=== PATIENT | female | born 1950 | race American Indian/Alaskan Native ===

== ENCOUNTER 2016-08-11 15:04 | Inpatient (IN) | payer MEDICARE ==
[2016-08-11 15:45] LABS: Urine Drugs of Abuse Note Disclamer
[2016-08-11 15:58] LABS: Hematocrit 21.3 % (30.3-42.9); Hemoglobin 6.8 gm/dl (10.1-14.3); Mean Corpuscular HGB Conc 32 % (30-34); Mean Corpuscular Hemoglobin 29 pg (28-32); Mean Corpuscular Volume 91 fl (79-97); Platelet Count 315 K/mm3 (140-440); Red Blood Count 2.33 M/mm3 (3.65-5.03); Red Cell Distribution Width 18.6 % (13.2-15.2)
[2016-08-11 16:05] LABS: White Blood Count 51.4 K/mm3 (4.5-11.0)
[2016-08-11 16:10] LABS: Bacteria,Urine 4+ /HPF (Negative); Bilirubin,Urine NEG (Negative); Blood,Urine SM (Negative); Ketones,Urine TR mg/dL (Negative); Leukocyte Esterase,Urine MOD (Negative); Nitrite,Urine NEG (Negative); Urobilinogen,Urine < 2.0 mg/dL (<2.0)
[2016-08-11 16:22] LABS: Albumin 2.3 g/dL (3.9-5); Albumin/Globulin Ratio 0.5 %; BUN/Creatinine Ratio 16.31; Calcium 8.2 mg/dL (8.4-10.2); Chloride 91.1 mmol/L (98-107); Magnesium 2.2 mg/dL (1.7-2.3); Potassium 3.2 mmol/L (3.6-5.0); Total Protein 7.1 g/dL (6.3-8.2)
[2016-08-11 16:28] LABS: Protein,Urine >500 mg/dL (Negative); WBC,Urine > 182.0 /HPF (0.0-6.0)
--- NOTE | 2016-08-11 16:34 | Emergency Department Report ---
HPI - General Chief Complaint: Altered Mental Status Time Seen by Provider: 08/11/16 16:12 - HPI HPI: Room 26 The patient is a 65-year-old female sent from the sn[facility] with a chief complaint of altered mental status. Family states the patient came back from dialysis today at approximately noon and was reported to have been in normal state of health. At 14:00 the patient was found unresponsive in the snf. Although a CODE BLUE was called CPR was performed. Family states by the time EMS arrived the patient began speaking again. Family reports the patient has had episodes of nausea and vomiting for the past 2 days. Today the patient only complained of pain in her legs and back as she normally does for her decubitus ulcers. 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 Anemia - Surgical History Additional Surgical History: toe surgery, PEG tube - Family History Family history: no significant - Social History Smoking Status: Unknown if ever smoked Substance Use Type: None - Medications Home Medications: Home Medications Medication Instructions Recorded Confirmed Last Taken Type Bisacodyl [Dulcolax suppos] 10 mg CO QDAY PRN #30 supp.rect 12/14/15 08/11/16 Unknown Rx levETIRAcetam [Keppra TAB] 500 mg PO Q12H tablet 12/14/15 08/11/16 Unknown Rx Acetaminophen [Acetaminophen TAB] 650 mg FEEDTUBE Q6HR PRN 03/10/16 08/11/16 Unknown History Ascorbic Acid [Vitamin C] 500 mg FEEDTUBE BID 03/10/16 08/11/16 Unknown History Diphenhydramine HCl [Benadryl 25 mg FEEDTUBE Q6H PRN 03/10/16 08/11/16 Unknown History Allergy TAB] Duloxetine HCl [Cymbalta] 60 mg FEEDTUBE QDAY 03/10/16 08/11/16 Unknown History Hyoscyamine Sulfate [Hyoscyamine 0.125 mg PO Q4H PRN 03/10/16 08/11/16 Unknown History Rapdis 0.125 mg] Insulin Regular, Human [HumuLIN R] 100 units SQ ACHS 03/10/16 08/11/16 Unknown History LORazepam [Ativan] 1 mg PO TID PRN 03/10/16 08/11/16 Unknown History Metoprolol Tartrate 100 mg PO BID 03/10/16 08/11/16 Unknown History amLODIPine [Norvasc] 10 mg FEEDTUBE QDAY 03/10/16 08/11/16 Unknown History hydrALAZINE [Apresoline TAB] 100 mg FEEDTUBE TID 03/10/16 08/11/16 Unknown History Insulin Aspart Prot/Aspart See Protocol SUB-Q ACHS 05/27/16 08/11/16 Unknown History [NovoLOG Mix 70/30 VIAL] Insulin Glargine [Lantus VIAL] 10 unit SUB-Q QHS 05/27/16 08/11/16 Unknown History Multivitamins Liq [Multiple 15 ml FEEDTUBE QDAY 05/27/16 08/11/16 Unknown History Vitamin Liq (Theragran)] Nut.tx.gluc.intoler,Lac-Fr,Soy 50 ml FEEDTUBE CONT 05/27/16 08/11/16 Unknown History [Glucerna 1.5 [place]] oxyCODONE /ACETAMINOPHEN [Percocet 1 tab FEEDTUBE Q6H PRN 05/27/16 08/11/16 Unknown History 5/325 mg] HYDROcodone/APAP 5-325 [[place] 1 each FEEDTUBE Q12HR #10 05/31/16 08/11/16 Unknown Rx 5-325 mg TAB] Lipase/Protease/Amylase [Pancreaze 1 each FEEDTUBE PRN PRN #1 capsule 05/31/16 08/11/[address] 10,500 Unit] Sennosides Tab [Senokot] 8.6 mg FEEDTUBE QDAY tablet 05/31/16 08/11/16 Unknown Rx Simple Syrup 15 ml FEEDTUBE PRN PRN #1 oral.liqd 05/31/16 08/11/16 Unknown Rx Simple Syrup 30 ml FEEDTUBE PRN PRN #1 oral.liqd 05/31/16 08/11/16 Unknown Rx Sodium Bicarbonate 325 mg FEEDTUBE PRN PRN #1 tablet 05/31/16 08/11/16 Unknown Rx Aspirin EC [Aspirin Enteric Coated 325 mg FEEDTUBE QDAY 08/11/16 08/11/16 Unknown History TAB] ED Review of Systems ROS: Stated complaint: AMS Other details as noted in HPI Comment: Unobtainable due to pts medical conditions Gastrointestinal: nausea, vomiting Physical Exam - Physical Exam Vital Signs: Vital Signs 08/11/16 15:39 Pulse Rate 114 H Respiratory 28 H Rate Blood Pressure 174/116 [Right] O2 Sat by Pulse 96 Oximetry Physical Exam: GENERAL: The patient is well-developed well-nourished elderly female lying on stretcher appearing altered mumbling unintelligible speech at times. [] HEENT: Normocephalic. Atraumatic. Extraocular motions are intact. NECK: Supple. Trachea midline CHEST/LUNGS: Clear to auscultation. There is slight tachypnea HEART/CARDIOVASCULAR: Regular. There is tachycardia. There is no gallop rub or murmur. ABDOMEN: Abdomen is soft, nontender. Patient has normal bowel sounds. There is no abdominal distention. SKIN: There is no rash. There is no edema. There is no diaphoresis. NEURO: The patient is awake but appears lethargic. The patient has mumbling speech. Patient is not cooperative with interview MUSCULOSKELETAL: There is no evidence of acute injury. ED Course Vital Signs 08/11/16 15:39 Pulse Rate 114 H Respiratory 28 H Rate Blood Pressure 174/116 [Right] O2 Sat by Pulse 96 Oximetry ED Medical Decision Making - Lab Data Result diagrams: 08/11/16 15:28 08/11/16 15:28 Laboratory Tests 08/11/16 08/11/16 08/11/16 15:17 15:17 15:28 WBC 51.4 H* RBC 2.33 L Hgb 6.8 L Hct 21.3 L MCV 91 MCH 29 MCHC 32 RDW 18.6 H Plt Count 315 Add Manual Diff Complete Total Counted 200 Seg Neuts % (Manual) 89.5 H Band Neutrophils % 0 Lymphocytes % (Manual) 5.5 L Reactive Lymphs % (Man) 0 Monocytes % (Manual) 4.0 Eosinophils % (Manual) 0 Basophils % (Manual) 0 Metamyelocytes % 0 Myelocytes % 0 Promyelocytes % 0 Blast Cells % 1.0 Nucleated RBC % Not Reportable Seg Neutrophils # Man 46.0 H Band Neutrophils # 0.0 Lymphocytes # (Manual) 2.8 Abs React Lymphs (Man) 0.0 Monocytes # (Manual) 2.1 H Eosinophils # (Manual) 0.0 Basophils # (Manual) 0.0 Metamyelocytes # 0.0 Myelocytes # 0.0 Promyelocytes # 0.0 Blast Cells # 0.4 WBC Morphology Not Reportable Hypersegmented Neuts Not Reportable Hyposegmented Neuts Not Reportable Hypogranular Neuts Not Reportable Smudge Cells Not Reportable Toxic Granulation Not Reportable Toxic Vacuolation Not Reportable Dohle Bodies Not Reportable Pelger-Huet Anomaly Not Reportable Quynh Rods Not Reportable Platelet Estimate Appears normal Clumped Platelets Not Reportable Plt Clumps, EDTA Not Reportable Large Platelets Not Reportable Giant Platelets Not Reportable Platelet Satelliting Not Reportable Plt Morphology Comment Not Reportable RBC Morphology Not Reportable Dimorphic RBCs Not Reportable Polychromasia Not Reportable Hypochromasia Not Reportable Poikilocytosis Not Reportable Anisocytosis Not Reportable Microcytosis 1+ Macrocytosis Not Reportable Spherocytes Not Reportable Pappenheimer Bodies Not Reportable Sickle Cells Not Reportable Target Cells Not Reportable Tear Drop Cells Not Reportable Ovalocytes Not Reportable Helmet Cells Not Reportable [place] Bodies Not Reportable [place] Rings Not Reportable David Cells Not Reportable Bite Cells Not Reportable Crenated Cell Not Reportable Elliptocytes Not Reportable Acanthocytes (Spur) Not Reportable Rouleaux Not Reportable Hemoglobin C Crystals Not Reportable Schistocytes Not Reportable Malaria parasites Not Reportable Vinny Bodies Not Reportable Hem Pathologist Commnt Sent to pathology Sodium Potassium Chloride Carbon Dioxide Anion Gap BUN Creatinine Estimated GFR BUN/Creatinine Ratio Glucose Lactic Acid Calcium Magnesium Total Bilirubin AST ALT Alkaline Phosphatase Total Protein Albumin Albumin/Globulin Ratio Urine Color [place] Urine Turbidity Turbid Urine pH 5.0 Ur Specific [place] 1.022 Urine Protein >500 Urine Glucose (UA) Neg Urine Ketones Tr Urine Blood Sm Urine Nitrite Neg Ur Reducing Substances Not Reportable Urine Bilirubin Neg Urine Ictotest Not Reportable Urine Urobilinogen < 2.0 Ur Leukocyte Esterase Mod Urine WBC (Auto) > 182.0 H Urine RBC (Auto) 48.0 U Epithel Cells (Auto) 4.0 Urine Bacteria (Auto) 4+ Urine HCG, Qual Negative Salicylates Urine Opiates Screen Presumptive negative Urine Methadone Screen Presumptive negative Acetaminophen Ur Barbiturates Screen Presumptive negative Ur Phencyclidine Scrn Presumptive negative Ur Amphetamines Screen Presumptive negative U Benzodiazepines Scrn Presumptive negative Urine Cocaine Screen Presumptive negative U Marijuana (THC) Screen Presumptive negative Drugs of Abuse Note Disclamer Plasma/Serum Alcohol 08/11/16 08/11/16 08/11/16 15:28 15:28 15:28 WBC RBC Hgb Hct MCV MCH MCHC RDW Plt Count Add Manual Diff Total Counted Seg Neuts % (Manual) Band Neutrophils % Lymphocytes % (Manual) Reactive Lymphs % (Man) Monocytes % (Manual) Eosinophils % (Manual) Basophils % (Manual) Metamyelocytes % Myelocytes % Promyelocytes % Blast Cells % Nucleated RBC % Seg Neutrophils # Man Band Neutrophils # Lymphocytes # (Manual) Abs React Lymphs (Man) Monocytes # (Manual) Eosinophils # (Manual) Basophils # (Manual) Metamyelocytes # Myelocytes # Promyelocytes # Blast Cells # WBC Morphology Hypersegmented Neuts Hyposegmented Neuts Hypogranular Neuts Smudge Cells Toxic Granulation Toxic Vacuolation Dohle Bodies Pelger-Huet Anomaly Quynh Rods Platelet Estimate Clumped Platelets Plt Clumps, EDTA Large Platelets Giant Platelets Platelet Satelliting Plt Morphology Comment RBC Morphology Dimorphic RBCs Polychromasia Hypochromasia Poikilocytosis Anisocytosis Microcytosis Macrocytosis Spherocytes Pappenheimer Bodies Sickle Cells Target Cells Tear Drop Cells Ovalocytes Helmet Cells [place] Bodies [place] Rings David Cells Bite Cells Crenated Cell Elliptocytes Acanthocytes (Spur) Rouleaux Hemoglobin C Crystals Schistocytes Malaria parasites Vinny Bodies Hem Pathologist Commnt Sodium 133 L Potassium 3.2 L Chloride 91.1 L Carbon Dioxide 19 L Anion Gap 26 BUN 31 H Creatinine 1.9 H Estimated GFR 32 BUN/Creatinine Ratio 16.31 Glucose 180 H Lactic Acid 5.4 H* Calcium 8.2 L Magnesium 2.2 Total Bilirubin 1.0 AST 258 H ALT 201 H Alkaline Phosphatase 458 H Total Protein 7.1 Albumin 2.3 L Albumin/Globulin Ratio 0.5 Urine Color Urine Turbidity Urine pH Ur Specific [place] Urine Protein Urine Glucose (UA) Urine Ketones Urine Blood Urine Nitrite Ur Reducing Substances Urine Bilirubin Urine Ictotest Urine Urobilinogen Ur Leukocyte Esterase Urine WBC (Auto) Urine RBC (Auto) U Epithel Cells (Auto) Urine Bacteria (Auto) Urine HCG, Qual Salicylates < 0.3 L Urine Opiates Screen Urine Methadone Screen Acetaminophen Ur Barbiturates Screen Ur Phencyclidine Scrn Ur Amphetamines Screen U Benzodiazepines Scrn Urine Cocaine Screen U Marijuana (THC) Screen Drugs of Abuse Note Plasma/Serum Alcohol 08/11/16 08/11/16 15:28 15:28 WBC RBC Hgb Hct MCV MCH MCHC RDW Plt Count Add Manual Diff Total Counted Seg Neuts % (Manual) Band Neutrophils % Lymphocytes % (Manual) Reactive Lymphs % (Man) Monocytes % (Manual) Eosinophils % (Manual) Basophils % (Manual) Metamyelocytes % Myelocytes % Promyelocytes % Blast Cells % Nucleated RBC % Seg Neutrophils # Man Band Neutrophils # Lymphocytes # (Manual) Abs React Lymphs (Man) Monocytes # (Manual) Eosinophils # (Manual) Basophils # (Manual) Metamyelocytes # Myelocytes # Promyelocytes # Blast Cells # WBC Morphology Hypersegmented Neuts Hyposegmented Neuts Hypogranular Neuts Smudge Cells Toxic Granulation Toxic Vacuolation Dohle Bodies Pelger-Huet Anomaly Quynh Rods Platelet Estimate Clumped Platelets Plt Clumps, EDTA Large Platelets Giant Platelets Platelet Satelliting Plt Morphology Comment RBC Morphology Dimorphic RBCs Polychromasia Hypochromasia Poikilocytosis Anisocytosis Microcytosis Macrocytosis Spherocytes Pappenheimer Bodies Sickle Cells Target Cells Tear Drop Cells Ovalocytes Helmet Cells [place] Bodies [place] Rings David Cells Bite Cells Crenated Cell Elliptocytes Acanthocytes (Spur) Rouleaux Hemoglobin C Crystals Schistocytes Malaria parasites Vinny Bodies Hem Pathologist Commnt Sodium Potassium Chloride Carbon Dioxide Anion Gap BUN Creatinine Estimated GFR BUN/Creatinine Ratio Glucose Lactic Acid Calcium Magnesium Total Bilirubin AST ALT Alkaline Phosphatase Total Protein Albumin Albumin/Globulin Ratio Urine Color Urine Turbidity Urine pH Ur Specific [place] Urine Protein Urine Glucose (UA) Urine Ketones Urine Blood Urine Nitrite Ur Reducing Substances Urine Bilirubin Urine Ictotest Urine Urobilinogen Ur Leukocyte Esterase Urine WBC (Auto) Urine RBC (Auto) U Epithel Cells (Auto) Urine Bacteria (Auto) Urine HCG, Qual Salicylates Urine Opiates Screen Urine Methadone Screen Acetaminophen < 15.0 Ur Barbiturates Screen Ur Phencyclidine Scrn Ur Amphetamines Screen U Benzodiazepines Scrn Urine Cocaine Screen U Marijuana (THC) Screen Drugs of Abuse Note Plasma/Serum Alcohol < 0.01 - EKG Data -: EKG Interpreted by Me EKG shows normal: sinus rhythm Rate: tachycardia (112 bpm) - EKG Data When compared to previous EKG there are: previous EKG unavailable - Radiology Data Radiology results: image reviewed (chest x-ray) interpreted by me: Chest [id number]. Slightly obscured left costophrenic angle - Differential Diagnosis sepsis, leukemia, UTI Critical care attestation.: If time is entered above; I have spent that time in minutes in the direct care of this critically ill patient, excluding procedure time. ED Disposition Clinical Impression: UTI (urinary tract infection), Lactic acidosis, Altered mental status, Leukocytosis Disposition: OP ADMITTED IP TO THIS HOSP Is pt being admited?: Yes Does the pt Need Aspirin: Yes Condition: Serious Time of Disposition: 17:10 (hospitalist paged)
[2016-08-11 16:41] LABS: Basophils % (Manual) 0 % (0.0-1.8); Eosinophils % (Manual) 0 % (0.0-4.3)
[2016-08-11 16:46] LABS: Diff Status Complete; Microcytosis 1+
[2016-08-11] MEDS: TYLENOL FEEDTUBE PRN (16:56)
[2016-08-11] MEDS ORDERED: ZOSYN/NS 2.25 GM/50ML 50 ML IV ONE (17:30)
[2016-08-11] MEDS ORDERED: MORPHINE ONE (18:14)
[2016-08-11] MEDS ORDERED: DULCOLAX PR PRN (18:53)
[2016-08-11] MEDS ORDERED: TYLENOL PO PRN (18:53)
[2016-08-11] MEDS ORDERED: ZOFRAN IV PRN (18:53)
[2016-08-11] MEDS ORDERED: MILK OF MAGNESIA PO PRN (18:53)
[2016-08-11] MEDS ORDERED: NACL 0.45% 1000 ML 1,000 ML IV SCH (19:00)
[2016-08-11] MEDS ORDERED: VANCOMYCIN/NS 1 GM/250 ML 250 ML IV ONE (19:01)
[2016-08-11] MEDS ORDERED: NACL 0.9% 500 ML 500 ML IV NR (19:11)
[2016-08-11] MEDS ORDERED: APRESOLINE FEEDTUBE SCH (20:00)
--- NOTE | 2016-08-11 20:34 | History and Physical Report ---
History of Present Illness Date of examination: 08/11/16 Chief complaint: Altered mental status History of present illness: 65-year-old AA female sent from the [facility] with a chief complaint of altered mental status. Family states the patient came back from dialysis today at approximately noon and was reported to have been in normal state of health. At 14:00 the patient was found unresponsive in the snf. Family states by the time EMS arrived the patient began speaking again. Family reports the patient has had episodes of nausea and vomiting for the past 2 days. Today the patient only complained of pain in her legs and back as she normally does for her decubitus ulcers. Patient appears confused and does not answer questions. Family at bed side. Unable to obtain any history whatsoever from the patient. Her initial blood pressure was 170/116. At this time her blood pressure dropped to 92 systolic. She is tachycardiac, marked leukocytosis left shift and elevated lactate levels. She has UTI and multiple decubitus ulcers.She Will be admitted to intensive care unit with the presumptive diagnosis of septic shock. Past History Past Medical History: anemia, COPD, diabetes, ESRD, heart failure, hypertension , seizures, other (dementia, chronic pain, mood disorder) Past Surgical History: Other (permacath in the left chest, toe surgery) Social history: no significant social history Family history: no significant family history Medications and Allergies Allergies Allergy/AdvReac Type Severity Reaction Status Date / Time Iodine and Iodide Containing Allergy Nausea Verified 05/29/15 12:33 Produc Home Medications Medication Instructions Recorded Confirmed Last Taken Type Bisacodyl [Dulcolax suppos] 10 mg NC QDAY PRN #30 supp.rect 12/14/15 08/11/16 Unknown Rx levETIRAcetam [Keppra TAB] 500 mg PO Q12H tablet 12/14/15 08/11/16 Unknown Rx Acetaminophen [Acetaminophen TAB] 650 mg FEEDTUBE Q6HR PRN 03/10/16 08/11/16 Unknown History Ascorbic Acid [Vitamin C] 500 mg FEEDTUBE BID 03/10/16 08/11/16 Unknown History Diphenhydramine HCl [Benadryl 25 mg FEEDTUBE Q6H PRN 03/10/16 08/11/16 Unknown History Allergy TAB] Duloxetine HCl [Cymbalta] 60 mg FEEDTUBE QDAY 03/10/16 08/11/16 Unknown History Hyoscyamine Sulfate [Hyoscyamine 0.125 mg PO Q4H PRN 03/10/16 08/11/16 Unknown History Rapdis 0.125 mg] Insulin Regular, Human [HumuLIN R] 100 units SQ ACHS 03/10/16 08/11/16 Unknown History LORazepam [Ativan] 1 mg PO TID PRN 03/10/16 08/11/16 Unknown History Metoprolol Tartrate 100 mg PO BID 03/10/16 08/11/16 Unknown History amLODIPine [Norvasc] 10 mg FEEDTUBE QDAY 03/10/16 08/11/16 Unknown History hydrALAZINE [Apresoline TAB] 100 mg FEEDTUBE TID 03/10/16 08/11/16 Unknown History Insulin Aspart Prot/Aspart See Protocol SUB-Q ACHS 05/27/16 08/11/16 Unknown History [NovoLOG Mix 70/30 VIAL] Insulin Glargine [Lantus VIAL] 10 unit SUB-Q QHS 05/27/16 08/11/16 Unknown History Multivitamins Liq [Multiple 15 ml FEEDTUBE QDAY 05/27/16 08/11/16 Unknown History Vitamin Liq (Theragran)] Nut.tx.gluc.intoler,Lac-Fr,Soy 50 ml FEEDTUBE CONT 05/27/16 08/11/16 Unknown History [Glucerna 1.5 [place]] oxyCODONE /ACETAMINOPHEN [Percocet 1 tab FEEDTUBE Q6H PRN 05/27/16 08/11/16 Unknown History 5/325 mg] HYDROcodone/APAP 5-325 [[place] 1 each FEEDTUBE Q12HR #10 05/31/16 08/11/16 Unknown Rx 5-325 mg TAB] Lipase/Protease/Amylase [Pancreaze 1 each FEEDTUBE PRN PRN #1 capsule 05/31/16 08/11/[address] 10,500 Unit] Sennosides Tab [Senokot] 8.6 mg FEEDTUBE QDAY tablet 05/31/16 08/11/16 Unknown Rx Simple Syrup 15 ml FEEDTUBE PRN PRN #1 oral.liqd 05/31/16 08/11/16 Unknown Rx Simple Syrup 30 ml FEEDTUBE PRN PRN #1 oral.liqd 10/06/16 12/17/16 Unknown Rx Sodium Bicarbonate 325 mg FEEDTUBE PRN PRN #1 tablet 05/31/16 08/11/16 Unknown Rx Aspirin EC [Aspirin Enteric Coated 325 mg FEEDTUBE QDAY 08/11/16 08/11/16 Unknown History TAB] Active Meds: Active Medications Acetaminophen (Tylenol) 1,000 mg FEEDTUBE Q6H PRN PRN Reason: Pain, Mild (1-3) Last Admin: 08/11/16 16:56 Dose: 1,000 mg Albuterol/Ipratropium (Duoneb 0.5 Mg-3 Mg/3 Ml Soln) 1 ampul IH Q8HRT LUCITA Bisacodyl (Dulcolax) 10 mg NC QDAY PRN PRN Reason: Constipation unrelieved by MOM Heparin Sodium (Porcine) (Heparin) 5,000 unit SUB-Q Q12HR LUCITA Vancomycin HCl (Vancomycin/Ns 1 Gm/250 Ml) 250 mls @ 167 mls/hr IV ONCE.ED ONE PRN Reason: Protocol Stop: 08/11/16 20:30 Last Admin: 08/11/16 20:18 Dose: 167 mls/hr Piperacillin Sod/Tazobactam Sod (Zosyn/Ns 2.25 Gm/50ml) 50 mls @ 50 mls/30 min IV Q8H [place] Sodium Chloride (Nacl 0.9% 500 Ml) 500 mls @ 0 mls/hr IV ONCE.ED NR PRN Reason: As Directed Stop: 08/12/16 19:10 Insulin Aspart (Novolog) 0 units SUB-Q ACHS LUCITA PRN Reason: Protocol Levetiracetam (Keppra) 500 mg PO BID LUCITA Magnesium Hydroxide (Milk Of Magnesia) 30 ml PO Q4H PRN PRN Reason: Constipation Morphine Sulfate (Morphine) 2 mg IV Q4H PRN PRN Reason: Pain, Moderate (4-6) Ondansetron HCl (Zofran) 4 mg IV Q8H PRN PRN Reason: N/V unrelieved by Reglan Potassium Chloride (Potassium Chloride) 20 meq FEEDTUBE QDAY LUCITA Review of Systems All systems: negative (as stated above in the history of present illness otherwise unobtainable) Exam - Physical Exam Narrative exam: Well-developed well-nourished female who is confused and mumbling "pain"not in any acute respiratory distress - Constitutional Vitals: Temp Pulse Resp BP Pulse Ox 98.8 F 91 H 26 H 92/47 96 08/11/16 20:13 08/11/16 20:13 08/11/16 20:13 08/11/16 20:13 08/11/16 20:13 General appearance: Present: no acute distress - EENT Eyes: Present: PERRL, EOM intact ENT: hearing intact, clear oral mucosa - Neck Neck: Present: supple, normal ROM. Absent: masses or JVD - Respiratory Respiratory effort: normal Respiratory: bilateral: CTA, diminished - Cardiovascular Rhythm: other (tachycardiac) Heart Sounds: Present: S1 & S2 - Extremities Extremities: No edema Extremity abnormal: pulses diminished, other (has bilateral ankle decubiti) - Abdominal General gastrointestinal: Present: soft, non-tender, other (has a PEG tube, has a sacral decubitus). Absent: hepatomegaly, splenomegaly - Integumentary Integumentary: Present: clear, warm - Neurologic Neurologic: focal deficits, moves all extremities Results - Labs CBC & Chem 7: 08/11/16 15:28 08/11/16 15:28 Labs: Abnormal lab results 08/11/16 08/11/16 08/11/16 Range/Units 15:17 15:28 15:28 WBC 51.4 H* (4.5-11.0) K/mm3 RBC 2.33 L (3.65-5.03) M/mm3 Hgb 6.8 L (10.1-14.3) gm/dl Hct 21.3 L (30.3-42.9) % RDW 18.6 H (13.2-15.2) % Seg Neuts % (Manual) 89.5 H (40.0-70.0) % Lymphocytes % (Manual) 5.5 L (13.4-35.0) % Seg Neutrophils # Man 46.0 H (1.8-7.7) K/mm3 Monocytes # (Manual) 2.1 H (0.0-0.8) K/mm3 Sodium 133 L (137-145) mmol/L Potassium 3.2 L (3.6-5.0) mmol/L Chloride 91.1 L (98-107) mmol/L Carbon Dioxide 19 L (22-30) mmol/L BUN 31 H (7-17) mg/dL Creatinine 1.9 H (0.7-1.2) mg/dL Glucose 180 H (65-100) mg/dL Lactic Acid (0.7-2.0) mmol/L Calcium 8.2 L (8.4-10.2) mg/dL AST 258 H (5-40) units/L ALT 201 H (7-56) units/L Alkaline Phosphatase 458 H (35-129) units/L Ammonia (25-60) umol/L Albumin 2.3 L (3.9-5) g/dL Urine WBC (Auto) > 182.0 H (0.0-6.0) /HPF Salicylates (2.8-20.0) mg/dL 08/11/16 08/11/16 08/11/16 Range/Units 15:28 15:28 15:54 WBC (4.5-11.0) K/mm3 RBC (3.65-5.03) M/mm3 Hgb (10.1-14.3) gm/dl Hct (30.3-42.9) % RDW (13.2-15.2) % Seg Neuts % (Manual) (40.0-70.0) % Lymphocytes % (Manual) (13.4-35.0) % Seg Neutrophils # Man (1.8-7.7) K/mm3 Monocytes # (Manual) (0.0-0.8) K/mm3 Sodium (137-145) mmol/L Potassium (3.6-5.0) mmol/L Chloride (98-107) mmol/L Carbon Dioxide (22-30) mmol/L BUN (7-17) mg/dL Creatinine (0.7-1.2) mg/dL Glucose (65-100) mg/dL Lactic Acid 5.4 H* (0.7-2.0) mmol/L Calcium (8.4-10.2) mg/dL AST (5-40) units/L ALT (7-56) units/L Alkaline Phosphatase (35-129) units/L Ammonia 135.0 H (25-60) umol/L Albumin (3.9-5) g/dL Urine WBC (Auto) (0.0-6.0) /HPF Salicylates < 0.3 L (2.8-20.0) mg/dL //16 Range/Units 18:31 WBC (4.5-11.0) K/mm3 RBC (3.65-5.03) M/mm3 Hgb (10.1-14.3) gm/dl Hct (30.3-42.9) % RDW (13.2-15.2) % Seg Neuts % (Manual) (40.0-70.0) % Lymphocytes % (Manual) (13.4-35.0) % Seg Neutrophils # Man (1.8-7.7) K/mm3 Monocytes # (Manual) (0.0-0.8) K/mm3 Sodium (137-145) mmol/L Potassium (3.6-5.0) mmol/L Chloride (98-107) mmol/L Carbon Dioxide (22-30) mmol/L BUN (7-17) mg/dL Creatinine (0.7-1.2) mg/dL Glucose (65-100) mg/dL Lactic Acid 6.7 H* (0.7-2.0) mmol/L Calcium (8.4-10.2) mg/dL AST (5-40) units/L ALT (7-56) units/L Alkaline Phosphatase (35-129) units/L Ammonia (25-60) umol/L Albumin (3.9-5) g/dL Urine WBC (Auto) (0.0-6.0) /HPF Salicylates (2.8-20.0) mg/dL Assessment and Plan - Patient Problems (1) Septic shock Current Visit: Yes Status: Acute Plan to address problem: sepsis protocol initiated BC X 2 Serial serum lactate levels IV antibiotics with Zosyn and Vancomycin IV fluids(with caution as patient has ESRD) ID consult Discussed the patients condition and the prognosis with the family. Discussed about the code status They want everything done Prognosis is guarded (2) Altered mental status Current Visit: Yes Status: Acute Plan to address problem: Slightly toxic encephalopathy secondary to sepsis (3) Leukocytosis Current Visit: Yes Status: Acute Plan to address problem: Secondary to sepsis (4) UTI (urinary tract infection) Current Visit: Yes Status: Acute Plan to address problem: UA results reviewed Antibiotics initiated (5) Diabetes mellitus, type 2 Current Visit: No Status: Chronic Plan to address problem: Vital blood sugars with sliding scale coverage (6) HTN (hypertension) Current Visit: No Status: Chronic Qualifiers: Hypertension type: essential hypertension Qualified Code(s): I10 - Essential (primary) hypertension Plan to address problem: Initially upon arrival her blood pressure was 167/116 over since then it dropped to 92 systolic We will hold all her home antihypertensive medications (7) End stage renal disease Current Visit: Yes Status: Chronic Plan to address problem: Nephrology consult was requested (8) Severe anemia Current Visit: Yes Status: Acute Plan to address problem: Will type and cross match and transfuse 2 units of PRBC as she is symptomatic with tachycardia although tachycardia is possibly from septic shock (9) Seizure disorder Current Visit: Yes Status: Chronic Plan to address problem: We will continue antiseizure home medication via PEG tube Core Measure Documentation - Palliative Care Palliative Care/ Comfort Measures: Not Applicable - Core Measures Any of the following diagnoses?: none Critical care attestation.: If time is entered above; I have spent that time in minutes in the direct care of this critically ill patient, excluding procedure time. Critical Care Time: total time spent with the patient including examination, discussing the patient' s condition with the family and reviewing lab results was 45 min. She is a full code
[2016-08-11] MEDS ORDERED: NACL 0.9% 250ML 250 ML ONE (21:45)
[2016-08-11] MEDS ORDERED: NACL 0.9% 250ML 250 ML IV ONE (21:53)
[2016-08-11] MEDS ORDERED: LOPRESSOR PO SCH (22:00)
[2016-08-11] MEDS ORDERED: LEVOPHED DRIP 4 MG/NS 250 ML 250 ML IV ONE (22:02)
[2016-08-11] MEDS: LEVOPHED DRIP 4 MG/NS 250 ML 250 ML IV SCH (22:42)
[2016-08-11] MEDS: DUONEB 0.5 MG-3 MG/3 ML SOLN IH SCH (23:40)
[2016-08-12] MEDS: KEPPRA PO SCH ×3 (02:30→22:31)
[2016-08-12] MEDS: HEPARIN SUB-Q SCH ×3 (02:30→22:26)
[2016-08-12] MEDS: NOVOLOG SUB-Q SCH ×5 (02:38→22:50)
[2016-08-12] MEDS: MORPHINE IV PRN ×2 (02:39→20:28)
[2016-08-12] MEDS: ZOSYN/NS 2.25 GM/50ML 50 ML IV SCH ×3 (03:00→17:06)
[2016-08-12 06:12] LABS: Hematocrit 28.1 % (30.3-42.9); Hemoglobin 8.7 gm/dl (10.1-14.3); Mean Corpuscular HGB Conc 31 % (30-34); Mean Corpuscular Hemoglobin 28 pg (28-32); Mean Corpuscular Volume 90 fl (79-97); Platelet Count 292 K/mm3 (140-440); Red Blood Count 3.14 M/mm3 (3.65-5.03); Red Cell Distribution Width 18.3 % (13.2-15.2)
[2016-08-12 06:30] LABS: BUN/Creatinine Ratio 19.13; Calcium 8.2 mg/dL (8.4-10.2); Chloride 92.4 mmol/L (98-107)
[2016-08-12 06:31] LABS: White Blood Count 38.6 K/mm3 (4.5-11.0)
[2016-08-12 07:33] LABS: Basophils % (Manual) 0 % (0.0-1.8); Blastocytes % (Manual) 0 %
[2016-08-12 07:34] LABS: Anisocytosis 1+; Hypochromasia Few; Microcytosis 1+; Toxic Granulation Few
[2016-08-12 07:35] LABS: Diff Status Complete; Large Platelets Rare
[2016-08-12] MEDS: POTASSIUM CHLORIDE FEEDTUBE SCH (09:41)
[2016-08-12] MEDS: DUONEB 0.5 MG-3 MG/3 ML SOLN IH SCH ×3 (09:43→23:42)
--- NOTE | 2016-08-12 09:50 | Progress Note ---
Assessment and Plan Assessment and plan: 1. Septic shock. Patient with a significant leukocytosis but improved. Patient currently on Levophed. Wean pressors to maintain MAP greater than 65. Continue IV antibiotics and follow-up blood cultures. I did consultation pending. Trend lactate levels. 2. Toxic metabolic encephalopathy. Continue treating underlying causes. 3. UTI. Follow-up urine culture and continue antibiotics. 4. Diabetes mellitus, type II. Continue Accu-Cheks and sliding scale regular insulin. 5. ESRD. Nephrology consultation pending. Continue hemodialysis per nephrology. 6. Seizure disorder. Continue her antiepileptic home drug regimen via PEG tube. No new activity. Seizure precautions. 7. Acute on chronic anemia of chronic disease. Etiology is unknown. Check Hemoccult of stools, iron studies, B12, folate, reticulocyte count and LDH. Patient to receive 2 units PRBCs. Follow-up H&H. The high probability of a clinically significant, sudden or life threatening deterioration of the [hemodynamic] system(s) required my full and direct attention, intervention and personal management. The aggregate critical care time was [31] minutes. This time is in addition to time spent performing reported procedures but includes the following: [x] Data Review and interpretation [x] Patient assessment and monitoring of vital signs [x] Documentation [x] Medication orders and management History Interval history: 65-year-old female who presented from group home with complaints of altered mentation. Patient was admitted with diagnosis of septic shock secondary to UTI and decubitus ulcers. Patient is somnolent, somewhat confused and currently remains on Levophed. Hospitalist Physical - Constitutional Vitals: Temp Pulse Resp BP Pulse Ox 97.3 F L 90 17 115/46 99 08/12/16 07:09 08/12/16 09:15 08/12/16 09:15 08/12/16 09:15 08/12/16 09:15 General appearance: Present: no acute distress - EENT Eyes: Present: PERRL, EOM intact ENT: hearing intact, clear oral mucosa, dentition normal - Neck Neck: Present: supple, normal ROM - Respiratory Respiratory effort: normal Respiratory: bilateral: CTA - Cardiovascular Rhythm: regular Heart Sounds: Present: S1 & S2. Absent: gallop, rub - Extremities Extremities: no ischemia, No edema, Full ROM - Abdominal General gastrointestinal: soft, non-tender, non-distended, normal bowel sounds - Integumentary Integumentary: Present: clear, warm, dry - Neurologic Neurologic: CNII-XII intact, moves all extremities, other (confused) Results - Labs CBC & Chem 7: 08/12/16 05:30 08/12/16 05:30 Labs: Laboratory Last Values WBC 38.6 K/mm3 (4.5-11.0) H 08/12/16 05:30 RBC 3.14 M/mm3 (3.65-5.03) L 08/12/16 05:30 Hgb 8.7 gm/dl (10.1-14.3) L 08/12/16 05:30 Hct 28.1 % (30.3-42.9) L D 08/12/16 05:30 MCV 90 fl (79-97) 08/12/16 05:30 MCH 28 pg (28-32) 08/12/16 05:30 MCHC 31 % (30-34) 08/12/16 05:30 RDW 18.3 % (13.2-15.2) H 08/12/16 05:30 Plt Count 292 K/mm3 (140-440) 08/12/16 05:30 Add Manual Diff Complete 08/12/16 05:30 Total Counted 100 08/12/16 05:30 Seg Neuts % (Manual) 43.0 % (40.0-70.0) 08/12/16 05:30 Band Neutrophils % 37.0 % 08/12/16 05:30 Lymphocytes % (Manual) 9.0 % (13.4-35.0) L 08/12/16 05:30 Reactive Lymphs % (Man) 0 % 08/12/16 05:30 Monocytes % (Manual) 8.0 % (0.0-7.3) H 08/12/16 05:30 Eosinophils % (Manual) 3.0 % (0.0-4.3) 08/12/16 05:30 Basophils % (Manual) 0 % (0.0-1.8) 08/12/16 05:30 Metamyelocytes % 0 % 08/12/16 05:30 Myelocytes % 0 % 08/12/16 05:30 Promyelocytes % 0 % 08/12/16 05:30 Blast Cells % 0 % 08/12/16 05:30 Nucleated RBC % Not Reportable 08/12/16 05:30 Seg Neutrophils # Man 16.6 K/mm3 (1.8-7.7) H 08/12/16 05:30 Band Neutrophils # 14.3 K/mm3 08/12/16 05:30 Lymphocytes # (Manual) 3.5 K/mm3 (1.2-5.4) 08/12/16 05:30 Abs React Lymphs (Man) 0.0 K/mm3 08/12/16 05:30 Monocytes # (Manual) 3.1 K/mm3 (0.0-0.8) H 08/12/16 05:30 Eosinophils # (Manual) 1.2 K/mm3 (0.0-0.4) H 08/12/16 05:30 Basophils # (Manual) 0.0 K/mm3 (0.0-0.1) 08/12/16 05:30 Metamyelocytes # 0.0 K/mm3 08/12/16 05:30 Myelocytes # 0.0 K/mm3 08/12/16 05:30 Promyelocytes # 0.0 K/mm3 08/12/16 05:30 Blast Cells # 0.0 K/mm3 08/12/16 05:30 WBC Morphology Not Reportable 08/12/16 05:30 Hypersegmented Neuts Not Reportable 08/12/16 05:30 Hyposegmented Neuts Not Reportable 08/12/16 05:30 Hypogranular Neuts Not Reportable 08/12/16 05:30 Smudge Cells Not Reportable 08/12/16 05:30 Toxic Granulation Few 08/12/16 05:30 Toxic Vacuolation Not Reportable 08/12/16 05:30 Dohle Bodies Not Reportable 08/12/16 05:30 Pelger-Huet Anomaly Not Reportable 08/12/16 05:30 Quynh Rods Not Reportable 08/12/16 05:30 Platelet Estimate Appears normal 08/12/16 05:30 Clumped Platelets Not Reportable 08/12/16 05:30 Plt Clumps, EDTA Not Reportable 08/12/16 05:30 Large Platelets Rare 08/12/16 05:30 Giant Platelets Not Reportable 08/12/16 05:30 Platelet Satelliting Not Reportable 08/12/16 05:30 Plt Morphology Comment Not Reportable 08/12/16 05:30 RBC Morphology Not Reportable 08/12/16 05:30 Dimorphic RBCs Not Reportable 08/12/16 05:30 Polychromasia Not Reportable 08/12/16 05:30 Hypochromasia Few 08/12/16 05:30 Poikilocytosis Not Reportable 08/12/16 05:30 Anisocytosis 1+ 08/12/16 05:30 Microcytosis 1+ 08/12/16 05:30 Macrocytosis Not Reportable 08/12/16 05:30 Spherocytes Not Reportable 08/12/16 05:30 Pappenheimer Bodies Not Reportable 08/12/16 05:30 Sickle Cells Not Reportable 08/12/16 05:30 Target Cells Not Reportable 08/12/16 05:30 Tear Drop Cells Not Reportable 08/12/16 05:30 Ovalocytes Not Reportable 08/12/16 05:30 Helmet Cells Not Reportable 08/12/16 05:30 [place] Bodies Not Reportable 08/12/16 05:30 [place] Rings Not Reportable 08/12/16 05:30 [place] Cells Not Reportable 08/12/16 05:30 Bite Cells Not Reportable 08/12/16 05:30 Crenated Cell Not Reportable 08/12/16 05:30 Elliptocytes Not Reportable 08/12/16 05:30 Acanthocytes (Spur) Not Reportable 08/12/16 05:30 Rouleaux Not Reportable 08/12/16 05:30 Hemoglobin C Crystals Not Reportable 08/12/16 05:30 Schistocytes Not Reportable 08/12/16 05:30 Malaria parasites Not Reportable 08/12/16 05:30 [place] Bodies Not Reportable 08/12/16 05:30 Hem Pathologist Commnt No 08/12/16 05:30 Sodium 133 mmol/L (137-145) L 08/12/16 05:30 Potassium 3.0 mmol/L (3.6-5.0) L 08/12/16 05:30 Chloride 92.4 mmol/L (98-107) L 08/12/16 05:30 Carbon Dioxide 21 mmol/L (22-30) L 08/12/16 05:30 Anion Gap 23 mmol/L 08/12/16 05:30 BUN 44 mg/dL (7-17) H 08/12/16 05:30 Creatinine 2.3 mg/dL (0.7-1.2) H 08/12/16 05:30 Estimated GFR 26 ml/min 08/12/16 05:30 BUN/Creatinine Ratio 19.13 % 08/12/16 05:30 Glucose 270 mg/dL (65-100) H 08/12/16 05:30 POC Glucose 307 (70-105) H 08/12/16 02:35 Lactic Acid 2.0 mmol/L (0.7-2.0) 08/12/16 05:30 Calcium 8.2 mg/dL (8.4-10.2) L 08/12/16 05:30 Magnesium 2.2 mg/dL (1.7-2.3) 08/11/16 15:28 Total Bilirubin 1.0 mg/dL (0.1-1.2) 08/11/16 15:28 AST 258 units/L (5-40) H 08/11/16 15:28 ALT 201 units/L (7-56) H 08/11/16 15:28 Alkaline Phosphatase 458 units/L (35-129) H 08/11/16 15:28 Ammonia 135.0 umol/L (25-60) H 08/11/16 15:54 C-Reactive Protein 37.70 mg/dL (0.00-1.30) H 08/11/16 15:28 Total Protein 7.1 g/dL (6.3-8.2) 08/11/16 15:28 Albumin 2.3 g/dL (3.9-5) L 08/11/16 15:28 Albumin/Globulin Ratio 0.5 % 08/11/16 15:28 TSH 1.360 mlU/mL (0.270-4.200) 08/11/16 15:28 Urine Color [place] (Yellow) 08/11/16 15:17 Urine Turbidity Turbid (Clear) 08/11/16 15:17 Urine pH 5.0 (5.0-7.0) 08/11/16 15:17 Ur Specific [place] 1.022 (1.003-1.030) 08/11/16 15:17 Urine Protein >500 mg/dL (Negative) 08/11/16 15:17 Urine Glucose (UA) Neg mg/dL (Negative) 08/11/16 15:17 Urine Ketones Tr mg/dL (Negative) 08/11/16 15:17 Urine Blood Sm (Negative) 08/11/16 15:17 Urine Nitrite Neg (Negative) 08/11/16 15:17 Ur Reducing Substances Not Reportable 08/11/16 15:17 Urine Bilirubin Neg (Negative) 08/11/16 15:17 Urine Ictotest Not Reportable 08/11/16 15:17 Urine Urobilinogen < 2.0 mg/dL (<2.0) 08/11/16 15:17 Ur Leukocyte Esterase Mod (Negative) 08/11/16 15:17 Urine WBC (Auto) > 182.0 /HPF (0.0-6.0) H 08/11/16 15:17 Urine RBC (Auto) 48.0 /HPF (0.0-6.0) 08/11/16 15:17 U Epithel Cells (Auto) 4.0 /HPF (0-13.0) 08/11/16 15:17 Urine Bacteria (Auto) 4+ /HPF (Negative) 08/11/16 15:17 Urine HCG, Qual Negative (Negative) 08/11/16 15:17 Salicylates < 0.3 mg/dL (2.8-20.0) L 08/11/16 15:28 Urine Opiates Screen Presumptive negative 08/11/16 15:17 Urine Methadone Screen Presumptive negative 08/11/16 15:17 Acetaminophen < 15.0 ug/mL (10.0-30.0) 08/11/16 15:28 Ur Barbiturates Screen Presumptive negative 08/11/16 15:17 Ur Phencyclidine Scrn Presumptive negative 08/11/16 15:17 Ur Amphetamines Screen Presumptive negative 08/11/16 15:17 U Benzodiazepines Scrn Presumptive negative 08/11/16 15:17 Urine Cocaine Screen Presumptive negative 08/11/16 15:17 U Marijuana (THC) Screen Presumptive negative 08/11/16 15:17 Drugs of Abuse Note Disclamer 08/11/16 15:17 Plasma/Serum Alcohol < 0.01 gm% (0-0.07) 08/11/16 15:28 Blood Type B POSITIVE 08/11/16 19:45 Antibody Screen Negative 08/11/16 19:45 Crossmatch See Detail 08/11/16 19:45
[2016-08-12] MEDS ORDERED: NORVASC FEEDTUBE SCH (10:00)
--- NOTE | 2016-08-12 10:00 | XRay Report ---
AP CHEST: HISTORY: Altered mental status, leukocytosis Poor inspiration. A left IJ venous catheter terminates at the cavoatrial junction. AP view of the chest demonstrates a normal mediastinal and cardiac contour with clear lungs and normal bony and soft tissue structures. IMPRESSION: Negative expiratory chest x-ray.
--- NOTE | 2016-08-12 10:58 | Consultation ---
History of Present Illness - History of Present Illness Thank you for the consultation history of present illness patient is 62-year-old female who has been admitted here Currently she is dialysis dependent and yesterday after dialysis patient developed altered mental status also has intermittent history of nausea and vomiting for the last 2 days Chart was reviewed from this admission,Patient during this admission has also been noted to be hypertensive and also has elevated lactic acid level for which currently workup is under progress. Currently there is no acute emergent indication for renal replacement therapy, patient is currently dialyzed with permacath and need to rule out any possibility of bacteremia is there. She has many comorbiditiesat this time Patient was evaluated today Assessment and plan End-stage renal disease currently no acute emergent indication for renal replacement therapy in her case Patient was dialyzed yesterday and developed altered mental status subsequently Also has history of nausea and vomiting for last 2 days Hypokalemia needs replacement to keep her potassium around 4 can be given 20-40 mEq of potassium today Admitted with accelerated hypertension initial blood pressure was 170/116 and subsequently dropped profoundly to 92 systolic Encephalopathy altered mental status multifactorial at this time High suspicion for sepsis check cultures from the permacath to make sure she does not have bacteremia from the permacath infection currently in the left upper chest Patient also has other sources of infection including decubitus ulcer White cell count 51.4 thousand upon admission currently dropped down to 38.6 Anemia in end-stage renal disease post transfusion 8.7 now Lactic acid 5.4 upon admission peaked at 6.7 currently 2.0 Hyponatremia multifactorial to follow currently stable chronic Blood sugar uncontrolled 307 needs follow-up Patient currently does have an indwelling Rico catheter that needs to be changed discussed with nurse to change the Rico catheter History of multiple other comorbidities including anemia, COPD, diabetes, heart failure, hypertension, seizure, dementia Overall prognosis guarded to poor due to multiple comorbidities Supportive care for now We'll continue to follow and make recommendation from renal standpoint Past History Past Medical History: anemia, COPD, diabetes, ESRD, heart failure, hypertension , seizures, other (dementia, chronic pain, mood disorder) Past Surgical History: Other (permacath in the left chest, toe surgery) Social history: no significant social history Family history: no significant family history Medications and Allergies Allergies Allergy/AdvReac Type Severity Reaction Status Date / Time Iodine and Iodide Containing Allergy Nausea Verified 05/29/15 12:33 Produc Home Medications Medication Instructions Recorded Confirmed Last Taken Type Bisacodyl [Dulcolax suppos] 10 mg [place] QDAY PRN #30 supp.rect 12/14/15 08/11/16 Unknown Rx levETIRAcetam [Keppra TAB] 500 mg PO Q12H tablet 12/14/15 08/11/16 Unknown Rx Acetaminophen [Acetaminophen TAB] 650 mg FEEDTUBE Q6HR PRN 03/10/16 08/11/16 Unknown History Ascorbic Acid [Vitamin C] 500 mg FEEDTUBE BID 03/10/16 08/11/16 Unknown History Diphenhydramine HCl [Benadryl 25 mg FEEDTUBE Q6H PRN 03/10/16 08/11/16 Unknown History Allergy TAB] Duloxetine HCl [Cymbalta] 60 mg FEEDTUBE QDAY 03/10/16 08/11/16 Unknown History Insulin Regular, Human [HumuLIN R] 100 units SQ ACHS 03/10/16 08/11/16 Unknown History LORazepam [Ativan] 1 mg PO TID PRN 03/10/16 08/11/16 Unknown History Metoprolol Tartrate 100 mg PO BID 03/10/16 08/11/16 Unknown History amLODIPine [Norvasc] 10 mg FEEDTUBE QDAY 03/10/16 08/11/16 Unknown History hydrALAZINE [Apresoline TAB] 100 mg FEEDTUBE TID 03/10/16 08/11/16 Unknown History Insulin Aspart Prot/Aspart See Protocol SUB-Q ACHS 05/27/16 08/11/16 Unknown History [NovoLOG Mix 70/30 VIAL] Insulin Glargine [Lantus VIAL] 10 unit SUB-Q QHS 05/27/16 08/11/16 Unknown History Multivitamins Liq [Multiple 15 ml FEEDTUBE QDAY 05/27/16 08/11/16 Unknown History Vitamin Liq (Theragran)] Nut.tx.gluc.intoler,Lac-Fr,Soy 50 ml FEEDTUBE CONT 05/27/16 08/11/16 Unknown History [Glucerna 1.5 [place]] Lipase/Protease/Amylase [Pancreaze 1 each FEEDTUBE PRN PRN #1 capsule 05/31/16 08/11/[address] 10,500 Unit] Sennosides Tab [Senokot] 8.6 mg FEEDTUBE QDAY tablet 05/31/16 08/11/16 Unknown Rx Simple Syrup 15 ml FEEDTUBE PRN PRN #1 oral.liqd 05/31/16 08/11/16 Unknown Rx Simple Syrup 30 ml FEEDTUBE PRN PRN #1 oral.liqd 05/31/16 08/11/16 Unknown Rx Sodium Bicarbonate 325 mg FEEDTUBE PRN PRN #1 tablet 05/31/16 08/11/16 Unknown Rx Aspirin EC [Aspirin Enteric Coated 325 mg FEEDTUBE QDAY 08/11/16 08/11/16 Unknown History TAB] DAPTOmycin [Cubicin] 582.6 mg IV Q48H #3 vial 08/28/16 Unknown Rx Famotidine [Pepcid] 20 mg PO DAILY tablet 08/28/16 Unknown Rx Insulin Detemir [Levemir] 30 units SUB-Q QDDIAB units 08/28/16 Unknown Rx Ipratropium/Albuterol Sulfate 1 ampul IH TIDRT ampul.neb 08/28/16 Unknown Rx [Duoneb 0.5 mg-3 mg/3 ml Soln] Meropenem [Merrem] 1,000 mg IV Q24HR #5 vial 08/28/16 Unknown Rx Vancomycin 250 mg PO Q6HR 14 Days 08/28/16 Unknown Rx Active Meds: Active Medications Acetaminophen (Tylenol) 1,000 mg FEEDTUBE Q6H PRN PRN Reason: Pain, Mild (1-3) Last Admin: 08/11/16 16:56 Dose: 1,000 mg Albuterol/Ipratropium (Duoneb 0.5 Mg-3 Mg/3 Ml Soln) 1 ampul IH Q8HRT [facility] Last Admin: 08/12/16 09:43 Dose: 1 ampul Bisacodyl (Dulcolax) 10 mg MI QDAY PRN PRN Reason: Constipation unrelieved by MOM Heparin Sodium (Porcine) (Heparin) 5,000 unit SUB-Q Q12HR [facility] Last Admin: 08/12/16 09:41 Dose: 5,000 unit Piperacillin Sod/Tazobactam Sod (Zosyn/Ns 2.25 Gm/50ml) 50 mls @ 50 mls/30 min IV Q8H [facility] Last Admin: 08/12/16 06:30 Dose: 50 mls/30 min Sodium Chloride (Nacl 0.9% 500 Ml) 500 mls @ 0 mls/hr IV ONCE.ED NR PRN Reason: As Directed Stop: 08/12/16 19:10 Last Admin: 08/11/16 21:30 Dose: 1 mls/hr Norepinephrine (Levophed Drip 4 Mg/Ns 250 Ml) 250 mls @ 7.5 mls/hr IV TITR [facility] ; 2 MCG/MIN PRN Reason: Protocol Last Titration: 08/12/16 09:42 Dose: 2 mcg/min Insulin Aspart (Novolog) 0 units SUB-Q ACHS [facility] PRN Reason: Protocol Last Admin: 08/12/16 08:27 Dose: 4 units Levetiracetam (Keppra) 500 mg PO BID [facility] Last Admin: 08/12/16 09:41 Dose: 500 mg Magnesium Hydroxide (Milk Of Magnesia) 30 ml PO Q4H PRN PRN Reason: Constipation Morphine Sulfate (Morphine) 2 mg IV Q4H PRN PRN Reason: Pain, Moderate (4-6) Last Admin: 08/12/16 02:39 Dose: 2 mg Ondansetron HCl (Zofran) 4 mg IV Q8H PRN PRN Reason: N/V unrelieved by Regdiane Potassium Chloride (Potassium Chloride) 20 meq FEEDTUBE QDAY [facility] Last Admin: 08/12/16 09:41 Dose: 20 meq Exam - Vital Signs Vital signs: Vital Signs Pulse Resp BP Pulse Ox 114 H 28 H 174/116 96 08/11/16 15:39 08/11/16 15:39 08/11/16 15:39 08/11/16 15:39 - General Appearance General appearance: well-developed (appears to be stated age) EENT: mucous membranes moist Neck: Present: neck supple (no thyromegaly or nodule or mass) Respiratory: Clear to Ascultation (anteriorly a few faint crackles posteriorly) Heart: regular (S1-S2 normal) Gastrointestinal: Present: other (soft nontender abdomen) Integumentary: other (edema less than 1+) Neurologic: other (alert awake follows commands) Musculoskeletal: Present: other (no joint effusion noted) Results - Lab Results 08/27/16 06:09 08/27/16 06:09 Most recent lab results Calcium 8.2 mg/dL (8.4-10.2) L 08/12/16 05:30 Magnesium 2.2 mg/dL (1.7-2.3) 08/11/16 15:28
[2016-08-12] MEDS ORDERED: SIMPLE SYRUP FEEDTUBE PRN (11:16)
[2016-08-12] MEDS ORDERED: PANCREAZE DR 10,500 UNIT FEEDTUBE PRN (11:16)
[2016-08-12] MEDS ORDERED: HEPARIN 10,000 UNITS/10 ML IV ONE (12:09)
[2016-08-12 12:21] LABS: Reticulocyte % 2.01 % (0.78-2.58)
[2016-08-12 12:51] LABS: Iron 62 ug/dL (37-170); Total Iron Binding Capacity 101 mcg/dL (250-450)
--- NOTE | 2016-08-12 12:59 | Consultation ---
History of Present Illness Consult date: 08/12/16 Requesting physician: JANN APARICIO Reason for consult: other (Severe Sepsis) History of present illness: PULMONARY/CCM CONSULT NOTE (Full note dictated # [id number]) Please see dictated notes for full details Past History Past Medical History: anemia, COPD, diabetes, ESRD, heart failure, hypertension , seizures, other (dementia, chronic pain, mood disorder) Past Surgical History: Other (permacath in the left chest, toe surgery) Social history: no significant social history Family history: no significant family history Medications and Allergies Allergies Allergy/AdvReac Type Severity Reaction Status Date / Time Iodine and Iodide Containing Allergy Nausea Verified 05/29/15 12:33 Produc Home Medications Medication Instructions Recorded Confirmed Last Taken Type Bisacodyl [Dulcolax suppos] 10 mg SD QDAY PRN #30 supp.rect 12/14/15 08/11/16 Unknown Rx levETIRAcetam [Keppra TAB] 500 mg PO Q12H tablet 12/14/15 08/11/16 Unknown Rx Acetaminophen [Acetaminophen TAB] 650 mg FEEDTUBE Q6HR PRN 03/10/16 08/11/16 Unknown History Ascorbic Acid [Vitamin C] 500 mg FEEDTUBE BID 03/10/16 08/11/16 Unknown History Diphenhydramine HCl [Benadryl 25 mg FEEDTUBE Q6H PRN 03/10/16 08/11/16 Unknown History Allergy TAB] Duloxetine HCl [Cymbalta] 60 mg FEEDTUBE QDAY 03/10/16 08/11/16 Unknown History Hyoscyamine Sulfate [Hyoscyamine 0.125 mg PO Q4H PRN 03/10/16 08/11/16 Unknown History Rapdis 0.125 mg] Insulin Regular, Human [HumuLIN R] 100 units SQ ACHS 03/10/16 08/11/16 Unknown History LORazepam [Ativan] 1 mg PO TID PRN 03/10/16 08/11/16 Unknown History Metoprolol Tartrate 100 mg PO BID 03/10/16 08/11/16 Unknown History amLODIPine [Norvasc] 10 mg FEEDTUBE QDAY 03/10/16 08/11/16 Unknown History hydrALAZINE [Apresoline TAB] 100 mg FEEDTUBE TID 03/10/16 08/11/16 Unknown History Insulin Aspart Prot/Aspart See Protocol SUB-Q ACHS 05/27/16 08/11/16 Unknown History [NovoLOG Mix 70/30 VIAL] Insulin Glargine [Lantus VIAL] 10 unit SUB-Q QHS 05/27/16 08/11/16 Unknown History Multivitamins Liq [Multiple 15 ml FEEDTUBE QDAY 05/27/16 08/11/16 Unknown History Vitamin Liq (Theragran)] Nut.tx.gluc.intoler,Lac-Fr,Soy 50 ml FEEDTUBE CONT 05/27/16 08/11/16 Unknown History [Glucerna 1.5 [place]] oxyCODONE /ACETAMINOPHEN [Percocet 1 tab FEEDTUBE Q6H PRN 05/27/16 08/11/16 Unknown History 5/325 mg] HYDROcodone/APAP 5-325 [[place] 1 each FEEDTUBE Q12HR #10 05/31/16 08/11/16 Unknown Rx 5-325 mg TAB] Lipase/Protease/Amylase [Pancreaze 1 each FEEDTUBE PRN PRN #1 capsule 05/31/16 08/11/16 Unknown Rx 10,500 Unit] Sennosides Tab [Senokot] 8.6 mg FEEDTUBE QDAY tablet 05/31/16 08/11/16 Unknown Rx Simple Syrup 15 ml FEEDTUBE PRN PRN #1 oral.liqd 05/31/16 08/11/16 Unknown Rx Simple Syrup 30 ml FEEDTUBE PRN PRN #1 oral.liqd 05/31/16 08/11/16 Unknown Rx Sodium Bicarbonate 325 mg FEEDTUBE PRN PRN #1 tablet 05/31/16 08/11/16 Unknown Rx Aspirin EC [Aspirin Enteric Coated 325 mg FEEDTUBE QDAY 08/11/16 08/11/16 Unknown History TAB] Active Meds: Active Medications Acetaminophen (Tylenol) 1,000 mg FEEDTUBE Q6H PRN PRN Reason: Pain, Mild (1-3) Last Admin: 08/11/16 16:56 Dose: 1,000 mg Albuterol/Ipratropium (Duoneb 0.5 Mg-3 Mg/3 Ml Soln) 1 ampul IH Q8HRT [facility] Last Admin: 08/12/16 09:43 Dose: 1 ampul Lipase/Protease/Amylase (Pancreaze Dr 10,500 Unit) 1 each FEEDTUBE PRN PRN PRN Reason: For Clogged Feeding Tube Bisacodyl (Dulcolax) 10 mg SD QDAY PRN PRN Reason: Constipation unrelieved by MOM Heparin Sodium (Porcine) (Heparin) 5,000 unit SUB-Q Q12HR [facility] Last Admin: 08/12/16 09:41 Dose: 5,000 unit Piperacillin Sod/Tazobactam Sod (Zosyn/Ns 2.25 Gm/50ml) 50 mls @ 50 mls/30 min IV Q8H [facility] Last Admin: 08/12/16 06:30 Dose: 50 mls/30 min Sodium Chloride (Nacl 0.9% 500 Ml) 500 mls @ 0 mls/hr IV ONCE.ED NR PRN Reason: As Directed Stop: 08/12/16 19:10 Last Admin: 08/11/16 21:30 Dose: 1 mls/hr Norepinephrine (Levophed Drip 4 Mg/Ns 250 Ml) 250 mls @ 7.5 mls/hr IV TITR [facility] ; 2 MCG/MIN PRN Reason: Protocol Last Titration: 08/12/16 12:56 Dose: 4 mcg/min Insulin Aspart (Novolog) 0 units SUB-Q ACHS [facility] PRN Reason: Protocol Last Admin: 08/12/16 12:56 Dose: Not Given Levetiracetam (Keppra) 500 mg PO BID [facility] Last Admin: 08/12/16 09:41 Dose: 500 mg Magnesium Hydroxide (Milk Of Magnesia) 30 ml PO Q4H PRN PRN Reason: Constipation Morphine Sulfate (Morphine) 2 mg IV Q4H PRN PRN Reason: Pain, Moderate (4-6) Last Admin: 08/12/16 02:39 Dose: 2 mg Ondansetron HCl (Zofran) 4 mg IV Q8H PRN PRN Reason: N/V unrelieved by Reglan Potassium Chloride (Potassium Chloride) 20 meq FEEDTUBE QDAY [facility] Last Admin: 08/12/16 09:41 Dose: 20 meq Simple Syrup (Simple Syrup) 15 ml FEEDTUBE PRN PRN PRN Reason: Hypoglycemia Simple Syrup (Simple Syrup) 30 ml FEEDTUBE PRN PRN PRN Reason: Hypoglycemia Sodium Bicarbonate (Sodium Bicarbonate) 325 mg FEEDTUBE PRN PRN PRN Reason: For Clogged Feeding Tube Physical Examination Vital signs: Vital Signs Pulse Resp BP Pulse Ox 114 H 28 H 174/116 96 08/11/16 15:39 08/11/16 15:39 08/11/16 15:39 08/11/16 15:39 Results - Laboratory Findings CBC and BMP: 08/12/16 05:30 08/12/16 05:30 Abnormal lab findings: Abnormal Labs 08/11/16 08/11/16 08/12/16 19:45 23:01 02:35 WBC RBC Hgb Hct RDW Lymphocytes % (Manual) Monocytes % (Manual) Seg Neutrophils # Man Monocytes # (Manual) Eosinophils # (Manual) Sodium Potassium Chloride Carbon Dioxide BUN Creatinine Glucose POC Glucose 307 H Lactic Acid 3.5 H* Calcium TIBC Crossmatch See Detail 08/12/16 08/12/16 08/12/16 05:30 05:30 11:09 WBC 38.6 H RBC 3.14 L Hgb 8.7 L Hct 28.1 L D RDW 18.3 H Lymphocytes % (Manual) 9.0 L Monocytes % (Manual) 8.0 H Seg Neutrophils # Man 16.6 H Monocytes # (Manual) 3.1 H Eosinophils # (Manual) 1.2 H Sodium 133 L Potassium 3.0 L Chloride 92.4 L Carbon Dioxide 21 L BUN 44 H Creatinine 2.3 H Glucose 270 H POC Glucose 247 H Lactic Acid Calcium 8.2 L TIBC Crossmatch 08/12/16 12:16 WBC RBC Hgb Hct RDW Lymphocytes % (Manual) Monocytes % (Manual) Seg Neutrophils # Man Monocytes # (Manual) Eosinophils # (Manual) Sodium Potassium Chloride Carbon Dioxide BUN Creatinine Glucose POC Glucose Lactic Acid Calcium TIBC 101 L Crossmatch
[2016-08-12] MEDS ORDERED: HEPARIN ONE (13:01)
[2016-08-12] MEDS ORDERED: CEPHULAC PO PRN (14:52)
[2016-08-12] MEDS: HEPARIN IV PRN (14:56)
[2016-08-12] MEDS ORDERED: FLAGYL 500 MG/100 ML 100 ML IV SCH (15:00)
[2016-08-12 16:17] LABS: ISTAT Base Excess -4; ISTAT HCO3 20.2; ISTAT PCO2 29.4 (35-45); ISTAT PH 7.444 (7.35-7.45); ISTAT PO2 51 (80-105); ISTAT SO2 88; ISTAT TCO2 21
[2016-08-12] MEDS: PEPCID IV SCH (17:03)
--- NOTE | 2016-08-12 18:00 | Consultation ---
History of Present Illness - Reason for Consult Consult date: 08/12/16 sepsis Requesting physician: KEZIA LINCOLN - History of Present Illness This is a 65-year old woman with diabetes mellitus, ESRD on HD via a left chest wall tunnelled catheter, dementia and COPD. All information was obtained from the electronic medical records. Patient is demented and unable to provide information. [facility] after being found unresponsive. Patient apparently went to dialysis earlier in the day and seem to be in her usual state of health. However when she returned to the [facility] she was found unresponsive but did awake and was speaking when the EMS arrived. On arrival to the hospital her condition worsened with hypotension, tachycardia and minimal response. Patient was started on levophed for blood pressure support. She was found to have leukocytosis to 51.4, creatinine of 1.9 , and lactic acid of 6.7. Chest xray without infiltrates. She is not intubated but has a venti-mask in place. Blood cultures revealed gram positive cocci in pairs and gram negative rods. She received a dose of vancomycin and was started on zosyn. Past History Past Medical History: anemia, COPD, diabetes, ESRD, heart failure, hypertension , seizures, other (dementia, chronic pain, mood disorder) Past Surgical History: Other (permacath in the left chest, toe surgery) Social history: no significant social history Family history: no significant family history Medications and Allergies Allergies Allergy/AdvReac Type Severity Reaction Status Date / Time Iodine and Iodide Containing Allergy Nausea Verified 05/29/15 12:33 Produc Home Medications Medication Instructions Recorded Confirmed Last Taken Type Bisacodyl [Dulcolax suppos] 10 mg AL QDAY PRN #30 supp.rect 12/14/15 08/11/16 Unknown Rx levETIRAcetam [Keppra TAB] 500 mg PO Q12H tablet 12/14/15 08/11/16 Unknown Rx Acetaminophen [Acetaminophen TAB] 650 mg FEEDTUBE Q6HR PRN 03/10/16 08/11/16 Unknown History Ascorbic Acid [Vitamin C] 500 mg FEEDTUBE BID 03/10/16 08/11/16 Unknown History Diphenhydramine HCl [Benadryl 25 mg FEEDTUBE Q6H PRN 03/10/16 08/11/16 Unknown History Allergy TAB] Duloxetine HCl [Cymbalta] 60 mg FEEDTUBE QDAY 03/10/16 08/11/16 Unknown History Hyoscyamine Sulfate [Hyoscyamine 0.125 mg PO Q4H PRN 03/10/16 08/11/16 Unknown History Rapdis 0.125 mg] Insulin Regular, Human [HumuLIN R] 100 units SQ ACHS 03/10/16 08/11/16 Unknown History LORazepam [Ativan] 1 mg PO TID PRN 03/10/16 08/11/16 Unknown History Metoprolol Tartrate 100 mg PO BID 03/10/16 08/11/16 Unknown History amLODIPine [Norvasc] 10 mg FEEDTUBE QDAY 03/10/16 08/11/16 Unknown History hydrALAZINE [Apresoline TAB] 100 mg FEEDTUBE TID 03/10/16 08/11/16 Unknown History Insulin Aspart Prot/Aspart See Protocol SUB-Q ACHS 05/27/16 08/11/16 Unknown History [NovoLOG Mix 70/30 VIAL] Insulin Glargine [Lantus VIAL] 10 unit SUB-Q QHS 05/27/16 08/11/16 Unknown History Multivitamins Liq [Multiple 15 ml FEEDTUBE QDAY 05/27/16 08/11/16 Unknown History Vitamin Liq (Theragran)] Nut.tx.gluc.intoler,Lac-Fr,Soy 50 ml FEEDTUBE CONT 05/27/16 08/11/16 Unknown History [Glucerna 1.5 Eugene] oxyCODONE /ACETAMINOPHEN [Percocet 1 tab FEEDTUBE Q6H PRN 05/27/16 08/11/16 Unknown History 5/325 mg] HYDROcodone/APAP 5-325 [Henderson 1 each FEEDTUBE Q12HR #10 05/31/16 08/11/16 Unknown Rx 5-325 mg TAB] Lipase/Protease/Amylase [Pancreaze 1 each FEEDTUBE PRN PRN #1 capsule 05/31/16 08/11/[address] 10,500 Unit] Sennosides Tab [Senokot] 8.6 mg FEEDTUBE QDAY tablet 05/31/16 08/11/16 Unknown Rx Simple Syrup 15 ml FEEDTUBE PRN PRN #1 oral.liqd 05/31/16 08/11/16 Unknown Rx Simple Syrup 30 ml FEEDTUBE PRN PRN #1 oral.liqd 05/31/16 08/11/16 Unknown Rx Sodium Bicarbonate 325 mg FEEDTUBE PRN PRN #1 tablet 05/31/16 08/11/16 Unknown Rx Aspirin EC [Aspirin Enteric Coated 325 mg FEEDTUBE QDAY 08/11/16 08/11/16 Unknown History TAB] Active Meds: Active Medications Acetaminophen (Tylenol) 1,000 mg FEEDTUBE Q6H PRN PRN Reason: Pain, Mild (1-3) Last Admin: 08/11/16 16:56 Dose: 1,000 mg Albuterol/Ipratropium (Duoneb 0.5 Mg-3 Mg/3 Ml Soln) 1 ampul IH Q8HRT [facility] Last Admin: 08/12/16 09:43 Dose: 1 ampul Lipase/Protease/Amylase (Pancreaze Dr 10,500 Unit) 1 each FEEDTUBE PRN PRN PRN Reason: For Clogged Feeding Tube Bisacodyl (Dulcolax) 10 mg AL QDAY PRN PRN Reason: Constipation unrelieved by MOM Famotidine (Pepcid) 20 mg IV QDAY [facility] Last Admin: 08/12/16 17:03 Dose: 20 mg Heparin Sodium (Porcine) (Heparin) 5,000 unit SUB-Q Q12HR [facility] Last Admin: 08/12/16 09:41 Dose: 5,000 unit Heparin Sodium (Porcine) (Heparin) 5,000 unit IV BRIANNE PRN PRN Reason: perma cath flush Last Admin: 08/12/16 14:56 Dose: 5,000 unit Heparin Sodium (Porcine) (Heparin) 5,000 unit IV BRIANNE PRN PRN Reason: perma cath flush Piperacillin Sod/Tazobactam Sod (Zosyn/Ns 2.25 Gm/50ml) 50 mls @ 50 mls/30 min IV Q8H [facility] Last Admin: 08/12/16 17:06 Dose: 50 mls/30 min Sodium Chloride (Nacl 0.9% 500 Ml) 500 mls @ 0 mls/hr IV ONCE.ED NR PRN Reason: As Directed Stop: 08/12/16 19:10 Last Admin: 08/11/16 21:30 Dose: 1 mls/hr Norepinephrine (Levophed Drip 4 Mg/Ns 250 Ml) 250 mls @ 7.5 mls/hr IV TITR LUCITA ; 2 MCG/MIN PRN Reason: Protocol Last Titration: 08/12/16 16:31 Dose: 6 mcg/min Metronidazole (Flagyl 500 Mg/100 Ml) 100 mls @ 100 mls/hr IV Q8HR [facility] Last Admin: 08/12/16 17:03 Dose: 100 mls/hr Insulin Aspart (Novolog) 0 units SUB-Q ACHS LUCITA PRN Reason: Protocol Last Admin: 08/12/16 12:56 Dose: Not Given Lactulose (Cephulac) 20 gm PO Q6H PRN PRN Reason: Constipation Stop: 08/14/16 14:51 Levetiracetam (Keppra) 500 mg PO BID [facility] Last Admin: 08/12/16 09:41 Dose: 500 mg Magnesium Hydroxide (Milk Of Magnesia) 30 ml PO Q4H PRN PRN Reason: Constipation Morphine Sulfate (Morphine) 2 mg IV Q4H PRN PRN Reason: Pain, Moderate (4-6) Last Admin: 08/12/16 02:39 Dose: 2 mg Ondansetron HCl (Zofran) 4 mg IV Q8H PRN PRN Reason: N/V unrelieved by Regdiane Potassium Chloride (Potassium Chloride) 20 meq FEEDTUBE QDAY [facility] Last Admin: 08/12/16 09:41 Dose: 20 meq Simple Syrup (Simple Syrup) 15 ml FEEDTUBE PRN PRN PRN Reason: Hypoglycemia Simple Syrup (Simple Syrup) 30 ml FEEDTUBE PRN PRN PRN Reason: Hypoglycemia Sodium Bicarbonate (Sodium Bicarbonate) 325 mg FEEDTUBE PRN PRN PRN Reason: For Clogged Feeding Tube Review of Systems ROS unobtainable: due to mental status Physical Examination - Constitutional Vitals: Selected Entries 05/30/16 05/30/16 08/11/16 04:25 08:30 16:36 Temperature 98.2 F 100.0 F H Pulse Rate Pulse Rate [ 93 H Left] Pulse Rate [ 95 H Right Radial] Respiratory 20 Rate O2 Sat by Pulse 99 Oximetry Blood Pressure Blood Pressure 128/60 [Left Arm] Blood Pressure 142/65 [Right Arm] Blood Pressure Mean Blood Pressure 82 Mean [Left Arm] Blood Pressure 90 Mean [Right Arm ] 08/12/16 08/12/16 16:00 17:15 Temperature 97.8 F Pulse Rate 92 H Pulse Rate [ Left] Pulse Rate [ Right Radial] Respiratory 22 Rate O2 Sat by Pulse 99 Oximetry Blood Pressure 96/43 Blood Pressure [Left Arm] Blood Pressure [Right Arm] Blood Pressure 60 Mean Blood Pressure Mean [Left Arm] Blood Pressure Mean [Right Arm ] General appearance: Present: no acute distress, well-nourished - EENT Eyes: Present: EOM intact, miosis. Absent: scleral icterus, conjunctival injection, discharge ENT: hearing intact, edentulous - Neck Neck: Absent: enlarged thyroid, masses or JVD - Respiratory Respiratory effort: normal Respiratory: bilateral: CTA - Cardiovascular Rhythm: regular Heart Sounds: Present: S1 & S2 - Extremities Extremities: abnormal Extremity abnormal: edema, other (bilateral heel dark changes) - Abdominal General gastrointestinal: Present: soft, non-tender, normal bowel sounds, other (PEG in place) Female genitourinary: Present: deferred - Rectal Rectal Exam: other (rectal tube in place) - Integumentary Integumentary: Present: clear, warm, dry. Absent: jaundice, rash - Musculoskeletal Musculoskeletal: left sided weakness - Psychiatric Psychiatric: agitated - Additional findings Additional findings: sacrum wound stage2-3 mild erythema, bleeding Results - Labs CBC & Chem 7: 08/12/16 05:30 08/12/16 05:30 Labs: Microbiology 08/11/16 18:31 Peripheral/Venous Blood Culture - Preliminary 08/11/16 18:31 Peripheral/Venous Blood Culture - Preliminary Laboratory Tests 08/11/16 08/11/16 08/11/16 15:17 15:28 15:54 WBC 51.4 H* Plt Count D-Dimer Potassium Creatinine Lactic Acid Ferritin Ammonia 135.0 H Lactate Dehydrogenase Vitamin B12 Urine Ictotest Not Reportable Urine Urobilinogen < 2.0 Ur Leukocyte Esterase Mod Urine WBC (Auto) > 182.0 H 08/11/16 08/11/16 08/12/16 18:31 23:01 05:30 WBC 38.6 H Plt Count 292 D-Dimer Potassium Creatinine Lactic Acid 6.7 H* 3.5 H* Ferritin Ammonia Lactate Dehydrogenase Vitamin B12 Urine Ictotest Urine Urobilinogen Ur Leukocyte Esterase Urine WBC (Auto) 12/18/16 12/18/16 12/18/16 05:30 05:30 12:16 WBC Plt Count D-Dimer Potassium 3.0 L Creatinine 2.3 H Lactic Acid 2.0 Ferritin Ammonia Lactate Dehydrogenase 276 H Vitamin B12 Urine Ictotest Urine Urobilinogen Ur Leukocyte Esterase Urine WBC (Auto) 08/12/16 08/12/16 08/12/16 12:16 12:16 16:18 WBC Plt Count D-Dimer 5042.20 H Potassium Creatinine Lactic Acid Ferritin 2000.0 H Ammonia Lactate Dehydrogenase Vitamin B12 1117 H Urine Ictotest Urine Urobilinogen Ur Leukocyte Esterase Urine WBC (Auto) Assessment and Plan Antibiotics: 1)Vancomycin 1gm x1 (08/11 2) Zosyn 2.25gm iv Q8H (08/11 This is a 65 year old woman with diabetes mellitus, end stage renal disease, dementia, 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 She presented on 08/11/16 with acute mental status change after hemodialysis and found to have sepsis syndrome with marked leukocytosis to 51, lactic acidosis(6.7), and transaminitis. Patient is currently on blood pressure support. blood cultures with gram positive cocci in pairs and gram negative rods. 1) polymicrobial sepsis, gram negative and gram positive in blood. I am suspect that the left chest wall permacath is infected. The sacral wound is possible but it is not significantly deep. 2) leukocytosis, marked elevation in wbc to 51, sepsis can do this however Cdiff should be ruled out since she is from a [facility]dc and has watery diarrhea. 3) sacral wound, the wound is without purulent drainage, this could be the source but I do not see marked inflammation 4) Diarrhea in a patient from a fdc. Rule out cdiff 5) Permacath associate bloodstream infection, this catheter will need to be removed. 6) lactic acidosis, improving on current treatment Plan: 1) vancomycin 1gm given might not need to be redosed in view of blood culture gram stain 2) continue zosyn adjusted for renal failure 3) change metronidazole to per PEG until stool for cdiff is back, if stool cdiff negative can discontinue 4) repeat blood culture tomorrow 5) follow up blood culture 6) obtain wound care consult 7) follow up stool cdiff 8) follow up wound culture.
[2016-08-12] MEDS: LEVOPHED DRIP 4 MG/NS 250 ML 250 ML IV SCH ×2 (18:12→18:54)
[2016-08-12] MEDS: TYLENOL FEEDTUBE PRN (20:33)
[2016-08-12] MEDS: FLAGYL PO SCH (21:57)
[2016-08-13] MEDS: ZOSYN/NS 2.25 GM/50ML 50 ML IV SCH ×4 (00:34→23:19)
[2016-08-13] MEDS: LEVOPHED DRIP 4 MG/NS 250 ML 250 ML IV SCH ×5 (00:36→21:06)
--- NOTE | 2016-08-13 02:57 | Consultation ---
CONSULTING PHYSICIAN: Dr. Bass. REASON FOR CONSULTATION: Severe sepsis, septic shock. CHIEF COMPLAINT AND HISTORY OF PRESENT ILLNESS: The patient is a 65-year-old -[place] female, prison resident, with past medical history significant amongst other things for a cerebrovascular accident with left-sided deficits and altered mental status. Reportedly, she came back from the dialysis appointment on the day of presentation yesterday at about noon. She was in a normal state of health. A couple of hours later, she was found unresponsive in the prison. A code blue was called. Cardiopulmonary resuscitation was started. By the time, the EMS arrived in the Emergency Room, the patient was talking again. She reportedly had had a couple of episodes of nausea and vomiting in the preceding few days earlier and she complained only of pain in her legs and back. In the ER, she was mostly mumbling and nonresponsive. She was found to be hypotensive. She had a marked leukocytosis 56,000 on the white cell count and elevated lactic acid levels. She was started on vasopressors and admitted to the Intensive Care Unit. When I stopped by to see her in the Intensive Care Unit, she was on, I think, about 7 liters nasal cannula, O2 sats were about 93%. She was still lethargic. She remained on vasopressors. The patient is not a current tobacco abuser, remote history is unknown, and this is really as much of the history of presentation as I have. PAST MEDICAL HISTORY: Anemia, chronic obstructive lung disease, end-stage renal disease, on dialysis, history of congestive heart failure, history of seizures disorder, hypertension. She is obese. History of seizures. PAST SURGICAL HISTORY: She has a Perm-A-Cath on the left chest and she has had toe surgery done in the past. MEDICATIONS: She was on at the time I stopped by to see her, according to the medication administration record included the following: Tylenol 1 gram via feeding tube q. 6 hours p.r.n. mild pain, DuoNeb treatments nebulized q. 8 hours, Dulcolax p.r.n., heparin 5000 units subcutaneous q. 12, insulin via sliding scale, Keppra 500 mg p.o. b.i.d. Other medications include morphine 2 mg IV q. 4 hours p.r.n. She was on a Levophed drip at 4 mcg per minute, Zofran 4 mg IV q. 8 hours p.r.n., Zosyn 2.25 gram IV q. 8 hours, potassium chloride 20 mEq via feeding tube daily, sodium bicarbonate p.r.n. ALLERGIES: Iodine, nature of this allergy is unknown. DIET: Obese lady, acute weight loss or gain history is unknown. FAMILY AND SOCIAL HISTORY: Lives in the prison. No current alcohol, tobacco, or illicit drug use or abuse. Remote history is unknown. REVIEW OF SYSTEMS: Unobtainable secondary to the patient's medical and mental condition. Since she has been here, no gross hematochezia or melena. No hematemesis, no hemoptysis, no seizure activity. PHYSICAL EXAMINATION: VITAL SIGNS: At presentation, she was febrile, temperature 100.0 Fahrenheit with a pulse of 114, respiratory rate of 28, and blood pressure 174/116. Oxygen sats were 96%, inspired oxygen concentration was not recorded. HEENT: Pupils are equal, round, about 2-3 mm, reactive to light. Extraocular muscle movements could not be assessed. Grossly, no palpable lymph nodes in the supraclavicular or submandibular lymph node chains, appear to have some sore submandibular tenderness. LUNGS: Auscultation of both lung mcbride, bilateral rales, diminished bilateral air movement, no wheezing. HEART: Heart sounds 1 and 2 are heard, at the time of my evaluation, regular rate and rhythm. ABDOMEN: Soft, full, bowel sounds are positive, did not appear tender. EXTREMITIES: Without overt digital clubbing or cyanosis. She had dressings to what appeared to be bedsores on the heels of her midfoot and down the cox on the left. NEUROLOGIC: She was mostly lethargic. She had spontaneous movement to all extremities, but was just generally weak, hard to really find a focal deficit. LABORATORY DATA: From my review are as follows: White cell count 51,400, hemoglobin 6.8, hematocrit 21.3, platelets are 315. Serum sodium was 133, potassium 3.2, chloride 91, bicarbonate 19, BUN 31, creatinine 1.9, glucose was 180. Lactic acid level was 5.4, peaked at 6.7, down to 3.5, and actually now within normal limits, as of today. AST up at 258, ALT 201. Ammonia 135. CRP 37.7. TSH within normal limits. Urinalysis, moderate leukocyte esterase, greater than 182 white cells per high power field. Urine drug screen negative. Tylenol, aspirin, and alcohol level within normal limits. Radiographic studies have been reviewed. I have also reviewed the radiologist's interpretation. He describes a negative chest x-ray. I think there is evidence of hypoventilation, mild interstitial edema. There is a left subclavian, it looks like a vascath in place or Perm-A-Cath. Cardiovascular silhouette is borderline, perhaps a small left pleural effusion, no gross pneumothorax. I cannot rule out an occult pneumonia. ASSESSMENT AND PLAN: We have an elderly lady in with severe sepsis. I suspect an element of an aspiration pneumonia. We will need especially if there is diarrhea to rule out the Clostridium difficile. From a respiratory standpoint, we will go ahead and get a stat ABG. I think she will benefit from bilevel positive airway pressure ventilation therapy that will be scheduled at bedtime p.r.n. during the day. Aspiration precautions will be maintained. Bronchodilators will be continued. I will make q. 6h. order on the bronchodilators and aspiration precautions will be maintained. Depending on the arterial blood gas, further interventions might be necessary including systemic steroids. I am bothered about venous thromboembolic phenomenon as the cause of this decompensation. I will get a stat PT/INR and also get bilateral lower extremity Dopplers on her to rule out venous thromboembolic phenomenon, which is not currently being treated. She did come in anemic. She has received, I believe some blood, but we will see if she can tolerate anticoagulation if that is necessary. From a cardiovascular standpoint, we will wean off vasopressors to keep mean arterial blood pressures greater than or equal to about 60-65 mmHg. The lactic acid levels suggest adequate volume resuscitation. BUN and creatinine is really equivocal considering that she is on dialysis. We will follow her clinically. From an infectious disease standpoint, she is on Zosyn monotherapy, I am considering the addition of Flagyl empirically for C. diff, plus or minus a second gram-negative coverage agent, but I do note that Infectious Disease has been consulted, I will defer to them in terms of anti-infective choice. Anti-infectives will ultimately be deescalated based on results of clinical and microbiologic data. From a GI and nutritional standpoint, enteral nutrition will probably be the feeding modality of choice. It is unclear that she is safe to swallow at this point. She will be placed on GI prophylaxis, stool will be sent for C. diff assays. I should mention she may need a GI workup for the anemia that was noticed, and she may need a feeding tube for enteral nutrition. Aspiration precautions will be maintained. From a [employer] standpoint, no gross neuro focal deficits. She will continue on her Keppra. She will be followed clinically. No acute indication for neuro imaging. I feel that the sepsis explains her mental status at this point. From a renal standpoint, hemodialysis decisions will be per the school cafeteria cook and we will defer to them. Electrolytes will be followed and corrected as necessary. Inputs and outputs will be monitored, and she will be on treatment for the UTI for now. From a general and hospital healthcare maintenance standpoint, I should mention that she is going to be put on GI prophylaxis. DVT prophylaxis is mechanical at this point. Flu and pneumonia vaccination will be per protocol. Finally, I note the elevated ammonia levels and I will put her on scheduled lactulose in the short-term period and watch her mental status. Thank you very much for the consult Dr. Bass. We will follow along and make further recommendations as picture progresses/becomes clearer. At this point, I have spent about 35-40 minutes of critical care time without overlap and excluding any procedural time that may be necessary. She is critically ill, on life-sustaining interventions including vasopressor support, at higher risk for further deterioration including . JOB# [id number] MANISH/DENZEL
[2016-08-13] MEDS: FLAGYL PO SCH ×3 (06:05→21:05)
[2016-08-13 07:27] LABS: Hemoglobin 7.8 gm/dl (10.1-14.3); Mean Corpuscular HGB Conc 33 % (30-34); Mean Corpuscular Hemoglobin 29 pg (28-32); Mean Corpuscular Volume 87 fl (79-97); Platelet Count 292 K/mm3 (140-440); Red Blood Count 2.75 M/mm3 (3.65-5.03); Red Cell Distribution Width 18.4 % (13.2-15.2)
[2016-08-13 07:57] LABS: Calcium 8.2 mg/dL (8.4-10.2); Chloride 95.2 mmol/L (98-107); Potassium 3.4 mmol/L (3.6-5.0)
--- NOTE | 2016-08-13 08:08 | Vascular Lab Report ---
LOWER EXTREMITY VENOUS DUPLEX: REASON FOR EXAM: Swelling and hypoxemia. COMMENTS ON THE RIGHT: All veins visualized are freely compressible without evidence of internal echogenicity. Flow is spontaneous and phasic throughout. COMMENTS ON THE LEFT: All veins visualized are freely compressible without evidence of internal echogenicity. Flow is spontaneous and phasic throughout. IMPRESSION: No evidence of acute or chronic deep venous thrombosis in either lower extremity.
[2016-08-13] MEDS: NOVOLOG SUB-Q SCH ×4 (08:09→21:17)
[2016-08-13] MEDS: DUONEB 0.5 MG-3 MG/3 ML SOLN IH SCH ×2 (08:23→15:18)
[2016-08-13 08:38] LABS: Basophils % (Manual) 0 % (0.0-1.8); Blastocytes % (Manual) 0 %; Eosinophils % (Manual) 0 % (0.0-4.3)
[2016-08-13 08:39] LABS: Anisocytosis 1+; Hypochromasia Few
[2016-08-13 08:40] LABS: Diff Status Complete
[2016-08-13] MEDS: POTASSIUM CHLORIDE FEEDTUBE SCH (09:14)
[2016-08-13] MEDS: KEPPRA PO SCH ×2 (09:14→21:05)
[2016-08-13] MEDS: HEPARIN SUB-Q SCH ×2 (09:14→21:06)
[2016-08-13] MEDS: PEPCID IV SCH (09:14)
[2016-08-13] MEDS ORDERED: VASELINE LIP THERAPY TP PRN (09:25)
--- NOTE | 2016-08-13 09:47 | Progress Note ---
Assessment and Plan Impression: * ESRD * Sepsis * Gram neg Bacteremia * Sacral decubiti * DM type 2 * HTN * Anemia in ESRD Plan: * abx per ID * strict i/os * avoid nephrotoxins * with gram negative bactermia, will need new tunelled dialysis catheter * daily lytes * dailysis in am Subjective Date of service: 08/13/16 Principal diagnosis: esrd Interval history: resting well in bed today Objective - Exam Narrative Exam: General appearance: Present: no acute distress - EENT Eyes: Present: PERRL, EOM intact ENT: hearing intact, clear oral mucosa, dentition normal - Neck Neck: Present: supple, normal ROM - Respiratory Respiratory effort: normal Respiratory: bilateral: CTA - Cardiovascular Rhythm: regular Heart Sounds: Present: S1 & S2. Absent: gallop, rub - Extremities Extremities: no ischemia, No edema, Full ROM - Abdominal General gastrointestinal: soft, non-tender, non-distended, normal bowel sounds - Integumentary Integumentary: Present: clear, warm, dry - Neurologic Neurologic: CNII-XII intact, moves all extremities, other (confused) - Vital Signs Vital signs: Vital Signs - 12hr 08/12/16 08/12/16 08/12/16 22:00 22:15 22:30 Temperature Pulse Rate 89 85 84 Pulse Rate [ Anterior Bilateral Throughout] Respiratory 25 H 23 23 Rate Respiratory Rate [Anterior Bilateral Throughout] Respiratory Rate [sacrum] Blood Pressure 117/47 117/47 117/47 O2 Sat by Pulse 97 100 100 Oximetry 08/12/16 08/12/16 08/12/16 23:00 23:30 23:42 Temperature Pulse Rate 85 88 Pulse Rate [ 88 Anterior Bilateral Throughout] Respiratory 24 26 H Rate Respiratory 24 Rate [Anterior Bilateral Throughout] Respiratory Rate [sacrum] Blood Pressure 93/34 94/39 O2 Sat by Pulse 100 100 Oximetry 08/12/16 08/13/16 08/13/16 23:57 00:00 00:30 Temperature 99.5 F Pulse Rate 86 86 Pulse Rate [ 90 Anterior Bilateral Throughout] Respiratory 26 H 24 Rate Respiratory 24 Rate [Anterior Bilateral Throughout] Respiratory Rate [sacrum] Blood Pressure 94/39 96/36 O2 Sat by Pulse 100 100 Oximetry 08/13/16 08/13/16 08/13/16 01:00 01:30 02:00 Temperature Pulse Rate 83 86 89 Pulse Rate [ Anterior Bilateral Throughout] Respiratory 22 17 10 L Rate Respiratory Rate [Anterior Bilateral Throughout] Respiratory Rate [sacrum] Blood Pressure 109/47 92/38 87/40 O2 Sat by Pulse 100 100 100 Oximetry 08/13/16 08/13/16 08/13/16 02:18 02:30 03:00 Temperature Pulse Rate 83 82 84 Pulse Rate [ Anterior Bilateral Throughout] Respiratory 25 H 23 22 Rate Respiratory Rate [Anterior Bilateral Throughout] Respiratory Rate [sacrum] Blood Pressure 87/40 87/40 86/42 O2 Sat by Pulse 100 100 100 Oximetry 08/13/16 08/13/16 08/13/16 03:30 04:00 04:03 Temperature 0 F L Pulse Rate 85 80 89 Pulse Rate [ Anterior Bilateral Throughout] Respiratory 18 21 10 L Rate Respiratory Rate [Anterior Bilateral Throughout] Respiratory 20 Rate [sacrum] Blood Pressure 80/41 99/45 99/45 O2 Sat by Pulse 100 100 100 Oximetry 08/13/16 08/13/16 08/13/16 04:30 05:00 05:16 Temperature Pulse Rate 84 81 84 Pulse Rate [ Anterior Bilateral Throughout] Respiratory 19 17 22 Rate Respiratory Rate [Anterior Bilateral Throughout] Respiratory Rate [sacrum] Blood Pressure 104/45 104/45 90/35 O2 Sat by Pulse 100 100 100 Oximetry 08/13/16 08/13/16 08/13/16 05:30 06:00 06:30 Temperature Pulse Rate 81 84 83 Pulse Rate [ Anterior Bilateral Throughout] Respiratory 21 18 18 Rate Respiratory Rate [Anterior Bilateral Throughout] Respiratory Rate [sacrum] Blood Pressure 115/49 112/52 87/35 O2 Sat by Pulse 100 100 100 Oximetry 08/13/16 08/13/16 08/13/16 07:00 07:30 07:50 Temperature Pulse Rate 89 84 84 Pulse Rate [ Anterior Bilateral Throughout] Respiratory 18 21 19 Rate Respiratory Rate [Anterior Bilateral Throughout] Respiratory Rate [sacrum] Blood Pressure 108/49 108/49 103/44 O2 Sat by Pulse 100 100 100 Oximetry 08/13/16 08/13/16 08/13/16 07:54 08:21 08:23 Temperature 99.4 F Pulse Rate Pulse Rate [ 87 Anterior Bilateral Throughout] Respiratory Rate Respiratory 18 Rate [Anterior Bilateral Throughout] Respiratory Rate [sacrum] Blood Pressure O2 Sat by Pulse 100 100 Oximetry 08/13/16 08:33 Temperature Pulse Rate Pulse Rate [ 91 H Anterior Bilateral Throughout] Respiratory Rate Respiratory 16 Rate [Anterior Bilateral Throughout] Respiratory Rate [sacrum] Blood Pressure O2 Sat by Pulse Oximetry - Lab 08/13/16 Unknown 08/13/16 Unknown Most recent lab results Calcium 8.2 mg/dL (8.4-10.2) L 08/13/16 Unknown Magnesium 2.2 mg/dL (1.7-2.3) 08/11/16 15:28
--- NOTE | 2016-08-13 10:31 | Progress Note ---
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 Patient is currently on blood pressure support. Admitting blood cultures are growing blood cultures Gram positive cocci in pairs and Gram negative rods. Problem list: 1. Polymicrobial bacteremia and sepsis -08/11 blood cultures with 4/4 bottles with Gram negative rods and Gram positive cooci in pairs -Suspect that the left chest wall permacath is infected. 2. C. diff. infection -Toxin assay positive 08/13 3. Leukocytosis -Marked elevation to 51,000 -Multifactorial with bacteremia & C diff infection -Slightly improved today. 4. Presacral rash or sore -On infected at present 5. End-stage renal failure -Left chest PermCath 6. Status post right hemispheral stroke -Left hemiplegia 7. Lactic acidosis -Secondary to #1 -Improving on current treatment 8. Type 2 DM PLAN: 1. Will continue Zosyn and vancomycin pending further micro data. 2. Continue enteral Flagyl vs C diff 3. Local care 4. Glycemic control as per the primary team 5. Recommend removal of PermCath and culture of tip when feasible 6. C. difficile isolation precautions Arash Bennett MD [facility] Office: [phone] Subjective Date of service: 08/13/16 Principal diagnosis: Polymicrobial bacteremia and sepsis; C. difficile infection Interval history: Alert but confused. Complains of pain but not specifying where Objective - Exam Narrative Exam: GENERAL: Well-developed, chronically ill-appearing female who is alert and in no acute distress. HEENT: Pupils are equal reactive to light and accommodation. Conjunctiva clear. Bilateral arcus senilis. Oropharynx is normal with no evidence of oral candidiasis or pharyngitis. Patient is edentulous. NECK: Supple. No enlargement of the thyroid gland. No significant cervical lymphadenopathy. No jugular venous distention at 30. LUNGS: Clear with no adventitious sounds. CHEST: Left vas cath with no signs of infection. Not tender to palpation and no drainage visible. HEART: Regular rate. S1 and S2 are normal. There are no gallops, clicks or rubs heard. II/ JOSEPHINE heard best over the LUSB. No diastolic murmur. ABDOMEN: Soft and nontender. Liver and spleen are not palpably enlarged or tender. No palpable masses. Bowel sounds are normoactive. PEG site is clean with no signs of infection. : Normal external female. No Rico catheter. EXTREMITIES: No rash, peripheral lymphadenopathy, clubbing or edema. SKIN: Bilateral ill pressure sores R > L without signs of secondary infection. Stage II sacral pressure sore with no signs of infection but contaminated with liquid stool. NEUROLOGIC: Left hemiplegia. Alert. Oriented to person only. - Constitutional Vitals: Vital Signs Temp Pulse Resp BP Pulse Ox 99.4 F 95 H 12 103/60 87 08/13/16 07:54 08/13/16 10:00 08/13/16 10:00 08/13/16 10:00 08/13/16 10:00 Temperature -Last 24 Hours Temperature 99.4 F Temperature 0 F Temperature 99.5 F Temperature 100.3 F Temperature 97.8 F Temperature 97.8 F Temperature 98.9 F - Labs CBC & Chem 7: 08/13/16 Unknown 08/13/16 Unknown Labs: Abnormal lab results Microbiology 08/12/16 11:41 Peripheral/Venous Blood Culture - GPC in pairs 1/2 bottles 08/12/16 11:41 Vascular Cath Blood Culture - GPC in pairs 1/2 bottles 08/11/16 18:31 Peripheral/Venous Blood Culture - Gram Negative Chris & GPC in pairs 2/2 bottles 08/11/16 18:31 Peripheral/Venous Blood Culture - Preliminary Gram Negative Chris & GPC in pairs 2/2 bottles 08/12/16 16:55 Stool C. difficile DNA Amplification - Positive
--- NOTE | 2016-08-13 10:42 | Progress Note ---
Assessment and Plan Assessment and plan: 1. Septic shock. Polymicrobial sepsis, gram negative and gram positive in blood. Patient with a significant leukocytosis but improved. Patient currently on Levophed. Wean pressors to maintain MAP greater than 65. Continue IV antibiotics and follow-up blood cultures. ID following. Trend lactate levels. C. diff +. 2. Toxic metabolic encephalopathy. Continue treating underlying causes. 3. UTI. Follow-up urine culture and continue antibiotics. 4. Diabetes mellitus, type II. Continue Accu-Cheks and sliding scale regular insulin. 5. ESRD. Nephrology consultation pending. Continue hemodialysis per nephrology. 6. Seizure disorder. Continue Keppra IV. No new activity. Seizure precautions. 7. Acute on chronic anemia of chronic disease. Etiology is unknown. Check Hemoccult of stools, iron studies, B12, folate, reticulocyte count and LDH. Patient to receive 2 units PRBCs. Follow-up H&H. 8. C. difficile colitis. Continue Flagyl. The high probability of a clinically significant, sudden or life threatening deterioration of the [hemodynamic] system(s) required my full and direct attention, intervention and personal management. The aggregate critical care time was [31] minutes. This time is in addition to time spent performing reported procedures but includes the following: [x] Data Review and interpretation [x] Patient assessment and monitoring of vital signs [x] Documentation [x] Medication orders and management History Interval history: 65-year-old female who presented from residential with complaints of altered mentation. Patient was admitted with diagnosis of septic shock secondary to UTI and decubitus ulcers. Patient is somnolent, confused and currently remains on Levophed. Hospitalist Physical - Constitutional Vitals: Temp Pulse Resp BP Pulse Ox 99.4 F 95 H 12 103/60 87 08/13/16 07:54 08/13/16 10:00 08/13/16 10:00 08/13/16 10:00 08/13/16 10:00 General appearance: Present: no acute distress, well-nourished - EENT Eyes: Present: PERRL, EOM intact ENT: hearing intact, clear oral mucosa, dentition normal - Neck Neck: Present: supple, normal ROM - Respiratory Respiratory effort: normal Respiratory: bilateral: diminished - Cardiovascular Rhythm: regular Heart Sounds: Present: S1 & S2. Absent: gallop, rub - Extremities Extremities: no ischemia, No edema, Full ROM - Abdominal General gastrointestinal: soft, non-tender, non-distended, normal bowel sounds - Integumentary Integumentary: Present: clear, warm, dry - Neurologic Neurologic: CNII-XII intact, moves all extremities, other (confused) Results - Labs CBC & Chem 7: 08/13/16 Unknown 08/13/16 Unknown Labs: Laboratory Last Values WBC 30.0 K/mm3 (4.5-11.0) H 08/13/16 Unknown RBC 2.75 M/mm3 (3.65-5.03) L 08/13/16 Unknown Hgb 7.8 gm/dl (10.1-14.3) L 08/13/16 Unknown Hct 24.0 % (30.3-42.9) L 08/13/16 Unknown MCV 87 fl (79-97) D 08/13/16 Unknown MCH 29 pg (28-32) 08/13/16 Unknown MCHC 33 % (30-34) 08/13/16 Unknown RDW 18.4 % (13.2-15.2) H 08/13/16 Unknown Plt Count 292 K/mm3 (140-440) 08/13/16 Unknown Add Manual Diff Complete 08/13/16 Unknown Total Counted 100 08/13/16 Unknown Seg Neuts % (Manual) 75.0 % (40.0-70.0) H 08/13/16 Unknown Band Neutrophils % 16.0 % 08/13/16 Unknown Lymphocytes % (Manual) 7.0 % (13.4-35.0) L 08/13/16 Unknown Reactive Lymphs % (Man) 0 % 08/13/16 Unknown Monocytes % (Manual) 2.0 % (0.0-7.3) 08/13/16 Unknown Eosinophils % (Manual) 0 % (0.0-4.3) 08/13/16 Unknown Basophils % (Manual) 0 % (0.0-1.8) 08/13/16 Unknown Metamyelocytes % 0 % 08/13/16 Unknown Myelocytes % 0 % 08/13/16 Unknown Promyelocytes % 0 % 08/13/16 Unknown Blast Cells % 0 % 08/13/16 Unknown Nucleated RBC % Not Reportable 08/13/16 Unknown Seg Neutrophils # Man 22.5 K/mm3 (1.8-7.7) H 08/13/16 Unknown Band Neutrophils # 4.8 K/mm3 08/13/16 Unknown Lymphocytes # (Manual) 2.1 K/mm3 (1.2-5.4) 08/13/16 Unknown Abs React Lymphs (Man) 0.0 K/mm3 08/13/16 Unknown Monocytes # (Manual) 0.6 K/mm3 (0.0-0.8) 08/13/16 Unknown Eosinophils # (Manual) 0.0 K/mm3 (0.0-0.4) 08/13/16 Unknown Basophils # (Manual) 0.0 K/mm3 (0.0-0.1) 08/13/16 Unknown Metamyelocytes # 0.0 K/mm3 08/13/16 Unknown Myelocytes # 0.0 K/mm3 08/13/16 Unknown Promyelocytes # 0.0 K/mm3 08/13/16 Unknown Blast Cells # 0.0 K/mm3 08/13/16 Unknown WBC Morphology Not Reportable 08/13/16 Unknown Hypersegmented Neuts Not Reportable 08/13/16 Unknown Hyposegmented Neuts Not Reportable 08/13/16 Unknown Hypogranular Neuts Not Reportable 08/13/16 Unknown Smudge Cells Not Reportable 08/13/16 Unknown Toxic Granulation Not Reportable 08/13/16 Unknown Toxic Vacuolation Not Reportable 08/13/16 Unknown Dohle Bodies Not Reportable 08/13/16 Unknown Pelger-Huet Anomaly Not Reportable 08/13/16 Unknown Quynh Rods Not Reportable 08/13/16 Unknown Platelet Estimate Not Reportable 08/13/16 Unknown Clumped Platelets Not Reportable 08/13/16 Unknown Plt Clumps, EDTA Not Reportable 08/13/16 Unknown Large Platelets Not Reportable 08/13/16 Unknown Giant Platelets Not Reportable 08/13/16 Unknown Platelet Satelliting Not Reportable 08/13/16 Unknown Plt Morphology Comment Not Reportable 08/13/16 Unknown RBC Morphology Not Reportable 08/13/16 Unknown Dimorphic RBCs Not Reportable 08/13/16 Unknown Polychromasia Not Reportable 08/13/16 Unknown Hypochromasia Few 08/13/16 Unknown Poikilocytosis Not Reportable 08/13/16 Unknown Anisocytosis 1+ 08/13/16 Unknown Microcytosis Not Reportable 08/13/16 Unknown Macrocytosis Not Reportable 08/13/16 Unknown Spherocytes Not Reportable 08/13/16 Unknown Pappenheimer Bodies Not Reportable 08/13/16 Unknown Sickle Cells Not Reportable 08/13/16 Unknown Target Cells Not Reportable 08/13/16 Unknown Tear Drop Cells Not Reportable 08/13/16 Unknown Ovalocytes Not Reportable 08/13/16 Unknown Helmet Cells Not Reportable 08/13/16 Unknown [place] Bodies Not Reportable 08/13/16 Unknown Tyndall Rings Not Reportable 08/13/16 Unknown David Cells Not Reportable 08/13/16 Unknown Bite Cells Not Reportable 08/13/16 Unknown Crenated Cell Not Reportable 08/13/16 Unknown Elliptocytes Not Reportable 08/13/16 Unknown Acanthocytes (Spur) Not Reportable 08/13/16 Unknown Rouleaux Not Reportable 08/13/16 Unknown Hemoglobin C Crystals Not Reportable 08/13/16 Unknown Schistocytes Not Reportable 08/13/16 Unknown Malaria parasites Not Reportable 08/13/16 Unknown Percent Retic 2.01 % (0.78-2.58) 08/12/16 12:16 Vinny Bodies Not Reportable 08/13/16 Unknown Hem Pathologist Commnt No 08/13/16 Unknown D-Dimer 5042.20 ng/mlDDU (0-234) H 08/12/16 16:18 POC ABG pH 7.444 (7.35-7.45) 08/12/16 15:23 POC ABG pCO2 29.4 (35-45) L 08/12/16 15:23 POC ABG pO2 51 (80-105) L 08/12/16 15:23 POC ABG HCO3 20.2 08/12/16 15:23 POC ABG Total CO2 21 08/12/16 15:23 POC ABG O2 Sat 88 08/12/16 15:23 POC ABG Base Excess -4 08/12/16 15:23 FiO2 2 % 08/12/16 15:23 Sodium 133 mmol/L (137-145) L 08/13/16 Unknown Potassium 3.4 mmol/L (3.6-5.0) L 08/13/16 Unknown Chloride 95.2 mmol/L (98-107) L 08/13/16 Unknown Carbon Dioxide 18 mmol/L (22-30) L 08/13/16 Unknown Anion Gap 23 mmol/L 08/13/16 Unknown BUN 58 mg/dL (7-17) H 08/13/16 Unknown Creatinine 2.9 mg/dL (0.7-1.2) H 08/13/16 Unknown Estimated GFR 20 ml/min 08/13/16 Unknown BUN/Creatinine Ratio 20.00 % 08/13/16 Unknown Glucose 201 mg/dL (65-100) H 08/13/16 Unknown POC Glucose 199 (70-105) H 08/13/16 06:58 Lactic Acid 2.0 mmol/L (0.7-2.0) 08/12/16 05:30 Calcium 8.2 mg/dL (8.4-10.2) L 08/13/16 Unknown Magnesium 2.2 mg/dL (1.7-2.3) 08/11/16 15:28 Iron 62 ug/dL (37-170) 08/12/16 12:16 TIBC 101 mcg/dL (250-450) L 08/12/16 12:16 Ferritin 2000.0 ng/mL (13.0-400.0) H 08/12/16 12:16 Total Bilirubin 1.0 mg/dL (0.1-1.2) 08/11/16 15:28 AST 258 units/L (5-40) H 08/11/16 15:28 ALT 201 units/L (7-56) H 08/11/16 15:28 Alkaline Phosphatase 458 units/L (35-129) H 08/11/16 15:28 Ammonia 135.0 umol/L (25-60) H 08/11/16 15:54 Lactate Dehydrogenase 276 units/L (91-180) H 08/12/16 12:16 C-Reactive Protein 37.70 mg/dL (0.00-1.30) H 08/11/16 15:28 Total Protein 7.1 g/dL (6.3-8.2) 08/11/16 15:28 Albumin 2.3 g/dL (3.9-5) L 08/11/16 15:28 Albumin/Globulin Ratio 0.5 % 08/11/16 15:28 Vitamin B12 1117 pg/mL (211-911) H 08/12/16 12:16 Folate 18.10 ng/mL (7.3-26.0) 08/12/16 12:16 TSH 1.360 mlU/mL (0.270-4.200) 08/11/16 15:28 Urine Color [place]ort[place] (Yellow) 08/11/16 15:17 Urine Turbidity Turbid (Clear) 08/11/16 15:17 Urine pH 5.0 (5.0-7.0) 08/11/16 15:17 Ur Specific [place] 1.022 (1.003-1.030) 08/11/16 15:17 Urine Protein >500 mg/dL (Negative) 08/11/16 15:17 Urine Glucose (UA) Neg mg/dL (Negative) 08/11/16 15:17 Urine Ketones Tr mg/dL (Negative) 08/11/16 15:17 Urine Blood Sm (Negative) 08/11/16 15:17 Urine Nitrite Neg (Negative) 08/11/16 15:17 Ur Reducing Substances Not Reportable 08/11/16 15:17 Urine Bilirubin Neg (Negative) 08/11/16 15:17 Urine Ictotest Not Reportable 08/11/16 15:17 Urine Urobilinogen < 2.0 mg/dL (<2.0) 08/11/16 15:17 Ur Leukocyte Esterase Mod (Negative) 08/11/16 15:17 Urine WBC (Auto) > 182.0 /HPF (0.0-6.0) H 08/11/16 15:17 Urine RBC (Auto) 48.0 /HPF (0.0-6.0) 08/11/16 15:17 U Epithel Cells (Auto) 4.0 /HPF (0-13.0) 08/11/16 15:17 Urine Bacteria (Auto) 4+ /HPF (Negative) 08/11/16 15:17 Urine HCG, Qual Negative (Negative) 08/11/16 15:17 Random Vancomycin 10.4 ug/mL (0-40.0) 08/12/16 16:18 Salicylates < 0.3 mg/dL (2.8-20.0) L 08/11/16 15:28 Urine Opiates Screen Presumptive negative 08/11/16 15:17 Urine Methadone Screen Presumptive negative 08/11/16 15:17 Acetaminophen < 15.0 ug/mL (10.0-30.0) 08/11/16 15:28 Ur Barbiturates Screen Presumptive negative 08/11/16 15:17 Ur Phencyclidine Scrn Presumptive negative 08/11/16 15:17 Ur Amphetamines Screen Presumptive negative 08/11/16 15:17 U Benzodiazepines Scrn Presumptive negative 08/11/16 15:17 Urine Cocaine Screen Presumptive negative 08/11/16 15:17 U Marijuana (THC) Screen Presumptive negative 08/11/16 15:17 Drugs of Abuse Note Disclamer 08/11/16 15:17 Plasma/Serum Alcohol < 0.01 gm% (0-0.07) 08/11/16 15:28 Blood Type B POSITIVE 08/11/16 19:45 Antibody Screen Negative 08/11/16 19:45 Crossmatch See Detail 08/11/16 19:45
[2016-08-13] MEDS: TYLENOL FEEDTUBE PRN ×2 (11:26→23:28)
[2016-08-13] MEDS ORDERED: VANCOMYCIN PHARMACY TO DOSE IV SCH (12:00)
[2016-08-13] MEDS ORDERED: POTASSIUM CHLORIDE FEEDTUBE ONE (13:00)
[2016-08-13] MEDS ORDERED: VANCOMYCIN/NS 1 GM/250 ML 250 ML IV ONE (13:00)
--- NOTE | 2016-08-13 14:10 | Progress Note ---
Assessment and Plan Assessment and plan: 1. Septic shock. Poly microbial sepsis, gram negative and gram positive in blood. Patient with a significant leukocytosis but improved. Patient currently on Levophed. Wean vasopressor support to maintain MAP greater than 65. Continue IV antibiotics and follow-up blood cultures. ID following. Trend lactate levels. C. diff +. Place a tunnelled PICC line and discontinue the femoral CVC. If she continues to need vasopressor support, we may have to treat her with stress dose steroids for sepsis induced adrenal insufficiency. DVT prophylaxis Wound care to treat sacral decubitus ulcer, off loading and skin managemnt program to prevent further skin breakdown. 2. Toxic metabolic encephalopathy. Continue treating underlying causes. 3. UTI. Follow-up urine culture and continue antibiotics. 4. Diabetes mellitus, type II. Continue Accu-Cheks and sliding scale regular insulin. 5. ESRD. Nephrology consultation pending. Continue hemodialysis per nephrology. 6. Seizure disorder. Continue Keppra IV. No new activity. Seizure precautions. 7. Acute on chronic anemia of chronic disease. Etiology is unknown. Check Hemoccult of stools, iron studies, B12, folate, reticulocyte count and LDH. Patient to receive 2 units PRBCs. Follow-up H&H. 8. C. difficile colitis. Continue Flagyl. 9. Oropharyngeal dysphagia s/p PEG- Enteric feeding, glycemic control. Aspiration precautions. The high probability of a clinically significant, sudden or life threatening deterioration of the hemodynamic status required my full and direct attention, intervention and personal management. The aggregate critical care time was [32] minutes. This time is in addition to time spent performing reported procedures but includes the following: [x] Data Review and interpretation [x] Patient assessment and monitoring of vital signs [x] Documentation [x] Medication orders and management Subjective Date of service: 08/13/16 Principal diagnosis: Polymicrobial bacteremia and sepsis; C. difficile infection Interval history: Continues to require vasopressor support. Has a right femoral CVC. Moans and groans intermittently. No new overnight events reported or documented. patient was seen and examined. Vitals, labs, medications, chart were reviewed. patient was discussed during interdisciplinary rounds. Objective - Exam Narrative Exam: GENERAL: Well-developed, chronically ill-appearing female in no acute distress. HEENT: Pupils are equal reactive to light and accommodation. Conjunctiva clear. Bilateral arcus senilis. Oropharynx is normal with no evidence of oral candidiasis or pharyngitis. Patient is edentulous. NECK: Supple. No enlargement of the thyroid gland. No significant cervical lymphadenopathy. No jugular venous distention at 30. LUNGS: Clear with no adventitious sounds. CHEST: Left permacath with no signs of infection. Not tender to palpation and no drainage visible. HEART: Regular rate. S1 and S2 are normal. There are no gallops, clicks or rubs heard. II/ JOSEPHINE heard best over the LUSB. No diastolic murmur. ABDOMEN: Obese, Soft and nontender. Liver and spleen are not palpably enlarged or tender. No palpable masses. Bowel sounds are normoactive. PEG site is draining purullent material with a soaked dressing : Normal external female. No Rico catheter. EXTREMITIES: No rash, peripheral lymphadenopathy, clubbing or edema. Right groin CVC SKIN: Bilateral ill pressure sores R > L without signs of secondary infection. Stage II sacral pressure sore with no signs of infection but contaminated with liquid stool. NEUROLOGIC: Opens eyes on verbal stimuli but not obeying commands Vital Signs - 12hr 08/13/16 08/13/16 08/13/16 02:18 02:30 03:00 Temperature Pulse Rate 83 82 84 Pulse Rate [ Anterior Bilateral Throughout] Respiratory 25 H 23 22 Rate Respiratory Rate [Anterior Bilateral Throughout] Respiratory Rate [sacrum] Blood Pressure 87/40 87/40 86/42 O2 Sat by Pulse 100 100 100 Oximetry 08/13/16 08/13/16 08/13/16 03:30 04:00 04:03 Temperature 0 F L Pulse Rate 85 80 89 Pulse Rate [ Anterior Bilateral Throughout] Respiratory 18 21 10 L Rate Respiratory Rate [Anterior Bilateral Throughout] Respiratory 20 Rate [sacrum] Blood Pressure 80/41 99/45 99/45 O2 Sat by Pulse 100 100 100 Oximetry 08/13/16 08/13/16 08/13/16 04:30 05:00 05:16 Temperature Pulse Rate 84 81 84 Pulse Rate [ Anterior Bilateral Throughout] Respiratory 19 17 22 Rate Respiratory Rate [Anterior Bilateral Throughout] Respiratory Rate [sacrum] Blood Pressure 104/45 104/45 90/35 O2 Sat by Pulse 100 100 100 Oximetry 08/13/16 08/13/16 08/13/16 05:30 06:00 06:30 Temperature Pulse Rate 81 84 83 Pulse Rate [ Anterior Bilateral Throughout] Respiratory 21 18 18 Rate Respiratory Rate [Anterior Bilateral Throughout] Respiratory Rate [sacrum] Blood Pressure 115/49 112/52 87/35 O2 Sat by Pulse 100 100 100 Oximetry 08/13/16 08/13/16 08/13/16 07:00 07:30 07:50 Temperature Pulse Rate 89 84 84 Pulse Rate [ Anterior Bilateral Throughout] Respiratory 18 21 19 Rate Respiratory Rate [Anterior Bilateral Throughout] Respiratory Rate [sacrum] Blood Pressure 108/49 108/49 103/44 O2 Sat by Pulse 100 100 100 Oximetry 08/13/16 08/13/16 08/13/16 07:52 07:54 08:00 Temperature 99.4 F Pulse Rate 83 84 Pulse Rate [ Anterior Bilateral Throughout] Respiratory 18 18 Rate Respiratory Rate [Anterior Bilateral Throughout] Respiratory Rate [sacrum] Blood Pressure 103/44 96/39 O2 Sat by Pulse 100 100 98 Oximetry 08/13/16 08/13/16 08/13/16 08:21 08:23 08:30 Temperature Pulse Rate 90 Pulse Rate [ 87 Anterior Bilateral Throughout] Respiratory 17 Rate Respiratory 18 Rate [Anterior Bilateral Throughout] Respiratory Rate [sacrum] Blood Pressure 100/41 O2 Sat by Pulse 100 98 Oximetry 08/13/16 08/13/16 08/13/16 08:33 09:00 09:30 Temperature Pulse Rate 88 90 Pulse Rate [ 91 H Anterior Bilateral Throughout] Respiratory 19 21 Rate Respiratory 16 Rate [Anterior Bilateral Throughout] Respiratory Rate [sacrum] Blood Pressure 88/43 113/34 O2 Sat by Pulse 100 100 Oximetry 08/13/16 08/13/16 08/13/16 09:56 09:58 10:00 Temperature Pulse Rate 96 H 95 H 95 H Pulse Rate [ Anterior Bilateral Throughout] Respiratory 19 16 12 Rate Respiratory Rate [Anterior Bilateral Throughout] Respiratory Rate [sacrum] Blood Pressure 113/34 113/34 103/60 O2 Sat by Pulse 98 98 87 Oximetry 08/13/16 08/13/16 08/13/16 10:02 10:30 11:00 Temperature Pulse Rate 94 H 89 96 H Pulse Rate [ Anterior Bilateral Throughout] Respiratory 13 19 24 Rate Respiratory Rate [Anterior Bilateral Throughout] Respiratory Rate [sacrum] Blood Pressure 103/60 99/66 99/66 O2 Sat by Pulse 99 98 99 Oximetry 08/13/16 08/13/16 08/13/16 11:12 11:30 12:00 Temperature 97.7 F Pulse Rate 95 H 92 H 93 H Pulse Rate [ Anterior Bilateral Throughout] Respiratory 19 23 26 H Rate Respiratory Rate [Anterior Bilateral Throughout] Respiratory Rate [sacrum] Blood Pressure 111/40 114/50 113/45 O2 Sat by Pulse 98 97 96 Oximetry 08/13/16 12:30 Temperature Pulse Rate 88 Pulse Rate [ Anterior Bilateral Throughout] Respiratory 19 Rate Respiratory Rate [Anterior Bilateral Throughout] Respiratory Rate [sacrum] Blood Pressure 109/40 O2 Sat by Pulse 97 Oximetry CBC and BMP: 08/13/16 Unknown 08/13/16 Unknown ABG, PT/INR, D-dimer: ABG POC ABG pH 7.444 (7.35-7.45) 08/12/16 15:23 POC ABG pCO2 29.4 (35-45) L 08/12/16 15:23 POC ABG pO2 51 (80-105) L 08/12/16 15:23 POC ABG HCO3 20.2 08/12/16 15:23 POC ABG Total CO2 21 08/12/16 15:23 POC ABG O2 Sat 88 08/12/16 15:23 PT/INR, D-dimer D-Dimer 5042.20 ng/mlDDU (0-234) H 08/12/16 16:18 Abnormal lab findings: Abnormal Labs 08/11/16 08/11/16 08/12/16 19:45 23:01 02:35 WBC RBC Hgb Hct RDW Seg Neuts % (Manual) Lymphocytes % (Manual) Monocytes % (Manual) Seg Neutrophils # Man Monocytes # (Manual) Eosinophils # (Manual) D-Dimer POC ABG pCO2 POC ABG pO2 Sodium Potassium Chloride Carbon Dioxide BUN Creatinine Glucose POC Glucose 307 H Lactic Acid 3.5 H* Calcium TIBC Ferritin Lactate Dehydrogenase Vitamin B12 Crossmatch See Detail 08/12/16 08/12/16 08/12/16 05:30 05:30 11:09 WBC 38.6 H RBC 3.14 L Hgb 8.7 L Hct 28.1 L D RDW 18.3 H Seg Neuts % (Manual) Lymphocytes % (Manual) 9.0 L Monocytes % (Manual) 8.0 H Seg Neutrophils # Man 16.6 H Monocytes # (Manual) 3.1 H Eosinophils # (Manual) 1.2 H D-Dimer POC ABG pCO2 POC ABG pO2 Sodium 133 L Potassium 3.0 L Chloride 92.4 L Carbon Dioxide 21 L BUN 44 H Creatinine 2.3 H Glucose 270 H POC Glucose 247 H Lactic Acid Calcium 8.2 L TIBC Ferritin Lactate Dehydrogenase Vitamin B12 Crossmatch 08/12/16 08/12/16 08/12/16 12:16 12:16 12:16 WBC RBC Hgb Hct RDW Seg Neuts % (Manual) Lymphocytes % (Manual) Monocytes % (Manual) Seg Neutrophils # Man Monocytes # (Manual) Eosinophils # (Manual) D-Dimer POC ABG pCO2 POC ABG pO2 Sodium Potassium Chloride Carbon Dioxide BUN Creatinine Glucose POC Glucose Lactic Acid Calcium TIBC Ferritin 2000.0 H Lactate Dehydrogenase 276 H Vitamin B12 1117 H Crossmatch 08/12/16 08/12/16 08/12/16 12:16 15:23 16:18 WBC RBC Hgb Hct RDW Seg Neuts % (Manual) Lymphocytes % (Manual) Monocytes % (Manual) Seg Neutrophils # Man Monocytes # (Manual) Eosinophils # (Manual) D-Dimer 5042.20 H POC ABG pCO2 29.4 L POC ABG pO2 51 L Sodium Potassium Chloride Carbon Dioxide BUN Creatinine Glucose POC Glucose Lactic Acid Calcium TIBC 101 L Ferritin Lactate Dehydrogenase Vitamin B12 Crossmatch 08/12/16 08/12/16 08/13/16 17:45 23:36 06:58 WBC RBC Hgb Hct RDW Seg Neuts % (Manual) Lymphocytes % (Manual) Monocytes % (Manual) Seg Neutrophils # Man Monocytes # (Manual) Eosinophils # (Manual) D-Dimer POC ABG pCO2 POC ABG pO2 Sodium Potassium Chloride Carbon Dioxide BUN Creatinine Glucose POC Glucose 196 H 170 H 199 H Lactic Acid Calcium TIBC Ferritin Lactate Dehydrogenase Vitamin B12 Crossmatch 08/13/16 08/13/16 08/13/16 11:25 Unknown Unknown WBC 30.0 H RBC 2.75 L Hgb 7.8 L Hct 24.0 L RDW 18.4 H Seg Neuts % (Manual) 75.0 H Lymphocytes % (Manual) 7.0 L Monocytes % (Manual) Seg Neutrophils # Man 22.5 H Monocytes # (Manual) Eosinophils # (Manual) D-Dimer POC ABG pCO2 POC ABG pO2 Sodium 133 L Potassium 3.4 L Chloride 95.2 L Carbon Dioxide 18 L BUN 58 H Creatinine 2.9 H Glucose 201 H POC Glucose 267 H Lactic Acid Calcium 8.2 L TIBC Ferritin Lactate Dehydrogenase Vitamin B12 Crossmatch Allied health notes reviewed: nursing
[2016-08-13] MEDS: DILAUDID IV PRN ×2 (17:41→23:20)
[2016-08-14] MEDS: DUONEB 0.5 MG-3 MG/3 ML SOLN IH SCH ×4 (00:07→16:25)
[2016-08-14] MEDS: MORPHINE IV PRN (01:13)
[2016-08-14] MEDS: LEVOPHED DRIP 4 MG/NS 250 ML 250 ML IV SCH ×4 (02:02→21:00)
[2016-08-14] MEDS: ZOSYN/NS 2.25 GM/50ML 50 ML IV SCH (07:40)
[2016-08-14] MEDS: NOVOLOG SUB-Q SCH ×3 (07:44→17:12)
--- NOTE | 2016-08-14 08:27 | Progress Note ---
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 Patient is currently on blood pressure support. Admitting blood cultures are growing blood cultures Gram positive cocci in pairs and Gram negative rods. Problem list: 1. Polymicrobial bacteremia and sepsis -08/11 blood cultures with 4/4 bottles with Gram negative rods and Gram positive cooci in pairs -Suspect that the left chest wall permacath is infected, this will need to be removed for source control -- blood cultures with Enterococcus species and an ESBL Klebsiella --in view of the ESBL Klebsiella will switch to meropenem. Will continue the vancomycin until the Enterococcus sensitivity is back 2. C. diff. infection -Toxin assay positive 08/13 --on metronidazole via PEG, if wbc is not improving will consider changing to po vancomycin for possible epidemic strain 3. Leukocytosis -Marked elevation to 51,000 -Multifactorial with bacteremia & C diff infection -Slightly improved today. 4. Presacral rash or sore -no sign of active infection 5. End-stage renal failure -Left chest PermCath 6. Status post right hemispheral stroke -Left hemiplegia 7. Lactic acidosis -Secondary to #1 -Improving on current treatment PLAN: 1. discontinue Zosyn 2. start meropenem, to be doses by pharmacy, continue vancomycin pulse dosing for now until Enterococcus sensitivities are back 3. Continue enteral Flagyl for cdiff, if no improvement will reevaluate the need for vancomycin per PEG 4. Please removed left chest wall permacath, this is believed to be the source 5. continue contact isolation for ESBL Klebsiella and Cdiff Subjective Date of service: 08/14/16 Principal diagnosis: Polymicrobial bacteremia and sepsis; C. difficile infection Interval history: Patient remains on BIPAP and on one blood pressure support Objective - Constitutional Vitals: Selected Entries 08/13/16 08/14/16 08/14/16 23:47 04:00 07:00 Temperature 101.7 F H 97.2 F L Respiratory Rate [Anterior Bilateral Throughout] Blood Pressure 128/53 Blood Pressure 78 Mean 08/14/16 08:10 Temperature Respiratory 20 Rate [Anterior Bilateral Throughout] Blood Pressure Blood Pressure Mean General appearance: Present: no acute distress, well-nourished - EENT Eyes: EOM intact, no scleral icterus, no conjunctival injection ENT: hearing intact, other (BIPAP in place) Ears: bilateral: normal - Neck Neck: no enlarged thyroid, no masses or JVD - Respiratory Respiratory effort: other (BIPAP in place) - Breasts Breasts: deferred - Cardiovascular Rhythm: regular Heart Sounds: Present: S1 & S2 Extremities: abnormal Extremity abnormal: edema - Gastrointestinal General gastrointestinal: Present: soft, normal bowel sounds - Genitourinary Female genitourinary: deferred - Integumentary Integumentary: clear, warm, no jaundice, no rash - Neurologic Neurologic: moves all extremities - Psychiatric Psychiatric: agitated - Additional findings Additional findings: right groin central line, left chest wall permacath - Labs CBC & Chem 7: 08/13/16 Unknown 08/13/16 Unknown Labs: Microbiology 08/12/16 16:55 Stool C. difficile DNA Amplification - Final 08/11/16 18:31 Peripheral/Venous Blood Culture - Preliminary Klebsiella Pneumoniae Enterococcus Species 08/11/16 18:31 Peripheral/Venous Blood Culture - Preliminary Klebsiella Pneumoniae Enterococcus Species Laboratory Tests 08/11/16 08/13/16 08/13/16 15:17 Unknown Unknown WBC 30.0 H Plt Count 292 Creatinine 2.9 H Urine WBC (Auto) > 182.0 H
[2016-08-14 08:52] LABS: Hematocrit 25.9 % (30.3-42.9); Hemoglobin 8.2 gm/dl (10.1-14.3); Mean Corpuscular HGB Conc 32 % (30-34); Mean Corpuscular Hemoglobin 28 pg (28-32); Mean Corpuscular Volume 89 fl (79-97); Platelet Count 285 K/mm3 (140-440); Red Blood Count 2.92 M/mm3 (3.65-5.03); Red Cell Distribution Width 18.8 % (13.2-15.2)
[2016-08-14 08:57] LABS: White Blood Count 28.9 K/mm3 (4.5-11.0)
[2016-08-14 09:06] LABS: Calcium 8.3 mg/dL (8.4-10.2); Chloride 99.7 mmol/L (98-107); Potassium 3.9 mmol/L (3.6-5.0)
--- NOTE | 2016-08-14 09:48 | Progress Note ---
Assessment and Plan - Patient Problems (1) Altered mental status Current Visit: Yes Status: Acute (2) Septic shock Current Visit: Yes Status: Acute Subjective Date of service: 08/14/16 Principal diagnosis: Polymicrobial bacteremia and sepsis; C. difficile infection Objective - Constitutional Vitals: Vital Signs - 12hr 08/13/16 08/13/16 08/13/16 22:00 22:30 23:00 Temperature Pulse Rate 87 85 88 Pulse Rate [ Anterior Bilateral Throughout] Pulse Rate [ From Monitor] Pulse Rate [ Left Dorsalis Pedis] Pulse Rate [ Left Radial] Pulse Rate [ Right Dorsalis Pedis] Pulse Rate [ Right Radial] Respiratory 16 15 15 Rate Respiratory Rate [Anterior Bilateral Throughout] Blood Pressure 125/50 125/50 119/47 O2 Sat by Pulse 99 100 99 Oximetry 08/13/16 08/13/16 08/13/16 23:30 23:46 23:47 Temperature 101.7 F H Pulse Rate 88 86 Pulse Rate [ Anterior Bilateral Throughout] Pulse Rate [ From Monitor] Pulse Rate [ Left Dorsalis Pedis] Pulse Rate [ Left Radial] Pulse Rate [ Right Dorsalis Pedis] Pulse Rate [ Right Radial] Respiratory 13 14 Rate Respiratory Rate [Anterior Bilateral Throughout] Blood Pressure 119/47 95/33 O2 Sat by Pulse 100 100 Oximetry 08/13/16 08/13/16 08/14/16 23:56 23:58 00:00 Temperature Pulse Rate 87 87 87 Pulse Rate [ Anterior Bilateral Throughout] Pulse Rate [ From Monitor] Pulse Rate [ Left Dorsalis Pedis] Pulse Rate [ Left Radial] Pulse Rate [ Right Dorsalis Pedis] Pulse Rate [ Right Radial] Respiratory 16 17 17 Rate Respiratory Rate [Anterior Bilateral Throughout] Blood Pressure 115/29 115/29 115/46 O2 Sat by Pulse 100 100 99 Oximetry 08/14/16 08/14/16 08/14/16 00:05 00:12 00:17 Temperature Pulse Rate 88 Pulse Rate [ 88 88 Anterior Bilateral Throughout] Pulse Rate [ From Monitor] Pulse Rate [ Left Dorsalis Pedis] Pulse Rate [ Left Radial] Pulse Rate [ Right Dorsalis Pedis] Pulse Rate [ Right Radial] Respiratory 18 Rate Respiratory 15 17 Rate [Anterior Bilateral Throughout] Blood Pressure 115/46 O2 Sat by Pulse 100 Oximetry 08/14/16 08/14/16 08/14/16 00:20 00:30 01:00 Temperature Pulse Rate 88 88 88 Pulse Rate [ Anterior Bilateral Throughout] Pulse Rate [ From Monitor] Pulse Rate [ Left Dorsalis Pedis] Pulse Rate [ Left Radial] Pulse Rate [ Right Dorsalis Pedis] Pulse Rate [ Right Radial] Respiratory 16 19 19 Rate Respiratory Rate [Anterior Bilateral Throughout] Blood Pressure 115/46 115/29 113/41 O2 Sat by Pulse 100 100 100 Oximetry 08/14/16 08/14/16 08/14/16 01:13 01:30 02:00 Temperature Pulse Rate 81 82 Pulse Rate [ Anterior Bilateral Throughout] Pulse Rate [ From Monitor] Pulse Rate [ Left Dorsalis Pedis] Pulse Rate [ Left Radial] Pulse Rate [ Right Dorsalis Pedis] Pulse Rate [ Right Radial] Respiratory 22 17 18 Rate Respiratory Rate [Anterior Bilateral Throughout] Blood Pressure 118/34 111/44 O2 Sat by Pulse 100 100 Oximetry 08/14/16 08/14/16 08/14/16 02:30 03:00 03:30 Temperature Pulse Rate 80 80 79 Pulse Rate [ Anterior Bilateral Throughout] Pulse Rate [ From Monitor] Pulse Rate [ Left Dorsalis Pedis] Pulse Rate [ Left Radial] Pulse Rate [ Right Dorsalis Pedis] Pulse Rate [ Right Radial] Respiratory 16 15 14 Rate Respiratory Rate [Anterior Bilateral Throughout] Blood Pressure 104/44 113/55 122/48 O2 Sat by Pulse 100 100 100 Oximetry 08/14/16 08/14/16 08/14/16 03:55 04:00 04:03 Temperature 97.2 F L Pulse Rate 83 80 84 Pulse Rate [ Anterior Bilateral Throughout] Pulse Rate [ 61 From Monitor] Pulse Rate [ 61 Left Dorsalis Pedis] Pulse Rate [ 61 Left Radial] Pulse Rate [ 61 Right Dorsalis Pedis] Pulse Rate [ 61 Right Radial] Respiratory 15 16 16 Rate Respiratory Rate [Anterior Bilateral Throughout] Blood Pressure 122/48 122/48 120/45 O2 Sat by Pulse 100 100 100 Oximetry 08/14/16 08/14/16 08/14/16 04:30 05:00 05:30 Temperature Pulse Rate 80 82 81 Pulse Rate [ Anterior Bilateral Throughout] Pulse Rate [ From Monitor] Pulse Rate [ Left Dorsalis Pedis] Pulse Rate [ Left Radial] Pulse Rate [ Right Dorsalis Pedis] Pulse Rate [ Right Radial] Respiratory 18 17 18 Rate Respiratory Rate [Anterior Bilateral Throughout] Blood Pressure 126/54 126/54 116/47 O2 Sat by Pulse 99 100 100 Oximetry 08/14/16 08/14/16 08/14/16 06:00 06:30 07:00 Temperature Pulse Rate 81 83 88 Pulse Rate [ Anterior Bilateral Throughout] Pulse Rate [ From Monitor] Pulse Rate [ Left Dorsalis Pedis] Pulse Rate [ Left Radial] Pulse Rate [ Right Dorsalis Pedis] Pulse Rate [ Right Radial] Respiratory 17 15 25 H Rate Respiratory Rate [Anterior Bilateral Throughout] Blood Pressure 126/50 128/53 128/53 O2 Sat by Pulse 99 99 100 Oximetry 08/14/16 08/14/16 08/14/16 07:21 08:00 08:10 Temperature 98.2 F Pulse Rate Pulse Rate [ 83 Anterior Bilateral Throughout] Pulse Rate [ From Monitor] Pulse Rate [ Left Dorsalis Pedis] Pulse Rate [ Left Radial] Pulse Rate [ Right Dorsalis Pedis] Pulse Rate [ Right Radial] Respiratory Rate Respiratory 20 Rate [Anterior Bilateral Throughout] Blood Pressure O2 Sat by Pulse 100 Oximetry 08/14/16 08/14/16 08:23 08:44 Temperature Pulse Rate Pulse Rate [ 83 Anterior Bilateral Throughout] Pulse Rate [ From Monitor] Pulse Rate [ Left Dorsalis Pedis] Pulse Rate [ Left Radial] Pulse Rate [ Right Dorsalis Pedis] Pulse Rate [ Right Radial] Respiratory Rate Respiratory 20 Rate [Anterior Bilateral Throughout] Blood Pressure O2 Sat by Pulse 97 Oximetry General appearance: Present: no acute distress, well-nourished - EENT Eyes: PERRL, EOM intact ENT: hearing intact, clear oral mucosa Ears: bilateral: normal - Neck Neck: supple, normal ROM - Respiratory Respiratory effort: normal Respiratory: bilateral: CTA - Breasts Breasts: normal - Cardiovascular Rhythm: regular Heart Sounds: Present: S1 & S2. Absent: gallop, rub Extremities: pulses intact, No edema, normal color, Full ROM - Gastrointestinal General gastrointestinal: Present: soft, non-tender, non-distended, normal bowel sounds - Genitourinary Female genitourinary: normal - Integumentary Integumentary: clear, warm, dry - Musculoskeletal Musculoskeletal: 1, strength equal bilaterally - Neurologic Neurologic: moves all extremities - Psychiatric Psychiatric: memory intact, appropriate mood/affect, intact judgment & insight - Labs CBC & Chem 7: 08/14/16 08:26 08/14/16 08:26 Labs: Abnormal lab results 08/13/16 08/13/1608/13/16 Range/Units 11:25 16:29 21:10 WBC (4.5-11.0) K/mm3 RBC (3.65-5.03) M/mm3 Hgb (10.1-14.3) gm/dl Hct (30.3-42.9) % RDW (13.2-15.2) % Carbon Dioxide (22-30) mmol/L BUN (7-17) mg/dL Creatinine (0.7-1.2) mg/dL Glucose (65-100) mg/dL POC Glucose 267 H 277 H 203 H (70-105) Calcium (8.4-10.2) mg/dL 08/14/16 08/14/16 Range/Units 08:26 08:26 WBC 28.9 H (4.5-11.0) K/mm3 RBC 2.92 L (3.65-5.03) M/mm3 Hgb 8.2 L (10.1-14.3) gm/dl Hct 25.9 L (30.3-42.9) % RDW 18.8 H (13.2-15.2) % Carbon Dioxide 15 L (22-30) mmol/L BUN 77 H (7-17) mg/dL Creatinine 3.5 H (0.7-1.2) mg/dL Glucose 289 H (65-100) mg/dL POC Glucose (70-105) Calcium 8.3 L (8.4-10.2) mg/dL
[2016-08-14] MEDS: POTASSIUM CHLORIDE FEEDTUBE SCH (09:50)
[2016-08-14] MEDS: HEPARIN SUB-Q SCH (09:51)
[2016-08-14] MEDS: DILAUDID IV PRN ×2 (09:51→15:35)
[2016-08-14] MEDS: KEPPRA PO SCH (09:51)
[2016-08-14] MEDS: PEPCID PO SCH (09:52)
[2016-08-14] MEDS ORDERED: MERREM 1,000 MG in NACL 0.9% 100 ML IV SCH (10:00)
[2016-08-14 10:06] LABS: Basophils % (Manual) 0 % (0.0-1.8); Blastocytes % (Manual) 0 %; Eosinophils % (Manual) 0.5 % (0.0-4.3)
[2016-08-14 10:07] LABS: Anisocytosis 1+; Diff Status Complete; Hypochromasia Few; Large Platelets Few
[2016-08-14] MEDS ORDERED: NACL 0.9% 1000 ML 100 ML IV PRN (10:13)
--- NOTE | 2016-08-14 10:15 | Progress Note ---
Assessment and Plan Impression: * ESRD * Sepsis * Gram neg Bacteremia * Sacral decubiti * DM type 2 * HTN * Anemia in ESRD Plan: * abx per ID * strict i/os * avoid nephrotoxins * with gram negative bactermia, will need new tunelled dialysis catheter * daily lytes * dailysis TTHSAT Subjective Date of service: 08/14/16 Principal diagnosis: Polymicrobial bacteremia and sepsis; C. difficile infection Interval history: resting well in bed today Objective - Exam Narrative Exam: General appearance: Present: no acute distress - EENT Eyes: Present: PERRL, EOM intact ENT: hearing intact, clear oral mucosa, dentition normal - Neck Neck: Present: supple, normal ROM - Respiratory Respiratory effort: normal Respiratory: bilateral: CTA - Cardiovascular Rhythm: regular Heart Sounds: Present: S1 & S2. Absent: gallop, rub - Extremities Extremities: no ischemia, No edema, Full ROM - Abdominal General gastrointestinal: soft, non-tender, non-distended, normal bowel sounds - Integumentary Integumentary: Present: clear, warm, dry - Neurologic Neurologic: CNII-XII intact, moves all extremities, other (confused) - Vital Signs Vital signs: Vital Signs - 12hr 08/13/16 08/13/16 08/13/16 22:30 23:00 23:30 Temperature Pulse Rate 85 88 88 Pulse Rate [ Anterior Bilateral Throughout] Pulse Rate [ From Monitor] Pulse Rate [ Left Dorsalis Pedis] Pulse Rate [ Left Radial] Pulse Rate [ Right Dorsalis Pedis] Pulse Rate [ Right Radial] Respiratory 15 15 13 Rate Respiratory Rate [Anterior Bilateral Throughout] Blood Pressure 125/50 119/47 119/47 O2 Sat by Pulse 100 99 100 Oximetry 08/13/16 08/13/16 08/13/16 23:46 23:47 23:56 Temperature 101.7 F H Pulse Rate 86 87 Pulse Rate [ Anterior Bilateral Throughout] Pulse Rate [ From Monitor] Pulse Rate [ Left Dorsalis Pedis] Pulse Rate [ Left Radial] Pulse Rate [ Right Dorsalis Pedis] Pulse Rate [ Right Radial] Respiratory 14 16 Rate Respiratory Rate [Anterior Bilateral Throughout] Blood Pressure 95/33 115/29 O2 Sat by Pulse 100 100 Oximetry 08/13/16 08/14/16 08/14/16 23:58 00:00 00:05 Temperature Pulse Rate 87 87 Pulse Rate [ 88 Anterior Bilateral Throughout] Pulse Rate [ From Monitor] Pulse Rate [ Left Dorsalis Pedis] Pulse Rate [ Left Radial] Pulse Rate [ Right Dorsalis Pedis] Pulse Rate [ Right Radial] Respiratory 17 17 Rate Respiratory 15 Rate [Anterior Bilateral Throughout] Blood Pressure 115/29 115/46 O2 Sat by Pulse 100 99 Oximetry 08/14/16 08/14/16 08/14/16 00:12 00:17 00:20 Temperature Pulse Rate 88 88 Pulse Rate [ 88 Anterior Bilateral Throughout] Pulse Rate [ From Monitor] Pulse Rate [ Left Dorsalis Pedis] Pulse Rate [ Left Radial] Pulse Rate [ Right Dorsalis Pedis] Pulse Rate [ Right Radial] Respiratory 18 16 Rate Respiratory 17 Rate [Anterior Bilateral Throughout] Blood Pressure 115/46 115/46 O2 Sat by Pulse 100 100 Oximetry 08/14/16 08/14/16 08/14/16 00:30 01:00 01:13 Temperature Pulse Rate 88 88 Pulse Rate [ Anterior Bilateral Throughout] Pulse Rate [ From Monitor] Pulse Rate [ Left Dorsalis Pedis] Pulse Rate [ Left Radial] Pulse Rate [ Right Dorsalis Pedis] Pulse Rate [ Right Radial] Respiratory 19 19 22 Rate Respiratory Rate [Anterior Bilateral Throughout] Blood Pressure 115/29 113/41 O2 Sat by Pulse 100 100 Oximetry 08/14/16 08/14/16 08/14/16 01:30 02:00 02:30 Temperature Pulse Rate 81 82 80 Pulse Rate [ Anterior Bilateral Throughout] Pulse Rate [ From Monitor] Pulse Rate [ Left Dorsalis Pedis] Pulse Rate [ Left Radial] Pulse Rate [ Right Dorsalis Pedis] Pulse Rate [ Right Radial] Respiratory 17 18 16 Rate Respiratory Rate [Anterior Bilateral Throughout] Blood Pressure 118/34 111/44 104/44 O2 Sat by Pulse 100 100 100 Oximetry 08/14/16 08/14/16 08/14/16 03:00 03:30 03:55 Temperature Pulse Rate 80 79 83 Pulse Rate [ Anterior Bilateral Throughout] Pulse Rate [ From Monitor] Pulse Rate [ Left Dorsalis Pedis] Pulse Rate [ Left Radial] Pulse Rate [ Right Dorsalis Pedis] Pulse Rate [ Right Radial] Respiratory 15 14 15 Rate Respiratory Rate [Anterior Bilateral Throughout] Blood Pressure 113/55 122/48 122/48 O2 Sat by Pulse 100 100 100 Oximetry 08/14/16 08/14/16 08/14/16 04:00 04:03 04:30 Temperature 97.2 F L Pulse Rate 80 84 80 Pulse Rate [ Anterior Bilateral Throughout] Pulse Rate [ 61 From Monitor] Pulse Rate [ 61 Left Dorsalis Pedis] Pulse Rate [ 61 Left Radial] Pulse Rate [ 61 Right Dorsalis Pedis] Pulse Rate [ 61 Right Radial] Respiratory 16 16 18 Rate Respiratory Rate [Anterior Bilateral Throughout] Blood Pressure 122/48 120/45 126/54 O2 Sat by Pulse 100 100 99 Oximetry 08/14/16 08/14/16 08/14/16 05:00 05:30 06:00 Temperature Pulse Rate 82 81 81 Pulse Rate [ Anterior Bilateral Throughout] Pulse Rate [ From Monitor] Pulse Rate [ Left Dorsalis Pedis] Pulse Rate [ Left Radial] Pulse Rate [ Right Dorsalis Pedis] Pulse Rate [ Right Radial] Respiratory 17 18 17 Rate Respiratory Rate [Anterior Bilateral Throughout] Blood Pressure 126/54 116/47 126/50 O2 Sat by Pulse 100 100 99 Oximetry 08/14/16 08/14/16 08/14/16 06:30 07:00 07:18 Temperature Pulse Rate 83 88 82 Pulse Rate [ Anterior Bilateral Throughout] Pulse Rate [ From Monitor] Pulse Rate [ Left Dorsalis Pedis] Pulse Rate [ Left Radial] Pulse Rate [ Right Dorsalis Pedis] Pulse Rate [ Right Radial] Respiratory 15 25 H 18 Rate Respiratory Rate [Anterior Bilateral Throughout] Blood Pressure 128/53 128/53 135/57 O2 Sat by Pulse 99 100 100 Oximetry 08/14/16 08/14/16 08/14/16 07:21 07:30 08:00 Temperature 98.2 F Pulse Rate 84 82 Pulse Rate [ Anterior Bilateral Throughout] Pulse Rate [ From Monitor] Pulse Rate [ Left Dorsalis Pedis] Pulse Rate [ Left Radial] Pulse Rate [ Right Dorsalis Pedis] Pulse Rate [ Right Radial] Respiratory 17 19 Rate Respiratory Rate [Anterior Bilateral Throughout] Blood Pressure 140/59 140/59 O2 Sat by Pulse 100 100 100 Oximetry 08/14/16 08/14/16 08/14/16 08:10 08:23 08:30 Temperature Pulse Rate 83 Pulse Rate [ 83 83 Anterior Bilateral Throughout] Pulse Rate [ From Monitor] Pulse Rate [ Left Dorsalis Pedis] Pulse Rate [ Left Radial] Pulse Rate [ Right Dorsalis Pedis] Pulse Rate [ Right Radial] Respiratory 19 Rate Respiratory 20 20 Rate [Anterior Bilateral Throughout] Blood Pressure 111/49 O2 Sat by Pulse 100 Oximetry 08/14/16 08/14/16 08/14/16 08:44 09:00 09:30 Temperature Pulse Rate 83 88 Pulse Rate [ Anterior Bilateral Throughout] Pulse Rate [ From Monitor] Pulse Rate [ Left Dorsalis Pedis] Pulse Rate [ Left Radial] Pulse Rate [ Right Dorsalis Pedis] Pulse Rate [ Right Radial] Respiratory 19 20 Rate Respiratory Rate [Anterior Bilateral Throughout] Blood Pressure 122/44 108/48 O2 Sat by Pulse 97 100 98 Oximetry 08/14/16 08/14/16 09:58 10:00 Temperature Pulse Rate 84 85 Pulse Rate [ Anterior Bilateral Throughout] Pulse Rate [ From Monitor] Pulse Rate [ Left Dorsalis Pedis] Pulse Rate [ Left Radial] Pulse Rate [ Right Dorsalis Pedis] Pulse Rate [ Right Radial] Respiratory 16 14 Rate Respiratory Rate [Anterior Bilateral Throughout] Blood Pressure 109/46 109/46 O2 Sat by Pulse 97 98 Oximetry - Lab 08/14/16 08:26 08/14/16 08:26 Most recent lab results Calcium 8.3 mg/dL (8.4-10.2) L 08/14/16 08:26 Magnesium 2.2 mg/dL (1.7-2.3) 08/11/16 15:28
--- NOTE | 2016-08-14 11:00 | Admit Criteria Form ---
Admission Criteria Documentation: SEVERE SEPSIS Clinical Indications for Admission to Inpatient Care (Place 'X' for any and all applicable criteria): Hospital admission is needed for appropriate care of the patient because of ANY ONE of the following: [X]I. Hemodynamic instability indicated by ANY ONE of the following(1)(2)(3)( 4)(5): []a. Vital sign abnormality not readily corrected by appropriate treatment within 12 to 24 hours indicated by ANY ONE of the following: []i) Tachycardia that persists despite appropriate treatment []ii) Hypotension that persists despite appropriate treatment []iii) Orthostatic vital sign changes that persist despite appropriate treatment [X]b. Vital sign abnormality that is severe indicated by ANY ONE of the following: [X]i. Inadequate perfusion indicated by ANY ONE of the following: [X]1) Lactic acidosis (greater than 2 mmol/L) []2) New abnormal capillary refill (greater than 3 seconds) []3) Reduced urine output [X]4) New altered mental status []5) Myocardial Ischemia []ii. Mean arterial pressure [A] less than 60 mm Hg []iii. Mean arterial pressure[A] less than 70 mm Hg after 30 minutes of appropriate treatment (eg, fluid resuscitation) []iv. Sustained heart rate greater than 120 beats per minute in adult []v. IV inotropic or vasopressor medication required to maintain adequate blood pressure or perfusion [X]II. Systemic or infectious condition causing severe symptoms or findings not responsive to emergency or observation care treatment (as appropriate) indicated by ANY ONE of the following: []a. Cardiac arrhythmias of immediate concern(1)(2)(3) []b. Severe endocrine disorder (eg, thyrotoxicosis, adrenal insufficiency)(4)(5) []c. Seizures (eg, new or recurrent)(6) [X]d. New-onset end organ failure or dysfunction as indicated by ANY ONE of the following: [X]i. Acute unexplained hypoxemia (eg, not from lung infection or chronic disease)(7)(8)(9) []ii. Acute renal failure as indicated by new onset of ANY ONE of the following(10)(11)(12)(13)(14): []1) 3-fold rise in serum creatinine from baseline []2) Serum creatinine greater than 4 mg/dL (354 micromoles/L) with acute rise greater than 0.5 mg/dL (44.2 micromoles/L) []3) Reduction of more than 75% in estimated glomerular filtration rate from baseline. []4) Estimated glomerular filtration rate less than 35 mL/min/1.73m2 ( 0.59 mL/sec/1.73m2) in child younger than 18 years. []5) Cessation of urine output indicated by ALL of the following: []A. Adequate volume status []B. Inadequate urine output as indicated by ANY ONE of the following: []a. Urine output less than 0.3 mL/kg/hr for 24 hours []b. Anuria (urine output less than 0.1 mL/kg/hr) for 12 hours [X]iii. Acute mental status changes(15) []iv. Acute hepatic failure (eg, plasma bilirubin greater than 4 mg/ dL (68 micromoles/L), new INR greater than 2.0)(16)(17) []e. Unmanageable nausea and vomiting(18) []f. New-onset or uncontrolled central diabetes insipidus(19)(20) []g. Clinically significant dehydration(18)(21) []h. Hypoglycemia(22) []i. Acidosis (pH less than 7.35) or alkalosis (pH greater than 7.45)( 22)(23) []j. Toxic drug level that indicates need for specific monitoring or treatment(24)(25) [X]k. Severe electrolyte abnormalities indicated by ALL of the following (1)(2)(3): [X]i. Electrolytes and associated findings are not as expected for patient baseline or acceptable treatment effects. [X]ii. Severe abnormalities indicated by ANY ONE of the following: []1) Sodium less than 130 mEq/L (mmol/L) (new) [X]2) Sodium less than 135 mEq/L (mmol/L) with ANY ONE of the following : []A. Uncorrectable (to near normal or chronic baseline) after trial of outpatient and emergency treatment [X]B. Altered mental status []C. Seizures []D. Severe medical etiology requiring inpatient management (eg , heart failure, hypovolemia) []3) Sodium greater than 155 mEq/L (mmol/L) []4) Sodium greater than 150 mEq/L (mmol/L) with ANY ONE of the following: []A. Uncorrectable (to near normal or chronic baseline) with outpatient and emergency treatment []B. Altered mental status []C. Seizures []D. Severe medical etiology (eg, hypovolemia, diabetes insipidus) []5) Potassium less than 2.5 mEq/L (mmol/L) despite outpatient and emergency treatment []6) Potassium less than 3 mEq/L (mmol/L) with ANY ONE of the following : []A. Weakness []B. Cardiac abnormality (eg, arrhythmia, conduction disturbance ) []C. Cardiac ischemia []D. Ileus []E. Ongoing medical cause requiring inpatient management (eg, acute renal wasting or SIADH) []F. Other severe symptoms []7) Potassium greater than 6.5 mEq/L (mmol/L) []8) Potassium greater than 5 mEq/L (mmol/L) with ANY ONE of the following: []A. Uncorrectable (to near normal or chronic baseline) with outpatient and emergency treatment []B. Severe ECG findings[A] []C. Acute worsening of renal failure (creatinine greater than 2.5 mg/dL (221 micromoles/L) or significant elevation for age and size) []D. Severe weakness []E. Severe medical etiology (eg, hemolysis, infection, drug overdose) []9) Calcium less than 7 mg/dL (1.75 mmol/L) despite outpatient and emergency treatment(5) []10) Calcium less than 8 mg/dL (2 mmol/L) with significant symptoms or findings (eg, altered mental status, muscle spasms, seizures, breathing difficulty, cardiac abnormality (eg, arrhythmia or conduction disturbance))(5) []11) Calcium greater than 14 mg/dL (3.5 mmol/L)(5) []12) Calcium greater than 12 mg/dL (3 mmol/L) with ANY ONE of the following(5): []A. Uncorrectable (to near normal or chronic baseline) with outpatient and emergency treatment []B. Significant dehydration or hypovolemia as indicated by ALL of the following(3)(6)(7): []a. Not resolved with initial treatments []b. Clinically significant dehydration as indicated by ANY ONE of the following: [](1) Vomiting refractory to outpatient treatment (ie, precluding oral rehydration) [](2) Inability to drink [](3) Hypernatremia or other electrolyte abnormality unable to be corrected with outpatient and emergency treatment [](4) Failure to remain hydrated with outpatient therapy [](5) Reduced urine output [](6) Hypotension [](7) Serious cause for dehydration requiring acute hospitalization ( eg, bowel obstruction, increased intracranial pressure, infectious cause) [](8) Child with ANY ONE of the following(8): [](i) Severe abdominal tenderness [](ii) Adequate care not available at home [](iii) Severe dehydration (greater than 9% loss of body weight) []C. Significant symptoms or findings (eg, altered mental status , cardiac abnormality (eg, arrhythmia, conduction disturbance), malignant etiology requiring inpatient treatment) []13) Phosphorus less than 1 mg/dL (0.32 mmol/L) []14) Phosphorus less than 1.5 mg/dL (0.48 mmol/L) with ANY ONE of the following: []A. Patient unresponsive to outpatient and emergency treatment []B. Significant symptoms or findings (eg, weakness, altered mental status, breathing difficulty, seizures, rhabdomyolysis) []15) Phosphorus greater than 10 mg/dL (3.2 mmol/L) []16) Phosphorus greater than 4.5 mg/dL (1.45 mmol/L) (new) with ANY ONE of the following: []A. Severe medical etiology (eg, crush injury, acute renal failure) []B. Associated hypocalcemia with significant findings (eg, neurologic symptoms, altered mental status, muscle spasms, seizures, breathing difficulty, cardiac abnormality (eg, arrhythmia, conduction disturbance)) []16) Magnesium less than 1 mg/dL (0.41 mmol/L) []17) Magnesium less than 1.5 mg/dL (0.62 mmol/L) with ANY ONE of the following: []A. Patient unresponsive to outpatient and emergency treatment []B. Associated hypocalcemia with significant findings (eg, altered mental status, muscle spasms, seizures, breathing difficulty, cardiac abnormality (eg, arrhythmia, conduction disturbance)) []C. Associated hypokalemia (potassium less than 3 mEq/L (mmol/L )) with risk of arrhythmia []18) Magnesium greater than 4 mEq/L (2 mmol/L) []19) Magnesium greater than 2.5 mEq/L (1.25 mmol/L) with significant symptoms or findings (eg, weakness, altered mental status, cardiac abnormality (eg, arrhythmia, conduction disturbance), breathing difficulty, severe medical etiology (eg, renal failure, hypovolemia)) []20) Uric acid greater than 20 mg/dL (1190 micromoles/L)(9) []21) Uric acid greater than 8 mg/dL (476 micromoles/L) with significant symptoms or findings of tumor lysis syndrome (eg, creatinine greater than 1.5 times upper limit of normal, cardiac abnormality (eg , arrhythmia, conduction disturbance), seizure)(9) [X]III. High fever or other high-risk infection situation as indicated by ANY ONE of the following(26)(27)(28): [X]a. Outpatient and observation care antimicrobial treatment unavailable, not effective, or not appropriate [X]b. Documented bacteremia []c. Temperature greater than 104.9 degrees F (40.5 degrees C) (oral) []d. Temperature greater than 103.1 degrees F (39.5 degrees C) (oral) or less than 96.8 degrees F (36 degrees C) (rectal) that does not respond to emergency treatment and observation care []IV. High-risk febrile neutropenia[A] as indicated by ANY ONE of the following(29)(30)(31)(32): []a. Profound neutropenia[B] anticipated to extend for more than 7 days []b. Hemodynamic instability []c. Hypoxemia []d. Tachypnea []e. Altered mental status []f. New-onset abdominal pain []g. New-onset vomiting or diarrhea []h. Oral or gastrointestinal mucositis that interferes with swallowing or causes severe diarrhea []i. Focal infection (eg, cellulitis, pneumonia, central line or catheter infection, perirectal abscess) []j. Renal insufficiency (eg, GFR of less than 30 mL/min/1.73m2 (0.5 mL/sec /1.73m2)). []k. Severe liver dysfunction (transaminase levels greater than 5 times normal) []l. Platelet count less than 50,000/mm3 (50 x109/L)(33) []m. Leukemia or lymphoma induction therapy []n. Leukemia not in complete remission or with evidence of disease progression []o. Bone marrow transplant patient []p. Alemtuzumab being used for therapy []q. [employer] Supportive Care in Cancer (MASCC) Risk Index score of less than 21[C](33)(35). []V. Isolation required (eg, tuberculosis that requires isolation, Ebola infection)[D](36)(37)(38)(39)(40) []. Gangrene that requires treatment beyond emergency or observation level care(41)(42) []VII. Antitoxin administration and ongoing observation required (eg, tetanus, botulism)(43)(44) []. Suspected infection with rapid progression or severe symptoms as indicated by ANY ONE of the following(45): []a. Streptococcal or staphylococcal toxic shock(46) []b. Diphtheria(47) []c. Hantavirus(48) []d. Severe acute respiratory syndrome(8)(49) []e. Anthrax(50) []f. Ebola[D](36)(37)(38) []g. Necrotizing soft tissue infection(41)(42) []h. Plague(50) []i. Other suspected infection that requires care beyond emergency or observation level care []VII. Severe adverse drug or systemic toxin reaction as indicated by ANY ONE of the following(24): []a. Serotonin syndrome(51)(52) []b. Neuroleptic malignant syndrome(51)(52) []c. Cholinergic syndrome with severe symptoms (eg, bronchorrhea, weakness , mental status changes, seizures)(53) []d. Anticholinergic syndrome []e. Sympathetic syndrome with severe symptoms (eg, seizures, mental status changes, cardiac dysrhythmias) []f. Other severe adverse drug or systemic toxin reaction that remains after emergency or observation level care (as appropriate) []VIII. Allergic reaction with severe symptoms (not responsive to emergency or observation care treatment as appropriate), including ANY ONE of the following(54): []a. Airway edema (pharyngeal, epiglottic, or laryngeal edema) []b. Stridor []c. Respiratory failure []d. Bronchospasm []e. Hypotension []IX. Environmental emergency (not responsive to emergency or observation care treatment as appropriate) as indicated by ANY ONE of the following(55)(56): []a. Hyperthermia []b. Heat stroke []c. Heat exhaustion []d. Hypothermia (temperature less than 95 degrees F (35 degrees C) rectal) (57) []e. Electrocution(58) []X. Complications of transplanted organ (ie, not covered elsewhere)[E] indicated by ANY ONE of the following(59): []a. Acute graft rejection (or graft vs. host disease)[F] requiring inpatient management (eg, intravenous immunosuppression)(60)(61)(62)( 63) []b. Acute failure of transplanted organ necessitating inpatient care (eg, cannot be managed in other setting) []c. Infection requiring inpatient management (eg, Hemodynamic instability, need for intravenous antimicrobial treatment)(64)(65) []d. Other complication of transplanted organ requiring inpatient management []XI. Systemic or Infectious Condition condition, symptom, or finding for which emergency and observation care have failed or are not considered appropriate. See General Criteria: Observation Care, General Admission Criteria or Pediatric General Admission Criteria guideline as appropriate. (Contents from SEVERE SEPSIS and SYSTEMIC OR INFECTIOUS CONDITION clinical indications for admission to inpatient care have been integrated in this form) The original [facility] has been revised. The portions of the content which have been revised are identified through the use of italic text or in bold and [facility] has neither reviewed nor approved the modified material. All other unmodified content is copyright [facility]. Please see references footnoted in the original [facility] edition 2016 Admission Criteria Met: Yes
--- NOTE | 2016-08-14 11:08 | Progress Note ---
Assessment and Plan 1. Septic shock. - Wean vasopressor support to maintain MAP greater than 65. - Continue IV antibiotics ID following. - Trend lactate levels. - Will likely need change of the Permacath, follow up blood cultures to document clearance and replacement of HD catheter. - consider stress steroids - wound care per WCT 2. Toxic metabolic encephalopathy. - Continue treating underlying causes. 3. UTI. - Follow-up urine culture and continue antibiotics. 4. Diabetes mellitus, type II. - Continue Accu-Cheks and sliding scale regular insulin. 5. ESRD. Nephrology consultation pending. - Continue hemodialysis per nephrology. 6. Seizure disorder. - Continue Keppra IV. No new activity. - Seizure precautions. 9. Oropharyngeal dysphagia - s/p PEG- Enteric feeding, glycemic control. Aspiration precautions. Subjective Date of service: 08/14/16 Principal diagnosis: Polymicrobial bacteremia and sepsis; C. difficile infection Interval history: Seen and examined at bedside; 24 hour events reviewed; nursing and respiratory care staff consulted; no adverse overnight events reported to me; remains on vasopressors; tiolerating BIPAP as needed; no emesis or overt aspiration Objective Vital Signs - 12hr 08/13/16 08/13/16 08/13/16 23:30 23:46 23:47 Temperature 101.7 F H Pulse Rate 88 86 Pulse Rate [ Anterior Bilateral Throughout] Pulse Rate [ From Monitor] Pulse Rate [ Left Dorsalis Pedis] Pulse Rate [ Left Radial] Pulse Rate [ Right Dorsalis Pedis] Pulse Rate [ Right Radial] Respiratory 13 14 Rate Respiratory Rate [Anterior Bilateral Throughout] Blood Pressure 119/47 95/33 O2 Sat by Pulse 100 100 Oximetry 08/13/16 08/13/16 08/14/16 23:56 23:58 00:00 Temperature Pulse Rate 87 87 87 Pulse Rate [ Anterior Bilateral Throughout] Pulse Rate [ From Monitor] Pulse Rate [ Left Dorsalis Pedis] Pulse Rate [ Left Radial] Pulse Rate [ Right Dorsalis Pedis] Pulse Rate [ Right Radial] Respiratory 16 17 17 Rate Respiratory Rate [Anterior Bilateral Throughout] Blood Pressure 115/29 115/29 115/46 O2 Sat by Pulse 100 100 99 Oximetry 08/14/16 08/14/16 08/14/16 00:05 00:12 00:17 Temperature Pulse Rate 88 Pulse Rate [ 88 88 Anterior Bilateral Throughout] Pulse Rate [ From Monitor] Pulse Rate [ Left Dorsalis Pedis] Pulse Rate [ Left Radial] Pulse Rate [ Right Dorsalis Pedis] Pulse Rate [ Right Radial] Respiratory 18 Rate Respiratory 15 17 Rate [Anterior Bilateral Throughout] Blood Pressure 115/46 O2 Sat by Pulse 100 Oximetry 08/14/16 08/14/16 08/14/16 00:20 00:30 01:00 Temperature Pulse Rate 88 88 88 Pulse Rate [ Anterior Bilateral Throughout] Pulse Rate [ From Monitor] Pulse Rate [ Left Dorsalis Pedis] Pulse Rate [ Left Radial] Pulse Rate [ Right Dorsalis Pedis] Pulse Rate [ Right Radial] Respiratory 16 19 19 Rate Respiratory Rate [Anterior Bilateral Throughout] Blood Pressure 115/46 115/29 113/41 O2 Sat by Pulse 100 100 100 Oximetry 08/14/16 08/14/16 08/14/16 01:13 01:30 02:00 Temperature Pulse Rate 81 82 Pulse Rate [ Anterior Bilateral Throughout] Pulse Rate [ From Monitor] Pulse Rate [ Left Dorsalis Pedis] Pulse Rate [ Left Radial] Pulse Rate [ Right Dorsalis Pedis] Pulse Rate [ Right Radial] Respiratory 22 17 18 Rate Respiratory Rate [Anterior Bilateral Throughout] Blood Pressure 118/34 111/44 O2 Sat by Pulse 100 100 Oximetry 08/14/16 08/14/16 08/14/16 02:30 03:00 03:30 Temperature Pulse Rate 80 80 79 Pulse Rate [ Anterior Bilateral Throughout] Pulse Rate [ From Monitor] Pulse Rate [ Left Dorsalis Pedis] Pulse Rate [ Left Radial] Pulse Rate [ Right Dorsalis Pedis] Pulse Rate [ Right Radial] Respiratory 16 15 14 Rate Respiratory Rate [Anterior Bilateral Throughout] Blood Pressure 104/44 113/55 122/48 O2 Sat by Pulse 100 100 100 Oximetry 08/14/16 08/14/16 08/14/16 03:55 04:00 04:03 Temperature 97.2 F L Pulse Rate 83 80 84 Pulse Rate [ Anterior Bilateral Throughout] Pulse Rate [ 61 From Monitor] Pulse Rate [ 61 Left Dorsalis Pedis] Pulse Rate [ 61 Left Radial] Pulse Rate [ 61 Right Dorsalis Pedis] Pulse Rate [ 61 Right Radial] Respiratory 15 16 16 Rate Respiratory Rate [Anterior Bilateral Throughout] Blood Pressure 122/48 122/48 120/45 O2 Sat by Pulse 100 100 100 Oximetry 08/14/16 08/14/16 08/14/16 04:30 05:00 05:30 Temperature Pulse Rate 80 82 81 Pulse Rate [ Anterior Bilateral Throughout] Pulse Rate [ From Monitor] Pulse Rate [ Left Dorsalis Pedis] Pulse Rate [ Left Radial] Pulse Rate [ Right Dorsalis Pedis] Pulse Rate [ Right Radial] Respiratory 18 17 18 Rate Respiratory Rate [Anterior Bilateral Throughout] Blood Pressure 126/54 126/54 116/47 O2 Sat by Pulse 99 100 100 Oximetry 08/14/16 08/14/16 08/14/16 06:00 06:30 07:00 Temperature Pulse Rate 81 83 88 Pulse Rate [ Anterior Bilateral Throughout] Pulse Rate [ From Monitor] Pulse Rate [ Left Dorsalis Pedis] Pulse Rate [ Left Radial] Pulse Rate [ Right Dorsalis Pedis] Pulse Rate [ Right Radial] Respiratory 17 15 25 H Rate Respiratory Rate [Anterior Bilateral Throughout] Blood Pressure 126/50 128/53 128/53 O2 Sat by Pulse 99 99 100 Oximetry 08/14/16 08/14/16 08/14/16 07:18 07:21 07:30 Temperature Pulse Rate 82 84 Pulse Rate [ Anterior Bilateral Throughout] Pulse Rate [ From Monitor] Pulse Rate [ Left Dorsalis Pedis] Pulse Rate [ Left Radial] Pulse Rate [ Right Dorsalis Pedis] Pulse Rate [ Right Radial] Respiratory 18 17 Rate Respiratory Rate [Anterior Bilateral Throughout] Blood Pressure 135/57 140/59 O2 Sat by Pulse 100 100 100 Oximetry 08/14/16 08/14/16 08/14/16 08:00 08:10 08:23 Temperature 98.2 F Pulse Rate 82 Pulse Rate [ 83 83 Anterior Bilateral Throughout] Pulse Rate [ From Monitor] Pulse Rate [ Left Dorsalis Pedis] Pulse Rate [ Left Radial] Pulse Rate [ Right Dorsalis Pedis] Pulse Rate [ Right Radial] Respiratory 19 Rate Respiratory 20 20 Rate [Anterior Bilateral Throughout] Blood Pressure 140/59 O2 Sat by Pulse 100 Oximetry 08/14/16 08/14/16 08/14/16 08:30 08:44 09:00 Temperature Pulse Rate 83 83 Pulse Rate [ Anterior Bilateral Throughout] Pulse Rate [ From Monitor] Pulse Rate [ Left Dorsalis Pedis] Pulse Rate [ Left Radial] Pulse Rate [ Right Dorsalis Pedis] Pulse Rate [ Right Radial] Respiratory 19 19 Rate Respiratory Rate [Anterior Bilateral Throughout] Blood Pressure 111/49 122/44 O2 Sat by Pulse 100 97 100 Oximetry 08/14/16 08/14/16 08/14/16 09:30 09:58 10:00 Temperature Pulse Rate 88 84 85 Pulse Rate [ Anterior Bilateral Throughout] Pulse Rate [ From Monitor] Pulse Rate [ Left Dorsalis Pedis] Pulse Rate [ Left Radial] Pulse Rate [ Right Dorsalis Pedis] Pulse Rate [ Right Radial] Respiratory 20 16 14 Rate Respiratory Rate [Anterior Bilateral Throughout] Blood Pressure 108/48 109/46 109/46 O2 Sat by Pulse 98 97 98 Oximetry Constitutional: no acute distress, lethargic Eyes: non-icteric ENT: oropharynx moist Neck: supple Effort: mildly labored Ascultation: Bilateral: diminished breath sounds, rhonchi Cardiovascular: regular rate and rhythm Gastrointestinal: normoactive bowel sounds, soft, non-tender, non-distended Integumentary: normal Extremities: no cyanosis, no ischemia or petechiae, other (dressings to feet) Neurologic: non-focal exam (grossly), pupils equal and round Psychiatric: other (unable to assess) CBC and BMP: 08/21/16 Unknown 08/21/16 04:00 ABG, PT/INR, D-dimer: ABG POC ABG pH 7.444 (7.35-7.45) 08/12/16 15:23 POC ABG pCO2 29.4 (35-45) L 08/12/16 15:23 POC ABG pO2 51 (80-105) L 08/12/16 15:23 POC ABG HCO3 20.2 08/12/16 15:23 POC ABG Total CO2 21 08/12/16 15:23 POC ABG O2 Sat 88 08/12/16 15:23 PT/INR, D-dimer D-Dimer 5042.20 ng/mlDDU (0-234) H 08/12/16 16:18 Abnormal lab findings: Abnormal Labs 08/11/16 08/11/16 08/12/16 19:45 23:01 02:35 WBC RBC Hgb Hct RDW Seg Neuts % (Manual) Lymphocytes % (Manual) Monocytes % (Manual) Seg Neutrophils # Man Monocytes # (Manual) Eosinophils # (Manual) D-Dimer POC ABG pCO2 POC ABG pO2 Sodium Potassium Chloride Carbon Dioxide BUN Creatinine Glucose POC Glucose 307 H Lactic Acid 3.5 H* Calcium TIBC Ferritin Lactate Dehydrogenase Vitamin B12 Crossmatch See Detail 08/12/16 08/12/16 08/12/16 05:30 05:30 11:09 WBC 38.6 H RBC 3.14 L Hgb 8.7 L Hct 28.1 L D RDW 18.3 H Seg Neuts % (Manual) Lymphocytes % (Manual) 9.0 L Monocytes % (Manual) 8.0 H Seg Neutrophils # Man 16.6 H Monocytes # (Manual) 3.1 H Eosinophils # (Manual) 1.2 H D-Dimer POC ABG pCO2 POC ABG pO2 Sodium 133 L Potassium 3.0 L Chloride 92.4 L Carbon Dioxide 21 L BUN 44 H Creatinine 2.3 H Glucose 270 H POC Glucose 247 H Lactic Acid Calcium 8.2 L TIBC Ferritin Lactate Dehydrogenase Vitamin B12 Crossmatch 08/12/16 08/12/16 08/12/16 12:16 12:16 12:16 WBC RBC Hgb Hct RDW Seg Neuts % (Manual) Lymphocytes % (Manual) Monocytes % (Manual) Seg Neutrophils # Man Monocytes # (Manual) Eosinophils # (Manual) D-Dimer POC ABG pCO2 POC ABG pO2 Sodium Potassium Chloride Carbon Dioxide BUN Creatinine Glucose POC Glucose Lactic Acid Calcium TIBC Ferritin 2000.0 H Lactate Dehydrogenase 276 H Vitamin B12 1117 H Crossmatch 08/12/16 08/12/16 08/12/16 12:16 15:23 16:18 WBC RBC Hgb Hct RDW Seg Neuts % (Manual) Lymphocytes % (Manual) Monocytes % (Manual) Seg Neutrophils # Man Monocytes # (Manual) Eosinophils # (Manual) D-Dimer 5042.20 H POC ABG pCO2 29.4 L POC ABG pO2 51 L Sodium Potassium Chloride Carbon Dioxide BUN Creatinine Glucose POC Glucose Lactic Acid Calcium TIBC 101 L Ferritin Lactate Dehydrogenase Vitamin B12 Crossmatch 08/12/16 08/12/16 08/13/16 17:45 23:36 06:58 WBC RBC Hgb Hct RDW Seg Neuts % (Manual) Lymphocytes % (Manual) Monocytes % (Manual) Seg Neutrophils # Man Monocytes # (Manual) Eosinophils # (Manual) D-Dimer POC ABG pCO2 POC ABG pO2 Sodium Potassium Chloride Carbon Dioxide BUN Creatinine Glucose POC Glucose 196 H 170 H 199 H Lactic Acid Calcium TIBC Ferritin Lactate Dehydrogenase Vitamin B12 Crossmatch 08/13/16 08/13/16 08/13/16 11:25 16:29 21:10 WBC RBC Hgb Hct RDW Seg Neuts % (Manual) Lymphocytes % (Manual) Monocytes % (Manual) Seg Neutrophils # Man Monocytes # (Manual) Eosinophils # (Manual) D-Dimer POC ABG pCO2 POC ABG pO2 Sodium Potassium Chloride Carbon Dioxide BUN Creatinine Glucose POC Glucose 267 H 277 H 203 H Lactic Acid Calcium TIBC Ferritin Lactate Dehydrogenase Vitamin B12 Crossmatch 08/13/16 08/13/16 08/14/16 Unknown Unknown 08:26 WBC 30.0 H 28.9 H RBC 2.75 L 2.92 L Hgb 7.8 L 8.2 L Hct 24.0 L 25.9 L RDW 18.4 H 18.8 H Seg Neuts % (Manual) 75.0 H 85.5 H Lymphocytes % (Manual) 7.0 L 4.5 L Monocytes % (Manual) Seg Neutrophils # Man 22.5 H 24.7 H Monocytes # (Manual) 0.9 H Eosinophils # (Manual) D-Dimer POC ABG pCO2 POC ABG pO2 Sodium 133 L Potassium 3.4 L Chloride 95.2 L Carbon Dioxide 18 L BUN 58 H Creatinine 2.9 H Glucose 201 H POC Glucose Lactic Acid Calcium 8.2 L TIBC Ferritin Lactate Dehydrogenase Vitamin B12 Crossmatch 08/14/16 08:26 WBC RBC Hgb Hct RDW Seg Neuts % (Manual) Lymphocytes % (Manual) Monocytes % (Manual) Seg Neutrophils # Man Monocytes # (Manual) Eosinophils # (Manual) D-Dimer POC ABG pCO2 POC ABG pO2 Sodium Potassium Chloride Carbon Dioxide 15 L BUN 77 H Creatinine 3.5 H Glucose 289 H POC Glucose Lactic Acid Calcium 8.3 L TIBC Ferritin Lactate Dehydrogenase Vitamin B12 Crossmatch Allied health notes reviewed: nursing
[2016-08-14] MEDS: FLAGYL PO SCH (14:36)
[2016-08-14] MEDS: LEVEMIR SUB-Q SCH (14:43)
--- NOTE | 2016-08-14 15:14 | XRay Report ---
Portable chest: The lungs are hypoventilated. There is atelectasis at the right lung base not present on recent study of August 11. There appears to have been improvement in the aeration of the left lung base. A right PICC line is now present with the tip in the mid SVC. The left jugular Vas-Cath is unchanged in good position with the tip in the mid SVC. Impression: 1. Changing pattern of basilar atelectasis/infiltrate. 2. Well-positioned right PICC line.
[2016-08-14] MEDS: PROCRIT IV PRN (23:03)
[2016-08-14] MEDS: HEPARIN IV PRN (23:50)
[2016-08-15] MEDS: DUONEB 0.5 MG-3 MG/3 ML SOLN IH SCH ×4 (00:09→23:39)
[2016-08-15] MEDS: FLAGYL PO SCH ×4 (00:12→21:03)
[2016-08-15] MEDS: HEPARIN SUB-Q SCH ×3 (00:13→21:03)
[2016-08-15] MEDS: KEPPRA PO SCH ×3 (00:13→21:03)
[2016-08-15] MEDS: NOVOLOG SUB-Q SCH ×5 (00:18→23:48)
[2016-08-15] MEDS: DILAUDID IV PRN ×2 (04:05→21:02)
[2016-08-15] MEDS: LEVOPHED DRIP 4 MG/NS 250 ML 250 ML IV SCH ×2 (04:07→12:58)
[2016-08-15 06:33] LABS: Hematocrit 23.4 % (30.3-42.9); Hemoglobin 7.8 gm/dl (10.1-14.3); Mean Corpuscular HGB Conc 33 % (30-34); Mean Corpuscular Hemoglobin 29 pg (28-32); Mean Corpuscular Volume 87 fl (79-97); Platelet Count 275 K/mm3 (140-440); Red Blood Count 2.67 M/mm3 (3.65-5.03); Red Cell Distribution Width 18.4 % (13.2-15.2)
[2016-08-15 06:34] LABS: White Blood Count 30.1 K/mm3 (4.5-11.0)
[2016-08-15 06:54] LABS: BUN/Creatinine Ratio 19.61; Calcium 8.3 mg/dL (8.4-10.2); Chloride 96.6 mmol/L (98-107); Potassium 3.5 mmol/L (3.6-5.0)
[2016-08-15 07:35] LABS: Basophils % (Manual) 0 % (0.0-1.8); Blastocytes % (Manual) 0 %
[2016-08-15 07:36] LABS: Anisocytosis 1+; Hypochromasia 1+
[2016-08-15 07:42] LABS: Diff Status Complete
[2016-08-15] MEDS: MERREM 1,000 MG in NACL 0.9% 100 ML IV SCH (09:10)
--- NOTE | 2016-08-15 09:14 | Progress Note ---
Assessment and Plan Impression: * ESRD * Sepsis * Gram neg Bacteremia * Sacral decubiti * DM type 2 * HTN * Anemia in ESRD Plan: * abx per ID * strict i/os * avoid nephrotoxins * with gram negative bactermia, will need new tunelled dialysis catheter * daily lytes * dailysis TTHSAT Subjective Date of service: 08/15/16 Principal diagnosis: Polymicrobial bacteremia and sepsis; C. difficile infection Interval history: resting well in bed today Objective - Exam Narrative Exam: General appearance: Present: no acute distress - EENT Eyes: Present: PERRL, EOM intact ENT: hearing intact, clear oral mucosa, dentition normal - Neck Neck: Present: supple, normal ROM - Respiratory Respiratory effort: normal Respiratory: bilateral: CTA - Cardiovascular Rhythm: regular Heart Sounds: Present: S1 & S2. Absent: gallop, rub - Extremities Extremities: no ischemia, No edema, Full ROM - Abdominal General gastrointestinal: soft, non-tender, non-distended, normal bowel sounds - Integumentary Integumentary: Present: clear, warm, dry - Neurologic Neurologic: CNII-XII intact, moves all extremities, other (confused) - Vital Signs Vital signs: Vital Signs - 12hr 08/14/16 08/14/16 08/14/16 21:15 21:30 21:45 Temperature Pulse Rate 94 H 96 H 97 H Pulse Rate [ Anterior Bilateral Throughout] Pulse Rate [ From Monitor] Respiratory Rate Respiratory Rate [Anterior Bilateral Throughout] Blood Pressure 107/50 116/55 113/48 O2 Sat by Pulse 99 Oximetry 08/14/16 08/14/16 08/14/16 22:00 22:15 22:30 Temperature Pulse Rate 102 H 100 H 97 H Pulse Rate [ Anterior Bilateral Throughout] Pulse Rate [ From Monitor] Respiratory 20 22 Rate Respiratory Rate [Anterior Bilateral Throughout] Blood Pressure 121/49 104/55 104/49 O2 Sat by Pulse 99 100 Oximetry 08/14/16 08/14/16 08/14/16 22:45 23:00 23:03 Temperature Pulse Rate 99 H 102 H 101 H Pulse Rate [ Anterior Bilateral Throughout] Pulse Rate [ From Monitor] Respiratory 22 22 Rate Respiratory Rate [Anterior Bilateral Throughout] Blood Pressure 102/50 105/58 105/58 O2 Sat by Pulse 100 100 Oximetry 08/14/16 08/14/16 08/14/16 23:15 23:30 23:40 Temperature Pulse Rate 103 H 101 H 99 H Pulse Rate [ Anterior Bilateral Throughout] Pulse Rate [ From Monitor] Respiratory 19 Rate Respiratory Rate [Anterior Bilateral Throughout] Blood Pressure 94/48 111/54 117/51 O2 Sat by Pulse 99 Oximetry 08/14/16 08/15/16 08/15/16 23:52 00:00 00:08 Temperature 98.8 F 98.2 F Pulse Rate 98 H 98 H Pulse Rate [ 95 H Anterior Bilateral Throughout] Pulse Rate [ 89 From Monitor] Respiratory 19 16 Rate Respiratory 20 Rate [Anterior Bilateral Throughout] Blood Pressure 117/51 121/55 O2 Sat by Pulse 99 Oximetry 08/15/16 08/15/16 08/15/16 00:10 00:30 01:00 Temperature Pulse Rate 95 H 91 H 90 Pulse Rate [ 93 H Anterior Bilateral Throughout] Pulse Rate [ From Monitor] Respiratory 20 16 17 Rate Respiratory 20 Rate [Anterior Bilateral Throughout] Blood Pressure 117/51 124/48 123/48 O2 Sat by Pulse 100 100 100 Oximetry 08/15/16 08/15/16 08/15/16 01:30 01:49 02:00 Temperature Pulse Rate 87 90 92 H Pulse Rate [ Anterior Bilateral Throughout] Pulse Rate [ From Monitor] Respiratory 20 22 20 Rate Respiratory Rate [Anterior Bilateral Throughout] Blood Pressure 117/43 121/44 128/48 O2 Sat by Pulse 100 100 100 Oximetry 08/15/16 08/15/16 08/15/16 02:15 02:30 02:45 Temperature Pulse Rate 94 H 93 H 96 H Pulse Rate [ Anterior Bilateral Throughout] Pulse Rate [ From Monitor] Respiratory 14 22 13 Rate Respiratory Rate [Anterior Bilateral Throughout] Blood Pressure 121/50 129/49 121/54 O2 Sat by Pulse 100 100 100 Oximetry 08/15/16 08/15/16 08/15/16 03:00 03:15 03:31 Temperature Pulse Rate 100 H 92 H 92 H Pulse Rate [ Anterior Bilateral Throughout] Pulse Rate [ From Monitor] Respiratory 24 20 24 Rate Respiratory Rate [Anterior Bilateral Throughout] Blood Pressure 111/57 131/49 122/47 O2 Sat by Pulse 100 100 100 Oximetry 08/15/16 08/15/16 08/15/16 03:45 04:00 04:07 Temperature 98.7 F Pulse Rate 92 H 95 H 91 H Pulse Rate [ Anterior Bilateral Throughout] Pulse Rate [ 92 H From Monitor] Respiratory 23 21 21 Rate Respiratory Rate [Anterior Bilateral Throughout] Blood Pressure 134/47 147/51 147/51 O2 Sat by Pulse 100 100 100 Oximetry 08/15/16 08/15/16 08/15/16 04:15 04:31 04:45 Temperature Pulse Rate 91 H 94 H 91 H Pulse Rate [ Anterior Bilateral Throughout] Pulse Rate [ From Monitor] Respiratory 23 22 20 Rate Respiratory Rate [Anterior Bilateral Throughout] Blood Pressure 147/51 113/42 131/44 O2 Sat by Pulse 100 97 100 Oximetry 08/15/16 08/15/16 08/15/16 05:00 05:15 05:30 Temperature Pulse Rate 89 88 92 H Pulse Rate [ Anterior Bilateral Throughout] Pulse Rate [ From Monitor] Respiratory 20 23 27 H Rate Respiratory Rate [Anterior Bilateral Throughout] Blood Pressure 126/43 121/43 111/45 O2 Sat by Pulse 100 100 98 Oximetry 08/15/16 08/15/16 08/15/16 05:45 06:01 06:15 Temperature Pulse Rate 92 H 93 H 90 Pulse Rate [ Anterior Bilateral Throughout] Pulse Rate [ From Monitor] Respiratory 20 19 19 Rate Respiratory Rate [Anterior Bilateral Throughout] Blood Pressure 116/51 83/37 83/37 O2 Sat by Pulse 100 100 100 Oximetry 08/15/16 08/15/16 08/15/16 06:30 06:45 07:00 Temperature Pulse Rate 100 H 101 H 96 H Pulse Rate [ Anterior Bilateral Throughout] Pulse Rate [ From Monitor] Respiratory 25 H 28 H 24 Rate Respiratory Rate [Anterior Bilateral Throughout] Blood Pressure 141/54 138/61 146/54 O2 Sat by Pulse 96 99 99 Oximetry 08/15/16 08/15/16 08:06 08:15 Temperature Pulse Rate Pulse Rate [ 96 H 103 H Anterior Bilateral Throughout] Pulse Rate [ From Monitor] Respiratory Rate Respiratory 22 22 Rate [Anterior Bilateral Throughout] Blood Pressure O2 Sat by Pulse 96 Oximetry - Lab 08/15/16 06:00 08/15/16 06:00 Most recent lab results Calcium 8.3 mg/dL (8.4-10.2) L 08/15/16 06:00 Magnesium 2.2 mg/dL (1.7-2.3) 08/11/16 15:28
[2016-08-15] MEDS: PEPCID PO SCH (09:15)
[2016-08-15] MEDS: LEVEMIR SUB-Q SCH (09:15)
[2016-08-15] MEDS: POTASSIUM CHLORIDE FEEDTUBE SCH (09:15)
[2016-08-15] MEDS ORDERED: VANCOMYCIN/NS 1 GM/250 ML 250 ML IV ONE (10:00)
--- NOTE | 2016-08-15 10:03 | Progress Note ---
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 Patient is currently on blood pressure support. Admitting blood cultures are growing blood cultures Gram positive cocci in pairs and Gram negative rods. Problem list: 1. Polymicrobial bacteremia and sepsis -08/11 blood cultures with 4/4 bottles with ESBL Klebsiella pneumoniae and Enterococcus faecium -Suspect that the left chest wall permacath is infected. 2. C. diff. infection -Toxin assay positive 08/13 3. Leukocytosis -Marked elevation to 51,000 -Multifactorial with bacteremia & C diff infection -Trending downward. 4. Presacral pressure sore -Uninfected at present 5. End-stage renal failure -Left chest PermCath 6. Status post right hemispheral stroke -Left hemiplegia 7. Lactic acidosis -Secondary to #1 -Improving on current treatment 8. Type 2 DM PLAN: 1. Continue Meropenem and vancomycin pending Enterococcal sensitivities 2. Continue enteral Flagyl vs C diff infection 3. Local care 4. Glycemic control as per the primary team 5. Recommend removal of PermCath and culture of tip when feasible 6. C. difficile isolation precautions Arash Bennett MD [facility] Office: [phone] Subjective Date of service: 08/15/16 Principal diagnosis: Polymicrobial bacteremia and sepsis; C. difficile infection Interval history: No acute distress. Remains confused but alert and somewhat agitated. Objective - Exam Narrative Exam: GENERAL: Well-developed, chronically ill-appearing female who is alert and in no acute distress. HEENT: Pupils are equal reactive to light and accommodation. Conjunctiva clear. Bilateral arcus senilis. Oropharynx is normal with no evidence of oral candidiasis or pharyngitis. Patient is edentulous. NECK: Supple. No enlargement of the thyroid gland. No significant cervical lymphadenopathy. No jugular venous distention at 30. LUNGS: Clear with no adventitious sounds. CHEST: Left vas cath with no signs of infection. Not tender to palpation and no drainage visible. HEART: Regular rate. S1 and S2 are normal. There are no gallops, clicks or rubs heard. II/ JOSEPHINE heard best over the LUSB. No diastolic murmur. ABDOMEN: Soft and nontender. Liver and spleen are not palpably enlarged or tender. No palpable masses. Bowel sounds are normoactive. PEG site is clean with no signs of infection. : Normal external female. No Rico catheter. EXTREMITIES: No rash, peripheral lymphadenopathy, clubbing or edema. SKIN: Bilateral ill pressure sores R > L without signs of secondary infection. Stage II sacral pressure sore with no signs of infection but contaminated with liquid stool. NEUROLOGIC: Left hemiplegia. Alert. Oriented to person only. - Constitutional Vitals: Vital Signs Temp Pulse Resp BP Pulse Ox 99.9 F H 101 H 28 H 121/45 94 08/15/16 08:15 08/15/16 09:45 08/15/16 09:45 08/15/16 09:45 08/15/16 09:45 Temperature -Last 24 Hours Temperature 99.9 F Temperature 98.7 F Temperature 98.2 F Temperature 98.8 F Temperature 98.8 F Temperature 98.8 F Temperature 98.2 F Temperature 98.2 F - Labs CBC & Chem 7: 08/15/16 06:00 08/15/16 06:00 Labs: Abnormal lab results Microbiology 08/12/16 11:41 Vascular Cath Blood Culture - Preliminary Klebsiella Pneumoniae (ESBL strain, quinolone resistant, carbapenem sensitive) Enterococcus faecium (sensitivities pending but beta -lactamase negative) 08/12/16 11:41 Peripheral/Venous Blood Culture - 2/2 bottles with GPC in pairs and chains 08/11/16 18:31 Peripheral/Venous Blood Culture - Preliminary Klebsiella Pneumoniae Enterococcus Faecium 08/11/16 18:31 Peripheral/Venous Blood Culture - Preliminary Klebsiella Pneumoniae Enterococcus Faecium 08/12/16 16:55 Stool C. difficile DNA Amplification - Positive 08/12/16 16:54 Stool Stool Occult Blood (MARK) - Final
--- NOTE | 2016-08-15 12:10 | Progress Note ---
Assessment and Plan Assessment and plan: 1. Septic shock. Poly microbial sepsis, gram negative and gram positive in blood( Klebsiella and Enterococcus). Patient with a significant leukocytosis but improved. Patient currently on Levophed. Wean vasopressor support to maintain MAP greater than 65. Continue IV antibiotics ID following. Trend lactate levels. C. diff +. Will need change of the Permacath, follow up blood cultures to document clearance and replacement of HD catheter. If she continues to need vasopressor support, we may have to treat her with stress dose steroids for sepsis induced adrenal insufficiency. DVT prophylaxis Wound care to treat sacral decubitus ulcer, off loading and skin managemnt program to prevent further skin breakdown. 2. Toxic metabolic encephalopathy. Continue treating underlying causes. 3. UTI. Follow-up urine culture and continue antibiotics. 4. Diabetes mellitus, type II. Continue Accu-Cheks and sliding scale regular insulin. 5. ESRD. Nephrology consultation pending. Continue hemodialysis per nephrology. 6. Seizure disorder. Continue Keppra IV. No new activity. Seizure precautions. 7. Acute on chronic anemia of chronic disease. Etiology is unknown. Check Hemoccult of stools, iron studies, B12, folate, reticulocyte count and LDH. Patient to receive 2 units PRBCs. Follow-up H&H. 8. C. difficile colitis. Continue Flagyl. 9. Oropharyngeal dysphagia s/p PEG- Enteric feeding, glycemic control. Aspiration precautions. The high probability of a clinically significant, sudden or life threatening deterioration of the hemodynamic status required my full and direct attention, intervention and personal management. The aggregate critical care time was [32] minutes. This time is in addition to time spent performing reported procedures but includes the following: [x] Data Review and interpretation [x] Patient assessment and monitoring of vital signs [x] Documentation [x] Medication orders and management - Patient Problems (1) Septic shock Current Visit: Yes Status: Acute (2) Leukocytosis Current Visit: Yes Status: Acute (3) Clostridium difficile colitis Current Visit: Yes Status: Acute (4) Septicemia due to enterococcus Current Visit: Yes Status: Acute (5) Sepsis due to Klebsiella Current Visit: Yes Status: Acute (6) Altered mental status Current Visit: Yes Status: Acute (7) Pressure ulcer Current Visit: Yes Status: Acute Subjective Date of service: 08/15/16 Principal diagnosis: Polymicrobial bacteremia and sepsis; C. difficile infection Interval history: Continues to require vasopressor support- was off the norepinephrine for a few hours this morning. Her MAPs dropped to 50, so it had to be resumed. Femoral CVC was removed, patient has a right upper extrmity PICC (double lumen) Moans and groans intermittently. No new overnight events reported or documented. patient was seen and examined. Vitals, labs, medications, chart were reviewed. Patient was discussed during interdisciplinary rounds. Objective - Exam Narrative Exam: GENERAL: chronically ill-appearing female who opens her eyes on verbal command and in no acute distress. HEENT: Pupils are equal reactive to light and accommodation. Conjunctiva clear. Bilateral arcus senilis. Oropharynx is normal with no evidence of oral candidiasis or pharyngitis. Patient is edentulous. NECK: Supple. No enlargement of the thyroid gland. No significant cervical lymphadenopathy. No jugular venous distention at 30. LUNGS: Clear with no adventitious sounds. CHEST: Left perma cath with no signs of infection. Not tender to palpation and no drainage visible. HEART: Regular rate. S1 and S2 are normal. There are no gallops, clicks or rubs heard. II/ JOSEPHINE heard best over the LUSB. No diastolic murmur. ABDOMEN: Obese, Soft and non tender. Liver and spleen are not palpably enlarged or tender. No palpable masses. Bowel sounds are normoactive. PEG site is clean with no signs of infection. : Normal external female. No Rico catheter. EXTREMITIES: No rash, peripheral lymphadenopathy, clubbing or edema. Dressing to left lower extremity SKIN: Bilateral ill pressure sores R > L without signs of secondary infection. Stage II sacral pressure sore with no signs of infection but contaminated with liquid stool. NEUROLOGIC: Somnolent but rousable, not obeying commands Vital Signs - 12hr 08/15/16 08/15/16 08/15/16 00:08 00:10 00:30 Temperature Pulse Rate 95 H 91 H Pulse Rate [ 95 H 93 H Anterior Bilateral Throughout] Pulse Rate [ From Monitor] Respiratory 20 16 Rate Respiratory 20 20 Rate [Anterior Bilateral Throughout] Blood Pressure 117/51 124/48 O2 Sat by Pulse 100 100 Oximetry 08/15/16 08/15/16 08/15/16 01:00 01:30 01:49 Temperature Pulse Rate 90 87 90 Pulse Rate [ Anterior Bilateral Throughout] Pulse Rate [ From Monitor] Respiratory 17 20 22 Rate Respiratory Rate [Anterior Bilateral Throughout] Blood Pressure 123/48 117/43 121/44 O2 Sat by Pulse 100 100 100 Oximetry 08/15/16 08/15/16 08/15/16 02:00 02:15 02:30 Temperature Pulse Rate 92 H 94 H 93 H Pulse Rate [ Anterior Bilateral Throughout] Pulse Rate [ From Monitor] Respiratory 20 14 22 Rate Respiratory Rate [Anterior Bilateral Throughout] Blood Pressure 128/48 121/50 129/49 O2 Sat by Pulse 100 100 100 Oximetry 08/15/16 08/15/16 08/15/16 02:45 03:00 03:15 Temperature Pulse Rate 96 H 100 H 92 H Pulse Rate [ Anterior Bilateral Throughout] Pulse Rate [ From Monitor] Respiratory 13 24 20 Rate Respiratory Rate [Anterior Bilateral Throughout] Blood Pressure 121/54 111/57 131/49 O2 Sat by Pulse 100 100 100 Oximetry 08/15/16 08/15/16 08/15/16 03:31 03:45 04:00 Temperature 98.7 F Pulse Rate 92 H 92 H 95 H Pulse Rate [ Anterior Bilateral Throughout] Pulse Rate [ 92 H From Monitor] Respiratory 24 23 21 Rate Respiratory Rate [Anterior Bilateral Throughout] Blood Pressure 122/47 134/47 147/51 O2 Sat by Pulse 100 100 100 Oximetry 08/15/16 08/15/16 08/15/16 04:07 04:15 04:31 Temperature Pulse Rate 91 H 91 H 94 H Pulse Rate [ Anterior Bilateral Throughout] Pulse Rate [ From Monitor] Respiratory 21 23 22 Rate Respiratory Rate [Anterior Bilateral Throughout] Blood Pressure 147/51 147/51 113/42 O2 Sat by Pulse 100 100 97 Oximetry 08/15/16 08/15/16 08/15/16 04:45 05:00 05:15 Temperature Pulse Rate 91 H 89 88 Pulse Rate [ Anterior Bilateral Throughout] Pulse Rate [ From Monitor] Respiratory 20 20 23 Rate Respiratory Rate [Anterior Bilateral Throughout] Blood Pressure 131/44 126/43 121/43 O2 Sat by Pulse 100 100 100 Oximetry 08/15/16 08/15/16 08/15/16 05:30 05:45 06:01 Temperature Pulse Rate 92 H 92 H 93 H Pulse Rate [ Anterior Bilateral Throughout] Pulse Rate [ From Monitor] Respiratory 27 H 20 19 Rate Respiratory Rate [Anterior Bilateral Throughout] Blood Pressure 111/45 116/51 83/37 O2 Sat by Pulse 98 100 100 Oximetry 08/15/16 08/15/16 08/15/16 06:15 06:30 06:45 Temperature Pulse Rate 90 100 H 101 H Pulse Rate [ Anterior Bilateral Throughout] Pulse Rate [ From Monitor] Respiratory 19 25 H 28 H Rate Respiratory Rate [Anterior Bilateral Throughout] Blood Pressure 83/37 141/54 138/61 O2 Sat by Pulse 100 96 99 Oximetry 08/15/16 08/15/16 08/15/16 07:00 07:11 07:15 Temperature Pulse Rate 96 H 114 H 97 H Pulse Rate [ Anterior Bilateral Throughout] Pulse Rate [ From Monitor] Respiratory 24 31 H 22 Rate Respiratory Rate [Anterior Bilateral Throughout] Blood Pressure 146/54 146/54 118/48 O2 Sat by Pulse 99 100 100 Oximetry 08/15/16 08/15/16 08/15/16 07:30 07:45 08:01 Temperature Pulse Rate 97 H 99 H 100 H Pulse Rate [ Anterior Bilateral Throughout] Pulse Rate [ From Monitor] Respiratory 21 23 16 Rate Respiratory Rate [Anterior Bilateral Throughout] Blood Pressure 98/53 98/53 140/52 O2 Sat by Pulse 100 100 99 Oximetry 08/15/16 08/15/16 08/15/16 08:06 08:15 08:30 Temperature 99.9 F H Pulse Rate 107 H 104 H Pulse Rate [ 96 H 103 H Anterior Bilateral Throughout] Pulse Rate [ 104 H From Monitor] Respiratory 17 23 Rate Respiratory 22 22 Rate [Anterior Bilateral Throughout] Blood Pressure 155/52 119/70 O2 Sat by Pulse 96 95 92 Oximetry 08/15/16 08/15/16 08/15/16 08:45 09:00 09:15 Temperature Pulse Rate 104 H 104 H 104 H Pulse Rate [ Anterior Bilateral Throughout] Pulse Rate [ From Monitor] Respiratory 26 H 36 H 19 Rate Respiratory Rate [Anterior Bilateral Throughout] Blood Pressure 138/50 136/54 136/41 O2 Sat by Pulse 92 94 94 Oximetry 08/15/16 08/15/16 08/15/16 09:30 09:45 09:47 Temperature Pulse Rate 101 H 101 H 100 H Pulse Rate [ Anterior Bilateral Throughout] Pulse Rate [ From Monitor] Respiratory 26 H 28 H 28 H Rate Respiratory Rate [Anterior Bilateral Throughout] Blood Pressure 126/47 121/45 121/45 O2 Sat by Pulse 94 94 96 Oximetry 08/15/16 08/15/16 08/15/16 10:00 10:15 10:30 Temperature Pulse Rate 102 H 100 H 101 H Pulse Rate [ Anterior Bilateral Throughout] Pulse Rate [ From Monitor] Respiratory 29 H 30 H 24 Rate Respiratory Rate [Anterior Bilateral Throughout] Blood Pressure 116/44 123/41 125/44 O2 Sat by Pulse 94 94 95 Oximetry Constitutional: lethargic Eyes: non-icteric ENT: oropharynx moist Neck: supple Effort: normal Ascultation: Bilateral: diminished breath sounds Cardiovascular: regular rate and rhythm Gastrointestinal: normoactive bowel sounds CBC and BMP: 08/15/16 06:00 08/15/16 06:00 ABG, PT/INR, D-dimer: ABG POC ABG pH 7.444 (7.35-7.45) 08/12/16 15:23 POC ABG pCO2 29.4 (35-45) L 08/12/16 15:23 POC ABG pO2 51 (80-105) L 08/12/16 15:23 POC ABG HCO3 20.2 08/12/16 15:23 POC ABG Total CO2 21 08/12/16 15:23 POC ABG O2 Sat 88 08/12/16 15:23 PT/INR, D-dimer D-Dimer 5042.20 ng/mlDDU (0-234) H 08/12/16 16:18 Abnormal lab findings: Abnormal Labs 08/11/16 08/11/16 08/12/16 19:45 23:01 02:35 WBC RBC Hgb Hct RDW Seg Neuts % (Manual) Lymphocytes % (Manual) Monocytes % (Manual) Seg Neutrophils # Man Monocytes # (Manual) Eosinophils # (Manual) D-Dimer POC ABG pCO2 POC ABG pO2 Sodium Potassium Chloride Carbon Dioxide BUN Creatinine Glucose POC Glucose 307 H Lactic Acid 3.5 H* Calcium TIBC Ferritin Lactate Dehydrogenase Vitamin B12 Crossmatch See Detail 08/12/16 08/12/16 08/12/16 05:30 05:30 11:09 WBC 38.6 H RBC 3.14 L Hgb 8.7 L Hct 28.1 L D RDW 18.3 H Seg Neuts % (Manual) Lymphocytes % (Manual) 9.0 L Monocytes % (Manual) 8.0 H Seg Neutrophils # Man 16.6 H Monocytes # (Manual) 3.1 H Eosinophils # (Manual) 1.2 H D-Dimer POC ABG pCO2 POC ABG pO2 Sodium 133 L Potassium 3.0 L Chloride 92.4 L Carbon Dioxide 21 L BUN 44 H Creatinine 2.3 H Glucose 270 H POC Glucose 247 H Lactic Acid Calcium 8.2 L TIBC Ferritin Lactate Dehydrogenase Vitamin B12 Crossmatch 08/12/16 08/12/16 08/12/16 12:16 12:16 12:16 WBC RBC Hgb Hct RDW Seg Neuts % (Manual) Lymphocytes % (Manual) Monocytes % (Manual) Seg Neutrophils # Man Monocytes # (Manual) Eosinophils # (Manual) D-Dimer POC ABG pCO2 POC ABG pO2 Sodium Potassium Chloride Carbon Dioxide BUN Creatinine Glucose POC Glucose Lactic Acid Calcium TIBC Ferritin 2000.0 H Lactate Dehydrogenase 276 H Vitamin B12 1117 H Crossmatch 08/12/16 08/12/16 08/12/16 12:16 15:23 16:18 WBC RBC Hgb Hct RDW Seg Neuts % (Manual) Lymphocytes % (Manual) Monocytes % (Manual) Seg Neutrophils # Man Monocytes # (Manual) Eosinophils # (Manual) D-Dimer 5042.20 H POC ABG pCO2 29.4 L POC ABG pO2 51 L Sodium Potassium Chloride Carbon Dioxide BUN Creatinine Glucose POC Glucose Lactic Acid Calcium TIBC 101 L Ferritin Lactate Dehydrogenase Vitamin B12 Crossmatch 08/12/16 08/12/16 08/13/16 17:45 23:36 06:58 WBC RBC Hgb Hct RDW Seg Neuts % (Manual) Lymphocytes % (Manual) Monocytes % (Manual) Seg Neutrophils # Man Monocytes # (Manual) Eosinophils # (Manual) D-Dimer POC ABG pCO2 POC ABG pO2 Sodium Potassium Chloride Carbon Dioxide BUN Creatinine Glucose POC Glucose 196 H 170 H 199 H Lactic Acid Calcium TIBC Ferritin Lactate Dehydrogenase Vitamin B12 Crossmatch 08/13/16 08/13/16 08/13/16 11:25 16:29 21:10 WBC RBC Hgb Hct RDW Seg Neuts % (Manual) Lymphocytes % (Manual) Monocytes % (Manual) Seg Neutrophils # Man Monocytes # (Manual) Eosinophils # (Manual) D-Dimer POC ABG pCO2 POC ABG pO2 Sodium Potassium Chloride Carbon Dioxide BUN Creatinine Glucose POC Glucose 267 H 277 H 203 H Lactic Acid Calcium TIBC Ferritin Lactate Dehydrogenase Vitamin B12 Crossmatch 08/13/16 08/13/16 08/14/16 Unknown Unknown 07:42 WBC 30.0 H RBC 2.75 L Hgb 7.8 L Hct 24.0 L RDW 18.4 H Seg Neuts % (Manual) 75.0 H Lymphocytes % (Manual) 7.0 L Monocytes % (Manual) Seg Neutrophils # Man 22.5 H Monocytes # (Manual) Eosinophils # (Manual) D-Dimer POC ABG pCO2 POC ABG pO2 Sodium 133 L Potassium 3.4 L Chloride 95.2 L Carbon Dioxide 18 L BUN 58 H Creatinine 2.9 H Glucose 201 H POC Glucose 306 H Lactic Acid Calcium 8.2 L TIBC Ferritin Lactate Dehydrogenase Vitamin B12 Crossmatch 08/14/16 08/14/16 08/14/16 08:26 08:26 11:19 WBC 28.9 H RBC 2.92 L Hgb 8.2 L Hct 25.9 L RDW 18.8 H Seg Neuts % (Manual) 85.5 H Lymphocytes % (Manual) 4.5 L Monocytes % (Manual) Seg Neutrophils # Man 24.7 H Monocytes # (Manual) 0.9 H Eosinophils # (Manual) D-Dimer POC ABG pCO2 POC ABG pO2 Sodium Potassium Chloride Carbon Dioxide 15 L BUN 77 H Creatinine 3.5 H Glucose 289 H POC Glucose 274 H Lactic Acid Calcium 8.3 L TIBC Ferritin Lactate Dehydrogenase Vitamin B12 Crossmatch 08/14/16 08/14/16 08/15/16 15:56 21:12 06:00 WBC 30.1 H RBC 2.67 L Hgb 7.8 L Hct 23.4 L RDW 18.4 H Seg Neuts % (Manual) 86.0 H Lymphocytes % (Manual) 4.0 L Monocytes % (Manual) Seg Neutrophils # Man 25.9 H Monocytes # (Manual) 1.8 H Eosinophils # (Manual) D-Dimer POC ABG pCO2 POC ABG pO2 Sodium Potassium Chloride Carbon Dioxide BUN Creatinine Glucose POC Glucose 284 H 357 H Lactic Acid Calcium TIBC Ferritin Lactate Dehydrogenase Vitamin B12 Crossmatch 08/15/16 08/15/16 06:00 11:17 WBC RBC Hgb Hct RDW Seg Neuts % (Manual) Lymphocytes % (Manual) Monocytes % (Manual) Seg Neutrophils # Man Monocytes # (Manual) Eosinophils # (Manual) D-Dimer POC ABG pCO2 POC ABG pO2 Sodium Potassium 3.5 L Chloride 96.6 L Carbon Dioxide 21 L BUN 51 H Creatinine 2.6 H Glucose 214 H POC Glucose 280 H Lactic Acid Calcium 8.3 L TIBC Ferritin Lactate Dehydrogenase Vitamin B12 Crossmatch Chest x-ray: report reviewed Allied health notes reviewed: nursing
[2016-08-15] MEDS ORDERED: NACL 0.9% 250ML 250 ML IV ONE (12:13)
[2016-08-15] MEDS ORDERED: LEVEMIR SUB-Q ONE (13:00)
[2016-08-15] MEDS ORDERED: XYLOCAINE 2% INFILTRATI ONE (15:55)
--- NOTE | 2016-08-15 17:05 | Operative Report ---
Operative Report Operative Report: EXAM: Tunneled catheter removal DATE: 08/15/16 INDICATION: Left internal jugular PermCath infection with patient on pressors and slight amount of purulence in the tunnel. MEDICATIONS: Please see nursing report for full details. PER DIEM CLERK: ADITHYA ANTOINE MD CONTRAST: None PROCEDURE: The patient was positioned with the head towards the contralateral side. The tunneled catheter was prepped and draped in a sterile fashion. Blunt dissection was performed and the cuff was extracted. The catheter was extracted and pressure was held at the venotomy and dermatotomy site until hemostasis was achieved. Sterile bandage was then applied. The patient tolerated the procedure without issue. Tip cut off and sent for culture. FINDINGS: Successful removal of the tunneled catheter. IMPRESSION: Successful removal of the left internal jugular tunneled catheter.
--- NOTE | 2016-08-15 19:39 | History and Physical Report ---
History of Present Illness Date of examination: 08/15/16 Date of admission: 08/11/16 18:53 Past History Past Medical History: anemia, COPD, diabetes, ESRD, heart failure, hypertension , seizures, other (dementia, chronic pain, mood disorder) Past Surgical History: Other (permacath in the left chest, toe surgery) Social history: no significant social history Family history: no significant family history Medications and Allergies Allergies Allergy/AdvReac Type Severity Reaction Status Date / Time Iodine and Iodide Containing Allergy Nausea Verified 05/29/15 12:33 Produc Home Medications Medication Instructions Recorded Confirmed Last Taken Type Bisacodyl [Dulcolax suppos] [address] QDAY PRN #30 supp.rect 12/14/15 08/11/16 Unknown Rx levETIRAcetam [Keppra TAB] 500 mg PO Q12H tablet 12/14/15 08/11/16 Unknown Rx Acetaminophen [Acetaminophen TAB] 650 mg FEEDTUBE Q6HR PRN 03/10/16 08/11/16 Unknown History Ascorbic Acid [Vitamin C] 500 mg FEEDTUBE BID 03/10/16 08/11/16 Unknown History Diphenhydramine HCl [Benadryl 25 mg FEEDTUBE Q6H PRN 03/10/16 08/11/16 Unknown History Allergy TAB] Duloxetine HCl [Cymbalta] 60 mg FEEDTUBE QDAY 03/10/16 08/11/16 Unknown History Hyoscyamine Sulfate [Hyoscyamine 0.125 mg PO Q4H PRN 03/10/16 08/11/16 Unknown History Rapdis 0.125 mg] Insulin Regular, Human [HumuLIN R] 100 units SQ ACHS 03/10/16 08/11/16 Unknown History LORazepam [Ativan] 1 mg PO TID PRN 03/10/16 08/11/16 Unknown History Metoprolol Tartrate 100 mg PO BID 03/10/16 08/11/16 Unknown History amLODIPine [Norvasc] 10 mg FEEDTUBE QDAY 03/10/16 08/11/16 Unknown History hydrALAZINE [Apresoline TAB] 100 mg FEEDTUBE TID 03/10/16 08/11/16 Unknown History Insulin Aspart Prot/Aspart See Protocol SUB-Q ACHS 05/27/16 08/11/16 Unknown History [NovoLOG Mix 70/30 VIAL] Insulin Glargine [Lantus VIAL] 10 unit SUB-Q QHS 05/27/16 08/11/16 Unknown History Multivitamins Liq [Multiple 15 ml FEEDTUBE QDAY 05/27/16 08/11/16 Unknown History Vitamin Liq (Theragran)] Nut.tx.gluc.intoler,Lac-Fr,Soy 50 ml FEEDTUBE CONT 05/27/16 08/11/16 Unknown History [Glucerna 1.5 Eugene] oxyCODONE /ACETAMINOPHEN [Percocet 1 tab FEEDTUBE Q6H PRN 05/27/16 08/11/16 Unknown History 5/325 mg] HYDROcodone/APAP 5-325 [[place] 1 each FEEDTUBE Q12HR #10 05/31/16 08/11/16 Unknown Rx 5-325 mg TAB] Lipase/Protease/Amylase [Pancreaze 1 each FEEDTUBE PRN PRN #1 capsule 05/31/16 08/11/16 Unknown Rx 10,500 Unit] Sennosides Tab [Senokot] 8.6 mg FEEDTUBE QDAY tablet 05/31/16 08/11/16 Unknown Rx Simple Syrup 15 ml FEEDTUBE PRN PRN #1 oral.liqd 05/31/16 08/11/16 Unknown Rx Simple Syrup 30 ml FEEDTUBE PRN PRN #1 oral.liqd 05/31/16 08/11/16 Unknown Rx Sodium Bicarbonate 325 mg FEEDTUBE PRN PRN #1 tablet 05/31/16 08/11/16 Unknown Rx Aspirin EC [Aspirin Enteric Coated 325 mg FEEDTUBE QDAY 08/11/16 08/11/16 Unknown History TAB] Active Meds: Active Medications Acetaminophen (Tylenol) 1,000 mg FEEDTUBE Q6H PRN PRN Reason: Pain, Mild (1-3) Last Admin: 08/13/16 23:28 Dose: 1,000 mg Albuterol/Ipratropium (Duoneb 0.5 Mg-3 Mg/3 Ml Soln) 1 ampul IH Q8HRT LUCITA Last Admin: 08/15/16 16:59 Dose: 1 ampul Lipase/Protease/Amylase (Katie Martin 10,500 Unit) 1 each FEEDTUBE PRN PRN PRN Reason: For Clogged Feeding Tube Bisacodyl (Dulcolax) [address] QDAY PRN PRN Reason: Constipation unrelieved by MOM Epoetin Kulwinder (Procrit) 10,000 unit IV BRIANNE PRN PRN Reason: hemodialysis Last Admin: 08/14/16 23:03 Dose: 10,000 unit Famotidine (Pepcid) 20 mg PO DAILY LUCITA Last Admin: 08/15/16 09:15 Dose: 20 mg Heparin Sodium (Porcine) (Heparin) 5,000 unit SUB-Q Q12HR LUCITA Last Admin: 08/15/16 09:15 Dose: 5,000 unit Heparin Sodium (Porcine) (Heparin) 5,000 unit IV BRIANNE PRN PRN Reason: perma cath flush Last Admin: 08/14/16 23:50 Dose: 5,000 unit Heparin Sodium (Porcine) (Heparin) 5,000 unit IV BRIANNE PRN PRN Reason: perma cath flush Hydromorphone HCl (Dilaudid) 1 mg IV Q6H PRN PRN Reason: Pain , Severe (7-10) Last Admin: 08/15/16 04:05 Dose: 1 mg Hydrophilic Ointment (Vaseline Lip Therapy) 1 applic TP DIRECT PRN PRN Reason: Dry Lips Norepinephrine (Levophed Drip 4 Mg/Ns 250 Ml) 250 mls @ 7.5 mls/hr IV TITR LUCITA ; 2 MCG/MIN PRN Reason: Protocol Last Titration: 08/15/16 18:38 Dose: 3 mcg/min Sodium Chloride (Nacl 0.9% 1000 Ml) 100 mls @ 999 mls/hr IV BRIANNE PRN PRN Reason: Hypotension Meropenem 1,000 mg/ Sodium (Chloride) 100 mls @ 100 mls/hr IV Q24HR LUCITA Last Admin: 08/15/16 09:10 Dose: 100 mls/hr Insulin Aspart (Novolog) 0 units SUB-Q Q6HR LUCITA PRN Reason: Protocol Last Admin: 08/15/16 17:11 Dose: 4 units Insulin Detemir (Levemir) 20 units SUB-Q DAILY [facility] Levetiracetam (Keppra) 500 mg PO BID [facility] Last Admin: 08/15/16 09:15 Dose: 500 mg Magnesium Hydroxide (Milk Of Magnesia) 30 ml PO Q4H PRN PRN Reason: Constipation Metronidazole (Flagyl) 500 mg PO Q8HR [facility] Last Admin: 08/15/16 14:39 Dose: 500 mg Morphine Sulfate (Morphine) 2 mg IV Q4H PRN PRN Reason: Pain, Moderate (4-6) Last Admin: 08/14/16 01:13 Dose: 2 mg Ondansetron HCl (Zofran) 4 mg IV Q8H PRN PRN Reason: N/V unrelieved by Reglan Potassium Chloride (Potassium Chloride) 20 meq FEEDTUBE QDAY [facility] Last Admin: 08/15/16 09:15 Dose: 20 meq Simple Syrup (Simple Syrup) 15 ml FEEDTUBE PRN PRN PRN Reason: Hypoglycemia Simple Syrup (Simple Syrup) 30 ml FEEDTUBE PRN PRN PRN Reason: Hypoglycemia Sodium Bicarbonate (Sodium Bicarbonate) 325 mg FEEDTUBE PRN PRN PRN Reason: For Clogged Feeding Tube Vancomycin HCl (Vancomycin Pharmacy To Dose) 1 each IV PKCONSULT [facility] Review of Systems All systems: negative Exam - Constitutional Vitals: Temp Pulse Resp BP Pulse Ox 99 F 113 H 26 H 164/73 93 08/15/16 16:00 08/15/16 18:31 08/15/16 18:31 08/15/16 18:31 08/15/16 18:31 General appearance: Present: no acute distress, well-nourished - EENT Eyes: Present: PERRL ENT: hearing intact, clear oral mucosa - Neck Neck: Present: supple, normal ROM - Respiratory Respiratory effort: normal Respiratory: bilateral: CTA - Cardiovascular Heart Sounds: Present: S1 & S2. Absent: rub, click - Extremities Extremities: pulses symmetrical, No edema Peripheral Pulses: within normal limits - Abdominal General gastrointestinal: Present: soft, non-tender, non-distended, normal bowel sounds Female genitourinary: Present: normal - Integumentary Integumentary: Present: clear, warm, dry - Musculoskeletal Musculoskeletal: gait normal, strength equal bilaterally - Psychiatric Psychiatric: appropriate mood/affect, intact judgment & insight - Neurologic Neurologic: CNII-XII intact, moves all extremities Results - Labs CBC & Chem 7: 08/15/16 06:00 08/15/16 06:00 Labs: Abnormal lab results 08/14/16 08/15/16 08/15/16 Range/Units 21:12 06:00 06:00 WBC 30.1 H (4.5-11.0) K/mm3 RBC 2.67 L (3.65-5.03) M/mm3 Hgb 7.8 L (10.1-14.3) gm/dl Hct 23.4 L (30.3-42.9) % RDW 18.4 H (13.2-15.2) % Seg Neuts % (Manual) 86.0 H (40.0-70.0) % Lymphocytes % (Manual) 4.0 L (13.4-35.0) % Seg Neutrophils # Man 25.9 H (1.8-7.7) K/mm3 Monocytes # (Manual) 1.8 H (0.0-0.8) K/mm3 Potassium 3.5 L (3.6-5.0) mmol/L Chloride 96.6 L (98-107) mmol/L Carbon Dioxide 21 L (22-30) mmol/L BUN 51 H (7-17) mg/dL Creatinine 2.6 H (0.7-1.2) mg/dL Glucose 214 H (65-100) mg/dL POC Glucose 357 H (70-105) Calcium 8.3 L (8.4-10.2) mg/dL 08/15/16 08/15/16 Range/Units 11:17 16:43 WBC (4.5-11.0) K/mm3 RBC (3.65-5.03) M/mm3 Hgb (10.1-14.3) gm/dl Hct (30.3-42.9) % RDW (13.2-15.2) % Seg Neuts % (Manual) (40.0-70.0) % Lymphocytes % (Manual) (13.4-35.0) % Seg Neutrophils # Man (1.8-7.7) K/mm3 Monocytes # (Manual) (0.0-0.8) K/mm3 Potassium (3.6-5.0) mmol/L Chloride (98-107) mmol/L Carbon Dioxide (22-30) mmol/L BUN (7-17) mg/dL Creatinine (0.7-1.2) mg/dL Glucose (65-100) mg/dL POC Glucose 280 H 257 H (70-105) Calcium (8.4-10.2) mg/dL Assessment and Plan - Patient Problems (1) Altered mental status Current Visit: Yes Status: Acute (2) Septic shock Current Visit: Yes Status: Acute
[2016-08-15] MEDS: TYLENOL FEEDTUBE PRN (23:49)
[2016-08-16] MEDS: DILAUDID IV PRN ×2 (05:20→22:53)
[2016-08-16] MEDS: FLAGYL PO SCH ×3 (05:21→22:46)
[2016-08-16] MEDS: NOVOLOG SUB-Q SCH ×4 (05:30→23:50)
[2016-08-16] MEDS: DUONEB 0.5 MG-3 MG/3 ML SOLN IH SCH (08:17)
--- NOTE | 2016-08-16 09:17 | Progress Note ---
Assessment and Plan Impression: * ESRD * Sepsis * Gram neg Bacteremia * Sacral decubiti * DM type 2 * HTN * Anemia in ESRD Plan: * abx per ID * strict i/os * avoid nephrotoxins * with gram negative bactermia, s/p catheter removal * daily lytes * dailysis tthsaat initially, await new access Subjective Date of service: 08/16/16 Principal diagnosis: Polymicrobial bacteremia and sepsis; C. difficile infection Interval history: resting well in bed today Objective - Exam Narrative Exam: General appearance: Present: no acute distress - EENT Eyes: Present: PERRL, EOM intact ENT: hearing intact, clear oral mucosa, dentition normal - Neck Neck: Present: supple, normal ROM - Respiratory Respiratory effort: normal Respiratory: bilateral: CTA - Cardiovascular Rhythm: regular Heart Sounds: Present: S1 & S2. Absent: gallop, rub - Extremities Extremities: no ischemia, No edema, Full ROM - Abdominal General gastrointestinal: soft, non-tender, non-distended, normal bowel sounds - Integumentary Integumentary: Present: clear, warm, dry - Neurologic Neurologic: CNII-XII intact, moves all extremities, other (confused) - Vital Signs Vital signs: Vital Signs - 12hr 08/15/16 08/15/16 08/15/16 21:30 21:45 22:00 Temperature Pulse Rate 103 H 99 H 98 H Pulse Rate [ Anterior Bilateral Throughout] Respiratory 34 H 34 H 39 H Rate Respiratory Rate [Anterior Bilateral Throughout] Blood Pressure 131/50 131/50 124/46 O2 Sat by Pulse 94 95 93 Oximetry 08/15/16 08/15/16 08/15/16 22:06 22:15 22:30 Temperature Pulse Rate 94 H 93 H 93 H Pulse Rate [ Anterior Bilateral Throughout] Respiratory 31 H 31 H 32 H Rate Respiratory Rate [Anterior Bilateral Throughout] Blood Pressure 124/46 124/46 113/44 O2 Sat by Pulse 100 100 99 Oximetry 08/15/16 08/15/16 08/15/16 22:45 23:00 23:15 Temperature Pulse Rate 95 H 94 H 94 H Pulse Rate [ Anterior Bilateral Throughout] Respiratory 28 H 31 H 32 H Rate Respiratory Rate [Anterior Bilateral Throughout] Blood Pressure 113/44 117/47 117/47 O2 Sat by Pulse 100 99 100 Oximetry 08/15/16 08/15/16 08/15/16 23:30 23:40 23:45 Temperature Pulse Rate 93 H 95 H Pulse Rate [ 98 H Anterior Bilateral Throughout] Respiratory 29 H 28 H Rate Respiratory 29 H Rate [Anterior Bilateral Throughout] Blood Pressure 113/45 113/45 O2 Sat by Pulse 99 100 Oximetry 08/15/16 08/15/16 08/16/16 23:49 23:55 00:00 Temperature Pulse Rate 94 H Pulse Rate [ 100 H Anterior Bilateral Throughout] Respiratory 29 H 29 H Rate Respiratory 29 H Rate [Anterior Bilateral Throughout] Blood Pressure 112/45 O2 Sat by Pulse 100 Oximetry 08/16/16 08/16/16 08/16/16 00:15 00:30 00:45 Temperature Pulse Rate 94 H 92 H 92 H Pulse Rate [ Anterior Bilateral Throughout] Respiratory 27 H 27 H 28 H Rate Respiratory Rate [Anterior Bilateral Throughout] Blood Pressure 112/45 116/47 116/47 O2 Sat by Pulse 100 100 100 Oximetry 08/16/16 08/16/16 08/16/16 01:00 01:16 01:30 Temperature Pulse Rate 92 H 93 H 92 H Pulse Rate [ Anterior Bilateral Throughout] Respiratory 28 H 29 H 26 H Rate Respiratory Rate [Anterior Bilateral Throughout] Blood Pressure 110/42 116/47 109/45 O2 Sat by Pulse 100 100 100 Oximetry 08/16/16 08/16/16 08/16/16 01:46 02:00 02:16 Temperature Pulse Rate 93 H 110 H 98 H Pulse Rate [ Anterior Bilateral Throughout] Respiratory 30 H 17 28 H Rate Respiratory Rate [Anterior Bilateral Throughout] Blood Pressure 109/45 109/45 150/66 O2 Sat by Pulse 100 100 Oximetry 08/16/16 08/16/16 08/16/16 02:30 02:46 02:48 Temperature Pulse Rate 94 H 91 H 92 H Pulse Rate [ Anterior Bilateral Throughout] Respiratory 28 H 28 H 28 H Rate Respiratory Rate [Anterior Bilateral Throughout] Blood Pressure 111/47 150/66 150/66 O2 Sat by Pulse 100 100 100 Oximetry 08/16/16 08/16/16 08/16/16 03:00 03:16 03:30 Temperature Pulse Rate 91 H 91 H 93 H Pulse Rate [ Anterior Bilateral Throughout] Respiratory 26 H 25 H 27 H Rate Respiratory Rate [Anterior Bilateral Throughout] Blood Pressure 111/47 115/47 115/47 O2 Sat by Pulse 100 100 100 Oximetry 08/16/16 08/16/1608/16/16 03:46 04:00 04:15 Temperature Pulse Rate 94 H 91 H 91 H Pulse Rate [ Anterior Bilateral Throughout] Respiratory 27 H 22 24 Rate Respiratory Rate [Anterior Bilateral Throughout] Blood Pressure 115/47 112/46 112/46 O2 Sat by Pulse 100 100 100 Oximetry 08/16/16 08/16/16 08/16/16 04:30 04:46 05:00 Temperature Pulse Rate 91 H 90 91 H Pulse Rate [ Anterior Bilateral Throughout] Respiratory 25 H 25 H 26 H Rate Respiratory Rate [Anterior Bilateral Throughout] Blood Pressure 104/45 112/46 108/44 O2 Sat by Pulse 100 100 100 Oximetry 08/16/16 08/16/16 08/16/16 05:16 05:30 05:46 Temperature Pulse Rate 91 H 87 85 Pulse Rate [ Anterior Bilateral Throughout] Respiratory 25 H 23 20 Rate Respiratory Rate [Anterior Bilateral Throughout] Blood Pressure 108/44 112/46 112/46 O2 Sat by Pulse 100 100 100 Oximetry 08/16/16 08/16/16 08/16/16 06:00 06:16 06:30 Temperature Pulse Rate 83 85 84 Pulse Rate [ Anterior Bilateral Throughout] Respiratory 19 25 H 25 H Rate Respiratory Rate [Anterior Bilateral Throughout] Blood Pressure 102/42 102/42 104/45 O2 Sat by Pulse 100 100 100 Oximetry 08/16/16 08/16/16 08/16/16 06:46 07:00 07:16 Temperature Pulse Rate 85 84 83 Pulse Rate [ Anterior Bilateral Throughout] Respiratory 25 H 22 22 Rate Respiratory Rate [Anterior Bilateral Throughout] Blood Pressure 104/45 106/45 106/45 O2 Sat by Pulse 100 100 100 Oximetry 08/16/16 08/16/16 08/16/16 07:30 07:35 08:17 Temperature 99.4 F Pulse Rate 84 Pulse Rate [ 84 Anterior Bilateral Throughout] Respiratory 19 Rate Respiratory 22 Rate [Anterior Bilateral Throughout] Blood Pressure 103/43 O2 Sat by Pulse 100 Oximetry 08/16/16 08:18 Temperature Pulse Rate Pulse Rate [ Anterior Bilateral Throughout] Respiratory Rate Respiratory Rate [Anterior Bilateral Throughout] Blood Pressure O2 Sat by Pulse 100 Oximetry - Lab 08/15/16 06:00 08/15/16 06:00 Most recent lab results Calcium 8.3 mg/dL (8.4-10.2) L 08/15/16 06:00 Magnesium 2.2 mg/dL (1.7-2.3) 08/11/16 15:28
[2016-08-16 09:31] LABS: Hematocrit 24.7 % (30.3-42.9); Hemoglobin 7.9 gm/dl (10.1-14.3); Mean Corpuscular HGB Conc 32 % (30-34); Mean Corpuscular Hemoglobin 29 pg (28-32); Mean Corpuscular Volume 89 fl (79-97); Platelet Count 260 K/mm3 (140-440); Red Blood Count 2.78 M/mm3 (3.65-5.03); Red Cell Distribution Width 18.5 % (13.2-15.2)
[2016-08-16 09:34] LABS: White Blood Count 35.1 K/mm3 (4.5-11.0)
[2016-08-16 09:53] LABS: BUN/Creatinine Ratio 18.78; Calcium 7.7 mg/dL (8.4-10.2); Chloride 100.9 mmol/L (98-107); Potassium 3.5 mmol/L (3.6-5.0)
--- NOTE | 2016-08-16 09:54 | Event Note ---
Date: 08/16/16 65 year old female with left IJ permcath infection and an element of tunnel infection on pressors. Once BCx neg and afebrile x 48 hrs, can consider replacement of a hemodialysis catheter. Will plan on catheter placement early the upcoming week. If patient requires more urgent hemodialysis, then please contact [facility].
--- NOTE | 2016-08-16 10:01 | Progress Note ---
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 Patient is currently on blood pressure support. Admitting blood cultures are growing blood cultures Gram positive cocci in pairs and Gram negative rods. Problem list: 1. Polymicrobial bacteremia and sepsis -08/11 blood cultures with 4/4 bottles with ESBL Klebsiella pneumoniae and Vancomycin resistant Enterococcus faecium -Suspect that the left chest wall permacath is infected. 2. C. diff. infection -Toxin assay positive 08/13 3. Leukocytosis -Marked elevation to 51,000 -Multifactorial with bacteremia & C diff infection -Trending downward. 4. Presacral pressure sore -Uninfected at present 5. End-stage renal failure -Left chest PermCath 6. Status post right hemispheral stroke -Left hemiplegia 7. Lactic acidosis -Secondary to #1 -Improving on current treatment 8. Type 2 DM PLAN: 1. Continue Meropenem 2. Will change vancomycin to linezolid versus the VRE 3. Continue enteral Flagyl vs C diff infection 4. Glycemic control as per the primary team 5. Will recheck blood cultures now that dialysis catheter was removed 6. C. difficile & VRE isolation precautions Arash Bennett MD [facility] Office: [phone] Subjective Date of service: 08/16/16 Principal diagnosis: Polymicrobial bacteremia and sepsis; C. difficile infection Interval history: No obvious complaints. No acute distress. Remains confused and somewhat agitated. Status post dialysis catheter removal 08/15. Objective - Exam Narrative Exam: GENERAL: Well-developed, chronically ill-appearing female who is alert and in no acute distress. HEENT: Pupils are equal reactive to light and accommodation. Conjunctiva clear. Bilateral arcus senilis. Oropharynx is normal with no evidence of oral candidiasis or pharyngitis. Patient is edentulous. NECK: Supple. No enlargement of the thyroid gland. No significant cervical lymphadenopathy. No jugular venous distention at 30. LUNGS: Clear with no adventitious sounds. CHEST: Previous left vas cath with no signs of infection. Not tender to palpation and no drainage visible. HEART: Regular rate. S1 and S2 are normal. There are no gallops, clicks or rubs heard. II/ JOSEPHINE heard best over the LUSB. No diastolic murmur. ABDOMEN: Soft and nontender. Liver and spleen are not palpably enlarged or tender. No palpable masses. Bowel sounds are normoactive. PEG site is clean with no signs of infection. : Normal external female. No Rico catheter. EXTREMITIES: No rash, peripheral lymphadenopathy, clubbing or edema. SKIN: Bilateral ill pressure sores R > L without signs of secondary infection. Stage II sacral pressure sore with no signs of infection but contaminated with liquid stool. NEUROLOGIC: Left hemiplegia. Alert. Oriented to person only. - Constitutional Vitals: Vital Signs Temp Pulse Resp BP Pulse Ox 99.4 F 84 22 103/43 100 08/16/16 07:35 08/16/16 08:17 08/16/16 08:17 08/16/16 07:30 08/16/16 08:18 Temperature -Last 24 Hours Temperature 99.4 F Temperature 100 F Temperature 99 F Temperature 99 F - Labs CBC & Chem 7: 08/16/16 09:20 08/16/16 09:20 Labs: Abnormal lab results Micro: 08/12/16 11:41 Vascular Cath Blood Culture - Preliminary Klebsiella Pneumoniae (ESBL strain, quinolone resistant, carbapenem sensitive) Enterococcus faecium (Vancomycin resistant) 08/12/16 11:41 Peripheral/Venous Blood Culture - 2/2 bottles with Enterococcus faecium (Vancomycin & penicillin resistant) 08/11/16 18:31 Peripheral/Venous Blood Culture - Preliminary Klebsiella Pneumoniae Enterococcus faecium 08/11/16 18:31 Peripheral/Venous Blood Culture - Preliminary Klebsiella Pneumoniae Enterococcus faecium 08/12/16 16:55 Stool C. difficile DNA Amplification - Positive 08/12/16 16:54 Stool Stool Occult Blood (MARK) - Final
[2016-08-16] MEDS: ZYVOX PO SCH ×2 (12:46→22:47)
[2016-08-16] MEDS: PEPCID PO SCH (13:06)
[2016-08-16] MEDS: POTASSIUM CHLORIDE FEEDTUBE SCH (13:07)
[2016-08-16] MEDS: HEPARIN SUB-Q SCH ×2 (13:07→22:50)
[2016-08-16] MEDS: KEPPRA PO SCH ×2 (13:07→22:47)
[2016-08-16] MEDS: LEVOPHED DRIP 4 MG/NS 250 ML 250 ML IV SCH (13:55)
[2016-08-16] MEDS: MERREM 1,000 MG in NACL 0.9% 100 ML IV SCH (14:00)
[2016-08-16] MEDS: LEVEMIR SUB-Q SCH (15:20)
--- NOTE | 2016-08-16 16:16 | Progress Note ---
Assessment and Plan Assessment and plan: 1. Septic shock. Poly microbial sepsis, gram negative and gram positive in blood( Klebsiella and Enterococcus). Patient with a significant leukocytosis but improved. Patient currently on Levophed. Wean vasopressor support to maintain MAP greater than 65. Continue IV antibiotics ID following. Trend lactate levels. C. diff +. Permacath removed, follow up blood cultures to document clearance and replacement of HD catheter. If she continues to need vasopressor support, we may have to treat her with stress dose steroids for sepsis induced adrenal insufficiency. DVT prophylaxis Wound care to treat sacral decubitus ulcer, off loading and skin managemnt program to prevent further skin breakdown. 2. Toxic metabolic encephalopathy. Continue treating underlying causes. 3. UTI. Follow-up urine culture and continue antibiotics. 4. Diabetes mellitus, type II. Continue Accu-Cheks and sliding scale regular insulin. 5. ESRD. Nephrology consultation pending. Continue hemodialysis per nephrology. 6. Seizure disorder. Continue Keppra IV. No new activity. Seizure precautions. 7. Acute on chronic anemia of chronic disease. Etiology is unknown. Check Hemoccult of stools, iron studies, B12, folate, reticulocyte count and LDH. Patient to receive 2 units PRBCs. Follow-up H&H. 8. C. difficile colitis. Continue Flagyl. 9. Oropharyngeal dysphagia s/p PEG- Enteric feeding, glycemic control. Aspiration precautions. The high probability of a clinically significant, sudden or life threatening deterioration of the hemodynamic status required my full and direct attention, intervention and personal management. The aggregate critical care time was [32] minutes. This time is in addition to time spent performing reported procedures but includes the following: [x] Data Review and interpretation [x] Patient assessment and monitoring of vital signs [x] Documentation [x] Medication orders and management - Patient Problems (1) Septic shock Current Visit: Yes Status: Acute (2) Leukocytosis Current Visit: Yes Status: Acute (3) Clostridium difficile colitis Current Visit: Yes Status: Acute (4) Septicemia due to enterococcus Current Visit: Yes Status: Acute (5) Sepsis due to Klebsiella Current Visit: Yes Status: Acute (6) Altered mental status Current Visit: Yes Status: Acute (7) Pressure ulcer Current Visit: Yes Status: Acute Subjective Date of service: 08/16/16 Principal diagnosis: Polymicrobial bacteremia and sepsis; C. difficile infection Interval history: Continues to require vasopressor support- was off the norepinephrine for a few hours this morning. Her MAPs dropped to 50, so it had to be resumed. Femoral CVC was removed, permacath was removed: patient has a right upper extrmity PICC (double lumen) Moans and groans intermittently. No new overnight events reported or documented. patient was seen and examined. Vitals, labs, medications , chart were reviewed. Objective - Exam Narrative Exam: GENERAL: Well-developed, chronically ill-appearing female who is alert and in no acute distress. HEENT: Pupils are equal reactive to light and accommodation. Conjunctiva clear. Bilateral arcus senilis. Oropharynx is normal with no evidence of oral candidiasis or pharyngitis. Patient is edentulous. NECK: Supple. No enlargement of the thyroid gland. No significant cervical lymphadenopathy. No jugular venous distention at 30. LUNGS: Clear with no adventitious sounds. HEART: Regular rate. S1 and S2 are normal. There are no gallops, clicks or rubs heard. II/ JOSEPHINE heard best over the LUSB. No diastolic murmur. ABDOMEN: Soft and nontender. Liver and spleen are not palpably enlarged or tender. No palpable masses. Bowel sounds are normoactive. PEG site is clean with no signs of infection. : Normal external female. No Rico catheter. EXTREMITIES: No rash, peripheral lymphadenopathy, clubbing or edema. SKIN: Bilateral ill pressure sores R > L without signs of secondary infection. Stage II sacral pressure sore with no signs of infection but contaminated with liquid stool. NEUROLOGIC: Left hemiplegia. Alert. Oriented to person only. Vital Signs - 12hr 08/16/16 08/16/16 08/16/16 04:15 04:30 04:46 Temperature Pulse Rate 91 H 91 H 90 Pulse Rate [ Anterior Bilateral Throughout] Respiratory 24 25 H 25 H Rate Respiratory Rate [Anterior Bilateral Throughout] Respiratory Rate [sacrum] Blood Pressure 112/46 104/45 112/46 O2 Sat by Pulse 100 100 100 Oximetry 08/16/16 08/16/16 08/16/16 05:00 05:16 05:30 Temperature Pulse Rate 91 H 91 H 87 Pulse Rate [ Anterior Bilateral Throughout] Respiratory 26 H 25 H 23 Rate Respiratory Rate [Anterior Bilateral Throughout] Respiratory Rate [sacrum] Blood Pressure 108/44 108/44 112/46 O2 Sat by Pulse 100 100 100 Oximetry 08/16/16 08/16/16 08/16/16 05:46 06:00 06:16 Temperature Pulse Rate 85 83 85 Pulse Rate [ Anterior Bilateral Throughout] Respiratory 20 19 25 H Rate Respiratory Rate [Anterior Bilateral Throughout] Respiratory Rate [sacrum] Blood Pressure 112/46 102/42 102/42 O2 Sat by Pulse 100 100 100 Oximetry 08/16/16 08/16/16 08/16/16 06:30 06:46 07:00 Temperature Pulse Rate 84 85 84 Pulse Rate [ Anterior Bilateral Throughout] Respiratory 25 H 25 H 22 Rate Respiratory Rate [Anterior Bilateral Throughout] Respiratory Rate [sacrum] Blood Pressure 104/45 104/45 106/45 O2 Sat by Pulse 100 100 100 Oximetry 08/16/16 08/16/16 08/16/16 07:16 07:30 07:35 Temperature 99.4 F Pulse Rate 83 84 Pulse Rate [ Anterior Bilateral Throughout] Respiratory 22 19 Rate Respiratory Rate [Anterior Bilateral Throughout] Respiratory Rate [sacrum] Blood Pressure 106/45 103/43 O2 Sat by Pulse 100 100 Oximetry 08/16/16 08/16/16 08/16/16 07:42 07:46 08:00 Temperature Pulse Rate 88 86 85 Pulse Rate [ Anterior Bilateral Throughout] Respiratory 24 23 22 Rate Respiratory Rate [Anterior Bilateral Throughout] Respiratory Rate [sacrum] Blood Pressure 103/43 103/43 113/45 O2 Sat by Pulse 100 100 96 Oximetry 08/16/16 08/16/16 08/16/16 08:16 08:17 08:18 Temperature Pulse Rate 84 Pulse Rate [ 84 Anterior Bilateral Throughout] Respiratory 22 Rate Respiratory 22 Rate [Anterior Bilateral Throughout] Respiratory Rate [sacrum] Blood Pressure 113/45 O2 Sat by Pulse 100 100 Oximetry 08/16/16 08/16/16 08/16/16 08:30 08:46 09:00 Temperature Pulse Rate 88 86 92 H Pulse Rate [ Anterior Bilateral Throughout] Respiratory 23 20 29 H Rate Respiratory Rate [Anterior Bilateral Throughout] Respiratory Rate [sacrum] Blood Pressure 113/47 113/47 123/49 O2 Sat by Pulse 99 100 98 Oximetry 08/16/16 08/16/16 08/16/16 09:16 09:30 09:46 Temperature Pulse Rate 99 H 102 H 97 H Pulse Rate [ Anterior Bilateral Throughout] Respiratory 27 H 17 30 H Rate Respiratory Rate [Anterior Bilateral Throughout] Respiratory Rate [sacrum] Blood Pressure 123/49 116/46 116/46 O2 Sat by Pulse 98 97 98 Oximetry 08/16/16 08/16/16 08/16/16 10:00 10:16 10:30 Temperature Pulse Rate 94 H 95 H 95 H Pulse Rate [ Anterior Bilateral Throughout] Respiratory 28 H 30 H 28 H Rate Respiratory Rate [Anterior Bilateral Throughout] Respiratory 25 H Rate [sacrum] Blood Pressure 116/44 116/44 120/48 O2 Sat by Pulse 95 96 91 Oximetry 08/16/16 08/16/16 08/16/16 10:46 11:00 11:16 Temperature Pulse Rate 94 H 97 H 97 H Pulse Rate [ Anterior Bilateral Throughout] Respiratory 27 H 22 21 Rate Respiratory Rate [Anterior Bilateral Throughout] Respiratory Rate [sacrum] Blood Pressure 120/48 118/40 118/40 O2 Sat by Pulse 96 98 Oximetry 08/16/16 08/16/16 08/16/16 11:30 11:46 12:00 Temperature 99.2 F Pulse Rate 100 H 98 H 94 H Pulse Rate [ Anterior Bilateral Throughout] Respiratory 24 23 21 Rate Respiratory Rate [Anterior Bilateral Throughout] Respiratory Rate [sacrum] Blood Pressure 122/50 122/50 118/38 O2 Sat by Pulse 90 93 98 Oximetry 08/16/16 08/16/16 08/16/16 12:16 12:30 12:46 Temperature Pulse Rate 93 H 93 H 91 H Pulse Rate [ Anterior Bilateral Throughout] Respiratory 29 H 30 H 28 H Rate Respiratory Rate [Anterior Bilateral Throughout] Respiratory Rate [sacrum] Blood Pressure 118/38 118/38 98/38 O2 Sat by Pulse 93 98 97 Oximetry 08/16/16 08/16/16 08/16/16 13:00 13:16 13:30 Temperature Pulse Rate 95 H 98 H Pulse Rate [ Anterior Bilateral Throughout] Respiratory 30 H 32 H Rate Respiratory Rate [Anterior Bilateral Throughout] Respiratory Rate [sacrum] Blood Pressure 122/39 122/39 118/52 O2 Sat by Pulse 92 99 94 Oximetry 08/16/16 08/16/16 08/16/16 13:46 14:00 14:16 Temperature Pulse Rate 96 H 92 H 91 H Pulse Rate [ Anterior Bilateral Throughout] Respiratory 31 H 30 H 27 H Rate Respiratory Rate [Anterior Bilateral Throughout] Respiratory Rate [sacrum] Blood Pressure 118/52 110/54 110/54 O2 Sat by Pulse 94 98 97 Oximetry 08/16/16 08/16/16 08/16/16 14:30 14:46 15:00 Temperature Pulse Rate 88 88 89 Pulse Rate [ Anterior Bilateral Throughout] Respiratory 28 H 25 H 28 H Rate Respiratory Rate [Anterior Bilateral Throughout] Respiratory Rate [sacrum] Blood Pressure 101/60 101/60 91/65 O2 Sat by Pulse 96 98 97 Oximetry 08/16/16 08/16/16 15:16 15:30 Temperature Pulse Rate 96 H 94 H Pulse Rate [ Anterior Bilateral Throughout] Respiratory 16 14 Rate Respiratory Rate [Anterior Bilateral Throughout] Respiratory Rate [sacrum] Blood Pressure 91/65 113/50 O2 Sat by Pulse 98 99 Oximetry Constitutional: lethargic Eyes: non-icteric ENT: oropharynx moist Neck: supple Effort: normal Ascultation: Bilateral: diminished breath sounds Cardiovascular: regular rate and rhythm Gastrointestinal: normoactive bowel sounds CBC and BMP: 08/16/16 09:20 08/16/16 09:20 ABG, PT/INR, D-dimer: ABG POC ABG pH 7.444 (7.35-7.45) 08/12/16 15:23 POC ABG pCO2 29.4 (35-45) L 08/12/16 15:23 POC ABG pO2 51 (80-105) L 08/12/16 15:23 POC ABG HCO3 20.2 08/12/16 15:23 POC ABG Total CO2 21 08/12/16 15:23 POC ABG O2 Sat 88 08/12/16 15:23 PT/INR, D-dimer D-Dimer 5042.20 ng/mlDDU (0-234) H 08/12/16 16:18 Abnormal lab findings: Abnormal Labs 08/11/16 08/11/16 08/12/16 19:45 23:01 02:35 WBC RBC Hgb Hct RDW Seg Neuts % (Manual) Lymphocytes % (Manual) Monocytes % (Manual) Seg Neutrophils # Man Monocytes # (Manual) Eosinophils # (Manual) D-Dimer POC ABG pCO2 POC ABG pO2 Sodium Potassium Chloride Carbon Dioxide BUN Creatinine Glucose POC Glucose 307 H Lactic Acid 3.5 H* Calcium TIBC Ferritin Lactate Dehydrogenase Vitamin B12 Crossmatch See Detail 08/12/16 08/12/16 08/12/16 05:30 05:30 11:09 WBC 38.6 H RBC 3.14 L Hgb 8.7 L Hct 28.1 L D RDW 18.3 H Seg Neuts % (Manual) Lymphocytes % (Manual) 9.0 L Monocytes % (Manual) 8.0 H Seg Neutrophils # Man 16.6 H Monocytes # (Manual) 3.1 H Eosinophils # (Manual) 1.2 H D-Dimer POC ABG pCO2 POC ABG pO2 Sodium 133 L Potassium 3.0 L Chloride 92.4 L Carbon Dioxide 21 L BUN 44 H Creatinine 2.3 H Glucose 270 H POC Glucose 247 H Lactic Acid Calcium 8.2 L TIBC Ferritin Lactate Dehydrogenase Vitamin B12 Crossmatch 08/12/16 08/12/16 08/12/16 12:16 12:16 12:16 WBC RBC Hgb Hct RDW Seg Neuts % (Manual) Lymphocytes % (Manual) Monocytes % (Manual) Seg Neutrophils # Man Monocytes # (Manual) Eosinophils # (Manual) D-Dimer POC ABG pCO2 POC ABG pO2 Sodium Potassium Chloride Carbon Dioxide BUN Creatinine Glucose POC Glucose Lactic Acid Calcium TIBC Ferritin 2000.0 H Lactate Dehydrogenase 276 H Vitamin B12 1117 H Crossmatch 08/12/16 08/12/16 08/12/16 12:16 15:23 16:18 WBC RBC Hgb Hct RDW Seg Neuts % (Manual) Lymphocytes % (Manual) Monocytes % (Manual) Seg Neutrophils # Man Monocytes # (Manual) Eosinophils # (Manual) D-Dimer 5042.20 H POC ABG pCO2 29.4 L POC ABG pO2 51 L Sodium Potassium Chloride Carbon Dioxide BUN Creatinine Glucose POC Glucose Lactic Acid Calcium TIBC 101 L Ferritin Lactate Dehydrogenase Vitamin B12 Crossmatch 08/12/16 08/12/16 08/13/16 17:45 23:36 06:58 WBC RBC Hgb Hct RDW Seg Neuts % (Manual) Lymphocytes % (Manual) Monocytes % (Manual) Seg Neutrophils # Man Monocytes # (Manual) Eosinophils # (Manual) D-Dimer POC ABG pCO2 POC ABG pO2 Sodium Potassium Chloride Carbon Dioxide BUN Creatinine Glucose POC Glucose 196 H 170 H 199 H Lactic Acid Calcium TIBC Ferritin Lactate Dehydrogenase Vitamin B12 Crossmatch 08/13/16 08/13/16 08/13/16 11:25 16:29 21:10 WBC RBC Hgb Hct RDW Seg Neuts % (Manual) Lymphocytes % (Manual) Monocytes % (Manual) Seg Neutrophils # Man Monocytes # (Manual) Eosinophils # (Manual) D-Dimer POC ABG pCO2 POC ABG pO2 Sodium Potassium Chloride Carbon Dioxide BUN Creatinine Glucose POC Glucose 267 H 277 H 203 H Lactic Acid Calcium TIBC Ferritin Lactate Dehydrogenase Vitamin B12 Crossmatch 08/13/16 08/13/16 08/14/16 Unknown Unknown 07:42 WBC 30.0 H RBC 2.75 L Hgb 7.8 L Hct 24.0 L RDW 18.4 H Seg Neuts % (Manual) 75.0 H Lymphocytes % (Manual) 7.0 L Monocytes % (Manual) Seg Neutrophils # Man 22.5 H Monocytes # (Manual) Eosinophils # (Manual) D-Dimer POC ABG pCO2 POC ABG pO2 Sodium 133 L Potassium 3.4 L Chloride 95.2 L Carbon Dioxide 18 L BUN 58 H Creatinine 2.9 H Glucose 201 H POC Glucose 306 H Lactic Acid Calcium 8.2 L TIBC Ferritin Lactate Dehydrogenase Vitamin B12 Crossmatch 08/14/16 08/14/16 08/14/16 08:26 08:26 11:19 WBC 28.9 H RBC 2.92 L Hgb 8.2 L Hct 25.9 L RDW 18.8 H Seg Neuts % (Manual) 85.5 H Lymphocytes % (Manual) 4.5 L Monocytes % (Manual) Seg Neutrophils # Man 24.7 H Monocytes # (Manual) 0.9 H Eosinophils # (Manual) D-Dimer POC ABG pCO2 POC ABG pO2 Sodium Potassium Chloride Carbon Dioxide 15 L BUN 77 H Creatinine 3.5 H Glucose 289 H POC Glucose 274 H Lactic Acid Calcium 8.3 L TIBC Ferritin Lactate Dehydrogenase Vitamin B12 Crossmatch 08/14/16 08/14/16 08/15/16 15:56 21:12 06:00 WBC 30.1 H RBC 2.67 L Hgb 7.8 L Hct 23.4 L RDW 18.4 H Seg Neuts % (Manual) 86.0 H Lymphocytes % (Manual) 4.0 L Monocytes % (Manual) Seg Neutrophils # Man 25.9 H Monocytes # (Manual) 1.8 H Eosinophils # (Manual) D-Dimer POC ABG pCO2 POC ABG pO2 Sodium Potassium Chloride Carbon Dioxide BUN Creatinine Glucose POC Glucose 284 H 357 H Lactic Acid Calcium TIBC Ferritin Lactate Dehydrogenase Vitamin B12 Crossmatch 08/15/16 08/15/16 08/15/16 06:00 11:17 16:43 WBC RBC Hgb Hct RDW Seg Neuts % (Manual) Lymphocytes % (Manual) Monocytes % (Manual) Seg Neutrophils # Man Monocytes # (Manual) Eosinophils # (Manual) D-Dimer POC ABG pCO2 POC ABG pO2 Sodium Potassium 3.5 L Chloride 96.6 L Carbon Dioxide 21 L BUN 51 H Creatinine 2.6 H Glucose 214 H POC Glucose 280 H 257 H Lactic Acid Calcium 8.3 L TIBC Ferritin Lactate Dehydrogenase Vitamin B12 Crossmatch 08/15/16 08/16/16 08/16/16 23:40 05:25 07:20 WBC RBC Hgb Hct RDW Seg Neuts % (Manual) Lymphocytes % (Manual) Monocytes % (Manual) Seg Neutrophils # Man Monocytes # (Manual) Eosinophils # (Manual) D-Dimer POC ABG pCO2 POC ABG pO2 Sodium Potassium Chloride Carbon Dioxide BUN Creatinine Glucose POC Glucose 179 H 140 H 147 H Lactic Acid Calcium TIBC Ferritin Lactate Dehydrogenase Vitamin B12 Crossmatch 08/16/16 08/16/16 08/16/16 09:20 09:20 11:28 WBC 35.1 H RBC 2.78 L Hgb 7.9 L Hct 24.7 L RDW 18.5 H Seg Neuts % (Manual) Lymphocytes % (Manual) Monocytes % (Manual) Seg Neutrophils # Man Monocytes # (Manual) Eosinophils # (Manual) D-Dimer POC ABG pCO2 POC ABG pO2 Sodium 136 L Potassium 3.5 L Chloride Carbon Dioxide 17 L BUN 62 H Creatinine 3.3 H Glucose 128 H POC Glucose 150 H Lactic Acid Calcium 7.7 L TIBC Ferritin Lactate Dehydrogenase Vitamin B12 Crossmatch 08/16/16 15:39 WBC RBC Hgb Hct RDW Seg Neuts % (Manual) Lymphocytes % (Manual) Monocytes % (Manual) Seg Neutrophils # Man Monocytes # (Manual) Eosinophils # (Manual) D-Dimer POC ABG pCO2 POC ABG pO2 Sodium Potassium Chloride Carbon Dioxide BUN Creatinine Glucose POC Glucose 106 H Lactic Acid Calcium TIBC Ferritin Lactate Dehydrogenase Vitamin B12 Crossmatch Allied health notes reviewed: nursing
--- NOTE | 2016-08-16 17:09 | Progress Note ---
Assessment and Plan - Patient Problems (1) Altered mental status Current Visit: Yes Status: Acute (2) Septic shock Current Visit: Yes Status: Acute Subjective Date of service: 08/16/16 Principal diagnosis: Polymicrobial bacteremia and sepsis; C. difficile infection Objective - Constitutional Vitals: Vital Signs - 12hr 08/16/16 08/16/16 08/16/16 05:16 05:30 05:46 Temperature Pulse Rate 91 H 87 85 Pulse Rate [ Anterior Bilateral Throughout] Respiratory 25 H 23 20 Rate Respiratory Rate [Anterior Bilateral Throughout] Respiratory Rate [sacrum] Blood Pressure 108/44 112/46 112/46 O2 Sat by Pulse 100 100 100 Oximetry 08/16/16 08/16/16 08/16/16 06:00 06:16 06:30 Temperature Pulse Rate 83 85 84 Pulse Rate [ Anterior Bilateral Throughout] Respiratory 19 25 H 25 H Rate Respiratory Rate [Anterior Bilateral Throughout] Respiratory Rate [sacrum] Blood Pressure 102/42 102/42 104/45 O2 Sat by Pulse 100 100 100 Oximetry 08/16/16 08/16/16 08/16/16 06:46 07:00 07:16 Temperature Pulse Rate 85 84 83 Pulse Rate [ Anterior Bilateral Throughout] Respiratory 25 H 22 22 Rate Respiratory Rate [Anterior Bilateral Throughout] Respiratory Rate [sacrum] Blood Pressure 104/45 106/45 106/45 O2 Sat by Pulse 100 100 100 Oximetry 08/16/16 08/16/16 08/16/16 07:30 07:35 07:42 Temperature 99.4 F Pulse Rate 84 88 Pulse Rate [ Anterior Bilateral Throughout] Respiratory 19 24 Rate Respiratory Rate [Anterior Bilateral Throughout] Respiratory Rate [sacrum] Blood Pressure 103/43 103/43 O2 Sat by Pulse 100 100 Oximetry 08/16/16 08/16/16 08/16/16 07:46 08:00 08:16 Temperature Pulse Rate 86 85 84 Pulse Rate [ Anterior Bilateral Throughout] Respiratory 23 22 22 Rate Respiratory Rate [Anterior Bilateral Throughout] Respiratory Rate [sacrum] Blood Pressure 103/43 113/45 113/45 O2 Sat by Pulse 100 96 100 Oximetry 08/16/16 08/16/16 08/16/16 08:17 08:18 08:30 Temperature Pulse Rate 88 Pulse Rate [ 84 Anterior Bilateral Throughout] Respiratory 23 Rate Respiratory 22 Rate [Anterior Bilateral Throughout] Respiratory Rate [sacrum] Blood Pressure 113/47 O2 Sat by Pulse 100 99 Oximetry 08/16/16 08/16/16 08/16/16 08:46 09:00 09:16 Temperature Pulse Rate 86 92 H 99 H Pulse Rate [ Anterior Bilateral Throughout] Respiratory 20 29 H 27 H Rate Respiratory Rate [Anterior Bilateral Throughout] Respiratory Rate [sacrum] Blood Pressure 113/47 123/49 123/49 O2 Sat by Pulse 100 98 98 Oximetry 08/16/16 08/16/16 08/16/16 09:30 09:46 10:00 Temperature Pulse Rate 102 H 97 H 94 H Pulse Rate [ Anterior Bilateral Throughout] Respiratory 17 30 H 28 H Rate Respiratory Rate [Anterior Bilateral Throughout] Respiratory 25 H Rate [sacrum] Blood Pressure 116/46 116/46 116/44 O2 Sat by Pulse 97 98 95 Oximetry 08/16/16 08/16/16 08/16/16 10:16 10:30 10:46 Temperature Pulse Rate 95 H 95 H 94 H Pulse Rate [ Anterior Bilateral Throughout] Respiratory 30 H 28 H 27 H Rate Respiratory Rate [Anterior Bilateral Throughout] Respiratory Rate [sacrum] Blood Pressure 116/44 120/48 120/48 O2 Sat by Pulse 96 91 96 Oximetry 08/16/16 08/16/16 08/16/16 11:00 11:16 11:30 Temperature Pulse Rate 97 H 97 H 100 H Pulse Rate [ Anterior Bilateral Throughout] Respiratory 22 21 24 Rate Respiratory Rate [Anterior Bilateral Throughout] Respiratory Rate [sacrum] Blood Pressure 118/40 118/40 122/50 O2 Sat by Pulse 98 90 Oximetry 08/16/16 08/16/16 08/16/16 11:46 12:00 12:16 Temperature 99.2 F Pulse Rate 98 H 94 H 93 H Pulse Rate [ Anterior Bilateral Throughout] Respiratory 23 21 29 H Rate Respiratory Rate [Anterior Bilateral Throughout] Respiratory Rate [sacrum] Blood Pressure 122/50 118/38 118/38 O2 Sat by Pulse 93 98 93 Oximetry 08/16/16 08/16/16 08/16/16 12:30 12:46 13:00 Temperature Pulse Rate 93 H 91 H 95 H Pulse Rate [ Anterior Bilateral Throughout] Respiratory 30 H 28 H 30 H Rate Respiratory Rate [Anterior Bilateral Throughout] Respiratory Rate [sacrum] Blood Pressure 118/38 98/38 122/39 O2 Sat by Pulse 98 97 92 Oximetry 08/16/16 08/16/16 08/16/16 13:16 13:30 13:46 Temperature Pulse Rate 98 H 96 H Pulse Rate [ Anterior Bilateral Throughout] Respiratory 32 H 31 H Rate Respiratory Rate [Anterior Bilateral Throughout] Respiratory Rate [sacrum] Blood Pressure 122/39 118/52 118/52 O2 Sat by Pulse 99 94 94 Oximetry 08/16/16 08/16/16 08/16/16 14:00 14:16 14:30 Temperature Pulse Rate 92 H 91 H 88 Pulse Rate [ Anterior Bilateral Throughout] Respiratory 30 H 27 H 28 H Rate Respiratory Rate [Anterior Bilateral Throughout] Respiratory Rate [sacrum] Blood Pressure 110/54 110/54 101/60 O2 Sat by Pulse 98 97 96 Oximetry 08/16/16 08/16/16 08/16/16 14:46 15:00 15:16 Temperature Pulse Rate 88 89 96 H Pulse Rate [ Anterior Bilateral Throughout] Respiratory 25 H 28 H 16 Rate Respiratory Rate [Anterior Bilateral Throughout] Respiratory Rate [sacrum] Blood Pressure 101/60 91/65 91/65 O2 Sat by Pulse 98 97 98 Oximetry 08/16/16 08/16/16 15:30 16:00 Temperature 98.3 F Pulse Rate 94 H Pulse Rate [ Anterior Bilateral Throughout] Respiratory 14 Rate Respiratory Rate [Anterior Bilateral Throughout] Respiratory Rate [sacrum] Blood Pressure 113/50 O2 Sat by Pulse 99 Oximetry General appearance: Present: no acute distress, well-nourished - EENT Eyes: PERRL, EOM intact ENT: hearing intact, clear oral mucosa Ears: bilateral: normal - Neck Neck: supple, normal ROM - Respiratory Respiratory effort: normal Respiratory: bilateral: CTA - Breasts Breasts: normal - Cardiovascular Rhythm: regular Heart Sounds: Present: S1 & S2. Absent: gallop, rub Extremities: pulses intact, No edema, normal color, Full ROM - Gastrointestinal General gastrointestinal: Present: soft, non-tender, non-distended, normal bowel sounds - Genitourinary Female genitourinary: normal - Integumentary Integumentary: clear, warm, dry - Musculoskeletal Musculoskeletal: 1, strength equal bilaterally - Neurologic Neurologic: moves all extremities - Psychiatric Psychiatric: memory intact, appropriate mood/affect, intact judgment & insight - Labs CBC & Chem 7: 08/16/16 09:20 08/16/16 09:20 Labs: Abnormal lab results 08/15/16 08/16/1616 Range/Units 23:40 05:25 07:20 WBC (4.5-11.0) K/mm3 RBC (3.65-5.03) M/mm3 Hgb (10.1-14.3) gm/dl Hct (30.3-42.9) % RDW (13.2-15.2) % Sodium (137-145) mmol/L Potassium (3.6-5.0) mmol/L Carbon Dioxide (22-30) mmol/L BUN (7-17) mg/dL Creatinine (0.7-1.2) mg/dL Glucose (65-100) mg/dL POC Glucose 179 H 140 H 147 H (70-105) Calcium (8.4-10.2) mg/dL 08/16/16 08/16/16 08/16/16 Range/Units 09:20 09:20 11:28 WBC 35.1 H (4.5-11.0) K/mm3 RBC 2.78 L (3.65-5.03) M/mm3 Hgb 7.9 L (10.1-14.3) gm/dl Hct 24.7 L (30.3-42.9) % RDW 18.5 H (13.2-15.2) % Sodium 136 L (137-145) mmol/L Potassium 3.5 L (3.6-5.0) mmol/L Carbon Dioxide 17 L (22-30) mmol/L BUN 62 H (7-17) mg/dL Creatinine 3.3 H (0.7-1.2) mg/dL Glucose 128 H (65-100) mg/dL POC Glucose 150 H (70-105) Calcium 7.7 L (8.4-10.2) mg/dL 08/16/16 Range/Units 15:39 WBC (4.5-11.0) K/mm3 RBC (3.65-5.03) M/mm3 Hgb (10.1-14.3) gm/dl Hct (30.3-42.9) % RDW (13.2-15.2) % Sodium (137-145) mmol/L Potassium (3.6-5.0) mmol/L Carbon Dioxide (22-30) mmol/L BUN (7-17) mg/dL Creatinine (0.7-1.2) mg/dL Glucose (65-100) mg/dL POC Glucose 106 H (70-105) Calcium (8.4-10.2) mg/dL
[2016-08-17] MEDS: DUONEB 0.5 MG-3 MG/3 ML SOLN IH SCH ×4 (00:09→23:59)
[2016-08-17] MEDS: DILAUDID IV PRN ×2 (05:00→15:49)
[2016-08-17] MEDS: FLAGYL PO SCH ×4 (05:01→23:30)
[2016-08-17] MEDS: NOVOLOG SUB-Q SCH ×3 (05:09→18:04)
[2016-08-17 08:50] LABS: Hematocrit 25.8 % (30.3-42.9); Hemoglobin 8.3 gm/dl (10.1-14.3); Mean Corpuscular HGB Conc 32 % (30-34); Mean Corpuscular Hemoglobin 29 pg (28-32); Mean Corpuscular Volume 89 fl (79-97); Platelet Count 292 K/mm3 (140-440); Red Blood Count 2.91 M/mm3 (3.65-5.03); Red Cell Distribution Width 18.5 % (13.2-15.2)
--- NOTE | 2016-08-17 08:54 | Progress Note ---
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 Patient is currently on blood pressure support. Admitting blood cultures are growing blood cultures Gram positive cocci in pairs and Gram negative rods. Problem list: 1. Polymicrobial bacteremia and sepsis -08/16 blood cultures with gram-positive cocci in pairs (4 of 4 bottles) -08/11 blood cultures with 4/4 bottles with ESBL Klebsiella pneumoniae and Vancomycin resistant Enterococcus faecium -Suspect that the left chest wall permacath is infected. ( Cath tip removed - culture pending) 2. C. diff. infection -Toxin assay positive 08/13 3. Leukocytosis -Marked elevation to 51,000 -Multifactorial with bacteremia & C diff infection -Trending downward. 4. Presacral pressure sore -Uninfected at present 5. End-stage renal failure -Left chest PermCath 6. Status post right hemispheral stroke -Left hemiplegia 7. Lactic acidosis -Secondary to #1 -Improving on current treatment 8. Type 2 DM PLAN: 1. Continue Meropenem 2. Continue linezolid versus the VRE 3. Continue enteral Flagyl vs C diff infection 4. Glycemic control as per the primary team 5. Await further identification of positive blood cultures from 08/16 ( ? Persistent VRE) 6. PC tip culture pending 6. C. difficile & VRE isolation precautions Subjective Date of service: 08/17/16 Principal diagnosis: Polymicrobial bacteremia and sepsis; C. difficile infection Interval history: No specific complaints. Objective - Exam Narrative Exam: Awake. No distress. Afebrile this a.m. HEENT: Pupils are equal reactive to light and accommodation. Conjunctiva clear. Oropharynx is not well seen. NG tube in place. NECK: Supple. No enlargement of the thyroid gland. No significant cervical lymphadenopathy. No jugular venous distention at 30. LUNGS: Rhonchi scattered HEART: Regular rate. S1 and S2 are normal. There are no murmurs, gallops, clicks or rubs heard. ABDOMEN: Soft and nontender. Liver and spleen are not palpably enlarged or tender. No palpable masses. Bowel sounds are normoactive. EXTREMITIES: No rash, peripheral lymphadenopathy, clubbing or edema. Left foot dressing not removed. SKIN: No other rash, ulcers or wounds. NEUROLOGIC: No focal findings. Oriented to name and the fact that she is in the hospital. - Constitutional Vitals: Vital Signs Temp Pulse Resp BP Pulse Ox 97.6 F 93 H 20 97/29 95 08/17/16 08:00 08/17/16 08:46 08/17/16 08:46 08/17/16 08:46 08/17/16 08:46 Temperature -Last 24 Hours Temperature 97.6 F Temperature 98.4 F Temperature 97.7 F Temperature 99.9 F Temperature 98.3 F Temperature 99.2 F - Labs CBC & Chem 7: 08/17/16 08:40 08/16/16 09:20 Labs: Abnormal lab results 08/16/16 08/16/16 08/16/16 Range/Units 09:20 09:20 11:28 WBC 35.1 H (4.5-11.0) K/mm3 RBC 2.78 L (3.65-5.03) M/mm3 Hgb 7.9 L (10.1-14.3) gm/dl Hct 24.7 L (30.3-42.9) % RDW 18.5 H (13.2-15.2) % Sodium 136 L (137-145) mmol/L Potassium 3.5 L (3.6-5.0) mmol/L Carbon Dioxide 17 L (22-30) mmol/L BUN 62 H (7-17) mg/dL Creatinine 3.3 H (0.7-1.2) mg/dL Glucose 128 H (65-100) mg/dL POC Glucose 150 H (70-105) Calcium 7.7 L (8.4-10.2) mg/dL 08/16/16 08/16/16 08/17/16 Range/Units 15:39 23:45 05:03 WBC (4.5-11.0) K/mm3 RBC (3.65-5.03) M/mm3 Hgb (10.1-14.3) gm/dl Hct (30.3-42.9) % RDW (13.2-15.2) % Sodium (137-145) mmol/L Potassium (3.6-5.0) mmol/L Carbon Dioxide (22-30) mmol/L BUN (7-17) mg/dL Creatinine (0.7-1.2) mg/dL Glucose (65-100) mg/dL POC Glucose 106 H 156 H 287 H (70-105) Calcium (8.4-10.2) mg/dL 08/17/16 Range/Units 08:40 WBC 37.0 H (4.5-11.0) K/mm3 RBC 2.91 L (3.65-5.03) M/mm3 Hgb 8.3 L (10.1-14.3) gm/dl Hct 25.8 L (30.3-42.9) % RDW 18.5 H (13.2-15.2) % Sodium (137-145) mmol/L Potassium (3.6-5.0) mmol/L Carbon Dioxide (22-30) mmol/L BUN (7-17) mg/dL Creatinine (0.7-1.2) mg/dL Glucose (65-100) mg/dL POC Glucose (70-105) Calcium (8.4-10.2) mg/dL
[2016-08-17 09:12] LABS: BUN/Creatinine Ratio 19.5; Calcium 8.3 mg/dL (8.4-10.2)
[2016-08-17 09:13] LABS: Potassium 4.5 mmol/L (3.6-5.0)
[2016-08-17] MEDS: PEPCID PO SCH (09:32)
[2016-08-17] MEDS: KEPPRA PO SCH ×2 (09:32→22:31)
[2016-08-17] MEDS: ZYVOX PO SCH ×2 (09:32→22:31)
[2016-08-17] MEDS: LEVEMIR SUB-Q SCH (09:33)
[2016-08-17] MEDS: HEPARIN SUB-Q SCH ×2 (09:34→22:30)
--- NOTE | 2016-08-17 09:54 | Progress Note ---
Assessment and Plan Patient awake, weak, No acute respiratory distress. Patient placed on 2 litres O2 , O2 satuaration 97% - Patient Problems (1) Sepsis due to Klebsiella Current Visit: Yes Status: Acute Plan to address problem: Patient is on Linozelid, merepenum and Metranidazole. Antibiotics as per infectious disease specialists. (2) Septic shock Current Visit: Yes Status: Acute Plan to address problem: Improving. Patient is on norepinephrine. Continue present I/V Fluids NSS. Continue present antibiotics. Linozelid, merepenum and metranidazole. Continue Hydrocortizone. (3) Clostridium difficile colitis Current Visit: Yes Status: Acute Plan to address problem: Patient is on Metranidazole. Management as per infectious diseases. (4) Altered mental status Current Visit: Yes Status: Acute Plan to address problem: Management as per primary care. (5) End stage renal disease Current Visit: Yes Status: Chronic Plan to address problem: Management as per nephrology. (6) Lactic acidosis Current Visit: Yes Status: Acute Plan to address problem: Bicarb is 16, patient compensated. Obtaining blood gases. (7) Seizure disorder Current Visit: Yes Status: Chronic Plan to address problem: Patient is on Keppra. Subjective Date of service: 08/17/16 Principal diagnosis: Polymicrobial bacteremia and sepsis; C. difficile infection Interval history: Patient awake, weak, No acute respiratory distress. Patient placed on 2 litres O2 , O2 satuaration 97% Objective Vital Signs - 12hr 08/16/16 08/16/16 08/16/16 22:00 22:16 22:30 Temperature Pulse Rate 97 H 94 H 96 H Pulse Rate [ Anterior Bilateral Throughout] Respiratory 31 H 30 H 30 H Rate Respiratory Rate [Anterior Bilateral Throughout] Respiratory Rate [sacrum] Blood Pressure 125/50 125/50 115/49 O2 Sat by Pulse 99 100 99 Oximetry 08/16/16 08/16/16 08/16/16 22:38 22:40 22:46 Temperature Pulse Rate 98 H 97 H 96 H Pulse Rate [ Anterior Bilateral Throughout] Respiratory 30 H 26 H Rate Respiratory Rate [Anterior Bilateral Throughout] Respiratory 25 H Rate [sacrum] Blood Pressure 115/49 115/49 O2 Sat by Pulse 99 99 Oximetry 08/16/16 08/16/16 08/16/16 22:53 22:54 23:00 Temperature Pulse Rate 92 H 94 H Pulse Rate [ Anterior Bilateral Throughout] Respiratory 29 H 29 H 25 H Rate Respiratory Rate [Anterior Bilateral Throughout] Respiratory Rate [sacrum] Blood Pressure 115/49 96/40 O2 Sat by Pulse 98 97 Oximetry 08/16/16 08/16/16 08/16/16 23:09 23:16 23:23 Temperature Pulse Rate 92 H 92 H Pulse Rate [ Anterior Bilateral Throughout] Respiratory 29 H 28 H 22 Rate Respiratory Rate [Anterior Bilateral Throughout] Respiratory Rate [sacrum] Blood Pressure 96/40 96/40 O2 Sat by Pulse 99 98 Oximetry 08/16/16 08/16/16 08/16/16 23:26 23:30 23:46 Temperature Pulse Rate 94 H 96 H 95 H Pulse Rate [ Anterior Bilateral Throughout] Respiratory 25 H 26 H 31 H Rate Respiratory Rate [Anterior Bilateral Throughout] Respiratory Rate [sacrum] Blood Pressure 96/40 96/40 96/40 O2 Sat by Pulse 99 98 Oximetry 08/16/16 08/16/16 08/17/16 23:47 23:50 00:00 Temperature 97.7 F Pulse Rate 96 H Pulse Rate [ Anterior Bilateral Throughout] Respiratory 28 H Rate Respiratory Rate [Anterior Bilateral Throughout] Respiratory Rate [sacrum] Blood Pressure 110/30 O2 Sat by Pulse 98 97 Oximetry 08/17/16 08/17/16 08/17/16 00:09 00:15 00:16 Temperature Pulse Rate 94 H 94 H Pulse Rate [ 99 H Anterior Bilateral Throughout] Respiratory 27 H 27 H Rate Respiratory 20 Rate [Anterior Bilateral Throughout] Respiratory Rate [sacrum] Blood Pressure 110/30 110/30 O2 Sat by Pulse 100 100 Oximetry 08/17/16 08/17/16 08/17/16 00:19 00:30 00:40 Temperature Pulse Rate 97 H 96 H Pulse Rate [ 97 H Anterior Bilateral Throughout] Respiratory 24 25 H Rate Respiratory 24 Rate [Anterior Bilateral Throughout] Respiratory Rate [sacrum] Blood Pressure 108/45 108/45 O2 Sat by Pulse 99 100 Oximetry 08/17/16 08/17/16 08/17/16 00:42 00:46 00:47 Temperature Pulse Rate 97 H 98 H 98 H Pulse Rate [ Anterior Bilateral Throughout] Respiratory 24 28 H 20 Rate Respiratory Rate [Anterior Bilateral Throughout] Respiratory Rate [sacrum] Blood Pressure 108/45 108/45 108/45 O2 Sat by Pulse 100 100 100 Oximetry 08/17/16 08/17/16 08/17/16 00:56 01:00 01:02 Temperature Pulse Rate 100 H 93 H 100 H Pulse Rate [ Anterior Bilateral Throughout] Respiratory 25 H 26 H Rate Respiratory Rate [Anterior Bilateral Throughout] Respiratory 25 H Rate [sacrum] Blood Pressure 108/45 107/41 O2 Sat by Pulse 100 98 Oximetry 08/17/16 08/17/16 08/17/16 01:14 01:16 01:30 Temperature Pulse Rate 96 H 95 H 100 H Pulse Rate [ Anterior Bilateral Throughout] Respiratory 27 H 25 H 24 Rate Respiratory Rate [Anterior Bilateral Throughout] Respiratory Rate [sacrum] Blood Pressure 107/41 107/41 107/41 O2 Sat by Pulse 100 100 99 Oximetry 08/17/16 08/17/16 08/17/16 01:46 02:00 02:14 Temperature Pulse Rate 97 H 94 H 94 H Pulse Rate [ Anterior Bilateral Throughout] Respiratory 25 H 23 23 Rate Respiratory Rate [Anterior Bilateral Throughout] Respiratory Rate [sacrum] Blood Pressure 127/64 123/34 123/34 O2 Sat by Pulse 99 96 Oximetry 08/17/16 08/17/16 08/17/16 02:15 02:16 02:17 Temperature Pulse Rate 94 H 94 H 94 H Pulse Rate [ Anterior Bilateral Throughout] Respiratory 22 23 Rate Respiratory Rate [Anterior Bilateral Throughout] Respiratory Rate [sacrum] Blood Pressure 123/34 123/34 O2 Sat by Pulse 98 96 98 Oximetry 08/17/16 08/17/16 08/17/16 02:30 02:38 02:46 Temperature Pulse Rate 95 H 93 H 95 H Pulse Rate [ Anterior Bilateral Throughout] Respiratory 21 23 25 H Rate Respiratory Rate [Anterior Bilateral Throughout] Respiratory Rate [sacrum] Blood Pressure 126/42 126/42 123/34 O2 Sat by Pulse 98 100 99 Oximetry 08/17/16 08/17/16 08/17/16 03:00 03:16 03:30 Temperature Pulse Rate 91 H 92 H 95 H Pulse Rate [ Anterior Bilateral Throughout] Respiratory 23 25 H 21 Rate Respiratory Rate [Anterior Bilateral Throughout] Respiratory Rate [sacrum] Blood Pressure 123/34 117/47 120/53 O2 Sat by Pulse 100 99 Oximetry 08/17/16 08/17/16 08/17/16 03:46 03:58 04:00 Temperature Pulse Rate 95 H 91 H 90 Pulse Rate [ Anterior Bilateral Throughout] Respiratory 21 23 21 Rate Respiratory Rate [Anterior Bilateral Throughout] Respiratory Rate [sacrum] Blood Pressure 120/53 120/53 118/45 O2 Sat by Pulse 100 100 100 Oximetry 08/17/16 08/17/16 08/17/16 04:08 04:16 04:30 Temperature Pulse Rate 90 89 98 H Pulse Rate [ Anterior Bilateral Throughout] Respiratory 21 22 23 Rate Respiratory Rate [Anterior Bilateral Throughout] Respiratory Rate [sacrum] Blood Pressure 118/45 118/45 121/47 O2 Sat by Pulse 100 100 100 Oximetry 08/17/16 08/17/16 08/17/16 04:45 04:46 05:00 Temperature 98.4 F Pulse Rate 88 88 Pulse Rate [ Anterior Bilateral Throughout] Respiratory 23 21 Rate Respiratory Rate [Anterior Bilateral Throughout] Respiratory Rate [sacrum] Blood Pressure 121/47 134/49 O2 Sat by Pulse 100 100 Oximetry 08/17/16 08/17/16 08/17/16 05:16 05:24 05:30 Temperature Pulse Rate 91 H 91 H 92 H Pulse Rate [ Anterior Bilateral Throughout] Respiratory 21 22 23 Rate Respiratory Rate [Anterior Bilateral Throughout] Respiratory Rate [sacrum] Blood Pressure 134/49 134/49 113/45 O2 Sat by Pulse 100 100 100 Oximetry 08/17/16 08/17/16 08/17/16 05:42 05:46 05:58 Temperature Pulse Rate 94 H 86 85 Pulse Rate [ Anterior Bilateral Throughout] Respiratory 22 20 18 Rate Respiratory Rate [Anterior Bilateral Throughout] Respiratory Rate [sacrum] Blood Pressure 113/45 113/45 113/45 O2 Sat by Pulse 100 100 100 Oximetry 08/17/16 08/17/16 08/17/16 06:00 06:02 06:16 Temperature Pulse Rate 86 85 89 Pulse Rate [ Anterior Bilateral Throughout] Respiratory 22 20 22 Rate Respiratory Rate [Anterior Bilateral Throughout] Respiratory Rate [sacrum] Blood Pressure 134/50 134/50 134/50 O2 Sat by Pulse 100 100 98 Oximetry 08/17/16 08/17/16 08/17/16 06:30 06:44 06:46 Temperature Pulse Rate 81 81 81 Pulse Rate [ Anterior Bilateral Throughout] Respiratory 18 19 19 Rate Respiratory Rate [Anterior Bilateral Throughout] Respiratory Rate [sacrum] Blood Pressure 134/50 109/39 109/39 O2 Sat by Pulse 100 100 100 Oximetry 08/17/16 08/17/16 08/17/16 07:00 07:16 07:30 Temperature Pulse Rate 82 83 94 H Pulse Rate [ Anterior Bilateral Throughout] Respiratory 17 18 20 Rate Respiratory Rate [Anterior Bilateral Throughout] Respiratory Rate [sacrum] Blood Pressure 118/47 118/47 115/51 O2 Sat by Pulse 100 100 96 Oximetry 08/17/16 08/17/16 08/17/16 07:40 07:46 08:00 Temperature 97.6 F Pulse Rate 91 H 97 H 99 H Pulse Rate [ Anterior Bilateral Throughout] Respiratory 21 20 20 Rate Respiratory Rate [Anterior Bilateral Throughout] Respiratory Rate [sacrum] Blood Pressure 115/51 115/51 98/32 O2 Sat by Pulse 98 98 93 Oximetry 08/17/16 08/17/16 08/17/16 08:16 08:30 08:32 Temperature Pulse Rate 98 H 95 H Pulse Rate [ Anterior Bilateral Throughout] Respiratory 19 17 Rate Respiratory Rate [Anterior Bilateral Throughout] Respiratory Rate [sacrum] Blood Pressure 98/32 98/32 O2 Sat by Pulse 97 96 98 Oximetry 08/17/16 08/17/16 08/17/16 08:36 08:46 08:48 Temperature Pulse Rate 93 H 92 H Pulse Rate [ 96 H Anterior Bilateral Throughout] Respiratory 20 20 Rate Respiratory 18 Rate [Anterior Bilateral Throughout] Respiratory Rate [sacrum] Blood Pressure 97/29 97/29 O2 Sat by Pulse 95 96 Oximetry 08/17/16 09:00 Temperature Pulse Rate 92 H Pulse Rate [ Anterior Bilateral Throughout] Respiratory 12 Rate Respiratory Rate [Anterior Bilateral Throughout] Respiratory Rate [sacrum] Blood Pressure 97/29 O2 Sat by Pulse 95 Oximetry Constitutional: no acute distress, lethargic Eyes: non-icteric ENT: oropharynx moist Neck: supple Effort: normal Ascultation: Bilateral: diminished breath sounds Cardiovascular: regular rate and rhythm Gastrointestinal: normoactive bowel sounds Extremities: no cyanosis, no edema Neurologic: pupils equal and round, unable to assess Psychiatric: depressed, other CBC and BMP: 08/17/16 08:40 08/17/16 08:40 ABG, PT/INR, D-dimer: ABG POC ABG pH 7.444 (7.35-7.45) 08/12/16 15:23 POC ABG pCO2 29.4 (35-45) L 08/12/16 15:23 POC ABG pO2 51 (80-105) L 08/12/16 15:23 POC ABG HCO3 20.2 08/12/16 15:23 POC ABG Total CO2 21 08/12/16 15:23 POC ABG O2 Sat 88 08/12/16 15:23 PT/INR, D-dimer D-Dimer 5042.20 ng/mlDDU (0-234) H 08/12/16 16:18 Abnormal lab findings: Abnormal Labs 08/11/16 08/11/16 08/12/16 19:45 23:01 02:35 WBC RBC Hgb Hct RDW Seg Neuts % (Manual) Lymphocytes % (Manual) Monocytes % (Manual) Seg Neutrophils # Man Monocytes # (Manual) Eosinophils # (Manual) D-Dimer POC ABG pCO2 POC ABG pO2 Sodium Potassium Chloride Carbon Dioxide BUN Creatinine Glucose POC Glucose 307 H Lactic Acid 3.5 H* Calcium TIBC Ferritin Lactate Dehydrogenase Vitamin B12 Crossmatch See Detail 08/12/16 08/12/16 08/12/16 05:30 05:30 11:09 WBC 38.6 H RBC 3.14 L Hgb 8.7 L Hct 28.1 L D RDW 18.3 H Seg Neuts % (Manual) Lymphocytes % (Manual) 9.0 L Monocytes % (Manual) 8.0 H Seg Neutrophils # Man 16.6 H Monocytes # (Manual) 3.1 H Eosinophils # (Manual) 1.2 H D-Dimer POC ABG pCO2 POC ABG pO2 Sodium 133 L Potassium 3.0 L Chloride 92.4 L Carbon Dioxide 21 L BUN 44 H Creatinine 2.3 H Glucose 270 H POC Glucose 247 H Lactic Acid Calcium 8.2 L TIBC Ferritin Lactate Dehydrogenase Vitamin B12 Crossmatch 08/12/16 08/12/16 08/12/16 12:16 12:16 12:16 WBC RBC Hgb Hct RDW Seg Neuts % (Manual) Lymphocytes % (Manual) Monocytes % (Manual) Seg Neutrophils # Man Monocytes # (Manual) Eosinophils # (Manual) D-Dimer POC ABG pCO2 POC ABG pO2 Sodium Potassium Chloride Carbon Dioxide BUN Creatinine Glucose POC Glucose Lactic Acid Calcium TIBC Ferritin 2000.0 H Lactate Dehydrogenase 276 H Vitamin B12 1117 H Crossmatch 08/12/16 08/12/16 08/12/16 12:16 15:23 16:18 WBC RBC Hgb Hct RDW Seg Neuts % (Manual) Lymphocytes % (Manual) Monocytes % (Manual) Seg Neutrophils # Man Monocytes # (Manual) Eosinophils # (Manual) D-Dimer 5042.20 H POC ABG pCO2 29.4 L POC ABG pO2 51 L Sodium Potassium Chloride Carbon Dioxide BUN Creatinine Glucose POC Glucose Lactic Acid Calcium TIBC 101 L Ferritin Lactate Dehydrogenase Vitamin B12 Crossmatch 08/12/16 08/12/16 08/13/16 17:45 23:36 06:58 WBC RBC Hgb Hct RDW Seg Neuts % (Manual) Lymphocytes % (Manual) Monocytes % (Manual) Seg Neutrophils # Man Monocytes # (Manual) Eosinophils # (Manual) D-Dimer POC ABG pCO2 POC ABG pO2 Sodium Potassium Chloride Carbon Dioxide BUN Creatinine Glucose POC Glucose 196 H 170 H 199 H Lactic Acid Calcium TIBC Ferritin Lactate Dehydrogenase Vitamin B12 Crossmatch 08/13/16 08/13/16 08/13/16 11:25 16:29 21:10 WBC RBC Hgb Hct RDW Seg Neuts % (Manual) Lymphocytes % (Manual) Monocytes % (Manual) Seg Neutrophils # Man Monocytes # (Manual) Eosinophils # (Manual) D-Dimer POC ABG pCO2 POC ABG pO2 Sodium Potassium Chloride Carbon Dioxide BUN Creatinine Glucose POC Glucose 267 H 277 H 203 H Lactic Acid Calcium TIBC Ferritin Lactate Dehydrogenase Vitamin B12 Crossmatch 08/13/16 08/13/16 08/14/16 Unknown Unknown 07:42 WBC 30.0 H RBC 2.75 L Hgb 7.8 L Hct 24.0 L RDW 18.4 H Seg Neuts % (Manual) 75.0 H Lymphocytes % (Manual) 7.0 L Monocytes % (Manual) Seg Neutrophils # Man 22.5 H Monocytes # (Manual) Eosinophils # (Manual) D-Dimer POC ABG pCO2 POC ABG pO2 Sodium 133 L Potassium 3.4 L Chloride 95.2 L Carbon Dioxide 18 L BUN 58 H Creatinine 2.9 H Glucose 201 H POC Glucose 306 H Lactic Acid Calcium 8.2 L TIBC Ferritin Lactate Dehydrogenase Vitamin B12 Crossmatch 08/14/16 08/14/16 08/14/16 08:26 08:26 11:19 WBC 28.9 H RBC 2.92 L Hgb 8.2 L Hct 25.9 L RDW 18.8 H Seg Neuts % (Manual) 85.5 H Lymphocytes % (Manual) 4.5 L Monocytes % (Manual) Seg Neutrophils # Man 24.7 H Monocytes # (Manual) 0.9 H Eosinophils # (Manual) D-Dimer POC ABG pCO2 POC ABG pO2 Sodium Potassium Chloride Carbon Dioxide 15 L BUN 77 H Creatinine 3.5 H Glucose 289 H POC Glucose 274 H Lactic Acid Calcium 8.3 L TIBC Ferritin Lactate Dehydrogenase Vitamin B12 Crossmatch 08/14/16 08/14/16 08/15/16 15:56 21:12 06:00 WBC 30.1 H RBC 2.67 L Hgb 7.8 L Hct 23.4 L RDW 18.4 H Seg Neuts % (Manual) 86.0 H Lymphocytes % (Manual) 4.0 L Monocytes % (Manual) Seg Neutrophils # Man 25.9 H Monocytes # (Manual) 1.8 H Eosinophils # (Manual) D-Dimer POC ABG pCO2 POC ABG pO2 Sodium Potassium Chloride Carbon Dioxide BUN Creatinine Glucose POC Glucose 284 H 357 H Lactic Acid Calcium TIBC Ferritin Lactate Dehydrogenase Vitamin B12 Crossmatch 08/15/16 08/15/16 08/15/16 06:00 11:17 16:43 WBC RBC Hgb Hct RDW Seg Neuts % (Manual) Lymphocytes % (Manual) Monocytes % (Manual) Seg Neutrophils # Man Monocytes # (Manual) Eosinophils # (Manual) D-Dimer POC ABG pCO2 POC ABG pO2 Sodium Potassium 3.5 L Chloride 96.6 L Carbon Dioxide 21 L BUN 51 H Creatinine 2.6 H Glucose 214 H POC Glucose 280 H 257 H Lactic Acid Calcium 8.3 L TIBC Ferritin Lactate Dehydrogenase Vitamin B12 Crossmatch 08/15/16 08/16/16 08/16/16 23:40 05:25 07:20 WBC RBC Hgb Hct RDW Seg Neuts % (Manual) Lymphocytes % (Manual) Monocytes % (Manual) Seg Neutrophils # Man Monocytes # (Manual) Eosinophils # (Manual) D-Dimer POC ABG pCO2 POC ABG pO2 Sodium Potassium Chloride Carbon Dioxide BUN Creatinine Glucose POC Glucose 179 H 140 H 147 H Lactic Acid Calcium TIBC Ferritin Lactate Dehydrogenase Vitamin B12 Crossmatch 08/16/16 08/16/16 08/16/16 09:20 09:20 11:28 WBC 35.1 H RBC 2.78 L Hgb 7.9 L Hct 24.7 L RDW 18.5 H Seg Neuts % (Manual) Lymphocytes % (Manual) Monocytes % (Manual) Seg Neutrophils # Man Monocytes # (Manual) Eosinophils # (Manual) D-Dimer POC ABG pCO2 POC ABG pO2 Sodium 136 L Potassium 3.5 L Chloride Carbon Dioxide 17 L BUN 62 H Creatinine 3.3 H Glucose 128 H POC Glucose 150 H Lactic Acid Calcium 7.7 L TIBC Ferritin Lactate Dehydrogenase Vitamin B12 Crossmatch 08/16/16 08/16/16 08/17/16 15:39 23:45 05:03 WBC RBC Hgb Hct RDW Seg Neuts % (Manual) Lymphocytes % (Manual) Monocytes % (Manual) Seg Neutrophils # Man Monocytes # (Manual) Eosinophils # (Manual) D-Dimer POC ABG pCO2 POC ABG pO2 Sodium Potassium Chloride Carbon Dioxide BUN Creatinine Glucose POC Glucose 106 H 156 H 287 H Lactic Acid Calcium TIBC Ferritin Lactate Dehydrogenase Vitamin B12 Crossmatch 08/17/16 08/17/16 08:40 08:40 WBC 37.0 H RBC 2.91 L Hgb 8.3 L Hct 25.8 L RDW 18.5 H Seg Neuts % (Manual) Lymphocytes % (Manual) Monocytes % (Manual) Seg Neutrophils # Man Monocytes # (Manual) Eosinophils # (Manual) D-Dimer POC ABG pCO2 POC ABG pO2 Sodium 136 L Potassium Chloride 96.0 L Carbon Dioxide 16 L BUN 78 H Creatinine 4.0 H Glucose 330 H POC Glucose Lactic Acid Calcium 8.3 L TIBC Ferritin Lactate Dehydrogenase Vitamin B12 Crossmatch Allied health notes reviewed: nursing
[2016-08-17] MEDS: POTASSIUM CHLORIDE FEEDTUBE SCH (10:00)
[2016-08-17] MEDS: MERREM 1,000 MG in NACL 0.9% 100 ML IV SCH (12:31)
--- NOTE | 2016-08-17 12:46 | Progress Note ---
Assessment and Plan - Patient Problems (1) Altered mental status Current Visit: Yes Status: Acute (2) Septic shock Current Visit: Yes Status: Acute Subjective Date of service: 08/17/16 Principal diagnosis: Polymicrobial bacteremia and sepsis; C. difficile infection Objective - Constitutional Vitals: Vital Signs - 12hr 08/17/16 08/17/16 08/17/16 00:47 00:56 01:00 Temperature Pulse Rate 98 H 100 H 93 H Pulse Rate [ Anterior Bilateral Throughout] Respiratory 20 25 H 26 H Rate Respiratory Rate [Anterior Bilateral Throughout] Respiratory Rate [sacrum] Blood Pressure 108/45 108/45 107/41 O2 Sat by Pulse 100 100 98 Oximetry 08/17/16 08/17/16 08/17/16 01:02 01:14 01:16 Temperature Pulse Rate 100 H 96 H 95 H Pulse Rate [ Anterior Bilateral Throughout] Respiratory 27 H 25 H Rate Respiratory Rate [Anterior Bilateral Throughout] Respiratory 25 H Rate [sacrum] Blood Pressure 107/41 107/41 O2 Sat by Pulse 100 100 Oximetry 08/17/16 08/17/16 08/17/16 01:30 01:46 02:00 Temperature Pulse Rate 100 H 97 H 94 H Pulse Rate [ Anterior Bilateral Throughout] Respiratory 24 25 H 23 Rate Respiratory Rate [Anterior Bilateral Throughout] Respiratory Rate [sacrum] Blood Pressure 107/41 127/64 123/34 O2 Sat by Pulse 99 99 Oximetry 08/17/16 08/17/16 08/17/16 02:14 02:15 02:16 Temperature Pulse Rate 94 H 94 H 94 H Pulse Rate [ Anterior Bilateral Throughout] Respiratory 23 22 Rate Respiratory Rate [Anterior Bilateral Throughout] Respiratory Rate [sacrum] Blood Pressure 123/34 123/34 O2 Sat by Pulse 96 98 96 Oximetry 08/17/16 08/17/16 08/17/16 02:17 02:30 02:38 Temperature Pulse Rate 94 H 95 H 93 H Pulse Rate [ Anterior Bilateral Throughout] Respiratory 23 21 23 Rate Respiratory Rate [Anterior Bilateral Throughout] Respiratory Rate [sacrum] Blood Pressure 123/34 126/42 126/42 O2 Sat by Pulse 98 98 100 Oximetry 08/17/16 08/17/16 08/17/16 02:46 03:00 03:16 Temperature Pulse Rate 95 H 91 H 92 H Pulse Rate [ Anterior Bilateral Throughout] Respiratory 25 H 23 25 H Rate Respiratory Rate [Anterior Bilateral Throughout] Respiratory Rate [sacrum] Blood Pressure 123/34 123/34 117/47 O2 Sat by Pulse 99 100 Oximetry 08/17/16 08/17/16 08/17/16 03:30 03:46 03:58 Temperature Pulse Rate 95 H 95 H 91 H Pulse Rate [ Anterior Bilateral Throughout] Respiratory 21 21 23 Rate Respiratory Rate [Anterior Bilateral Throughout] Respiratory Rate [sacrum] Blood Pressure 120/53 120/53 120/53 O2 Sat by Pulse 99 100 100 Oximetry 08/17/16 08/17/16 08/17/16 04:00 04:08 04:16 Temperature Pulse Rate 90 90 89 Pulse Rate [ Anterior Bilateral Throughout] Respiratory 21 21 22 Rate Respiratory Rate [Anterior Bilateral Throughout] Respiratory Rate [sacrum] Blood Pressure 118/45 118/45 118/45 O2 Sat by Pulse 100 100 100 Oximetry 08/17/16 08/17/16 08/17/16 04:30 04:45 04:46 Temperature 98.4 F Pulse Rate 98 H 88 Pulse Rate [ Anterior Bilateral Throughout] Respiratory 23 23 Rate Respiratory Rate [Anterior Bilateral Throughout] Respiratory Rate [sacrum] Blood Pressure 121/47 121/47 O2 Sat by Pulse 100 100 Oximetry 08/17/16 08/17/16 08/17/16 05:00 05:16 05:24 Temperature Pulse Rate 88 91 H 91 H Pulse Rate [ Anterior Bilateral Throughout] Respiratory 21 21 22 Rate Respiratory Rate [Anterior Bilateral Throughout] Respiratory Rate [sacrum] Blood Pressure 134/49 134/49 134/49 O2 Sat by Pulse 100 100 100 Oximetry 08/17/16 08/17/16 08/17/16 05:30 05:42 05:46 Temperature Pulse Rate 92 H 94 H 86 Pulse Rate [ Anterior Bilateral Throughout] Respiratory 23 22 20 Rate Respiratory Rate [Anterior Bilateral Throughout] Respiratory Rate [sacrum] Blood Pressure 113/45 113/45 113/45 O2 Sat by Pulse 100 100 100 Oximetry 08/17/16 08/17/16 08/17/16 05:58 06:00 06:02 Temperature Pulse Rate 85 86 85 Pulse Rate [ Anterior Bilateral Throughout] Respiratory 18 22 20 Rate Respiratory Rate [Anterior Bilateral Throughout] Respiratory Rate [sacrum] Blood Pressure 113/45 134/50 134/50 O2 Sat by Pulse 100 100 100 Oximetry 08/17/16 08/17/16 08/17/16 06:16 06:30 06:44 Temperature Pulse Rate 89 81 81 Pulse Rate [ Anterior Bilateral Throughout] Respiratory 22 18 19 Rate Respiratory Rate [Anterior Bilateral Throughout] Respiratory Rate [sacrum] Blood Pressure 134/50 134/50 109/39 O2 Sat by Pulse 98 100 100 Oximetry 08/17/16 08/17/16 08/17/16 06:46 07:00 07:16 Temperature Pulse Rate 81 82 83 Pulse Rate [ Anterior Bilateral Throughout] Respiratory 19 17 18 Rate Respiratory Rate [Anterior Bilateral Throughout] Respiratory Rate [sacrum] Blood Pressure 109/39 118/47 118/47 O2 Sat by Pulse 100 100 100 Oximetry 08/17/16 08/17/16 08/17/16 07:30 07:40 07:46 Temperature Pulse Rate 94 H 91 H 97 H Pulse Rate [ Anterior Bilateral Throughout] Respiratory 20 21 20 Rate Respiratory Rate [Anterior Bilateral Throughout] Respiratory Rate [sacrum] Blood Pressure 115/51 115/51 115/51 O2 Sat by Pulse 96 98 98 Oximetry 08/17/16 08/17/16 08/17/16 08:00 08:16 08:30 Temperature 97.6 F Pulse Rate 99 H 98 H 95 H Pulse Rate [ Anterior Bilateral Throughout] Respiratory 20 19 17 Rate Respiratory Rate [Anterior Bilateral Throughout] Respiratory Rate [sacrum] Blood Pressure 98/32 98/32 98/32 O2 Sat by Pulse 93 97 96 Oximetry 08/17/16 08/17/16 08/17/16 08:32 08:36 08:46 Temperature Pulse Rate 93 H Pulse Rate [ 96 H Anterior Bilateral Throughout] Respiratory 20 Rate Respiratory 18 Rate [Anterior Bilateral Throughout] Respiratory Rate [sacrum] Blood Pressure 97/29 O2 Sat by Pulse 98 95 Oximetry 08/17/16 08/17/16 08/17/16 08:48 09:00 09:10 Temperature Pulse Rate 92 H 92 H 91 H Pulse Rate [ Anterior Bilateral Throughout] Respiratory 20 12 16 Rate Respiratory Rate [Anterior Bilateral Throughout] Respiratory Rate [sacrum] Blood Pressure 97/29 97/29 93/14 O2 Sat by Pulse 96 95 96 Oximetry 08/17/16 08/17/16 08/17/16 09:16 09:30 09:46 Temperature Pulse Rate 92 H 92 H 95 H Pulse Rate [ Anterior Bilateral Throughout] Respiratory 21 19 16 Rate Respiratory Rate [Anterior Bilateral Throughout] Respiratory Rate [sacrum] Blood Pressure 93/14 98/30 98/30 O2 Sat by Pulse 94 95 99 Oximetry 08/17/16 08/17/16 08/17/16 10:00 10:16 10:30 Temperature Pulse Rate 94 H 97 H 98 H Pulse Rate [ Anterior Bilateral Throughout] Respiratory 25 H 29 H 21 Rate Respiratory Rate [Anterior Bilateral Throughout] Respiratory 19 Rate [sacrum] Blood Pressure 98/30 101/27 85/29 O2 Sat by Pulse 92 97 98 Oximetry 08/17/16 08/17/16 08/17/16 10:46 11:00 11:15 Temperature Pulse Rate 95 H 94 H 102 H Pulse Rate [ Anterior Bilateral Throughout] Respiratory 22 22 14 Rate Respiratory Rate [Anterior Bilateral Throughout] Respiratory Rate [sacrum] Blood Pressure 85/29 85/29 125/58 O2 Sat by Pulse 97 96 Oximetry 08/17/16 08/17/16 08/17/16 11:30 11:46 12:00 Temperature 98.7 F Pulse Rate 95 H 93 H 91 H Pulse Rate [ Anterior Bilateral Throughout] Respiratory 20 18 14 Rate Respiratory Rate [Anterior Bilateral Throughout] Respiratory Rate [sacrum] Blood Pressure 125/58 133/41 105/48 O2 Sat by Pulse 100 99 96 Oximetry General appearance: Present: no acute distress, well-nourished - EENT Eyes: PERRL, EOM intact ENT: hearing intact, clear oral mucosa Ears: bilateral: normal - Neck Neck: supple, normal ROM - Respiratory Respiratory effort: normal Respiratory: bilateral: CTA - Breasts Breasts: normal - Cardiovascular Rhythm: regular Heart Sounds: Present: S1 & S2. Absent: gallop, rub Extremities: pulses intact, No edema, normal color, Full ROM - Gastrointestinal General gastrointestinal: Present: soft, non-tender, non-distended, normal bowel sounds - Genitourinary Female genitourinary: normal - Integumentary Integumentary: clear, warm, dry - Musculoskeletal Musculoskeletal: 1, strength equal bilaterally - Neurologic Neurologic: moves all extremities - Psychiatric Psychiatric: memory intact, appropriate mood/affect, intact judgment & insight - Labs CBC & Chem 7: 08/17/16 08:40 08/17/16 08:40 Labs: Abnormal lab results 08/16/16 08/16/16 08/17/16 Range/Units 15:39 23:45 05:03 WBC (4.5-11.0) K/mm3 RBC (3.65-5.03) M/mm3 Hgb (10.1-14.3) gm/dl Hct (30.3-42.9) % RDW (13.2-15.2) % Sodium (137-145) mmol/L Chloride (98-107) mmol/L Carbon Dioxide (22-30) mmol/L BUN (7-17) mg/dL Creatinine (0.7-1.2) mg/dL Glucose (65-100) mg/dL POC Glucose 106 H 156 H 287 H (70-105) Calcium (8.4-10.2) mg/dL 08/17/16 08/17/16 Range/Units 08:40 08:40 WBC 37.0 H (4.5-11.0) K/mm3 RBC 2.91 L (3.65-5.03) M/mm3 Hgb 8.3 L (10.1-14.3) gm/dl Hct 25.8 L (30.3-42.9) % RDW 18.5 H (13.2-15.2) % Sodium 136 L (137-145) mmol/L Chloride 96.0 L (98-107) mmol/L Carbon Dioxide 16 L (22-30) mmol/L BUN 78 H (7-17) mg/dL Creatinine 4.0 H (0.7-1.2) mg/dL Glucose 330 H (65-100) mg/dL POC Glucose (70-105) Calcium 8.3 L (8.4-10.2) mg/dL
[2016-08-17] MEDS ORDERED: D50W (25GM) IV ONE ×2 (15:39→15:42)
--- NOTE | 2016-08-17 17:18 | Progress Note ---
Assessment and Plan Impression: * ESRD * Catheter related bacteremia, enterococcus faecium, klebsiella pneumoniae * Sacral decubitus ulcer * Type II DM * Hypertension * Anemia in ESRD Plan: * HD on hold pending reinsertion of catheter * Monitor lytes and volume status closely * Will d/c daily KCl - K 4.7 and patient without dialysis access at present * AM labs ordered * Abx per ID * Strict I/O * Dose medications for renal function Subjective Date of service: 08/17/16 Principal diagnosis: Polymicrobial bacteremia and sepsis; C. difficile infection Interval history: No acute events overnight. Objective - Vital Signs Vital signs: Vital Signs - 12hr 08/17/16 08/17/16 08/17/16 05:24 05:30 05:42 Temperature Pulse Rate 91 H 92 H 94 H Pulse Rate [ Anterior Bilateral Throughout] Pulse Rate [ From Monitor] Respiratory 22 23 22 Rate Respiratory Rate [Anterior Bilateral Throughout] Respiratory Rate [sacrum] Blood Pressure 134/49 113/45 113/45 O2 Sat by Pulse 100 100 100 Oximetry 08/17/16 08/17/16 08/17/16 05:46 05:58 06:00 Temperature Pulse Rate 86 85 86 Pulse Rate [ Anterior Bilateral Throughout] Pulse Rate [ From Monitor] Respiratory 20 18 22 Rate Respiratory Rate [Anterior Bilateral Throughout] Respiratory Rate [sacrum] Blood Pressure 113/45 113/45 134/50 O2 Sat by Pulse 100 100 100 Oximetry 08/17/16 08/17/16 08/17/16 06:02 06:16 06:30 Temperature Pulse Rate 85 89 81 Pulse Rate [ Anterior Bilateral Throughout] Pulse Rate [ From Monitor] Respiratory 20 22 18 Rate Respiratory Rate [Anterior Bilateral Throughout] Respiratory Rate [sacrum] Blood Pressure 134/50 134/50 134/50 O2 Sat by Pulse 100 98 100 Oximetry 08/17/16 08/17/16 08/17/16 06:44 06:46 07:00 Temperature Pulse Rate 81 81 82 Pulse Rate [ Anterior Bilateral Throughout] Pulse Rate [ From Monitor] Respiratory 19 19 17 Rate Respiratory Rate [Anterior Bilateral Throughout] Respiratory Rate [sacrum] Blood Pressure 109/39 109/39 118/47 O2 Sat by Pulse 100 100 100 Oximetry 08/17/16 08/17/16 08/17/16 07:16 07:30 07:40 Temperature Pulse Rate 83 94 H 91 H Pulse Rate [ Anterior Bilateral Throughout] Pulse Rate [ From Monitor] Respiratory 18 20 21 Rate Respiratory Rate [Anterior Bilateral Throughout] Respiratory Rate [sacrum] Blood Pressure 118/47 115/51 115/51 O2 Sat by Pulse 100 96 98 Oximetry 08/17/16 08/17/16 08/17/16 07:46 08:00 08:16 Temperature 97.6 F Pulse Rate 97 H 99 H 98 H Pulse Rate [ Anterior Bilateral Throughout] Pulse Rate [ From Monitor] Respiratory 20 20 19 Rate Respiratory Rate [Anterior Bilateral Throughout] Respiratory Rate [sacrum] Blood Pressure 115/51 98/32 98/32 O2 Sat by Pulse 98 93 97 Oximetry 08/17/16 08/17/16 08/17/16 08:30 08:32 08:36 Temperature Pulse Rate 95 H Pulse Rate [ 96 H Anterior Bilateral Throughout] Pulse Rate [ From Monitor] Respiratory 17 Rate Respiratory 18 Rate [Anterior Bilateral Throughout] Respiratory Rate [sacrum] Blood Pressure 98/32 O2 Sat by Pulse 96 98 Oximetry 08/17/16 08/17/16 08/17/16 08:46 08:48 09:00 Temperature Pulse Rate 93 H 92 H 92 H Pulse Rate [ Anterior Bilateral Throughout] Pulse Rate [ From Monitor] Respiratory 20 20 12 Rate Respiratory Rate [Anterior Bilateral Throughout] Respiratory Rate [sacrum] Blood Pressure 97/29 97/29 97/29 O2 Sat by Pulse 95 96 95 Oximetry 08/17/16 08/17/16 08/17/16 09:10 09:16 09:30 Temperature Pulse Rate 91 H 92 H 92 H Pulse Rate [ Anterior Bilateral Throughout] Pulse Rate [ From Monitor] Respiratory 16 21 19 Rate Respiratory Rate [Anterior Bilateral Throughout] Respiratory Rate [sacrum] Blood Pressure 93/14 93/14 98/30 O2 Sat by Pulse 96 94 95 Oximetry 08/17/16 08/17/16 08/17/16 09:46 10:00 10:16 Temperature Pulse Rate 95 H 94 H 97 H Pulse Rate [ Anterior Bilateral Throughout] Pulse Rate [ From Monitor] Respiratory 16 25 H 29 H Rate Respiratory Rate [Anterior Bilateral Throughout] Respiratory 19 Rate [sacrum] Blood Pressure 98/30 98/30 101/27 O2 Sat by Pulse 99 92 97 Oximetry 08/17/16 08/17/16 08/17/16 10:30 10:46 11:00 Temperature Pulse Rate 98 H 95 H 94 H Pulse Rate [ Anterior Bilateral Throughout] Pulse Rate [ From Monitor] Respiratory 21 22 22 Rate Respiratory Rate [Anterior Bilateral Throughout] Respiratory Rate [sacrum] Blood Pressure 85/29 85/29 85/29 O2 Sat by Pulse 98 97 Oximetry 08/17/16 08/17/16 08/17/16 11:15 11:30 11:46 Temperature Pulse Rate 102 H 95 H 93 H Pulse Rate [ Anterior Bilateral Throughout] Pulse Rate [ From Monitor] Respiratory 14 20 18 Rate Respiratory Rate [Anterior Bilateral Throughout] Respiratory Rate [sacrum] Blood Pressure 125/58 125/58 133/41 O2 Sat by Pulse 96 100 99 Oximetry 08/17/16 08/17/16 08/17/16 12:00 12:10 12:16 Temperature 98.7 F Pulse Rate 91 H 91 H 88 Pulse Rate [ Anterior Bilateral Throughout] Pulse Rate [ From Monitor] Respiratory 22 17 17 Rate Respiratory Rate [Anterior Bilateral Throughout] Respiratory Rate [sacrum] Blood Pressure 105/48 105/48 105/48 O2 Sat by Pulse 96 99 98 Oximetry 08/17/16 08/17/16 08/17/16 12:30 12:46 13:00 Temperature Pulse Rate 90 92 H 94 H Pulse Rate [ Anterior Bilateral Throughout] Pulse Rate [ From Monitor] Respiratory 12 24 15 Rate Respiratory Rate [Anterior Bilateral Throughout] Respiratory Rate [sacrum] Blood Pressure 90/51 90/51 103/40 O2 Sat by Pulse 96 98 96 Oximetry 08/17/16 08/17/16 08/17/16 13:16 13:30 13:46 Temperature Pulse Rate 91 H 93 H 89 Pulse Rate [ Anterior Bilateral Throughout] Pulse Rate [ From Monitor] Respiratory 21 20 19 Rate Respiratory Rate [Anterior Bilateral Throughout] Respiratory Rate [sacrum] Blood Pressure 103/40 100/42 100/42 O2 Sat by Pulse 97 90 98 Oximetry 08/17/16 08/17/16 08/17/16 14:00 14:02 14:16 Temperature Pulse Rate 90 91 H 94 H Pulse Rate [ Anterior Bilateral Throughout] Pulse Rate [ From Monitor] Respiratory 28 H 26 H 18 Rate Respiratory Rate [Anterior Bilateral Throughout] Respiratory Rate [sacrum] Blood Pressure 103/36 103/36 O2 Sat by Pulse 97 99 98 Oximetry 08/17/16 08/17/16 08/17/16 14:20 14:30 14:36 Temperature Pulse Rate 91 H Pulse Rate [ 97 H Anterior Bilateral Throughout] Pulse Rate [ From Monitor] Respiratory 21 23 Rate Respiratory 18 Rate [Anterior Bilateral Throughout] Respiratory Rate [sacrum] Blood Pressure 103/36 103/43 O2 Sat by Pulse 99 96 Oximetry 08/17/16 08/17/16 08/17/16 15:08 15:15 15:30 Temperature Pulse Rate 107 H 105 H Pulse Rate [ Anterior Bilateral Throughout] Pulse Rate [ From Monitor] Respiratory 23 17 Rate Respiratory Rate [Anterior Bilateral Throughout] Respiratory Rate [sacrum] Blood Pressure 125/73 141/52 O2 Sat by Pulse 97 98 95 Oximetry 08/17/16 08/17/16 08/17/16 15:45 16:00 16:01 Temperature 97.8 F Pulse Rate 104 H 99 H Pulse Rate [ Anterior Bilateral Throughout] Pulse Rate [ 112 H From Monitor] Respiratory 15 22 15 Rate Respiratory Rate [Anterior Bilateral Throughout] Respiratory Rate [sacrum] Blood Pressure 141/52 165/48 O2 Sat by Pulse 99 97 95 Oximetry 08/17/16 08/17/16 16:15 16:30 Temperature Pulse Rate 101 H 102 H Pulse Rate [ Anterior Bilateral Throughout] Pulse Rate [ From Monitor] Respiratory 22 22 Rate Respiratory Rate [Anterior Bilateral Throughout] Respiratory Rate [sacrum] Blood Pressure 165/48 148/115 O2 Sat by Pulse 100 84 Oximetry - General Appearance General appearance: well-developed, well-nourished EENT: ATNC Respiratory: Present: Clear to Ascultation Cardiology: regular, S1S2 Gastrointestinal: hypoactive bowel sounds, no tenderness, no distended Integumentary: no rash, warm and dry Neurologic: other (nonfocal) - Lab 08/17/16 08:40 08/17/16 08:40 Most recent lab results Calcium 8.3 mg/dL (8.4-10.2) L 08/17/16 08:40 Magnesium 2.2 mg/dL (1.7-2.3) 08/11/16 15:28
[2016-08-17] MEDS ORDERED: LEVEMIR SUB-Q STA (18:09)
[2016-08-18] MEDS: NOVOLOG SUB-Q SCH ×4 (00:26→17:58)
[2016-08-18] MEDS: DILAUDID IV PRN ×2 (05:15→13:18)
[2016-08-18] MEDS: FLAGYL PO SCH ×3 (05:17→21:27)
[2016-08-18] MEDS: DUONEB 0.5 MG-3 MG/3 ML SOLN IH SCH ×4 (07:57→23:03)
[2016-08-18] MEDS: PEPCID PO SCH (10:53)
[2016-08-18] MEDS: ZYVOX PO SCH ×2 (10:53→21:27)
[2016-08-18] MEDS: HEPARIN SUB-Q SCH ×2 (10:54→21:37)
[2016-08-18] MEDS: MERREM 1,000 MG in NACL 0.9% 100 ML IV SCH (10:54)
[2016-08-18] MEDS: KEPPRA PO SCH (10:54)
[2016-08-18] MEDS: LEVEMIR SUB-Q SCH (10:55)
[2016-08-18] MEDS: MORPHINE IV PRN ×2 (11:04→23:37)
--- NOTE | 2016-08-18 12:11 | Progress Note ---
Assessment and Plan Patients condition same. Patient awake, weak, No acute respiratory distress. Patient placed on 2 litres O2 , O2 satuaration 98% - Patient Problems (1) Sepsis due to Klebsiella Current Visit: Yes Status: Acute Plan to address problem: Patient is on Linozelid, merepenum and Metranidazole. Antibiotics as per infectious disease specialists. (2) Septic shock Current Visit: Yes Status: Acute Plan to address problem: Improving. Patient is on norepinephrine. Continue present I/V Fluids NSS. Continue present antibiotics. Linozelid, merepenum and metranidazole. Continue Hydrocortizone. (3) Clostridium difficile colitis Current Visit: Yes Status: Acute Plan to address problem: Patient is on Metranidazole. Management as per infectious diseases. (4) Altered mental status Current Visit: Yes Status: Acute Plan to address problem: Management as per primary care. (5) End stage renal disease Current Visit: Yes Status: Chronic Plan to address problem: Management as per nephrology. (6) Lactic acidosis Current Visit: Yes Status: Acute Plan to address problem: Bicarb is 16, patient compensated. Obtaining blood gases. (7) Seizure disorder Current Visit: Yes Status: Chronic Plan to address problem: Patient is on Keppra. Subjective Date of service: 08/18/16 Principal diagnosis: Polymicrobial bacteremia and sepsis; C. difficile infection Interval history: Patients condition same. Patient awake, weak, No acute respiratory distress. Patient placed on 2 litres O2 , O2 satuaration 98% Objective Vital Signs - 12hr 08/18/16 08/18/16 08/18/16 00:07 00:09 00:10 Temperature Pulse Rate 86 83 Pulse Rate [ 89 Anterior Bilateral Throughout] Respiratory 23 21 Rate Respiratory 16 Rate [Anterior Bilateral Throughout] Respiratory Rate [sacrum] Blood Pressure 109/44 109/44 O2 Sat by Pulse 100 100 Oximetry 08/18/16 08/18/16 08/18/16 00:15 00:30 00:45 Temperature Pulse Rate 82 91 H 95 H Pulse Rate [ Anterior Bilateral Throughout] Respiratory 20 22 28 H Rate Respiratory Rate [Anterior Bilateral Throughout] Respiratory Rate [sacrum] Blood Pressure 109/44 133/59 133/59 O2 Sat by Pulse 100 100 100 Oximetry 08/18/16 08/18/16 08/18/16 01:00 01:15 01:30 Temperature Pulse Rate 95 H 96 H 92 H Pulse Rate [ Anterior Bilateral Throughout] Respiratory 21 18 20 Rate Respiratory Rate [Anterior Bilateral Throughout] Respiratory Rate [sacrum] Blood Pressure 134/60 134/60 136/48 O2 Sat by Pulse 99 100 99 Oximetry 08/18/16 08/18/16 08/18/16 01:45 02:01 02:15 Temperature Pulse Rate 85 96 H 91 H Pulse Rate [ Anterior Bilateral Throughout] Respiratory 17 26 H 20 Rate Respiratory Rate [Anterior Bilateral Throughout] Respiratory Rate [sacrum] Blood Pressure 136/48 116/40 116/40 O2 Sat by Pulse 100 100 100 Oximetry 08/18/16 08/18/16 08/18/16 02:31 02:45 03:01 Temperature Pulse Rate 87 85 90 Pulse Rate [ Anterior Bilateral Throughout] Respiratory 19 19 18 Rate Respiratory Rate [Anterior Bilateral Throughout] Respiratory Rate [sacrum] Blood Pressure 118/37 118/37 117/40 O2 Sat by Pulse 100 100 100 Oximetry 08/18/16 08/18/16 08/18/16 03:13 03:15 03:31 Temperature Pulse Rate 89 102 H 85 Pulse Rate [ Anterior Bilateral Throughout] Respiratory 22 33 H 18 Rate Respiratory Rate [Anterior Bilateral Throughout] Respiratory Rate [sacrum] Blood Pressure 117/40 117/40 117/40 O2 Sat by Pulse 100 100 Oximetry 08/18/16 08/18/16 08/18/16 03:45 04:00 04:01 Temperature 98.0 F Pulse Rate 84 91 H Pulse Rate [ Anterior Bilateral Throughout] Respiratory 17 20 Rate Respiratory Rate [Anterior Bilateral Throughout] Respiratory Rate [sacrum] Blood Pressure 114/38 106/73 O2 Sat by Pulse 100 Oximetry 08/18/16 08/18/16 08/18/16 04:15 04:30 04:31 Temperature Pulse Rate 92 H 82 105 H Pulse Rate [ Anterior Bilateral Throughout] Respiratory 26 H Rate Respiratory Rate [Anterior Bilateral Throughout] Respiratory 22 Rate [sacrum] Blood Pressure 106/73 115/91 O2 Sat by Pulse 100 100 100 Oximetry 08/18/16 08/18/16 08/18/16 04:45 05:00 05:15 Temperature Pulse Rate 87 81 82 Pulse Rate [ Anterior Bilateral Throughout] Respiratory 19 19 18 Rate Respiratory Rate [Anterior Bilateral Throughout] Respiratory Rate [sacrum] Blood Pressure 106/73 108/50 108/50 O2 Sat by Pulse 100 100 100 Oximetry 08/18/16 08/18/16 08/18/16 05:25 05:30 05:33 Temperature Pulse Rate 82 82 81 Pulse Rate [ Anterior Bilateral Throughout] Respiratory 20 17 15 Rate Respiratory Rate [Anterior Bilateral Throughout] Respiratory Rate [sacrum] Blood Pressure 108/50 117/50 117/50 O2 Sat by Pulse 100 100 100 Oximetry 08/18/16 08/18/16 08/18/16 05:43 05:45 05:58 Temperature Pulse Rate 81 84 77 Pulse Rate [ Anterior Bilateral Throughout] Respiratory 20 24 14 Rate Respiratory Rate [Anterior Bilateral Throughout] Respiratory Rate [sacrum] Blood Pressure 117/50 117/50 117/50 O2 Sat by Pulse 100 100 100 Oximetry 08/18/16 08/18/16 08/18/16 06:00 06:01 06:03 Temperature Pulse Rate 82 79 81 Pulse Rate [ Anterior Bilateral Throughout] Respiratory 16 16 22 Rate Respiratory Rate [Anterior Bilateral Throughout] Respiratory Rate [sacrum] Blood Pressure 127/58 127/58 127/58 O2 Sat by Pulse 100 100 100 Oximetry 08/18/16 08/18/16 08/18/16 06:15 06:16 06:30 Temperature Pulse Rate 76 75 75 Pulse Rate [ Anterior Bilateral Throughout] Respiratory 14 13 23 Rate Respiratory Rate [Anterior Bilateral Throughout] Respiratory Rate [sacrum] Blood Pressure 117/50 127/58 107/46 O2 Sat by Pulse 100 100 100 Oximetry 08/18/16 08/18/16 08/18/16 06:45 07:00 07:15 Temperature Pulse Rate 75 77 75 Pulse Rate [ Anterior Bilateral Throughout] Respiratory 13 14 14 Rate Respiratory Rate [Anterior Bilateral Throughout] Respiratory Rate [sacrum] Blood Pressure 127/58 107/51 107/46 O2 Sat by Pulse 100 100 100 Oximetry 08/18/16 08/18/16 08/18/16 07:30 07:45 07:57 Temperature Pulse Rate 74 71 Pulse Rate [ 75 Anterior Bilateral Throughout] Respiratory 13 13 Rate Respiratory 22 Rate [Anterior Bilateral Throughout] Respiratory Rate [sacrum] Blood Pressure 107/46 107/46 O2 Sat by Pulse 100 100 100 Oximetry 08/18/16 08/18/16 08/18/16 08:00 08:07 08:15 Temperature 98.1 F Pulse Rate 76 76 Pulse Rate [ 77 Anterior Bilateral Throughout] Respiratory 15 12 Rate Respiratory 21 Rate [Anterior Bilateral Throughout] Respiratory Rate [sacrum] Blood Pressure 98/41 98/41 O2 Sat by Pulse 100 100 Oximetry 08/18/16 08/18/16 08/18/16 08:30 08:45 09:01 Temperature Pulse Rate 73 77 92 H Pulse Rate [ Anterior Bilateral Throughout] Respiratory 15 13 16 Rate Respiratory Rate [Anterior Bilateral Throughout] Respiratory Rate [sacrum] Blood Pressure 95/42 95/42 141/65 O2 Sat by Pulse 100 100 98 Oximetry 08/18/16 11:04 Temperature Pulse Rate Pulse Rate [ Anterior Bilateral Throughout] Respiratory 21 Rate Respiratory Rate [Anterior Bilateral Throughout] Respiratory Rate [sacrum] Blood Pressure O2 Sat by Pulse Oximetry Constitutional: no acute distress, lethargic Eyes: non-icteric ENT: oropharynx moist Neck: supple Effort: normal Ascultation: Bilateral: diminished breath sounds Cardiovascular: regular rate and rhythm Gastrointestinal: normoactive bowel sounds Extremities: no cyanosis, no edema Neurologic: pupils equal and round, unable to assess Psychiatric: depressed, other CBC and BMP: 08/17/16 08:40 08/17/16 08:40 ABG, PT/INR, D-dimer: ABG POC ABG pH 7.444 (7.35-7.45) 08/12/16 15:23 POC ABG pCO2 29.4 (35-45) L 08/12/16 15:23 POC ABG pO2 51 (80-105) L 08/12/16 15:23 POC ABG HCO3 20.2 08/12/16 15:23 POC ABG Total CO2 21 08/12/16 15:23 POC ABG O2 Sat 88 08/12/16 15:23 PT/INR, D-dimer D-Dimer 5042.20 ng/mlDDU (0-234) H 08/12/16 16:18 Abnormal lab findings: Abnormal Labs 08/11/16 08/11/16 08/12/16 19:45 23:01 02:35 WBC RBC Hgb Hct RDW Seg Neuts % (Manual) Lymphocytes % (Manual) Monocytes % (Manual) Seg Neutrophils # Man Monocytes # (Manual) Eosinophils # (Manual) D-Dimer POC ABG pCO2 POC ABG pO2 Sodium Potassium Chloride Carbon Dioxide BUN Creatinine Glucose POC Glucose 307 H Lactic Acid 3.5 H* Calcium TIBC Ferritin Lactate Dehydrogenase Vitamin B12 Crossmatch See Detail 08/12/16 08/12/16 08/12/16 05:30 05:30 11:09 WBC 38.6 H RBC 3.14 L Hgb 8.7 L Hct 28.1 L D RDW 18.3 H Seg Neuts % (Manual) Lymphocytes % (Manual) 9.0 L Monocytes % (Manual) 8.0 H Seg Neutrophils # Man 16.6 H Monocytes # (Manual) 3.1 H Eosinophils # (Manual) 1.2 H D-Dimer POC ABG pCO2 POC ABG pO2 Sodium 133 L Potassium 3.0 L Chloride 92.4 L Carbon Dioxide 21 L BUN 44 H Creatinine 2.3 H Glucose 270 H POC Glucose 247 H Lactic Acid Calcium 8.2 L TIBC Ferritin Lactate Dehydrogenase Vitamin B12 Crossmatch 08/12/16 08/12/16 08/12/16 12:16 12:16 12:16 WBC RBC Hgb Hct RDW Seg Neuts % (Manual) Lymphocytes % (Manual) Monocytes % (Manual) Seg Neutrophils # Man Monocytes # (Manual) Eosinophils # (Manual) D-Dimer POC ABG pCO2 POC ABG pO2 Sodium Potassium Chloride Carbon Dioxide BUN Creatinine Glucose POC Glucose Lactic Acid Calcium TIBC Ferritin 2000.0 H Lactate Dehydrogenase 276 H Vitamin B12 1117 H Crossmatch 08/12/16 08/12/16 08/12/16 12:16 15:23 16:18 WBC RBC Hgb Hct RDW Seg Neuts % (Manual) Lymphocytes % (Manual) Monocytes % (Manual) Seg Neutrophils # Man Monocytes # (Manual) Eosinophils # (Manual) D-Dimer 5042.20 H POC ABG pCO2 29.4 L POC ABG pO2 51 L Sodium Potassium Chloride Carbon Dioxide BUN Creatinine Glucose POC Glucose Lactic Acid Calcium TIBC 101 L Ferritin Lactate Dehydrogenase Vitamin B12 Crossmatch 08/12/16 08/12/16 08/13/16 17:45 23:36 06:58 WBC RBC Hgb Hct RDW Seg Neuts % (Manual) Lymphocytes % (Manual) Monocytes % (Manual) Seg Neutrophils # Man Monocytes # (Manual) Eosinophils # (Manual) D-Dimer POC ABG pCO2 POC ABG pO2 Sodium Potassium Chloride Carbon Dioxide BUN Creatinine Glucose POC Glucose 196 H 170 H 199 H Lactic Acid Calcium TIBC Ferritin Lactate Dehydrogenase Vitamin B12 Crossmatch 08/13/16 08/13/16 08/13/16 11:25 16:29 21:10 WBC RBC Hgb Hct RDW Seg Neuts % (Manual) Lymphocytes % (Manual) Monocytes % (Manual) Seg Neutrophils # Man Monocytes # (Manual) Eosinophils # (Manual) D-Dimer POC ABG pCO2 POC ABG pO2 Sodium Potassium Chloride Carbon Dioxide BUN Creatinine Glucose POC Glucose 267 H 277 H 203 H Lactic Acid Calcium TIBC Ferritin Lactate Dehydrogenase Vitamin B12 Crossmatch 08/13/16 08/13/16 08/14/16 Unknown Unknown 07:42 WBC 30.0 H RBC 2.75 L Hgb 7.8 L Hct 24.0 L RDW 18.4 H Seg Neuts % (Manual) 75.0 H Lymphocytes % (Manual) 7.0 L Monocytes % (Manual) Seg Neutrophils # Man 22.5 H Monocytes # (Manual) Eosinophils # (Manual) D-Dimer POC ABG pCO2 POC ABG pO2 Sodium 133 L Potassium 3.4 L Chloride 95.2 L Carbon Dioxide 18 L BUN 58 H Creatinine 2.9 H Glucose 201 H POC Glucose 306 H Lactic Acid Calcium 8.2 L TIBC Ferritin Lactate Dehydrogenase Vitamin B12 Crossmatch 08/14/16 08/14/16 08/14/16 08:26 08:26 11:19 WBC 28.9 H RBC 2.92 L Hgb 8.2 L Hct 25.9 L RDW 18.8 H Seg Neuts % (Manual) 85.5 H Lymphocytes % (Manual) 4.5 L Monocytes % (Manual) Seg Neutrophils # Man 24.7 H Monocytes # (Manual) 0.9 H Eosinophils # (Manual) D-Dimer POC ABG pCO2 POC ABG pO2 Sodium Potassium Chloride Carbon Dioxide 15 L BUN 77 H Creatinine 3.5 H Glucose 289 H POC Glucose 274 H Lactic Acid Calcium 8.3 L TIBC Ferritin Lactate Dehydrogenase Vitamin B12 Crossmatch 08/14/16 08/14/16 08/15/16 15:56 21:12 06:00 WBC 30.1 H RBC 2.67 L Hgb 7.8 L Hct 23.4 L RDW 18.4 H Seg Neuts % (Manual) 86.0 H Lymphocytes % (Manual) 4.0 L Monocytes % (Manual) Seg Neutrophils # Man 25.9 H Monocytes # (Manual) 1.8 H Eosinophils # (Manual) D-Dimer POC ABG pCO2 POC ABG pO2 Sodium Potassium Chloride Carbon Dioxide BUN Creatinine Glucose POC Glucose 284 H 357 H Lactic Acid Calcium TIBC Ferritin Lactate Dehydrogenase Vitamin B12 Crossmatch 08/15/16 08/15/16 08/15/16 06:00 11:17 16:43 WBC RBC Hgb Hct RDW Seg Neuts % (Manual) Lymphocytes % (Manual) Monocytes % (Manual) Seg Neutrophils # Man Monocytes # (Manual) Eosinophils # (Manual) D-Dimer POC ABG pCO2 POC ABG pO2 Sodium Potassium 3.5 L Chloride 96.6 L Carbon Dioxide 21 L BUN 51 H Creatinine 2.6 H Glucose 214 H POC Glucose 280 H 257 H Lactic Acid Calcium 8.3 L TIBC Ferritin Lactate Dehydrogenase Vitamin B12 Crossmatch 08/15/16 08/16/16 08/16/16 23:40 05:25 07:20 WBC RBC Hgb Hct RDW Seg Neuts % (Manual) Lymphocytes % (Manual) Monocytes % (Manual) Seg Neutrophils # Man Monocytes # (Manual) Eosinophils # (Manual) D-Dimer POC ABG pCO2 POC ABG pO2 Sodium Potassium Chloride Carbon Dioxide BUN Creatinine Glucose POC Glucose 179 H 140 H 147 H Lactic Acid Calcium TIBC Ferritin Lactate Dehydrogenase Vitamin B12 Crossmatch 08/16/16 08/16/16 08/16/16 09:20 09:20 11:28 WBC 35.1 H RBC 2.78 L Hgb 7.9 L Hct 24.7 L RDW 18.5 H Seg Neuts % (Manual) Lymphocytes % (Manual) Monocytes % (Manual) Seg Neutrophils # Man Monocytes # (Manual) Eosinophils # (Manual) D-Dimer POC ABG pCO2 POC ABG pO2 Sodium 136 L Potassium 3.5 L Chloride Carbon Dioxide 17 L BUN 62 H Creatinine 3.3 H Glucose 128 H POC Glucose 150 H Lactic Acid Calcium 7.7 L TIBC Ferritin Lactate Dehydrogenase Vitamin B12 Crossmatch 08/16/16 08/16/16 08/17/16 15:39 23:45 05:03 WBC RBC Hgb Hct RDW Seg Neuts % (Manual) Lymphocytes % (Manual) Monocytes % (Manual) Seg Neutrophils # Man Monocytes # (Manual) Eosinophils # (Manual) D-Dimer POC ABG pCO2 POC ABG pO2 Sodium Potassium Chloride Carbon Dioxide BUN Creatinine Glucose POC Glucose 106 H 156 H 287 H Lactic Acid Calcium TIBC Ferritin Lactate Dehydrogenase Vitamin B12 Crossmatch 08/17/16 08/17/16 08/17/16 08:40 08:40 12:11 WBC 37.0 H RBC 2.91 L Hgb 8.3 L Hct 25.8 L RDW 18.5 H Seg Neuts % (Manual) Lymphocytes % (Manual) Monocytes % (Manual) Seg Neutrophils # Man Monocytes # (Manual) Eosinophils # (Manual) D-Dimer POC ABG pCO2 POC ABG pO2 Sodium 136 L Potassium Chloride 96.0 L Carbon Dioxide 16 L BUN 78 H Creatinine 4.0 H Glucose 330 H POC Glucose 345 H Lactic Acid Calcium 8.3 L TIBC Ferritin Lactate Dehydrogenase Vitamin B12 Crossmatch 08/17/16 08/17/16 08/17/16 15:34 17:40 20:07 WBC RBC Hgb Hct RDW Seg Neuts % (Manual) Lymphocytes % (Manual) Monocytes % (Manual) Seg Neutrophils # Man Monocytes # (Manual) Eosinophils # (Manual) D-Dimer POC ABG pCO2 POC ABG pO2 Sodium Potassium Chloride Carbon Dioxide BUN Creatinine Glucose POC Glucose < 40 L 403 H 439 H Lactic Acid Calcium TIBC Ferritin Lactate Dehydrogenase Vitamin B12 Crossmatch 08/18/16 08/18/16 00:16 05:03 WBC RBC Hgb Hct RDW Seg Neuts % (Manual) Lymphocytes % (Manual) Monocytes % (Manual) Seg Neutrophils # Man Monocytes # (Manual) Eosinophils # (Manual) D-Dimer POC ABG pCO2 POC ABG pO2 Sodium Potassium Chloride Carbon Dioxide BUN Creatinine Glucose POC Glucose 457 H 388 H Lactic Acid Calcium TIBC Ferritin Lactate Dehydrogenase Vitamin B12 Crossmatch Allied health notes reviewed: nursing
--- NOTE | 2016-08-18 12:25 | Progress Note ---
Assessment and Plan Impression: * ESRD * Catheter related bacteremia, enterococcus faecium, klebsiella pneumoniae * C diff colitis * Sacral decubitus ulcer * Type II DM * Hypertension * Anemia in ESRD Plan: * HD on hold pending reinsertion of catheter; possible reinsertion on Saturday pending preliminary blood cultures * Monitor lytes and volume status closely; KCl discontinued yesterday * Have ordered stat BMP * Daily labs ordered * Abx per ID * Strict I/O * Dose medications for renal function Subjective Date of service: 08/18/16 Principal diagnosis: Polymicrobial bacteremia and sepsis; C. difficile infection Interval history: No acute events overnight. Objective - Vital Signs Vital signs: Vital Signs - 12hr 08/18/16 08/18/16 08/18/16 00:30 00:45 01:00 Temperature Pulse Rate 91 H 95 H 95 H Pulse Rate [ Anterior Bilateral Throughout] Respiratory 22 28 H 21 Rate Respiratory Rate [Anterior Bilateral Throughout] Respiratory Rate [sacrum] Blood Pressure 133/59 133/59 134/60 O2 Sat by Pulse 100 100 99 Oximetry 08/18/16 08/18/16 08/18/16 01:15 01:30 01:45 Temperature Pulse Rate 96 H 92 H 85 Pulse Rate [ Anterior Bilateral Throughout] Respiratory 18 20 17 Rate Respiratory Rate [Anterior Bilateral Throughout] Respiratory Rate [sacrum] Blood Pressure 134/60 136/48 136/48 O2 Sat by Pulse 100 99 100 Oximetry 08/18/16 08/18/16 08/18/16 02:01 02:15 02:31 Temperature Pulse Rate 96 H 91 H 87 Pulse Rate [ Anterior Bilateral Throughout] Respiratory 26 H 20 19 Rate Respiratory Rate [Anterior Bilateral Throughout] Respiratory Rate [sacrum] Blood Pressure 116/40 116/40 118/37 O2 Sat by Pulse 100 100 100 Oximetry 08/18/16 08/18/16 08/18/16 02:45 03:01 03:13 Temperature Pulse Rate 85 90 89 Pulse Rate [ Anterior Bilateral Throughout] Respiratory 19 18 22 Rate Respiratory Rate [Anterior Bilateral Throughout] Respiratory Rate [sacrum] Blood Pressure 118/37 117/40 117/40 O2 Sat by Pulse 100 100 100 Oximetry 08/18/16 08/18/16 08/18/16 03:15 03:31 03:45 Temperature Pulse Rate 102 H 85 84 Pulse Rate [ Anterior Bilateral Throughout] Respiratory 33 H 18 17 Rate Respiratory Rate [Anterior Bilateral Throughout] Respiratory Rate [sacrum] Blood Pressure 117/40 117/40 114/38 O2 Sat by Pulse 100 100 Oximetry 08/18/16 08/18/16 08/18/16 04:00 04:01 04:15 Temperature 98.0 F Pulse Rate 91 H 92 H Pulse Rate [ Anterior Bilateral Throughout] Respiratory 20 Rate Respiratory Rate [Anterior Bilateral Throughout] Respiratory Rate [sacrum] Blood Pressure 106/73 106/73 O2 Sat by Pulse 100 Oximetry 08/18/16 08/18/16 08/18/16 04:30 04:31 04:45 Temperature Pulse Rate 82 105 H 87 Pulse Rate [ Anterior Bilateral Throughout] Respiratory 26 H 19 Rate Respiratory Rate [Anterior Bilateral Throughout] Respiratory 22 Rate [sacrum] Blood Pressure 115/91 106/73 O2 Sat by Pulse 100 100 100 Oximetry 08/18/16 08/18/16 08/18/16 05:00 05:15 05:25 Temperature Pulse Rate 81 82 82 Pulse Rate [ Anterior Bilateral Throughout] Respiratory 19 18 20 Rate Respiratory Rate [Anterior Bilateral Throughout] Respiratory Rate [sacrum] Blood Pressure 108/50 108/50 108/50 O2 Sat by Pulse 100 100 100 Oximetry 08/18/16 08/18/16 08/18/16 05:30 05:33 05:43 Temperature Pulse Rate 82 81 81 Pulse Rate [ Anterior Bilateral Throughout] Respiratory 17 15 20 Rate Respiratory Rate [Anterior Bilateral Throughout] Respiratory Rate [sacrum] Blood Pressure 117/50 117/50 117/50 O2 Sat by Pulse 100 100 100 Oximetry 08/18/16 08/18/16 08/18/16 05:45 05:58 06:00 Temperature Pulse Rate 84 77 82 Pulse Rate [ Anterior Bilateral Throughout] Respiratory 24 14 16 Rate Respiratory Rate [Anterior Bilateral Throughout] Respiratory Rate [sacrum] Blood Pressure 117/50 117/50 127/58 O2 Sat by Pulse 100 100 100 Oximetry 08/18/16 08/18/16 08/18/16 06:01 06:03 06:15 Temperature Pulse Rate 79 81 76 Pulse Rate [ Anterior Bilateral Throughout] Respiratory 16 22 14 Rate Respiratory Rate [Anterior Bilateral Throughout] Respiratory Rate [sacrum] Blood Pressure 127/58 127/58 117/50 O2 Sat by Pulse 100 100 100 Oximetry 08/18/16 08/18/16 08/18/16 06:16 06:30 06:45 Temperature Pulse Rate 75 75 75 Pulse Rate [ Anterior Bilateral Throughout] Respiratory 13 23 13 Rate Respiratory Rate [Anterior Bilateral Throughout] Respiratory Rate [sacrum] Blood Pressure 127/58 107/46 127/58 O2 Sat by Pulse 100 100 100 Oximetry 08/18/16 08/18/16 08/18/16 07:00 07:15 07:30 Temperature Pulse Rate 77 75 74 Pulse Rate [ Anterior Bilateral Throughout] Respiratory 14 14 13 Rate Respiratory Rate [Anterior Bilateral Throughout] Respiratory Rate [sacrum] Blood Pressure 107/51 107/46 107/46 O2 Sat by Pulse 100 100 100 Oximetry 08/18/16 08/18/16 08/18/16 07:45 07:57 08:00 Temperature 98.1 F Pulse Rate 71 76 Pulse Rate [ 75 Anterior Bilateral Throughout] Respiratory 13 15 Rate Respiratory 22 Rate [Anterior Bilateral Throughout] Respiratory Rate [sacrum] Blood Pressure 107/46 98/41 O2 Sat by Pulse 100 100 100 Oximetry 08/18/16 08/18/16 08/18/16 08:07 08:15 08:30 Temperature Pulse Rate 76 73 Pulse Rate [ 77 Anterior Bilateral Throughout] Respiratory 12 15 Rate Respiratory 21 Rate [Anterior Bilateral Throughout] Respiratory Rate [sacrum] Blood Pressure 98/41 95/42 O2 Sat by Pulse 100 100 Oximetry 08/18/16 08/18/16 08/18/16 08:45 09:01 11:04 Temperature Pulse Rate 77 92 H Pulse Rate [ Anterior Bilateral Throughout] Respiratory 13 16 21 Rate Respiratory Rate [Anterior Bilateral Throughout] Respiratory Rate [sacrum] Blood Pressure 95/42 141/65 O2 Sat by Pulse 100 98 Oximetry - General Appearance General appearance: well-developed, well-nourished EENT: ATNC Neck: no JVD Respiratory: Present: Clear to Ascultation Cardiology: regular, S1S2 Gastrointestinal: no tenderness, no distended Integumentary: no rash Musculoskeletal: other (no edema) Psychiatric: cooperative - Lab 08/17/16 08:40 08/17/16 08:40 Most recent lab results Calcium 8.3 mg/dL (8.4-10.2) L 08/17/16 08:40 Magnesium 2.2 mg/dL (1.7-2.3) 08/11/16 15:28
--- NOTE | 2016-08-18 12:49 | Progress Note ---
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 Patient is currently on blood pressure support. Admitting blood cultures are growing blood cultures Gram positive cocci in pairs and Gram negative rods. Problem list: 1. Polymicrobial bacteremia and sepsis -08/16 blood cultures with gram-positive cocci in pairs (4 of 4 bottles). Rule out persitent VRE bacteremia -08/11 blood cultures with 4/4 bottles with ESBL Klebsiella pneumoniae and Vancomycin resistant Enterococcus faecium -Left chest wall permacath infection. Status post removal 08/15 2. C. diff. infection -Toxin assay positive 08/13 3. Leukocytosis -Marked elevation to 51,000 -Multifactorial with bacteremia & C diff infection -Trending downward. 4. Presacral pressure sore -Uninfected at present 5. End-stage renal failure -Left chest PermCath - removal 08/15 6. Status post right hemispheral stroke -Left hemiplegia 7. Lactic acidosis -Secondary to #1 -Improving on current treatment 8. Type 2 DM PLAN: 1. Continue Meropenem 2. Continue linezolid versus the VRE 3. Continue enteral Flagyl vs C diff infection 4. Glycemic control as per the primary team 5. Await further identification of positive VC tip cx and blood cultures from 08/16 ( ? Persistent VRE) -Gm neg Chris and Entercoccus species - Vas Cath cx - Gm + Cocci 4/4 btls 08/16 6. Continue C. difficile & VRE isolation precautions Arash Bennett MD [facility] Office: [phone] Subjective Date of service: 08/18/16 Principal diagnosis: Polymicrobial bacteremia and sepsis; C. difficile infection Interval history: No obvious complaints. No acute distress. Remains confused and agitated calling out and talking but no one in room. ROS: not reliable. Objective - Exam Narrative Exam: GENERAL: Well-developed, chronically ill-appearing female who is alert and in no acute distress, calling out for the nurse. HEENT: Pupils are equal reactive to light and accommodation. Conjunctiva clear. Bilateral arcus senilis. Oropharynx is normal with no evidence of oral candidiasis or pharyngitis. Patient is edentulous. NECK: Supple. No enlargement of the thyroid gland. No significant cervical lymphadenopathy. No jugular venous distention at 30. LUNGS: Clear with no adventitious sounds. CHEST: Previous left vas cath with no signs of infection. Not tender to palpation and no drainage visible. HEART: Regular rate. S1 and S2 are normal. There are no gallops, clicks or rubs heard. II/ JOSEPHINE heard best over the LUSB. No diastolic murmur. ABDOMEN: Soft and nontender. Liver and spleen are not palpably enlarged or tender. No palpable masses. Bowel sounds are normoactive. PEG site is clean with no signs of infection. : Normal external female. No Rico catheter. EXTREMITIES: No rash, peripheral lymphadenopathy, clubbing or edema. SKIN: Dressings noted to the feet bilat that are clean and dry. these are not removed. Previous Stage II sacral pressure sore with no signs of infection are not seen today. NEUROLOGIC: Left hemiplegia. Alert. Oriented to person only. - Constitutional Vitals: Vital Signs Temp Pulse Resp BP Pulse Ox 98.1 F 92 H 21 141/65 98 08/18/16 08:00 08/18/16 09:01 08/18/16 11:04 08/18/16 09:01 08/18/16 09:01 Temperature -Last 24 Hours Temperature 98.1 F Temperature 98.0 F Temperature 97.9 F Temperature 98.2 F Temperature 97.8 F - Labs CBC & Chem 7: 08/17/16 08:40 08/18/16 13:16 Labs: Abnormal lab results Microbiology 08/16/16 10:42 Peripheral/Venous Blood Culture - 2/2 bottles with GPC in pairs 08/16/16 10:28 Peripheral/Venous Blood Culture - 2/2 bottles with GPC in pairs 08/15/16 Unknown Vascular Cath Catheter Tip Culture - Preliminary Gram Negative Chris Enterococcus Species 08/12/16 11:41 Vascular Cath Blood Culture - Preliminary Klebsiella Pneumoniae (ESBL strain, quinolone resistant, carbapenem sensitive) Enterococcus faecium (Vancomycin resistant) 08/12/16 11:41 Peripheral/Venous Blood Culture - 2/2 bottles with Enterococcus faecium (Vancomycin & penicillin resistant) 08/11/16 18:31 Peripheral/Venous Blood Culture - Preliminary Klebsiella Pneumoniae Enterococcus faecium 08/11/16 18:31 Peripheral/Venous Blood Culture - Preliminary Klebsiella Pneumoniae Enterococcus faecium 08/12/16 16:55 Stool C. difficile DNA Amplification - Positive
[2016-08-18 13:49] LABS: BUN/Creatinine Ratio 22.22; Calcium 8.3 mg/dL (8.4-10.2); Chloride 99.7 mmol/L (98-107); Potassium 4.3 mmol/L (3.6-5.0)
--- NOTE | 2016-08-18 17:09 | Progress Note ---
Assessment and Plan - Patient Problems (1) Altered mental status Current Visit: Yes Status: Acute (2) Septic shock Current Visit: Yes Status: Acute Subjective Date of service: 08/18/16 Principal diagnosis: Polymicrobial bacteremia and sepsis; C. difficile infection Objective - Constitutional Vitals: Vital Signs - 12hr 08/18/16 08/18/16 08/18/16 05:15 05:25 05:30 Temperature Pulse Rate 82 82 82 Pulse Rate [ Anterior Bilateral Throughout] Respiratory 18 20 17 Rate Respiratory Rate [Anterior Bilateral Throughout] Respiratory Rate [sacrum] Blood Pressure 108/50 108/50 117/50 O2 Sat by Pulse 100 100 100 Oximetry 08/18/16 08/18/16 08/18/16 05:33 05:43 05:45 Temperature Pulse Rate 81 81 84 Pulse Rate [ Anterior Bilateral Throughout] Respiratory 15 20 24 Rate Respiratory Rate [Anterior Bilateral Throughout] Respiratory Rate [sacrum] Blood Pressure 117/50 117/50 117/50 O2 Sat by Pulse 100 100 100 Oximetry 08/18/16 08/18/16 08/18/16 05:58 06:00 06:01 Temperature Pulse Rate 77 82 79 Pulse Rate [ Anterior Bilateral Throughout] Respiratory 14 16 16 Rate Respiratory Rate [Anterior Bilateral Throughout] Respiratory Rate [sacrum] Blood Pressure 117/50 127/58 127/58 O2 Sat by Pulse 100 100 100 Oximetry 08/18/16 08/18/16 08/18/16 06:03 06:15 06:16 Temperature Pulse Rate 81 76 75 Pulse Rate [ Anterior Bilateral Throughout] Respiratory 22 14 13 Rate Respiratory Rate [Anterior Bilateral Throughout] Respiratory Rate [sacrum] Blood Pressure 127/58 117/50 127/58 O2 Sat by Pulse 100 100 100 Oximetry 08/18/16 08/18/16 08/18/16 06:30 06:45 07:00 Temperature Pulse Rate 75 75 77 Pulse Rate [ Anterior Bilateral Throughout] Respiratory 23 13 14 Rate Respiratory Rate [Anterior Bilateral Throughout] Respiratory Rate [sacrum] Blood Pressure 107/46 127/58 107/51 O2 Sat by Pulse 100 100 100 Oximetry 08/18/16 08/18/16 08/18/16 07:15 07:30 07:45 Temperature Pulse Rate 75 74 71 Pulse Rate [ Anterior Bilateral Throughout] Respiratory 14 13 13 Rate Respiratory Rate [Anterior Bilateral Throughout] Respiratory Rate [sacrum] Blood Pressure 107/46 107/46 107/46 O2 Sat by Pulse 100 100 100 Oximetry 08/18/16 08/18/16 08/18/16 07:57 08:00 08:07 Temperature 98.1 F Pulse Rate 76 Pulse Rate [ 75 77 Anterior Bilateral Throughout] Respiratory 15 Rate Respiratory 22 21 Rate [Anterior Bilateral Throughout] Respiratory Rate [sacrum] Blood Pressure 98/41 O2 Sat by Pulse 100 100 Oximetry 08/18/16 08/18/16 08/18/16 08:15 08:30 08:45 Temperature Pulse Rate 76 73 77 Pulse Rate [ Anterior Bilateral Throughout] Respiratory 12 15 13 Rate Respiratory Rate [Anterior Bilateral Throughout] Respiratory Rate [sacrum] Blood Pressure 98/41 95/42 95/42 O2 Sat by Pulse 100 100 100 Oximetry 08/18/16 08/18/16 08/18/16 09:01 09:07 09:15 Temperature Pulse Rate 92 H 91 H 89 Pulse Rate [ Anterior Bilateral Throughout] Respiratory 16 15 14 Rate Respiratory Rate [Anterior Bilateral Throughout] Respiratory Rate [sacrum] Blood Pressure 141/65 141/65 141/65 O2 Sat by Pulse 98 100 100 Oximetry 08/18/16 08/18/16 08/18/16 09:31 09:45 10:00 Temperature Pulse Rate 93 H 92 H 74 Pulse Rate [ Anterior Bilateral Throughout] Respiratory 17 15 18 Rate Respiratory Rate [Anterior Bilateral Throughout] Respiratory 15 Rate [sacrum] Blood Pressure 144/60 144/60 150/61 O2 Sat by Pulse 97 99 97 Oximetry 08/18/16 08/18/16 08/18/16 10:15 10:30 10:45 Temperature Pulse Rate 90 91 H 87 Pulse Rate [ Anterior Bilateral Throughout] Respiratory 16 14 14 Rate Respiratory Rate [Anterior Bilateral Throughout] Respiratory Rate [sacrum] Blood Pressure 150/61 147/61 147/61 O2 Sat by Pulse 99 96 98 Oximetry 08/18/16 08/18/16 08/18/16 11:00 11:04 11:15 Temperature Pulse Rate 86 86 Pulse Rate [ Anterior Bilateral Throughout] Respiratory 13 21 14 Rate Respiratory Rate [Anterior Bilateral Throughout] Respiratory Rate [sacrum] Blood Pressure 138/55 138/55 O2 Sat by Pulse 97 99 Oximetry 08/18/16 08/18/16 08/18/16 11:30 11:34 11:45 Temperature Pulse Rate 85 89 Pulse Rate [ Anterior Bilateral Throughout] Respiratory 13 15 14 Rate Respiratory Rate [Anterior Bilateral Throughout] Respiratory Rate [sacrum] Blood Pressure 132/45 138/55 O2 Sat by Pulse 96 99 Oximetry 08/18/16 08/18/16 08/18/16 12:00 12:15 12:31 Temperature 97.6 F Pulse Rate 87 93 H 95 H Pulse Rate [ Anterior Bilateral Throughout] Respiratory 16 16 21 Rate Respiratory Rate [Anterior Bilateral Throughout] Respiratory Rate [sacrum] Blood Pressure 121/65 121/65 137/67 O2 Sat by Pulse 99 100 99 Oximetry 08/18/16 08/18/16 08/18/16 12:45 13:00 13:15 Temperature Pulse Rate 91 H 88 82 Pulse Rate [ Anterior Bilateral Throughout] Respiratory 15 13 18 Rate Respiratory Rate [Anterior Bilateral Throughout] Respiratory Rate [sacrum] Blood Pressure 137/67 135/59 135/59 O2 Sat by Pulse 100 97 100 Oximetry 08/18/16 08/18/16 08/18/16 13:18 13:30 13:45 Temperature Pulse Rate 80 76 Pulse Rate [ Anterior Bilateral Throughout] Respiratory 15 16 11 L Rate Respiratory Rate [Anterior Bilateral Throughout] Respiratory Rate [sacrum] Blood Pressure 136/63 136/63 O2 Sat by Pulse 98 100 Oximetry 08/18/16 08/18/16 08/18/16 13:48 14:01 14:15 Temperature Pulse Rate 78 74 Pulse Rate [ Anterior Bilateral Throughout] Respiratory 11 L 14 11 L Rate Respiratory Rate [Anterior Bilateral Throughout] Respiratory Rate [sacrum] Blood Pressure 134/56 134/56 O2 Sat by Pulse 97 100 Oximetry 08/18/16 16:49 Temperature Pulse Rate Pulse Rate [ 69 Anterior Bilateral Throughout] Respiratory Rate Respiratory 16 Rate [Anterior Bilateral Throughout] Respiratory Rate [sacrum] Blood Pressure O2 Sat by Pulse Oximetry General appearance: Present: no acute distress, well-nourished - EENT Eyes: PERRL, EOM intact ENT: hearing intact, clear oral mucosa Ears: bilateral: normal - Neck Neck: supple, normal ROM - Respiratory Respiratory effort: normal Respiratory: bilateral: CTA - Breasts Breasts: normal - Cardiovascular Rhythm: regular Heart Sounds: Present: S1 & S2. Absent: gallop, rub Extremities: pulses intact, No edema, normal color, Full ROM - Gastrointestinal General gastrointestinal: Present: soft, non-tender, non-distended, normal bowel sounds - Genitourinary Female genitourinary: normal - Integumentary Integumentary: clear, warm, dry - Musculoskeletal Musculoskeletal: 1, strength equal bilaterally - Neurologic Neurologic: moves all extremities - Psychiatric Psychiatric: memory intact, appropriate mood/affect, intact judgment & insight - Labs CBC & Chem 7: 08/17/16 08:40 08/18/16 13:16 Labs: Abnormal lab results 08/17/16 08/17/16 08/17/16 Range/Units 12:11 15:34 17:40 Carbon Dioxide (22-30) mmol/L BUN (7-17) mg/dL Creatinine (0.7-1.2) mg/dL Glucose (65-100) mg/dL POC Glucose 345 H < 40 L 403 H (70-105) Calcium (8.4-10.2) mg/dL 08/17/16 08/18/16 08/18/16 Range/Units 20:07 00:16 05:03 Carbon Dioxide (22-30) mmol/L BUN (7-17) mg/dL Creatinine (0.7-1.2) mg/dL Glucose (65-100) mg/dL POC Glucose 439 H 457 H 388 H (70-105) Calcium (8.4-10.2) mg/dL 08/18/16 Range/Units 13:16 Carbon Dioxide 15 L (22-30) mmol/L BUN 100 H (7-17) mg/dL Creatinine 4.5 H (0.7-1.2) mg/dL Glucose 286 H (65-100) mg/dL POC Glucose (70-105) Calcium 8.3 L (8.4-10.2) mg/dL
[2016-08-19] MEDS: KEPPRA PO SCH ×2 (00:10→12:04)
[2016-08-19] MEDS: NOVOLOG SUB-Q SCH ×4 (02:17→17:52)
[2016-08-19] MEDS: FLAGYL PO SCH ×2 (06:40→13:25)
[2016-08-19] MEDS: DILAUDID IV PRN ×2 (06:41→13:25)
[2016-08-19] MEDS: DUONEB 0.5 MG-3 MG/3 ML SOLN IH SCH ×3 (08:04→20:51)
--- NOTE | 2016-08-19 09:27 | XRay Report ---
Portable chest: Comparison is made to most recent prior study of August 14. There is persistent focal atelectasis adjacent to the lower right hilum. Hemidiaphragms are elevated. The lungs otherwise appear generally clear. There has been interval removal of a triple-lumen catheter. Impression: Persistent right atelectasis. Possible catheter removal.
--- NOTE | 2016-08-19 11:05 | Progress Note ---
Assessment and Plan Impression: * ESRD * Catheter related bacteremia, Enterococcus faecium, Klebsiella pneumoniae --Surveillence cx (08/16) - Enterococcus * C diff colitis * Sacral decubitus ulcer * Type II DM * Hypertension * Anemia in ESRD * Metabolic acidosis secondary to uremia Plan: * Persistent bacteremia. Will order TTE, may need NILSON * AM BMP pending * Vascath placement tomorrow as cx remain positive; no permcath for now * Abx per ID - Meropenem/Zyvox/Flagyl * Strict I/O * Dose medications for renal function Subjective Date of service: 08/19/16 Principal diagnosis: Polymicrobial bacteremia and sepsis; C. difficile infection Interval history: Patient transferred to floor. No acute events overnight. Objective - Vital Signs Vital signs: Vital Signs - 12hr 08/18/16 08/18/16 08/19/16 23:03 23:13 01:12 Temperature 97.4 F L Pulse Rate Pulse Rate [ 80 82 Anterior Bilateral Throughout] Pulse Rate [ 78 From Monitor] Respiratory 18 Rate Respiratory 14 20 Rate [Anterior Bilateral Throughout] Blood Pressure 130/59 [Left Arm] O2 Sat by Pulse 99 Oximetry 08/19/16 08/19/16 08/19/16 02:05 06:17 06:41 Temperature 97.5 F L Pulse Rate 73 Pulse Rate [ Anterior Bilateral Throughout] Pulse Rate [ 92 H From Monitor] Respiratory 12 20 20 Rate Respiratory Rate [Anterior Bilateral Throughout] Blood Pressure 134/62 [Left Arm] O2 Sat by Pulse 100 98 Oximetry 08/19/16 08/19/16 08:04 08:15 Temperature Pulse Rate Pulse Rate [ 99 H 90 Anterior Bilateral Throughout] Pulse Rate [ From Monitor] Respiratory Rate Respiratory 16 18 Rate [Anterior Bilateral Throughout] Blood Pressure [Left Arm] O2 Sat by Pulse 100 Oximetry - General Appearance General appearance: well-developed, well-nourished EENT: ATNC Respiratory: Present: Clear to Ascultation Cardiology: regular, S1S2 Gastrointestinal: normal, no tenderness, no distended Integumentary: no rash Musculoskeletal: other (no edema) Psychiatric: cooperative - Lab 08/19/16 12:23 08/18/16 13:16 Most recent lab results Calcium 8.3 mg/dL (8.4-10.2) L 08/18/16 13:16 Magnesium 2.2 mg/dL (1.7-2.3) 08/11/16 15:28
[2016-08-19] MEDS: ZYVOX PO SCH (12:03)
[2016-08-19] MEDS: HEPARIN SUB-Q SCH (12:04)
[2016-08-19] MEDS: LEVEMIR SUB-Q SCH (12:05)
[2016-08-19] MEDS: PEPCID PO SCH (12:05)
[2016-08-19 12:28] LABS: Hematocrit 30.5 % (30.3-42.9); Hemoglobin 9.7 gm/dl (10.1-14.3); Mean Corpuscular HGB Conc 32 % (30-34); Mean Corpuscular Hemoglobin 28 pg (28-32); Mean Corpuscular Volume 88 fl (79-97); Platelet Count 381 K/mm3 (140-440); Red Blood Count 3.45 M/mm3 (3.65-5.03); Red Cell Distribution Width 18.6 % (13.2-15.2)
[2016-08-19 12:35] LABS: White Blood Count 30.9 K/mm3 (4.5-11.0)
--- NOTE | 2016-08-19 12:38 | Progress Note ---
Assessment and Plan - Patient Problems (1) Altered mental status Current Visit: Yes Status: Acute (2) Septic shock Current Visit: Yes Status: Acute (3) Clostridium difficile colitis Current Visit: Yes Status: Acute (4) Lactic acidosis Current Visit: Yes Status: Acute (5) Leukocytosis Current Visit: Yes Status: Acute (6) Sepsis due to Klebsiella Current Visit: Yes Status: Acute Subjective Date of service: 08/19/16 Principal diagnosis: Polymicrobial bacteremia and sepsis; C. difficile infection Interval history: Doing better Afebrile Objective - Constitutional Vitals: Vital Signs - 12hr 08/19/16 08/19/16 08/19/16 01:12 02:05 06:17 Temperature 97.4 F L 97.5 F L Pulse Rate 73 Pulse Rate [ Anterior Bilateral Throughout] Pulse Rate [ 78 92 H From Monitor] Respiratory 18 12 20 Rate Respiratory Rate [Anterior Bilateral Throughout] Blood Pressure 130/59 134/62 [Left Arm] O2 Sat by Pulse 99 100 98 Oximetry 08/19/16 08/19/16 08/19/16 06:41 08:04 08:15 Temperature Pulse Rate Pulse Rate [ 99 H 90 Anterior Bilateral Throughout] Pulse Rate [ From Monitor] Respiratory 20 Rate Respiratory 16 18 Rate [Anterior Bilateral Throughout] Blood Pressure [Left Arm] O2 Sat by Pulse 100 Oximetry 08/19/16 11:33 Temperature 96.4 F L Pulse Rate Pulse Rate [ Anterior Bilateral Throughout] Pulse Rate [ 95 H From Monitor] Respiratory 22 Rate Respiratory Rate [Anterior Bilateral Throughout] Blood Pressure 176/79 [Left Arm] O2 Sat by Pulse 96 Oximetry General appearance: Present: no acute distress, well-nourished - EENT Eyes: PERRL, EOM intact ENT: hearing intact, clear oral mucosa Ears: bilateral: normal - Neck Neck: supple, normal ROM - Respiratory Respiratory effort: normal Respiratory: bilateral: CTA - Breasts Breasts: normal - Cardiovascular Rhythm: regular Heart Sounds: Present: S1 & S2. Absent: gallop, rub Extremities: pulses intact, No edema, normal color, Full ROM - Gastrointestinal General gastrointestinal: Present: soft, non-tender, non-distended, normal bowel sounds - Genitourinary Female genitourinary: normal - Integumentary Integumentary: clear, warm, dry - Musculoskeletal Musculoskeletal: 1, strength equal bilaterally - Neurologic Neurologic: moves all extremities - Psychiatric Psychiatric: memory intact, appropriate mood/affect, intact judgment & insight - Labs CBC & Chem 7: 08/19/16 12:23 08/18/16 13:16 Labs: Abnormal lab results 08/18/16 08/18/16 08/18/16 Range/Units 12:34 13:16 17:50 WBC (4.5-11.0) K/mm3 RBC (3.65-5.03) M/mm3 Hgb (10.1-14.3) gm/dl RDW (13.2-15.2) % Carbon Dioxide 15 L (22-30) mmol/L BUN 100 H (7-17) mg/dL Creatinine 4.5 H (0.7-1.2) mg/dL Glucose 286 H (65-100) mg/dL POC Glucose 313 H 195 H (70-105) Calcium 8.3 L (8.4-10.2) mg/dL 08/19/16 08/19/16 Range/Units 02:14 12:23 WBC 30.9 H (4.5-11.0) K/mm3 RBC 3.45 L (3.65-5.03) M/mm3 Hgb 9.7 L (10.1-14.3) gm/dl RDW 18.6 H (13.2-15.2) % Carbon Dioxide (22-30) mmol/L BUN (7-17) mg/dL Creatinine (0.7-1.2) mg/dL Glucose (65-100) mg/dL POC Glucose 118 H (70-105) Calcium (8.4-10.2) mg/dL
[2016-08-19 12:51] LABS: Calcium 8.5 mg/dL (8.4-10.2); Chloride 98.5 mmol/L (98-107); Potassium 4.6 mmol/L (3.6-5.0)
[2016-08-19 13:02] LABS: BUN/Creatinine Ratio 23.2
--- NOTE | 2016-08-19 13:07 | Progress Note ---
Assessment and Plan Patient transfered to telemetry.Patients condition same. Patient awake, weak, No acute respiratory distress. Patient placed on 2 litres O2 , O2 satuaration 96 % - Patient Problems (1) Sepsis due to Klebsiella Current Visit: Yes Status: Acute Plan to address problem: Patient is on Linozelid, merepenum and Metranidazole. Antibiotics as per infectious disease specialists. (2) Septic shock Current Visit: Yes Status: Acute Plan to address problem: Improving. Patient is on norepinephrine. Continue present I/V Fluids NSS. Continue present antibiotics. Linozelid, merepenum and metranidazole. Continue Hydrocortizone. 08/19/16 Patient off the norepinephrine. (3) Clostridium difficile colitis Current Visit: Yes Status: Acute Plan to address problem: Patient is on Metranidazole. Management as per infectious diseases. (4) Altered mental status Current Visit: Yes Status: Acute Plan to address problem: Management as per primary care. (5) End stage renal disease Current Visit: Yes Status: Chronic Plan to address problem: Management as per nephrology. (6) Lactic acidosis Current Visit: Yes Status: Acute Plan to address problem: Bicarb is 16, patient compensated. Obtaining blood gases. (7) Seizure disorder Current Visit: Yes Status: Chronic Plan to address problem: Patient is on Keppra. Subjective Date of service: 08/19/16 Principal diagnosis: Polymicrobial bacteremia and sepsis; C. difficile infection Interval history: Patient transfered to telemetry.Patients condition same. Patient awake, weak, No acute respiratory distress. Patient placed on 2 litres O2 , O2 satuaration 96 % Objective Vital Signs - 12hr 08/19/16 08/19/16 08/19/16 01:12 02:05 06:17 Temperature 97.4 F L 97.5 F L Pulse Rate 73 Pulse Rate [ Anterior Bilateral Throughout] Pulse Rate [ 78 92 H From Monitor] Respiratory 18 12 20 Rate Respiratory Rate [Anterior Bilateral Throughout] Blood Pressure 130/59 134/62 [Left Arm] O2 Sat by Pulse 99 100 98 Oximetry 08/19/16 08/19/16 08/19/16 06:41 08:04 08:15 Temperature Pulse Rate Pulse Rate [ 99 H 90 Anterior Bilateral Throughout] Pulse Rate [ From Monitor] Respiratory 20 Rate Respiratory 16 18 Rate [Anterior Bilateral Throughout] Blood Pressure [Left Arm] O2 Sat by Pulse 100 Oximetry 08/19/16 11:33 Temperature 96.4 F L Pulse Rate Pulse Rate [ Anterior Bilateral Throughout] Pulse Rate [ 95 H From Monitor] Respiratory 22 Rate Respiratory Rate [Anterior Bilateral Throughout] Blood Pressure 176/79 [Left Arm] O2 Sat by Pulse 96 Oximetry Constitutional: no acute distress, lethargic Eyes: non-icteric ENT: oropharynx moist Neck: supple Effort: normal Ascultation: Bilateral: diminished breath sounds Cardiovascular: regular rate and rhythm Gastrointestinal: normoactive bowel sounds Extremities: no cyanosis, no edema Neurologic: pupils equal and round, unable to assess Psychiatric: depressed, other CBC and BMP: 08/19/16 12:23 08/19/16 12:23 ABG, PT/INR, D-dimer: ABG POC ABG pH 7.444 (7.35-7.45) 08/12/16 15:23 POC ABG pCO2 29.4 (35-45) L 08/12/16 15:23 POC ABG pO2 51 (80-105) L 08/12/16 15:23 POC ABG HCO3 20.2 08/12/16 15:23 POC ABG Total CO2 21 08/12/16 15:23 POC ABG O2 Sat 88 08/12/16 15:23 PT/INR, D-dimer D-Dimer 5042.20 ng/mlDDU (0-234) H 08/12/16 16:18 Abnormal lab findings: Abnormal Labs 08/11/16 08/11/16 08/12/16 19:45 23:01 02:35 WBC RBC Hgb Hct RDW Seg Neuts % (Manual) Lymphocytes % (Manual) Monocytes % (Manual) Seg Neutrophils # Man Monocytes # (Manual) Eosinophils # (Manual) D-Dimer POC ABG pCO2 POC ABG pO2 Sodium Potassium Chloride Carbon Dioxide BUN Creatinine Glucose POC Glucose 307 H Lactic Acid 3.5 H* Calcium TIBC Ferritin Lactate Dehydrogenase Vitamin B12 Crossmatch See Detail 08/12/16 08/12/16 08/12/16 05:30 05:30 11:09 WBC 38.6 H RBC 3.14 L Hgb 8.7 L Hct 28.1 L D RDW 18.3 H Seg Neuts % (Manual) Lymphocytes % (Manual) 9.0 L Monocytes % (Manual) 8.0 H Seg Neutrophils # Man 16.6 H Monocytes # (Manual) 3.1 H Eosinophils # (Manual) 1.2 H D-Dimer POC ABG pCO2 POC ABG pO2 Sodium 133 L Potassium 3.0 L Chloride 92.4 L Carbon Dioxide 21 L BUN 44 H Creatinine 2.3 H Glucose 270 H POC Glucose 247 H Lactic Acid Calcium 8.2 L TIBC Ferritin Lactate Dehydrogenase Vitamin B12 Crossmatch 08/12/16 08/12/16 08/12/16 12:16 12:16 12:16 WBC RBC Hgb Hct RDW Seg Neuts % (Manual) Lymphocytes % (Manual) Monocytes % (Manual) Seg Neutrophils # Man Monocytes # (Manual) Eosinophils # (Manual) D-Dimer POC ABG pCO2 POC ABG pO2 Sodium Potassium Chloride Carbon Dioxide BUN Creatinine Glucose POC Glucose Lactic Acid Calcium TIBC Ferritin 2000.0 H Lactate Dehydrogenase 276 H Vitamin B12 1117 H Crossmatch 08/12/16 08/12/16 08/12/16 12:16 15:23 16:18 WBC RBC Hgb Hct RDW Seg Neuts % (Manual) Lymphocytes % (Manual) Monocytes % (Manual) Seg Neutrophils # Man Monocytes # (Manual) Eosinophils # (Manual) D-Dimer 5042.20 H POC ABG pCO2 29.4 L POC ABG pO2 51 L Sodium Potassium Chloride Carbon Dioxide BUN Creatinine Glucose POC Glucose Lactic Acid Calcium TIBC 101 L Ferritin Lactate Dehydrogenase Vitamin B12 Crossmatch 08/12/16 08/12/16 08/13/16 17:45 23:36 06:58 WBC RBC Hgb Hct RDW Seg Neuts % (Manual) Lymphocytes % (Manual) Monocytes % (Manual) Seg Neutrophils # Man Monocytes # (Manual) Eosinophils # (Manual) D-Dimer POC ABG pCO2 POC ABG pO2 Sodium Potassium Chloride Carbon Dioxide BUN Creatinine Glucose POC Glucose 196 H 170 H 199 H Lactic Acid Calcium TIBC Ferritin Lactate Dehydrogenase Vitamin B12 Crossmatch 08/13/16 08/13/16 08/13/16 11:25 16:29 21:10 WBC RBC Hgb Hct RDW Seg Neuts % (Manual) Lymphocytes % (Manual) Monocytes % (Manual) Seg Neutrophils # Man Monocytes # (Manual) Eosinophils # (Manual) D-Dimer POC ABG pCO2 POC ABG pO2 Sodium Potassium Chloride Carbon Dioxide BUN Creatinine Glucose POC Glucose 267 H 277 H 203 H Lactic Acid Calcium TIBC Ferritin Lactate Dehydrogenase Vitamin B12 Crossmatch 08/13/16 08/13/16 08/14/16 Unknown Unknown 07:42 WBC 30.0 H RBC 2.75 L Hgb 7.8 L Hct 24.0 L RDW 18.4 H Seg Neuts % (Manual) 75.0 H Lymphocytes % (Manual) 7.0 L Monocytes % (Manual) Seg Neutrophils # Man 22.5 H Monocytes # (Manual) Eosinophils # (Manual) D-Dimer POC ABG pCO2 POC ABG pO2 Sodium 133 L Potassium 3.4 L Chloride 95.2 L Carbon Dioxide 18 L BUN 58 H Creatinine 2.9 H Glucose 201 H POC Glucose 306 H Lactic Acid Calcium 8.2 L TIBC Ferritin Lactate Dehydrogenase Vitamin B12 Crossmatch 08/14/16 08/14/16 08/14/16 08:26 08:26 11:19 WBC 28.9 H RBC 2.92 L Hgb 8.2 L Hct 25.9 L RDW 18.8 H Seg Neuts % (Manual) 85.5 H Lymphocytes % (Manual) 4.5 L Monocytes % (Manual) Seg Neutrophils # Man 24.7 H Monocytes # (Manual) 0.9 H Eosinophils # (Manual) D-Dimer POC ABG pCO2 POC ABG pO2 Sodium Potassium Chloride Carbon Dioxide 15 L BUN 77 H Creatinine 3.5 H Glucose 289 H POC Glucose 274 H Lactic Acid Calcium 8.3 L TIBC Ferritin Lactate Dehydrogenase Vitamin B12 Crossmatch 08/14/16 08/14/16 08/15/16 15:56 21:12 06:00 WBC 30.1 H RBC 2.67 L Hgb 7.8 L Hct 23.4 L RDW 18.4 H Seg Neuts % (Manual) 86.0 H Lymphocytes % (Manual) 4.0 L Monocytes % (Manual) Seg Neutrophils # Man 25.9 H Monocytes # (Manual) 1.8 H Eosinophils # (Manual) D-Dimer POC ABG pCO2 POC ABG pO2 Sodium Potassium Chloride Carbon Dioxide BUN Creatinine Glucose POC Glucose 284 H 357 H Lactic Acid Calcium TIBC Ferritin Lactate Dehydrogenase Vitamin B12 Crossmatch 08/15/16 08/15/16 08/15/16 06:00 11:17 16:43 WBC RBC Hgb Hct RDW Seg Neuts % (Manual) Lymphocytes % (Manual) Monocytes % (Manual) Seg Neutrophils # Man Monocytes # (Manual) Eosinophils # (Manual) D-Dimer POC ABG pCO2 POC ABG pO2 Sodium Potassium 3.5 L Chloride 96.6 L Carbon Dioxide 21 L BUN 51 H Creatinine 2.6 H Glucose 214 H POC Glucose 280 H 257 H Lactic Acid Calcium 8.3 L TIBC Ferritin Lactate Dehydrogenase Vitamin B12 Crossmatch 08/15/16 08/16/16 08/16/16 23:40 05:25 07:20 WBC RBC Hgb Hct RDW Seg Neuts % (Manual) Lymphocytes % (Manual) Monocytes % (Manual) Seg Neutrophils # Man Monocytes # (Manual) Eosinophils # (Manual) D-Dimer POC ABG pCO2 POC ABG pO2 Sodium Potassium Chloride Carbon Dioxide BUN Creatinine Glucose POC Glucose 179 H 140 H 147 H Lactic Acid Calcium TIBC Ferritin Lactate Dehydrogenase Vitamin B12 Crossmatch 08/16/16 08/16/16 08/16/16 09:20 09:20 11:28 WBC 35.1 H RBC 2.78 L Hgb 7.9 L Hct 24.7 L RDW 18.5 H Seg Neuts % (Manual) Lymphocytes % (Manual) Monocytes % (Manual) Seg Neutrophils # Man Monocytes # (Manual) Eosinophils # (Manual) D-Dimer POC ABG pCO2 POC ABG pO2 Sodium 136 L Potassium 3.5 L Chloride Carbon Dioxide 17 L BUN 62 H Creatinine 3.3 H Glucose 128 H POC Glucose 150 H Lactic Acid Calcium 7.7 L TIBC Ferritin Lactate Dehydrogenase Vitamin B12 Crossmatch 08/16/16 08/16/16 08/17/16 15:39 23:45 05:03 WBC RBC Hgb Hct RDW Seg Neuts % (Manual) Lymphocytes % (Manual) Monocytes % (Manual) Seg Neutrophils # Man Monocytes # (Manual) Eosinophils # (Manual) D-Dimer POC ABG pCO2 POC ABG pO2 Sodium Potassium Chloride Carbon Dioxide BUN Creatinine Glucose POC Glucose 106 H 156 H 287 H Lactic Acid Calcium TIBC Ferritin Lactate Dehydrogenase Vitamin B12 Crossmatch 08/17/16 08/17/16 08/17/16 08:40 08:40 12:11 WBC 37.0 H RBC 2.91 L Hgb 8.3 L Hct 25.8 L RDW 18.5 H Seg Neuts % (Manual) Lymphocytes % (Manual) Monocytes % (Manual) Seg Neutrophils # Man Monocytes # (Manual) Eosinophils # (Manual) D-Dimer POC ABG pCO2 POC ABG pO2 Sodium 136 L Potassium Chloride 96.0 L Carbon Dioxide 16 L BUN 78 H Creatinine 4.0 H Glucose 330 H POC Glucose 345 H Lactic Acid Calcium 8.3 L TIBC Ferritin Lactate Dehydrogenase Vitamin B12 Crossmatch 08/17/16 08/17/16 08/17/16 15:34 17:40 20:07 WBC RBC Hgb Hct RDW Seg Neuts % (Manual) Lymphocytes % (Manual) Monocytes % (Manual) Seg Neutrophils # Man Monocytes # (Manual) Eosinophils # (Manual) D-Dimer POC ABG pCO2 POC ABG pO2 Sodium Potassium Chloride Carbon Dioxide BUN Creatinine Glucose POC Glucose < 40 L 403 H 439 H Lactic Acid Calcium TIBC Ferritin Lactate Dehydrogenase Vitamin B12 Crossmatch 08/18/16 08/18/16 08/18/16 00:16 05:03 12:34 WBC RBC Hgb Hct RDW Seg Neuts % (Manual) Lymphocytes % (Manual) Monocytes % (Manual) Seg Neutrophils # Man Monocytes # (Manual) Eosinophils # (Manual) D-Dimer POC ABG pCO2 POC ABG pO2 Sodium Potassium Chloride Carbon Dioxide BUN Creatinine Glucose POC Glucose 457 H 388 H 313 H Lactic Acid Calcium TIBC Ferritin Lactate Dehydrogenase Vitamin B12 Crossmatch 08/18/16 08/18/16 08/19/16 13:16 17:50 02:14 WBC RBC Hgb Hct RDW Seg Neuts % (Manual) Lymphocytes % (Manual) Monocytes % (Manual) Seg Neutrophils # Man Monocytes # (Manual) Eosinophils # (Manual) D-Dimer POC ABG pCO2 POC ABG pO2 Sodium Potassium Chloride Carbon Dioxide 15 L BUN 100 H Creatinine 4.5 H Glucose 286 H POC Glucose 195 H 118 H Lactic Acid Calcium 8.3 L TIBC Ferritin Lactate Dehydrogenase Vitamin B12 Crossmatch 08/19/16 08/19/16 12:23 12:23 WBC 30.9 H RBC 3.45 L Hgb 9.7 L Hct RDW 18.6 H Seg Neuts % (Manual) Lymphocytes % (Manual) Monocytes % (Manual) Seg Neutrophils # Man Monocytes # (Manual) Eosinophils # (Manual) D-Dimer POC ABG pCO2 POC ABG pO2 Sodium Potassium Chloride Carbon Dioxide 16 L BUN 116 H Creatinine 5.0 H Glucose 102 H POC Glucose Lactic Acid Calcium TIBC Ferritin Lactate Dehydrogenase Vitamin B12 Crossmatch Chest x-ray: report reviewed (Focal atelectasis. Close to right hilum.), image reviewed Allied health notes reviewed: nursing
[2016-08-19 13:40] LABS: Basophils % (Manual) 0 % (0.0-1.8); Blastocytes % (Manual) 0 %; Eosinophils % (Manual) 0 % (0.0-4.3)
[2016-08-19 13:41] LABS: Anisocytosis 1+; Target Cells Rare
[2016-08-19 13:42] LABS: Diff Status Complete; Platelet Clumps Few
[2016-08-19] MEDS: SODIUM BICARBONATE PO SCH (14:10)
[2016-08-19] MEDS: SODIUM BICARBONATE FEEDTUBE PRN (14:27)
[2016-08-19] MEDS: MERREM 1,000 MG in NACL 0.9% 100 ML IV SCH (15:00)
--- NOTE | 2016-08-19 15:17 | Progress Note ---
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 Patient is currently on blood pressure support. Admitting blood cultures are growing blood cultures Gram positive cocci in pairs and Gram negative rods. Problem list: 1. Polymicrobial bacteremia and sepsis -08/16 blood cultures with Enterococcal species in 4 of 4 bottles which will likely be persistent VRE bacteremia -08/11 blood cultures with 4/4 bottles with ESBL Klebsiella pneumoniae and Vancomycin resistant Enterococcus faecium -Review is permacath source (removed 08/15) 2. Left chest wall permacath infection -Status post removal 08/15 -Tip culture grew Proteus mirabilis and VRE faecium 3. C. diff. infection -Toxin assay positive 08/13 -Diarrhea improved 4. Leukocytosis -Marked elevation to 51,000 -Multifactorial with bacteremia & C diff infection -Slowly trending downward. 5. Presacral pressure sore -Uninfected at present 6. End-stage renal failure -Left chest PermCath - removal 08/15 7. Status post right hemispheral stroke -Left hemiplegia 8. Lactic acidosis -Secondary to #1 -Resolved 8. Type 2 DM PLAN: 1. Continue Meropenem versus the ESBL Klebsiella blood isolate 2. Continue linezolid versus the VRE 3. Continue enteral Flagyl vs C diff infection 4. Glycemic control as per the primary team 5. Recheck blood cultures and see if bacteremia has cleared 6. Continue C. difficile & VRE isolation precautions Arash Bennett MD [facility] Office: [phone] Subjective Date of service: 08/19/16 Principal diagnosis: Polymicrobial bacteremia and sepsis; C. difficile infection Interval history: No obvious complaints. No acute distress. Remains confused and somewhat agitated. ROS: not reliable. Objective - Exam Narrative Exam: GENERAL: Well-developed, chronically ill-appearing female who is alert and in no acute distress, calling out for the nurse. HEENT: Pupils are equal reactive to light and accommodation. Conjunctiva clear. Bilateral arcus senilis. Oropharynx is normal with no evidence of oral candidiasis or pharyngitis. Patient is edentulous. NECK: Supple. No enlargement of the thyroid gland. No significant cervical lymphadenopathy. No jugular venous distention at 30. LUNGS: Clear with no adventitious sounds. CHEST: Previous left vas cath with no signs of infection. Not tender to palpation and no drainage visible. HEART: Regular rate. S1 and S2 are normal. There are no gallops, clicks or rubs heard. II/ JOSEPHINE heard best over the LUSB. No diastolic murmur. ABDOMEN: Soft and nontender. Liver and spleen are not palpably enlarged or tender. No palpable masses. Bowel sounds are normoactive. PEG site is clean with no signs of infection. : Normal external female. No Rico catheter. EXTREMITIES: No rash, peripheral lymphadenopathy, clubbing or edema. SKIN: Dressings noted to the feet bilat that are clean and dry. these are not removed. Previous Stage II sacral pressure sore with no signs of infection are not seen today. NEUROLOGIC: Left hemiplegia. Alert. Oriented to person only. - Constitutional Vitals: Vital Signs Temp Pulse Resp BP Pulse Ox 96.4 F L 95 H 15 176/79 96 08/19/16 11:33 08/19/16 11:33 08/19/16 13:25 08/19/16 11:33 08/19/16 11:33 Temperature -Last 24 Hours Temperature 96.4 F Temperature 97.5 F Temperature 97.4 F Temperature 97.6 F Temperature 97.8 F - Labs CBC & Chem 7: 08/19/16 12:23 08/19/16 12:23 Labs: Abnormal lab results Microbiology 08/16/16 10:42 Peripheral/Venous Blood Culture - 2/2 bottles with Enterococcal species 08/16/16 10:28 Peripheral/Venous Blood Culture - 2/2 bottles with Enterococcal species 08/15/16 Unknown Vascular Cath Catheter Tip Culture Proteus mirabilis (only resistant to quinolones) Vancomycin resistant Enterococcus faecium 08/12/16 11:41 Vascular Cath Blood Culture - Preliminary Klebsiella Pneumoniae (ESBL strain, quinolone resistant, carbapenem sensitive) Enterococcus faecium (Vancomycin resistant) 08/12/16 11:41 Peripheral/Venous Blood Culture - 2/2 bottles with Enterococcus faecium (Vancomycin & penicillin resistant) 08/11/16 18:31 Peripheral/Venous Blood Culture - Preliminary Klebsiella Pneumoniae Enterococcus faecium 08/11/16 18:31 Peripheral/Venous Blood Culture - Preliminary Klebsiella Pneumoniae Enterococcus faecium 08/12/16 16:55 Stool C. difficile DNA Amplification - Positive
[2016-08-19] MEDS: MORPHINE IV PRN (16:47)
[2016-08-20] MEDS: KEPPRA PO SCH ×2 (00:03→12:26)
[2016-08-20] MEDS: FLAGYL PO SCH ×2 (00:03→06:20)
[2016-08-20] MEDS: HEPARIN SUB-Q SCH (00:03)
[2016-08-20] MEDS: SODIUM BICARBONATE PO SCH ×2 (00:04→18:07)
[2016-08-20] MEDS: DILAUDID IV PRN ×3 (00:16→18:07)
[2016-08-20] MEDS: NOVOLOG SUB-Q SCH ×3 (00:18→18:08)
[2016-08-20] MEDS: ZYVOX PO SCH ×2 (00:36→18:08)
[2016-08-20] MEDS: MORPHINE IV PRN ×3 (04:14→21:03)
[2016-08-20 08:18] LABS: Hematocrit 30.7 % (30.3-42.9); Hemoglobin 9.7 gm/dl (10.1-14.3); Mean Corpuscular HGB Conc 32 % (30-34); Mean Corpuscular Hemoglobin 28 pg (28-32); Mean Corpuscular Volume 89 fl (79-97); Platelet Count 348 K/mm3 (140-440); Red Blood Count 3.45 M/mm3 (3.65-5.03); Red Cell Distribution Width 18.7 % (13.2-15.2)
[2016-08-20 08:27] LABS: White Blood Count 28.6 K/mm3 (4.5-11.0)
[2016-08-20 08:33] LABS: Calcium 8.1 mg/dL (8.4-10.2); Chloride 99.2 mmol/L (98-107); Potassium 4.9 mmol/L (3.6-5.0)
[2016-08-20 08:47] LABS: BUN/Creatinine Ratio 26.27
[2016-08-20] MEDS: DUONEB 0.5 MG-3 MG/3 ML SOLN IH SCH ×4 (08:51→19:48)
[2016-08-20 09:19] LABS: Basophils % (Manual) 0 % (0.0-1.8); Blastocytes % (Manual) 0 %; Eosinophils % (Manual) 0 % (0.0-4.3)
[2016-08-20 09:20] LABS: Anisocytosis 1+
[2016-08-20 09:22] LABS: Diff Status Complete
--- NOTE | 2016-08-20 09:48 | Progress Note ---
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 Patient is currently on blood pressure support. Admitting blood cultures are growing blood cultures Gram positive cocci in pairs and Gram negative rods. Problem list: 1. Polymicrobial bacteremia and sepsis, central venous catheter associated, permacath removed on 08/15/16. Enterococcus faecium and ESBL Klebsiella pneumoniae grew in blood culture. Patient had persistent bacteremia from 08/11- 08/16. The Enterococcus faecium grew in blood cultures on 08/16/16. -I would like to obtain an echocardiogram to rule out endovascular infection. -I would rather use daptomycin over linezolid for the Enterococcus faecium, daptomycin is bacteriacidal vs linezolid is bacteriastatic -will check with microbiology to make sure it is sensitive. 2. Left chest wall permacath infection -Status post removal 08/15 -Tip culture grew Proteus mirabilis and VRE faecium 3. C. diff. infection -Toxin assay positive 08/13 -Diarrhea persist with elevated wbc -will switch flagyl to po vancomycin 4. Leukocytosis -Marked elevation to 51,000 -Multifactorial with bacteremia & C diff infection -elevated at 28.6 5. Presacral pressure sore -Uninfected at present 6. End-stage renal failure -Left chest PermCath - removal 08/15 7. Status post right hemispheral stroke -Left hemiplegia 8. Lactic acidosis -Secondary to #1 -Resolved PLAN: 1. continue linezolid for now, will review information with microbiology 2. continue Meropenem versus the ESBL Klebsiella blood isolate 3. discontinue metronidazole, start vancomycin 250mg po Q6H per PEG 4. obtain echocardiogram 5. follow up repeat blood culture done on 08/19/16 Subjective Date of service: 08/20/16 Principal diagnosis: Polymicrobial bacteremia and sepsis; C. difficile infection Interval history: Patient seen in bed comfortable, no complaints. She is more alert and cooperative. Objective - Constitutional Vitals: Selected Entries 08/20/16 08/20/16 08/20/16 07:41 08:52 08:57 Temperature 97.4 F L Pulse Rate [ 99 H Anterior Bilateral Throughout] Respiratory 18 Rate [Anterior Bilateral Throughout] O2 Sat by Pulse 99 Oximetry Blood Pressure 177/85 [Left Arm] Blood Pressure 115 Mean [Left Arm] General appearance: Present: no acute distress, well-nourished - EENT Eyes: EOM intact, no scleral icterus, no conjunctival injection ENT: hearing intact, edentulous Ears: bilateral: normal - Neck Neck: supple, no enlarged thyroid, no masses or JVD - Respiratory Respiratory effort: normal Respiratory: bilateral: CTA - Breasts Breasts: deferred - Cardiovascular Rhythm: regularly irregular Heart Sounds: Present: S1 & S2 Extremities: normal temperature, abnormal Extremity abnormal: edema, other (right arm picc line) - Gastrointestinal General gastrointestinal: Present: soft, non-tender, normal bowel sounds Rectal Exam: other (rectal tube in place) - Genitourinary Female genitourinary: deferred - Integumentary Integumentary: clear, warm, dry, no jaundice, no rash - Psychiatric Psychiatric: cooperative - Labs CBC & Chem 7: 08/20/16 07:55 08/20/16 07:55 Labs: Microbiology 08/16/16 10:42 Peripheral/Venous Blood Culture - Final Enterococcus Faecium 08/19/16 16:48 Peripheral/Venous Blood Culture - Preliminary Culture in Progress 08/19/16 16:48 Peripheral/Venous Blood Culture - Preliminary Culture in Progress 08/16/16 10:28 Peripheral/Venous Blood Culture - Preliminary Enterococcus Faecium 08/15/16 Unknown Vascular Cath Catheter Tip Culture - Preliminary Proteus Mirabilis Enterococcus Faecium Laboratory Tests 08/11/16 08/20/16 08/20/16 15:17 07:55 07:55 WBC 28.6 H Plt Count 348 Creatinine 5.1 H Glucose 284 H Urine WBC (Auto) > 182.0 H
--- NOTE | 2016-08-20 11:59 | Progress Note ---
Assessment and Plan Assessment and plan: 1. Polymicrobial sepsis ID input appreciated, vas cath was removed, continue antibiotics Follow-up echocardiogram 2. C. difficile Continue PO vanco 3. End-stage renal disease HD per renal 4. Sacral decubitus-not currently infected Continue wound care 5. Diabetes Optimize insulins History Interval history: Her nurse notes that she's been confused and talking to herself, she been confused and not obeying commands. No fevers overnight. He has not been agitated, the patient herself does not voice any complaints. Hospitalist Physical - Physical exam Narrative exam: General: Patient appears well in no distress HEENT: MMM, EOMI cardiac: S1-S2 heard lungs: clear to auscultation, abdomen: soft, nontender, nondistended bowel sounds positive extremities: no edema clubbing or cyanosis Skin: no rash or lesion Neuro: Right hemiparesis Psych: Confused, disoriented - Constitutional Vitals: Temp Pulse Resp BP Pulse Ox 97.4 F L 99 H 18 177/85 99 08/20/16 07:41 08/20/16 08:52 08/20/16 08:52 08/20/16 07:41 08/20/16 08:57 General appearance: Present: no acute distress, well-nourished Results - Labs CBC & Chem 7: 08/20/16 07:55 08/20/16 07:55 Labs: Laboratory Last Values WBC 28.6 K/mm3 (4.5-11.0) H 08/20/16 07:55 RBC 3.45 M/mm3 (3.65-5.03) L 08/20/16 07:55 Hgb 9.7 gm/dl (10.1-14.3) L 08/20/16 07:55 Hct 30.7 % (30.3-42.9) 08/20/16 07:55 MCV 89 fl (79-97) 08/20/16 07:55 MCH 28 pg (28-32) 08/20/16 07:55 MCHC 32 % (30-34) 08/20/16 07:55 RDW 18.7 % (13.2-15.2) H 08/20/16 07:55 Plt Count 348 K/mm3 (140-440) 08/20/16 07:55 Add Manual Diff Complete 08/20/16 07:55 Total Counted 200 08/20/16 07:55 Seg Neutrophils % Data Conversion Analyst 08/20/16 07:55 Seg Neuts % (Manual) 93.0 % (40.0-70.0) H 08/20/16 07:55 Band Neutrophils % 0.5 % 08/20/16 07:55 Lymphocytes % (Manual) 5.5 % (13.4-35.0) L 08/20/16 07:55 Reactive Lymphs % (Man) 0 % 08/20/16 07:55 Monocytes % (Manual) 1.0 % (0.0-7.3) 08/20/16 07:55 Eosinophils % (Manual) 0 % (0.0-4.3) 08/20/16 07:55 Basophils % (Manual) 0 % (0.0-1.8) 08/20/16 07:55 Metamyelocytes % 0 % 08/20/16 07:55 Myelocytes % 0 % 08/20/16 07:55 Promyelocytes % 0 % 08/20/16 07:55 Blast Cells % 0 % 08/20/16 07:55 Nucleated RBC % Not Reportable 08/20/16 07:55 Seg Neutrophils # Man 26.6 K/mm3 (1.8-7.7) H 08/20/16 07:55 Band Neutrophils # 0.1 K/mm3 08/20/16 07:55 Lymphocytes # (Manual) 1.6 K/mm3 (1.2-5.4) 08/20/16 07:55 Abs React Lymphs (Man) 0.0 K/mm3 08/20/16 07:55 Monocytes # (Manual) 0.3 K/mm3 (0.0-0.8) 08/20/16 07:55 Eosinophils # (Manual) 0.0 K/mm3 (0.0-0.4) 08/20/16 07:55 Basophils # (Manual) 0.0 K/mm3 (0.0-0.1) 08/20/16 07:55 Metamyelocytes # 0.0 K/mm3 08/20/16 07:55 Myelocytes # 0.0 K/mm3 08/20/16 07:55 Promyelocytes # 0.0 K/mm3 08/20/16 07:55 Blast Cells # 0.0 K/mm3 08/20/16 07:55 Pathologist Review 08/11/16 15:28 WBC Morphology Not Reportable 08/20/16 07:55 Hypersegmented Neuts Not Reportable 08/20/16 07:55 Hyposegmented Neuts Not Reportable 08/20/16 07:55 Hypogranular Neuts Not Reportable 08/20/16 07:55 Smudge Cells Not Reportable 08/20/16 07:55 Toxic Granulation Not Reportable 08/20/16 07:55 Toxic Vacuolation Not Reportable 08/20/16 07:55 Dohle Bodies Not Reportable 08/20/16 07:55 Pelger-Huet Anomaly Not Reportable 08/20/16 07:55 Quynh Rods Not Reportable 08/20/16 07:55 Platelet Estimate Appears normal 08/20/16 07:55 Clumped Platelets Not Reportable 08/20/16 07:55 Plt Clumps, EDTA Not Reportable 08/20/16 07:55 Large Platelets Not Reportable 08/20/16 07:55 Giant Platelets Not Reportable 08/20/16 07:55 Platelet Satelliting Not Reportable 08/20/16 07:55 Plt Morphology Comment Not Reportable 08/20/16 07:55 RBC Morphology Not Reportable 08/20/16 07:55 Dimorphic RBCs Not Reportable 08/20/16 07:55 Polychromasia Not Reportable 08/20/16 07:55 Hypochromasia Not Reportable 08/20/16 07:55 Poikilocytosis Not Reportable 08/20/16 07:55 Anisocytosis 1+ 08/20/16 07:55 Microcytosis Not Reportable 08/20/16 07:55 Macrocytosis Not Reportable 08/20/16 07:55 Spherocytes Not Reportable 08/20/16 07:55 Pappenheimer Bodies Not Reportable 08/20/16 07:55 Sickle Cells Not Reportable 08/20/16 07:55 Target Cells Not Reportable 08/20/16 07:55 Tear Drop Cells Not Reportable 08/20/16 07:55 Ovalocytes Not Reportable 08/20/16 07:55 Helmet Cells Not Reportable 08/20/16 07:55 [place]-T[place] Bodies Not Reportable 08/20/16 07:55 [place] Rings Not Reportable 08/20/16 07:55 David Cells Not Reportable 08/20/16 07:55 Bite Cells Not Reportable 08/20/16 07:55 Crenated Cell Not Reportable 08/20/16 07:55 Elliptocytes Not Reportable 08/20/16 07:55 Acanthocytes (Spur) Not Reportable 08/20/16 07:55 Rouleaux Not Reportable 08/20/16 07:55 Hemoglobin C Crystals Not Reportable 08/20/16 07:55 Schistocytes Not Reportable 08/20/16 07:55 Malaria parasites Not Reportable 08/20/16 07:55 Percent Retic 2.01 % (0.78-2.58) 08/12/16 12:16 Vinny Bodies Not Reportable 08/20/16 07:55 Hem Pathologist Commnt No 08/20/16 07:55 D-Dimer 5042.20 ng/mlDDU (0-234) H 08/12/16 16:18 POC ABG pH 7.444 (7.35-7.45) 08/12/16 15:23 POC ABG pCO2 29.4 (35-45) L 08/12/16 15:23 POC ABG pO2 51 (80-105) L 08/12/16 15:23 POC ABG HCO3 20.2 08/12/16 15:23 POC ABG Total CO2 21 08/12/16 15:23 POC ABG O2 Sat 88 08/12/16 15:23 POC ABG Base Excess -4 08/12/16 15:23 FiO2 2 % 08/12/16 15:23 Sodium 139 mmol/L (137-145) 08/20/16 07:55 Potassium 4.9 mmol/L (3.6-5.0) 08/20/16 07:55 Chloride 99.2 mmol/L (98-107) 08/20/16 07:55 Carbon Dioxide 15 mmol/L (22-30) L 08/20/16 07:55 Anion Gap 30 mmol/L 08/20/16 07:55 BUN 134 mg/dL (7-17) H 08/20/16 07:55 Creatinine 5.1 mg/dL (0.7-1.2) H 08/20/16 07:55 Estimated GFR 10 ml/min 08/20/16 07:55 BUN/Creatinine Ratio 26.27 % 08/20/16 07:55 Glucose 284 mg/dL (65-100) H 08/20/16 07:55 POC Glucose 286 (70-105) H 08/20/16 06:31 Lactic Acid 2.0 mmol/L (0.7-2.0) 08/12/16 05:30 Calcium 8.1 mg/dL (8.4-10.2) L 08/20/16 07:55 Magnesium 2.2 mg/dL (1.7-2.3) 08/11/16 15:28 Iron 62 ug/dL (37-170) 08/12/16 12:16 TIBC 101 mcg/dL (250-450) L 08/12/16 12:16 Ferritin 2000.0 ng/mL (13.0-400.0) H 08/12/16 12:16 Total Bilirubin 1.0 mg/dL (0.1-1.2) 08/11/16 15:28 AST 258 units/L (5-40) H 08/11/16 15:28 ALT 201 units/L (7-56) H 08/11/16 15:28 Alkaline Phosphatase 458 units/L (35-129) H 08/11/16 15:28 Ammonia 49.0 umol/L (25-60) 08/15/16 06:00 Lactate Dehydrogenase 276 units/L (91-180) H 08/12/16 12:16 C-Reactive Protein 37.70 mg/dL (0.00-1.30) H 08/11/16 15:28 Total Protein 7.1 g/dL (6.3-8.2) 08/11/16 15:28 Albumin 2.3 g/dL (3.9-5) L 08/11/16 15:28 Albumin/Globulin Ratio 0.5 % 08/11/16 15:28 Vitamin B12 1117 pg/mL (211-911) H 08/12/16 12:16 Folate 18.10 ng/mL (7.3-26.0) 08/12/16 12:16 TSH 1.360 mlU/mL (0.270-4.200) 08/11/16 15:28 Urine Color Hortencia (Yellow) 08/11/16 15:17 Urine Turbidity Turbid (Clear) 08/11/16 15:17 Urine pH 5.0 (5.0-7.0) 08/11/16 15:17 Ur Specific [place] 1.022 (1.003-1.030) 08/11/16 15:17 Urine Protein >500 mg/dL (Negative) 08/11/16 15:17 Urine Glucose (UA) Neg mg/dL (Negative) 08/11/16 15:17 Urine Ketones Tr mg/dL (Negative) 08/11/16 15:17 Urine Blood Sm (Negative) 08/11/16 15:17 Urine Nitrite Neg (Negative) 08/11/16 15:17 Ur Reducing Substances Not Reportable 08/11/16 15:17 Urine Bilirubin Neg (Negative) 08/11/16 15:17 Urine Ictotest Not Reportable 08/11/16 15:17 Urine Urobilinogen < 2.0 mg/dL (<2.0) 08/11/16 15:17 Ur Leukocyte Esterase Mod (Negative) 08/11/16 15:17 Urine WBC (Auto) > 182.0 /HPF (0.0-6.0) H 08/11/16 15:17 Urine RBC (Auto) 48.0 /HPF (0.0-6.0) 08/11/16 15:17 U Epithel Cells (Auto) 4.0 /HPF (0-13.0) 08/11/16 15:17 Urine Bacteria (Auto) 4+ /HPF (Negative) 08/11/16 15:17 Urine HCG, Qual Negative (Negative) 08/11/16 15:17 Random Vancomycin 13.7 ug/mL (0-40.0) 08/15/16 06:00 Salicylates < 0.3 mg/dL (2.8-20.0) L 08/11/16 15:28 Urine Opiates Screen Presumptive negative 08/11/16 15:17 Urine Methadone Screen Presumptive negative 08/11/16 15:17 Acetaminophen < 15.0 ug/mL (10.0-30.0) 08/11/16 15:28 Ur Barbiturates Screen Presumptive negative 08/11/16 15:17 Ur Phencyclidine Scrn Presumptive negative 08/11/16 15:17 Ur Amphetamines Screen Presumptive negative 08/11/16 15:17 U Benzodiazepines Scrn Presumptive negative 08/11/16 15:17 Urine Cocaine Screen Presumptive negative 08/11/16 15:17 U Marijuana (THC) Screen Presumptive negative 08/11/16 15:17 Drugs of Abuse Note Disclamer 08/11/16 15:17 Plasma/Serum Alcohol < 0.01 gm% (0-0.07) 08/11/16 15:28 Blood Type B POSITIVE 08/11/16 19:45 Antibody Screen Negative 08/11/16 19:45 Crossmatch See Detail 08/11/16 19:45
[2016-08-20] MEDS ORDERED: NACL 0.9% 1000 ML 100 ML IV PRN (12:22)
[2016-08-20] MEDS: MERREM 1,000 MG in NACL 0.9% 100 ML IV SCH (12:27)
[2016-08-20] MEDS ORDERED: HEPARIN/NS 5000 UNIT/500ML(CATH LAB) 500 ML IR ONE (14:20)
[2016-08-20] MEDS ORDERED: HEPARIN 10,000 UNITS/10 ML ONE (14:20)
[2016-08-20] MEDS ORDERED: VERSED ONE (14:20)
[2016-08-20] MEDS ORDERED: ANCEF/STERILE WATER 2 GM/20 ML 20 ML IV ONE (14:21)
[2016-08-20] MEDS ORDERED: NACL 0.9% 250ML 0 ML ONE (14:21)
[2016-08-20] MEDS ORDERED: SUBLIMAZE ONE (14:21)
[2016-08-20] MEDS ORDERED: XYLOCAINE 1%/ EPI 1:100,000 INFILTRATI ONE (14:21)
--- NOTE | 2016-08-20 14:47 | Operative Report ---
Operative Report Operative Report: Date of procedure: 08/20/2016 Pre-operative diagnosis: End-stage renal disease status post infected permacath with the removal Post-operative diagnosis: Same Procedure name(s): Right common femoral dialysis catheter placement. Surgeon: Yoel Campbell MD, RPVI Fireman: None Anesthesia: Local Findings Patent right common femoral vein. Catheter aspirated and flushed easily. EBL: 10 mL IV fluids: None Urine output: 0 Disposition: Patient was brought to the [facility]. Right groin was prepped and draped in usual sterile fashion. It was anesthetized with 1% lidocaine. Under ultrasound guidance the micropuncture needle was inserted into the right femoral vein. The micropuncture guidewire was advanced into the iliac vein out resistant under fluoroscopic guidance. A micropuncture introducer was placed into the right common femoral vein. The wire was exchanged to a J-tip wire. The tract was dilated with a dilator. The triple lumen none cuffed dialysis catheter was placed in over the wire under fluoroscopy. The wire was removed. The catheter was aspirated and flushed without problems. The catheter was anchored to the skin using 2-0 silk stitch. Dressings were applied. Each port was locked with appropriate dose of heparin. Patient tolerated procedure well.
--- NOTE | 2016-08-20 17:50 | Progress Note ---
Assessment and Plan Patient resting on room air.No acute respiratory distress. O2 satuaration 96% on room air.Patient afebrile. Blood pressure slightly high.Complaining pain. Giving dilaudid as ordered. - Patient Problems (1) Sepsis due to Klebsiella Current Visit: Yes Status: Acute Plan to address problem: Patient is on Linozelid, merepenum and Metranidazole. Antibiotics as per infectious disease specialists. (2) Septic shock Current Visit: Yes Status: Acute Plan to address problem: Improving. Patient is on norepinephrine. Continue present I/V Fluids NSS. Continue present antibiotics. Linozelid, merepenum and metranidazole. Continue Hydrocortizone. 08/19/16 Patient off the norepinephrine. (3) Clostridium difficile colitis Current Visit: Yes Status: Acute Plan to address problem: Patient is on Metranidazole. Management as per infectious diseases. (4) Altered mental status Current Visit: Yes Status: Acute Plan to address problem: Management as per primary care. (5) End stage renal disease Current Visit: Yes Status: Chronic Plan to address problem: Management as per nephrology. (6) Lactic acidosis Current Visit: Yes Status: Acute Plan to address problem: Bicarb is 16, patient compensated. Obtaining blood gases. (7) Seizure disorder Current Visit: Yes Status: Chronic Plan to address problem: Patient is on Keppra. Subjective Date of service: 08/20/16 Principal diagnosis: Polymicrobial bacteremia and sepsis; C. difficile infection Interval history: Patient resting on room air.No acute respiratory distress. O2 satuaration 96% on room air.Patient afebrile. Blood pressure slightly high.Complaining pain. Giving dilaudid as ordered. Objective Vital Signs - 12hr 08/20/16 08/20/16 08/20/16 06:15 07:41 08:00 Temperature 97.4 F L Pulse Rate Pulse Rate [ 85 Anterior Bilateral Throughout] Pulse Rate [ 77 From Monitor] Respiratory 22 22 Rate Respiratory 17 Rate [Anterior Bilateral Throughout] Blood Pressure 177/85 [Left Arm] O2 Sat by Pulse 100 Oximetry 08/20/16 08/20/16 08/20/16 08:52 08:57 10:00 Temperature Pulse Rate 98 H Pulse Rate [ 99 H Anterior Bilateral Throughout] Pulse Rate [ From Monitor] Respiratory Rate Respiratory 18 Rate [Anterior Bilateral Throughout] Blood Pressure [Left Arm] O2 Sat by Pulse 99 Oximetry 08/20/16 08/20/16 13:08 16:52 Temperature 96.5 F L 96.4 F L Pulse Rate Pulse Rate [ Anterior Bilateral Throughout] Pulse Rate [ 76 86 From Monitor] Respiratory 22 22 Rate Respiratory Rate [Anterior Bilateral Throughout] Blood Pressure 175/73 174/72 [Left Arm] O2 Sat by Pulse 96 96 Oximetry Constitutional: no acute distress, lethargic Eyes: non-icteric ENT: oropharynx moist Neck: supple Effort: normal Ascultation: Bilateral: diminished breath sounds Cardiovascular: regular rate and rhythm Gastrointestinal: normoactive bowel sounds Extremities: no cyanosis, no edema Neurologic: pupils equal and round, unable to assess Psychiatric: depressed, other CBC and BMP: 08/20/16 07:55 08/20/16 07:55 ABG, PT/INR, D-dimer: ABG POC ABG pH 7.444 (7.35-7.45) 08/12/16 15:23 POC ABG pCO2 29.4 (35-45) L 08/12/16 15:23 POC ABG pO2 51 (80-105) L 08/12/16 15:23 POC ABG HCO3 20.2 08/12/16 15:23 POC ABG Total CO2 21 08/12/16 15:23 POC ABG O2 Sat 88 08/12/16 15:23 PT/INR, D-dimer D-Dimer 5042.20 ng/mlDDU (0-234) H 08/12/16 16:18 Abnormal lab findings: Abnormal Labs 08/11/16 08/11/16 08/12/16 19:45 23:01 02:35 WBC RBC Hgb Hct RDW Seg Neuts % (Manual) Lymphocytes % (Manual) Monocytes % (Manual) Seg Neutrophils # Man Monocytes # (Manual) Eosinophils # (Manual) D-Dimer POC ABG pCO2 POC ABG pO2 Sodium Potassium Chloride Carbon Dioxide BUN Creatinine Glucose POC Glucose 307 H Lactic Acid 3.5 H* Calcium TIBC Ferritin Lactate Dehydrogenase Vitamin B12 Crossmatch See Detail 08/12/16 08/12/16 08/12/16 05:30 05:30 11:09 WBC 38.6 H RBC 3.14 L Hgb 8.7 L Hct 28.1 L D RDW 18.3 H Seg Neuts % (Manual) Lymphocytes % (Manual) 9.0 L Monocytes % (Manual) 8.0 H Seg Neutrophils # Man 16.6 H Monocytes # (Manual) 3.1 H Eosinophils # (Manual) 1.2 H D-Dimer POC ABG pCO2 POC ABG pO2 Sodium 133 L Potassium 3.0 L Chloride 92.4 L Carbon Dioxide 21 L BUN 44 H Creatinine 2.3 H Glucose 270 H POC Glucose 247 H Lactic Acid Calcium 8.2 L TIBC Ferritin Lactate Dehydrogenase Vitamin B12 Crossmatch 08/12/16 08/12/16 08/12/16 12:16 12:16 12:16 WBC RBC Hgb Hct RDW Seg Neuts % (Manual) Lymphocytes % (Manual) Monocytes % (Manual) Seg Neutrophils # Man Monocytes # (Manual) Eosinophils # (Manual) D-Dimer POC ABG pCO2 POC ABG pO2 Sodium Potassium Chloride Carbon Dioxide BUN Creatinine Glucose POC Glucose Lactic Acid Calcium TIBC Ferritin 2000.0 H Lactate Dehydrogenase 276 H Vitamin B12 1117 H Crossmatch 08/12/16 08/12/16 08/12/16 12:16 15:23 16:18 WBC RBC Hgb Hct RDW Seg Neuts % (Manual) Lymphocytes % (Manual) Monocytes % (Manual) Seg Neutrophils # Man Monocytes # (Manual) Eosinophils # (Manual) D-Dimer 5042.20 H POC ABG pCO2 29.4 L POC ABG pO2 51 L Sodium Potassium Chloride Carbon Dioxide BUN Creatinine Glucose POC Glucose Lactic Acid Calcium TIBC 101 L Ferritin Lactate Dehydrogenase Vitamin B12 Crossmatch 08/12/16 08/12/16 08/13/16 17:45 23:36 06:58 WBC RBC Hgb Hct RDW Seg Neuts % (Manual) Lymphocytes % (Manual) Monocytes % (Manual) Seg Neutrophils # Man Monocytes # (Manual) Eosinophils # (Manual) D-Dimer POC ABG pCO2 POC ABG pO2 Sodium Potassium Chloride Carbon Dioxide BUN Creatinine Glucose POC Glucose 196 H 170 H 199 H Lactic Acid Calcium TIBC Ferritin Lactate Dehydrogenase Vitamin B12 Crossmatch 08/13/16 08/13/16 08/13/16 11:25 16:29 21:10 WBC RBC Hgb Hct RDW Seg Neuts % (Manual) Lymphocytes % (Manual) Monocytes % (Manual) Seg Neutrophils # Man Monocytes # (Manual) Eosinophils # (Manual) D-Dimer POC ABG pCO2 POC ABG pO2 Sodium Potassium Chloride Carbon Dioxide BUN Creatinine Glucose POC Glucose 267 H 277 H 203 H Lactic Acid Calcium TIBC Ferritin Lactate Dehydrogenase Vitamin B12 Crossmatch 08/13/16 08/13/16 08/14/16 Unknown Unknown 07:42 WBC 30.0 H RBC 2.75 L Hgb 7.8 L Hct 24.0 L RDW 18.4 H Seg Neuts % (Manual) 75.0 H Lymphocytes % (Manual) 7.0 L Monocytes % (Manual) Seg Neutrophils # Man 22.5 H Monocytes # (Manual) Eosinophils # (Manual) D-Dimer POC ABG pCO2 POC ABG pO2 Sodium 133 L Potassium 3.4 L Chloride 95.2 L Carbon Dioxide 18 L BUN 58 H Creatinine 2.9 H Glucose 201 H POC Glucose 306 H Lactic Acid Calcium 8.2 L TIBC Ferritin Lactate Dehydrogenase Vitamin B12 Crossmatch 08/14/16 08/14/16 08/14/16 08:26 08:26 11:19 WBC 28.9 H RBC 2.92 L Hgb 8.2 L Hct 25.9 L RDW 18.8 H Seg Neuts % (Manual) 85.5 H Lymphocytes % (Manual) 4.5 L Monocytes % (Manual) Seg Neutrophils # Man 24.7 H Monocytes # (Manual) 0.9 H Eosinophils # (Manual) D-Dimer POC ABG pCO2 POC ABG pO2 Sodium Potassium Chloride Carbon Dioxide 15 L BUN 77 H Creatinine 3.5 H Glucose 289 H POC Glucose 274 H Lactic Acid Calcium 8.3 L TIBC Ferritin Lactate Dehydrogenase Vitamin B12 Crossmatch 08/14/16 08/14/16 08/15/16 15:56 21:12 06:00 WBC 30.1 H RBC 2.67 L Hgb 7.8 L Hct 23.4 L RDW 18.4 H Seg Neuts % (Manual) 86.0 H Lymphocytes % (Manual) 4.0 L Monocytes % (Manual) Seg Neutrophils # Man 25.9 H Monocytes # (Manual) 1.8 H Eosinophils # (Manual) D-Dimer POC ABG pCO2 POC ABG pO2 Sodium Potassium Chloride Carbon Dioxide BUN Creatinine Glucose POC Glucose 284 H 357 H Lactic Acid Calcium TIBC Ferritin Lactate Dehydrogenase Vitamin B12 Crossmatch 08/15/16 08/15/16 08/15/16 06:00 11:17 16:43 WBC RBC Hgb Hct RDW Seg Neuts % (Manual) Lymphocytes % (Manual) Monocytes % (Manual) Seg Neutrophils # Man Monocytes # (Manual) Eosinophils # (Manual) D-Dimer POC ABG pCO2 POC ABG pO2 Sodium Potassium 3.5 L Chloride 96.6 L Carbon Dioxide 21 L BUN 51 H Creatinine 2.6 H Glucose 214 H POC Glucose 280 H 257 H Lactic Acid Calcium 8.3 L TIBC Ferritin Lactate Dehydrogenase Vitamin B12 Crossmatch 08/15/16 08/16/16 08/16/16 23:40 05:25 07:20 WBC RBC Hgb Hct RDW Seg Neuts % (Manual) Lymphocytes % (Manual) Monocytes % (Manual) Seg Neutrophils # Man Monocytes # (Manual) Eosinophils # (Manual) D-Dimer POC ABG pCO2 POC ABG pO2 Sodium Potassium Chloride Carbon Dioxide BUN Creatinine Glucose POC Glucose 179 H 140 H 147 H Lactic Acid Calcium TIBC Ferritin Lactate Dehydrogenase Vitamin B12 Crossmatch 08/16/16 08/16/16 08/16/16 09:20 09:20 11:28 WBC 35.1 H RBC 2.78 L Hgb 7.9 L Hct 24.7 L RDW 18.5 H Seg Neuts % (Manual) Lymphocytes % (Manual) Monocytes % (Manual) Seg Neutrophils # Man Monocytes # (Manual) Eosinophils # (Manual) D-Dimer POC ABG pCO2 POC ABG pO2 Sodium 136 L Potassium 3.5 L Chloride Carbon Dioxide 17 L BUN 62 H Creatinine 3.3 H Glucose 128 H POC Glucose 150 H Lactic Acid Calcium 7.7 L TIBC Ferritin Lactate Dehydrogenase Vitamin B12 Crossmatch 08/16/16 08/16/16 08/17/16 15:39 23:45 05:03 WBC RBC Hgb Hct RDW Seg Neuts % (Manual) Lymphocytes % (Manual) Monocytes % (Manual) Seg Neutrophils # Man Monocytes # (Manual) Eosinophils # (Manual) D-Dimer POC ABG pCO2 POC ABG pO2 Sodium Potassium Chloride Carbon Dioxide BUN Creatinine Glucose POC Glucose 106 H 156 H 287 H Lactic Acid Calcium TIBC Ferritin Lactate Dehydrogenase Vitamin B12 Crossmatch 08/17/16 08/17/16 08/17/16 08:40 08:40 12:11 WBC 37.0 H RBC 2.91 L Hgb 8.3 L Hct 25.8 L RDW 18.5 H Seg Neuts % (Manual) Lymphocytes % (Manual) Monocytes % (Manual) Seg Neutrophils # Man Monocytes # (Manual) Eosinophils # (Manual) D-Dimer POC ABG pCO2 POC ABG pO2 Sodium 136 L Potassium Chloride 96.0 L Carbon Dioxide 16 L BUN 78 H Creatinine 4.0 H Glucose 330 H POC Glucose 345 H Lactic Acid Calcium 8.3 L TIBC Ferritin Lactate Dehydrogenase Vitamin B12 Crossmatch 08/17/16 08/17/16 08/17/16 15:34 17:40 20:07 WBC RBC Hgb Hct RDW Seg Neuts % (Manual) Lymphocytes % (Manual) Monocytes % (Manual) Seg Neutrophils # Man Monocytes # (Manual) Eosinophils # (Manual) D-Dimer POC ABG pCO2 POC ABG pO2 Sodium Potassium Chloride Carbon Dioxide BUN Creatinine Glucose POC Glucose < 40 L 403 H 439 H Lactic Acid Calcium TIBC Ferritin Lactate Dehydrogenase Vitamin B12 Crossmatch 08/18/16 08/18/16 08/18/16 00:16 05:03 12:34 WBC RBC Hgb Hct RDW Seg Neuts % (Manual) Lymphocytes % (Manual) Monocytes % (Manual) Seg Neutrophils # Man Monocytes # (Manual) Eosinophils # (Manual) D-Dimer POC ABG pCO2 POC ABG pO2 Sodium Potassium Chloride Carbon Dioxide BUN Creatinine Glucose POC Glucose 457 H 388 H 313 H Lactic Acid Calcium TIBC Ferritin Lactate Dehydrogenase Vitamin B12 Crossmatch 08/18/16 08/18/16 08/19/16 13:16 17:50 02:14 WBC RBC Hgb Hct RDW Seg Neuts % (Manual) Lymphocytes % (Manual) Monocytes % (Manual) Seg Neutrophils # Man Monocytes # (Manual) Eosinophils # (Manual) D-Dimer POC ABG pCO2 POC ABG pO2 Sodium Potassium Chloride Carbon Dioxide 15 L BUN 100 H Creatinine 4.5 H Glucose 286 H POC Glucose 195 H 118 H Lactic Acid Calcium 8.3 L TIBC Ferritin Lactate Dehydrogenase Vitamin B12 Crossmatch 08/19/16 08/19/16 08/19/16 12:23 12:23 17:35 WBC 30.9 H RBC 3.45 L Hgb 9.7 L Hct RDW 18.6 H Seg Neuts % (Manual) 89.5 H Lymphocytes % (Manual) 6.0 L Monocytes % (Manual) Seg Neutrophils # Man 27.7 H Monocytes # (Manual) Eosinophils # (Manual) D-Dimer POC ABG pCO2 POC ABG pO2 Sodium Potassium Chloride Carbon Dioxide 16 L BUN 116 H Creatinine 5.0 H Glucose 102 H POC Glucose 181 H Lactic Acid Calcium TIBC Ferritin Lactate Dehydrogenase Vitamin B12 Crossmatch 08/19/16 08/20/16 08/20/16 23:56 06:03 06:31 WBC RBC Hgb Hct RDW Seg Neuts % (Manual) Lymphocytes % (Manual) Monocytes % (Manual) Seg Neutrophils # Man Monocytes # (Manual) Eosinophils # (Manual) D-Dimer POC ABG pCO2 POC ABG pO2 Sodium Potassium Chloride Carbon Dioxide BUN Creatinine Glucose POC Glucose 239 H 278 H 286 H Lactic Acid Calcium TIBC Ferritin Lactate Dehydrogenase Vitamin B12 Crossmatch 08/20/16 08/20/16 07:55 07:55 WBC 28.6 H RBC 3.45 L Hgb 9.7 L Hct RDW 18.7 H Seg Neuts % (Manual) 93.0 H Lymphocytes % (Manual) 5.5 L Monocytes % (Manual) Seg Neutrophils # Man 26.6 H Monocytes # (Manual) Eosinophils # (Manual) D-Dimer POC ABG pCO2 POC ABG pO2 Sodium Potassium Chloride Carbon Dioxide 15 L BUN 134 H Creatinine 5.1 H Glucose 284 H POC Glucose Lactic Acid Calcium 8.1 L TIBC Ferritin Lactate Dehydrogenase Vitamin B12 Crossmatch Allied health notes reviewed: nursing
[2016-08-20] MEDS: PEPCID PO SCH (18:07)
[2016-08-20] MEDS: LEVEMIR SUB-Q SCH (18:07)
[2016-08-20] MEDS: PROCRIT IV PRN ×2 (20:56→21:18)
[2016-08-20] MEDS: HEPARIN IV PRN (21:17)
[2016-08-20] MEDS ORDERED: NACL 0.9 (PRIMING MACHINE ONLY DIALYSIS) MC ONE (23:02)
[2016-08-21] MEDS: ZYVOX PO SCH (01:09)
[2016-08-21] MEDS: KEPPRA PO SCH ×3 (01:10→22:22)
[2016-08-21] MEDS: VANCOMYCIN PO SCH ×3 (01:11→14:46)
[2016-08-21] MEDS: SODIUM BICARBONATE PO SCH ×3 (01:11→22:22)
[2016-08-21] MEDS: HEPARIN SUB-Q SCH ×4 (01:11→22:22)
[2016-08-21] MEDS: DILAUDID IV PRN (01:14)
[2016-08-21] MEDS: NOVOLOG SUB-Q SCH ×3 (01:55→14:47)
--- NOTE | 2016-08-21 02:56 | Progress Note ---
Assessment and Plan Impression: * ESRD * Catheter related bacteremia, Enterococcus faecium, Klebsiella pneumoniae --Surveillence cx (08/16) - Enterococcus * C diff colitis * Sacral decubitus ulcer * Type II DM * Hypertension * Anemia in ESRD * Metabolic acidosis secondary to uremia Plan: * Hemodialysis today; may need an additional treatment tomorrow * Persistent bacteremia. TTE ordered, pending; may need NILSON * Abx per ID - Meropenem/Zyvox/Flagyl * Strict I/O * Dose medications for renal function Subjective Date of service: 08/20/16 Principal diagnosis: Polymicrobial bacteremia and sepsis; C. difficile infection Interval history: Patient transferred to floor. No acute events overnight. Objective - Vital Signs Vital signs: Vital Signs - 12hr 08/20/16 08/20/16 08/20/16 16:52 20:00 20:15 Temperature 96.4 F L Pulse Rate 94 H 104 H Pulse Rate [ 86 From Monitor] Respiratory 22 Rate Blood Pressure 172/86 142/68 Blood Pressure 174/72 [Left Arm] O2 Sat by Pulse 96 Oximetry 08/20/16 08/20/16 08/20/16 20:25 20:30 20:45 Temperature 98 F Pulse Rate 88 114 H 116 H Pulse Rate [ From Monitor] Respiratory 22 Rate Blood Pressure 164/82 136/66 174/90 Blood Pressure [Left Arm] O2 Sat by Pulse Oximetry 08/20/16 08/20/16 08/20/16 21:00 21:15 21:39 Temperature Pulse Rate 120 H 110 H 120 H Pulse Rate [ From Monitor] Respiratory Rate Blood Pressure 174/92 174/72 158/88 Blood Pressure [Left Arm] O2 Sat by Pulse Oximetry 08/20/16 08/20/16 08/20/16 21:45 22:00 22:15 Temperature Pulse Rate 120 H 120 H 114 H Pulse Rate [ From Monitor] Respiratory Rate Blood Pressure 138/80 170/84 158/84 Blood Pressure [Left Arm] O2 Sat by Pulse Oximetry 08/20/16 08/20/16 22:30 22:52 Temperature 97.9 F Pulse Rate 114 H 108 H Pulse Rate [ From Monitor] Respiratory 24 Rate Blood Pressure 156/80 162/82 Blood Pressure [Left Arm] O2 Sat by Pulse Oximetry - General Appearance General appearance: well-developed, well-nourished EENT: ATNC Neck: no JVD Respiratory: Present: Clear to Ascultation Gastrointestinal: normal, no tenderness, no distended Integumentary: no rash Psychiatric: cooperative - Lab 08/20/16 07:55 08/20/16 07:55 Most recent lab results Calcium 8.1 mg/dL (8.4-10.2) L 08/20/16 07:55 Magnesium 2.2 mg/dL (1.7-2.3) 08/11/16 15:28
[2016-08-21] MEDS: MORPHINE IV PRN ×2 (05:14→22:17)
[2016-08-21 05:25] LABS: Hematocrit 31.1 % (30.3-42.9); Mean Corpuscular HGB Conc 32 % (30-34); Mean Corpuscular Hemoglobin 28 pg (28-32); Mean Corpuscular Volume 87 fl (79-97); Platelet Count 321 K/mm3 (140-440); Red Blood Count 3.56 M/mm3 (3.65-5.03); Red Cell Distribution Width 18.2 % (13.2-15.2)
--- NOTE | 2016-08-21 05:27 | Vascular Lab Report ---
MISCELLANEOUS VESSEL IDENTIFICATION: COMMENTS ON THE SCAN: The right common femoral vein was identified and under real-time ultrasound guidance was cannulated. IMPRESSION: Successful ultrasound guided vein cannulation.
[2016-08-21 05:28] LABS: White Blood Count 34.9 K/mm3 (4.5-11.0)
[2016-08-21 05:47] LABS: BUN/Creatinine Ratio 26.38
[2016-08-21 06:23] LABS: Basophils % (Manual) 0 % (0.0-1.8); Blastocytes % (Manual) 0 %; Eosinophils % (Manual) 0 % (0.0-4.3)
[2016-08-21 06:24] LABS: Anisocytosis 1+; Diff Status Complete; Hypochromasia 1+; Target Cells Few
[2016-08-21 07:17] LABS: Chloride 96.2 mmol/L (98-107); Potassium 4.4 mmol/L (3.6-5.0)
[2016-08-21] MEDS: DUONEB 0.5 MG-3 MG/3 ML SOLN IH SCH ×3 (07:44→21:09)
--- NOTE | 2016-08-21 09:07 | Progress Note ---
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 Patient is currently on blood pressure support. Admitting blood cultures are growing blood cultures Gram positive cocci in pairs and Gram negative rods. Problem list: 1. Polymicrobial bacteremia and sepsis, central venous catheter associated, permacath removed on 08/15/16. Enterococcus faecium and ESBL Klebsiella pneumoniae grew in blood culture. Patient had persistent bacteremia from 08/11- 08/16. The Enterococcus faecium grew in blood cultures on 08/16/16. Persistence of bacteremia could also be related to the permacath being removed on 08/15 -I would like to obtain an echocardiogram to rule out endovascular infection. -I would rather use daptomycin over linezolid for the Enterococcus faecium, daptomycin is bacteriacidal vs linezolid is bacteriastatic -E.faecium sensitive to daptomycin 2. Left chest wall permacath infection -Status post removal 08/15 -Tip culture grew Proteus mirabilis and VRE faecium 3. C. diff. infection -Toxin assay positive 08/13 -Diarrhea persist with elevated wbc -Po vancomycin started on 08/21/16 4. Leukocytosis -Marked elevation to 51,000 -Multifactorial with bacteremia & C diff infection 5. Presacral pressure sore -no sign of active infection -continue aggressive wound care 6. End-stage renal failure -Left chest PermCath - removal 08/15 7. Status post right hemispheral stroke -Left hemiplegia 8. Lactic acidosis -Secondary to #1 -Resolved PLAN: 1. discontinue linezolid, start daptomycin to be dosed for renal failure. Duration to be based on echocardiogram findings 2. continue Meropenem for the ESBL Klebsiella 3. continue vancomycin 250mg po Q6H per PEG 4. follow up echocardiogram 5. follow up repeat blood culture done on 08/19/16 Subjective Date of service: 08/21/16 Principal diagnosis: Polymicrobial bacteremia and sepsis; C. difficile infection Interval history: Patient seen in bed comfortable, she remains confused. Objective - Constitutional Vitals: Selected Entries 08/21/16 08:28 Temperature 98.4 F Pulse Rate [ 107 H Left Radial] Respiratory 20 Rate O2 Sat by Pulse 100 Oximetry Blood Pressure 131/72 [Left Arm] Blood Pressure 91 Mean [Left Arm] General appearance: Present: no acute distress, well-nourished - EENT Eyes: EOM intact, no scleral icterus, no conjunctival injection ENT: hearing intact, edentulous, no oropharyngeal erythema Ears: bilateral: normal - Neck Neck: supple, normal ROM, no enlarged thyroid, no masses or JVD - Respiratory Respiratory: bilateral: CTA - Breasts Breasts: deferred - Cardiovascular Rhythm: regular Heart Sounds: Present: S1 & S2 Extremities: abnormal Extremity abnormal: edema, other (right groin HD catheter, right line picc line) - Gastrointestinal General gastrointestinal: Present: soft, non-tender, normal bowel sounds Rectal Exam: deferred - Genitourinary Female genitourinary: deferred - Integumentary Integumentary: clear, warm, dry - Labs CBC & Chem 7: 08/21/16 Unknown 08/21/16 04:00 Labs: Microbiology 08/16/16 10:42 Peripheral/Venous Blood Culture - Final Enterococcus Faecium 08/16/16 10:28 Peripheral/Venous Blood Culture - Final Enterococcus Faecium 08/19/16 16:48 Peripheral/Venous Blood Culture - Preliminary NO GROWTH AFTER 24 HOURS 08/19/16 16:48 Peripheral/Venous Blood Culture - Preliminary NO GROWTH AFTER 24 HOURS Laboratory Tests 08/21/16 08/21/16 04:00 Unknown WBC 34.9 H Plt Count 321 Creatinine 3.6 H
--- NOTE | 2016-08-21 09:43 | Progress Note ---
Assessment and Plan Impression: * ESRD * Sepsis * Gram neg Bacteremia * Sacral decubiti * DM type 2 * HTN * Anemia in ESRD Plan: * abx per ID * 08/19 cultures no growth * follow up echo * renal diet * strict i/os * avoid nephrotoxins * daily lytes * dailysis tthsaat Subjective Date of service: 08/21/16 Principal diagnosis: Polymicrobial bacteremia and sepsis; C. difficile infection Interval history: resting well in bed today Objective - Exam Narrative Exam: General appearance: Present: no acute distress - EENT Eyes: Present: PERRL, EOM intact ENT: hearing intact, clear oral mucosa, dentition normal - Neck Neck: Present: supple, normal ROM - Respiratory Respiratory effort: normal Respiratory: bilateral: CTA - Cardiovascular Rhythm: regular Heart Sounds: Present: S1 & S2. Absent: gallop, rub - Extremities Extremities: no ischemia, No edema, Full ROM - Abdominal General gastrointestinal: soft, non-tender, non-distended, normal bowel sounds - Integumentary Integumentary: Present: clear, warm, dry - Neurologic Neurologic: CNII-XII intact, moves all extremities, other (confused) - Vital Signs Vital signs: Vital Signs - 12hr 08/20/16 08/20/16 08/20/16 21:45 22:00 22:15 Temperature Pulse Rate 120 H 97 H 114 H Pulse Rate [ From Monitor] Pulse Rate [ Left Radial] Respiratory Rate Blood Pressure 138/80 170/84 158/84 Blood Pressure [Left Arm] O2 Sat by Pulse Oximetry 08/20/16 08/20/16 08/21/16 22:30 22:52 05:55 Temperature 97.9 F 97.6 F Pulse Rate 114 H 108 H Pulse Rate [ 113 H From Monitor] Pulse Rate [ Left Radial] Respiratory 24 20 Rate Blood Pressure 156/80 162/82 Blood Pressure 159/82 [Left Arm] O2 Sat by Pulse 96 Oximetry 08/21/16 08/21/16 07:42 08:28 Temperature 98.4 F Pulse Rate Pulse Rate [ From Monitor] Pulse Rate [ 107 H Left Radial] Respiratory 20 Rate Blood Pressure Blood Pressure 131/72 [Left Arm] O2 Sat by Pulse 96 100 Oximetry - Lab 08/21/16 Unknown 08/21/16 04:00 Most recent lab results Calcium 8.0 mg/dL (8.4-10.2) L 08/21/16 04:00 Magnesium 2.2 mg/dL (1.7-2.3) 08/11/16 15:28
[2016-08-21] MEDS: PEPCID PO SCH (10:08)
--- NOTE | 2016-08-21 10:17 | Progress Note ---
Assessment and Plan Assessment and Plan 1. Septic shock. - resolved - prn lactate levels. - s/p vascath replacement - wound care per WCT - de-escalate AB's per ID recs 2. Toxic metabolic encephalopathy. - Continue treating underlying causes. 3. UTI. - Follow-up urine culture and continue antibiotics. 4. Diabetes mellitus, type II. - Continue Accu-Cheks and sliding scale regular insulin. 5. ESRD. Nephrology consultation pending. - Continue hemodialysis per nephrology. 6. Seizure disorder. - Continue Keppra IV. No new activity. - Seizure precautions. 9. Oropharyngeal dysphagia - s/p PEG- Enteric feeding, glycemic control. Aspiration precautions. Subjective Date of service: 08/21/16 Principal diagnosis: Polymicrobial bacteremia and sepsis; C. difficile infection Interval history: Seen and examined at bedside; 24 hour events reviewed; nursing and respiratory care staff consulted; no adverse overnight events reported to me; resting in bed ; lethargic; no emesis or overt aspiration Objective Vital Signs - 12hr 08/20/16 08/20/16 08/21/16 22:30 22:52 05:55 Temperature 97.9 F 97.6 F Pulse Rate 114 H 108 H Pulse Rate [ 113 H From Monitor] Pulse Rate [ Left Radial] Respiratory 24 20 Rate Blood Pressure 156/80 162/82 Blood Pressure 159/82 [Left Arm] O2 Sat by Pulse 96 Oximetry 08/21/16 08/21/16 07:42 08:28 Temperature 98.4 F Pulse Rate Pulse Rate [ From Monitor] Pulse Rate [ 107 H Left Radial] Respiratory 20 Rate Blood Pressure Blood Pressure 131/72 [Left Arm] O2 Sat by Pulse 96 100 Oximetry Constitutional: no acute distress, lethargic Eyes: non-icteric ENT: oropharynx moist Neck: supple Effort: normal Ascultation: Bilateral: diminished breath sounds Cardiovascular: regular rate and rhythm Gastrointestinal: normoactive bowel sounds Extremities: no cyanosis, no edema Neurologic: pupils equal and round, unable to assess Psychiatric: other (lethargic) CBC and BMP: 08/23/16 05:42 08/23/16 05:42 ABG, PT/INR, D-dimer: ABG POC ABG pH 7.444 (7.35-7.45) 08/12/16 15:23 POC ABG pCO2 29.4 (35-45) L 08/12/16 15:23 POC ABG pO2 51 (80-105) L 08/12/16 15:23 POC ABG HCO3 20.2 08/12/16 15:23 POC ABG Total CO2 21 08/12/16 15:23 POC ABG O2 Sat 88 08/12/16 15:23 PT/INR, D-dimer D-Dimer 5042.20 ng/mlDDU (0-234) H 08/12/16 16:18 Abnormal lab findings: Abnormal Labs 08/11/16 08/11/16 08/12/16 19:45 23:01 02:35 WBC RBC Hgb Hct RDW Seg Neuts % (Manual) Lymphocytes % (Manual) Monocytes % (Manual) Seg Neutrophils # Man Monocytes # (Manual) Eosinophils # (Manual) D-Dimer POC ABG pCO2 POC ABG pO2 Sodium Potassium Chloride Carbon Dioxide BUN Creatinine Glucose POC Glucose 307 H Lactic Acid 3.5 H* Calcium TIBC Ferritin Lactate Dehydrogenase Vitamin B12 Crossmatch See Detail 08/12/16 08/12/16 08/12/16 05:30 05:30 11:09 WBC 38.6 H RBC 3.14 L Hgb 8.7 L Hct 28.1 L D RDW 18.3 H Seg Neuts % (Manual) Lymphocytes % (Manual) 9.0 L Monocytes % (Manual) 8.0 H Seg Neutrophils # Man 16.6 H Monocytes # (Manual) 3.1 H Eosinophils # (Manual) 1.2 H D-Dimer POC ABG pCO2 POC ABG pO2 Sodium 133 L Potassium 3.0 L Chloride 92.4 L Carbon Dioxide 21 L BUN 44 H Creatinine 2.3 H Glucose 270 H POC Glucose 247 H Lactic Acid Calcium 8.2 L TIBC Ferritin Lactate Dehydrogenase Vitamin B12 Crossmatch 08/12/16 08/12/16 08/12/16 12:16 12:16 12:16 WBC RBC Hgb Hct RDW Seg Neuts % (Manual) Lymphocytes % (Manual) Monocytes % (Manual) Seg Neutrophils # Man Monocytes # (Manual) Eosinophils # (Manual) D-Dimer POC ABG pCO2 POC ABG pO2 Sodium Potassium Chloride Carbon Dioxide BUN Creatinine Glucose POC Glucose Lactic Acid Calcium TIBC Ferritin 2000.0 H Lactate Dehydrogenase 276 H Vitamin B12 1117 H Crossmatch 08/12/16 08/12/16 08/12/16 12:16 15:23 16:18 WBC RBC Hgb Hct RDW Seg Neuts % (Manual) Lymphocytes % (Manual) Monocytes % (Manual) Seg Neutrophils # Man Monocytes # (Manual) Eosinophils # (Manual) D-Dimer 5042.20 H POC ABG pCO2 29.4 L POC ABG pO2 51 L Sodium Potassium Chloride Carbon Dioxide BUN Creatinine Glucose POC Glucose Lactic Acid Calcium TIBC 101 L Ferritin Lactate Dehydrogenase Vitamin B12 Crossmatch 08/12/16 08/12/16 08/13/16 17:45 23:36 06:58 WBC RBC Hgb Hct RDW Seg Neuts % (Manual) Lymphocytes % (Manual) Monocytes % (Manual) Seg Neutrophils # Man Monocytes # (Manual) Eosinophils # (Manual) D-Dimer POC ABG pCO2 POC ABG pO2 Sodium Potassium Chloride Carbon Dioxide BUN Creatinine Glucose POC Glucose 196 H 170 H 199 H Lactic Acid Calcium TIBC Ferritin Lactate Dehydrogenase Vitamin B12 Crossmatch 08/13/16 08/13/16 08/13/16 11:25 16:29 21:10 WBC RBC Hgb Hct RDW Seg Neuts % (Manual) Lymphocytes % (Manual) Monocytes % (Manual) Seg Neutrophils # Man Monocytes # (Manual) Eosinophils # (Manual) D-Dimer POC ABG pCO2 POC ABG pO2 Sodium Potassium Chloride Carbon Dioxide BUN Creatinine Glucose POC Glucose 267 H 277 H 203 H Lactic Acid Calcium TIBC Ferritin Lactate Dehydrogenase Vitamin B12 Crossmatch 08/13/16 08/13/16 08/14/16 Unknown Unknown 07:42 WBC 30.0 H RBC 2.75 L Hgb 7.8 L Hct 24.0 L RDW 18.4 H Seg Neuts % (Manual) 75.0 H Lymphocytes % (Manual) 7.0 L Monocytes % (Manual) Seg Neutrophils # Man 22.5 H Monocytes # (Manual) Eosinophils # (Manual) D-Dimer POC ABG pCO2 POC ABG pO2 Sodium 133 L Potassium 3.4 L Chloride 95.2 L Carbon Dioxide 18 L BUN 58 H Creatinine 2.9 H Glucose 201 H POC Glucose 306 H Lactic Acid Calcium 8.2 L TIBC Ferritin Lactate Dehydrogenase Vitamin B12 Crossmatch 08/14/16 08/14/16 08/14/16 08:26 08:26 11:19 WBC 28.9 H RBC 2.92 L Hgb 8.2 L Hct 25.9 L RDW 18.8 H Seg Neuts % (Manual) 85.5 H Lymphocytes % (Manual) 4.5 L Monocytes % (Manual) Seg Neutrophils # Man 24.7 H Monocytes # (Manual) 0.9 H Eosinophils # (Manual) D-Dimer POC ABG pCO2 POC ABG pO2 Sodium Potassium Chloride Carbon Dioxide 15 L BUN 77 H Creatinine 3.5 H Glucose 289 H POC Glucose 274 H Lactic Acid Calcium 8.3 L TIBC Ferritin Lactate Dehydrogenase Vitamin B12 Crossmatch 08/14/16 08/14/16 08/15/16 15:56 21:12 06:00 WBC 30.1 H RBC 2.67 L Hgb 7.8 L Hct 23.4 L RDW 18.4 H Seg Neuts % (Manual) 86.0 H Lymphocytes % (Manual) 4.0 L Monocytes % (Manual) Seg Neutrophils # Man 25.9 H Monocytes # (Manual) 1.8 H Eosinophils # (Manual) D-Dimer POC ABG pCO2 POC ABG pO2 Sodium Potassium Chloride Carbon Dioxide BUN Creatinine Glucose POC Glucose 284 H 357 H Lactic Acid Calcium TIBC Ferritin Lactate Dehydrogenase Vitamin B12 Crossmatch 08/15/16 08/15/16 08/15/16 06:00 11:17 16:43 WBC RBC Hgb Hct RDW Seg Neuts % (Manual) Lymphocytes % (Manual) Monocytes % (Manual) Seg Neutrophils # Man Monocytes # (Manual) Eosinophils # (Manual) D-Dimer POC ABG pCO2 POC ABG pO2 Sodium Potassium 3.5 L Chloride 96.6 L Carbon Dioxide 21 L BUN 51 H Creatinine 2.6 H Glucose 214 H POC Glucose 280 H 257 H Lactic Acid Calcium 8.3 L TIBC Ferritin Lactate Dehydrogenase Vitamin B12 Crossmatch 08/15/16 08/16/16 08/16/16 23:40 05:25 07:20 WBC RBC Hgb Hct RDW Seg Neuts % (Manual) Lymphocytes % (Manual) Monocytes % (Manual) Seg Neutrophils # Man Monocytes # (Manual) Eosinophils # (Manual) D-Dimer POC ABG pCO2 POC ABG pO2 Sodium Potassium Chloride Carbon Dioxide BUN Creatinine Glucose POC Glucose 179 H 140 H 147 H Lactic Acid Calcium TIBC Ferritin Lactate Dehydrogenase Vitamin B12 Crossmatch 08/16/16 08/16/16 08/16/16 09:20 09:20 11:28 WBC 35.1 H RBC 2.78 L Hgb 7.9 L Hct 24.7 L RDW 18.5 H Seg Neuts % (Manual) Lymphocytes % (Manual) Monocytes % (Manual) Seg Neutrophils # Man Monocytes # (Manual) Eosinophils # (Manual) D-Dimer POC ABG pCO2 POC ABG pO2 Sodium 136 L Potassium 3.5 L Chloride Carbon Dioxide 17 L BUN 62 H Creatinine 3.3 H Glucose 128 H POC Glucose 150 H Lactic Acid Calcium 7.7 L TIBC Ferritin Lactate Dehydrogenase Vitamin B12 Crossmatch 08/16/16 08/16/16 08/17/16 15:39 23:45 05:03 WBC RBC Hgb Hct RDW Seg Neuts % (Manual) Lymphocytes % (Manual) Monocytes % (Manual) Seg Neutrophils # Man Monocytes # (Manual) Eosinophils # (Manual) D-Dimer POC ABG pCO2 POC ABG pO2 Sodium Potassium Chloride Carbon Dioxide BUN Creatinine Glucose POC Glucose 106 H 156 H 287 H Lactic Acid Calcium TIBC Ferritin Lactate Dehydrogenase Vitamin B12 Crossmatch 08/17/16 08/17/16 08/17/16 08:40 08:40 12:11 WBC 37.0 H RBC 2.91 L Hgb 8.3 L Hct 25.8 L RDW 18.5 H Seg Neuts % (Manual) Lymphocytes % (Manual) Monocytes % (Manual) Seg Neutrophils # Man Monocytes # (Manual) Eosinophils # (Manual) D-Dimer POC ABG pCO2 POC ABG pO2 Sodium 136 L Potassium Chloride 96.0 L Carbon Dioxide 16 L BUN 78 H Creatinine 4.0 H Glucose 330 H POC Glucose 345 H Lactic Acid Calcium 8.3 L TIBC Ferritin Lactate Dehydrogenase Vitamin B12 Crossmatch 08/17/16 08/17/16 08/17/16 15:34 17:40 20:07 WBC RBC Hgb Hct RDW Seg Neuts % (Manual) Lymphocytes % (Manual) Monocytes % (Manual) Seg Neutrophils # Man Monocytes # (Manual) Eosinophils # (Manual) D-Dimer POC ABG pCO2 POC ABG pO2 Sodium Potassium Chloride Carbon Dioxide BUN Creatinine Glucose POC Glucose < 40 L 403 H 439 H Lactic Acid Calcium TIBC Ferritin Lactate Dehydrogenase Vitamin B12 Crossmatch 08/18/16 08/18/16 08/18/16 00:16 05:03 12:34 WBC RBC Hgb Hct RDW Seg Neuts % (Manual) Lymphocytes % (Manual) Monocytes % (Manual) Seg Neutrophils # Man Monocytes # (Manual) Eosinophils # (Manual) D-Dimer POC ABG pCO2 POC ABG pO2 Sodium Potassium Chloride Carbon Dioxide BUN Creatinine Glucose POC Glucose 457 H 388 H 313 H Lactic Acid Calcium TIBC Ferritin Lactate Dehydrogenase Vitamin B12 Crossmatch 08/18/16 08/18/16 08/19/16 13:16 17:50 02:14 WBC RBC Hgb Hct RDW Seg Neuts % (Manual) Lymphocytes % (Manual) Monocytes % (Manual) Seg Neutrophils # Man Monocytes # (Manual) Eosinophils # (Manual) D-Dimer POC ABG pCO2 POC ABG pO2 Sodium Potassium Chloride Carbon Dioxide 15 L BUN 100 H Creatinine 4.5 H Glucose 286 H POC Glucose 195 H 118 H Lactic Acid Calcium 8.3 L TIBC Ferritin Lactate Dehydrogenase Vitamin B12 Crossmatch 08/19/16 08/19/16 08/19/16 12:23 12:23 17:35 WBC 30.9 H RBC 3.45 L Hgb 9.7 L Hct RDW 18.6 H Seg Neuts % (Manual) 89.5 H Lymphocytes % (Manual) 6.0 L Monocytes % (Manual) Seg Neutrophils # Man 27.7 H Monocytes # (Manual) Eosinophils # (Manual) D-Dimer POC ABG pCO2 POC ABG pO2 Sodium Potassium Chloride Carbon Dioxide 16 L BUN 116 H Creatinine 5.0 H Glucose 102 H POC Glucose 181 H Lactic Acid Calcium TIBC Ferritin Lactate Dehydrogenase Vitamin B12 Crossmatch 08/19/16 08/20/16 08/20/16 23:56 06:03 06:31 WBC RBC Hgb Hct RDW Seg Neuts % (Manual) Lymphocytes % (Manual) Monocytes % (Manual) Seg Neutrophils # Man Monocytes # (Manual) Eosinophils # (Manual) D-Dimer POC ABG pCO2 POC ABG pO2 Sodium Potassium Chloride Carbon Dioxide BUN Creatinine Glucose POC Glucose 239 H 278 H 286 H Lactic Acid Calcium TIBC Ferritin Lactate Dehydrogenase Vitamin B12 Crossmatch 08/20/16 08/20/16 08/20/16 07:55 07:55 12:53 WBC 28.6 H RBC 3.45 L Hgb 9.7 L Hct RDW 18.7 H Seg Neuts % (Manual) 93.0 H Lymphocytes % (Manual) 5.5 L Monocytes % (Manual) Seg Neutrophils # Man 26.6 H Monocytes # (Manual) Eosinophils # (Manual) D-Dimer POC ABG pCO2 POC ABG pO2 Sodium Potassium Chloride Carbon Dioxide 15 L BUN 134 H Creatinine 5.1 H Glucose 284 H POC Glucose 242 H Lactic Acid Calcium 8.1 L TIBC Ferritin Lactate Dehydrogenase Vitamin B12 Crossmatch 08/21/16 08/21/16 08/21/16 00:32 04:00 Unknown WBC 34.9 H RBC 3.56 L Hgb 10.0 L Hct RDW 18.2 H Seg Neuts % (Manual) 94.0 H Lymphocytes % (Manual) 4.0 L Monocytes % (Manual) Seg Neutrophils # Man 32.8 H Monocytes # (Manual) Eosinophils # (Manual) D-Dimer POC ABG pCO2 POC ABG pO2 Sodium Potassium Chloride 96.2 L Carbon Dioxide 18 L BUN 95 H Creatinine 3.6 H Glucose 208 H POC Glucose 210 H Lactic Acid Calcium 8.0 L TIBC Ferritin Lactate Dehydrogenase Vitamin B12 Crossmatch Allied health notes reviewed: nursing
--- NOTE | 2016-08-21 12:03 | Progress Note ---
Assessment and Plan Assessment and plan: 1. Polymicrobial sepsis ID input appreciated, vas cath was removed, continue antibiotics Follow-up echocardiogram 2. C. difficile Continue PO vanco 3. End-stage renal disease HD per renal 4. Sacral decubitus- Continue wound care 5. Diabetes Optimize insulins PT eval, will need SNF placement History Interval history: Her nurse notes that she's been confused and talking to herself, she been confused and not obeying commands. No fevers overnight. He has not been agitated, the patient herself does not voice any complaints. Hospitalist Physical - Physical exam Narrative exam: General: Patient appears well in no distress HEENT: MMM, EOMI cardiac: S1-S2 heard lungs: clear to auscultation, abdomen: soft, nontender, nondistended bowel sounds positive extremities: no edema clubbing or cyanosis Skin: no rash or lesion Neuro: Right hemiparesis Psych: Confused, disoriented - Constitutional Vitals: Temp Pulse Resp BP Pulse Ox 98.4 F 106 H 20 131/72 100 08/21/16 08:28 08/21/16 10:00 08/21/16 08:28 08/21/16 08:28 08/21/16 08:28 General appearance: Present: no acute distress, well-nourished Results - Labs CBC & Chem 7: 08/21/16 Unknown 08/21/16 04:00 Labs: Laboratory Last Values WBC 34.9 K/mm3 (4.5-11.0) H 08/21/16 Unknown RBC 3.56 M/mm3 (3.65-5.03) L 08/21/16 Unknown Hgb 10.0 gm/dl (10.1-14.3) L 08/21/16 Unknown Hct 31.1 % (30.3-42.9) 08/21/16 Unknown MCV 87 fl (79-97) 08/21/16 Unknown MCH 28 pg (28-32) 08/21/16 Unknown MCHC 32 % (30-34) 08/21/16 Unknown RDW 18.2 % (13.2-15.2) H 08/21/16 Unknown Plt Count 321 K/mm3 (140-440) 08/21/16 Unknown Add Manual Diff Complete 08/21/16 Unknown Total Counted 200 08/21/16 Unknown Seg Neutrophils % Executive Chef Assistant 08/21/16 Unknown Seg Neuts % (Manual) 94.0 % (40.0-70.0) H 08/21/16 Unknown Band Neutrophils % 0.5 % 08/21/16 Unknown Lymphocytes % (Manual) 4.0 % (13.4-35.0) L 08/21/16 Unknown Reactive Lymphs % (Man) 0 % 08/21/16 Unknown Monocytes % (Manual) 0.5 % (0.0-7.3) 08/21/16 Unknown Eosinophils % (Manual) 0 % (0.0-4.3) 08/21/16 Unknown Basophils % (Manual) 0 % (0.0-1.8) 08/21/16 Unknown Metamyelocytes % 0.5 % 08/21/16 Unknown Myelocytes % 0.5 % 08/21/16 Unknown Promyelocytes % 0 % 08/21/16 Unknown Blast Cells % 0 % 08/21/16 Unknown Nucleated RBC % Not Reportable 08/21/16 Unknown Seg Neutrophils # Man 32.8 K/mm3 (1.8-7.7) H 08/21/16 Unknown Band Neutrophils # 0.2 K/mm3 08/21/16 Unknown Lymphocytes # (Manual) 1.4 K/mm3 (1.2-5.4) 08/21/16 Unknown Abs React Lymphs (Man) 0.0 K/mm3 08/21/16 Unknown Monocytes # (Manual) 0.2 K/mm3 (0.0-0.8) 08/21/16 Unknown Eosinophils # (Manual) 0.0 K/mm3 (0.0-0.4) 08/21/16 Unknown Basophils # (Manual) 0.0 K/mm3 (0.0-0.1) 08/21/16 Unknown Metamyelocytes # 0.2 K/mm3 08/21/16 Unknown Myelocytes # 0.2 K/mm3 08/21/16 Unknown Promyelocytes # 0.0 K/mm3 08/21/16 Unknown Blast Cells # 0.0 K/mm3 08/21/16 Unknown Pathologist Review 08/11/16 15:28 WBC Morphology Not Reportable 08/21/16 Unknown Hypersegmented Neuts Not Reportable 08/21/16 Unknown Hyposegmented Neuts Not Reportable 08/21/16 Unknown Hypogranular Neuts Not Reportable 08/21/16 Unknown Smudge Cells Not Reportable 08/21/16 Unknown Toxic Granulation Not Reportable 08/21/16 Unknown Toxic Vacuolation Not Reportable 08/21/16 Unknown Dohle Bodies Not Reportable 08/21/16 Unknown Pelger-Huet Anomaly Not Reportable 08/21/16 Unknown Quynh Rods Not Reportable 08/21/16 Unknown Platelet Estimate Appears normal 08/21/16 Unknown Clumped Platelets Not Reportable 08/21/16 Unknown Plt Clumps, EDTA Not Reportable 08/21/16 Unknown Large Platelets Not Reportable 08/21/16 Unknown Giant Platelets Not Reportable 08/21/16 Unknown Platelet Satelliting Not Reportable 08/21/16 Unknown Plt Morphology Comment Not Reportable 08/21/16 Unknown RBC Morphology Not Reportable 08/21/16 Unknown Dimorphic RBCs Not Reportable 08/21/16 Unknown Polychromasia Not Reportable 08/21/16 Unknown Hypochromasia 1+ 08/21/16 Unknown Poikilocytosis Not Reportable 08/21/16 Unknown Anisocytosis 1+ 08/21/16 Unknown Microcytosis Not Reportable 08/21/16 Unknown Macrocytosis Not Reportable 08/21/16 Unknown Spherocytes Not Reportable 08/21/16 Unknown Pappenheimer Bodies Not Reportable 08/21/16 Unknown Sickle Cells Not Reportable 08/21/16 Unknown Target Cells Few 08/21/16 Unknown Tear Drop Cells Not Reportable 08/21/16 Unknown Ovalocytes Not Reportable 08/21/16 Unknown Helmet Cells Not Reportable 08/21/16 Unknown [place] Bodies Not Reportable 08/21/16 Unknown Home Rings Not Reportable 08/21/16 Unknown David Cells Not Reportable 08/21/16 Unknown Bite Cells Not Reportable 08/21/16 Unknown Crenated Cell Not Reportable 08/21/16 Unknown Elliptocytes Not Reportable 08/21/16 Unknown Acanthocytes (Spur) Not Reportable 08/21/16 Unknown Rouleaux Not Reportable 08/21/16 Unknown Hemoglobin C Crystals Not Reportable 08/21/16 Unknown Schistocytes Not Reportable 08/21/16 Unknown Malaria parasites Not Reportable 08/21/16 Unknown Percent Retic 2.01 % (0.78-2.58) 08/12/16 12:16 Vinny Bodies Not Reportable 08/21/16 Unknown Hem Pathologist Commnt No 08/21/16 Unknown D-Dimer 5042.20 ng/mlDDU (0-234) H 08/12/16 16:18 POC ABG pH 7.444 (7.35-7.45) 08/12/16 15:23 POC ABG pCO2 29.4 (35-45) L 08/12/16 15:23 POC ABG pO2 51 (80-105) L 08/12/16 15:23 POC ABG HCO3 20.2 08/12/16 15:23 POC ABG Total CO2 21 08/12/16 15:23 POC ABG O2 Sat 88 08/12/16 15:23 POC ABG Base Excess -4 08/12/16 15:23 FiO2 2 % 08/12/16 15:23 Sodium 140 mmol/L (137-145) 08/21/16 04:00 Potassium 4.4 mmol/L (3.6-5.0) 08/21/16 04:00 Chloride 96.2 mmol/L (98-107) L 08/21/16 04:00 Carbon Dioxide 18 mmol/L (22-30) L 08/21/16 04:00 Anion Gap 30 mmol/L 08/21/16 04:00 BUN 95 mg/dL (7-17) H 08/21/16 04:00 Creatinine 3.6 mg/dL (0.7-1.2) H 08/21/16 04:00 Estimated GFR 15 ml/min 08/21/16 04:00 BUN/Creatinine Ratio 26.38 % 08/21/16 04:00 Glucose 208 mg/dL (65-100) H 08/21/16 04:00 POC Glucose 210 (70-105) H 08/21/16 00:32 Lactic Acid 2.0 mmol/L (0.7-2.0) 08/12/16 05:30 Calcium 8.0 mg/dL (8.4-10.2) L 08/21/16 04:00 Magnesium 2.2 mg/dL (1.7-2.3) 08/11/16 15:28 Iron 62 ug/dL (37-170) 08/12/16 12:16 TIBC 101 mcg/dL (250-450) L 08/12/16 12:16 Ferritin 2000.0 ng/mL (13.0-400.0) H 08/12/16 12:16 Total Bilirubin 1.0 mg/dL (0.1-1.2) 08/11/16 15:28 AST 258 units/L (5-40) H 08/11/16 15:28 ALT 201 units/L (7-56) H 08/11/16 15:28 Alkaline Phosphatase 458 units/L (35-129) H 08/11/16 15:28 Ammonia 49.0 umol/L (25-60) 08/15/16 06:00 Lactate Dehydrogenase 276 units/L (91-180) H 08/12/16 12:16 C-Reactive Protein 37.70 mg/dL (0.00-1.30) H 08/11/16 15:28 Total Protein 7.1 g/dL (6.3-8.2) 08/11/16 15:28 Albumin 2.3 g/dL (3.9-5) L 08/11/16 15:28 Albumin/Globulin Ratio 0.5 % 08/11/16 15:28 Vitamin B12 1117 pg/mL (211-911) H 08/12/16 12:16 Folate 18.10 ng/mL (7.3-26.0) 08/12/16 12:16 TSH 1.360 mlU/mL (0.270-4.200) 08/11/16 15:28 Urine Color Hortencia (Yellow) 08/11/16 15:17 Urine Turbidity Turbid (Clear) 08/11/16 15:17 Urine pH 5.0 (5.0-7.0) 08/11/16 15:17 Ur Specific [place] 1.022 (1.003-1.030) 08/11/16 15:17 Urine Protein >500 mg/dL (Negative) 08/11/16 15:17 Urine Glucose (UA) Neg mg/dL (Negative) 08/11/16 15:17 Urine Ketones Tr mg/dL (Negative) 08/11/16 15:17 Urine Blood Sm (Negative) 08/11/16 15:17 Urine Nitrite Neg (Negative) 08/11/16 15:17 Ur Reducing Substances Not Reportable 08/11/16 15:17 Urine Bilirubin Neg (Negative) 12/17/16 15:17 Urine Ictotest Not Reportable 08/11/16 15:17 Urine Urobilinogen < 2.0 mg/dL (<2.0) 08/11/16 15:17 Ur Leukocyte Esterase Mod (Negative) 08/11/16 15:17 Urine WBC (Auto) > 182.0 /HPF (0.0-6.0) H 08/11/16 15:17 Urine RBC (Auto) 48.0 /HPF (0.0-6.0) 08/11/16 15:17 U Epithel Cells (Auto) 4.0 /HPF (0-13.0) 08/11/16 15:17 Urine Bacteria (Auto) 4+ /HPF (Negative) 08/11/16 15:17 Urine HCG, Qual Negative (Negative) 08/11/16 15:17 Random Vancomycin 13.7 ug/mL (0-40.0) 08/15/16 06:00 Salicylates < 0.3 mg/dL (2.8-20.0) L 08/11/16 15:28 Urine Opiates Screen Presumptive negative 08/11/16 15:17 Urine Methadone Screen Presumptive negative 08/11/16 15:17 Acetaminophen < 15.0 ug/mL (10.0-30.0) 08/11/16 15:28 Ur Barbiturates Screen Presumptive negative 08/11/16 15:17 Ur Phencyclidine Scrn Presumptive negative 08/11/16 15:17 Ur Amphetamines Screen Presumptive negative 08/11/16 15:17 U Benzodiazepines Scrn Presumptive negative 08/11/16 15:17 Urine Cocaine Screen Presumptive negative 08/11/16 15:17 U Marijuana (THC) Screen Presumptive negative 08/11/16 15:17 Drugs of Abuse Note Disclamer 08/11/16 15:17 Plasma/Serum Alcohol < 0.01 gm% (0-0.07) 08/11/16 15:28 Blood Type B POSITIVE 08/11/16 19:45 Antibody Screen Negative 08/11/16 19:45 Crossmatch See Detail 08/11/16 19:45
[2016-08-21] MEDS: LEVEMIR SUB-Q SCH (14:46)
[2016-08-21] MEDS: HEPARIN IV PRN (16:12)
[2016-08-21] MEDS: PROCRIT IV PRN (17:42)
[2016-08-21] MEDS: MERREM 1,000 MG in NACL 0.9% 100 ML IV SCH (22:21)
[2016-08-22] MEDS: NOVOLOG SUB-Q SCH ×2 (00:55→05:56)
[2016-08-22] MEDS: NACL 0.9% IV SCH (05:30)
[2016-08-22] MEDS: CUBICIN IV SCH (05:30)
[2016-08-22] MEDS: VANCOMYCIN PO SCH ×3 (05:48→18:41)
[2016-08-22 07:36] LABS: Hematocrit 26.7 % (30.3-42.9); Hemoglobin 8.7 gm/dl (10.1-14.3); Mean Corpuscular HGB Conc 33 % (30-34); Mean Corpuscular Hemoglobin 29 pg (28-32); Mean Corpuscular Volume 89 fl (79-97); Platelet Count 283 K/mm3 (140-440); Red Blood Count 2.98 M/mm3 (3.65-5.03); Red Cell Distribution Width 18.3 % (13.2-15.2)
[2016-08-22 07:44] LABS: BUN/Creatinine Ratio 19.35; Calcium 7.6 mg/dL (8.4-10.2); Chloride 98.4 mmol/L (98-107); Potassium 3.2 mmol/L (3.6-5.0)
[2016-08-22 07:51] LABS: White Blood Count 29.9 K/mm3 (4.5-11.0)
[2016-08-22] MEDS: DUONEB 0.5 MG-3 MG/3 ML SOLN IH SCH ×3 (08:51→21:00)
--- NOTE | 2016-08-22 08:53 | Echocardiography Report ---
Transthoracic Echocardiogram Indication: Bacteremia BP: 157/71 Conclusions *The left ventricular chamber size is normal *Moderate concentric LVH is noted. *The estimated ejection fraction is 45-50%. *Abnormal left ventricular diastolic filling is observed, consistent with impaired relaxation. *The left atrium is normal in size with no visual thrombus identified. *The aortic valve leaflets are mildly thickened. *There is no evidence of aortic stenosis. *There is mitral annular calcification. *The mitral valve leaflets are mildly thickened. *Mild mitral leaflet calcification is visualized. *There is trace of mitral regurgitation. *There is mild to moderate tricuspid regurgitation. *The right ventricular systolic pressure is calculated at 45 mmHg. *There is evidence of mild pulmonary hypertension. *The inferior vena cava is not visualized. Findings Procedure Info: The study quality is technically difficult. Left Ventricle: The left ventricular chamber size is mildly dilated. The estimated ejection fraction is 45-50%. Abnormal left ventricular diastolic filling is observed, consistent with impaired relaxation. Left Atrium: The left atrium is normal in size with no visual thrombus identified. Right Ventricle: The right ventricular cavity size is normal. The right ventricular global systolic function is normal. Right Atrium: The right atrium appears normal. The interatrial septum appears normal. Aortic Valve: The aortic valve leaflets are mildly thickened. Mild aortic leaflet calcification is visualized. There is no evidence of aortic regurgitation. There is no evidence of aortic stenosis. Mitral Valve: There is mitral annular calcification. The mitral valve leaflets are mildly thickened. Mild mitral leaflet calcification is visualized. There is trace of mitral regurgitation. There is no evidence of mitral stenosis. Tricuspid Valve: The tricuspid valve leaflets are normal. There is mild to moderate tricuspid regurgitation. The right ventricular systolic pressure is calculated at 45 mmHg. There is evidence of mild pulmonary hypertension. There is no tricuspid stenosis. Pulmonic Valve: The pulmonic valve appears normal. There is no evidence of pulmonic regurgitation. There is no pulmonic stenosis. Pericardium: There is no pericardial effusion. Aorta: There is no dilatation of the ascending aorta. There is no dilatation of the aortic arch. There is no dilatation of the descending thoracic aorta. There is no dilatation of the aortic root. Venous: The inferior vena cava is not visualized. Measurements Chambers MM Name Value Normal Range Ao root diameter (MM) 3 cm (2 - 3.7) LA dimension (AP) MM 3.6 cm (1.9 - 4) LA:Ao ratio (MM) 1.2 ratio - AV cusp separation (MM) 1.8 cm (1.5 - 2.6) Chambers 2D Name Value Normal Range RVIDd (AP) 2D 3.17 cm (0.9 - 2.6) IVSd (2D) 1.31 cm (0.6 - 1.1) LVPWd (2D) 1.42 cm (0.6 - 1.1) IVS:LVPW ratio (2D) 0.92 ratio - LVIDd (2D) 3.31 cm (3.7 - 5.6) LVIDs (2D) 2.52 cm (2 - 3.8) LV FS (Teichholz) (2D) 23.9 % - LV FS (cube) (2D) 23.9 % - EF Teichholz (2D) 48.8 % - LA dimension (AP) 2D 4 cm (1.9 - 4) Volumes/Mass Name Value Normal Range LA ESV SP 4CH (MOD) 51 ml - LA ESV SP 2CH (MOD) 37 ml - LA ESV BP (MOD) 44 ml - LA ESV BP (MOD) index 22.3 ml/m2 - Diastolic/Systolic Function Name Value Normal Range MV E-wave Vmax 1.45 m/sec - MV deceleration time 130 msec - LV septal e' Vmax 0.05 m/sec - LV lateral e' Vmax 0.06 m/sec - LV E:e' septal ratio 28.3 ratio - LV E:e' lateral ratio 22.6 ratio - Aortic Valve Name Value Normal Range AV VTI 21.1 cm - AV mean gradient 4 mmHg - LVOT diameter 2 cm - LVOT VTI 18.1 cm - LVOT mean gradient 2 mmHg - SV LVOT 57 ml - BILLIE (continuity VTI) 2.69 cm2 - Mitral Valve Name Value Normal Range MV Vmax 1.74 m/sec - MV VTI 22.4 cm - MV peak gradient 12 mmHg - MV mean gradient 5 mmHg - MV PHT 35 msec - MR Vmax 2.98 m/sec - MVA (PHT) 6.29 cm2 - MVA (continuity VTI) 2.54 cm2 - Tricuspid Valve Name Value Normal Range TR Vmax 3.23 m/sec - TR peak gradient 42 mmHg - RAP 3 mmHg - RVSP 45 mmHg - Pulmonic Valve/Qp:Qs Name Value Normal Range PV Vmax 0.97 m/sec - PV peak gradient 4 mmHg - PV acceleration time 106 msec -
--- NOTE | 2016-08-22 10:12 | Progress Note ---
Assessment and Plan Assessment and plan: 1. Polymicrobial sepsis ID input appreciated, vas cath was removed, continue antibiotics Follow-up echocardiogram 2. C. difficile Continue PO vanco 3. End-stage renal disease HD per renal 4. Sacral decubitus- Continue wound care 5. Diabetes Optimize insulins PT eval, will need SNF placement History Interval history: Her nurse notes that she's been confused and talking to herself, she been confused and not obeying commands. No fevers overnight. He has not been agitated, the patient herself does not voice any complaints. Hospitalist Physical - Physical exam Narrative exam: General: Patient appears well in no distress HEENT: MMM, EOMI cardiac: S1-S2 heard lungs: clear to auscultation, abdomen: soft, nontender, nondistended bowel sounds positive extremities: no edema clubbing or cyanosis Skin: no rash or lesion Neuro: Right hemiparesis Psych: Confused, disoriented - Constitutional Vitals: Temp Pulse Resp BP Pulse Ox 99.2 F 103 H 20 112/52 100 08/22/16 09:32 08/22/16 09:32 08/22/16 09:32 08/22/16 09:32 08/22/16 09:32 General appearance: Present: no acute distress, well-nourished Results - Labs CBC & Chem 7: 08/22/16 07:05 08/22/16 07:05 Labs: Laboratory Last Values WBC 29.9 K/mm3 (4.5-11.0) H 08/22/16 07:05 RBC 2.98 M/mm3 (3.65-5.03) L 08/22/16 07:05 Hgb 8.7 gm/dl (10.1-14.3) L 08/22/16 07:05 Hct 26.7 % (30.3-42.9) L 08/22/16 07:05 MCV 89 fl (79-97) 08/22/16 07:05 MCH 29 pg (28-32) 08/22/16 07:05 MCHC 33 % (30-34) 08/22/16 07:05 RDW 18.3 % (13.2-15.2) H 08/22/16 07:05 Plt Count 283 K/mm3 (140-440) 08/22/16 07:05 Add Manual Diff Complete 08/21/16 Unknown Total Counted 200 08/21/16 Unknown Seg Neutrophils % Multi Operation Machine Operator 08/21/16 Unknown Seg Neuts % (Manual) 94.0 % (40.0-70.0) H 08/21/16 Unknown Band Neutrophils % 0.5 % 08/21/16 Unknown Lymphocytes % (Manual) 4.0 % (13.4-35.0) L 08/21/16 Unknown Reactive Lymphs % (Man) 0 % 08/21/16 Unknown Monocytes % (Manual) 0.5 % (0.0-7.3) 08/21/16 Unknown Eosinophils % (Manual) 0 % (0.0-4.3) 08/21/16 Unknown Basophils % (Manual) 0 % (0.0-1.8) 08/21/16 Unknown Metamyelocytes % 0.5 % 08/21/16 Unknown Myelocytes % 0.5 % 08/21/16 Unknown Promyelocytes % 0 % 08/21/16 Unknown Blast Cells % 0 % 08/21/16 Unknown Nucleated RBC % Not Reportable 08/21/16 Unknown Seg Neutrophils # Man 32.8 K/mm3 (1.8-7.7) H 08/21/16 Unknown Band Neutrophils # 0.2 K/mm3 08/21/16 Unknown Lymphocytes # (Manual) 1.4 K/mm3 (1.2-5.4) 08/21/16 Unknown Abs React Lymphs (Man) 0.0 K/mm3 08/21/16 Unknown Monocytes # (Manual) 0.2 K/mm3 (0.0-0.8) 08/21/16 Unknown Eosinophils # (Manual) 0.0 K/mm3 (0.0-0.4) 08/21/16 Unknown Basophils # (Manual) 0.0 K/mm3 (0.0-0.1) 08/21/16 Unknown Metamyelocytes # 0.2 K/mm3 08/21/16 Unknown Myelocytes # 0.2 K/mm3 08/21/16 Unknown Promyelocytes # 0.0 K/mm3 08/21/16 Unknown Blast Cells # 0.0 K/mm3 08/21/16 Unknown Pathologist Review 08/19/16 12:23 WBC Morphology Not Reportable 08/21/16 Unknown Hypersegmented Neuts Not Reportable 08/21/16 Unknown Hyposegmented Neuts Not Reportable 08/21/16 Unknown Hypogranular Neuts Not Reportable 08/21/16 Unknown Smudge Cells Not Reportable 08/21/16 Unknown Toxic Granulation Not Reportable 08/21/16 Unknown Toxic Vacuolation Not Reportable 08/21/16 Unknown Dohle Bodies Not Reportable 08/21/16 Unknown Pelger-Huet Anomaly Not Reportable 08/21/16 Unknown Quynh Rods Not Reportable 08/21/16 Unknown Platelet Estimate Appears normal 08/21/16 Unknown Clumped Platelets Not Reportable 08/21/16 Unknown Plt Clumps, EDTA Not Reportable 08/21/16 Unknown Large Platelets Not Reportable 08/21/16 Unknown Giant Platelets Not Reportable 08/21/16 Unknown Platelet Satelliting Not Reportable 08/21/16 Unknown Plt Morphology Comment Not Reportable 08/21/16 Unknown RBC Morphology Not Reportable 08/21/16 Unknown Dimorphic RBCs Not Reportable 08/21/16 Unknown Polychromasia Not Reportable 08/21/16 Unknown Hypochromasia 1+ 08/21/16 Unknown Poikilocytosis Not Reportable 08/21/16 Unknown Anisocytosis 1+ 08/21/16 Unknown Microcytosis Not Reportable 08/21/16 Unknown Macrocytosis Not Reportable 08/21/16 Unknown Spherocytes Not Reportable 08/21/16 Unknown Pappenheimer Bodies Not Reportable 08/21/16 Unknown Sickle Cells Not Reportable 08/21/16 Unknown Target Cells Few 08/21/16 Unknown Tear Drop Cells Not Reportable 08/21/16 Unknown Ovalocytes Not Reportable 08/21/16 Unknown Helmet Cells Not Reportable 08/21/16 Unknown [place] Bodies Not Reportable 08/21/16 Unknown [place] Rings Not Reportable 08/21/16 Unknown David Cells Not Reportable 08/21/16 Unknown Bite Cells Not Reportable 08/21/16 Unknown Crenated Cell Not Reportable 08/21/16 Unknown Elliptocytes Not Reportable 08/21/16 Unknown Acanthocytes (Spur) Not Reportable 08/21/16 Unknown Rouleaux Not Reportable 08/21/16 Unknown Hemoglobin C Crystals Not Reportable 08/21/16 Unknown Schistocytes Not Reportable 08/21/16 Unknown Malaria parasites Not Reportable 08/21/16 Unknown Percent Retic 2.01 % (0.78-2.58) 08/12/16 12: Vinny Bodies Not Reportable 08/21/16 Unknown Hem Pathologist Commnt No 08/21/16 Unknown D-Dimer 5042.20 ng/mlDDU (0-234) H 08/12/16 16:18 POC ABG pH 7.444 (7.35-7.45) 08/12/16 15:23 POC ABG pCO2 29.4 (35-45) L 08/12/16 15:23 POC ABG pO2 51 (80-105) L 08/12/16 15:23 POC ABG HCO3 20.2 08/12/16 15:23 POC ABG Total CO2 21 08/12/16 15:23 POC ABG O2 Sat 88 08/12/16 15:23 POC ABG Base Excess -4 08/12/16 15:23 FiO2 2 % 08/12/16 15:23 Sodium 142 mmol/L (137-145) 08/22/16 07:05 Potassium 3.2 mmol/L (3.6-5.0) L D 08/22/16 07:05 Chloride 98.4 mmol/L (98-107) 08/22/16 07:05 Carbon Dioxide 22 mmol/L (22-30) 08/22/16 07:05 Anion Gap 25 mmol/L 08/22/16 07:05 BUN 60 mg/dL (7-17) H 08/22/16 07:05 Creatinine 3.1 mg/dL (0.7-1.2) H 08/22/16 07:05 Estimated GFR 18 ml/min 08/22/16 07:05 BUN/Creatinine Ratio 19.35 % 08/22/16 07:05 Glucose 213 mg/dL (65-100) H 08/22/16 07:05 POC Glucose 218 (70-105) H 08/22/16 05:16 Lactic Acid 2.0 mmol/L (0.7-2.0) 08/12/16 05:30 Calcium 7.6 mg/dL (8.4-10.2) L 08/22/16 07:05 Magnesium 2.2 mg/dL (1.7-2.3) 08/11/16 15:28 Iron 62 ug/dL (37-170) 08/12/16 12:16 TIBC 101 mcg/dL (250-450) L 08/12/16 12:16 Ferritin 2000.0 ng/mL (13.0-400.0) H 08/12/16 12:16 Total Bilirubin 1.0 mg/dL (0.1-1.2) 08/11/16 15:28 AST 258 units/L (5-40) H 08/11/16 15:28 ALT 201 units/L (7-56) H 08/11/16 15:28 Alkaline Phosphatase 458 units/L (35-129) H 08/11/16 15:28 Ammonia 49.0 umol/L (25-60) 08/15/16 06:00 Lactate Dehydrogenase 276 units/L (91-180) H 08/12/16 12:16 C-Reactive Protein 37.70 mg/dL (0.00-1.30) H 08/11/16 15:28 Total Protein 7.1 g/dL (6.3-8.2) 08/11/16 15:28 Albumin 2.3 g/dL (3.9-5) L 08/11/16 15:28 Albumin/Globulin Ratio 0.5 % 08/11/16 15:28 Vitamin B12 1117 pg/mL (211-911) H 08/12/16 12:16 Folate 18.10 ng/mL (7.3-26.0) 08/12/16 12:16 TSH 1.360 mlU/mL (0.270-4.200) 08/11/16 15:28 Urine Color [place] (Yellow) 08/11/16 15:17 Urine Turbidity Turbid (Clear) 08/11/16 15:17 Urine pH 5.0 (5.0-7.0) 08/11/16 15:17 Ur Specific [place] 1.022 (1.003-1.030) 08/11/16 15:17 Urine Protein >500 mg/dL (Negative) 08/11/16 15:17 Urine Glucose (UA) Neg mg/dL (Negative) 08/11/16 15:17 Urine Ketones Tr mg/dL (Negative) 08/11/16 15:17 Urine Blood Sm (Negative) 08/11/16 15:17 Urine Nitrite Neg (Negative) 08/11/16 15:17 Ur Reducing Substances Not Reportable 08/11/16 15:17 Urine Bilirubin Neg (Negative) 08/11/16 15:17 Urine Ictotest Not Reportable 08/11/16 15:17 Urine Urobilinogen < 2.0 mg/dL (<2.0) 08/11/16 15:17 Ur Leukocyte Esterase Mod (Negative) 08/11/16 15:17 Urine WBC (Auto) > 182.0 /HPF (0.0-6.0) H 08/11/16 15:17 Urine RBC (Auto) 48.0 /HPF (0.0-6.0) 08/11/16 15:17 U Epithel Cells (Auto) 4.0 /HPF (0-13.0) 08/11/16 15:17 Urine Bacteria (Auto) 4+ /HPF (Negative) 08/11/16 15:17 Urine HCG, Qual Negative (Negative) 08/11/16 15:17 Random Vancomycin 13.7 ug/mL (0-40.0) 08/15/16 06:00 Salicylates < 0.3 mg/dL (2.8-20.0) L 08/11/16 15:28 Urine Opiates Screen Presumptive negative 08/11/16 15:17 Urine Methadone Screen Presumptive negative 08/11/16 15:17 Acetaminophen < 15.0 ug/mL (10.0-30.0) 08/11/16 15:28 Ur Barbiturates Screen Presumptive negative 08/11/16 15:17 Ur Phencyclidine Scrn Presumptive negative 08/11/16 15:17 Ur Amphetamines Screen Presumptive negative 08/11/16 15:17 U Benzodiazepines Scrn Presumptive negative 08/11/16 15:17 Urine Cocaine Screen Presumptive negative 08/11/16 15:17 U Marijuana (THC) Screen Presumptive negative 08/11/16 15:17 Drugs of Abuse Note Disclamer 08/11/16 15:17 Plasma/Serum Alcohol < 0.01 gm% (0-0.07) 08/11/16 15:28 Blood Type B POSITIVE 08/11/16 19:45 Antibody Screen Negative 08/11/16 19:45 Crossmatch See Detail 08/11/16 19:45
[2016-08-22 10:16] LABS: Anisocytosis 1+; Basophils % (Manual) 0 % (0.0-1.8); Blastocytes % (Manual) 0 %
[2016-08-22 10:17] LABS: Diff Status Complete; Hypochromasia 1+; Stomatocytes Few; Target Cells Few
[2016-08-22] MEDS: MERREM 1,000 MG in NACL 0.9% 100 ML IV SCH (11:00)
--- NOTE | 2016-08-22 11:19 | Progress Note ---
Assessment and Plan Assessment and Plan 1. Septic shock. - resolved - prn lactate levels. - s/p vascath replacement - wound care per WCT - de-escalate AB's per ID recs 2. Toxic metabolic encephalopathy. - Continue treating underlying causes. 3. UTI. - Follow-up urine culture and continue antibiotics. 4. Diabetes mellitus, type II. - Continue Accu-Cheks and sliding scale regular insulin. 5. ESRD. Nephrology consultation pending. - Continue hemodialysis per nephrology. 6. Seizure disorder. - Continue Keppra IV. No new activity. - Seizure precautions. 9. Oropharyngeal dysphagia - s/p PEG- Enteric feeding, glycemic control. Aspiration precautions. Subjective Date of service: 08/22/16 Principal diagnosis: Polymicrobial bacteremia and sepsis; C. difficile infection Interval history: Seen and examined at bedside; 24 hour events reviewed; nursing and respiratory care staff consulted; no adverse overnight events reported to me; remains lethargic; tolerating IV AB's; no acute distress Objective Vital Signs - 12hr 08/22/16 08/22/16 08/22/16 00:00 04:00 08:47 Temperature 97.8 F 98.3 F Pulse Rate [ Anterior Bilateral Throughout] Pulse Rate [ 122 H 130 H From Monitor] Pulse Rate [ Right Radial] Respiratory 18 18 Rate Respiratory Rate [Anterior Bilateral Throughout] Blood Pressure 125/59 137/69 [Left Arm] Blood Pressure [Right Arm] O2 Sat by Pulse 97 98 100 Oximetry 08/22/16 08/22/16 08/22/16 08:48 08:51 09:01 Temperature Pulse Rate [ 101 H 102 H Anterior Bilateral Throughout] Pulse Rate [ From Monitor] Pulse Rate [ Right Radial] Respiratory Rate Respiratory 18 18 Rate [Anterior Bilateral Throughout] Blood Pressure [Left Arm] Blood Pressure [Right Arm] O2 Sat by Pulse 100 Oximetry 08/22/16 09:32 Temperature 99.2 F Pulse Rate [ Anterior Bilateral Throughout] Pulse Rate [ From Monitor] Pulse Rate [ 103 H Right Radial] Respiratory 20 Rate Respiratory Rate [Anterior Bilateral Throughout] Blood Pressure [Left Arm] Blood Pressure 112/52 [Right Arm] O2 Sat by Pulse 100 Oximetry Constitutional: no acute distress, lethargic Eyes: non-icteric ENT: oropharynx moist Neck: supple Effort: mildly labored Ascultation: Bilateral: clear, diminished breath sounds Cardiovascular: regular rate and rhythm Gastrointestinal: normoactive bowel sounds, soft, non-tender, non-distended Integumentary: normal Extremities: no cyanosis, no ischemia or petechiae, other (dressings to feet) Neurologic: non-focal exam (grossly), pupils equal and round Psychiatric: other (unable to assess) CBC and BMP: 08/23/16 05:42 08/23/16 05:42 ABG, PT/INR, D-dimer: ABG POC ABG pH 7.444 (7.35-7.45) 08/12/16 15:23 POC ABG pCO2 29.4 (35-45) L 08/12/16 15:23 POC ABG pO2 51 (80-105) L 08/12/16 15:23 POC ABG HCO3 20.2 08/12/16 15:23 POC ABG Total CO2 21 08/12/16 15:23 POC ABG O2 Sat 88 08/12/16 15:23 PT/INR, D-dimer D-Dimer 5042.20 ng/mlDDU (0-234) H 08/12/16 16:18 Abnormal lab findings: Abnormal Labs 08/11/16 08/11/16 08/12/16 19:45 23:01 02:35 WBC RBC Hgb Hct RDW Seg Neuts % (Manual) Lymphocytes % (Manual) Monocytes % (Manual) Seg Neutrophils # Man Monocytes # (Manual) Eosinophils # (Manual) D-Dimer POC ABG pCO2 POC ABG pO2 Sodium Potassium Chloride Carbon Dioxide BUN Creatinine Glucose POC Glucose 307 H Lactic Acid 3.5 H* Calcium TIBC Ferritin Lactate Dehydrogenase Vitamin B12 Crossmatch See Detail 08/12/16 08/12/16 08/12/16 05:30 05:30 11:09 WBC 38.6 H RBC 3.14 L Hgb 8.7 L Hct 28.1 L D RDW 18.3 H Seg Neuts % (Manual) Lymphocytes % (Manual) 9.0 L Monocytes % (Manual) 8.0 H Seg Neutrophils # Man 16.6 H Monocytes # (Manual) 3.1 H Eosinophils # (Manual) 1.2 H D-Dimer POC ABG pCO2 POC ABG pO2 Sodium 133 L Potassium 3.0 L Chloride 92.4 L Carbon Dioxide 21 L BUN 44 H Creatinine 2.3 H Glucose 270 H POC Glucose 247 H Lactic Acid Calcium 8.2 L TIBC Ferritin Lactate Dehydrogenase Vitamin B12 Crossmatch 08/12/16 08/12/16 08/12/16 12:16 12:16 12:16 WBC RBC Hgb Hct RDW Seg Neuts % (Manual) Lymphocytes % (Manual) Monocytes % (Manual) Seg Neutrophils # Man Monocytes # (Manual) Eosinophils # (Manual) D-Dimer POC ABG pCO2 POC ABG pO2 Sodium Potassium Chloride Carbon Dioxide BUN Creatinine Glucose POC Glucose Lactic Acid Calcium TIBC Ferritin 2000.0 H Lactate Dehydrogenase 276 H Vitamin B12 1117 H Crossmatch 08/12/16 08/12/16 08/12/16 12:16 15:23 16:18 WBC RBC Hgb Hct RDW Seg Neuts % (Manual) Lymphocytes % (Manual) Monocytes % (Manual) Seg Neutrophils # Man Monocytes # (Manual) Eosinophils # (Manual) D-Dimer 5042.20 H POC ABG pCO2 29.4 L POC ABG pO2 51 L Sodium Potassium Chloride Carbon Dioxide BUN Creatinine Glucose POC Glucose Lactic Acid Calcium TIBC 101 L Ferritin Lactate Dehydrogenase Vitamin B12 Crossmatch 08/12/16 08/12/16 08/13/16 17:45 23:36 06:58 WBC RBC Hgb Hct RDW Seg Neuts % (Manual) Lymphocytes % (Manual) Monocytes % (Manual) Seg Neutrophils # Man Monocytes # (Manual) Eosinophils # (Manual) D-Dimer POC ABG pCO2 POC ABG pO2 Sodium Potassium Chloride Carbon Dioxide BUN Creatinine Glucose POC Glucose 196 H 170 H 199 H Lactic Acid Calcium TIBC Ferritin Lactate Dehydrogenase Vitamin B12 Crossmatch 08/13/16 08/13/16 08/13/16 11:25 16:29 21:10 WBC RBC Hgb Hct RDW Seg Neuts % (Manual) Lymphocytes % (Manual) Monocytes % (Manual) Seg Neutrophils # Man Monocytes # (Manual) Eosinophils # (Manual) D-Dimer POC ABG pCO2 POC ABG pO2 Sodium Potassium Chloride Carbon Dioxide BUN Creatinine Glucose POC Glucose 267 H 277 H 203 H Lactic Acid Calcium TIBC Ferritin Lactate Dehydrogenase Vitamin B12 Crossmatch 08/13/16 08/13/16 08/14/16 Unknown Unknown 07:42 WBC 30.0 H RBC 2.75 L Hgb 7.8 L Hct 24.0 L RDW 18.4 H Seg Neuts % (Manual) 75.0 H Lymphocytes % (Manual) 7.0 L Monocytes % (Manual) Seg Neutrophils # Man 22.5 H Monocytes # (Manual) Eosinophils # (Manual) D-Dimer POC ABG pCO2 POC ABG pO2 Sodium 133 L Potassium 3.4 L Chloride 95.2 L Carbon Dioxide 18 L BUN 58 H Creatinine 2.9 H Glucose 201 H POC Glucose 306 H Lactic Acid Calcium 8.2 L TIBC Ferritin Lactate Dehydrogenase Vitamin B12 Crossmatch 08/14/16 08/14/16 08/14/16 08:26 08:26 11:19 WBC 28.9 H RBC 2.92 L Hgb 8.2 L Hct 25.9 L RDW 18.8 H Seg Neuts % (Manual) 85.5 H Lymphocytes % (Manual) 4.5 L Monocytes % (Manual) Seg Neutrophils # Man 24.7 H Monocytes # (Manual) 0.9 H Eosinophils # (Manual) D-Dimer POC ABG pCO2 POC ABG pO2 Sodium Potassium Chloride Carbon Dioxide 15 L BUN 77 H Creatinine 3.5 H Glucose 289 H POC Glucose 274 H Lactic Acid Calcium 8.3 L TIBC Ferritin Lactate Dehydrogenase Vitamin B12 Crossmatch 08/14/16 08/14/16 08/15/16 15:56 21:12 06:00 WBC 30.1 H RBC 2.67 L Hgb 7.8 L Hct 23.4 L RDW 18.4 H Seg Neuts % (Manual) 86.0 H Lymphocytes % (Manual) 4.0 L Monocytes % (Manual) Seg Neutrophils # Man 25.9 H Monocytes # (Manual) 1.8 H Eosinophils # (Manual) D-Dimer POC ABG pCO2 POC ABG pO2 Sodium Potassium Chloride Carbon Dioxide BUN Creatinine Glucose POC Glucose 284 H 357 H Lactic Acid Calcium TIBC Ferritin Lactate Dehydrogenase Vitamin B12 Crossmatch 08/15/16 08/15/16 08/15/16 06:00 11:17 16:43 WBC RBC Hgb Hct RDW Seg Neuts % (Manual) Lymphocytes % (Manual) Monocytes % (Manual) Seg Neutrophils # Man Monocytes # (Manual) Eosinophils # (Manual) D-Dimer POC ABG pCO2 POC ABG pO2 Sodium Potassium 3.5 L Chloride 96.6 L Carbon Dioxide 21 L BUN 51 H Creatinine 2.6 H Glucose 214 H POC Glucose 280 H 257 H Lactic Acid Calcium 8.3 L TIBC Ferritin Lactate Dehydrogenase Vitamin B12 Crossmatch 08/15/16 08/16/16 08/16/16 23:40 05:25 07:20 WBC RBC Hgb Hct RDW Seg Neuts % (Manual) Lymphocytes % (Manual) Monocytes % (Manual) Seg Neutrophils # Man Monocytes # (Manual) Eosinophils # (Manual) D-Dimer POC ABG pCO2 POC ABG pO2 Sodium Potassium Chloride Carbon Dioxide BUN Creatinine Glucose POC Glucose 179 H 140 H 147 H Lactic Acid Calcium TIBC Ferritin Lactate Dehydrogenase Vitamin B12 Crossmatch 08/16/16 08/16/16 08/16/16 09:20 09:20 11:28 WBC 35.1 H RBC 2.78 L Hgb 7.9 L Hct 24.7 L RDW 18.5 H Seg Neuts % (Manual) Lymphocytes % (Manual) Monocytes % (Manual) Seg Neutrophils # Man Monocytes # (Manual) Eosinophils # (Manual) D-Dimer POC ABG pCO2 POC ABG pO2 Sodium 136 L Potassium 3.5 L Chloride Carbon Dioxide 17 L BUN 62 H Creatinine 3.3 H Glucose 128 H POC Glucose 150 H Lactic Acid Calcium 7.7 L TIBC Ferritin Lactate Dehydrogenase Vitamin B12 Crossmatch 08/16/16 08/16/16 08/17/16 15:39 23:45 05:03 WBC RBC Hgb Hct RDW Seg Neuts % (Manual) Lymphocytes % (Manual) Monocytes % (Manual) Seg Neutrophils # Man Monocytes # (Manual) Eosinophils # (Manual) D-Dimer POC ABG pCO2 POC ABG pO2 Sodium Potassium Chloride Carbon Dioxide BUN Creatinine Glucose POC Glucose 106 H 156 H 287 H Lactic Acid Calcium TIBC Ferritin Lactate Dehydrogenase Vitamin B12 Crossmatch 08/17/16 08/17/16 08/17/16 08:40 08:40 12:11 WBC 37.0 H RBC 2.91 L Hgb 8.3 L Hct 25.8 L RDW 18.5 H Seg Neuts % (Manual) Lymphocytes % (Manual) Monocytes % (Manual) Seg Neutrophils # Man Monocytes # (Manual) Eosinophils # (Manual) D-Dimer POC ABG pCO2 POC ABG pO2 Sodium 136 L Potassium Chloride 96.0 L Carbon Dioxide 16 L BUN 78 H Creatinine 4.0 H Glucose 330 H POC Glucose 345 H Lactic Acid Calcium 8.3 L TIBC Ferritin Lactate Dehydrogenase Vitamin B12 Crossmatch 08/17/16 08/17/16 08/17/16 15:34 17:40 20:07 WBC RBC Hgb Hct RDW Seg Neuts % (Manual) Lymphocytes % (Manual) Monocytes % (Manual) Seg Neutrophils # Man Monocytes # (Manual) Eosinophils # (Manual) D-Dimer POC ABG pCO2 POC ABG pO2 Sodium Potassium Chloride Carbon Dioxide BUN Creatinine Glucose POC Glucose < 40 L 403 H 439 H Lactic Acid Calcium TIBC Ferritin Lactate Dehydrogenase Vitamin B12 Crossmatch 08/18/16 08/18/16 08/18/16 00:16 05:03 12:34 WBC RBC Hgb Hct RDW Seg Neuts % (Manual) Lymphocytes % (Manual) Monocytes % (Manual) Seg Neutrophils # Man Monocytes # (Manual) Eosinophils # (Manual) D-Dimer POC ABG pCO2 POC ABG pO2 Sodium Potassium Chloride Carbon Dioxide BUN Creatinine Glucose POC Glucose 457 H 388 H 313 H Lactic Acid Calcium TIBC Ferritin Lactate Dehydrogenase Vitamin B12 Crossmatch 08/18/16 08/18/16 08/19/16 13:16 17:50 02:14 WBC RBC Hgb Hct RDW Seg Neuts % (Manual) Lymphocytes % (Manual) Monocytes % (Manual) Seg Neutrophils # Man Monocytes # (Manual) Eosinophils # (Manual) D-Dimer POC ABG pCO2 POC ABG pO2 Sodium Potassium Chloride Carbon Dioxide 15 L BUN 100 H Creatinine 4.5 H Glucose 286 H POC Glucose 195 H 118 H Lactic Acid Calcium 8.3 L TIBC Ferritin Lactate Dehydrogenase Vitamin B12 Crossmatch 08/19/16 08/19/16 08/19/16 12:23 12:23 17:35 WBC 30.9 H RBC 3.45 L Hgb 9.7 L Hct RDW 18.6 H Seg Neuts % (Manual) 89.5 H Lymphocytes % (Manual) 6.0 L Monocytes % (Manual) Seg Neutrophils # Man 27.7 H Monocytes # (Manual) Eosinophils # (Manual) D-Dimer POC ABG pCO2 POC ABG pO2 Sodium Potassium Chloride Carbon Dioxide 16 L BUN 116 H Creatinine 5.0 H Glucose 102 H POC Glucose 181 H Lactic Acid Calcium TIBC Ferritin Lactate Dehydrogenase Vitamin B12 Crossmatch 08/19/16 08/20/16 08/20/16 23:56 06:03 06:31 WBC RBC Hgb Hct RDW Seg Neuts % (Manual) Lymphocytes % (Manual) Monocytes % (Manual) Seg Neutrophils # Man Monocytes # (Manual) Eosinophils # (Manual) D-Dimer POC ABG pCO2 POC ABG pO2 Sodium Potassium Chloride Carbon Dioxide BUN Creatinine Glucose POC Glucose 239 H 278 H 286 H Lactic Acid Calcium TIBC Ferritin Lactate Dehydrogenase Vitamin B12 Crossmatch 08/20/16 08/20/16 08/20/16 07:55 07:55 12:53 WBC 28.6 H RBC 3.45 L Hgb 9.7 L Hct RDW 18.7 H Seg Neuts % (Manual) 93.0 H Lymphocytes % (Manual) 5.5 L Monocytes % (Manual) Seg Neutrophils # Man 26.6 H Monocytes # (Manual) Eosinophils # (Manual) D-Dimer POC ABG pCO2 POC ABG pO2 Sodium Potassium Chloride Carbon Dioxide 15 L BUN 134 H Creatinine 5.1 H Glucose 284 H POC Glucose 242 H Lactic Acid Calcium 8.1 L TIBC Ferritin Lactate Dehydrogenase Vitamin B12 Crossmatch 08/21/16 08/21/16 08/21/16 00:32 04:00 11:55 WBC RBC Hgb Hct RDW Seg Neuts % (Manual) Lymphocytes % (Manual) Monocytes % (Manual) Seg Neutrophils # Man Monocytes # (Manual) Eosinophils # (Manual) D-Dimer POC ABG pCO2 POC ABG pO2 Sodium Potassium Chloride 96.2 L Carbon Dioxide 18 L BUN 95 H Creatinine 3.6 H Glucose 208 H POC Glucose 210 H 316 H Lactic Acid Calcium 8.0 L TIBC Ferritin Lactate Dehydrogenase Vitamin B12 Crossmatch 08/21/16 08/21/16 08/22/16 21:20 Unknown 00:51 WBC 34.9 H RBC 3.56 L Hgb 10.0 L Hct RDW 18.2 H Seg Neuts % (Manual) 94.0 H Lymphocytes % (Manual) 4.0 L Monocytes % (Manual) Seg Neutrophils # Man 32.8 H Monocytes # (Manual) Eosinophils # (Manual) D-Dimer POC ABG pCO2 POC ABG pO2 Sodium Potassium Chloride Carbon Dioxide BUN Creatinine Glucose POC Glucose 156 H 208 H Lactic Acid Calcium TIBC Ferritin Lactate Dehydrogenase Vitamin B12 Crossmatch 08/22/16 08/22/16 08/22/16 05:16 07:05 07:05 WBC 29.9 H RBC 2.98 L Hgb 8.7 L Hct 26.7 L RDW 18.3 H Seg Neuts % (Manual) 73.0 H Lymphocytes % (Manual) Monocytes % (Manual) 10.0 H Seg Neutrophils # Man 21.8 H Monocytes # (Manual) 3.0 H Eosinophils # (Manual) D-Dimer POC ABG pCO2 POC ABG pO2 Sodium Potassium 3.2 L D Chloride Carbon Dioxide BUN 60 H Creatinine 3.1 H Glucose 213 H POC Glucose 218 H Lactic Acid Calcium 7.6 L TIBC Ferritin Lactate Dehydrogenase Vitamin B12 Crossmatch Allied health notes reviewed: nursing
[2016-08-22] MEDS: HEPARIN SUB-Q SCH ×2 (11:23→22:46)
[2016-08-22] MEDS: LEVEMIR SUB-Q SCH (11:24)
[2016-08-22] MEDS: PEPCID PO SCH (11:40)
[2016-08-22] MEDS: SODIUM BICARBONATE PO SCH ×2 (11:40→22:45)
[2016-08-22] MEDS: KEPPRA PO SCH ×2 (11:40→22:46)
[2016-08-22] MEDS: DILAUDID IV PRN (12:52)
[2016-08-22] MEDS: SIMPLE SYRUP FEEDTUBE PRN (18:40)
[2016-08-23] MEDS: DILAUDID IV PRN ×2 (05:36→09:59)
[2016-08-23] MEDS: VANCOMYCIN PO SCH ×4 (05:38→18:58)
[2016-08-23 06:37] LABS: Hematocrit 27.8 % (30.3-42.9); Hemoglobin 8.9 gm/dl (10.1-14.3); Mean Corpuscular HGB Conc 32 % (30-34); Mean Corpuscular Hemoglobin 29 pg (28-32); Mean Corpuscular Volume 89 fl (79-97); Platelet Count 273 K/mm3 (140-440); Red Blood Count 3.11 M/mm3 (3.65-5.03); Red Cell Distribution Width 18.4 % (13.2-15.2)
[2016-08-23 06:38] LABS: White Blood Count 34.2 K/mm3 (4.5-11.0)
[2016-08-23 06:58] LABS: BUN/Creatinine Ratio 19.44; Calcium 8.1 mg/dL (8.4-10.2); Chloride 99.7 mmol/L (98-107); Potassium 3.2 mmol/L (3.6-5.0)
[2016-08-23] MEDS: DUONEB 0.5 MG-3 MG/3 ML SOLN IH SCH ×4 (07:59→20:20)
[2016-08-23 08:05] LABS: Basophils % (Manual) 0 % (0.0-1.8); Blastocytes % (Manual) 0 %
[2016-08-23 08:06] LABS: Anisocytosis 1+; Microcytosis 1+; Poikilocytosis 1+; Polychromasia Few; Stomatocytes 1+; Target Cells Few; Tear Drop Cells Rare
[2016-08-23 08:07] LABS: Diff Status Complete
[2016-08-23] MEDS: NOVOLOG SUB-Q SCH ×3 (09:58→18:57)
[2016-08-23] MEDS: HEPARIN SUB-Q SCH ×2 (09:59→22:12)
[2016-08-23] MEDS: KEPPRA PO SCH ×2 (10:00→21:23)
[2016-08-23] MEDS: SODIUM BICARBONATE PO SCH ×2 (10:00→21:23)
[2016-08-23] MEDS: PEPCID PO SCH (10:00)
[2016-08-23] MEDS: LEVEMIR SUB-Q SCH (10:11)
[2016-08-23] MEDS: MERREM 1,000 MG in NACL 0.9% 100 ML IV SCH (10:12)
--- NOTE | 2016-08-23 10:27 | Progress Note ---
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 on 08/11/16 with acute mental status change after hemodialysis and found to have sepsis syndrome with marked leukocytosis to 51,000, lactic acidosis(6.7) , and transaminitis. Patient is currently on blood pressure support. Admitting blood cultures are growing blood cultures Gram positive cocci in pairs and Gram negative rods. Persistent leukocytosis despite being on broad spectrum antibiotics and po vancomycin. The persistent leukocytosis could be due to ongoing bowel inflammation, in an ideal situation would like to discontinue all systemic antibiotics in view of cdiff. However because patient has blood stream infection , systemic antibiotics is needed. Problem list: 1. Polymicrobial bacteremia and sepsis, central venous catheter associated, permacath removed on 08/15/16. Enterococcus faecium and ESBL Klebsiella pneumoniae grew in blood culture. Patient had persistent bacteremia from 08/11- 08/16. The Enterococcus faecium grew in blood cultures on 08/16/16. Persistence of bacteremia could also be related to the permacath being removed on 08/15 -echocardiogram with thickened aortic and mitral valved, no vegetation -I would rather use daptomycin over linezolid for the Enterococcus faecium, daptomycin is bacteriacidal vs linezolid is bacteriastatic -E.faecium sensitive to daptomycin --complicated by cdiff, would like to have all systemic antibiotics stopped 2. Left chest wall permacath infection -Status post removal 08/15 -Tip culture grew Proteus mirabilis and VRE faecium 3. C. diff. infection -Toxin assay positive 08/13 -Diarrhea persist with elevated wbc -Po vancomycin started on 08/21/16, previously on flagyl 4. Leukocytosis -Marked elevation to 51,000 -Multifactorial with bacteremia & C diff infection 5. Presacral pressure sore -no sign of active infection -continue aggressive wound care 6. End-stage renal failure -Left chest PermCath - removal 08/15 PLAN: 1. continue daptomycin 2. continue Meropenem for the ESBL Klebsiella 3. continue vancomycin 250mg po Q6H per PEG for cdiff 4. repeat blood cultures 5. abdominal xray Subjective Date of service: 08/23/16 Principal diagnosis: Polymicrobial bacteremia and sepsis; C. difficile infection Interval history: Patient remains confused, she moans and sometimes would speak Objective - Constitutional Vitals: Selected Entries 08/23/16 08/23/16 07:59 08:06 Temperature 97.2 F L Pulse Rate [ 134 H Anterior Bilateral Throughout] Pulse Rate [ 130 H Apical] Respiratory 20 Rate O2 Sat by Pulse 96 Oximetry Blood Pressure 128/79 [Right Arm] Blood Pressure 95 Mean [Right Arm ] General appearance: Present: no acute distress, well-nourished, obese - EENT Eyes: no scleral icterus, no conjunctival injection ENT: edentulous - Neck Neck: supple, normal ROM, no enlarged thyroid, no masses or JVD - Respiratory Respiratory: bilateral: CTA (anteriorly) - Breasts Breasts: deferred - Cardiovascular Rhythm: regular Heart Sounds: Present: S1 & S2 Extremities: normal temperature, abnormal Extremity abnormal: edema - Gastrointestinal General gastrointestinal: Present: soft, non-tender, normal bowel sounds Rectal Exam: deferred - Genitourinary Female genitourinary: deferred - Integumentary Integumentary: clear, warm, dry, no jaundice, no rash - Musculoskeletal Musculoskeletal: other (difficult to assess secondary to confusion) - Labs CBC & Chem 7: 08/23/16 05:42 08/23/16 05:42 Labs: Microbiology 08/19/16 16:48 Peripheral/Venous Blood Culture - Preliminary NO GROWTH AFTER 72 HOURS 08/19/16 16:48 Peripheral/Venous Blood Culture - Preliminary NO GROWTH AFTER 72 HOURS Laboratory Tests 08/23/16 08/23/16 05:42 05:42 WBC 34.2 H Plt Count 273 Creatinine 3.6 H Calcium 8.1 L
[2016-08-23] MEDS: MORPHINE IV PRN (12:58)
--- NOTE | 2016-08-23 13:32 | Progress Note ---
Assessment and Plan 1. Septic shock. - resolved - prn lactate levels. - s/p vascath replacement - wound care per WCT - On daptomycin and merem - adjust AB's per ID recs 2. Toxic metabolic encephalopathy. - Continue treating underlying causes. - ? dementia element 3. UTI. - Follow-up urine culture and continue antibiotics. 4. Diabetes mellitus, type II. - Continue Accu-Cheks and sliding scale regular insulin. 5. ESRD. Nephrology consultation pending. - Continue hemodialysis per nephrology. 6. Seizure disorder. - Continue Keppra IV. No new activity. - Seizure precautions. 9. Oropharyngeal dysphagia - s/p PEG- Enteric feeding, glycemic control. Aspiration precautions. Subjective Date of service: 08/23/16 Principal diagnosis: Polymicrobial bacteremia and sepsis; C. difficile infection Interval history: Seen and examined at bedside; 24 hour events reviewed; nursing and respiratory care staff consulted; no adverse overnight events reported to me;resting peacefully; remains on supplemental oxygen and qhs BIPAP Objective Vital Signs - 12hr 08/23/16 08/23/16 08/23/16 04:00 05:36 06:39 Temperature 98.3 F Pulse Rate 104 H Pulse Rate [ Anterior Bilateral Throughout] Pulse Rate [ Apical] Pulse Rate [ 129 H From Monitor] Respiratory 18 20 Rate Respiratory Rate [Anterior Bilateral Throughout] Blood Pressure Blood Pressure 171/67 [Right Arm] O2 Sat by Pulse 98 Oximetry 08/23/16 08/23/16 08/23/16 07:28 07:59 08:06 Temperature 97.4 F L 97.2 F L Pulse Rate Pulse Rate [ 134 H Anterior Bilateral Throughout] Pulse Rate [ 132 H 130 H Apical] Pulse Rate [ From Monitor] Respiratory 20 20 Rate Respiratory 18 Rate [Anterior Bilateral Throughout] Blood Pressure Blood Pressure 120/67 128/79 [Right Arm] O2 Sat by Pulse 97 96 Oximetry 08/23/16 08/23/16 08/23/16 10:00 12:01 12:15 Temperature 97.4 F L Pulse Rate 130 H Pulse Rate [ Anterior Bilateral Throughout] Pulse Rate [ 82 120 H Apical] Pulse Rate [ From Monitor] Respiratory 22 Rate Respiratory Rate [Anterior Bilateral Throughout] Blood Pressure Blood Pressure 131/55 [Right Arm] O2 Sat by Pulse 97 Oximetry 12/29/16 12/29/16 12/29/16 12:35 12:45 13:00 Temperature 99.0 F Pulse Rate 135 H 118 H 138 H Pulse Rate [ Anterior Bilateral Throughout] Pulse Rate [ Apical] Pulse Rate [ From Monitor] Respiratory 22 Rate Respiratory Rate [Anterior Bilateral Throughout] Blood Pressure 174/91 183/83 160/88 Blood Pressure [Right Arm] O2 Sat by Pulse Oximetry 08/23/16 13:15 Temperature Pulse Rate 140 H Pulse Rate [ Anterior Bilateral Throughout] Pulse Rate [ Apical] Pulse Rate [ From Monitor] Respiratory Rate Respiratory Rate [Anterior Bilateral Throughout] Blood Pressure 158/85 Blood Pressure [Right Arm] O2 Sat by Pulse Oximetry Constitutional: no acute distress, lethargic Eyes: non-icteric ENT: oropharynx moist Neck: supple Effort: mildly labored Ascultation: Bilateral: diminished breath sounds, rhonchi Cardiovascular: regular rate and rhythm Gastrointestinal: normoactive bowel sounds, soft, non-tender, non-distended Integumentary: normal Extremities: no cyanosis, no ischemia or petechiae, other (dressings to feet) Neurologic: non-focal exam (grossly), pupils equal and round Psychiatric: other (unable to assess) CBC and BMP: 08/27/16 06:09 08/27/16 06:09 ABG, PT/INR, D-dimer: ABG POC ABG pH 7.444 (7.35-7.45) 08/12/16 15:23 POC ABG pCO2 29.4 (35-45) L 08/12/16 15:23 POC ABG pO2 51 (80-105) L 08/12/16 15:23 POC ABG HCO3 20.2 08/12/16 15:23 POC ABG Total CO2 21 08/12/16 15:23 POC ABG O2 Sat 88 08/12/16 15:23 PT/INR, D-dimer D-Dimer 5042.20 ng/mlDDU (0-234) H 08/12/16 16:18 Abnormal lab findings: Abnormal Labs 08/11/16 08/11/16 08/12/16 19:45 23:01 02:35 WBC RBC Hgb Hct RDW Seg Neuts % (Manual) Lymphocytes % (Manual) Monocytes % (Manual) Seg Neutrophils # Man Monocytes # (Manual) Eosinophils # (Manual) D-Dimer POC ABG pCO2 POC ABG pO2 Sodium Potassium Chloride Carbon Dioxide BUN Creatinine Glucose POC Glucose 307 H Lactic Acid 3.5 H* Calcium TIBC Ferritin Lactate Dehydrogenase Vitamin B12 Crossmatch See Detail 08/12/16 08/12/16 08/12/16 05:30 05:30 11:09 WBC 38.6 H RBC 3.14 L Hgb 8.7 L Hct 28.1 L D RDW 18.3 H Seg Neuts % (Manual) Lymphocytes % (Manual) 9.0 L Monocytes % (Manual) 8.0 H Seg Neutrophils # Man 16.6 H Monocytes # (Manual) 3.1 H Eosinophils # (Manual) 1.2 H D-Dimer POC ABG pCO2 POC ABG pO2 Sodium 133 L Potassium 3.0 L Chloride 92.4 L Carbon Dioxide 21 L BUN 44 H Creatinine 2.3 H Glucose 270 H POC Glucose 247 H Lactic Acid Calcium 8.2 L TIBC Ferritin Lactate Dehydrogenase Vitamin B12 Crossmatch 08/12/16 08/12/16 08/12/16 12:16 12:16 12:16 WBC RBC Hgb Hct RDW Seg Neuts % (Manual) Lymphocytes % (Manual) Monocytes % (Manual) Seg Neutrophils # Man Monocytes # (Manual) Eosinophils # (Manual) D-Dimer POC ABG pCO2 POC ABG pO2 Sodium Potassium Chloride Carbon Dioxide BUN Creatinine Glucose POC Glucose Lactic Acid Calcium TIBC Ferritin 2000.0 H Lactate Dehydrogenase 276 H Vitamin B12 1117 H Crossmatch 08/12/16 08/12/16 08/12/16 12:16 15:23 16:18 WBC RBC Hgb Hct RDW Seg Neuts % (Manual) Lymphocytes % (Manual) Monocytes % (Manual) Seg Neutrophils # Man Monocytes # (Manual) Eosinophils # (Manual) D-Dimer 5042.20 H POC ABG pCO2 29.4 L POC ABG pO2 51 L Sodium Potassium Chloride Carbon Dioxide BUN Creatinine Glucose POC Glucose Lactic Acid Calcium TIBC 101 L Ferritin Lactate Dehydrogenase Vitamin B12 Crossmatch 08/12/16 08/12/16 08/13/16 17:45 23:36 06:58 WBC RBC Hgb Hct RDW Seg Neuts % (Manual) Lymphocytes % (Manual) Monocytes % (Manual) Seg Neutrophils # Man Monocytes # (Manual) Eosinophils # (Manual) D-Dimer POC ABG pCO2 POC ABG pO2 Sodium Potassium Chloride Carbon Dioxide BUN Creatinine Glucose POC Glucose 196 H 170 H 199 H Lactic Acid Calcium TIBC Ferritin Lactate Dehydrogenase Vitamin B12 Crossmatch 08/13/16 08/13/16 08/13/16 11:25 16:29 21:10 WBC RBC Hgb Hct RDW Seg Neuts % (Manual) Lymphocytes % (Manual) Monocytes % (Manual) Seg Neutrophils # Man Monocytes # (Manual) Eosinophils # (Manual) D-Dimer POC ABG pCO2 POC ABG pO2 Sodium Potassium Chloride Carbon Dioxide BUN Creatinine Glucose POC Glucose 267 H 277 H 203 H Lactic Acid Calcium TIBC Ferritin Lactate Dehydrogenase Vitamin B12 Crossmatch 08/13/16 08/13/16 08/14/16 Unknown Unknown 07:42 WBC 30.0 H RBC 2.75 L Hgb 7.8 L Hct 24.0 L RDW 18.4 H Seg Neuts % (Manual) 75.0 H Lymphocytes % (Manual) 7.0 L Monocytes % (Manual) Seg Neutrophils # Man 22.5 H Monocytes # (Manual) Eosinophils # (Manual) D-Dimer POC ABG pCO2 POC ABG pO2 Sodium 133 L Potassium 3.4 L Chloride 95.2 L Carbon Dioxide 18 L BUN 58 H Creatinine 2.9 H Glucose 201 H POC Glucose 306 H Lactic Acid Calcium 8.2 L TIBC Ferritin Lactate Dehydrogenase Vitamin B12 Crossmatch 08/14/16 08/14/16 08/14/16 08:26 08:26 11:19 WBC 28.9 H RBC 2.92 L Hgb 8.2 L Hct 25.9 L RDW 18.8 H Seg Neuts % (Manual) 85.5 H Lymphocytes % (Manual) 4.5 L Monocytes % (Manual) Seg Neutrophils # Man 24.7 H Monocytes # (Manual) 0.9 H Eosinophils # (Manual) D-Dimer POC ABG pCO2 POC ABG pO2 Sodium Potassium Chloride Carbon Dioxide 15 L BUN 77 H Creatinine 3.5 H Glucose 289 H POC Glucose 274 H Lactic Acid Calcium 8.3 L TIBC Ferritin Lactate Dehydrogenase Vitamin B12 Crossmatch 08/14/16 08/14/16 08/15/16 15:56 21:12 06:00 WBC 30.1 H RBC 2.67 L Hgb 7.8 L Hct 23.4 L RDW 18.4 H Seg Neuts % (Manual) 86.0 H Lymphocytes % (Manual) 4.0 L Monocytes % (Manual) Seg Neutrophils # Man 25.9 H Monocytes # (Manual) 1.8 H Eosinophils # (Manual) D-Dimer POC ABG pCO2 POC ABG pO2 Sodium Potassium Chloride Carbon Dioxide BUN Creatinine Glucose POC Glucose 284 H 357 H Lactic Acid Calcium TIBC Ferritin Lactate Dehydrogenase Vitamin B12 Crossmatch 08/15/16 08/15/16 08/15/16 06:00 11:17 16:43 WBC RBC Hgb Hct RDW Seg Neuts % (Manual) Lymphocytes % (Manual) Monocytes % (Manual) Seg Neutrophils # Man Monocytes # (Manual) Eosinophils # (Manual) D-Dimer POC ABG pCO2 POC ABG pO2 Sodium Potassium 3.5 L Chloride 96.6 L Carbon Dioxide 21 L BUN 51 H Creatinine 2.6 H Glucose 214 H POC Glucose 280 H 257 H Lactic Acid Calcium 8.3 L TIBC Ferritin Lactate Dehydrogenase Vitamin B12 Crossmatch 08/15/16 08/16/16 08/16/16 23:40 05:25 07:20 WBC RBC Hgb Hct RDW Seg Neuts % (Manual) Lymphocytes % (Manual) Monocytes % (Manual) Seg Neutrophils # Man Monocytes # (Manual) Eosinophils # (Manual) D-Dimer POC ABG pCO2 POC ABG pO2 Sodium Potassium Chloride Carbon Dioxide BUN Creatinine Glucose POC Glucose 179 H 140 H 147 H Lactic Acid Calcium TIBC Ferritin Lactate Dehydrogenase Vitamin B12 Crossmatch 08/16/16 08/16/16 08/16/16 09:20 09:20 11:28 WBC 35.1 H RBC 2.78 L Hgb 7.9 L Hct 24.7 L RDW 18.5 H Seg Neuts % (Manual) Lymphocytes % (Manual) Monocytes % (Manual) Seg Neutrophils # Man Monocytes # (Manual) Eosinophils # (Manual) D-Dimer POC ABG pCO2 POC ABG pO2 Sodium 136 L Potassium 3.5 L Chloride Carbon Dioxide 17 L BUN 62 H Creatinine 3.3 H Glucose 128 H POC Glucose 150 H Lactic Acid Calcium 7.7 L TIBC Ferritin Lactate Dehydrogenase Vitamin B12 Crossmatch 08/16/16 08/16/16 08/17/16 15:39 23:45 05:03 WBC RBC Hgb Hct RDW Seg Neuts % (Manual) Lymphocytes % (Manual) Monocytes % (Manual) Seg Neutrophils # Man Monocytes # (Manual) Eosinophils # (Manual) D-Dimer POC ABG pCO2 POC ABG pO2 Sodium Potassium Chloride Carbon Dioxide BUN Creatinine Glucose POC Glucose 106 H 156 H 287 H Lactic Acid Calcium TIBC Ferritin Lactate Dehydrogenase Vitamin B12 Crossmatch 08/17/16 08/17/16 08/17/16 08:40 08:40 12:11 WBC 37.0 H RBC 2.91 L Hgb 8.3 L Hct 25.8 L RDW 18.5 H Seg Neuts % (Manual) Lymphocytes % (Manual) Monocytes % (Manual) Seg Neutrophils # Man Monocytes # (Manual) Eosinophils # (Manual) D-Dimer POC ABG pCO2 POC ABG pO2 Sodium 136 L Potassium Chloride 96.0 L Carbon Dioxide 16 L BUN 78 H Creatinine 4.0 H Glucose 330 H POC Glucose 345 H Lactic Acid Calcium 8.3 L TIBC Ferritin Lactate Dehydrogenase Vitamin B12 Crossmatch 08/17/16 08/17/16 08/17/16 15:34 17:40 20:07 WBC RBC Hgb Hct RDW Seg Neuts % (Manual) Lymphocytes % (Manual) Monocytes % (Manual) Seg Neutrophils # Man Monocytes # (Manual) Eosinophils # (Manual) D-Dimer POC ABG pCO2 POC ABG pO2 Sodium Potassium Chloride Carbon Dioxide BUN Creatinine Glucose POC Glucose < 40 L 403 H 439 H Lactic Acid Calcium TIBC Ferritin Lactate Dehydrogenase Vitamin B12 Crossmatch 08/18/16 08/18/16 08/18/16 00:16 05:03 12:34 WBC RBC Hgb Hct RDW Seg Neuts % (Manual) Lymphocytes % (Manual) Monocytes % (Manual) Seg Neutrophils # Man Monocytes # (Manual) Eosinophils # (Manual) D-Dimer POC ABG pCO2 POC ABG pO2 Sodium Potassium Chloride Carbon Dioxide BUN Creatinine Glucose POC Glucose 457 H 388 H 313 H Lactic Acid Calcium TIBC Ferritin Lactate Dehydrogenase Vitamin B12 Crossmatch 08/18/16 08/18/16 08/19/16 13:16 17:50 02:14 WBC RBC Hgb Hct RDW Seg Neuts % (Manual) Lymphocytes % (Manual) Monocytes % (Manual) Seg Neutrophils # Man Monocytes # (Manual) Eosinophils # (Manual) D-Dimer POC ABG pCO2 POC ABG pO2 Sodium Potassium Chloride Carbon Dioxide 15 L BUN 100 H Creatinine 4.5 H Glucose 286 H POC Glucose 195 H 118 H Lactic Acid Calcium 8.3 L TIBC Ferritin Lactate Dehydrogenase Vitamin B12 Crossmatch 08/19/16 08/19/16 08/19/16 12:23 12:23 17:35 WBC 30.9 H RBC 3.45 L Hgb 9.7 L Hct RDW 18.6 H Seg Neuts % (Manual) 89.5 H Lymphocytes % (Manual) 6.0 L Monocytes % (Manual) Seg Neutrophils # Man 27.7 H Monocytes # (Manual) Eosinophils # (Manual) D-Dimer POC ABG pCO2 POC ABG pO2 Sodium Potassium Chloride Carbon Dioxide 16 L BUN 116 H Creatinine 5.0 H Glucose 102 H POC Glucose 181 H Lactic Acid Calcium TIBC Ferritin Lactate Dehydrogenase Vitamin B12 Crossmatch 08/19/16 08/20/16 08/20/16 23:56 06:03 06:31 WBC RBC Hgb Hct RDW Seg Neuts % (Manual) Lymphocytes % (Manual) Monocytes % (Manual) Seg Neutrophils # Man Monocytes # (Manual) Eosinophils # (Manual) D-Dimer POC ABG pCO2 POC ABG pO2 Sodium Potassium Chloride Carbon Dioxide BUN Creatinine Glucose POC Glucose 239 H 278 H 286 H Lactic Acid Calcium TIBC Ferritin Lactate Dehydrogenase Vitamin B12 Crossmatch 08/20/16 08/20/16 08/20/16 07:55 07:55 12:53 WBC 28.6 H RBC 3.45 L Hgb 9.7 L Hct RDW 18.7 H Seg Neuts % (Manual) 93.0 H Lymphocytes % (Manual) 5.5 L Monocytes % (Manual) Seg Neutrophils # Man 26.6 H Monocytes # (Manual) Eosinophils # (Manual) D-Dimer POC ABG pCO2 POC ABG pO2 Sodium Potassium Chloride Carbon Dioxide 15 L BUN 134 H Creatinine 5.1 H Glucose 284 H POC Glucose 242 H Lactic Acid Calcium 8.1 L TIBC Ferritin Lactate Dehydrogenase Vitamin B12 Crossmatch 08/21/16 08/21/16 08/21/16 00:32 04:00 11:55 WBC RBC Hgb Hct RDW Seg Neuts % (Manual) Lymphocytes % (Manual) Monocytes % (Manual) Seg Neutrophils # Man Monocytes # (Manual) Eosinophils # (Manual) D-Dimer POC ABG pCO2 POC ABG pO2 Sodium Potassium Chloride 96.2 L Carbon Dioxide 18 L BUN 95 H Creatinine 3.6 H Glucose 208 H POC Glucose 210 H 316 H Lactic Acid Calcium 8.0 L TIBC Ferritin Lactate Dehydrogenase Vitamin B12 Crossmatch 08/21/16 08/21/16 08/22/16 21:20 Unknown 00:51 WBC 34.9 H RBC 3.56 L Hgb 10.0 L Hct RDW 18.2 H Seg Neuts % (Manual) 94.0 H Lymphocytes % (Manual) 4.0 L Monocytes % (Manual) Seg Neutrophils # Man 32.8 H Monocytes # (Manual) Eosinophils # (Manual) D-Dimer POC ABG pCO2 POC ABG pO2 Sodium Potassium Chloride Carbon Dioxide BUN Creatinine Glucose POC Glucose 156 H 208 H Lactic Acid Calcium TIBC Ferritin Lactate Dehydrogenase Vitamin B12 Crossmatch 08/22/16 08/22/16 08/22/16 05:16 07:05 07:05 WBC 29.9 H RBC 2.98 L Hgb 8.7 L Hct 26.7 L RDW 18.3 H Seg Neuts % (Manual) 73.0 H Lymphocytes % (Manual) Monocytes % (Manual) 10.0 H Seg Neutrophils # Man 21.8 H Monocytes # (Manual) 3.0 H Eosinophils # (Manual) D-Dimer POC ABG pCO2 POC ABG pO2 Sodium Potassium 3.2 L D Chloride Carbon Dioxide BUN 60 H Creatinine 3.1 H Glucose 213 H POC Glucose 218 H Lactic Acid Calcium 7.6 L TIBC Ferritin Lactate Dehydrogenase Vitamin B12 Crossmatch 08/22/16 08/22/16 08/22/16 12:23 18:15 23:57 WBC RBC Hgb Hct RDW Seg Neuts % (Manual) Lymphocytes % (Manual) Monocytes % (Manual) Seg Neutrophils # Man Monocytes # (Manual) Eosinophils # (Manual) D-Dimer POC ABG pCO2 POC ABG pO2 Sodium Potassium Chloride Carbon Dioxide BUN Creatinine Glucose POC Glucose 165 H 64 L 55 L Lactic Acid Calcium TIBC Ferritin Lactate Dehydrogenase Vitamin B12 Crossmatch 08/23/16 08/23/16 05:42 05:42 WBC 34.2 H RBC 3.11 L Hgb 8.9 L Hct 27.8 L RDW 18.4 H Seg Neuts % (Manual) 84.0 H Lymphocytes % (Manual) 11.0 L Monocytes % (Manual) Seg Neutrophils # Man 28.7 H Monocytes # (Manual) 1.0 H Eosinophils # (Manual) D-Dimer POC ABG pCO2 POC ABG pO2 Sodium Potassium 3.2 L Chloride Carbon Dioxide BUN 70 H Creatinine 3.6 H Glucose 45 L POC Glucose Lactic Acid Calcium 8.1 L TIBC Ferritin Lactate Dehydrogenase Vitamin B12 Crossmatch Allied health notes reviewed: nursing
[2016-08-23] MEDS: HEPARIN IV PRN (14:42)
[2016-08-23] MEDS: PROCRIT IV PRN (14:43)
[2016-08-23] MEDS: NACL 0.9% IV SCH (15:48)
[2016-08-23] MEDS: CUBICIN IV SCH (15:48)
--- NOTE | 2016-08-23 23:06 | Progress Note ---
Assessment and Plan Impression: * ESRD * Catheter related bacteremia, Enterococcus faecium, Klebsiella pneumoniae --Blood cx (08/16) - Enterococcus; Blood cx 08/19, 08/23 NGTD * C diff colitis * Sacral decubitus ulcer * Type II DM * Hypertension * Anemia in ESRD * Metabolic acidosis secondary to uremia Plan: * Hemodialysis today * UF as tolerated * Abx per ID - Meropenem/Daptomycin/PO Vanco * Strict I/O * Dose medications for renal function Subjective Date of service: 08/23/16 Principal diagnosis: Polymicrobial bacteremia and sepsis; C. difficile infection Objective - Vital Signs Vital signs: Vital Signs - 12hr 08/23/16 08/23/16 08/23/16 12:01 12:15 12:35 Temperature 97.4 F L 99.0 F Pulse Rate 135 H Pulse Rate [ Anterior Bilateral Throughout] Pulse Rate [ 82 120 H Apical] Respiratory 22 22 Rate Respiratory Rate [Anterior Bilateral Throughout] Blood Pressure 174/91 Blood Pressure 131/55 [Right Arm] O2 Sat by Pulse 97 Oximetry 08/23/16 08/23/16 08/23/16 12:45 13:00 13:15 Temperature Pulse Rate 118 H 138 H 140 H Pulse Rate [ Anterior Bilateral Throughout] Pulse Rate [ Apical] Respiratory Rate Respiratory Rate [Anterior Bilateral Throughout] Blood Pressure 183/83 160/88 158/85 Blood Pressure [Right Arm] O2 Sat by Pulse Oximetry 08/23/16 08/23/16 08/23/16 13:30 13:45 14:00 Temperature Pulse Rate 138 H 141 H 126 H Pulse Rate [ Anterior Bilateral Throughout] Pulse Rate [ Apical] Respiratory Rate Respiratory Rate [Anterior Bilateral Throughout] Blood Pressure 140/68 143/82 163/79 Blood Pressure [Right Arm] O2 Sat by Pulse Oximetry 08/23/16 08/23/16 08/23/16 14:15 15:44 20:06 Temperature 97.1 F L 96.7 F L 98.2 F Pulse Rate 126 H Pulse Rate [ Anterior Bilateral Throughout] Pulse Rate [ 76 122 H Apical] Respiratory 22 22 18 Rate Respiratory Rate [Anterior Bilateral Throughout] Blood Pressure 154/81 Blood Pressure 129/58 148/78 [Right Arm] O2 Sat by Pulse 96 100 Oximetry 08/23/16 20:35 Temperature Pulse Rate Pulse Rate [ 122 H Anterior Bilateral Throughout] Pulse Rate [ Apical] Respiratory Rate Respiratory 20 Rate [Anterior Bilateral Throughout] Blood Pressure Blood Pressure [Right Arm] O2 Sat by Pulse Oximetry - General Appearance General appearance: well-developed EENT: ATNC Respiratory: Present: Decreased Breath Sounds Cardiology: tachycardia Gastrointestinal: normal, no tenderness, no distended Integumentary: no rash Musculoskeletal: other (no edema) Psychiatric: cooperative - Lab 08/23/16 05:42 08/23/16 05:42 Most recent lab results Calcium 8.1 mg/dL (8.4-10.2) L 08/23/16 05:42 Magnesium 2.2 mg/dL (1.7-2.3) 08/11/16 15:28
[2016-08-23] MEDS ORDERED: NACL 0.9% 500 ML 500 ML IV SCH (23:45)
[2016-08-24] MEDS: NOVOLOG SUB-Q SCH (01:21)
[2016-08-24] MEDS: VANCOMYCIN PO SCH ×4 (01:21→17:52)
[2016-08-24 06:22] LABS: Hematocrit 25.2 % (30.3-42.9); Hemoglobin 7.9 gm/dl (10.1-14.3); Mean Corpuscular HGB Conc 31 % (30-34); Mean Corpuscular Hemoglobin 28 pg (28-32); Mean Corpuscular Volume 90 fl (79-97); Platelet Count 259 K/mm3 (140-440); Red Blood Count 2.79 M/mm3 (3.65-5.03); Red Cell Distribution Width 18.4 % (13.2-15.2)
[2016-08-24 06:41] LABS: BUN/Creatinine Ratio 20.64; Calcium 8.2 mg/dL (8.4-10.2); Chloride 98.3 mmol/L (98-107); Potassium 3.3 mmol/L (3.6-5.0)
--- NOTE | 2016-08-24 07:51 | XRay Report ---
ABDOMEN TWO VIEWS: History: Abdominal distention, C. difficile. There is no evidence of free air beneath the diaphragms. The gas pattern within the abdomen is unremarkable. There is no evidence of bowel dilatation, significant air-fluid levels, or masses. The psoas margins are adequately visualized. Right femoral catheter terminates at the level of S1. IMPRESSION: Unremarkable abdomen.
[2016-08-24] MEDS: DUONEB 0.5 MG-3 MG/3 ML SOLN IH SCH ×3 (08:08→20:11)
[2016-08-24 08:43] LABS: Anisocytosis 2+; Basophils % (Manual) 0 % (0.0-1.8); Blastocytes % (Manual) 0 %; Eosinophils % (Manual) 1.5 % (0.0-4.3); Microcytosis 1+; Stomatocytes 1+
[2016-08-24 08:44] LABS: Diff Status Complete; Poikilocytosis 1+; Polychromasia Few; Spherocytes Rare
--- NOTE | 2016-08-24 08:55 | Progress Note ---
Assessment and Plan Impression: * ESRD * Sepsis * Gram neg Bacteremia * Sacral decubiti * DM type 2 * HTN * Anemia in ESRD Plan: * abx per ID * 08/19 cultures no growth * renal diet * strict i/os * avoid nephrotoxins * daily lytes * dailysis tthsaat Subjective Date of service: 08/24/16 Principal diagnosis: Polymicrobial bacteremia and sepsis; C. difficile infection Interval history: resting well in bed today Objective - Exam Narrative Exam: General appearance: Present: no acute distress - EENT Eyes: Present: PERRL, EOM intact ENT: hearing intact, clear oral mucosa, dentition normal - Neck Neck: Present: supple, normal ROM - Respiratory Respiratory effort: normal Respiratory: bilateral: CTA - Cardiovascular Rhythm: regular Heart Sounds: Present: S1 & S2. Absent: gallop, rub - Extremities Extremities: no ischemia, No edema, Full ROM - Abdominal General gastrointestinal: soft, non-tender, non-distended, normal bowel sounds - Integumentary Integumentary: Present: clear, warm, dry - Neurologic Neurologic: CNII-XII intact, moves all extremities, other (confused) - Vital Signs Vital signs: Vital Signs - 12hr 08/23/16 08/24/16 08/24/16 22:00 00:16 04:54 Temperature 97.6 F 98.6 F Pulse Rate 126 H Pulse Rate [ Anterior Bilateral Throughout] Pulse Rate [ 110 H 122 H Apical] Respiratory 20 18 Rate Respiratory Rate [Anterior Bilateral Throughout] Blood Pressure 121/64 114/68 [Right Arm] O2 Sat by Pulse 94 94 Oximetry 08/24/16 08:08 Temperature Pulse Rate Pulse Rate [ 117 H Anterior Bilateral Throughout] Pulse Rate [ Apical] Respiratory Rate Respiratory 20 Rate [Anterior Bilateral Throughout] Blood Pressure [Right Arm] O2 Sat by Pulse Oximetry - Lab 08/24/16 05:49 08/24/16 05:49 Most recent lab results Calcium 8.2 mg/dL (8.4-10.2) L 08/24/16 05:49 Magnesium 2.2 mg/dL (1.7-2.3) 08/11/16 15:28
--- NOTE | 2016-08-24 11:19 | Progress Note ---
Assessment and Plan Assessment and plan: 1. Polymicrobial sepsis ID input appreciated, vas cath was removed, continue antibiotics echo shows ef 45% and impaired relaxation, no thrombus or vegetation seen, repeat cultures will need continue iv abx upon dc 2. C. difficile Continue PO vanco 3. End-stage renal disease HD per renal 4. Sacral decubitus- Continue wound care 5. Diabetes Optimize insulins PT eval, will need SNF placement History Interval history: Her nurse notes that she's been confused and talking to herself, she been confused and not obeying commands. No fevers overnight. He has not been agitated, the patient herself does not voice any complaints. Hospitalist Physical - Physical exam Narrative exam: General: Patient appears well in no distress HEENT: MMM, EOMI cardiac: S1-S2 heard lungs: clear to auscultation, abdomen: soft, nontender, nondistended bowel sounds positive extremities: no edema clubbing or cyanosis Skin: no rash or lesion Neuro: Right hemiparesis Psych: Confused, disoriented - Constitutional Vitals: Temp Pulse Resp BP Pulse Ox 98.7 F 121 H 22 130/62 100 08/24/16 08:57 08/24/16 08:57 08/24/16 08:57 08/24/16 08:57 08/24/16 08:57 General appearance: Present: no acute distress, well-nourished, obese Results - Labs CBC & Chem 7: 08/24/16 05:49 08/24/16 05:49 Labs: Laboratory Last Values WBC 27.0 K/mm3 (4.5-11.0) H 08/24/16 05:49 RBC 2.79 M/mm3 (3.65-5.03) L 08/24/16 05:49 Hgb 7.9 gm/dl (10.1-14.3) L 08/24/16 05:49 Hct 25.2 % (30.3-42.9) L 08/24/16 05:49 MCV 90 fl (79-97) 08/24/16 05:49 MCH 28 pg (28-32) 08/24/16 05:49 MCHC 31 % (30-34) 08/24/16 05:49 RDW 18.4 % (13.2-15.2) H 08/24/16 05:49 Plt Count 259 K/mm3 (140-440) 08/24/16 05:49 Add Manual Diff Complete 08/24/16 05:49 Total Counted 200 08/24/16 05:49 Seg Neutrophils % Laborer Cement Gun Placing 08/21/16 Unknown Seg Neuts % (Manual) 84.0 % (40.0-70.0) H 08/24/16 05:49 Band Neutrophils % 0.5 % 08/24/16 05:49 Lymphocytes % (Manual) 7.5 % (13.4-35.0) L 08/24/16 05:49 Reactive Lymphs % (Man) 0 % 08/24/16 05:49 Monocytes % (Manual) 6.5 % (0.0-7.3) 08/24/16 05:49 Eosinophils % (Manual) 1.5 % (0.0-4.3) 08/24/16 05:49 Basophils % (Manual) 0 % (0.0-1.8) 08/24/16 05:49 Metamyelocytes % 0 % 08/24/16 05:49 Myelocytes % 0 % 08/24/16 05:49 Promyelocytes % 0 % 08/24/16 05:49 Blast Cells % 0 % 08/24/16 05:49 Nucleated RBC % Not Reportable 08/24/16 05:49 Seg Neutrophils # Man 22.7 K/mm3 (1.8-7.7) H 08/24/16 05:49 Band Neutrophils # 0.1 K/mm3 08/24/16 05:49 Lymphocytes # (Manual) 2.0 K/mm3 (1.2-5.4) 08/24/16 05:49 Abs React Lymphs (Man) 0.0 K/mm3 08/24/16 05:49 Monocytes # (Manual) 1.8 K/mm3 (0.0-0.8) H 08/24/16 05:49 Eosinophils # (Manual) 0.4 K/mm3 (0.0-0.4) 08/24/16 05:49 Basophils # (Manual) 0.0 K/mm3 (0.0-0.1) 08/24/16 05:49 Metamyelocytes # 0.0 K/mm3 08/24/16 05:49 Myelocytes # 0.0 K/mm3 08/24/16 05:49 Promyelocytes # 0.0 K/mm3 08/24/16 05:49 Blast Cells # 0.0 K/mm3 08/24/16 05:49 Pathologist Review 08/19/16 12:23 WBC Morphology Not Reportable 08/24/16 05:49 Hypersegmented Neuts Not Reportable 08/24/16 05:49 Hyposegmented Neuts Not Reportable 08/24/16 05:49 Hypogranular Neuts Not Reportable 08/24/16 05:49 Smudge Cells Not Reportable 08/24/16 05:49 Toxic Granulation Not Reportable 08/24/16 05:49 Toxic Vacuolation Not Reportable 08/24/16 05:49 Dohle Bodies Not Reportable 08/24/16 05:49 Pelger-Huet Anomaly Not Reportable 08/24/16 05:49 Quynh Rods Not Reportable 08/24/16 05:49 Platelet Estimate Appears normal 08/24/16 05:49 Clumped Platelets Not Reportable 08/24/16 05:49 Plt Clumps, EDTA Not Reportable 08/24/16 05:49 Large Platelets Not Reportable 08/24/16 05:49 Giant Platelets Not Reportable 08/24/16 05:49 Platelet Satelliting Not Reportable 08/24/16 05:49 Plt Morphology Comment Not Reportable 08/24/16 05:49 RBC Morphology Not Reportable 08/24/16 05:49 Dimorphic RBCs Not Reportable 08/24/16 05:49 Polychromasia Few 08/24/16 05:49 Hypochromasia Not Reportable 08/24/16 05:49 Poikilocytosis 1+ 08/24/16 05:49 Anisocytosis 2+ 08/24/16 05:49 Microcytosis 1+ 08/24/16 05:49 Macrocytosis Not Reportable 08/24/16 05:49 Spherocytes Rare 08/24/16 05:49 Pappenheimer Bodies Not Reportable 08/24/16 05:49 Sickle Cells Not Reportable 08/24/16 05:49 Target Cells Not Reportable 08/24/16 05:49 Tear Drop Cells Not Reportable 08/24/16 05:49 Ovalocytes Not Reportable 08/24/16 05:49 Stomatocytes 1+ 08/24/16 05:49 Helmet Cells Not Reportable 08/24/16 05:49 [place] Bodies Not Reportable 08/24/16 05:49 [place] Rings Not Reportable 08/24/16 05:49 David Cells Not Reportable 08/24/16 05:49 Bite Cells Not Reportable 08/24/16 05:49 Crenated Cell Not Reportable 08/24/16 05:49 Elliptocytes Not Reportable 08/24/16 05:49 Acanthocytes (Spur) Not Reportable 08/24/16 05:49 Rouleaux Not Reportable 08/24/16 05:49 Hemoglobin C Crystals Not Reportable 08/24/16 05:49 Schistocytes Not Reportable 08/24/16 05:49 Malaria parasites Not Reportable 08/24/16 05:49 Percent Retic 2.01 % (0.78-2.58) 08/12/16 12:16 Vinny Bodies Not Reportable 08/24/16 05:49 Hem Pathologist Commnt No 08/24/16 05:49 D-Dimer 5042.20 ng/mlDDU (0-234) H 08/12/16 16:18 POC ABG pH 7.444 (7.35-7.45) 08/12/16 15:23 POC ABG pCO2 29.4 (35-45) L 08/12/16 15:23 POC ABG pO2 51 (80-105) L 08/12/16 15:23 POC ABG HCO3 20.2 08/12/16 15:23 POC ABG Total CO2 21 08/12/16 15:23 POC ABG O2 Sat 88 08/12/16 15:23 POC ABG Base Excess -4 08/12/16 15:23 FiO2 2 % 08/12/16 15:23 Sodium 143 mmol/L (137-145) 08/24/16 05:49 Potassium 3.3 mmol/L (3.6-5.0) L 08/24/16 05:49 Chloride 98.3 mmol/L (98-107) 08/24/16 05:49 Carbon Dioxide 24 mmol/L (22-30) 08/24/16 05:49 Anion Gap 24 mmol/L 08/24/16 05:49 BUN 64 mg/dL (7-17) H 08/24/16 05:49 Creatinine 3.1 mg/dL (0.7-1.2) H 08/24/16 05:49 Estimated GFR 18 ml/min 08/24/16 05:49 BUN/Creatinine Ratio 20.64 % 08/24/16 05:49 Glucose 183 mg/dL (65-100) H 08/24/16 05:49 POC Glucose 172 (70-105) H 08/23/16 23:46 Lactic Acid 2.0 mmol/L (0.7-2.0) 08/12/16 05:30 Calcium 8.2 mg/dL (8.4-10.2) L 08/24/16 05:49 Magnesium 2.2 mg/dL (1.7-2.3) 08/11/16 15:28 Iron 62 ug/dL (37-170) 08/12/16 12:16 TIBC 101 mcg/dL (250-450) L 08/12/16 12:16 Ferritin 2000.0 ng/mL (13.0-400.0) H 08/12/16 12:16 Total Bilirubin 1.0 mg/dL (0.1-1.2) 08/11/16 15:28 AST 258 units/L (5-40) H 08/11/16 15:28 ALT 201 units/L (7-56) H 08/11/16 15:28 Alkaline Phosphatase 458 units/L (35-129) H 08/11/16 15:28 Ammonia 49.0 umol/L (25-60) 08/15/16 06:00 Lactate Dehydrogenase 276 units/L (91-180) H 08/12/16 12:16 C-Reactive Protein 37.70 mg/dL (0.00-1.30) H 08/11/16 15:28 Total Protein 7.1 g/dL (6.3-8.2) 08/11/16 15:28 Albumin 2.3 g/dL (3.9-5) L 08/11/16 15:28 Albumin/Globulin Ratio 0.5 % 08/11/16 15:28 Vitamin B12 1117 pg/mL (211-911) H 08/12/16 12:16 Folate 18.10 ng/mL (7.3-26.0) 08/12/16 12:16 TSH 1.360 mlU/mL (0.270-4.200) 08/11/16 15:28 Urine Color [place] (Yellow) 08/11/16 15:17 Urine Turbidity Turbid (Clear) 08/11/16 15:17 Urine pH 5.0 (5.0-7.0) 08/11/16 15:17 Ur Specific [place] 1.022 (1.003-1.030) 08/11/16 15:17 Urine Protein >500 mg/dL (Negative) 08/11/16 15:17 Urine Glucose (UA) Neg mg/dL (Negative) 08/11/16 15:17 Urine Ketones Tr mg/dL (Negative) 08/11/16 15:17 Urine Blood Sm (Negative) 08/11/16 15:17 Urine Nitrite Neg (Negative) 08/11/16 15:17 Ur Reducing Substances Not Reportable 08/11/16 15:17 Urine Bilirubin Neg (Negative) 08/11/16 15:17 Urine Ictotest Not Reportable 08/11/16 15:17 Urine Urobilinogen < 2.0 mg/dL (<2.0) 08/11/16 15:17 Ur Leukocyte Esterase Mod (Negative) 08/11/16 15:17 Urine WBC (Auto) > 182.0 /HPF (0.0-6.0) H 08/11/16 15:17 Urine RBC (Auto) 48.0 /HPF (0.0-6.0) 08/11/16 15:17 U Epithel Cells (Auto) 4.0 /HPF (0-13.0) 08/11/16 15:17 Urine Bacteria (Auto) 4+ /HPF (Negative) 08/11/16 15:17 Urine HCG, Qual Negative (Negative) 08/11/16 15:17 Random Vancomycin 13.7 ug/mL (0-40.0) 08/15/16 06:00 Salicylates < 0.3 mg/dL (2.8-20.0) L 08/11/16 15:28 Urine Opiates Screen Presumptive negative 08/11/16 15:17 Urine Methadone Screen Presumptive negative 08/11/16 15:17 Acetaminophen < 15.0 ug/mL (10.0-30.0) 08/11/16 15:28 Ur Barbiturates Screen Presumptive negative 08/11/16 15:17 Ur Phencyclidine Scrn Presumptive negative 08/11/16 15:17 Ur Amphetamines Screen Presumptive negative 08/11/16 15:17 U Benzodiazepines Scrn Presumptive negative 08/11/16 15:17 Urine Cocaine Screen Presumptive negative 08/11/16 15:17 U Marijuana (THC) Screen Presumptive negative 08/11/16 15:17 Drugs of Abuse Note Disclamer 08/11/16 15:17 Plasma/Serum Alcohol < 0.01 gm% (0-0.07) 08/11/16 15:28 Blood Type B POSITIVE 08/11/16 19:45 Antibody Screen Negative 08/11/16 19:45 Crossmatch See Detail 08/11/16 19:45
[2016-08-24] MEDS: SODIUM BICARBONATE FEEDTUBE PRN (13:07)
[2016-08-24] MEDS: MERREM 1,000 MG in NACL 0.9% 100 ML IV SCH (13:07)
[2016-08-24] MEDS: PEPCID PO SCH (13:07)
[2016-08-24] MEDS: KEPPRA PO SCH ×2 (13:07→22:42)
--- NOTE | 2016-08-24 15:35 | Progress Note ---
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 Admitting blood cultures are grew VRE faecium & ESBL Klebsiella. Problem list: 1. Polymicrobial bacteremia and sepsis -08/16 blood cultures were still positive for VRE faecium -08/11 blood cultures with 4/4 bottles with ESBL Klebsiella pneumoniae and Vancomycin resistant Enterococcus faecium -Previous permacath source (removed 08/15) -08/19 blood cultures sterile 2. Left chest wall permacath infection -Status post removal 08/15 -Tip culture grew Proteus mirabilis and VRE faecium 3. C. diff. infection -Toxin assay positive 08/13 -Diarrhea improved -Now on enteral vancomycin 4. Leukocytosis -Marked elevation to 51,000 on admission -Multifactorial with bacteremia & C diff infection -Slowly trending downward. 5. Presacral pressure sore -Uninfected at present 6. End-stage renal failure -Left chest PermCath - removal 08/15 7. Status post right hemispheral stroke -Left hemiplegia 8. Lactic acidosis -Secondary to #1 -Resolved 8. Type 2 DM PLAN: 1. Continue Meropenem versus the ESBL Klebsiella blood isolate 2. Continue daptomycin versus the VRE 3. Continue enteral vancomycin vs C diff infection 4. Glycemic control as per the primary team 5. Follow-up on repeat blood cultures which were drawn on 08/23 6. Continue C. difficile & VRE isolation precautions 7. If bacteremic again may need to consider NILSON Arash Bennett MD [facility] Office: [phone] Subjective Date of service: 08/24/16 Principal diagnosis: Polymicrobial bacteremia and sepsis; C. difficile infection Interval history: No obvious complaints. No acute distress. Remains confused and somewhat agitated. ROS: not reliable. Objective - Exam Narrative Exam: GENERAL: Well-developed, chronically ill-appearing female who is alert and in no acute distress, calling out for the nurse. HEENT: Pupils are equal reactive to light and accommodation. Conjunctiva clear. Bilateral arcus senilis. Oropharynx is normal with no evidence of oral candidiasis or pharyngitis. Patient is edentulous. NECK: Supple. No enlargement of the thyroid gland. No significant cervical lymphadenopathy. No jugular venous distention at 30. LUNGS: Clear with no adventitious sounds. CHEST: Previous left vas cath site with no signs of infection. Not tender to palpation and no drainage visible. HEART: Regular rate. S1 and S2 are normal. There are no gallops, clicks or rubs heard. II/ JOSEPHINE heard best over the LUSB. No diastolic murmur. ABDOMEN: Soft and nontender. Liver and spleen are not palpably enlarged or tender. No palpable masses. Bowel sounds are normoactive. PEG site is clean with no signs of infection. : Normal external female. No Rico catheter. EXTREMITIES: No rash, peripheral lymphadenopathy, clubbing or edema. Right femoral vas cath in place with no signs of infection on exam. SKIN: Dressings noted to the feet bilat that are clean and dry. these are not removed. Previous Stage II sacral pressure sore with no signs of infection are not seen today. NEUROLOGIC: Left hemiplegia. Alert. Oriented to person only. - Constitutional Vitals: Vital Signs Temp Pulse Resp BP Pulse Ox 98.9 F 118 H 20 115/59 100 08/24/16 13:35 08/24/16 13:35 08/24/16 13:35 08/24/16 13:35 08/24/16 13:35 Temperature -Last 24 Hours Temperature 98.9 F Temperature 98.7 F Temperature 98.6 F Temperature 97.6 F Temperature 98.2 F Temperature 96.7 F - Labs CBC & Chem 7: 08/24/16 05:49 08/24/16 05:49 Labs: Abnormal lab results Microbiology 08/23/16 14:46 Peripheral/Venous Blood Culture - Preliminary Culture in Progress 08/23/16 11:18 Peripheral/Venous Blood Culture - Preliminary NO GROWTH AFTER 24 HOURS 08/19/16 16:48 Peripheral/Venous Blood Culture - Preliminary NO GROWTH AFTER 4 DAYS 08/19/16 16:48 Peripheral/Venous Blood Culture - Preliminary NO GROWTH AFTER 4 DAYS 08/16/16 10:42 Peripheral/Venous Blood Culture - 2/2 bottles with Enterococcal faecium (Vancomycin & penicillin resistant) 08/16/16 10:28 Peripheral/Venous Blood Culture - 2/2 bottles with Enterococcal faecium (Vancomycin & penicillin resistant) 08/15/16 Unknown Vascular Cath Catheter Tip Culture Proteus mirabilis (only resistant to quinolones) Vancomycin resistant Enterococcus faecium 08/12/16 11:41 Vascular Cath Blood Culture - Preliminary Klebsiella Pneumoniae (ESBL strain, quinolone resistant, carbapenem sensitive) Enterococcus faecium (Vancomycin resistant) 08/12/16 11:41 Peripheral/Venous Blood Culture - 2/2 bottles with Enterococcus faecium (Vancomycin & penicillin resistant) 08/11/16 18:31 Peripheral/Venous Blood Culture - Preliminary Klebsiella Pneumoniae Enterococcus faecium 08/11/16 18:31 Peripheral/Venous Blood Culture - Preliminary Klebsiella Pneumoniae Enterococcus faecium 08/12/16 16:55 Stool C. difficile DNA Amplification - Positive Imagin/30: Abdominal films: No free air. No evidence of megacolon.
[2016-08-24] MEDS: LEVEMIR SUB-Q SCH (16:39)
--- NOTE | 2016-08-24 16:39 | Progress Note ---
Assessment and Plan Patient awke and resting on 2 litres O2..No acute respiratory distress. O2 satuaration 100% .Patient afebrile. - Patient Problems (1) Sepsis due to Klebsiella Current Visit: Yes Status: Acute Plan to address problem: Patient is on Linozelid, merepenum and Metranidazole. Antibiotics as per infectious disease specialists. 08/24/16 Patient is presently on merepenum and vancomycin. (2) Septic shock Current Visit: Yes Status: Acute Plan to address problem: Improving. Patient is on norepinephrine. Continue present I/V Fluids NSS. Continue present antibiotics. Linozelid, merepenum and metranidazole. Continue Hydrocortizone. 08/19/16 Patient off the norepinephrine. 08/24/16 Patient off the norepinephrine Patient is on merepenum and vancomycin. (3) Clostridium difficile colitis Current Visit: Yes Status: Acute Plan to address problem: Patient is on Metranidazole. Management as per infectious diseases. 08/24/16 Patient off the metranidazole. Management as per infectious diseases. (4) Altered mental status Current Visit: Yes Status: Acute Plan to address problem: Management as per primary care. (5) End stage renal disease Current Visit: Yes Status: Chronic Plan to address problem: Management as per nephrology. (6) Lactic acidosis Current Visit: Yes Status: Acute Plan to address problem: Bicarb is 16, patient compensated. Obtaining blood gases. 08/24/15 Improved. (7) Seizure disorder Current Visit: Yes Status: Chronic Subjective Date of service: 08/24/16 Principal diagnosis: Polymicrobial bacteremia and sepsis; C. difficile infection Interval history: Patient awke and resting on 2 litres O2..No acute respiratory distress. O2 satuaration 100% .Patient afebrile. Objective Vital Signs - 12hr 08/24/16 08/24/16 08/24/16 04:54 08:08 08:17 Temperature 98.6 F Pulse Rate [ 117 H 120 H Anterior Bilateral Throughout] Pulse Rate [ 122 H Apical] Pulse Rate [ Left Radial] Respiratory 18 Rate Respiratory 20 17 Rate [Anterior Bilateral Throughout] Blood Pressure [Left Arm] Blood Pressure 114/68 [Right Arm] O2 Sat by Pulse 94 Oximetry 08/24/16 08/24/16 08/24/16 08:57 10:00 13:26 Temperature 98.7 F Pulse Rate [ 119 H Anterior Bilateral Throughout] Pulse Rate [ Apical] Pulse Rate [ 121 H Left Radial] Respiratory 22 Rate Respiratory 20 Rate [Anterior Bilateral Throughout] Blood Pressure 130/62 [Left Arm] Blood Pressure [Right Arm] O2 Sat by Pulse 100 99 Oximetry 08/24/16 13:35 Temperature 98.9 F Pulse Rate [ Anterior Bilateral Throughout] Pulse Rate [ Apical] Pulse Rate [ 118 H Left Radial] Respiratory 20 Rate Respiratory Rate [Anterior Bilateral Throughout] Blood Pressure 115/59 [Left Arm] Blood Pressure [Right Arm] O2 Sat by Pulse 100 Oximetry Constitutional: no acute distress, lethargic Eyes: non-icteric ENT: oropharynx moist Neck: supple Effort: mildly labored Ascultation: Bilateral: diminished breath sounds, rhonchi Cardiovascular: regular rate and rhythm Gastrointestinal: normoactive bowel sounds, soft, non-tender, non-distended Integumentary: normal Extremities: no cyanosis, no ischemia or petechiae, other (dressings to feet) Neurologic: non-focal exam (grossly), pupils equal and round Psychiatric: other (unable to assess) CBC and BMP: 08/24/16 05:49 08/24/16 05:49 ABG, PT/INR, D-dimer: ABG POC ABG pH 7.444 (7.35-7.45) 08/12/16 15:23 POC ABG pCO2 29.4 (35-45) L 08/12/16 15:23 POC ABG pO2 51 (80-105) L 08/12/16 15:23 POC ABG HCO3 20.2 08/12/16 15:23 POC ABG Total CO2 21 08/12/16 15:23 POC ABG O2 Sat 88 08/12/16 15:23 PT/INR, D-dimer D-Dimer 5042.20 ng/mlDDU (0-234) H 08/12/16 16:18 Abnormal lab findings: Abnormal Labs 08/11/16 08/11/16 08/12/16 19:45 23:01 02:35 WBC RBC Hgb Hct RDW Seg Neuts % (Manual) Lymphocytes % (Manual) Monocytes % (Manual) Seg Neutrophils # Man Monocytes # (Manual) Eosinophils # (Manual) D-Dimer POC ABG pCO2 POC ABG pO2 Sodium Potassium Chloride Carbon Dioxide BUN Creatinine Glucose POC Glucose 307 H Lactic Acid 3.5 H* Calcium TIBC Ferritin Lactate Dehydrogenase Vitamin B12 Crossmatch See Detail 08/12/16 08/12/16 08/12/16 05:30 05:30 11:09 WBC 38.6 H RBC 3.14 L Hgb 8.7 L Hct 28.1 L D RDW 18.3 H Seg Neuts % (Manual) Lymphocytes % (Manual) 9.0 L Monocytes % (Manual) 8.0 H Seg Neutrophils # Man 16.6 H Monocytes # (Manual) 3.1 H Eosinophils # (Manual) 1.2 H D-Dimer POC ABG pCO2 POC ABG pO2 Sodium 133 L Potassium 3.0 L Chloride 92.4 L Carbon Dioxide 21 L BUN 44 H Creatinine 2.3 H Glucose 270 H POC Glucose 247 H Lactic Acid Calcium 8.2 L TIBC Ferritin Lactate Dehydrogenase Vitamin B12 Crossmatch 08/12/16 08/12/16 08/12/16 12:16 12:16 12:16 WBC RBC Hgb Hct RDW Seg Neuts % (Manual) Lymphocytes % (Manual) Monocytes % (Manual) Seg Neutrophils # Man Monocytes # (Manual) Eosinophils # (Manual) D-Dimer POC ABG pCO2 POC ABG pO2 Sodium Potassium Chloride Carbon Dioxide BUN Creatinine Glucose POC Glucose Lactic Acid Calcium TIBC Ferritin 2000.0 H Lactate Dehydrogenase 276 H Vitamin B12 1117 H Crossmatch 08/12/16 08/12/16 08/12/16 12:16 15:23 16:18 WBC RBC Hgb Hct RDW Seg Neuts % (Manual) Lymphocytes % (Manual) Monocytes % (Manual) Seg Neutrophils # Man Monocytes # (Manual) Eosinophils # (Manual) D-Dimer 5042.20 H POC ABG pCO2 29.4 L POC ABG pO2 51 L Sodium Potassium Chloride Carbon Dioxide BUN Creatinine Glucose POC Glucose Lactic Acid Calcium TIBC 101 L Ferritin Lactate Dehydrogenase Vitamin B12 Crossmatch 08/12/16 08/12/16 08/13/16 17:45 23:36 06:58 WBC RBC Hgb Hct RDW Seg Neuts % (Manual) Lymphocytes % (Manual) Monocytes % (Manual) Seg Neutrophils # Man Monocytes # (Manual) Eosinophils # (Manual) D-Dimer POC ABG pCO2 POC ABG pO2 Sodium Potassium Chloride Carbon Dioxide BUN Creatinine Glucose POC Glucose 196 H 170 H 199 H Lactic Acid Calcium TIBC Ferritin Lactate Dehydrogenase Vitamin B12 Crossmatch 08/13/16 08/13/16 08/13/16 11:25 16:29 21:10 WBC RBC Hgb Hct RDW Seg Neuts % (Manual) Lymphocytes % (Manual) Monocytes % (Manual) Seg Neutrophils # Man Monocytes # (Manual) Eosinophils # (Manual) D-Dimer POC ABG pCO2 POC ABG pO2 Sodium Potassium Chloride Carbon Dioxide BUN Creatinine Glucose POC Glucose 267 H 277 H 203 H Lactic Acid Calcium TIBC Ferritin Lactate Dehydrogenase Vitamin B12 Crossmatch 08/13/16 08/13/16 08/14/16 Unknown Unknown 07:42 WBC 30.0 H RBC 2.75 L Hgb 7.8 L Hct 24.0 L RDW 18.4 H Seg Neuts % (Manual) 75.0 H Lymphocytes % (Manual) 7.0 L Monocytes % (Manual) Seg Neutrophils # Man 22.5 H Monocytes # (Manual) Eosinophils # (Manual) D-Dimer POC ABG pCO2 POC ABG pO2 Sodium 133 L Potassium 3.4 L Chloride 95.2 L Carbon Dioxide 18 L BUN 58 H Creatinine 2.9 H Glucose 201 H POC Glucose 306 H Lactic Acid Calcium 8.2 L TIBC Ferritin Lactate Dehydrogenase Vitamin B12 Crossmatch 08/14/16 08/14/16 08/14/16 08:26 08:26 11:19 WBC 28.9 H RBC 2.92 L Hgb 8.2 L Hct 25.9 L RDW 18.8 H Seg Neuts % (Manual) 85.5 H Lymphocytes % (Manual) 4.5 L Monocytes % (Manual) Seg Neutrophils # Man 24.7 H Monocytes # (Manual) 0.9 H Eosinophils # (Manual) D-Dimer POC ABG pCO2 POC ABG pO2 Sodium Potassium Chloride Carbon Dioxide 15 L BUN 77 H Creatinine 3.5 H Glucose 289 H POC Glucose 274 H Lactic Acid Calcium 8.3 L TIBC Ferritin Lactate Dehydrogenase Vitamin B12 Crossmatch 08/14/16 08/14/16 08/15/16 15:56 21:12 06:00 WBC 30.1 H RBC 2.67 L Hgb 7.8 L Hct 23.4 L RDW 18.4 H Seg Neuts % (Manual) 86.0 H Lymphocytes % (Manual) 4.0 L Monocytes % (Manual) Seg Neutrophils # Man 25.9 H Monocytes # (Manual) 1.8 H Eosinophils # (Manual) D-Dimer POC ABG pCO2 POC ABG pO2 Sodium Potassium Chloride Carbon Dioxide BUN Creatinine Glucose POC Glucose 284 H 357 H Lactic Acid Calcium TIBC Ferritin Lactate Dehydrogenase Vitamin B12 Crossmatch 08/15/16 08/15/16 08/15/16 06:00 11:17 16:43 WBC RBC Hgb Hct RDW Seg Neuts % (Manual) Lymphocytes % (Manual) Monocytes % (Manual) Seg Neutrophils # Man Monocytes # (Manual) Eosinophils # (Manual) D-Dimer POC ABG pCO2 POC ABG pO2 Sodium Potassium 3.5 L Chloride 96.6 L Carbon Dioxide 21 L BUN 51 H Creatinine 2.6 H Glucose 214 H POC Glucose 280 H 257 H Lactic Acid Calcium 8.3 L TIBC Ferritin Lactate Dehydrogenase Vitamin B12 Crossmatch 08/15/16 08/16/16 08/16/16 23:40 05:25 07:20 WBC RBC Hgb Hct RDW Seg Neuts % (Manual) Lymphocytes % (Manual) Monocytes % (Manual) Seg Neutrophils # Man Monocytes # (Manual) Eosinophils # (Manual) D-Dimer POC ABG pCO2 POC ABG pO2 Sodium Potassium Chloride Carbon Dioxide BUN Creatinine Glucose POC Glucose 179 H 140 H 147 H Lactic Acid Calcium TIBC Ferritin Lactate Dehydrogenase Vitamin B12 Crossmatch 08/16/16 08/16/16 08/16/16 09:20 09:20 11:28 WBC 35.1 H RBC 2.78 L Hgb 7.9 L Hct 24.7 L RDW 18.5 H Seg Neuts % (Manual) Lymphocytes % (Manual) Monocytes % (Manual) Seg Neutrophils # Man Monocytes # (Manual) Eosinophils # (Manual) D-Dimer POC ABG pCO2 POC ABG pO2 Sodium 136 L Potassium 3.5 L Chloride Carbon Dioxide 17 L BUN 62 H Creatinine 3.3 H Glucose 128 H POC Glucose 150 H Lactic Acid Calcium 7.7 L TIBC Ferritin Lactate Dehydrogenase Vitamin B12 Crossmatch 08/16/16 08/16/16 08/17/16 15:39 23:45 05:03 WBC RBC Hgb Hct RDW Seg Neuts % (Manual) Lymphocytes % (Manual) Monocytes % (Manual) Seg Neutrophils # Man Monocytes # (Manual) Eosinophils # (Manual) D-Dimer POC ABG pCO2 POC ABG pO2 Sodium Potassium Chloride Carbon Dioxide BUN Creatinine Glucose POC Glucose 106 H 156 H 287 H Lactic Acid Calcium TIBC Ferritin Lactate Dehydrogenase Vitamin B12 Crossmatch 08/17/16 08/17/16 08/17/16 08:40 08:40 12:11 WBC 37.0 H RBC 2.91 L Hgb 8.3 L Hct 25.8 L RDW 18.5 H Seg Neuts % (Manual) Lymphocytes % (Manual) Monocytes % (Manual) Seg Neutrophils # Man Monocytes # (Manual) Eosinophils # (Manual) D-Dimer POC ABG pCO2 POC ABG pO2 Sodium 136 L Potassium Chloride 96.0 L Carbon Dioxide 16 L BUN 78 H Creatinine 4.0 H Glucose 330 H POC Glucose 345 H Lactic Acid Calcium 8.3 L TIBC Ferritin Lactate Dehydrogenase Vitamin B12 Crossmatch 08/17/16 08/17/16 08/17/16 15:34 17:40 20:07 WBC RBC Hgb Hct RDW Seg Neuts % (Manual) Lymphocytes % (Manual) Monocytes % (Manual) Seg Neutrophils # Man Monocytes # (Manual) Eosinophils # (Manual) D-Dimer POC ABG pCO2 POC ABG pO2 Sodium Potassium Chloride Carbon Dioxide BUN Creatinine Glucose POC Glucose < 40 L 403 H 439 H Lactic Acid Calcium TIBC Ferritin Lactate Dehydrogenase Vitamin B12 Crossmatch 08/18/16 08/18/16 08/18/16 00:16 05:03 12:34 WBC RBC Hgb Hct RDW Seg Neuts % (Manual) Lymphocytes % (Manual) Monocytes % (Manual) Seg Neutrophils # Man Monocytes # (Manual) Eosinophils # (Manual) D-Dimer POC ABG pCO2 POC ABG pO2 Sodium Potassium Chloride Carbon Dioxide BUN Creatinine Glucose POC Glucose 457 H 388 H 313 H Lactic Acid Calcium TIBC Ferritin Lactate Dehydrogenase Vitamin B12 Crossmatch 08/18/16 08/18/16 08/19/16 13:16 17:50 02:14 WBC RBC Hgb Hct RDW Seg Neuts % (Manual) Lymphocytes % (Manual) Monocytes % (Manual) Seg Neutrophils # Man Monocytes # (Manual) Eosinophils # (Manual) D-Dimer POC ABG pCO2 POC ABG pO2 Sodium Potassium Chloride Carbon Dioxide 15 L BUN 100 H Creatinine 4.5 H Glucose 286 H POC Glucose 195 H 118 H Lactic Acid Calcium 8.3 L TIBC Ferritin Lactate Dehydrogenase Vitamin B12 Crossmatch 08/19/16 08/19/16 08/19/16 12:23 12:23 17:35 WBC 30.9 H RBC 3.45 L Hgb 9.7 L Hct RDW 18.6 H Seg Neuts % (Manual) 89.5 H Lymphocytes % (Manual) 6.0 L Monocytes % (Manual) Seg Neutrophils # Man 27.7 H Monocytes # (Manual) Eosinophils # (Manual) D-Dimer POC ABG pCO2 POC ABG pO2 Sodium Potassium Chloride Carbon Dioxide 16 L BUN 116 H Creatinine 5.0 H Glucose 102 H POC Glucose 181 H Lactic Acid Calcium TIBC Ferritin Lactate Dehydrogenase Vitamin B12 Crossmatch 08/19/16 08/20/16 08/20/16 23:56 06:03 06:31 WBC RBC Hgb Hct RDW Seg Neuts % (Manual) Lymphocytes % (Manual) Monocytes % (Manual) Seg Neutrophils # Man Monocytes # (Manual) Eosinophils # (Manual) D-Dimer POC ABG pCO2 POC ABG pO2 Sodium Potassium Chloride Carbon Dioxide BUN Creatinine Glucose POC Glucose 239 H 278 H 286 H Lactic Acid Calcium TIBC Ferritin Lactate Dehydrogenase Vitamin B12 Crossmatch 08/20/16 08/20/16 08/20/16 07:55 07:55 12:53 WBC 28.6 H RBC 3.45 L Hgb 9.7 L Hct RDW 18.7 H Seg Neuts % (Manual) 93.0 H Lymphocytes % (Manual) 5.5 L Monocytes % (Manual) Seg Neutrophils # Man 26.6 H Monocytes # (Manual) Eosinophils # (Manual) D-Dimer POC ABG pCO2 POC ABG pO2 Sodium Potassium Chloride Carbon Dioxide 15 L BUN 134 H Creatinine 5.1 H Glucose 284 H POC Glucose 242 H Lactic Acid Calcium 8.1 L TIBC Ferritin Lactate Dehydrogenase Vitamin B12 Crossmatch 08/21/16 08/21/16 08/21/16 00:32 04:00 11:55 WBC RBC Hgb Hct RDW Seg Neuts % (Manual) Lymphocytes % (Manual) Monocytes % (Manual) Seg Neutrophils # Man Monocytes # (Manual) Eosinophils # (Manual) D-Dimer POC ABG pCO2 POC ABG pO2 Sodium Potassium Chloride 96.2 L Carbon Dioxide 18 L BUN 95 H Creatinine 3.6 H Glucose 208 H POC Glucose 210 H 316 H Lactic Acid Calcium 8.0 L TIBC Ferritin Lactate Dehydrogenase Vitamin B12 Crossmatch 08/21/16 08/21/16 08/22/16 21:20 Unknown 00:51 WBC 34.9 H RBC 3.56 L Hgb 10.0 L Hct RDW 18.2 H Seg Neuts % (Manual) 94.0 H Lymphocytes % (Manual) 4.0 L Monocytes % (Manual) Seg Neutrophils # Man 32.8 H Monocytes # (Manual) Eosinophils # (Manual) D-Dimer POC ABG pCO2 POC ABG pO2 Sodium Potassium Chloride Carbon Dioxide BUN Creatinine Glucose POC Glucose 156 H 208 H Lactic Acid Calcium TIBC Ferritin Lactate Dehydrogenase Vitamin B12 Crossmatch 08/22/16 08/22/16 08/22/16 05:16 07:05 07:05 WBC 29.9 H RBC 2.98 L Hgb 8.7 L Hct 26.7 L RDW 18.3 H Seg Neuts % (Manual) 73.0 H Lymphocytes % (Manual) Monocytes % (Manual) 10.0 H Seg Neutrophils # Man 21.8 H Monocytes # (Manual) 3.0 H Eosinophils # (Manual) D-Dimer POC ABG pCO2 POC ABG pO2 Sodium Potassium 3.2 L D Chloride Carbon Dioxide BUN 60 H Creatinine 3.1 H Glucose 213 H POC Glucose 218 H Lactic Acid Calcium 7.6 L TIBC Ferritin Lactate Dehydrogenase Vitamin B12 Crossmatch 08/22/16 08/22/16 08/22/16 12:23 18:15 23:57 WBC RBC Hgb Hct RDW Seg Neuts % (Manual) Lymphocytes % (Manual) Monocytes % (Manual) Seg Neutrophils # Man Monocytes # (Manual) Eosinophils # (Manual) D-Dimer POC ABG pCO2 POC ABG pO2 Sodium Potassium Chloride Carbon Dioxide BUN Creatinine Glucose POC Glucose 165 H 64 L 55 L Lactic Acid Calcium TIBC Ferritin Lactate Dehydrogenase Vitamin B12 Crossmatch 08/23/16 08/23/16 08/23/16 05:42 05:42 11:48 WBC 34.2 H RBC 3.11 L Hgb 8.9 L Hct 27.8 L RDW 18.4 H Seg Neuts % (Manual) 84.0 H Lymphocytes % (Manual) 11.0 L Monocytes % (Manual) Seg Neutrophils # Man 28.7 H Monocytes # (Manual) 1.0 H Eosinophils # (Manual) D-Dimer POC ABG pCO2 POC ABG pO2 Sodium Potassium 3.2 L Chloride Carbon Dioxide BUN 70 H Creatinine 3.6 H Glucose 45 L POC Glucose 179 H Lactic Acid Calcium 8.1 L TIBC Ferritin Lactate Dehydrogenase Vitamin B12 Crossmatch 08/23/16 08/23/16 08/24/16 18:50 23:46 05:49 WBC 27.0 H RBC 2.79 L Hgb 7.9 L Hct 25.2 L RDW 18.4 H Seg Neuts % (Manual) 84.0 H Lymphocytes % (Manual) 7.5 L Monocytes % (Manual) Seg Neutrophils # Man 22.7 H Monocytes # (Manual) 1.8 H Eosinophils # (Manual) D-Dimer POC ABG pCO2 POC ABG pO2 Sodium Potassium Chloride Carbon Dioxide BUN Creatinine Glucose POC Glucose 191 H 172 H Lactic Acid Calcium TIBC Ferritin Lactate Dehydrogenase Vitamin B12 Crossmatch 08/24/16 08/24/16 05:49 12:21 WBC RBC Hgb Hct RDW Seg Neuts % (Manual) Lymphocytes % (Manual) Monocytes % (Manual) Seg Neutrophils # Man Monocytes # (Manual) Eosinophils # (Manual) D-Dimer POC ABG pCO2 POC ABG pO2 Sodium Potassium 3.3 L Chloride Carbon Dioxide BUN 64 H Creatinine 3.1 H Glucose 183 H POC Glucose 239 H Lactic Acid Calcium 8.2 L TIBC Ferritin Lactate Dehydrogenase Vitamin B12 Crossmatch Allied health notes reviewed: nursing
[2016-08-24] MEDS: HEPARIN SUB-Q SCH ×2 (16:44→22:43)
[2016-08-24] MEDS: DILAUDID IV PRN (17:01)
[2016-08-24] MEDS: SODIUM BICARBONATE PO SCH ×2 (17:53→22:42)
[2016-08-25] MEDS: NOVOLOG SUB-Q SCH ×4 (01:00→17:33)
[2016-08-25] MEDS: VANCOMYCIN PO SCH ×4 (05:28→17:33)
[2016-08-25] MEDS: MORPHINE IV PRN (05:32)
[2016-08-25 08:06] LABS: Hematocrit 23.3 % (30.3-42.9); Hemoglobin 7.5 gm/dl (10.1-14.3); Mean Corpuscular HGB Conc 32 % (30-34); Mean Corpuscular Hemoglobin 29 pg (28-32); Mean Corpuscular Volume 91 fl (79-97); Platelet Count 258 K/mm3 (140-440); Red Blood Count 2.56 M/mm3 (3.65-5.03); Red Cell Distribution Width 19.1 % (13.2-15.2)
--- NOTE | 2016-08-25 08:16 | Progress Note ---
Assessment and Plan Impression: * ESRD * Sepsis * Gram neg Bacteremia * Sacral decubiti * DM type 2 * HTN * Anemia in ESRD Plan: * abx per ID * 08/19 cultures no growth * renal diet * strict i/os * avoid nephrotoxins * daily lytes * dailysis tthsaat Subjective Date of service: 08/25/16 Principal diagnosis: Polymicrobial bacteremia and sepsis; C. difficile infection Interval history: resting well in bed today Objective - Exam Narrative Exam: General appearance: Present: no acute distress - EENT Eyes: Present: PERRL, EOM intact ENT: hearing intact, clear oral mucosa, dentition normal - Neck Neck: Present: supple, normal ROM - Respiratory Respiratory effort: normal Respiratory: bilateral: CTA - Cardiovascular Rhythm: regular Heart Sounds: Present: S1 & S2. Absent: gallop, rub - Extremities Extremities: no ischemia, No edema, Full ROM - Abdominal General gastrointestinal: soft, non-tender, non-distended, normal bowel sounds - Integumentary Integumentary: Present: clear, warm, dry - Neurologic Neurologic: CNII-XII intact, moves all extremities, other (confused) - Vital Signs Vital signs: Vital Signs - 12hr 08/24/16 08/24/16 08/25/16 20:22 22:00 00:06 Temperature 97.8 F Pulse Rate 116 H Pulse Rate [ 115 H Anterior Bilateral Throughout] Pulse Rate [ 98 H Apical] Respiratory 18 Rate Respiratory 20 Rate [Anterior Bilateral Throughout] Blood Pressure 100/56 [Right Arm] O2 Sat by Pulse 100 100 Oximetry 08/25/16 05:05 Temperature 98 F Pulse Rate Pulse Rate [ Anterior Bilateral Throughout] Pulse Rate [ 73 Apical] Respiratory 18 Rate Respiratory Rate [Anterior Bilateral Throughout] Blood Pressure 100/54 [Right Arm] O2 Sat by Pulse 94 Oximetry - Lab 08/24/16 05:49 08/24/16 05:49 Most recent lab results Calcium 8.2 mg/dL (8.4-10.2) L 08/24/16 05:49 Magnesium 2.2 mg/dL (1.7-2.3) 08/11/16 15:28
[2016-08-25 08:23] LABS: White Blood Count 21.7 K/mm3 (4.5-11.0)
[2016-08-25 08:28] LABS: BUN/Creatinine Ratio 18.78; Calcium 8.1 mg/dL (8.4-10.2); Chloride 95.6 mmol/L (98-107); Potassium 3.4 mmol/L (3.6-5.0)
[2016-08-25 09:07] LABS: Basophils % (Manual) 0 % (0.0-1.8); Blastocytes % (Manual) 0 %
[2016-08-25 09:08] LABS: Anisocytosis 2+; Diff Status Complete; Polychromasia Few; Target Cells 1+
[2016-08-25] MEDS: DUONEB 0.5 MG-3 MG/3 ML SOLN IH SCH ×4 (10:00→20:12)
[2016-08-25] MEDS ORDERED: PROVENTIL IH PRN (10:14)
[2016-08-25] MEDS: MERREM 1,000 MG in NACL 0.9% 100 ML IV SCH (11:13)
[2016-08-25] MEDS: KEPPRA PO SCH (11:13)
[2016-08-25] MEDS: LEVEMIR SUB-Q SCH (11:14)
[2016-08-25] MEDS: HEPARIN SUB-Q SCH (11:18)
--- NOTE | 2016-08-25 11:18 | Progress Note ---
Assessment and Plan 1. Septic shock. - resolved - prn lactate levels. - s/p vascath replacement - wound care per WCT - de-escalate AB's per ID recs (currently on vanc, dapto) 2. Toxic metabolic encephalopathy. - Continue treating underlying causes. 3. UTI. - Follow-up urine culture and continue antibiotics per ID recs 4. Diabetes mellitus, type II. - Continue Accu-Cheks and sliding scale regular insulin. 5. ESRD. - follow electrolytes - Continue [employer] per nephrology recs 6. Seizure disorder. - Continue Keppra IV. No new activity. - Seizure precautions. 7. Oropharyngeal dysphagia - s/p PEG- Enteric feeding, glycemic control. Aspiration precautions. 8. Acute Resp Distress - continue bronchodilators and pulmonary toilet - prn supplemental oxygen Subjective Date of service: 08/25/16 Principal diagnosis: Polymicrobial bacteremia and sepsis; C. difficile infection Interval history: Seen and examined at bedside; 24 hour events reviewed; nursing and respiratory care staff consulted; no adverse overnight events reported to me; resting peacefully in bed; occasionally mumbles incoherently; denies acute chest pains or increased SOB; No N/V/F/C Objective Vital Signs - 12hr 08/25/16 08/25/16 08/25/16 00:06 05:05 08:00 Temperature 97.8 F 98 F 98.9 F Pulse Rate [ Anterior Bilateral Throughout] Pulse Rate [ 98 H 73 110 H Apical] Respiratory 18 18 18 Rate Respiratory Rate [Anterior Bilateral Throughout] Blood Pressure 100/56 100/54 112/55 [Right Arm] O2 Sat by Pulse 100 94 100 Oximetry 08/25/16 08/25/16 08/25/16 10:01 10:11 10:12 Temperature Pulse Rate [ 98 H 98 H Anterior Bilateral Throughout] Pulse Rate [ Apical] Respiratory Rate Respiratory 16 16 Rate [Anterior Bilateral Throughout] Blood Pressure [Right Arm] O2 Sat by Pulse 98 Oximetry 08/25/16 10:13 Temperature Pulse Rate [ Anterior Bilateral Throughout] Pulse Rate [ Apical] Respiratory Rate Respiratory Rate [Anterior Bilateral Throughout] Blood Pressure [Right Arm] O2 Sat by Pulse 98 Oximetry Constitutional: no acute distress, other (somnolent) Eyes: non-icteric ENT: oropharynx moist Neck: supple Effort: mildly labored Ascultation: Bilateral: diminished breath sounds, rhonchi (scant in bases) Cardiovascular: regular rate and rhythm Gastrointestinal: normoactive bowel sounds, soft, non-tender, non-distended Integumentary: normal Extremities: no cyanosis, no edema, no ischemia or petechiae, other (dressings to feet) Neurologic: non-focal exam (grossly), pupils equal and round, motor strength normal and Psychiatric: other (unable to assess) CBC and BMP: 08/25/16 08:00 08/25/16 08:00 ABG, PT/INR, D-dimer: ABG POC ABG pH 7.444 (7.35-7.45) 08/12/16 15:23 POC ABG pCO2 29.4 (35-45) L 08/12/16 15:23 POC ABG pO2 51 (80-105) L 08/12/16 15:23 POC ABG HCO3 20.2 08/12/16 15:23 POC ABG Total CO2 21 08/12/16 15:23 POC ABG O2 Sat 88 08/12/16 15:23 PT/INR, D-dimer D-Dimer 5042.20 ng/mlDDU (0-234) H 08/12/16 16:18 Abnormal lab findings: Abnormal Labs 08/11/16 08/11/16 08/12/16 19:45 23:01 02:35 WBC RBC Hgb Hct RDW Seg Neuts % (Manual) Lymphocytes % (Manual) Monocytes % (Manual) Seg Neutrophils # Man Monocytes # (Manual) Eosinophils # (Manual) D-Dimer POC ABG pCO2 POC ABG pO2 Sodium Potassium Chloride Carbon Dioxide BUN Creatinine Glucose POC Glucose 307 H Lactic Acid 3.5 H* Calcium TIBC Ferritin Lactate Dehydrogenase Vitamin B12 Crossmatch See Detail 08/12/16 08/12/16 08/12/16 05:30 05:30 11:09 WBC 38.6 H RBC 3.14 L Hgb 8.7 L Hct 28.1 L D RDW 18.3 H Seg Neuts % (Manual) Lymphocytes % (Manual) 9.0 L Monocytes % (Manual) 8.0 H Seg Neutrophils # Man 16.6 H Monocytes # (Manual) 3.1 H Eosinophils # (Manual) 1.2 H D-Dimer POC ABG pCO2 POC ABG pO2 Sodium 133 L Potassium 3.0 L Chloride 92.4 L Carbon Dioxide 21 L BUN 44 H Creatinine 2.3 H Glucose 270 H POC Glucose 247 H Lactic Acid Calcium 8.2 L TIBC Ferritin Lactate Dehydrogenase Vitamin B12 Crossmatch 08/12/16 08/12/16 08/12/16 12:16 12:16 12:16 WBC RBC Hgb Hct RDW Seg Neuts % (Manual) Lymphocytes % (Manual) Monocytes % (Manual) Seg Neutrophils # Man Monocytes # (Manual) Eosinophils # (Manual) D-Dimer POC ABG pCO2 POC ABG pO2 Sodium Potassium Chloride Carbon Dioxide BUN Creatinine Glucose POC Glucose Lactic Acid Calcium TIBC Ferritin 2000.0 H Lactate Dehydrogenase 276 H Vitamin B12 1117 H Crossmatch 08/12/16 08/12/16 08/12/16 12:16 15:23 16:18 WBC RBC Hgb Hct RDW Seg Neuts % (Manual) Lymphocytes % (Manual) Monocytes % (Manual) Seg Neutrophils # Man Monocytes # (Manual) Eosinophils # (Manual) D-Dimer 5042.20 H POC ABG pCO2 29.4 L POC ABG pO2 51 L Sodium Potassium Chloride Carbon Dioxide BUN Creatinine Glucose POC Glucose Lactic Acid Calcium TIBC 101 L Ferritin Lactate Dehydrogenase Vitamin B12 Crossmatch 08/12/16 08/12/16 08/13/16 17:45 23:36 06:58 WBC RBC Hgb Hct RDW Seg Neuts % (Manual) Lymphocytes % (Manual) Monocytes % (Manual) Seg Neutrophils # Man Monocytes # (Manual) Eosinophils # (Manual) D-Dimer POC ABG pCO2 POC ABG pO2 Sodium Potassium Chloride Carbon Dioxide BUN Creatinine Glucose POC Glucose 196 H 170 H 199 H Lactic Acid Calcium TIBC Ferritin Lactate Dehydrogenase Vitamin B12 Crossmatch 08/13/16 08/13/16 08/13/16 11:25 16:29 21:10 WBC RBC Hgb Hct RDW Seg Neuts % (Manual) Lymphocytes % (Manual) Monocytes % (Manual) Seg Neutrophils # Man Monocytes # (Manual) Eosinophils # (Manual) D-Dimer POC ABG pCO2 POC ABG pO2 Sodium Potassium Chloride Carbon Dioxide BUN Creatinine Glucose POC Glucose 267 H 277 H 203 H Lactic Acid Calcium TIBC Ferritin Lactate Dehydrogenase Vitamin B12 Crossmatch 08/13/16 08/13/16 08/14/16 Unknown Unknown 07:42 WBC 30.0 H RBC 2.75 L Hgb 7.8 L Hct 24.0 L RDW 18.4 H Seg Neuts % (Manual) 75.0 H Lymphocytes % (Manual) 7.0 L Monocytes % (Manual) Seg Neutrophils # Man 22.5 H Monocytes # (Manual) Eosinophils # (Manual) D-Dimer POC ABG pCO2 POC ABG pO2 Sodium 133 L Potassium 3.4 L Chloride 95.2 L Carbon Dioxide 18 L BUN 58 H Creatinine 2.9 H Glucose 201 H POC Glucose 306 H Lactic Acid Calcium 8.2 L TIBC Ferritin Lactate Dehydrogenase Vitamin B12 Crossmatch 08/14/16 08/14/16 08/14/16 08:26 08:26 11:19 WBC 28.9 H RBC 2.92 L Hgb 8.2 L Hct 25.9 L RDW 18.8 H Seg Neuts % (Manual) 85.5 H Lymphocytes % (Manual) 4.5 L Monocytes % (Manual) Seg Neutrophils # Man 24.7 H Monocytes # (Manual) 0.9 H Eosinophils # (Manual) D-Dimer POC ABG pCO2 POC ABG pO2 Sodium Potassium Chloride Carbon Dioxide 15 L BUN 77 H Creatinine 3.5 H Glucose 289 H POC Glucose 274 H Lactic Acid Calcium 8.3 L TIBC Ferritin Lactate Dehydrogenase Vitamin B12 Crossmatch 08/14/16 08/14/16 08/15/16 15:56 21:12 06:00 WBC 30.1 H RBC 2.67 L Hgb 7.8 L Hct 23.4 L RDW 18.4 H Seg Neuts % (Manual) 86.0 H Lymphocytes % (Manual) 4.0 L Monocytes % (Manual) Seg Neutrophils # Man 25.9 H Monocytes # (Manual) 1.8 H Eosinophils # (Manual) D-Dimer POC ABG pCO2 POC ABG pO2 Sodium Potassium Chloride Carbon Dioxide BUN Creatinine Glucose POC Glucose 284 H 357 H Lactic Acid Calcium TIBC Ferritin Lactate Dehydrogenase Vitamin B12 Crossmatch 08/15/16 08/15/16 08/15/16 06:00 11:17 16:43 WBC RBC Hgb Hct RDW Seg Neuts % (Manual) Lymphocytes % (Manual) Monocytes % (Manual) Seg Neutrophils # Man Monocytes # (Manual) Eosinophils # (Manual) D-Dimer POC ABG pCO2 POC ABG pO2 Sodium Potassium 3.5 L Chloride 96.6 L Carbon Dioxide 21 L BUN 51 H Creatinine 2.6 H Glucose 214 H POC Glucose 280 H 257 H Lactic Acid Calcium 8.3 L TIBC Ferritin Lactate Dehydrogenase Vitamin B12 Crossmatch 08/15/16 08/16/16 08/16/16 23:40 05:25 07:20 WBC RBC Hgb Hct RDW Seg Neuts % (Manual) Lymphocytes % (Manual) Monocytes % (Manual) Seg Neutrophils # Man Monocytes # (Manual) Eosinophils # (Manual) D-Dimer POC ABG pCO2 POC ABG pO2 Sodium Potassium Chloride Carbon Dioxide BUN Creatinine Glucose POC Glucose 179 H 140 H 147 H Lactic Acid Calcium TIBC Ferritin Lactate Dehydrogenase Vitamin B12 Crossmatch 08/16/16 08/16/16 08/16/16 09:20 09:20 11:28 WBC 35.1 H RBC 2.78 L Hgb 7.9 L Hct 24.7 L RDW 18.5 H Seg Neuts % (Manual) Lymphocytes % (Manual) Monocytes % (Manual) Seg Neutrophils # Man Monocytes # (Manual) Eosinophils # (Manual) D-Dimer POC ABG pCO2 POC ABG pO2 Sodium 136 L Potassium 3.5 L Chloride Carbon Dioxide 17 L BUN 62 H Creatinine 3.3 H Glucose 128 H POC Glucose 150 H Lactic Acid Calcium 7.7 L TIBC Ferritin Lactate Dehydrogenase Vitamin B12 Crossmatch 08/16/16 08/16/16 08/17/16 15:39 23:45 05:03 WBC RBC Hgb Hct RDW Seg Neuts % (Manual) Lymphocytes % (Manual) Monocytes % (Manual) Seg Neutrophils # Man Monocytes # (Manual) Eosinophils # (Manual) D-Dimer POC ABG pCO2 POC ABG pO2 Sodium Potassium Chloride Carbon Dioxide BUN Creatinine Glucose POC Glucose 106 H 156 H 287 H Lactic Acid Calcium TIBC Ferritin Lactate Dehydrogenase Vitamin B12 Crossmatch 08/17/16 08/17/16 08/17/16 08:40 08:40 12:11 WBC 37.0 H RBC 2.91 L Hgb 8.3 L Hct 25.8 L RDW 18.5 H Seg Neuts % (Manual) Lymphocytes % (Manual) Monocytes % (Manual) Seg Neutrophils # Man Monocytes # (Manual) Eosinophils # (Manual) D-Dimer POC ABG pCO2 POC ABG pO2 Sodium 136 L Potassium Chloride 96.0 L Carbon Dioxide 16 L BUN 78 H Creatinine 4.0 H Glucose 330 H POC Glucose 345 H Lactic Acid Calcium 8.3 L TIBC Ferritin Lactate Dehydrogenase Vitamin B12 Crossmatch 08/17/16 08/17/16 08/17/16 15:34 17:40 20:07 WBC RBC Hgb Hct RDW Seg Neuts % (Manual) Lymphocytes % (Manual) Monocytes % (Manual) Seg Neutrophils # Man Monocytes # (Manual) Eosinophils # (Manual) D-Dimer POC ABG pCO2 POC ABG pO2 Sodium Potassium Chloride Carbon Dioxide BUN Creatinine Glucose POC Glucose < 40 L 403 H 439 H Lactic Acid Calcium TIBC Ferritin Lactate Dehydrogenase Vitamin B12 Crossmatch 08/18/16 08/18/16 08/18/16 00:16 05:03 12:34 WBC RBC Hgb Hct RDW Seg Neuts % (Manual) Lymphocytes % (Manual) Monocytes % (Manual) Seg Neutrophils # Man Monocytes # (Manual) Eosinophils # (Manual) D-Dimer POC ABG pCO2 POC ABG pO2 Sodium Potassium Chloride Carbon Dioxide BUN Creatinine Glucose POC Glucose 457 H 388 H 313 H Lactic Acid Calcium TIBC Ferritin Lactate Dehydrogenase Vitamin B12 Crossmatch 08/18/16 08/18/16 08/19/16 13:16 17:50 02:14 WBC RBC Hgb Hct RDW Seg Neuts % (Manual) Lymphocytes % (Manual) Monocytes % (Manual) Seg Neutrophils # Man Monocytes # (Manual) Eosinophils # (Manual) D-Dimer POC ABG pCO2 POC ABG pO2 Sodium Potassium Chloride Carbon Dioxide 15 L BUN 100 H Creatinine 4.5 H Glucose 286 H POC Glucose 195 H 118 H Lactic Acid Calcium 8.3 L TIBC Ferritin Lactate Dehydrogenase Vitamin B12 Crossmatch 08/19/16 08/19/16 08/19/16 12:23 12:23 17:35 WBC 30.9 H RBC 3.45 L Hgb 9.7 L Hct RDW 18.6 H Seg Neuts % (Manual) 89.5 H Lymphocytes % (Manual) 6.0 L Monocytes % (Manual) Seg Neutrophils # Man 27.7 H Monocytes # (Manual) Eosinophils # (Manual) D-Dimer POC ABG pCO2 POC ABG pO2 Sodium Potassium Chloride Carbon Dioxide 16 L BUN 116 H Creatinine 5.0 H Glucose 102 H POC Glucose 181 H Lactic Acid Calcium TIBC Ferritin Lactate Dehydrogenase Vitamin B12 Crossmatch 08/19/16 08/20/16 08/20/16 23:56 06:03 06:31 WBC RBC Hgb Hct RDW Seg Neuts % (Manual) Lymphocytes % (Manual) Monocytes % (Manual) Seg Neutrophils # Man Monocytes # (Manual) Eosinophils # (Manual) D-Dimer POC ABG pCO2 POC ABG pO2 Sodium Potassium Chloride Carbon Dioxide BUN Creatinine Glucose POC Glucose 239 H 278 H 286 H Lactic Acid Calcium TIBC Ferritin Lactate Dehydrogenase Vitamin B12 Crossmatch 08/20/16 08/20/16 08/20/16 07:55 07:55 12:53 WBC 28.6 H RBC 3.45 L Hgb 9.7 L Hct RDW 18.7 H Seg Neuts % (Manual) 93.0 H Lymphocytes % (Manual) 5.5 L Monocytes % (Manual) Seg Neutrophils # Man 26.6 H Monocytes # (Manual) Eosinophils # (Manual) D-Dimer POC ABG pCO2 POC ABG pO2 Sodium Potassium Chloride Carbon Dioxide 15 L BUN 134 H Creatinine 5.1 H Glucose 284 H POC Glucose 242 H Lactic Acid Calcium 8.1 L TIBC Ferritin Lactate Dehydrogenase Vitamin B12 Crossmatch 08/21/16 08/21/16 08/21/16 00:32 04:00 11:55 WBC RBC Hgb Hct RDW Seg Neuts % (Manual) Lymphocytes % (Manual) Monocytes % (Manual) Seg Neutrophils # Man Monocytes # (Manual) Eosinophils # (Manual) D-Dimer POC ABG pCO2 POC ABG pO2 Sodium Potassium Chloride 96.2 L Carbon Dioxide 18 L BUN 95 H Creatinine 3.6 H Glucose 208 H POC Glucose 210 H 316 H Lactic Acid Calcium 8.0 L TIBC Ferritin Lactate Dehydrogenase Vitamin B12 Crossmatch 08/21/16 08/21/16 08/22/16 21:20 Unknown 00:51 WBC 34.9 H RBC 3.56 L Hgb 10.0 L Hct RDW 18.2 H Seg Neuts % (Manual) 94.0 H Lymphocytes % (Manual) 4.0 L Monocytes % (Manual) Seg Neutrophils # Man 32.8 H Monocytes # (Manual) Eosinophils # (Manual) D-Dimer POC ABG pCO2 POC ABG pO2 Sodium Potassium Chloride Carbon Dioxide BUN Creatinine Glucose POC Glucose 156 H 208 H Lactic Acid Calcium TIBC Ferritin Lactate Dehydrogenase Vitamin B12 Crossmatch 08/22/16 08/22/16 08/22/16 05:16 07:05 07:05 WBC 29.9 H RBC 2.98 L Hgb 8.7 L Hct 26.7 L RDW 18.3 H Seg Neuts % (Manual) 73.0 H Lymphocytes % (Manual) Monocytes % (Manual) 10.0 H Seg Neutrophils # Man 21.8 H Monocytes # (Manual) 3.0 H Eosinophils # (Manual) D-Dimer POC ABG pCO2 POC ABG pO2 Sodium Potassium 3.2 L D Chloride Carbon Dioxide BUN 60 H Creatinine 3.1 H Glucose 213 H POC Glucose 218 H Lactic Acid Calcium 7.6 L TIBC Ferritin Lactate Dehydrogenase Vitamin B12 Crossmatch 08/22/16 08/22/16 08/22/16 12:23 18:15 23:57 WBC RBC Hgb Hct RDW Seg Neuts % (Manual) Lymphocytes % (Manual) Monocytes % (Manual) Seg Neutrophils # Man Monocytes # (Manual) Eosinophils # (Manual) D-Dimer POC ABG pCO2 POC ABG pO2 Sodium Potassium Chloride Carbon Dioxide BUN Creatinine Glucose POC Glucose 165 H 64 L 55 L Lactic Acid Calcium TIBC Ferritin Lactate Dehydrogenase Vitamin B12 Crossmatch 08/23/16 08/23/16 08/23/16 05:42 05:42 11:48 WBC 34.2 H RBC 3.11 L Hgb 8.9 L Hct 27.8 L RDW 18.4 H Seg Neuts % (Manual) 84.0 H Lymphocytes % (Manual) 11.0 L Monocytes % (Manual) Seg Neutrophils # Man 28.7 H Monocytes # (Manual) 1.0 H Eosinophils # (Manual) D-Dimer POC ABG pCO2 POC ABG pO2 Sodium Potassium 3.2 L Chloride Carbon Dioxide BUN 70 H Creatinine 3.6 H Glucose 45 L POC Glucose 179 H Lactic Acid Calcium 8.1 L TIBC Ferritin Lactate Dehydrogenase Vitamin B12 Crossmatch 08/23/16 08/23/16 08/24/16 18:50 23:46 05:49 WBC 27.0 H RBC 2.79 L Hgb 7.9 L Hct 25.2 L RDW 18.4 H Seg Neuts % (Manual) 84.0 H Lymphocytes % (Manual) 7.5 L Monocytes % (Manual) Seg Neutrophils # Man 22.7 H Monocytes # (Manual) 1.8 H Eosinophils # (Manual) D-Dimer POC ABG pCO2 POC ABG pO2 Sodium Potassium Chloride Carbon Dioxide BUN Creatinine Glucose POC Glucose 191 H 172 H Lactic Acid Calcium TIBC Ferritin Lactate Dehydrogenase Vitamin B12 Crossmatch 08/24/16 08/24/16 08/25/16 05:49 12:21 00:23 WBC RBC Hgb Hct RDW Seg Neuts % (Manual) Lymphocytes % (Manual) Monocytes % (Manual) Seg Neutrophils # Man Monocytes # (Manual) Eosinophils # (Manual) D-Dimer POC ABG pCO2 POC ABG pO2 Sodium Potassium 3.3 L Chloride Carbon Dioxide BUN 64 H Creatinine 3.1 H Glucose 183 H POC Glucose 239 H 147 H Lactic Acid Calcium 8.2 L TIBC Ferritin Lactate Dehydrogenase Vitamin B12 Crossmatch 08/25/16 08/25/16 08/25/16 04:36 08:00 08:00 WBC 21.7 H RBC 2.56 L Hgb 7.5 L Hct 23.3 L RDW 19.1 H Seg Neuts % (Manual) 77.0 H Lymphocytes % (Manual) 9.0 L Monocytes % (Manual) 11.0 H Seg Neutrophils # Man 16.7 H Monocytes # (Manual) 2.4 H Eosinophils # (Manual) 0.7 H D-Dimer POC ABG pCO2 POC ABG pO2 Sodium Potassium 3.4 L Chloride 95.6 L Carbon Dioxide BUN 77 H Creatinine 4.1 H Glucose POC Glucose 128 H Lactic Acid Calcium 8.1 L TIBC Ferritin Lactate Dehydrogenase Vitamin B12 Crossmatch Allied health notes reviewed: nursing
[2016-08-25] MEDS: SODIUM BICARBONATE PO SCH (11:20)
[2016-08-25] MEDS: PEPCID PO SCH (11:20)
[2016-08-25] MEDS: CUBICIN IV SCH (11:21)
[2016-08-25] MEDS: NACL 0.9% IV SCH (11:21)
--- NOTE | 2016-08-25 12:27 | Progress Note ---
Assessment and Plan Assessment and plan: 1. Polymicrobial sepsis ID input appreciated, vas cath was removed, continue antibiotics echo shows ef 45% and impaired relaxation, no thrombus or vegetation seen, fup repeat cultures will need continue iv abx upon dc 2. C. difficile Continue PO vanco 3. End-stage renal disease HD per renal 4. Sacral decubitus- Continue wound care 5. Diabetes Optimize insulins has a bed at [facility], for when plans for ABx are finalized History Interval history: Her nurse notes that she's been confused and talking to herself, she been confused and not obeying commands. No fevers overnight. He has not been agitated, the patient herself does not voice any complaints. Hospitalist Physical - Physical exam Narrative exam: General: Patient appears well in no distress HEENT: MMM, EOMI cardiac: S1-S2 heard lungs: clear to auscultation, abdomen: soft, nontender, nondistended bowel sounds positive extremities: no edema clubbing or cyanosis Skin: no rash or lesion Neuro: Right hemiparesis Psych: Confused, disoriented - Constitutional Vitals: Temp Pulse Resp BP Pulse Ox 98.9 F 98 H 16 112/55 98 08/25/16 08:00 08/25/16 10:11 08/25/16 10:11 08/25/16 08:00 08/25/16 10:13 General appearance: Present: no acute distress, well-nourished, obese Results - Labs CBC & Chem 7: 08/25/16 08:00 08/25/16 08:00 Labs: Laboratory Last Values WBC 21.7 K/mm3 (4.5-11.0) H 08/25/16 08:00 RBC 2.56 M/mm3 (3.65-5.03) L 08/25/16 08:00 Hgb 7.5 gm/dl (10.1-14.3) L 08/25/16 08:00 Hct 23.3 % (30.3-42.9) L 08/25/16 08:00 MCV 91 fl (79-97) 08/25/16 08:00 MCH 29 pg (28-32) 08/25/16 08:00 MCHC 32 % (30-34) 08/25/16 08:00 RDW 19.1 % (13.2-15.2) H 08/25/16 08:00 Plt Count 258 K/mm3 (140-440) 08/25/16 08:00 Add Manual Diff Complete 08/25/16 08:00 Total Counted 100 08/25/16 08:00 Seg Neutrophils % Clod Puller 08/21/16 Unknown Seg Neuts % (Manual) 77.0 % (40.0-70.0) H 08/25/16 08:00 Band Neutrophils % 0 % 08/25/16 08:00 Lymphocytes % (Manual) 9.0 % (13.4-35.0) L 08/25/16 08:00 Reactive Lymphs % (Man) 0 % 08/25/16 08:00 Monocytes % (Manual) 11.0 % (0.0-7.3) H 08/25/16 08:00 Eosinophils % (Manual) 3.0 % (0.0-4.3) 08/25/16 08:00 Basophils % (Manual) 0 % (0.0-1.8) 08/25/16 08:00 Metamyelocytes % 0 % 08/25/16 08:00 Myelocytes % 0 % 08/25/16 08:00 Promyelocytes % 0 % 08/25/16 08:00 Blast Cells % 0 % 08/25/16 08:00 Nucleated RBC % Not Reportable 08/25/16 08:00 Seg Neutrophils # Man 16.7 K/mm3 (1.8-7.7) H 08/25/16 08:00 Band Neutrophils # 0.0 K/mm3 08/25/16 08:00 Lymphocytes # (Manual) 2.0 K/mm3 (1.2-5.4) 08/25/16 08:00 Abs React Lymphs (Man) 0.0 K/mm3 08/25/16 08:00 Monocytes # (Manual) 2.4 K/mm3 (0.0-0.8) H 08/25/16 08:00 Eosinophils # (Manual) 0.7 K/mm3 (0.0-0.4) H 08/25/16 08:00 Basophils # (Manual) 0.0 K/mm3 (0.0-0.1) 08/25/16 08:00 Metamyelocytes # 0.0 K/mm3 08/25/16 08:00 Myelocytes # 0.0 K/mm3 08/25/16 08:00 Promyelocytes # 0.0 K/mm3 08/25/16 08:00 Blast Cells # 0.0 K/mm3 08/25/16 08:00 Pathologist Review 08/19/16 12:23 WBC Morphology Not Reportable 08/25/16 08:00 Hypersegmented Neuts Not Reportable 08/25/16 08:00 Hyposegmented Neuts Not Reportable 08/25/16 08:00 Hypogranular Neuts Not Reportable 08/25/16 08:00 Smudge Cells Not Reportable 08/25/16 08:00 Toxic Granulation Not Reportable 08/25/16 08:00 Toxic Vacuolation Not Reportable 08/25/16 08:00 Dohle Bodies Not Reportable 08/25/16 08:00 Pelger-Huet Anomaly Not Reportable 08/25/16 08:00 Quynh Rods Not Reportable 08/25/16 08:00 Platelet Estimate Appears normal 08/25/16 08:00 Clumped Platelets Not Reportable 08/25/16 08:00 Plt Clumps, EDTA Not Reportable 08/25/16 08:00 Large Platelets Not Reportable 08/25/16 08:00 Giant Platelets Not Reportable 08/25/16 08:00 Platelet Satelliting Not Reportable 08/25/16 08:00 Plt Morphology Comment Not Reportable 08/25/16 08:00 RBC Morphology Not Reportable 08/25/16 08:00 Dimorphic RBCs Not Reportable 08/25/16 08:00 Polychromasia Few 08/25/16 08:00 Hypochromasia Not Reportable 08/25/16 08:00 Poikilocytosis Not Reportable 08/25/16 08:00 Anisocytosis 2+ 08/25/16 08:00 Microcytosis Not Reportable 08/25/16 08:00 Macrocytosis Not Reportable 08/25/16 08:00 Spherocytes Not Reportable 08/25/16 08:00 Pappenheimer Bodies Not Reportable 08/25/16 08:00 Sickle Cells Not Reportable 08/25/16 08:00 Target Cells 1+ 08/25/16 08:00 Tear Drop Cells Not Reportable 08/25/16 08:00 Ovalocytes Not Reportable 08/25/16 08:00 Stomatocytes 1+ 08/24/16 05:49 Helmet Cells Not Reportable 08/25/16 08:00 [place] Bodies Not Reportable 08/25/16 08:00 [place] Rings Not Reportable 08/25/16 08:00 [place] Cells Not Reportable 08/25/16 08:00 Bite Cells Not Reportable 08/25/16 08:00 Crenated Cell Not Reportable 08/25/16 08:00 Elliptocytes Not Reportable 08/25/16 08:00 Acanthocytes (Spur) Not Reportable 08/25/16 08:00 Rouleaux Not Reportable 08/25/16 08:00 Hemoglobin C Crystals Not Reportable 08/25/16 08:00 Schistocytes Not Reportable 08/25/16 08:00 Malaria parasites Not Reportable 08/25/16 08:00 Percent Retic 2.01 % (0.78-2.58) 08/12/16 12:16 [place] Bodies Not Reportable 08/25/16 08:00 Hem Pathologist Commnt No 08/25/16 08:00 D-Dimer 5042.20 ng/mlDDU (0-234) H 08/12/16 16:18 POC ABG pH 7.444 (7.35-7.45) 08/12/16 15:23 POC ABG pCO2 29.4 (35-45) L 08/12/16 15:23 POC ABG pO2 51 (80-105) L 08/12/16 15:23 POC ABG HCO3 20.2 08/12/16 15:23 POC ABG Total CO2 21 08/12/16 15:23 POC ABG O2 Sat 88 08/12/16 15:23 POC ABG Base Excess -4 08/12/16 15:23 FiO2 2 % 08/12/16 15:23 Sodium 139 mmol/L (137-145) 08/25/16 08:00 Potassium 3.4 mmol/L (3.6-5.0) L 08/25/16 08:00 Chloride 95.6 mmol/L (98-107) L 08/25/16 08:00 Carbon Dioxide 24 mmol/L (22-30) 08/25/16 08:00 Anion Gap 23 mmol/L 08/25/16 08:00 BUN 77 mg/dL (7-17) H 08/25/16 08:00 Creatinine 4.1 mg/dL (0.7-1.2) H 08/25/16 08:00 Estimated GFR 13 ml/min 08/25/16 08:00 BUN/Creatinine Ratio 18.78 % 08/25/16 08:00 Glucose 82 mg/dL (65-100) 08/25/16 08:00 POC Glucose 128 (70-105) H 08/25/16 04:36 Lactic Acid 2.0 mmol/L (0.7-2.0) 08/12/16 05:30 Calcium 8.1 mg/dL (8.4-10.2) L 08/25/16 08:00 Magnesium 2.2 mg/dL (1.7-2.3) 08/11/16 15:28 Iron 62 ug/dL (37-170) 08/12/16 12:16 TIBC 101 mcg/dL (250-450) L 08/12/16 12:16 Ferritin 2000.0 ng/mL (13.0-400.0) H 08/12/16 12:16 Total Bilirubin 1.0 mg/dL (0.1-1.2) 08/11/16 15:28 AST 258 units/L (5-40) H 08/11/16 15:28 ALT 201 units/L (7-56) H 08/11/16 15:28 Alkaline Phosphatase 458 units/L (35-129) H 08/11/16 15:28 Ammonia 49.0 umol/L (25-60) 08/15/16 06:00 Lactate Dehydrogenase 276 units/L (91-180) H 08/12/16 12:16 C-Reactive Protein 37.70 mg/dL (0.00-1.30) H 08/11/16 15:28 Total Protein 7.1 g/dL (6.3-8.2) 08/11/16 15:28 Albumin 2.3 g/dL (3.9-5) L 08/11/16 15:28 Albumin/Globulin Ratio 0.5 % 08/11/16 15:28 Vitamin B12 1117 pg/mL (211-911) H 08/12/16 12:16 Folate 18.10 ng/mL (7.3-26.0) 08/12/16 12:16 TSH 1.360 mlU/mL (0.270-4.200) 08/11/16 15:28 Urine Color Hortencia (Yellow) 08/11/16 15:17 Urine Turbidity Turbid (Clear) 08/11/16 15:17 Urine pH 5.0 (5.0-7.0) 08/11/16 15:17 Ur Specific [place] 1.022 (1.003-1.030) 08/11/16 15:17 Urine Protein >500 mg/dL (Negative) 08/11/16 15:17 Urine Glucose (UA) Neg mg/dL (Negative) 08/11/16 15:17 Urine Ketones Tr mg/dL (Negative) 08/11/16 15:17 Urine Blood Sm (Negative) 08/11/16 15: Urine Nitrite Neg (Negative) 08/11/16 15:17 Ur Reducing Substances Not Reportable 08/11/16 15:17 Urine Bilirubin Neg (Negative) 08/11/16 15:17 Urine Ictotest Not Reportable 08/11/16 15:17 Urine Urobilinogen < 2.0 mg/dL (<2.0) 08/11/16 15:17 Ur Leukocyte Esterase Mod (Negative) 08/11/16 15:17 Urine WBC (Auto) > 182.0 /HPF (0.0-6.0) H 08/11/16 15:17 Urine RBC (Auto) 48.0 /HPF (0.0-6.0) 08/11/16 15:17 U Epithel Cells (Auto) 4.0 /HPF (0-13.0) 08/11/16 15:17 Urine Bacteria (Auto) 4+ /HPF (Negative) 08/11/16 15:17 Urine HCG, Qual Negative (Negative) 08/11/16 15:17 Random Vancomycin 13.7 ug/mL (0-40.0) 08/15/16 06:00 Salicylates < 0.3 mg/dL (2.8-20.0) L 08/11/16 15:28 Urine Opiates Screen Presumptive negative 08/11/16 15:17 Urine Methadone Screen Presumptive negative 08/11/16 15:17 Acetaminophen < 15.0 ug/mL (10.0-30.0) 08/11/16 15:28 Ur Barbiturates Screen Presumptive negative 08/11/16 15:17 Ur Phencyclidine Scrn Presumptive negative 08/11/16 15:17 Ur Amphetamines Screen Presumptive negative 08/11/16 15:17 U Benzodiazepines Scrn Presumptive negative 08/11/16 15:17 Urine Cocaine Screen Presumptive negative 08/11/16 15:17 U Marijuana (THC) Screen Presumptive negative 08/11/16 15:17 Drugs of Abuse Note Disclamer 08/11/16 15:17 Plasma/Serum Alcohol < 0.01 gm% (0-0.07) 08/11/16 15:28 Blood Type B POSITIVE 08/11/16 19:45 Antibody Screen Negative 08/11/16 19:45 Crossmatch See Detail 08/11/16 19:45
--- NOTE | 2016-08-25 13:41 | Progress Note ---
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 Admitting blood cultures are grew VRE faecium & ESBL Klebsiella. Problem list: 1. Polymicrobial bacteremia and sepsis -08/16 blood cultures were still positive for VRE faecium -08/11 blood cultures with 4/4 bottles with ESBL Klebsiella pneumoniae and Vancomycin resistant Enterococcus faecium -Previous permacath source (removed 08/15) -08/19 blood cultures sterile 2. Left chest wall permacath infection -Status post removal 08/15 -Tip culture grew Proteus mirabilis and VRE faecium 3. C. diff. infection -Toxin assay positive 08/13 -Diarrhea improved -Now on enteral vancomycin 4. Leukocytosis -Marked elevation to 51,000 on admission -Multifactorial with bacteremia & C diff infection -Slowly trending downward. 5. Presacral pressure sore -Uninfected at present 6. End-stage renal failure -Left chest PermCath - removal 08/15 7. Status post right hemispheral stroke -Left hemiplegia 8. Lactic acidosis -Secondary to #1 -Resolved 8. Type 2 DM PLAN: 1. Continue Meropenem versus the ESBL Klebsiella blood isolate 2. Continue daptomycin versus the VRE 3. Continue enteral vancomycin vs C diff infection 4. Glycemic control as per the primary team 5. Follow-up on repeat blood cultures which were drawn on 08/19, and 08/23 6. Continue C. difficile & VRE isolation precautions 7. If bacteremic again may need to consider NILSON Subjective Date of service: 08/25/16 Principal diagnosis: Polymicrobial bacteremia and sepsis; C. difficile infection Objective - Constitutional Vitals: Vital Signs Temp Pulse Resp BP Pulse Ox 98.9 F 98 H 16 112/55 98 08/25/16 08:00 08/25/16 10:11 08/25/16 10:11 08/25/16 08:00 08/25/16 10:13 Temperature -Last 24 Hours Temperature 98.9 F Temperature 98 F Temperature 97.8 F Temperature 98.9 F Temperature 98.6 F - Labs CBC & Chem 7: 08/25/16 08:00 08/25/16 08:00 Labs: Abnormal lab results 08/25/16 08/25/16 08/25/16 Range/Units 00:23 04:36 08:00 WBC 21.7 H (4.5-11.0) K/mm3 RBC 2.56 L (3.65-5.03) M/mm3 Hgb 7.5 L (10.1-14.3) gm/dl Hct 23.3 L (30.3-42.9) % RDW 19.1 H (13.2-15.2) % Seg Neuts % (Manual) 77.0 H (40.0-70.0) % Lymphocytes % (Manual) 9.0 L (13.4-35.0) % Monocytes % (Manual) 11.0 H (0.0-7.3) % Seg Neutrophils # Man 16.7 H (1.8-7.7) K/mm3 Monocytes # (Manual) 2.4 H (0.0-0.8) K/mm3 Eosinophils # (Manual) 0.7 H (0.0-0.4) K/mm3 Potassium (3.6-5.0) mmol/L Chloride (98-107) mmol/L BUN (7-17) mg/dL Creatinine (0.7-1.2) mg/dL POC Glucose 147 H 128 H (70-105) Calcium (8.4-10.2) mg/dL 08/25/16 Range/Units 08:00 WBC (4.5-11.0) K/mm3 RBC (3.65-5.03) M/mm3 Hgb (10.1-14.3) gm/dl Hct (30.3-42.9) % RDW (13.2-15.2) % Seg Neuts % (Manual) (40.0-70.0) % Lymphocytes % (Manual) (13.4-35.0) % Monocytes % (Manual) (0.0-7.3) % Seg Neutrophils # Man (1.8-7.7) K/mm3 Monocytes # (Manual) (0.0-0.8) K/mm3 Eosinophils # (Manual) (0.0-0.4) K/mm3 Potassium 3.4 L (3.6-5.0) mmol/L Chloride 95.6 L (98-107) mmol/L BUN 77 H (7-17) mg/dL Creatinine 4.1 H (0.7-1.2) mg/dL POC Glucose (70-105) Calcium 8.1 L (8.4-10.2) mg/dL
[2016-08-25] MEDS: SIMPLE SYRUP FEEDTUBE PRN (18:54)
[2016-08-25] MEDS ORDERED: D50W (25GM) IV ONE (20:08)
[2016-08-25] MEDS ORDERED: KEPPRA 1,000 MG in D5W 100 ML IV ONE (20:28)
[2016-08-25] MEDS: ATIVAN IV PRN (20:40)
[2016-08-25] MEDS: HEPARIN IV PRN (23:45)
[2016-08-25] MEDS: PROCRIT IV PRN (23:45)
[2016-08-26] MEDS: KEPPRA PO SCH ×3 (00:59→22:06)
[2016-08-26] MEDS: VANCOMYCIN PO SCH ×4 (00:59→18:08)
[2016-08-26] MEDS: NOVOLOG SUB-Q SCH ×2 (01:00→17:22)
[2016-08-26] MEDS: SODIUM BICARBONATE PO SCH ×3 (01:00→22:07)
[2016-08-26] MEDS: HEPARIN SUB-Q SCH ×3 (01:01→22:07)
[2016-08-26 09:08] LABS: Basophils % (Auto) 0.5 % (0.0-1.8); Eosinophils % (Auto) 0.5 % (0.0-4.3); Hematocrit 24.7 % (30.3-42.9); Mean Corpuscular HGB Conc 32 % (30-34); Mean Corpuscular Hemoglobin 29 pg (28-32); Mean Corpuscular Volume 91 fl (79-97); Platelet Count 257 K/mm3 (140-440); Red Blood Count 2.72 M/mm3 (3.65-5.03); Red Cell Distribution Width 19.5 % (13.2-15.2); White Blood Count 19.2 K/mm3 (4.5-11.0)
[2016-08-26 09:20] LABS: BUN/Creatinine Ratio 20.32; Calcium 8.4 mg/dL (8.4-10.2); Chloride 99.8 mmol/L (98-107); Potassium 3.5 mmol/L (3.6-5.0)
[2016-08-26] MEDS: LEVEMIR SUB-Q SCH ×2 (10:00→10:05)
[2016-08-26] MEDS: PEPCID PO SCH (10:04)
[2016-08-26] MEDS: DUONEB 0.5 MG-3 MG/3 ML SOLN IH SCH ×3 (10:25→19:39)
--- NOTE | 2016-08-26 11:09 | Progress Note ---
Assessment and Plan Assessment and plan: 1. Polymicrobial sepsis ID input appreciated, vas cath was removed, continue antibiotics echo shows ef 45% and impaired relaxation, no thrombus or vegetation seen Repeat blood cultures have so far negative will need continue iv abx upon dc 2. C. difficile Continue PO vanco 3. End-stage renal disease HD per renal 4. Sacral decubitus- Continue wound care 5. Diabetes Optimize insulins has a bed at [facility], for when plans for ABx are finalized History Interval history: No nursing issues overnight, patient moans, altered. Hospitalist Physical - Physical exam Narrative exam: Not in cardiopulmonary distress. Vital signs as documented. Head exam is unremarkable. No scleral icterus . Neck is without jugular venous distension, thyromegaly, or carotid bruits. Lungs are clear to auscultation. Cardiac exam reveals regular rate and Rhythm. First and second heart sounds normal. No murmurs, rubs or gallops. Abdominal exam reveals normal bowel sounds, no masses, no organomegaly and no aortic enlargement. Extremities are nonedematous and both femoral and pedal pulses are normal. CHAIN OFFBEARER: patient is altered. - Constitutional Vitals: Temp Pulse Resp BP Pulse Ox 98.3 F 101 H 16 152/72 100 08/26/16 08:00 08/26/16 10:37 08/26/16 10:37 08/26/16 08:00 08/26/16 10:00 General appearance: Present: no acute distress, well-nourished, obese Results - Labs CBC & Chem 7: 08/26/16 08:00 08/26/16 08:00 Labs: Laboratory Last Values WBC 19.2 K/mm3 (4.5-11.0) H 08/26/16 08:00 RBC 2.72 M/mm3 (3.65-5.03) L 08/26/16 08:00 Hgb 8.0 gm/dl (10.1-14.3) L 08/26/16 08:00 Hct 24.7 % (30.3-42.9) L 08/26/16 08:00 MCV 91 fl (79-97) 08/26/16 08:00 MCH 29 pg (28-32) 08/26/16 08:00 MCHC 32 % (30-34) 08/26/16 08:00 RDW 19.5 % (13.2-15.2) H 08/26/16 08:00 Plt Count 257 K/mm3 (140-440) 08/26/16 08:00 Lymph % (Auto) 10.3 % (13.4-35.0) L 08/26/16 08:00 [place] % (Auto) 11.6 % (0.0-7.3) H 08/26/16 08:00 Eos % (Auto) 0.5 % (0.0-4.3) 08/26/16 08:00 Baso % (Auto) 0.5 % (0.0-1.8) 08/26/16 08:00 Lymph # 2.0 K/mm3 (1.2-5.4) 08/26/16 08:00 [place] # 2.2 K/mm3 (0.0-0.8) H 08/26/16 08:00 Eos # 0.1 K/mm3 (0.0-0.4) 08/26/16 08:00 Baso # 0.1 K/mm3 (0.0-0.1) 08/26/16 08:00 Add Manual Diff Complete 08/25/16 08:00 Total Counted 100 08/25/16 08:00 Seg Neutrophils % 77.1 % (40.0-70.0) H 08/26/16 08:00 Seg Neuts % (Manual) 77.0 % (40.0-70.0) H 08/25/16 08:00 Band Neutrophils % 0 % 08/25/16 08:00 Lymphocytes % (Manual) 9.0 % (13.4-35.0) L 08/25/16 08:00 Reactive Lymphs % (Man) 0 % 08/25/16 08:00 Monocytes % (Manual) 11.0 % (0.0-7.3) H 08/25/16 08:00 Eosinophils % (Manual) 3.0 % (0.0-4.3) 08/25/16 08:00 Basophils % (Manual) 0 % (0.0-1.8) 08/25/16 08:00 Metamyelocytes % 0 % 08/25/16 08:00 Myelocytes % 0 % 08/25/16 08:00 Promyelocytes % 0 % 08/25/16 08:00 Blast Cells % 0 % 08/25/16 08:00 Nucleated RBC % Not Reportable 08/25/16 08:00 Seg Neutrophils # 14.8 K/mm3 (1.8-7.7) H 08/26/16 08:00 Seg Neutrophils # Man 16.7 K/mm3 (1.8-7.7) H 08/25/16 08:00 Band Neutrophils # 0.0 K/mm3 08/25/16 08:00 Lymphocytes # (Manual) 2.0 K/mm3 (1.2-5.4) 08/25/16 08:00 Abs React Lymphs (Man) 0.0 K/mm3 08/25/16 08:00 Monocytes # (Manual) 2.4 K/mm3 (0.0-0.8) H 08/25/16 08:00 Eosinophils # (Manual) 0.7 K/mm3 (0.0-0.4) H 08/25/16 08:00 Basophils # (Manual) 0.0 K/mm3 (0.0-0.1) 08/25/16 08:00 Metamyelocytes # 0.0 K/mm3 08/25/16 08:00 Myelocytes # 0.0 K/mm3 08/25/16 08:00 Promyelocytes # 0.0 K/mm3 08/25/16 08:00 Blast Cells # 0.0 K/mm3 08/25/16 08:00 Pathologist Review 08/19/16 12:23 WBC Morphology Not Reportable 08/25/16 08:00 Hypersegmented Neuts Not Reportable 08/25/16 08:00 Hyposegmented Neuts Not Reportable 08/25/16 08:00 Hypogranular Neuts Not Reportable 08/25/16 08:00 Smudge Cells Not Reportable 08/25/16 08:00 Toxic Granulation Not Reportable 08/25/16 08:00 Toxic Vacuolation Not Reportable 08/25/16 08:00 Dohle Bodies Not Reportable 08/25/16 08:00 Pelger-Huet Anomaly Not Reportable 08/25/16 08:00 Quynh Rods Not Reportable 08/25/16 08:00 Platelet Estimate Appears normal 08/25/16 08:00 Clumped Platelets Not Reportable 08/25/16 08:00 Plt Clumps, EDTA Not Reportable 08/25/16 08:00 Large Platelets Not Reportable 08/25/16 08:00 Giant Platelets Not Reportable 08/25/16 08:00 Platelet Satelliting Not Reportable 08/25/16 08:00 Plt Morphology Comment Not Reportable 08/25/16 08:00 RBC Morphology Not Reportable 08/25/16 08:00 Dimorphic RBCs Not Reportable 08/25/16 08:00 Polychromasia Few 08/25/16 08:00 Hypochromasia Not Reportable 08/25/16 08:00 Poikilocytosis Not Reportable 08/25/16 08:00 Anisocytosis 2+ 08/25/16 08:00 Microcytosis Not Reportable 08/25/16 08:00 Macrocytosis Not Reportable 08/25/16 08:00 Spherocytes Not Reportable 08/25/16 08:00 Pappenheimer Bodies Not Reportable 08/25/16 08:00 Sickle Cells Not Reportable 08/25/16 08:00 Target Cells 1+ 08/25/16 08:00 Tear Drop Cells Not Reportable 08/25/16 08:00 Ovalocytes Not Reportable 08/25/16 08:00 Stomatocytes 1+ 08/24/16 05:49 Helmet Cells Not Reportable 08/25/16 08:00 [place] Bodies Not Reportable 08/25/16 08:00 [place] Rings Not Reportable 08/25/16 08:00 David Cells Not Reportable 08/25/16 08:00 Bite Cells Not Reportable 08/25/16 08:00 Crenated Cell Not Reportable 08/25/16 08:00 Elliptocytes Not Reportable 08/25/16 08:00 Acanthocytes (Spur) Not Reportable 08/25/16 08:00 Rouleaux Not Reportable 08/25/16 08:00 Hemoglobin C Crystals Not Reportable 08/25/16 08:00 Schistocytes Not Reportable 08/25/16 08:00 Malaria parasites Not Reportable 08/25/16 08:00 Percent Retic 2.01 % (0.78-2.58) 08/12/16 12:16 Vinny Bodies Not Reportable 08/25/16 08:00 Hem Pathologist Commnt No 08/25/16 08:00 D-Dimer 5042.20 ng/mlDDU (0-234) H 08/12/16 16:18 POC ABG pH 7.444 (7.35-7.45) 08/12/16 15:23 POC ABG pCO2 29.4 (35-45) L 08/12/16 15:23 POC ABG pO2 51 (80-105) L 08/12/16 15:23 POC ABG HCO3 20.2 08/12/16 15:23 POC ABG Total CO2 21 08/12/16 15:23 POC ABG O2 Sat 88 08/12/16 15:23 POC ABG Base Excess -4 08/12/16 15: FiO2 2 % 08/12/16 15:23 Sodium 143 mmol/L (137-145) 08/26/16 08:00 Potassium 3.5 mmol/L (3.6-5.0) L 08/26/16 08:00 Chloride 99.8 mmol/L (98-107) 08/26/16 08:00 Carbon Dioxide 27 mmol/L (22-30) 08/26/16 08:00 Anion Gap 20 mmol/L 08/26/16 08:00 BUN 63 mg/dL (7-17) H 08/26/16 08:00 Creatinine 3.1 mg/dL (0.7-1.2) H 08/26/16 08:00 Estimated GFR 18 ml/min 08/26/16 08:00 BUN/Creatinine Ratio 20.32 % 08/26/16 08:00 Glucose 84 mg/dL (65-100) 08/26/16 08:00 POC Glucose 100 (70-105) 08/26/16 05:42 Lactic Acid 2.0 mmol/L (0.7-2.0) 08/12/16 05:30 Calcium 8.4 mg/dL (8.4-10.2) 08/26/16 08:00 Magnesium 2.2 mg/dL (1.7-2.3) 08/11/16 15:28 Iron 62 ug/dL (37-170) 08/12/16 12:16 TIBC 101 mcg/dL (250-450) L 08/12/16 12:16 Ferritin 2000.0 ng/mL (13.0-400.0) H 08/12/16 12:16 Total Bilirubin 1.0 mg/dL (0.1-1.2) 08/11/16 15:28 AST 258 units/L (5-40) H 08/11/16 15:28 ALT 201 units/L (7-56) H 08/11/16 15:28 Alkaline Phosphatase 458 units/L (35-129) H 08/11/16 15:28 Ammonia 49.0 umol/L (25-60) 08/15/16 06:00 Lactate Dehydrogenase 276 units/L (91-180) H 08/12/16 12:16 C-Reactive Protein 37.70 mg/dL (0.00-1.30) H 08/11/16 15:28 Total Protein 7.1 g/dL (6.3-8.2) 08/11/16 15:28 Albumin 2.3 g/dL (3.9-5) L 08/11/16 15:28 Albumin/Globulin Ratio 0.5 % 08/11/16 15:28 Vitamin B12 1117 pg/mL (211-911) H 08/12/16 12:16 Folate 18.10 ng/mL (7.3-26.0) 08/12/16 12:16 TSH 1.360 mlU/mL (0.270-4.200) 08/11/16 15:28 Urine Color [place] (Yellow) 08/11/16 15:17 Urine Turbidity Turbid (Clear) 08/11/16 15:17 Urine pH 5.0 (5.0-7.0) 08/11/16 15:17 Ur Specific [place] 1.022 (1.003-1.030) 08/11/16 15:17 Urine Protein >500 mg/dL (Negative) 08/11/16 15:17 Urine Glucose (UA) Neg mg/dL (Negative) 08/11/16 15:17 Urine Ketones Tr mg/dL (Negative) 08/11/16 15:17 Urine Blood Sm (Negative) 08/11/16 15:17 Urine Nitrite Neg (Negative) 08/11/16 15:17 Ur Reducing Substances Not Reportable 08/11/16 15:17 Urine Bilirubin Neg (Negative) 08/11/16 15:17 Urine Ictotest Not Reportable 08/11/16 15:17 Urine Urobilinogen < 2.0 mg/dL (<2.0) 08/11/16 15:17 Ur Leukocyte Esterase Mod (Negative) 08/11/16 15:17 Urine WBC (Auto) > 182.0 /HPF (0.0-6.0) H 08/11/16 15:17 Urine RBC (Auto) 48.0 /HPF (0.0-6.0) 08/11/16 15:17 U Epithel Cells (Auto) 4.0 /HPF (0-13.0) 08/11/16 15:17 Urine Bacteria (Auto) 4+ /HPF (Negative) 08/11/16 15:17 Urine HCG, Qual Negative (Negative) 08/11/16 15:17 Random Vancomycin 13.7 ug/mL (0-40.0) 08/15/16 06:00 Salicylates < 0.3 mg/dL (2.8-20.0) L 08/11/16 15:28 Urine Opiates Screen Presumptive negative 08/11/16 15:17 Urine Methadone Screen Presumptive negative 08/11/16 15:17 Acetaminophen < 15.0 ug/mL (10.0-30.0) 08/11/16 15:28 Ur Barbiturates Screen Presumptive negative 08/11/16 15:17 Ur Phencyclidine Scrn Presumptive negative 08/11/16 15:17 Ur Amphetamines Screen Presumptive negative 08/11/16 15:17 U Benzodiazepines Scrn Presumptive negative 08/11/16 15:17 Urine Cocaine Screen Presumptive negative 08/11/16 15:17 U Marijuana (THC) Screen Presumptive negative 08/11/16 15:17 Drugs of Abuse Note Disclamer 08/11/16 15:17 Plasma/Serum Alcohol < 0.01 gm% (0-0.07) 08/11/16 15:28 Blood Type B POSITIVE 08/11/16 19:45 Antibody Screen Negative 08/11/16 19:45 Crossmatch See Detail 08/11/16 19:45
--- NOTE | 2016-08-26 14:09 | Progress Note ---
Assessment and Plan 1. Septic shock. - resolved - prn lactate levels. - s/p vascath replacement - wound care per WCT - On daptomycin, merem and p.o. vancomycin - adjust AB's per ID recs 2. Toxic metabolic encephalopathy. - Continue treating underlying causes. - ? dementia element 3. UTI. - Follow-up urine culture and continue antibiotics. 4. Diabetes mellitus, type II. - Continue Accu-Cheks and sliding scale regular insulin. 5. ESRD. Nephrology consultation pending. - Continue hemodialysis per nephrology. 6. Seizure disorder. - Continue Keppra IV. No new activity. - Seizure precautions. 9. Oropharyngeal dysphagia - s/p PEG- Enteric feeding, glycemic control. Aspiration precautions. Subjective Date of service: 08/26/16 Principal diagnosis: Polymicrobial bacteremia and sepsis; C. difficile infection Interval history: Seen and examined at bedside; 24 hour events reviewed; nursing and respiratory care staff consulted; no adverse overnight events reported to me;resting in bed ; on 2L NC Objective Vital Signs - 12hr 08/26/16 08/26/16 08/26/16 08:00 10:00 10:25 Temperature 98.3 F Pulse Rate 102 H Pulse Rate [ 100 H Anterior Bilateral Throughout] Pulse Rate [ 101 H Apical] Respiratory 20 Rate Respiratory 16 Rate [Anterior Bilateral Throughout] Blood Pressure 152/72 [Right Arm] O2 Sat by Pulse 100 100 Oximetry 08/26/16 10:37 Temperature Pulse Rate Pulse Rate [ 101 H Anterior Bilateral Throughout] Pulse Rate [ Apical] Respiratory Rate Respiratory 16 Rate [Anterior Bilateral Throughout] Blood Pressure [Right Arm] O2 Sat by Pulse Oximetry Constitutional: no acute distress, other (somnolent) Eyes: non-icteric ENT: oropharynx moist Neck: supple Effort: normal Ascultation: Bilateral: diminished breath sounds, rhonchi (scant in bases) Cardiovascular: regular rate and rhythm Gastrointestinal: normoactive bowel sounds, soft, non-tender, non-distended Integumentary: normal Extremities: no cyanosis, no edema, no ischemia or petechiae, other (dressings to feet) Neurologic: non-focal exam (grossly), pupils equal and round, motor strength normal and Psychiatric: other (unable to assess) CBC and BMP: 08/27/16 06:09 08/27/16 06:09 ABG, PT/INR, D-dimer: ABG POC ABG pH 7.444 (7.35-7.45) 08/12/16 15:23 POC ABG pCO2 29.4 (35-45) L 08/12/16 15:23 POC ABG pO2 51 (80-105) L 08/12/16 15:23 POC ABG HCO3 20.2 08/12/16 15:23 POC ABG Total CO2 21 08/12/16 15:23 POC ABG O2 Sat 88 08/12/16 15:23 PT/INR, D-dimer D-Dimer 5042.20 ng/mlDDU (0-234) H 08/12/16 16:18 Abnormal lab findings: Abnormal Labs 08/11/16 08/11/16 08/12/16 19:45 23:01 02:35 WBC RBC Hgb Hct RDW Lymph % (Auto) Leon % (Auto) Leon # Seg Neutrophils % Seg Neuts % (Manual) Lymphocytes % (Manual) Monocytes % (Manual) Seg Neutrophils # Seg Neutrophils # Man Monocytes # (Manual) Eosinophils # (Manual) D-Dimer POC ABG pCO2 POC ABG pO2 Sodium Potassium Chloride Carbon Dioxide BUN Creatinine Glucose POC Glucose 307 H Lactic Acid 3.5 H* Calcium TIBC Ferritin Lactate Dehydrogenase Vitamin B12 Crossmatch See Detail 08/12/16 08/12/16 08/12/16 05:30 05:30 11:09 WBC 38.6 H RBC 3.14 L Hgb 8.7 L Hct 28.1 L D RDW 18.3 H Lymph % (Auto) Leon % (Auto) Leon # Seg Neutrophils % Seg Neuts % (Manual) Lymphocytes % (Manual) 9.0 L Monocytes % (Manual) 8.0 H Seg Neutrophils # Seg Neutrophils # Man 16.6 H Monocytes # (Manual) 3.1 H Eosinophils # (Manual) 1.2 H D-Dimer POC ABG pCO2 POC ABG pO2 Sodium 133 L Potassium 3.0 L Chloride 92.4 L Carbon Dioxide 21 L BUN 44 H Creatinine 2.3 H Glucose 270 H POC Glucose 247 H Lactic Acid Calcium 8.2 L TIBC Ferritin Lactate Dehydrogenase Vitamin B12 Crossmatch 08/12/16 08/12/16 08/12/16 12:16 12:16 12:16 WBC RBC Hgb Hct RDW Lymph % (Auto) Leon % (Auto) Leon # Seg Neutrophils % Seg Neuts % (Manual) Lymphocytes % (Manual) Monocytes % (Manual) Seg Neutrophils # Seg Neutrophils # Man Monocytes # (Manual) Eosinophils # (Manual) D-Dimer POC ABG pCO2 POC ABG pO2 Sodium Potassium Chloride Carbon Dioxide BUN Creatinine Glucose POC Glucose Lactic Acid Calcium TIBC Ferritin 2000.0 H Lactate Dehydrogenase 276 H Vitamin B12 1117 H Crossmatch 08/12/16 08/12/16 08/12/16 12:16 15:23 16:18 WBC RBC Hgb Hct RDW Lymph % (Auto) Leon % (Auto) Leon # Seg Neutrophils % Seg Neuts % (Manual) Lymphocytes % (Manual) Monocytes % (Manual) Seg Neutrophils # Seg Neutrophils # Man Monocytes # (Manual) Eosinophils # (Manual) D-Dimer 5042.20 H POC ABG pCO2 29.4 L POC ABG pO2 51 L Sodium Potassium Chloride Carbon Dioxide BUN Creatinine Glucose POC Glucose Lactic Acid Calcium TIBC 101 L Ferritin Lactate Dehydrogenase Vitamin B12 Crossmatch 08/12/16 08/12/16 08/13/16 17:45 23:36 06:58 WBC RBC Hgb Hct RDW Lymph % (Auto) Leon % (Auto) Leon # Seg Neutrophils % Seg Neuts % (Manual) Lymphocytes % (Manual) Monocytes % (Manual) Seg Neutrophils # Seg Neutrophils # Man Monocytes # (Manual) Eosinophils # (Manual) D-Dimer POC ABG pCO2 POC ABG pO2 Sodium Potassium Chloride Carbon Dioxide BUN Creatinine Glucose POC Glucose 196 H 170 H 199 H Lactic Acid Calcium TIBC Ferritin Lactate Dehydrogenase Vitamin B12 Crossmatch 08/13/16 08/13/16 08/13/16 11:25 16:29 21:10 WBC RBC Hgb Hct RDW Lymph % (Auto) Leon % (Auto) Leon # Seg Neutrophils % Seg Neuts % (Manual) Lymphocytes % (Manual) Monocytes % (Manual) Seg Neutrophils # Seg Neutrophils # Man Monocytes # (Manual) Eosinophils # (Manual) D-Dimer POC ABG pCO2 POC ABG pO2 Sodium Potassium Chloride Carbon Dioxide BUN Creatinine Glucose POC Glucose 267 H 277 H 203 H Lactic Acid Calcium TIBC Ferritin Lactate Dehydrogenase Vitamin B12 Crossmatch 08/13/16 08/13/16 08/14/16 Unknown Unknown 07:42 WBC 30.0 H RBC 2.75 L Hgb 7.8 L Hct 24.0 L RDW 18.4 H Lymph % (Auto) Leon % (Auto) Leon # Seg Neutrophils % Seg Neuts % (Manual) 75.0 H Lymphocytes % (Manual) 7.0 L Monocytes % (Manual) Seg Neutrophils # Seg Neutrophils # Man 22.5 H Monocytes # (Manual) Eosinophils # (Manual) D-Dimer POC ABG pCO2 POC ABG pO2 Sodium 133 L Potassium 3.4 L Chloride 95.2 L Carbon Dioxide 18 L BUN 58 H Creatinine 2.9 H Glucose 201 H POC Glucose 306 H Lactic Acid Calcium 8.2 L TIBC Ferritin Lactate Dehydrogenase Vitamin B12 Crossmatch 08/14/16 08/14/16 08/14/16 08:26 08:26 11:19 WBC 28.9 H RBC 2.92 L Hgb 8.2 L Hct 25.9 L RDW 18.8 H Lymph % (Auto) Leon % (Auto) Leon # Seg Neutrophils % Seg Neuts % (Manual) 85.5 H Lymphocytes % (Manual) 4.5 L Monocytes % (Manual) Seg Neutrophils # Seg Neutrophils # Man 24.7 H Monocytes # (Manual) 0.9 H Eosinophils # (Manual) D-Dimer POC ABG pCO2 POC ABG pO2 Sodium Potassium Chloride Carbon Dioxide 15 L BUN 77 H Creatinine 3.5 H Glucose 289 H POC Glucose 274 H Lactic Acid Calcium 8.3 L TIBC Ferritin Lactate Dehydrogenase Vitamin B12 Crossmatch 08/14/16 08/14/16 08/15/16 15:56 21:12 06:00 WBC 30.1 H RBC 2.67 L Hgb 7.8 L Hct 23.4 L RDW 18.4 H Lymph % (Auto) Leon % (Auto) Leon # Seg Neutrophils % Seg Neuts % (Manual) 86.0 H Lymphocytes % (Manual) 4.0 L Monocytes % (Manual) Seg Neutrophils # Seg Neutrophils # Man 25.9 H Monocytes # (Manual) 1.8 H Eosinophils # (Manual) D-Dimer POC ABG pCO2 POC ABG pO2 Sodium Potassium Chloride Carbon Dioxide BUN Creatinine Glucose POC Glucose 284 H 357 H Lactic Acid Calcium TIBC Ferritin Lactate Dehydrogenase Vitamin B12 Crossmatch 08/15/16 08/15/16 08/15/16 06:00 11:17 16:43 WBC RBC Hgb Hct RDW Lymph % (Auto) Leon % (Auto) Leon # Seg Neutrophils % Seg Neuts % (Manual) Lymphocytes % (Manual) Monocytes % (Manual) Seg Neutrophils # Seg Neutrophils # Man Monocytes # (Manual) Eosinophils # (Manual) D-Dimer POC ABG pCO2 POC ABG pO2 Sodium Potassium 3.5 L Chloride 96.6 L Carbon Dioxide 21 L BUN 51 H Creatinine 2.6 H Glucose 214 H POC Glucose 280 H 257 H Lactic Acid Calcium 8.3 L TIBC Ferritin Lactate Dehydrogenase Vitamin B12 Crossmatch 08/15/16 08/16/16 08/16/16 23:40 05:25 07:20 WBC RBC Hgb Hct RDW Lymph % (Auto) Leon % (Auto) Leon # Seg Neutrophils % Seg Neuts % (Manual) Lymphocytes % (Manual) Monocytes % (Manual) Seg Neutrophils # Seg Neutrophils # Man Monocytes # (Manual) Eosinophils # (Manual) D-Dimer POC ABG pCO2 POC ABG pO2 Sodium Potassium Chloride Carbon Dioxide BUN Creatinine Glucose POC Glucose 179 H 140 H 147 H Lactic Acid Calcium TIBC Ferritin Lactate Dehydrogenase Vitamin B12 Crossmatch 08/16/16 08/16/16 08/16/16 09:20 09:20 11:28 WBC 35.1 H RBC 2.78 L Hgb 7.9 L Hct 24.7 L RDW 18.5 H Lymph % (Auto) Leon % (Auto) Leon # Seg Neutrophils % Seg Neuts % (Manual) Lymphocytes % (Manual) Monocytes % (Manual) Seg Neutrophils # Seg Neutrophils # Man Monocytes # (Manual) Eosinophils # (Manual) D-Dimer POC ABG pCO2 POC ABG pO2 Sodium 136 L Potassium 3.5 L Chloride Carbon Dioxide 17 L BUN 62 H Creatinine 3.3 H Glucose 128 H POC Glucose 150 H Lactic Acid Calcium 7.7 L TIBC Ferritin Lactate Dehydrogenase Vitamin B12 Crossmatch 08/16/16 08/16/16 08/17/16 15:39 23:45 05:03 WBC RBC Hgb Hct RDW Lymph % (Auto) Leon % (Auto) Leon # Seg Neutrophils % Seg Neuts % (Manual) Lymphocytes % (Manual) Monocytes % (Manual) Seg Neutrophils # Seg Neutrophils # Man Monocytes # (Manual) Eosinophils # (Manual) D-Dimer POC ABG pCO2 POC ABG pO2 Sodium Potassium Chloride Carbon Dioxide BUN Creatinine Glucose POC Glucose 106 H 156 H 287 H Lactic Acid Calcium TIBC Ferritin Lactate Dehydrogenase Vitamin B12 Crossmatch 08/17/16 08/17/16 08/17/16 08:40 08:40 12:11 WBC 37.0 H RBC 2.91 L Hgb 8.3 L Hct 25.8 L RDW 18.5 H Lymph % (Auto) Leon % (Auto) Leon # Seg Neutrophils % Seg Neuts % (Manual) Lymphocytes % (Manual) Monocytes % (Manual) Seg Neutrophils # Seg Neutrophils # Man Monocytes # (Manual) Eosinophils # (Manual) D-Dimer POC ABG pCO2 POC ABG pO2 Sodium 136 L Potassium Chloride 96.0 L Carbon Dioxide 16 L BUN 78 H Creatinine 4.0 H Glucose 330 H POC Glucose 345 H Lactic Acid Calcium 8.3 L TIBC Ferritin Lactate Dehydrogenase Vitamin B12 Crossmatch 08/17/16 08/17/16 08/17/16 15:34 17:40 20:07 WBC RBC Hgb Hct RDW Lymph % (Auto) Leon % (Auto) Leon # Seg Neutrophils % Seg Neuts % (Manual) Lymphocytes % (Manual) Monocytes % (Manual) Seg Neutrophils # Seg Neutrophils # Man Monocytes # (Manual) Eosinophils # (Manual) D-Dimer POC ABG pCO2 POC ABG pO2 Sodium Potassium Chloride Carbon Dioxide BUN Creatinine Glucose POC Glucose < 40 L 403 H 439 H Lactic Acid Calcium TIBC Ferritin Lactate Dehydrogenase Vitamin B12 Crossmatch 08/18/16 08/18/16 08/18/16 00:16 05:03 12:34 WBC RBC Hgb Hct RDW Lymph % (Auto) Leon % (Auto) Leon # Seg Neutrophils % Seg Neuts % (Manual) Lymphocytes % (Manual) Monocytes % (Manual) Seg Neutrophils # Seg Neutrophils # Man Monocytes # (Manual) Eosinophils # (Manual) D-Dimer POC ABG pCO2 POC ABG pO2 Sodium Potassium Chloride Carbon Dioxide BUN Creatinine Glucose POC Glucose 457 H 388 H 313 H Lactic Acid Calcium TIBC Ferritin Lactate Dehydrogenase Vitamin B12 Crossmatch 08/18/16 08/18/16 08/19/16 13:16 17:50 02:14 WBC RBC Hgb Hct RDW Lymph % (Auto) Leon % (Auto) Leon # Seg Neutrophils % Seg Neuts % (Manual) Lymphocytes % (Manual) Monocytes % (Manual) Seg Neutrophils # Seg Neutrophils # Man Monocytes # (Manual) Eosinophils # (Manual) D-Dimer POC ABG pCO2 POC ABG pO2 Sodium Potassium Chloride Carbon Dioxide 15 L BUN 100 H Creatinine 4.5 H Glucose 286 H POC Glucose 195 H 118 H Lactic Acid Calcium 8.3 L TIBC Ferritin Lactate Dehydrogenase Vitamin B12 Crossmatch 08/19/16 08/19/16 08/19/16 12:23 12:23 17:35 WBC 30.9 H RBC 3.45 L Hgb 9.7 L Hct RDW 18.6 H Lymph % (Auto) Leon % (Auto) Leon # Seg Neutrophils % Seg Neuts % (Manual) 89.5 H Lymphocytes % (Manual) 6.0 L Monocytes % (Manual) Seg Neutrophils # Seg Neutrophils # Man 27.7 H Monocytes # (Manual) Eosinophils # (Manual) D-Dimer POC ABG pCO2 POC ABG pO2 Sodium Potassium Chloride Carbon Dioxide 16 L BUN 116 H Creatinine 5.0 H Glucose 102 H POC Glucose 181 H Lactic Acid Calcium TIBC Ferritin Lactate Dehydrogenase Vitamin B12 Crossmatch 08/19/16 08/20/16 08/20/16 23:56 06:03 06:31 WBC RBC Hgb Hct RDW Lymph % (Auto) Leon % (Auto) Leon # Seg Neutrophils % Seg Neuts % (Manual) Lymphocytes % (Manual) Monocytes % (Manual) Seg Neutrophils # Seg Neutrophils # Man Monocytes # (Manual) Eosinophils # (Manual) D-Dimer POC ABG pCO2 POC ABG pO2 Sodium Potassium Chloride Carbon Dioxide BUN Creatinine Glucose POC Glucose 239 H 278 H 286 H Lactic Acid Calcium TIBC Ferritin Lactate Dehydrogenase Vitamin B12 Crossmatch 08/20/16 08/20/16 08/20/16 07:55 07:55 12:53 WBC 28.6 H RBC 3.45 L Hgb 9.7 L Hct RDW 18.7 H Lymph % (Auto) Leon % (Auto) Leon # Seg Neutrophils % Seg Neuts % (Manual) 93.0 H Lymphocytes % (Manual) 5.5 L Monocytes % (Manual) Seg Neutrophils # Seg Neutrophils # Man 26.6 H Monocytes # (Manual) Eosinophils # (Manual) D-Dimer POC ABG pCO2 POC ABG pO2 Sodium Potassium Chloride Carbon Dioxide 15 L BUN 134 H Creatinine 5.1 H Glucose 284 H POC Glucose 242 H Lactic Acid Calcium 8.1 L TIBC Ferritin Lactate Dehydrogenase Vitamin B12 Crossmatch 08/21/16 08/21/16 08/21/16 00:32 04:00 11:55 WBC RBC Hgb Hct RDW Lymph % (Auto) Leon % (Auto) Leon # Seg Neutrophils % Seg Neuts % (Manual) Lymphocytes % (Manual) Monocytes % (Manual) Seg Neutrophils # Seg Neutrophils # Man Monocytes # (Manual) Eosinophils # (Manual) D-Dimer POC ABG pCO2 POC ABG pO2 Sodium Potassium Chloride 96.2 L Carbon Dioxide 18 L BUN 95 H Creatinine 3.6 H Glucose 208 H POC Glucose 210 H 316 H Lactic Acid Calcium 8.0 L TIBC Ferritin Lactate Dehydrogenase Vitamin B12 Crossmatch 08/21/16 08/21/16 08/22/16 21:20 Unknown 00:51 WBC 34.9 H RBC 3.56 L Hgb 10.0 L Hct RDW 18.2 H Lymph % (Auto) Leon % (Auto) Leon # Seg Neutrophils % Seg Neuts % (Manual) 94.0 H Lymphocytes % (Manual) 4.0 L Monocytes % (Manual) Seg Neutrophils # Seg Neutrophils # Man 32.8 H Monocytes # (Manual) Eosinophils # (Manual) D-Dimer POC ABG pCO2 POC ABG pO2 Sodium Potassium Chloride Carbon Dioxide BUN Creatinine Glucose POC Glucose 156 H 208 H Lactic Acid Calcium TIBC Ferritin Lactate Dehydrogenase Vitamin B12 Crossmatch 08/22/16 08/22/16 08/22/16 05:16 07:05 07:05 WBC 29.9 H RBC 2.98 L Hgb 8.7 L Hct 26.7 L RDW 18.3 H Lymph % (Auto) Leon % (Auto) Leon # Seg Neutrophils % Seg Neuts % (Manual) 73.0 H Lymphocytes % (Manual) Monocytes % (Manual) 10.0 H Seg Neutrophils # Seg Neutrophils # Man 21.8 H Monocytes # (Manual) 3.0 H Eosinophils # (Manual) D-Dimer POC ABG pCO2 POC ABG pO2 Sodium Potassium 3.2 L D Chloride Carbon Dioxide BUN 60 H Creatinine 3.1 H Glucose 213 H POC Glucose 218 H Lactic Acid Calcium 7.6 L TIBC Ferritin Lactate Dehydrogenase Vitamin B12 Crossmatch 08/22/16 08/22/16 08/22/16 12:23 18:15 23:57 WBC RBC Hgb Hct RDW Lymph % (Auto) Leon % (Auto) Leon # Seg Neutrophils % Seg Neuts % (Manual) Lymphocytes % (Manual) Monocytes % (Manual) Seg Neutrophils # Seg Neutrophils # Man Monocytes # (Manual) Eosinophils # (Manual) D-Dimer POC ABG pCO2 POC ABG pO2 Sodium Potassium Chloride Carbon Dioxide BUN Creatinine Glucose POC Glucose 165 H 64 L 55 L Lactic Acid Calcium TIBC Ferritin Lactate Dehydrogenase Vitamin B12 Crossmatch 08/23/16 08/23/16 08/23/16 05:42 05:42 11:48 WBC 34.2 H RBC 3.11 L Hgb 8.9 L Hct 27.8 L RDW 18.4 H Lymph % (Auto) Leon % (Auto) Leon # Seg Neutrophils % Seg Neuts % (Manual) 84.0 H Lymphocytes % (Manual) 11.0 L Monocytes % (Manual) Seg Neutrophils # Seg Neutrophils # Man 28.7 H Monocytes # (Manual) 1.0 H Eosinophils # (Manual) D-Dimer POC ABG pCO2 POC ABG pO2 Sodium Potassium 3.2 L Chloride Carbon Dioxide BUN 70 H Creatinine 3.6 H Glucose 45 L POC Glucose 179 H Lactic Acid Calcium 8.1 L TIBC Ferritin Lactate Dehydrogenase Vitamin B12 Crossmatch 08/23/16 08/23/16 08/24/16 18:50 23:46 05:49 WBC 27.0 H RBC 2.79 L Hgb 7.9 L Hct 25.2 L RDW 18.4 H Lymph % (Auto) Leon % (Auto) Leon # Seg Neutrophils % Seg Neuts % (Manual) 84.0 H Lymphocytes % (Manual) 7.5 L Monocytes % (Manual) Seg Neutrophils # Seg Neutrophils # Man 22.7 H Monocytes # (Manual) 1.8 H Eosinophils # (Manual) D-Dimer POC ABG pCO2 POC ABG pO2 Sodium Potassium Chloride Carbon Dioxide BUN Creatinine Glucose POC Glucose 191 H 172 H Lactic Acid Calcium TIBC Ferritin Lactate Dehydrogenase Vitamin B12 Crossmatch 08/24/16 08/24/16 08/25/16 05:49 12:21 00:23 WBC RBC Hgb Hct RDW Lymph % (Auto) Leon % (Auto) Leon # Seg Neutrophils % Seg Neuts % (Manual) Lymphocytes % (Manual) Monocytes % (Manual) Seg Neutrophils # Seg Neutrophils # Man Monocytes # (Manual) Eosinophils # (Manual) D-Dimer POC ABG pCO2 POC ABG pO2 Sodium Potassium 3.3 L Chloride Carbon Dioxide BUN 64 H Creatinine 3.1 H Glucose 183 H POC Glucose 239 H 147 H Lactic Acid Calcium 8.2 L TIBC Ferritin Lactate Dehydrogenase Vitamin B12 Crossmatch 08/25/16 08/25/16 08/25/16 04:36 08:00 08:00 WBC 21.7 H RBC 2.56 L Hgb 7.5 L Hct 23.3 L RDW 19.1 H Lymph % (Auto) Leon % (Auto) Leon # Seg Neutrophils % Seg Neuts % (Manual) 77.0 H Lymphocytes % (Manual) 9.0 L Monocytes % (Manual) 11.0 H Seg Neutrophils # Seg Neutrophils # Man 16.7 H Monocytes # (Manual) 2.4 H Eosinophils # (Manual) 0.7 H D-Dimer POC ABG pCO2 POC ABG pO2 Sodium Potassium 3.4 L Chloride 95.6 L Carbon Dioxide BUN 77 H Creatinine 4.1 H Glucose POC Glucose 128 H Lactic Acid Calcium 8.1 L TIBC Ferritin Lactate Dehydrogenase Vitamin B12 Crossmatch 08/25/16 08/25/16 08/25/16 16:49 20:08 20:17 WBC RBC Hgb Hct RDW Lymph % (Auto) Leon % (Auto) Leon # Seg Neutrophils % Seg Neuts % (Manual) Lymphocytes % (Manual) Monocytes % (Manual) Seg Neutrophils # Seg Neutrophils # Man Monocytes # (Manual) Eosinophils # (Manual) D-Dimer POC ABG pCO2 POC ABG pO2 Sodium Potassium Chloride Carbon Dioxide BUN Creatinine Glucose POC Glucose 62 L 54 L 207 H Lactic Acid Calcium TIBC Ferritin Lactate Dehydrogenase Vitamin B12 Crossmatch 08/26/16 08/26/16 08:00 08:00 WBC 19.2 H RBC 2.72 L Hgb 8.0 L Hct 24.7 L RDW 19.5 H Lymph % (Auto) 10.3 L Leon % (Auto) 11.6 H Leon # 2.2 H Seg Neutrophils % 77.1 H Seg Neuts % (Manual) Lymphocytes % (Manual) Monocytes % (Manual) Seg Neutrophils # 14.8 H Seg Neutrophils # Man Monocytes # (Manual) Eosinophils # (Manual) D-Dimer POC ABG pCO2 POC ABG pO2 Sodium Potassium 3.5 L Chloride Carbon Dioxide BUN 63 H Creatinine 3.1 H Glucose POC Glucose Lactic Acid Calcium TIBC Ferritin Lactate Dehydrogenase Vitamin B12 Crossmatch Allied health notes reviewed: nursing
--- NOTE | 2016-08-26 14:39 | Progress Note ---
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 Admitting blood cultures are grew VRE faecium & ESBL Klebsiella. Problem list: 1. Polymicrobial bacteremia and sepsis -08/16 blood cultures were still positive for VRE faecium -08/11 blood cultures with 4/4 bottles with ESBL Klebsiella pneumoniae and Vancomycin resistant Enterococcus faecium -Previous permacath source (removed 08/15) -08/19; 08/23 blood cultures sterile 2. Left chest wall permacath infection -Status post removal 08/15 -Tip culture grew Proteus mirabilis and VRE faecium 3. C. diff. infection -Toxin assay positive 08/13 -Diarrhea improved -Now on enteral vancomycin 4. Leukocytosis -Marked elevation to 51,000 on admission -Multifactorial with bacteremia & C diff infection -Slowly trending downward. 5. Presacral pressure sore -Uninfected at present 6. End-stage renal failure -Left chest PermCath - removal 08/15 7. Status post right hemispheral stroke -Left hemiplegia 8. Lactic acidosis -Secondary to #1 -Resolved 8. Type 2 DM PLAN: 1. Continue Meropenem versus the ESBL Klebsiella blood isolate 2. Continue daptomycin versus the VRE 3. Continue enteral vancomycin vs C diff infection 4. Glycemic control as per the primary team 5. Continue C. difficile & VRE isolation precautions Subjective Date of service: 08/26/16 Principal diagnosis: Polymicrobial bacteremia and sepsis; C. difficile infection Interval history: Barely arousable to tactile stimulation. Objective - Exam Narrative Exam: GENERAL: Well-developed, chronically ill-appearing female . Patient appears to be in no distress. Patient is in restraints HEENT: Normocephalic atraumatic. NECK: Supple. No enlargement of the thyroid gland. No significant cervical lymphadenopathy. No jugular venous distention at 30. LUNGS: Clear with no adventitious sounds. CHEST: Previous left vas cath site with no signs of infection. Not tender to palpation and no drainage visible. HEART: Regular rate. S1 and S2 are normal. There are no gallops, clicks or rubs heard. II/ JOSEPHINE heard best over the LUSB. No diastolic murmur. ABDOMEN: Soft and nontender. Liver and spleen are not palpably enlarged or tender. No palpable masses. Bowel sounds are normoactive. PEG site is clean with no signs of infection. Flexi seal in place : Rico catheter in place with yellow urine EXTREMITIES: No rash, peripheral lymphadenopathy, clubbing or edema. Right femoral vas cath in place with no signs of infection on exam. Right arm PICC line in place SKIN: Dressings noted to the feet bilat that are clean and dry. these are not removed. Previous Stage II sacral pressure sore with no signs of infection are not seen today. NEUROLOGIC: Left hemiplegia. Minimally arousable. - Constitutional Vitals: Vital Signs Temp Pulse Resp BP Pulse Ox 98.5 F 117 H 20 130/70 100 08/26/16 12:00 08/26/16 12:00 08/26/16 12:00 08/26/16 12:00 08/26/16 10:00 Temperature -Last 24 Hours Temperature 98.5 F Temperature 98.3 F Temperature 98.5 F Temperature 98.5 F Temperature 98.5 F Temperature 98.3 F Temperature 97.8 F - Labs CBC & Chem 7: 08/26/16 08:00 08/26/16 08:00 Labs: Abnormal lab results 08/25/16 08/25/16 08/25/16 Range/Units 16:49 20:08 20:17 WBC (4.5-11.0) K/mm3 RBC (3.65-5.03) M/mm3 Hgb (10.1-14.3) gm/dl Hct (30.3-42.9) % RDW (13.2-15.2) % Lymph % (Auto) (13.4-35.0) % Allen % (Auto) (0.0-7.3) % Allen # (0.0-0.8) K/mm3 Seg Neutrophils % (40.0-70.0) % Seg Neutrophils # (1.8-7.7) K/mm3 Potassium (3.6-5.0) mmol/L BUN (7-17) mg/dL Creatinine (0.7-1.2) mg/dL POC Glucose 62 L 54 L 207 H (70-105) 08/26/16 08/26/16 Range/Units 08:00 08:00 WBC 19.2 H (4.5-11.0) K/mm3 RBC 2.72 L (3.65-5.03) M/mm3 Hgb 8.0 L (10.1-14.3) gm/dl Hct 24.7 L (30.3-42.9) % RDW 19.5 H (13.2-15.2) % Lymph % (Auto) 10.3 L (13.4-35.0) % Allen % (Auto) 11.6 H (0.0-7.3) % Allen # 2.2 H (0.0-0.8) K/mm3 Seg Neutrophils % 77.1 H (40.0-70.0) % Seg Neutrophils # 14.8 H (1.8-7.7) K/mm3 Potassium 3.5 L (3.6-5.0) mmol/L BUN 63 H (7-17) mg/dL Creatinine 3.1 H (0.7-1.2) mg/dL POC Glucose (70-105)
[2016-08-27] MEDS: VANCOMYCIN PO SCH ×4 (00:41→18:17)
[2016-08-27] MEDS: NOVOLOG SUB-Q SCH ×6 (01:51→18:17)
[2016-08-27 07:37] LABS: Hematocrit 29.5 % (30.3-42.9); Hemoglobin 9.1 gm/dl (10.1-14.3); Mean Corpuscular HGB Conc 31 % (30-34); Mean Corpuscular Hemoglobin 29 pg (28-32); Mean Corpuscular Volume 93 fl (79-97); Red Blood Count 3.18 M/mm3 (3.65-5.03); Red Cell Distribution Width 19.7 % (13.2-15.2)
[2016-08-27 07:41] LABS: Platelet Count 310 K/mm3 (140-440); White Blood Count 21.4 K/mm3 (4.5-11.0)
[2016-08-27 07:47] LABS: Calcium 8.2 mg/dL (8.4-10.2); Chloride 99.1 mmol/L (98-107)
[2016-08-27] MEDS: DUONEB 0.5 MG-3 MG/3 ML SOLN IH SCH ×3 (08:28→19:31)
[2016-08-27 08:32] LABS: Basophils % (Manual) 0 % (0.0-1.8); Blastocytes % (Manual) 0 %
[2016-08-27 08:33] LABS: Eosinophils % (Manual) 0 % (0.0-4.3)
[2016-08-27 08:34] LABS: Anisocytosis 1+; Hypochromasia Few
[2016-08-27 08:35] LABS: Diff Status Complete
--- NOTE | 2016-08-27 09:05 | Progress Note ---
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 Admitting blood cultures are grew VRE faecium & ESBL Klebsiella. Problem list: 1. Polymicrobial bacteremia and sepsis -08/16 blood cultures were still positive for VRE faecium -08/11 blood cultures with 4/4 bottles with ESBL Klebsiella pneumoniae and Vancomycin resistant Enterococcus faecium -Previous permacath source (removed 08/15) -08/19; 08/23 blood cultures sterile -duration of antibiotics to be counted from negative blood culture on 08/19/16, this makes it day # 8 2. Left chest wall permacath infection -Status post removal 08/15 -Tip culture grew Proteus mirabilis and VRE faecium 3. C. diff. infection -Toxin assay positive 08/13 -Diarrhea improved -on po vancomycin 4. Leukocytosis -Marked elevation to 51,000 on admission -Multifactorial with bacteremia & C diff infection -Slowly trending downward. 5. Presacral pressure sore -Uninfected at present 6. End-stage renal failure -Left chest PermCath - removal 08/15 7. Status post right hemispheral stroke -Left hemiplegia 8. Lactic acidosis -Secondary to #1 -Resolved PLAN: 1. Continue Meropenem for ESBL Klebsiella, day # 8 counting from negative blood cultures 2. Continue daptomycin for VRE, day number 8 3. Continue enteral vancomycin vs C diff infection 4. Glycemic control as per the primary team 5. Continue C. difficile & VRE isolation precautions Subjective Date of service: 08/27/16 Principal diagnosis: Polymicrobial bacteremia and sepsis; C. difficile infection Interval history: Patient seen in bed comfortable, she remains confused. She did not open her eyes to verbal stimuli Objective - Constitutional Vitals: Selected Entries 08/27/16 08:00 Temperature 98.2 F Pulse Rate [ 100 H Apical] Respiratory 20 Rate O2 Sat by Pulse 100 Oximetry Blood Pressure 118/72 [Right Arm] Blood Pressure 87 Mean [Right Arm ] General appearance: Present: no acute distress, well-nourished, obese - EENT Eyes: no scleral icterus, no conjunctival injection ENT: hearing intact, edentulous Ears: bilateral: normal - Neck Neck: no enlarged thyroid, no masses or JVD - Respiratory Respiratory effort: normal Respiratory: bilateral: CTA (clear anteriorly) - Breasts Breasts: deferred - Cardiovascular Rhythm: regular Heart Sounds: Present: S1 & S2 Extremity abnormal: edema - Gastrointestinal General gastrointestinal: Present: soft, non-tender, normal bowel sounds - Genitourinary Female genitourinary: deferred - Musculoskeletal Musculoskeletal: left sided weakness - Psychiatric Psychiatric: depressed - Labs CBC & Chem 7: 08/27/16 06:09 08/27/16 06:09 Labs: Microbiology 08/16/16 10:42 Peripheral/Venous Blood Culture - Final Enterococcus Faecium 08/16/16 10:28 Peripheral/Venous Blood Culture - Final Enterococcus Faecium 08/15/16 Unknown Vascular Cath Catheter Tip Culture - Final Proteus Mirabilis Enterococcus Faecium 08/23/16 14:46 Peripheral/Venous Blood Culture - Preliminary NO GROWTH AFTER 72 HOURS 08/23/16 11:18 Peripheral/Venous Blood Culture - Preliminary NO GROWTH AFTER 72 HOURS Laboratory Tests 08/26/16 08/27/16 08/27/16 08:00 06:09 06:09 WBC 19.2 H 21.4 H Plt Count 310 Creatinine 3.5 H
--- NOTE | 2016-08-27 09:10 | Progress Note ---
Assessment and Plan Impression: * ESRD * Sepsis * Gram neg Bacteremia * Sacral decubiti * DM type 2 * HTN * Anemia in ESRD Plan: * abx per ID * 08/19 cultures no growth * renal diet * strict i/os * avoid nephrotoxins * daily lytes * dailysis tthsaat Subjective Date of service: 08/27/16 Principal diagnosis: Polymicrobial bacteremia and sepsis; C. difficile infection Interval history: resting well in bed today Objective - Exam Narrative Exam: General appearance: Present: no acute distress - EENT Eyes: Present: PERRL, EOM intact ENT: hearing intact, clear oral mucosa, dentition normal - Neck Neck: Present: supple, normal ROM - Respiratory Respiratory effort: normal Respiratory: bilateral: CTA - Cardiovascular Rhythm: regular Heart Sounds: Present: S1 & S2. Absent: gallop, rub - Extremities Extremities: no ischemia, No edema, Full ROM - Abdominal General gastrointestinal: soft, non-tender, non-distended, normal bowel sounds - Integumentary Integumentary: Present: clear, warm, dry - Neurologic Neurologic: CNII-XII intact, moves all extremities, other (confused) - Vital Signs Vital signs: Vital Signs - 12hr 08/26/16 08/27/16 08/27/16 21:14 01:08 05:48 Temperature 97.6 F 98.6 F Pulse Rate 105 H Pulse Rate [ 110 H 111 H Apical] Respiratory 20 20 18 Rate Blood Pressure 110/68 145/68 [Right Arm] O2 Sat by Pulse 97 99 99 Oximetry 08/27/16 08:00 Temperature 98.2 F Pulse Rate Pulse Rate [ 100 H Apical] Respiratory 20 Rate Blood Pressure 118/72 [Right Arm] O2 Sat by Pulse 100 Oximetry - Lab 08/27/16 06:09 08/27/16 06:09 Most recent lab results Calcium 8.2 mg/dL (8.4-10.2) L 08/27/16 06:09 Magnesium 2.2 mg/dL (1.7-2.3) 08/11/16 15:28
[2016-08-27] MEDS: LEVEMIR SUB-Q SCH (09:58)
[2016-08-27] MEDS: HEPARIN SUB-Q SCH ×2 (09:58→22:39)
[2016-08-27] MEDS: SODIUM BICARBONATE PO SCH ×2 (09:59→22:38)
[2016-08-27] MEDS: PEPCID PO SCH (09:59)
[2016-08-27] MEDS: KEPPRA PO SCH ×2 (09:59→22:38)
[2016-08-27] MEDS: CUBICIN IV SCH (11:40)
[2016-08-27] MEDS: NACL 0.9% IV SCH (11:40)
--- NOTE | 2016-08-27 11:42 | Progress Note ---
Assessment and Plan Assessment and plan: -- Sepsis secondary to polymicrobial bacteremia and multiple antibiotics, Continue Meropenem : Positive blood cultures Klebsiella ESBL Daptomycin : Positive VRE Oral vancomycin : C. difficile colitis ID following Patient also received 5 days of linezolid 7 days of Flagyl 5 days of vancomycin 3 days of Zosyn --Leukocytosis; Significantly improved from the time of admission from 51K -21K Multifactorial secondary to sepsis, as well as C. difficile colitis Closely monitor --Previous permacath source (removed 08/15) Echocardiogram ejection fraction 45% no thrombus or vegetation repeat blood cultures negative so far -- C. difficile colitis, symptoms significantly improved Continue PO vanco, contact isolation and handwashing -- End-stage renal disease HD schedule , nephrology following --History of CVA with left-sided hemiparesis Supportive care --History of seizure disorder; No new episodes of seizure, continue Keppra, seizure precautions -- Sacral decubitus- Continue wound and supportive care -- Diabetes type 2 Moderate control, Accu-Chek sliding scale coverage and ADA diet and insulin as needed --DVT prophylaxis ; with Lovenox --DC planning per case management possible discharge to SNF when medically stable And cleared by ID History Interval history: Patient seen and evaluated in his room this morning medical records reviewed No new events reported by the nursing staff Patient is chronically ill and sick looking, confused minimally communicative In mild distress Vital signs reviewed. Stable Hospitalist Physical - Constitutional Vitals: Temp Pulse Resp BP Pulse Ox 98.2 F 100 H 20 118/72 100 08/27/16 08:00 08/27/16 08:00 08/27/16 08:00 08/27/16 08:00 08/27/16 08:00 General appearance: Present: no acute distress, well-nourished, obese, other ( chronically ill looking) - EENT Eyes: Present: PERRL, EOM intact - Neck Neck: Present: supple, normal ROM - Respiratory Respiratory effort: normal Respiratory: bilateral: diminished, negative: rales, rhonchi, wheezing - Cardiovascular Rhythm: regular Heart Sounds: Present: S1 & S2 - Extremities Extremities: no ischemia, pulses intact, pulses symmetrical Peripheral Pulses: within normal limits - Abdominal General gastrointestinal: soft, non-tender, non-distended, normal bowel sounds - Integumentary Integumentary: Present: clear, warm - Psychiatric Psychiatric: appropriate mood/affect - Neurologic Neurologic: moves all extremities Results - Labs CBC & Chem 7: 08/27/16 06:09 08/27/16 06:09 Labs: Laboratory Last Values WBC 21.4 K/mm3 (4.5-11.0) H 08/27/16 06:09 RBC 3.18 M/mm3 (3.65-5.03) L 08/27/16 06:09 Hgb 9.1 gm/dl (10.1-14.3) L 08/27/16 06:09 Hct 29.5 % (30.3-42.9) L 08/27/16 06:09 MCV 93 fl (79-97) 08/27/16 06:09 MCH 29 pg (28-32) 08/27/16 06:09 MCHC 31 % (30-34) 08/27/16 06:09 RDW 19.7 % (13.2-15.2) H 08/27/16 06:09 Plt Count 310 K/mm3 (140-440) 08/27/16 06:09 Lymph % (Auto) 10.3 % (13.4-35.0) L 08/26/16 08:00 [place] % (Auto) 11.6 % (0.0-7.3) H 08/26/16 08:00 Eos % (Auto) 0.5 % (0.0-4.3) 08/26/16 08:00 Baso % (Auto) 0.5 % (0.0-1.8) 08/26/16 08:00 Lymph # 2.0 K/mm3 (1.2-5.4) 08/26/16 08:00 [place] # 2.2 K/mm3 (0.0-0.8) H 08/26/16 08:00 Eos # 0.1 K/mm3 (0.0-0.4) 08/26/16 08:00 Baso # 0.1 K/mm3 (0.0-0.1) 08/26/16 08:00 Add Manual Diff Complete 08/27/16 06:09 Total Counted 100 08/27/16 06:09 Seg Neutrophils % 77.1 % (40.0-70.0) H 08/26/16 08:00 Seg Neuts % (Manual) 77.0 % (40.0-70.0) H 08/27/16 06:09 Band Neutrophils % 5.0 % 08/27/16 06:09 Lymphocytes % (Manual) 9.0 % (13.4-35.0) L 08/27/16 06:09 Reactive Lymphs % (Man) 0 % 08/27/16 06:09 Monocytes % (Manual) 9.0 % (0.0-7.3) H 08/27/16 06:09 Eosinophils % (Manual) 0 % (0.0-4.3) 08/27/16 06:09 Basophils % (Manual) 0 % (0.0-1.8) 08/27/16 06:09 Metamyelocytes % 0 % 08/27/16 06:09 Myelocytes % 0 % 08/27/16 06:09 Promyelocytes % 0 % 08/27/16 06:09 Blast Cells % 0 % 08/27/16 06:09 Nucleated RBC % Not Reportable 08/27/16 06:09 Seg Neutrophils # 14.8 K/mm3 (1.8-7.7) H 08/26/16 08:00 Seg Neutrophils # Man 16.5 K/mm3 (1.8-7.7) H 08/27/16 06:09 Band Neutrophils # 1.1 K/mm3 08/27/16 06:09 Lymphocytes # (Manual) 1.9 K/mm3 (1.2-5.4) 08/27/16 06:09 Abs React Lymphs (Man) 0.0 K/mm3 08/27/16 06:09 Monocytes # (Manual) 1.9 K/mm3 (0.0-0.8) H 08/27/16 06:09 Eosinophils # (Manual) 0.0 K/mm3 (0.0-0.4) 08/27/16 06:09 Basophils # (Manual) 0.0 K/mm3 (0.0-0.1) 08/27/16 06:09 Metamyelocytes # 0.0 K/mm3 08/27/16 06:09 Myelocytes # 0.0 K/mm3 08/27/16 06:09 Promyelocytes # 0.0 K/mm3 08/27/16 06:09 Blast Cells # 0.0 K/mm3 08/27/16 06:09 Pathologist Review 12/25/16 12:23 WBC Morphology Not Reportable 08/27/16 06:09 Hypersegmented Neuts Not Reportable 08/27/16 06:09 Hyposegmented Neuts Not Reportable 08/27/16 06:09 Hypogranular Neuts Not Reportable 08/27/16 06:09 Smudge Cells Not Reportable 08/27/16 06:09 Toxic Granulation Not Reportable 08/27/16 06:09 Toxic Vacuolation Not Reportable 08/27/16 06:09 Dohle Bodies Not Reportable 08/27/16 06:09 Pelger-Huet Anomaly Not Reportable 08/27/16 06:09 Quynh Rods Not Reportable 08/27/16 06:09 Platelet Estimate Not Reportable 08/27/16 06:09 Clumped Platelets Not Reportable 08/27/16 06:09 Plt Clumps, EDTA Not Reportable 08/27/16 06:09 Large Platelets Not Reportable 08/27/16 06:09 Giant Platelets Not Reportable 08/27/16 06:09 Platelet Satelliting Not Reportable 08/27/16 06:09 Plt Morphology Comment Not Reportable 08/27/16 06:09 RBC Morphology Not Reportable 08/27/16 06:09 Dimorphic RBCs Not Reportable 08/27/16 06:09 Polychromasia Not Reportable 08/27/16 06:09 Hypochromasia Few 08/27/16 06:09 Poikilocytosis Not Reportable 08/27/16 06:09 Anisocytosis 1+ 08/27/16 06:09 Microcytosis Not Reportable 08/27/16 06:09 Macrocytosis Not Reportable 08/27/16 06:09 Spherocytes Not Reportable 08/27/16 06:09 Pappenheimer Bodies Not Reportable 08/27/16 06:09 Sickle Cells Not Reportable 08/27/16 06:09 Target Cells Not Reportable 08/27/16 06:09 Tear Drop Cells Not Reportable 08/27/16 06:09 Ovalocytes Not Reportable 08/27/16 06:09 Stomatocytes 1+ 08/24/16 05:49 Helmet Cells Not Reportable 08/27/16 06:09 [place] Bodies Not Reportable 08/27/16 06:09 [place] Rings Not Reportable 08/27/16 06:09 David Cells Not Reportable 08/27/16 06:09 Bite Cells Not Reportable 08/27/16 06:09 Crenated Cell Not Reportable 08/27/16 06:09 Elliptocytes Not Reportable 08/27/16 06:09 Acanthocytes (Spur) Not Reportable 08/27/16 06:09 Rouleaux Not Reportable 08/27/16 06:09 Hemoglobin C Crystals Not Reportable 08/27/16 06:09 Schistocytes Not Reportable 08/27/16 06:09 Malaria parasites Not Reportable 08/27/16 06:09 Percent Retic 2.01 % (0.78-2.58) 08/12/16 12:16 [place] Bodies Not Reportable 08/27/16 06:09 Hem Pathologist Commnt No 08/27/16 06:09 D-Dimer 5042.20 ng/mlDDU (0-234) H 08/12/16 16:18 POC ABG pH 7.444 (7.35-7.45) 08/12/16 15:23 POC ABG pCO2 29.4 (35-45) L 08/12/16 15:23 POC ABG pO2 51 (80-105) L 08/12/16 15:23 POC ABG HCO3 20.2 08/12/16 15:23 POC ABG Total CO2 21 08/12/16 15:23 POC ABG O2 Sat 88 08/12/16 15:23 POC ABG Base Excess -4 08/12/16 15:23 FiO2 2 % 08/12/16 15:23 Sodium 143 mmol/L (137-145) 08/26/16 08:00 Potassium 3.5 mmol/L (3.6-5.0) L 08/26/16 08:00 Chloride 99.8 mmol/L (98-107) 08/26/16 08:00 Carbon Dioxide 23 mmol/L (22-30) 08/27/16 06:09 Anion Gap 20 mmol/L 08/26/16 08:00 BUN 77 mg/dL (7-17) H 08/27/16 06:09 Creatinine 3.5 mg/dL (0.7-1.2) H 08/27/16 06:09 Estimated GFR 16 ml/min 08/27/16 06:09 BUN/Creatinine Ratio 22.00 % 08/27/16 06:09 Glucose 127 mg/dL (65-100) H 08/27/16 06:09 POC Glucose 180 (70-105) H 08/27/16 05:57 Lactic Acid 2.0 mmol/L (0.7-2.0) 08/12/16 05:30 Calcium 8.2 mg/dL (8.4-10.2) L 08/27/16 06:09 Magnesium 2.2 mg/dL (1.7-2.3) 08/11/16 15:28 Iron 62 ug/dL (37-170) 08/12/16 12:16 TIBC 101 mcg/dL (250-450) L 08/12/16 12:16 Ferritin 2000.0 ng/mL (13.0-400.0) H 08/12/16 12:16 Total Bilirubin 1.0 mg/dL (0.1-1.2) 08/11/16 15:28 AST 258 units/L (5-40) H 08/11/16 15:28 ALT 201 units/L (7-56) H 08/11/16 15:28 Alkaline Phosphatase 458 units/L (35-129) H 08/11/16 15:28 Ammonia 49.0 umol/L (25-60) 08/15/16 06:00 Lactate Dehydrogenase 276 units/L (91-180) H 08/12/16 12:16 Total Creatine Kinase 172 units/L (30-135) H 08/27/16 06:09 C-Reactive Protein 37.70 mg/dL (0.00-1.30) H 08/11/16 15:28 Total Protein 7.1 g/dL (6.3-8.2) 08/11/16 15:28 Albumin 2.3 g/dL (3.9-5) L 08/11/16 15:28 Albumin/Globulin Ratio 0.5 % 08/11/16 15:28 Vitamin B12 1117 pg/mL (211-911) H 08/12/16 12:16 Folate 18.10 ng/mL (7.3-26.0) 08/12/16 12:16 TSH 1.360 mlU/mL (0.270-4.200) 08/11/16 15:28 Urine Color [place] (Yellow) 08/11/16 15:17 Urine Turbidity Turbid (Clear) 08/11/16 15:17 Urine pH 5.0 (5.0-7.0) 08/11/16 15:17 Ur Specific [place] 1.022 (1.003-1.030) 08/11/16 15:17 Urine Protein >500 mg/dL (Negative) 08/11/16 15:17 Urine Glucose (UA) Neg mg/dL (Negative) 08/11/16 15:17 Urine Ketones Tr mg/dL (Negative) 08/11/16 15:17 Urine Blood Sm (Negative) 08/11/16 15:17 Urine Nitrite Neg (Negative) 08/11/16 15:17 Ur Reducing Substances Not Reportable 08/11/16 15:17 Urine Bilirubin Neg (Negative) 08/11/16 15:17 Urine Ictotest Not Reportable 08/11/16 15:17 Urine Urobilinogen < 2.0 mg/dL (<2.0) 08/11/16 15:17 Ur Leukocyte Esterase Mod (Negative) 08/11/16 15:17 Urine WBC (Auto) > 182.0 /HPF (0.0-6.0) H 08/11/16 15:17 Urine RBC (Auto) 48.0 /HPF (0.0-6.0) 08/11/16 15:17 U Epithel Cells (Auto) 4.0 /HPF (0-13.0) 08/11/16 15:17 Urine Bacteria (Auto) 4+ /HPF (Negative) 08/11/16 15:17 Urine HCG, Qual Negative (Negative) 08/11/16 15:17 Random Vancomycin 13.7 ug/mL (0-40.0) 08/15/16 06:00 Salicylates < 0.3 mg/dL (2.8-20.0) L 08/11/16 15:28 Urine Opiates Screen Presumptive negative 08/11/16 15:17 Urine Methadone Screen Presumptive negative 08/11/16 15:17 Acetaminophen < 15.0 ug/mL (10.0-30.0) 08/11/16 15:28 Ur Barbiturates Screen Presumptive negative 08/11/16 15:17 Ur Phencyclidine Scrn Presumptive negative 08/11/16 15:17 Ur Amphetamines Screen Presumptive negative 08/11/16 15:17 U Benzodiazepines Scrn Presumptive negative 08/11/16 15:17 Urine Cocaine Screen Presumptive negative 08/11/16 15:17 U Marijuana (THC) Screen Presumptive negative 08/11/16 15:17 Drugs of Abuse Note Disclamer 08/11/16 15:17 Plasma/Serum Alcohol < 0.01 gm% (0-0.07) 08/11/16 15:28 Blood Type B POSITIVE 08/11/16 19:45 Antibody Screen Negative 08/11/16 19:45 Crossmatch See Detail 08/11/16 19:45
[2016-08-27] MEDS: MERREM 1,000 MG in NACL 0.9% 100 ML IV SCH (11:51)
--- NOTE | 2016-08-27 14:14 | Progress Note ---
Assessment and Plan Patient awke and resting on 1 litre O2..No acute respiratory distress. O2 satuaration 99% .Patient afebrile. - Patient Problems (1) Sepsis due to Klebsiella Current Visit: Yes Status: Acute Plan to address problem: 08/24/16 Patient is presently on merepenum and vancomycin. 08/27/16 Patient presently on daptomycin and vancomycin. and merepenum. (2) Septic shock Current Visit: Yes Status: Acute Plan to address problem: Improving. Patient is on norepinephrine. Continue present I/V Fluids NSS. Continue present antibiotics. Linozelid, merepenum and metranidazole. Continue Hydrocortizone. 08/19/16 Patient off the norepinephrine. 08/24/16 Patient off the norepinephrine Patient is on merepenum and vancomycin. 08/27/15 Patient presently on daptomycin, vancomycin and merepenum. (3) Clostridium difficile colitis Current Visit: Yes Status: Acute Plan to address problem: Patient is on Metranidazole. Management as per infectious diseases. 08/24/16 Patient off the metranidazole. Management as per infectious diseases. (4) Altered mental status Current Visit: Yes Status: Acute Plan to address problem: Management as per primary care. (5) End stage renal disease Current Visit: Yes Status: Chronic Plan to address problem: Management as per nephrology. (6) Lactic acidosis Current Visit: Yes Status: Acute Plan to address problem: Bicarb is 16, patient compensated. Obtaining blood gases. 08/24/15 Improved. (7) Seizure disorder Current Visit: Yes Status: Chronic Plan to address problem: Patient is on Keppra. Subjective Date of service: 08/27/16 Principal diagnosis: Polymicrobial bacteremia and sepsis; C. difficile infection Interval history: Patient awke and resting on 1 litre O2..No acute respiratory distress. O2 satuaration 99% .Patient afebrile. Objective Vital Signs - 12hr 08/27/16 08/27/16 08/27/16 05:48 08:00 10:00 Temperature 98.6 F 98.2 F Pulse Rate 103 H Pulse Rate [ 111 H 100 H Apical] Respiratory 18 20 Rate Blood Pressure 145/68 118/72 [Right Arm] O2 Sat by Pulse 99 100 Oximetry 08/27/16 12:00 Temperature 99.3 F Pulse Rate Pulse Rate [ 112 H Apical] Respiratory 20 Rate Blood Pressure 142/65 [Right Arm] O2 Sat by Pulse 100 Oximetry Constitutional: no acute distress, other (somnolent) Eyes: non-icteric ENT: oropharynx moist Neck: supple Effort: normal Ascultation: Bilateral: diminished breath sounds, rhonchi (scant in bases) Cardiovascular: regular rate and rhythm Gastrointestinal: normoactive bowel sounds, soft, non-tender, non-distended Integumentary: normal Extremities: no cyanosis, no edema, no ischemia or petechiae, other (dressings to feet) Neurologic: non-focal exam (grossly), pupils equal and round, motor strength normal and Psychiatric: other (unable to assess) CBC and BMP: 08/27/16 06:09 08/27/16 06:09 ABG, PT/INR, D-dimer: ABG POC ABG pH 7.444 (7.35-7.45) 08/12/16 15:23 POC ABG pCO2 29.4 (35-45) L 08/12/16 15:23 POC ABG pO2 51 (80-105) L 08/12/16 15:23 POC ABG HCO3 20.2 08/12/16 15:23 POC ABG Total CO2 21 08/12/16 15:23 POC ABG O2 Sat 88 08/12/16 15:23 PT/INR, D-dimer D-Dimer 5042.20 ng/mlDDU (0-234) H 08/12/16 16:18 Abnormal lab findings: Abnormal Labs 08/11/16 08/11/16 08/12/16 19:45 23:01 02:35 WBC RBC Hgb Hct RDW Lymph % (Auto) [place] % (Auto) [place] # Seg Neutrophils % Seg Neuts % (Manual) Lymphocytes % (Manual) Monocytes % (Manual) Seg Neutrophils # Seg Neutrophils # Man Monocytes # (Manual) Eosinophils # (Manual) D-Dimer POC ABG pCO2 POC ABG pO2 Sodium Potassium Chloride Carbon Dioxide BUN Creatinine Glucose POC Glucose 307 H Lactic Acid 3.5 H* Calcium TIBC Ferritin Lactate Dehydrogenase Total Creatine Kinase Vitamin B12 Crossmatch See Detail 08/12/16 08/12/16 08/12/16 05:30 05:30 11:09 WBC 38.6 H RBC 3.14 L Hgb 8.7 L Hct 28.1 L D RDW 18.3 H Lymph % (Auto) [place] % (Auto) [place] # Seg Neutrophils % Seg Neuts % (Manual) Lymphocytes % (Manual) 9.0 L Monocytes % (Manual) 8.0 H Seg Neutrophils # Seg Neutrophils # Man 16.6 H Monocytes # (Manual) 3.1 H Eosinophils # (Manual) 1.2 H D-Dimer POC ABG pCO2 POC ABG pO2 Sodium 133 L Potassium 3.0 L Chloride 92.4 L Carbon Dioxide 21 L BUN 44 H Creatinine 2.3 H Glucose 270 H POC Glucose 247 H Lactic Acid Calcium 8.2 L TIBC Ferritin Lactate Dehydrogenase Total Creatine Kinase Vitamin B12 Crossmatch 08/12/16 08/12/16 08/12/16 12:16 12:16 12:16 WBC RBC Hgb Hct RDW Lymph % (Auto) [place] % (Auto) [place] # Seg Neutrophils % Seg Neuts % (Manual) Lymphocytes % (Manual) Monocytes % (Manual) Seg Neutrophils # Seg Neutrophils # Man Monocytes # (Manual) Eosinophils # (Manual) D-Dimer POC ABG pCO2 POC ABG pO2 Sodium Potassium Chloride Carbon Dioxide BUN Creatinine Glucose POC Glucose Lactic Acid Calcium TIBC Ferritin 2000.0 H Lactate Dehydrogenase 276 H Total Creatine Kinase Vitamin B12 1117 H Crossmatch 08/12/16 08/12/16 08/12/16 12:16 15:23 16:18 WBC RBC Hgb Hct RDW Lymph % (Auto) [place] % (Auto) [place] # Seg Neutrophils % Seg Neuts % (Manual) Lymphocytes % (Manual) Monocytes % (Manual) Seg Neutrophils # Seg Neutrophils # Man Monocytes # (Manual) Eosinophils # (Manual) D-Dimer 5042.20 H POC ABG pCO2 29.4 L POC ABG pO2 51 L Sodium Potassium Chloride Carbon Dioxide BUN Creatinine Glucose POC Glucose Lactic Acid Calcium TIBC 101 L Ferritin Lactate Dehydrogenase Total Creatine Kinase Vitamin B12 Crossmatch 08/12/16 08/12/16 08/13/16 17:45 23:36 06:58 WBC RBC Hgb Hct RDW Lymph % (Auto) [place] % (Auto) [place] # Seg Neutrophils % Seg Neuts % (Manual) Lymphocytes % (Manual) Monocytes % (Manual) Seg Neutrophils # Seg Neutrophils # Man Monocytes # (Manual) Eosinophils # (Manual) D-Dimer POC ABG pCO2 POC ABG pO2 Sodium Potassium Chloride Carbon Dioxide BUN Creatinine Glucose POC Glucose 196 H 170 H 199 H Lactic Acid Calcium TIBC Ferritin Lactate Dehydrogenase Total Creatine Kinase Vitamin B12 Crossmatch 08/13/16 08/13/16 08/13/16 11:25 16:29 21:10 WBC RBC Hgb Hct RDW Lymph % (Auto) [place] % (Auto) [place] # Seg Neutrophils % Seg Neuts % (Manual) Lymphocytes % (Manual) Monocytes % (Manual) Seg Neutrophils # Seg Neutrophils # Man Monocytes # (Manual) Eosinophils # (Manual) D-Dimer POC ABG pCO2 POC ABG pO2 Sodium Potassium Chloride Carbon Dioxide BUN Creatinine Glucose POC Glucose 267 H 277 H 203 H Lactic Acid Calcium TIBC Ferritin Lactate Dehydrogenase Total Creatine Kinase Vitamin B12 Crossmatch 08/13/16 08/13/16 08/14/16 Unknown Unknown 07:42 WBC 30.0 H RBC 2.75 L Hgb 7.8 L Hct 24.0 L RDW 18.4 H Lymph % (Auto) [place] % (Auto) [place] # Seg Neutrophils % Seg Neuts % (Manual) 75.0 H Lymphocytes % (Manual) 7.0 L Monocytes % (Manual) Seg Neutrophils # Seg Neutrophils # Man 22.5 H Monocytes # (Manual) Eosinophils # (Manual) D-Dimer POC ABG pCO2 POC ABG pO2 Sodium 133 L Potassium 3.4 L Chloride 95.2 L Carbon Dioxide 18 L BUN 58 H Creatinine 2.9 H Glucose 201 H POC Glucose 306 H Lactic Acid Calcium 8.2 L TIBC Ferritin Lactate Dehydrogenase Total Creatine Kinase Vitamin B12 Crossmatch 08/14/16 08/14/16 08/14/16 08:26 08:26 11:19 WBC 28.9 H RBC 2.92 L Hgb 8.2 L Hct 25.9 L RDW 18.8 H Lymph % (Auto) [place] % (Auto) [place] # Seg Neutrophils % Seg Neuts % (Manual) 85.5 H Lymphocytes % (Manual) 4.5 L Monocytes % (Manual) Seg Neutrophils # Seg Neutrophils # Man 24.7 H Monocytes # (Manual) 0.9 H Eosinophils # (Manual) D-Dimer POC ABG pCO2 POC ABG pO2 Sodium Potassium Chloride Carbon Dioxide 15 L BUN 77 H Creatinine 3.5 H Glucose 289 H POC Glucose 274 H Lactic Acid Calcium 8.3 L TIBC Ferritin Lactate Dehydrogenase Total Creatine Kinase Vitamin B12 Crossmatch 08/14/16 08/14/16 08/15/16 15:56 21:12 06:00 WBC 30.1 H RBC 2.67 L Hgb 7.8 L Hct 23.4 L RDW 18.4 H Lymph % (Auto) [place] % (Auto) [place] # Seg Neutrophils % Seg Neuts % (Manual) 86.0 H Lymphocytes % (Manual) 4.0 L Monocytes % (Manual) Seg Neutrophils # Seg Neutrophils # Man 25.9 H Monocytes # (Manual) 1.8 H Eosinophils # (Manual) D-Dimer POC ABG pCO2 POC ABG pO2 Sodium Potassium Chloride Carbon Dioxide BUN Creatinine Glucose POC Glucose 284 H 357 H Lactic Acid Calcium TIBC Ferritin Lactate Dehydrogenase Total Creatine Kinase Vitamin B12 Crossmatch 08/15/16 08/15/16 08/15/16 06:00 11:17 16:43 WBC RBC Hgb Hct RDW Lymph % (Auto) [place] % (Auto) [place] # Seg Neutrophils % Seg Neuts % (Manual) Lymphocytes % (Manual) Monocytes % (Manual) Seg Neutrophils # Seg Neutrophils # Man Monocytes # (Manual) Eosinophils # (Manual) D-Dimer POC ABG pCO2 POC ABG pO2 Sodium Potassium 3.5 L Chloride 96.6 L Carbon Dioxide 21 L BUN 51 H Creatinine 2.6 H Glucose 214 H POC Glucose 280 H 257 H Lactic Acid Calcium 8.3 L TIBC Ferritin Lactate Dehydrogenase Total Creatine Kinase Vitamin B12 Crossmatch 08/15/16 08/16/16 08/16/16 23:40 05:25 07:20 WBC RBC Hgb Hct RDW Lymph % (Auto) [place] % (Auto) [place] # Seg Neutrophils % Seg Neuts % (Manual) Lymphocytes % (Manual) Monocytes % (Manual) Seg Neutrophils # Seg Neutrophils # Man Monocytes # (Manual) Eosinophils # (Manual) D-Dimer POC ABG pCO2 POC ABG pO2 Sodium Potassium Chloride Carbon Dioxide BUN Creatinine Glucose POC Glucose 179 H 140 H 147 H Lactic Acid Calcium TIBC Ferritin Lactate Dehydrogenase Total Creatine Kinase Vitamin B12 Crossmatch 08/16/16 08/16/16 08/16/16 09:20 09:20 11:28 WBC 35.1 H RBC 2.78 L Hgb 7.9 L Hct 24.7 L RDW 18.5 H Lymph % (Auto) [place] % (Auto) [place] # Seg Neutrophils % Seg Neuts % (Manual) Lymphocytes % (Manual) Monocytes % (Manual) Seg Neutrophils # Seg Neutrophils # Man Monocytes # (Manual) Eosinophils # (Manual) D-Dimer POC ABG pCO2 POC ABG pO2 Sodium 136 L Potassium 3.5 L Chloride Carbon Dioxide 17 L BUN 62 H Creatinine 3.3 H Glucose 128 H POC Glucose 150 H Lactic Acid Calcium 7.7 L TIBC Ferritin Lactate Dehydrogenase Total Creatine Kinase Vitamin B12 Crossmatch 08/16/16 08/16/16 08/17/16 15:39 23:45 05:03 WBC RBC Hgb Hct RDW Lymph % (Auto) [place] % (Auto) [place] # Seg Neutrophils % Seg Neuts % (Manual) Lymphocytes % (Manual) Monocytes % (Manual) Seg Neutrophils # Seg Neutrophils # Man Monocytes # (Manual) Eosinophils # (Manual) D-Dimer POC ABG pCO2 POC ABG pO2 Sodium Potassium Chloride Carbon Dioxide BUN Creatinine Glucose POC Glucose 106 H 156 H 287 H Lactic Acid Calcium TIBC Ferritin Lactate Dehydrogenase Total Creatine Kinase Vitamin B12 Crossmatch 08/17/16 08/17/16 08/17/16 08:40 08:40 12:11 WBC 37.0 H RBC 2.91 L Hgb 8.3 L Hct 25.8 L RDW 18.5 H Lymph % (Auto) [place] % (Auto) [place] # Seg Neutrophils % Seg Neuts % (Manual) Lymphocytes % (Manual) Monocytes % (Manual) Seg Neutrophils # Seg Neutrophils # Man Monocytes # (Manual) Eosinophils # (Manual) D-Dimer POC ABG pCO2 POC ABG pO2 Sodium 136 L Potassium Chloride 96.0 L Carbon Dioxide 16 L BUN 78 H Creatinine 4.0 H Glucose 330 H POC Glucose 345 H Lactic Acid Calcium 8.3 L TIBC Ferritin Lactate Dehydrogenase Total Creatine Kinase Vitamin B12 Crossmatch 08/17/16 08/17/16 08/17/16 15:34 17:40 20:07 WBC RBC Hgb Hct RDW Lymph % (Auto) [place] % (Auto) [place] # Seg Neutrophils % Seg Neuts % (Manual) Lymphocytes % (Manual) Monocytes % (Manual) Seg Neutrophils # Seg Neutrophils # Man Monocytes # (Manual) Eosinophils # (Manual) D-Dimer POC ABG pCO2 POC ABG pO2 Sodium Potassium Chloride Carbon Dioxide BUN Creatinine Glucose POC Glucose < 40 L 403 H 439 H Lactic Acid Calcium TIBC Ferritin Lactate Dehydrogenase Total Creatine Kinase Vitamin B12 Crossmatch 08/18/16 08/18/16 08/18/16 00:16 05:03 12:34 WBC RBC Hgb Hct RDW Lymph % (Auto) [place] % (Auto) [place] # Seg Neutrophils % Seg Neuts % (Manual) Lymphocytes % (Manual) Monocytes % (Manual) Seg Neutrophils # Seg Neutrophils # Man Monocytes # (Manual) Eosinophils # (Manual) D-Dimer POC ABG pCO2 POC ABG pO2 Sodium Potassium Chloride Carbon Dioxide BUN Creatinine Glucose POC Glucose 457 H 388 H 313 H Lactic Acid Calcium TIBC Ferritin Lactate Dehydrogenase Total Creatine Kinase Vitamin B12 Crossmatch 08/18/16 08/18/16 08/19/16 13:16 17:50 02:14 WBC RBC Hgb Hct RDW Lymph % (Auto) [place] % (Auto) [place] # Seg Neutrophils % Seg Neuts % (Manual) Lymphocytes % (Manual) Monocytes % (Manual) Seg Neutrophils # Seg Neutrophils # Man Monocytes # (Manual) Eosinophils # (Manual) D-Dimer POC ABG pCO2 POC ABG pO2 Sodium Potassium Chloride Carbon Dioxide 15 L BUN 100 H Creatinine 4.5 H Glucose 286 H POC Glucose 195 H 118 H Lactic Acid Calcium 8.3 L TIBC Ferritin Lactate Dehydrogenase Total Creatine Kinase Vitamin B12 Crossmatch 08/19/16 08/19/16 08/19/16 12:23 12:23 17:35 WBC 30.9 H RBC 3.45 L Hgb 9.7 L Hct RDW 18.6 H Lymph % (Auto) [place] % (Auto) [place] # Seg Neutrophils % Seg Neuts % (Manual) 89.5 H Lymphocytes % (Manual) 6.0 L Monocytes % (Manual) Seg Neutrophils # Seg Neutrophils # Man 27.7 H Monocytes # (Manual) Eosinophils # (Manual) D-Dimer POC ABG pCO2 POC ABG pO2 Sodium Potassium Chloride Carbon Dioxide 16 L BUN 116 H Creatinine 5.0 H Glucose 102 H POC Glucose 181 H Lactic Acid Calcium TIBC Ferritin Lactate Dehydrogenase Total Creatine Kinase Vitamin B12 Crossmatch 08/19/16 08/20/16 08/20/16 23:56 06:03 06:31 WBC RBC Hgb Hct RDW Lymph % (Auto) [place] % (Auto) [place] # Seg Neutrophils % Seg Neuts % (Manual) Lymphocytes % (Manual) Monocytes % (Manual) Seg Neutrophils # Seg Neutrophils # Man Monocytes # (Manual) Eosinophils # (Manual) D-Dimer POC ABG pCO2 POC ABG pO2 Sodium Potassium Chloride Carbon Dioxide BUN Creatinine Glucose POC Glucose 239 H 278 H 286 H Lactic Acid Calcium TIBC Ferritin Lactate Dehydrogenase Total Creatine Kinase Vitamin B12 Crossmatch 08/20/16 08/20/16 08/20/16 07:55 07:55 12:53 WBC 28.6 H RBC 3.45 L Hgb 9.7 L Hct RDW 18.7 H Lymph % (Auto) [place] % (Auto) [place] # Seg Neutrophils % Seg Neuts % (Manual) 93.0 H Lymphocytes % (Manual) 5.5 L Monocytes % (Manual) Seg Neutrophils # Seg Neutrophils # Man 26.6 H Monocytes # (Manual) Eosinophils # (Manual) D-Dimer POC ABG pCO2 POC ABG pO2 Sodium Potassium Chloride Carbon Dioxide 15 L BUN 134 H Creatinine 5.1 H Glucose 284 H POC Glucose 242 H Lactic Acid Calcium 8.1 L TIBC Ferritin Lactate Dehydrogenase Total Creatine Kinase Vitamin B12 Crossmatch 08/21/16 08/21/16 08/21/16 00:32 04:00 11:55 WBC RBC Hgb Hct RDW Lymph % (Auto) [place] % (Auto) [place] # Seg Neutrophils % Seg Neuts % (Manual) Lymphocytes % (Manual) Monocytes % (Manual) Seg Neutrophils # Seg Neutrophils # Man Monocytes # (Manual) Eosinophils # (Manual) D-Dimer POC ABG pCO2 POC ABG pO2 Sodium Potassium Chloride 96.2 L Carbon Dioxide 18 L BUN 95 H Creatinine 3.6 H Glucose 208 H POC Glucose 210 H 316 H Lactic Acid Calcium 8.0 L TIBC Ferritin Lactate Dehydrogenase Total Creatine Kinase Vitamin B12 Crossmatch 08/21/16 08/21/16 08/22/16 21:20 Unknown 00:51 WBC 34.9 H RBC 3.56 L Hgb 10.0 L Hct RDW 18.2 H Lymph % (Auto) [place] % (Auto) [place] # Seg Neutrophils % Seg Neuts % (Manual) 94.0 H Lymphocytes % (Manual) 4.0 L Monocytes % (Manual) Seg Neutrophils # Seg Neutrophils # Man 32.8 H Monocytes # (Manual) Eosinophils # (Manual) D-Dimer POC ABG pCO2 POC ABG pO2 Sodium Potassium Chloride Carbon Dioxide BUN Creatinine Glucose POC Glucose 156 H 208 H Lactic Acid Calcium TIBC Ferritin Lactate Dehydrogenase Total Creatine Kinase Vitamin B12 Crossmatch 08/22/16 08/22/16 08/22/16 05:16 07:05 07:05 WBC 29.9 H RBC 2.98 L Hgb 8.7 L Hct 26.7 L RDW 18.3 H Lymph % (Auto) [place] % (Auto) [place] # Seg Neutrophils % Seg Neuts % (Manual) 73.0 H Lymphocytes % (Manual) Monocytes % (Manual) 10.0 H Seg Neutrophils # Seg Neutrophils # Man 21.8 H Monocytes # (Manual) 3.0 H Eosinophils # (Manual) D-Dimer POC ABG pCO2 POC ABG pO2 Sodium Potassium 3.2 L D Chloride Carbon Dioxide BUN 60 H Creatinine 3.1 H Glucose 213 H POC Glucose 218 H Lactic Acid Calcium 7.6 L TIBC Ferritin Lactate Dehydrogenase Total Creatine Kinase Vitamin B12 Crossmatch 08/22/16 08/22/16 08/22/16 12:23 18:15 23:57 WBC RBC Hgb Hct RDW Lymph % (Auto) [place] % (Auto) [place] # Seg Neutrophils % Seg Neuts % (Manual) Lymphocytes % (Manual) Monocytes % (Manual) Seg Neutrophils # Seg Neutrophils # Man Monocytes # (Manual) Eosinophils # (Manual) D-Dimer POC ABG pCO2 POC ABG pO2 Sodium Potassium Chloride Carbon Dioxide BUN Creatinine Glucose POC Glucose 165 H 64 L 55 L Lactic Acid Calcium TIBC Ferritin Lactate Dehydrogenase Total Creatine Kinase Vitamin B12 Crossmatch 08/23/16 08/23/16 08/23/16 05:42 05:42 11:48 WBC 34.2 H RBC 3.11 L Hgb 8.9 L Hct 27.8 L RDW 18.4 H Lymph % (Auto) [place] % (Auto) [place] # Seg Neutrophils % Seg Neuts % (Manual) 84.0 H Lymphocytes % (Manual) 11.0 L Monocytes % (Manual) Seg Neutrophils # Seg Neutrophils # Man 28.7 H Monocytes # (Manual) 1.0 H Eosinophils # (Manual) D-Dimer POC ABG pCO2 POC ABG pO2 Sodium Potassium 3.2 L Chloride Carbon Dioxide BUN 70 H Creatinine 3.6 H Glucose 45 L POC Glucose 179 H Lactic Acid Calcium 8.1 L TIBC Ferritin Lactate Dehydrogenase Total Creatine Kinase Vitamin B12 Crossmatch 08/23/16 08/23/16 08/24/16 18:50 23:46 05:49 WBC 27.0 H RBC 2.79 L Hgb 7.9 L Hct 25.2 L RDW 18.4 H Lymph % (Auto) [place] % (Auto) [place] # Seg Neutrophils % Seg Neuts % (Manual) 84.0 H Lymphocytes % (Manual) 7.5 L Monocytes % (Manual) Seg Neutrophils # Seg Neutrophils # Man 22.7 H Monocytes # (Manual) 1.8 H Eosinophils # (Manual) D-Dimer POC ABG pCO2 POC ABG pO2 Sodium Potassium Chloride Carbon Dioxide BUN Creatinine Glucose POC Glucose 191 H 172 H Lactic Acid Calcium TIBC Ferritin Lactate Dehydrogenase Total Creatine Kinase Vitamin B12 Crossmatch 08/24/16 08/24/16 08/25/16 05:49 12:21 00:23 WBC RBC Hgb Hct RDW Lymph % (Auto) [place] % (Auto) [place] # Seg Neutrophils % Seg Neuts % (Manual) Lymphocytes % (Manual) Monocytes % (Manual) Seg Neutrophils # Seg Neutrophils # Man Monocytes # (Manual) Eosinophils # (Manual) D-Dimer POC ABG pCO2 POC ABG pO2 Sodium Potassium 3.3 L Chloride Carbon Dioxide BUN 64 H Creatinine 3.1 H Glucose 183 H POC Glucose 239 H 147 H Lactic Acid Calcium 8.2 L TIBC Ferritin Lactate Dehydrogenase Total Creatine Kinase Vitamin B12 Crossmatch 08/25/16 08/25/16 08/25/16 04:36 08:00 08:00 WBC 21.7 H RBC 2.56 L Hgb 7.5 L Hct 23.3 L RDW 19.1 H Lymph % (Auto) [place] % (Auto) [place] # Seg Neutrophils % Seg Neuts % (Manual) 77.0 H Lymphocytes % (Manual) 9.0 L Monocytes % (Manual) 11.0 H Seg Neutrophils # Seg Neutrophils # Man 16.7 H Monocytes # (Manual) 2.4 H Eosinophils # (Manual) 0.7 H D-Dimer POC ABG pCO2 POC ABG pO2 Sodium Potassium 3.4 L Chloride 95.6 L Carbon Dioxide BUN 77 H Creatinine 4.1 H Glucose POC Glucose 128 H Lactic Acid Calcium 8.1 L TIBC Ferritin Lactate Dehydrogenase Total Creatine Kinase Vitamin B12 Crossmatch 08/25/16 08/25/16 08/25/16 16:49 20:08 20:17 WBC RBC Hgb Hct RDW Lymph % (Auto) [place] % (Auto) [place] # Seg Neutrophils % Seg Neuts % (Manual) Lymphocytes % (Manual) Monocytes % (Manual) Seg Neutrophils # Seg Neutrophils # Man Monocytes # (Manual) Eosinophils # (Manual) D-Dimer POC ABG pCO2 POC ABG pO2 Sodium Potassium Chloride Carbon Dioxide BUN Creatinine Glucose POC Glucose 62 L 54 L 207 H Lactic Acid Calcium TIBC Ferritin Lactate Dehydrogenase Total Creatine Kinase Vitamin B12 Crossmatch 08/26/16 08/26/16 08/27/16 08:00 08:00 05:57 WBC 19.2 H RBC 2.72 L Hgb 8.0 L Hct 24.7 L RDW 19.5 H Lymph % (Auto) 10.3 L [place] % (Auto) 11.6 H [place] # 2.2 H Seg Neutrophils % 77.1 H Seg Neuts % (Manual) Lymphocytes % (Manual) Monocytes % (Manual) Seg Neutrophils # 14.8 H Seg Neutrophils # Man Monocytes # (Manual) Eosinophils # (Manual) D-Dimer POC ABG pCO2 POC ABG pO2 Sodium Potassium 3.5 L Chloride Carbon Dioxide BUN 63 H Creatinine 3.1 H Glucose POC Glucose 180 H Lactic Acid Calcium TIBC Ferritin Lactate Dehydrogenase Total Creatine Kinase Vitamin B12 Crossmatch 08/27/16 08/27/16 08/27/16 06:09 06:09 06:09 WBC 21.4 H RBC 3.18 L Hgb 9.1 L Hct 29.5 L RDW 19.7 H Lymph % (Auto) [place] % (Auto) [place] # Seg Neutrophils % Seg Neuts % (Manual) 77.0 H Lymphocytes % (Manual) 9.0 L Monocytes % (Manual) 9.0 H Seg Neutrophils # Seg Neutrophils # Man 16.5 H Monocytes # (Manual) 1.9 H Eosinophils # (Manual) D-Dimer POC ABG pCO2 POC ABG pO2 Sodium Potassium Chloride Carbon Dioxide BUN 77 H Creatinine 3.5 H Glucose 127 H POC Glucose Lactic Acid Calcium 8.2 L TIBC Ferritin Lactate Dehydrogenase Total Creatine Kinase 172 H Vitamin B12 Crossmatch Allied health notes reviewed: nursing
[2016-08-27] MEDS ORDERED: SODIUM BICARBONATE FEEDTUBE PRN (14:16)
[2016-08-27] MEDS ORDERED: PANCREAZE DR 10,500 UNIT FEEDTUBE PRN (14:16)
[2016-08-27] MEDS ORDERED: SIMPLE SYRUP FEEDTUBE PRN ×2 (14:16)
[2016-08-27] MEDS ORDERED: D50W (25GM) IV PRN ×2 (21:47→22:01)
[2016-08-27] MEDS ORDERED: D50W (25GM) IV ONE (22:03)
[2016-08-27] MEDS: SIMPLE SYRUP FEEDTUBE PRN (23:59)
[2016-08-28] MEDS: VANCOMYCIN PO SCH ×4 (00:30→17:31)
[2016-08-28] MEDS: NOVOLOG SUB-Q SCH ×3 (06:24→18:55)
[2016-08-28] MEDS: DUONEB 0.5 MG-3 MG/3 ML SOLN IH SCH ×3 (08:09→21:28)
[2016-08-28] MEDS: HEPARIN SUB-Q SCH ×2 (09:41→22:40)
[2016-08-28] MEDS: SODIUM BICARBONATE PO SCH ×2 (09:41→22:40)
[2016-08-28] MEDS: KEPPRA PO SCH ×2 (09:42→22:40)
[2016-08-28] MEDS: PEPCID PO SCH (09:42)
--- NOTE | 2016-08-28 10:22 | Progress Note ---
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 Admitting blood cultures are grew VRE faecium & ESBL Klebsiella. Problem list: 1. Polymicrobial bacteremia and sepsis -08/16 blood cultures were still positive for VRE faecium -08/11 blood cultures with 4/4 bottles with ESBL Klebsiella pneumoniae and Vancomycin resistant Enterococcus faecium -Previous permacath source (removed 08/15) -08/19 & 08/23 blood cultures sterile 2. Left chest wall permacath infection -Status post removal 08/15 -Tip culture grew Proteus mirabilis and VRE faecium 3. C. diff. infection -Toxin assay positive 08/13 -Diarrhea improved -Now on enteral vancomycin 4. Leukocytosis -Marked elevation to 51,000 on admission -Multifactorial with bacteremia & C diff infection -Slowly trending downward. 5. Presacral pressure sore -Uninfected at present 6. End-stage renal failure -Left chest PermCath - removal 08/15 7. Status post right hemispheral stroke -Left hemiplegia 8. Lactic acidosis -Secondary to #1 -Resolved 8. Type 2 DM PLAN: 1. Continue Meropenem versus the ESBL Klebsiella blood isolate. Plan 2 weeks of therapy after first negative blood cultures: Stop date 09/02 2. Continue daptomycin versus the VRE: Plan 2 weeks of therapy after first negative blood cultures: Stop date 09/02 3. Continue enteral vancomycin vs C diff infection 4. Glycemic control as per the primary team 5. Follow-up on repeat blood cultures which were drawn on 08/23 6. Continue C. difficile & VRE isolation precautions 7. If bacteremic again may need to consider NILSON Arash Bennett MD [facility] Office: [phone] Subjective Date of service: 08/28/16 Principal diagnosis: Polymicrobial bacteremia and sepsis; C. difficile infection Interval history: No obvious complaints. No acute distress. Remains confused but not agitated at present. ROS: not reliable with her confusion. Objective - Exam Narrative Exam: GENERAL: Well-developed, chronically ill-appearing female who is alert and in no acute distress, calling out for the nurse. HEENT: Pupils are equal reactive to light and accommodation. Conjunctiva clear. Bilateral arcus senilis. Oropharynx is normal with no evidence of oral candidiasis or pharyngitis. Patient is edentulous. NECK: Supple. No enlargement of the thyroid gland. No significant cervical lymphadenopathy. No jugular venous distention at 30. LUNGS: Clear with no adventitious sounds. CHEST: Previous left vas cath site with no signs of infection. Not tender to palpation and no drainage visible. HEART: Regular rate. S1 and S2 are normal. There are no gallops, clicks or rubs heard. II/ JOSEPHINE heard best over the LUSB. No diastolic murmur. ABDOMEN: Soft and nontender. Liver and spleen are not palpably enlarged or tender. No palpable masses. Bowel sounds are normoactive. PEG site is clean with no signs of infection. : Not examined today EXTREMITIES: No rash, peripheral lymphadenopathy, clubbing or edema. Right femoral vas cath in place with no signs of infection on exam. SKIN: Dressings noted to the feet bilat that are clean and dry. these are not removed. Previous Stage II sacral pressure sore with no signs of infection are not seen today. NEUROLOGIC: Left hemiplegia. Alert. Oriented to person only. - Constitutional Vitals: Vital Signs Temp Pulse Resp BP Pulse Ox 98.4 F 118 H 18 146/65 99 08/28/16 09:09 08/28/16 09:09 08/28/16 09:09 08/28/16 09:09 08/28/16 08:10 Temperature -Last 24 Hours Temperature 98.4 F Temperature 98.0 F Temperature 98.6 F Temperature 99.1 F Temperature 99.3 F - Labs CBC & Chem 7: 08/27/16 06:09 08/27/16 06:09 Labs: Abnormal lab results Microbiology 08/23/16 14:46 Peripheral/Venous Blood Culture - Preliminary NO GROWTH 08/23/16 11:18 Peripheral/Venous Blood Culture - Preliminary NO GROWTH 08/19/16 16:48 Peripheral/Venous Blood Culture - Preliminary NO GROWTH AFTER 4 DAYS 08/19/16 16:48 Peripheral/Venous Blood Culture - Preliminary NO GROWTH AFTER 4 DAYS 08/16/16 10:42 Peripheral/Venous Blood Culture - 2/2 bottles with Enterococcal faecium (Vancomycin & penicillin resistant) 08/16/16 10:28 Peripheral/Venous Blood Culture - 2/2 bottles with Enterococcal faecium (Vancomycin & penicillin resistant) 08/15/16 Unknown Vascular Cath Catheter Tip Culture Proteus mirabilis (only resistant to quinolones) Vancomycin resistant Enterococcus faecium 08/12/16 11:41 Vascular Cath Blood Culture - Preliminary Klebsiella Pneumoniae (ESBL strain, quinolone resistant, carbapenem sensitive) Enterococcus faecium (Vancomycin resistant) 08/12/16 11:41 Peripheral/Venous Blood Culture - 2/2 bottles with Enterococcus faecium (Vancomycin & penicillin resistant) 08/11/16 18:31 Peripheral/Venous Blood Culture - Preliminary Klebsiella Pneumoniae Enterococcus faecium 08/11/16 18:31 Peripheral/Venous Blood Culture - Preliminary Klebsiella Pneumoniae Enterococcus faecium 08/12/16 16:55 Stool C. difficile DNA Amplification - Positive Imagin/30: Abdominal films: No free air. No evidence of megacolon.
--- NOTE | 2016-08-28 10:45 | Progress Note ---
Assessment and Plan Impression: * ESRD * Sepsis * Gram neg Bacteremia * Sacral decubiti * DM type 2 * HTN * Anemia in ESRD Plan: * abx per ID * 08/19 and 08/23 cultures no growth * renal diet * strict i/os * avoid nephrotoxins * daily lytes * Continue dailysis tthsaat * Patient is currently with a femoral Vas-Cath. Will need that to be converted to a PermCath after cleared by ID Subjective Date of service: 08/28/16 Principal diagnosis: Polymicrobial bacteremia and sepsis; C. difficile infection Interval history: Patient appears comfortable today. Not answering any questions or following commands. Objective - Vital Signs Vital signs: Vital Signs - 12hr 08/28/16 08/28/16 08/28/16 05:56 08:00 08:09 Temperature 98.0 F Pulse Rate [ Left Radial] Pulse Rate [ 122 H 125 H Posterior Bilateral] Pulse Rate [ 114 H Right Radial] Respiratory 22 Rate Respiratory 19 20 Rate [Posterior Bilateral] Blood Pressure 145/70 [Left Arm] O2 Sat by Pulse 100 Oximetry 08/28/16 08/28/16 08:10 09:09 Temperature 98.4 F Pulse Rate [ 118 H Left Radial] Pulse Rate [ Posterior Bilateral] Pulse Rate [ Right Radial] Respiratory 18 Rate Respiratory Rate [Posterior Bilateral] Blood Pressure 146/65 [Left Arm] O2 Sat by Pulse 99 Oximetry - General Appearance General appearance: well-developed, well-nourished, appears stated age EENT: PERRL, mucous membranes moist Neck: no JVD, no thyromegaly, no carotid bruit, supple Respiratory: Present: Clear to Ascultation, Normal Exam Cardiology: regular, normal heart rate, S1S2, no murmurs Gastrointestinal: normal, normoactive bowel sounds, other (PEG tube in place) Integumentary: other (right femoral Vas-Cath in place) - Lab 08/27/16 06:09 08/27/16 06:09 Most recent lab results Calcium 8.2 mg/dL (8.4-10.2) L 08/27/16 06:09 Magnesium 2.2 mg/dL (1.7-2.3) 08/11/16 15:28
--- NOTE | 2016-08-28 14:38 | Progress Note ---
Assessment and Plan Patient sleeping at this time. On 1 litre O2.No acute respiratory distress. O2 satuaration 100% .Patient afebrile. - Patient Problems (1) Sepsis due to Klebsiella Current Visit: Yes Status: Acute Plan to address problem: 08/24/16 Patient is presently on merepenum and vancomycin. 08/27/16 Patient presently on daptomycin and vancomycin. and merepenum. (2) Septic shock Current Visit: Yes Status: Acute Plan to address problem: Improving. Patient is on norepinephrine. Continue present I/V Fluids NSS. Continue present antibiotics. Linozelid, merepenum and metranidazole. Continue Hydrocortizone. 08/19/16 Patient off the norepinephrine. 08/24/16 Patient off the norepinephrine Patient is on merepenum and vancomycin. 08/27/15 Patient presently on daptomycin, vancomycin and merepenum. (3) Clostridium difficile colitis Current Visit: Yes Status: Acute Plan to address problem: Patient is on Metranidazole. Management as per infectious diseases. 08/24/16 Patient off the metranidazole. Management as per infectious diseases. (4) Altered mental status Current Visit: Yes Status: Acute Plan to address problem: Management as per primary care. (5) End stage renal disease Current Visit: Yes Status: Chronic Plan to address problem: Management as per nephrology. (6) Lactic acidosis Current Visit: Yes Status: Acute Plan to address problem: Bicarb is 16, patient compensated. Obtaining blood gases. 08/24/15 Improved. (7) Seizure disorder Current Visit: Yes Status: Chronic Plan to address problem: Patient is on Keppra. Subjective Date of service: 08/28/16 Principal diagnosis: Polymicrobial bacteremia and sepsis; C. difficile infection Interval history: Patient sleeping at this time. on 1 litre O2..No acute respiratory distress. O2 satuaration 100% .Patient afebrile. Objective Vital Signs - 12hr 08/28/16 08/28/16 08/28/16 05:56 08:00 08:09 Temperature 98.0 F Pulse Rate [ Left Radial] Pulse Rate [ 122 H 125 H Posterior Bilateral] Pulse Rate [ 114 H Right Radial] Respiratory 22 Rate Respiratory 19 20 Rate [Posterior Bilateral] Blood Pressure 145/70 [Left Arm] O2 Sat by Pulse 100 Oximetry 08/28/16 08/28/16 08/28/16 08:10 09:09 12:43 Temperature 98.4 F 98.4 F Pulse Rate [ 118 H 114 H Left Radial] Pulse Rate [ Posterior Bilateral] Pulse Rate [ Right Radial] Respiratory 18 18 Rate Respiratory Rate [Posterior Bilateral] Blood Pressure 146/65 134/63 [Left Arm] O2 Sat by Pulse 99 100 Oximetry 08/28/16 13:29 Temperature Pulse Rate [ Left Radial] Pulse Rate [ 115 H Posterior Bilateral] Pulse Rate [ Right Radial] Respiratory Rate Respiratory 18 Rate [Posterior Bilateral] Blood Pressure [Left Arm] O2 Sat by Pulse Oximetry Constitutional: no acute distress, asleep, other (somnolent) Eyes: non-icteric ENT: oropharynx moist Neck: supple Effort: normal Ascultation: Bilateral: diminished breath sounds, rhonchi (scant in bases) Cardiovascular: regular rate and rhythm Gastrointestinal: normoactive bowel sounds, soft, non-tender, non-distended Integumentary: normal Extremities: no cyanosis, no edema, no ischemia or petechiae, other (dressings to feet) Neurologic: non-focal exam (grossly), pupils equal and round, motor strength normal and Psychiatric: other (unable to assess) CBC and BMP: 08/27/16 06:09 08/27/16 06:09 ABG, PT/INR, D-dimer: ABG POC ABG pH 7.444 (7.35-7.45) 08/12/16 15:23 POC ABG pCO2 29.4 (35-45) L 08/12/16 15:23 POC ABG pO2 51 (80-105) L 08/12/16 15:23 POC ABG HCO3 20.2 08/12/16 15:23 POC ABG Total CO2 21 08/12/16 15:23 POC ABG O2 Sat 88 08/12/16 15:23 PT/INR, D-dimer D-Dimer 5042.20 ng/mlDDU (0-234) H 08/12/16 16:18 Abnormal lab findings: Abnormal Labs 08/11/16 08/11/16 08/12/16 19:45 23:01 02:35 WBC RBC Hgb Hct RDW Lymph % (Auto) [place] % (Auto) [place] # Seg Neutrophils % Seg Neuts % (Manual) Lymphocytes % (Manual) Monocytes % (Manual) Seg Neutrophils # Seg Neutrophils # Man Monocytes # (Manual) Eosinophils # (Manual) D-Dimer POC ABG pCO2 POC ABG pO2 Sodium Potassium Chloride Carbon Dioxide BUN Creatinine Glucose POC Glucose 307 H Lactic Acid 3.5 H* Calcium TIBC Ferritin Lactate Dehydrogenase Total Creatine Kinase Vitamin B12 Crossmatch See Detail 08/12/16 08/12/16 08/12/16 05:30 05:30 11:09 WBC 38.6 H RBC 3.14 L Hgb 8.7 L Hct 28.1 L D RDW 18.3 H Lymph % (Auto) [place] % (Auto) [place] # Seg Neutrophils % Seg Neuts % (Manual) Lymphocytes % (Manual) 9.0 L Monocytes % (Manual) 8.0 H Seg Neutrophils # Seg Neutrophils # Man 16.6 H Monocytes # (Manual) 3.1 H Eosinophils # (Manual) 1.2 H D-Dimer POC ABG pCO2 POC ABG pO2 Sodium 133 L Potassium 3.0 L Chloride 92.4 L Carbon Dioxide 21 L BUN 44 H Creatinine 2.3 H Glucose 270 H POC Glucose 247 H Lactic Acid Calcium 8.2 L TIBC Ferritin Lactate Dehydrogenase Total Creatine Kinase Vitamin B12 Crossmatch 08/12/16 08/12/16 08/12/16 12:16 12:16 12:16 WBC RBC Hgb Hct RDW Lymph % (Auto) [place] % (Auto) [place] # Seg Neutrophils % Seg Neuts % (Manual) Lymphocytes % (Manual) Monocytes % (Manual) Seg Neutrophils # Seg Neutrophils # Man Monocytes # (Manual) Eosinophils # (Manual) D-Dimer POC ABG pCO2 POC ABG pO2 Sodium Potassium Chloride Carbon Dioxide BUN Creatinine Glucose POC Glucose Lactic Acid Calcium TIBC Ferritin 2000.0 H Lactate Dehydrogenase 276 H Total Creatine Kinase Vitamin B12 1117 H Crossmatch 08/12/16 08/12/16 08/12/16 12:16 15:23 16:18 WBC RBC Hgb Hct RDW Lymph % (Auto) [place] % (Auto) [place] # Seg Neutrophils % Seg Neuts % (Manual) Lymphocytes % (Manual) Monocytes % (Manual) Seg Neutrophils # Seg Neutrophils # Man Monocytes # (Manual) Eosinophils # (Manual) D-Dimer 5042.20 H POC ABG pCO2 29.4 L POC ABG pO2 51 L Sodium Potassium Chloride Carbon Dioxide BUN Creatinine Glucose POC Glucose Lactic Acid Calcium TIBC 101 L Ferritin Lactate Dehydrogenase Total Creatine Kinase Vitamin B12 Crossmatch 08/12/16 08/12/16 08/13/16 17:45 23:36 06:58 WBC RBC Hgb Hct RDW Lymph % (Auto) [place] % (Auto) [place] # Seg Neutrophils % Seg Neuts % (Manual) Lymphocytes % (Manual) Monocytes % (Manual) Seg Neutrophils # Seg Neutrophils # Man Monocytes # (Manual) Eosinophils # (Manual) D-Dimer POC ABG pCO2 POC ABG pO2 Sodium Potassium Chloride Carbon Dioxide BUN Creatinine Glucose POC Glucose 196 H 170 H 199 H Lactic Acid Calcium TIBC Ferritin Lactate Dehydrogenase Total Creatine Kinase Vitamin B12 Crossmatch 08/13/16 08/13/16 08/13/16 11:25 16:29 21:10 WBC RBC Hgb Hct RDW Lymph % (Auto) [place] % (Auto) [place] # Seg Neutrophils % Seg Neuts % (Manual) Lymphocytes % (Manual) Monocytes % (Manual) Seg Neutrophils # Seg Neutrophils # Man Monocytes # (Manual) Eosinophils # (Manual) D-Dimer POC ABG pCO2 POC ABG pO2 Sodium Potassium Chloride Carbon Dioxide BUN Creatinine Glucose POC Glucose 267 H 277 H 203 H Lactic Acid Calcium TIBC Ferritin Lactate Dehydrogenase Total Creatine Kinase Vitamin B12 Crossmatch 08/13/16 08/13/16 08/14/16 Unknown Unknown 07:42 WBC 30.0 H RBC 2.75 L Hgb 7.8 L Hct 24.0 L RDW 18.4 H Lymph % (Auto) [place] % (Auto) [place] # Seg Neutrophils % Seg Neuts % (Manual) 75.0 H Lymphocytes % (Manual) 7.0 L Monocytes % (Manual) Seg Neutrophils # Seg Neutrophils # Man 22.5 H Monocytes # (Manual) Eosinophils # (Manual) D-Dimer POC ABG pCO2 POC ABG pO2 Sodium 133 L Potassium 3.4 L Chloride 95.2 L Carbon Dioxide 18 L BUN 58 H Creatinine 2.9 H Glucose 201 H POC Glucose 306 H Lactic Acid Calcium 8.2 L TIBC Ferritin Lactate Dehydrogenase Total Creatine Kinase Vitamin B12 Crossmatch 08/14/16 08/14/16 08/14/16 08:26 08:26 11:19 WBC 28.9 H RBC 2.92 L Hgb 8.2 L Hct 25.9 L RDW 18.8 H Lymph % (Auto) [place] % (Auto) [place] # Seg Neutrophils % Seg Neuts % (Manual) 85.5 H Lymphocytes % (Manual) 4.5 L Monocytes % (Manual) Seg Neutrophils # Seg Neutrophils # Man 24.7 H Monocytes # (Manual) 0.9 H Eosinophils # (Manual) D-Dimer POC ABG pCO2 POC ABG pO2 Sodium Potassium Chloride Carbon Dioxide 15 L BUN 77 H Creatinine 3.5 H Glucose 289 H POC Glucose 274 H Lactic Acid Calcium 8.3 L TIBC Ferritin Lactate Dehydrogenase Total Creatine Kinase Vitamin B12 Crossmatch 08/14/16 08/14/16 08/15/16 15:56 21:12 06:00 WBC 30.1 H RBC 2.67 L Hgb 7.8 L Hct 23.4 L RDW 18.4 H Lymph % (Auto) [place] % (Auto) [place] # Seg Neutrophils % Seg Neuts % (Manual) 86.0 H Lymphocytes % (Manual) 4.0 L Monocytes % (Manual) Seg Neutrophils # Seg Neutrophils # Man 25.9 H Monocytes # (Manual) 1.8 H Eosinophils # (Manual) D-Dimer POC ABG pCO2 POC ABG pO2 Sodium Potassium Chloride Carbon Dioxide BUN Creatinine Glucose POC Glucose 284 H 357 H Lactic Acid Calcium TIBC Ferritin Lactate Dehydrogenase Total Creatine Kinase Vitamin B12 Crossmatch 08/15/16 08/15/16 08/15/16 06:00 11:17 16:43 WBC RBC Hgb Hct RDW Lymph % (Auto) [place] % (Auto) [place] # Seg Neutrophils % Seg Neuts % (Manual) Lymphocytes % (Manual) Monocytes % (Manual) Seg Neutrophils # Seg Neutrophils # Man Monocytes # (Manual) Eosinophils # (Manual) D-Dimer POC ABG pCO2 POC ABG pO2 Sodium Potassium 3.5 L Chloride 96.6 L Carbon Dioxide 21 L BUN 51 H Creatinine 2.6 H Glucose 214 H POC Glucose 280 H 257 H Lactic Acid Calcium 8.3 L TIBC Ferritin Lactate Dehydrogenase Total Creatine Kinase Vitamin B12 Crossmatch 08/15/16 08/16/16 08/16/16 23:40 05:25 07:20 WBC RBC Hgb Hct RDW Lymph % (Auto) [place] % (Auto) [place] # Seg Neutrophils % Seg Neuts % (Manual) Lymphocytes % (Manual) Monocytes % (Manual) Seg Neutrophils # Seg Neutrophils # Man Monocytes # (Manual) Eosinophils # (Manual) D-Dimer POC ABG pCO2 POC ABG pO2 Sodium Potassium Chloride Carbon Dioxide BUN Creatinine Glucose POC Glucose 179 H 140 H 147 H Lactic Acid Calcium TIBC Ferritin Lactate Dehydrogenase Total Creatine Kinase Vitamin B12 Crossmatch 08/16/16 08/16/16 08/16/16 09:20 09:20 11:28 WBC 35.1 H RBC 2.78 L Hgb 7.9 L Hct 24.7 L RDW 18.5 H Lymph % (Auto) [place] % (Auto) [place] # Seg Neutrophils % Seg Neuts % (Manual) Lymphocytes % (Manual) Monocytes % (Manual) Seg Neutrophils # Seg Neutrophils # Man Monocytes # (Manual) Eosinophils # (Manual) D-Dimer POC ABG pCO2 POC ABG pO2 Sodium 136 L Potassium 3.5 L Chloride Carbon Dioxide 17 L BUN 62 H Creatinine 3.3 H Glucose 128 H POC Glucose 150 H Lactic Acid Calcium 7.7 L TIBC Ferritin Lactate Dehydrogenase Total Creatine Kinase Vitamin B12 Crossmatch 08/16/16 08/16/16 08/17/16 15:39 23:45 05:03 WBC RBC Hgb Hct RDW Lymph % (Auto) [place] % (Auto) [place] # Seg Neutrophils % Seg Neuts % (Manual) Lymphocytes % (Manual) Monocytes % (Manual) Seg Neutrophils # Seg Neutrophils # Man Monocytes # (Manual) Eosinophils # (Manual) D-Dimer POC ABG pCO2 POC ABG pO2 Sodium Potassium Chloride Carbon Dioxide BUN Creatinine Glucose POC Glucose 106 H 156 H 287 H Lactic Acid Calcium TIBC Ferritin Lactate Dehydrogenase Total Creatine Kinase Vitamin B12 Crossmatch 08/17/16 08/17/16 08/17/16 08:40 08:40 12:11 WBC 37.0 H RBC 2.91 L Hgb 8.3 L Hct 25.8 L RDW 18.5 H Lymph % (Auto) [place] % (Auto) [place] # Seg Neutrophils % Seg Neuts % (Manual) Lymphocytes % (Manual) Monocytes % (Manual) Seg Neutrophils # Seg Neutrophils # Man Monocytes # (Manual) Eosinophils # (Manual) D-Dimer POC ABG pCO2 POC ABG pO2 Sodium 136 L Potassium Chloride 96.0 L Carbon Dioxide 16 L BUN 78 H Creatinine 4.0 H Glucose 330 H POC Glucose 345 H Lactic Acid Calcium 8.3 L TIBC Ferritin Lactate Dehydrogenase Total Creatine Kinase Vitamin B12 Crossmatch 08/17/16 08/17/16 08/17/16 15:34 17:40 20:07 WBC RBC Hgb Hct RDW Lymph % (Auto) [place] % (Auto) [place] # Seg Neutrophils % Seg Neuts % (Manual) Lymphocytes % (Manual) Monocytes % (Manual) Seg Neutrophils # Seg Neutrophils # Man Monocytes # (Manual) Eosinophils # (Manual) D-Dimer POC ABG pCO2 POC ABG pO2 Sodium Potassium Chloride Carbon Dioxide BUN Creatinine Glucose POC Glucose < 40 L 403 H 439 H Lactic Acid Calcium TIBC Ferritin Lactate Dehydrogenase Total Creatine Kinase Vitamin B12 Crossmatch 08/18/16 08/18/16 08/18/16 00:16 05:03 12:34 WBC RBC Hgb Hct RDW Lymph % (Auto) [place] % (Auto) [place] # Seg Neutrophils % Seg Neuts % (Manual) Lymphocytes % (Manual) Monocytes % (Manual) Seg Neutrophils # Seg Neutrophils # Man Monocytes # (Manual) Eosinophils # (Manual) D-Dimer POC ABG pCO2 POC ABG pO2 Sodium Potassium Chloride Carbon Dioxide BUN Creatinine Glucose POC Glucose 457 H 388 H 313 H Lactic Acid Calcium TIBC Ferritin Lactate Dehydrogenase Total Creatine Kinase Vitamin B12 Crossmatch 08/18/16 08/18/16 08/19/16 13:16 17:50 02:14 WBC RBC Hgb Hct RDW Lymph % (Auto) [place] % (Auto) [place] # Seg Neutrophils % Seg Neuts % (Manual) Lymphocytes % (Manual) Monocytes % (Manual) Seg Neutrophils # Seg Neutrophils # Man Monocytes # (Manual) Eosinophils # (Manual) D-Dimer POC ABG pCO2 POC ABG pO2 Sodium Potassium Chloride Carbon Dioxide 15 L BUN 100 H Creatinine 4.5 H Glucose 286 H POC Glucose 195 H 118 H Lactic Acid Calcium 8.3 L TIBC Ferritin Lactate Dehydrogenase Total Creatine Kinase Vitamin B12 Crossmatch 08/19/16 08/19/16 08/19/16 12:23 12:23 17:35 WBC 30.9 H RBC 3.45 L Hgb 9.7 L Hct RDW 18.6 H Lymph % (Auto) [place] % (Auto) [place] # Seg Neutrophils % Seg Neuts % (Manual) 89.5 H Lymphocytes % (Manual) 6.0 L Monocytes % (Manual) Seg Neutrophils # Seg Neutrophils # Man 27.7 H Monocytes # (Manual) Eosinophils # (Manual) D-Dimer POC ABG pCO2 POC ABG pO2 Sodium Potassium Chloride Carbon Dioxide 16 L BUN 116 H Creatinine 5.0 H Glucose 102 H POC Glucose 181 H Lactic Acid Calcium TIBC Ferritin Lactate Dehydrogenase Total Creatine Kinase Vitamin B12 Crossmatch 08/19/16 08/20/1616 23:56 06:03 06:31 WBC RBC Hgb Hct RDW Lymph % (Auto) [place] % (Auto) [place] # Seg Neutrophils % Seg Neuts % (Manual) Lymphocytes % (Manual) Monocytes % (Manual) Seg Neutrophils # Seg Neutrophils # Man Monocytes # (Manual) Eosinophils # (Manual) D-Dimer POC ABG pCO2 POC ABG pO2 Sodium Potassium Chloride Carbon Dioxide BUN Creatinine Glucose POC Glucose 239 H 278 H 286 H Lactic Acid Calcium TIBC Ferritin Lactate Dehydrogenase Total Creatine Kinase Vitamin B12 Crossmatch 08/20/16 08/20/16 08/20/16 07:55 07:55 12:53 WBC 28.6 H RBC 3.45 L Hgb 9.7 L Hct RDW 18.7 H Lymph % (Auto) [place] % (Auto) [place] # Seg Neutrophils % Seg Neuts % (Manual) 93.0 H Lymphocytes % (Manual) 5.5 L Monocytes % (Manual) Seg Neutrophils # Seg Neutrophils # Man 26.6 H Monocytes # (Manual) Eosinophils # (Manual) D-Dimer POC ABG pCO2 POC ABG pO2 Sodium Potassium Chloride Carbon Dioxide 15 L BUN 134 H Creatinine 5.1 H Glucose 284 H POC Glucose 242 H Lactic Acid Calcium 8.1 L TIBC Ferritin Lactate Dehydrogenase Total Creatine Kinase Vitamin B12 Crossmatch 08/21/16 08/21/16 08/21/16 00:32 04:00 11:55 WBC RBC Hgb Hct RDW Lymph % (Auto) [place] % (Auto) [place] # Seg Neutrophils % Seg Neuts % (Manual) Lymphocytes % (Manual) Monocytes % (Manual) Seg Neutrophils # Seg Neutrophils # Man Monocytes # (Manual) Eosinophils # (Manual) D-Dimer POC ABG pCO2 POC ABG pO2 Sodium Potassium Chloride 96.2 L Carbon Dioxide 18 L BUN 95 H Creatinine 3.6 H Glucose 208 H POC Glucose 210 H 316 H Lactic Acid Calcium 8.0 L TIBC Ferritin Lactate Dehydrogenase Total Creatine Kinase Vitamin B12 Crossmatch 08/21/16 08/21/16 08/22/16 21:20 Unknown 00:51 WBC 34.9 H RBC 3.56 L Hgb 10.0 L Hct RDW 18.2 H Lymph % (Auto) [place] % (Auto) [place] # Seg Neutrophils % Seg Neuts % (Manual) 94.0 H Lymphocytes % (Manual) 4.0 L Monocytes % (Manual) Seg Neutrophils # Seg Neutrophils # Man 32.8 H Monocytes # (Manual) Eosinophils # (Manual) D-Dimer POC ABG pCO2 POC ABG pO2 Sodium Potassium Chloride Carbon Dioxide BUN Creatinine Glucose POC Glucose 156 H 208 H Lactic Acid Calcium TIBC Ferritin Lactate Dehydrogenase Total Creatine Kinase Vitamin B12 Crossmatch 08/22/16 08/22/16 08/22/16 05:16 07:05 07:05 WBC 29.9 H RBC 2.98 L Hgb 8.7 L Hct 26.7 L RDW 18.3 H Lymph % (Auto) [place] % (Auto) [place] # Seg Neutrophils % Seg Neuts % (Manual) 73.0 H Lymphocytes % (Manual) Monocytes % (Manual) 10.0 H Seg Neutrophils # Seg Neutrophils # Man 21.8 H Monocytes # (Manual) 3.0 H Eosinophils # (Manual) D-Dimer POC ABG pCO2 POC ABG pO2 Sodium Potassium 3.2 L D Chloride Carbon Dioxide BUN 60 H Creatinine 3.1 H Glucose 213 H POC Glucose 218 H Lactic Acid Calcium 7.6 L TIBC Ferritin Lactate Dehydrogenase Total Creatine Kinase Vitamin B12 Crossmatch 08/22/16 08/22/16 08/22/16 12:23 18:15 23:57 WBC RBC Hgb Hct RDW Lymph % (Auto) [place] % (Auto) [place] # Seg Neutrophils % Seg Neuts % (Manual) Lymphocytes % (Manual) Monocytes % (Manual) Seg Neutrophils # Seg Neutrophils # Man Monocytes # (Manual) Eosinophils # (Manual) D-Dimer POC ABG pCO2 POC ABG pO2 Sodium Potassium Chloride Carbon Dioxide BUN Creatinine Glucose POC Glucose 165 H 64 L 55 L Lactic Acid Calcium TIBC Ferritin Lactate Dehydrogenase Total Creatine Kinase Vitamin B12 Crossmatch 08/23/16 08/23/16 08/23/16 05:42 05:42 11:48 WBC 34.2 H RBC 3.11 L Hgb 8.9 L Hct 27.8 L RDW 18.4 H Lymph % (Auto) [place] % (Auto) [place] # Seg Neutrophils % Seg Neuts % (Manual) 84.0 H Lymphocytes % (Manual) 11.0 L Monocytes % (Manual) Seg Neutrophils # Seg Neutrophils # Man 28.7 H Monocytes # (Manual) 1.0 H Eosinophils # (Manual) D-Dimer POC ABG pCO2 POC ABG pO2 Sodium Potassium 3.2 L Chloride Carbon Dioxide BUN 70 H Creatinine 3.6 H Glucose 45 L POC Glucose 179 H Lactic Acid Calcium 8.1 L TIBC Ferritin Lactate Dehydrogenase Total Creatine Kinase Vitamin B12 Crossmatch 08/23/16 08/23/16 08/24/16 18:50 23:46 05:49 WBC 27.0 H RBC 2.79 L Hgb 7.9 L Hct 25.2 L RDW 18.4 H Lymph % (Auto) [place] % (Auto) [place] # Seg Neutrophils % Seg Neuts % (Manual) 84.0 H Lymphocytes % (Manual) 7.5 L Monocytes % (Manual) Seg Neutrophils # Seg Neutrophils # Man 22.7 H Monocytes # (Manual) 1.8 H Eosinophils # (Manual) D-Dimer POC ABG pCO2 POC ABG pO2 Sodium Potassium Chloride Carbon Dioxide BUN Creatinine Glucose POC Glucose 191 H 172 H Lactic Acid Calcium TIBC Ferritin Lactate Dehydrogenase Total Creatine Kinase Vitamin B12 Crossmatch 08/24/16 08/24/16 08/25/16 05:49 12:21 00:23 WBC RBC Hgb Hct RDW Lymph % (Auto) [place] % (Auto) [place] # Seg Neutrophils % Seg Neuts % (Manual) Lymphocytes % (Manual) Monocytes % (Manual) Seg Neutrophils # Seg Neutrophils # Man Monocytes # (Manual) Eosinophils # (Manual) D-Dimer POC ABG pCO2 POC ABG pO2 Sodium Potassium 3.3 L Chloride Carbon Dioxide BUN 64 H Creatinine 3.1 H Glucose 183 H POC Glucose 239 H 147 H Lactic Acid Calcium 8.2 L TIBC Ferritin Lactate Dehydrogenase Total Creatine Kinase Vitamin B12 Crossmatch 08/25/16 08/25/16 08/25/16 04:36 08:00 08:00 WBC 21.7 H RBC 2.56 L Hgb 7.5 L Hct 23.3 L RDW 19.1 H Lymph % (Auto) [place] % (Auto) [place] # Seg Neutrophils % Seg Neuts % (Manual) 77.0 H Lymphocytes % (Manual) 9.0 L Monocytes % (Manual) 11.0 H Seg Neutrophils # Seg Neutrophils # Man 16.7 H Monocytes # (Manual) 2.4 H Eosinophils # (Manual) 0.7 H D-Dimer POC ABG pCO2 POC ABG pO2 Sodium Potassium 3.4 L Chloride 95.6 L Carbon Dioxide BUN 77 H Creatinine 4.1 H Glucose POC Glucose 128 H Lactic Acid Calcium 8.1 L TIBC Ferritin Lactate Dehydrogenase Total Creatine Kinase Vitamin B12 Crossmatch 08/25/16 08/25/16 08/25/16 16:49 20:08 20:17 WBC RBC Hgb Hct RDW Lymph % (Auto) [place] % (Auto) [place] # Seg Neutrophils % Seg Neuts % (Manual) Lymphocytes % (Manual) Monocytes % (Manual) Seg Neutrophils # Seg Neutrophils # Man Monocytes # (Manual) Eosinophils # (Manual) D-Dimer POC ABG pCO2 POC ABG pO2 Sodium Potassium Chloride Carbon Dioxide BUN Creatinine Glucose POC Glucose 62 L 54 L 207 H Lactic Acid Calcium TIBC Ferritin Lactate Dehydrogenase Total Creatine Kinase Vitamin B12 Crossmatch 08/26/16 08/26/16 08/27/16 08:00 08:00 05:57 WBC 19.2 H RBC 2.72 L Hgb 8.0 L Hct 24.7 L RDW 19.5 H Lymph % (Auto) 10.3 L [place] % (Auto) 11.6 H [place] # 2.2 H Seg Neutrophils % 77.1 H Seg Neuts % (Manual) Lymphocytes % (Manual) Monocytes % (Manual) Seg Neutrophils # 14.8 H Seg Neutrophils # Man Monocytes # (Manual) Eosinophils # (Manual) D-Dimer POC ABG pCO2 POC ABG pO2 Sodium Potassium 3.5 L Chloride Carbon Dioxide BUN 63 H Creatinine 3.1 H Glucose POC Glucose 180 H Lactic Acid Calcium TIBC Ferritin Lactate Dehydrogenase Total Creatine Kinase Vitamin B12 Crossmatch 08/27/16 08/27/16 08/27/16 06:09 06:09 06:09 WBC 21.4 H RBC 3.18 L Hgb 9.1 L Hct 29.5 L RDW 19.7 H Lymph % (Auto) [place] % (Auto) [place] # Seg Neutrophils % Seg Neuts % (Manual) 77.0 H Lymphocytes % (Manual) 9.0 L Monocytes % (Manual) 9.0 H Seg Neutrophils # Seg Neutrophils # Man 16.5 H Monocytes # (Manual) 1.9 H Eosinophils # (Manual) D-Dimer POC ABG pCO2 POC ABG pO2 Sodium Potassium Chloride Carbon Dioxide BUN 77 H Creatinine 3.5 H Glucose 127 H POC Glucose Lactic Acid Calcium 8.2 L TIBC Ferritin Lactate Dehydrogenase Total Creatine Kinase 172 H Vitamin B12 Crossmatch 08/27/16 08/27/16 08/27/16 12:33 21:29 23:40 WBC RBC Hgb Hct RDW Lymph % (Auto) [place] % (Auto) [place] # Seg Neutrophils % Seg Neuts % (Manual) Lymphocytes % (Manual) Monocytes % (Manual) Seg Neutrophils # Seg Neutrophils # Man Monocytes # (Manual) Eosinophils # (Manual) D-Dimer POC ABG pCO2 POC ABG pO2 Sodium Potassium Chloride Carbon Dioxide BUN Creatinine Glucose POC Glucose 142 H 43 L 67 L Lactic Acid Calcium TIBC Ferritin Lactate Dehydrogenase Total Creatine Kinase Vitamin B12 Crossmatch 08/28/16 06:51 WBC RBC Hgb Hct RDW Lymph % (Auto) [place] % (Auto) [place] # Seg Neutrophils % Seg Neuts % (Manual) Lymphocytes % (Manual) Monocytes % (Manual) Seg Neutrophils # Seg Neutrophils # Man Monocytes # (Manual) Eosinophils # (Manual) D-Dimer POC ABG pCO2 POC ABG pO2 Sodium Potassium Chloride Carbon Dioxide BUN Creatinine Glucose POC Glucose 64 L Lactic Acid Calcium TIBC Ferritin Lactate Dehydrogenase Total Creatine Kinase Vitamin B12 Crossmatch Allied health notes reviewed: nursing
--- NOTE | 2016-08-28 16:14 | Discharge Summary ---
Providers - Providers Date of Admission: 08/11/16 18:53 Date of discharge: 08/28/16 Attending physician: SUE DEL REAL 08/11/16 19:00 Consult to Physician [CONS] Routine Consulting Provider: EDGARDO ALTAMIRANO Reason For Exam: sepsis Place consult to:: answering service Notified:: y If yes, spoke with:: Time called:: 19:28 08/11/16 19:01 Consult to Wound/ET Nurse [CONS] Routine Reason For Exam: wound eval 08/11/16 19:10 Consult to Dietitian/Nutrition [CONS] Routine Physician Instructions: Reason For Exam: Reason for Consult: Write/Manage Tube Feeding 08/11/16 19:55 Consult to Dietitian/Nutrition [CONS] Routine Physician Instructions: Reason For Exam: Reason for Consult: Nutrition Recommendations Reason for Consult: Write/Manage Tube Feeding 08/11/16 20:23 Consult to Physician [CONS] Routine Consulting Provider: CRIS LONG Reason For Exam: septic shock Place consult to:: answering service Notified:: y If yes, spoke with:: Time called:: 20:28 08/14/16 10:16 Consult to Physician [CONS] Routine Consulting Provider: NOLVIA PRESLEY Reason For Exam: perm cath exchange Place consult to:: Notified:: yes Was contact made?: Yes If yes, spoke with:: oxana Time called:: 11:15 08/14/16 11:12 Consult to PICC Line RN [CONS] Routine Reason For Exam: PICC Type Line:: PICC 08/21/16 11:58 Physical Therapy Evaluation and Treat [CONS] Routine Comment: Reason For Exam: debility Primary care physician: DAJUAN PIPER Hospitalization Condition: Serious Disposition: DC/TX SNF W [facility] CERT Core Measure Documentation - Palliative Care Palliative Care/ Comfort Measures: Not Applicable - Core Measures Any of the following diagnoses?: none Exam - Constitutional Vitals: Temp Pulse Resp BP Pulse Ox 98.4 F 115 H 18 134/63 100 08/28/16 12:43 08/28/16 13:29 08/28/16 13:29 08/28/16 12:43 08/28/16 12:43 Plan Activity: advance as tolerated Diet: other (tube feeding per protocol) Additional Instructions: Meropenem 1 g IV every 24 hours stop date 09/02/2016 per ID. Daptomycin 582. 6 mg IV every 24 hours stop date 09/02/2016 per ID. Vancomycin 250 mg by mouth 4 times a day stop date 2 weeks. renal/HD per schedule Follow up with: DAJUAN PIPER MD [Primary Care Provider] - 3-5 Days LUL EASTMAN MD [Staff Physician] - 7 Days JAVON SERRANO MD [Staff Physician] - 7 Days MAHIN IQBAL MD [Staff Physician] - 7 Days Prescriptions: DAPTOmycin [Cubicin] 582.6 mg IV Q48H #3 vial Meropenem [Merrem] 1,000 mg IV Q24HR #5 vial Vancomycin 250 mg PO Q6HR 14 Days
[2016-08-28] MEDS: MERREM 1,000 MG in NACL 0.9% 100 ML IV SCH (17:36)
[2016-08-28] MEDS: LEVEMIR SUB-Q SCH (18:55)
--- NOTE | 2016-08-28 19:31 | Progress Note ---
Assessment and Plan Assessment and plan: -- Sepsis secondary to polymicrobial bacteremia and multiple antibiotics, Continue Meropenem : Positive blood cultures Klebsiella ESBL stopped 09/02/2016 Daptomycin : Positive VRE. Date 09/02/2016 Oral vancomycin : C. difficile colitis. Stop Date in 2 weeks ID following Patient also received 5 days of linezolid 7 days of Flagyl 5 days of vancomycin 3 days of Zosyn --Leukocytosis; Significantly improved from the time of admission from 51K -21K Multifactorial secondary to sepsis, as well as C. difficile colitis Closely monitor --Previous permacath source (removed 08/15) Echocardiogram ejection fraction 45% no thrombus or vegetation repeat blood cultures negative so far -- C. difficile colitis, symptoms significantly improved Continue PO vanco, contact isolation and handwashing -- End-stage renal disease HD schedule , nephrology following , Vas-Cath need to be converted to permacath Once cleared by ID --History of CVA with left-sided hemiparesis Supportive care --History of seizure disorder; No new episodes of seizure, continue Keppra, seizure precautions -- Sacral decubitus- Continue wound and supportive care -- Diabetes type 2 Moderate control, Accu-Chek sliding scale coverage and ADA diet and insulin as needed --DVT prophylaxis ; with Lovenox --DC planning per case management possible discharge to SNF when permacath was placed Once cleared by ID Plan of care discussed with the nurse as well as the case management History Interval history: Patient seen and evaluated medical records reviewed No new events reported by the nursing staff Patient is noncommunicative confused Receiving IV antibiotics per ID Vital signs reviewed stable Hospitalist Physical - Constitutional Vitals: Temp Pulse Resp BP Pulse Ox 98.5 F 116 H 18 129/60 99 08/28/16 17:44 08/28/16 17:44 08/28/16 17:44 08/28/16 17:44 08/28/16 17:44 General appearance: Present: no acute distress, well-nourished, obese, other ( chronically ill looking) - EENT Eyes: Present: PERRL, EOM intact - Neck Neck: Present: supple, normal ROM - Respiratory Respiratory effort: normal Respiratory: bilateral: diminished, negative: rales, rhonchi, wheezing - Cardiovascular Rhythm: regular Heart Sounds: Present: S1 & S2 - Extremities Extremities: no ischemia, pulses intact, pulses symmetrical Peripheral Pulses: within normal limits - Abdominal General gastrointestinal: soft, non-tender, non-distended, normal bowel sounds - Integumentary Integumentary: Present: clear, warm - Psychiatric Psychiatric: other (noncommunicative confused) - Neurologic Neurologic: other (noncommunicative confused) Results - Labs CBC & Chem 7: 08/27/16 06:09 08/27/16 06:09 Labs: Laboratory Last Values WBC 21.4 K/mm3 (4.5-11.0) H 08/27/16 06:09 RBC 3.18 M/mm3 (3.65-5.03) L 08/27/16 06:09 Hgb 9.1 gm/dl (10.1-14.3) L 08/27/16 06:09 Hct 29.5 % (30.3-42.9) L 08/27/16 06:09 MCV 93 fl (79-97) 08/27/16 06:09 MCH 29 pg (28-32) 08/27/16 06:09 MCHC 31 % (30-34) 08/27/16 06:09 RDW 19.7 % (13.2-15.2) H 08/27/16 06:09 Plt Count 310 K/mm3 (140-440) 08/27/16 06:09 Lymph % (Auto) 10.3 % (13.4-35.0) L 08/26/16 08:00 [place] % (Auto) 11.6 % (0.0-7.3) H 08/26/16 08:00 Eos % (Auto) 0.5 % (0.0-4.3) 08/26/16 08:00 Baso % (Auto) 0.5 % (0.0-1.8) 08/26/16 08:00 Lymph # 2.0 K/mm3 (1.2-5.4) 08/26/16 08:00 [place] # 2.2 K/mm3 (0.0-0.8) H 08/26/16 08:00 Eos # 0.1 K/mm3 (0.0-0.4) 08/26/16 08:00 Baso # 0.1 K/mm3 (0.0-0.1) 08/26/16 08:00 Add Manual Diff Complete 08/27/16 06:09 Total Counted 100 08/27/16 06:09 Seg Neutrophils % 77.1 % (40.0-70.0) H 08/26/16 08:00 Seg Neuts % (Manual) 77.0 % (40.0-70.0) H 08/27/16 06:09 Band Neutrophils % 5.0 % 08/27/16 06:09 Lymphocytes % (Manual) 9.0 % (13.4-35.0) L 08/27/16 06:09 Reactive Lymphs % (Man) 0 % 08/27/16 06:09 Monocytes % (Manual) 9.0 % (0.0-7.3) H 08/27/16 06:09 Eosinophils % (Manual) 0 % (0.0-4.3) 08/27/16 06:09 Basophils % (Manual) 0 % (0.0-1.8) 08/27/16 06:09 Metamyelocytes % 0 % 08/27/16 06:09 Myelocytes % 0 % 08/27/16 06:09 Promyelocytes % 0 % 08/27/16 06:09 Blast Cells % 0 % 08/27/16 06:09 Nucleated RBC % Not Reportable 08/27/16 06:09 Seg Neutrophils # 14.8 K/mm3 (1.8-7.7) H 08/26/16 08:00 Seg Neutrophils # Man 16.5 K/mm3 (1.8-7.7) H 08/27/16 06:09 Band Neutrophils # 1.1 K/mm3 08/27/16 06:09 Lymphocytes # (Manual) 1.9 K/mm3 (1.2-5.4) 08/27/16 06:09 Abs React Lymphs (Man) 0.0 K/mm3 08/27/16 06:09 Monocytes # (Manual) 1.9 K/mm3 (0.0-0.8) H 08/27/16 06:09 Eosinophils # (Manual) 0.0 K/mm3 (0.0-0.4) 08/27/16 06:09 Basophils # (Manual) 0.0 K/mm3 (0.0-0.1) 08/27/16 06:09 Metamyelocytes # 0.0 K/mm3 08/27/16 06:09 Myelocytes # 0.0 K/mm3 08/27/16 06:09 Promyelocytes # 0.0 K/mm3 08/27/16 06:09 Blast Cells # 0.0 K/mm3 08/27/16 06:09 Pathologist Review 08/19/16 12:23 WBC Morphology Not Reportable 08/27/16 06:09 Hypersegmented Neuts Not Reportable 08/27/16 06:09 Hyposegmented Neuts Not Reportable 08/27/16 06:09 Hypogranular Neuts Not Reportable 08/27/16 06:09 Smudge Cells Not Reportable 08/27/16 06:09 Toxic Granulation Not Reportable 08/27/16 06:09 Toxic Vacuolation Not Reportable 08/27/16 06:09 Dohle Bodies Not Reportable 08/27/16 06:09 Pelger-Huet Anomaly Not Reportable 08/27/16 06:09 Quynh Rods Not Reportable 08/27/16 06:09 Platelet Estimate Not Reportable 08/27/16 06:09 Clumped Platelets Not Reportable 08/27/16 06:09 Plt Clumps, EDTA Not Reportable 08/27/16 06:09 Large Platelets Not Reportable 08/27/16 06:09 Giant Platelets Not Reportable 08/27/16 06:09 Platelet Satelliting Not Reportable 08/27/16 06:09 Plt Morphology Comment Not Reportable 08/27/16 06:09 RBC Morphology Not Reportable 08/27/16 06:09 Dimorphic RBCs Not Reportable 08/27/16 06:09 Polychromasia Not Reportable 08/27/16 06:09 Hypochromasia Few 08/27/16 06:09 Poikilocytosis Not Reportable 08/27/16 06:09 Anisocytosis 1+ 08/27/16 06:09 Microcytosis Not Reportable 08/27/16 06:09 Macrocytosis Not Reportable 08/27/16 06:09 Spherocytes Not Reportable 08/27/16 06:09 Pappenheimer Bodies Not Reportable 08/27/16 06:09 Sickle Cells Not Reportable 08/27/16 06:09 Target Cells Not Reportable 08/27/16 06:09 Tear Drop Cells Not Reportable 08/27/16 06:09 Ovalocytes Not Reportable 08/27/16 06:09 Stomatocytes 1+ 08/24/16 05:49 Helmet Cells Not Reportable 08/27/16 06:09 [place] Bodies Not Reportable 08/27/16 06:09 [place] Rings Not Reportable 08/27/16 06:09 [place] Cells Not Reportable 08/27/16 06:09 Bite Cells Not Reportable 08/27/16 06:09 Crenated Cell Not Reportable 08/27/16 06:09 Elliptocytes Not Reportable 08/27/16 06:09 Acanthocytes (Spur) Not Reportable 08/27/16 06:09 Rouleaux Not Reportable 08/27/16 06:09 Hemoglobin C Crystals Not Reportable 08/27/16 06:09 Schistocytes Not Reportable 08/27/16 06:09 Malaria parasites Not Reportable 08/27/16 06:09 Percent Retic 2.01 % (0.78-2.58) 08/12/16 12:16 Vinny Bodies Not Reportable 08/27/16 06:09 Hem Pathologist Commnt No 08/27/16 06:09 D-Dimer 5042.20 ng/mlDDU (0-234) H 08/12/16 16:18 POC ABG pH 7.444 (7.35-7.45) 08/12/16 15:23 POC ABG pCO2 29.4 (35-45) L 08/12/16 15:23 POC ABG pO2 51 (80-105) L 08/12/16 15:23 POC ABG HCO3 20.2 08/12/16 15:23 POC ABG Total CO2 21 08/12/16 15:23 POC ABG O2 Sat 88 08/12/16 15:23 POC ABG Base Excess -4 08/12/16 15:23 FiO2 2 % 08/12/16 15:23 Sodium 143 mmol/L (137-145) 08/26/16 08:00 Potassium 3.5 mmol/L (3.6-5.0) L 08/26/16 08:00 Chloride 99.8 mmol/L (98-107) 08/26/16 08:00 Carbon Dioxide 23 mmol/L (22-30) 08/27/16 06:09 Anion Gap 20 mmol/L 08/26/16 08:00 BUN 77 mg/dL (7-17) H 08/27/16 06:09 Creatinine 3.5 mg/dL (0.7-1.2) H 08/27/16 06:09 Estimated GFR 16 ml/min 08/27/16 06:09 BUN/Creatinine Ratio 22.00 % 08/27/16 06:09 Glucose 127 mg/dL (65-100) H 08/27/16 06:09 POC Glucose 90 (70-105) 08/28/16 12:06 Lactic Acid 2.0 mmol/L (0.7-2.0) 08/12/16 05:30 Calcium 8.2 mg/dL (8.4-10.2) L 08/27/16 06:09 Magnesium 2.2 mg/dL (1.7-2.3) 08/11/16 15:28 Iron 62 ug/dL (37-170) 08/12/16 12:16 TIBC 101 mcg/dL (250-450) L 08/12/16 12:16 Ferritin 2000.0 ng/mL (13.0-400.0) H 08/12/16 12:16 Total Bilirubin 1.0 mg/dL (0.1-1.2) 08/11/16 15:28 AST 258 units/L (5-40) H 08/11/16 15:28 ALT 201 units/L (7-56) H 08/11/16 15:28 Alkaline Phosphatase 458 units/L (35-129) H 08/11/16 15:28 Ammonia 49.0 umol/L (25-60) 08/15/16 06:00 Lactate Dehydrogenase 276 units/L (91-180) H 08/12/16 12:16 Total Creatine Kinase 172 units/L (30-135) H 08/27/16 06:09 C-Reactive Protein 37.70 mg/dL (0.00-1.30) H 08/11/16 15:28 Total Protein 7.1 g/dL (6.3-8.2) 08/11/16 15:28 Albumin 2.3 g/dL (3.9-5) L 08/11/16 15:28 Albumin/Globulin Ratio 0.5 % 08/11/16 15:28 Vitamin B12 1117 pg/mL (211-911) H 08/12/16 12:16 Folate 18.10 ng/mL (7.3-26.0) 08/12/16 12:16 TSH 1.360 mlU/mL (0.270-4.200) 08/11/16 15:28 Urine Color [place] (Yellow) 08/11/16 15:17 Urine Turbidity Turbid (Clear) 08/11/16 15:17 Urine pH 5.0 (5.0-7.0) 08/11/16 15:17 Ur Specific [place] 1.022 (1.003-1.030) 08/11/16 15:17 Urine Protein >500 mg/dL (Negative) 08/11/16 15:17 Urine Glucose (UA) Neg mg/dL (Negative) 08/11/16 15:17 Urine Ketones Tr mg/dL (Negative) 08/11/16 15:17 Urine Blood Sm (Negative) 08/11/16 15:17 Urine Nitrite Neg (Negative) 08/11/16 15:17 Ur Reducing Substances Not Reportable 08/11/16 15:17 Urine Bilirubin Neg (Negative) 08/11/16 15:17 Urine Ictotest Not Reportable 08/11/16 15:17 Urine Urobilinogen < 2.0 mg/dL (<2.0) 08/11/16 15:17 Ur Leukocyte Esterase Mod (Negative) 08/11/16 15:17 Urine WBC (Auto) > 182.0 /HPF (0.0-6.0) H 08/11/16 15:17 Urine RBC (Auto) 48.0 /HPF (0.0-6.0) 08/11/16 15:17 U Epithel Cells (Auto) 4.0 /HPF (0-13.0) 08/11/16 15:17 Urine Bacteria (Auto) 4+ /HPF (Negative) 08/11/16 15:17 Urine HCG, Qual Negative (Negative) 08/11/16 15:17 Random Vancomycin 13.7 ug/mL (0-40.0) 08/15/16 06:00 Salicylates < 0.3 mg/dL (2.8-20.0) L 08/11/16 15:28 Urine Opiates Screen Presumptive negative 08/11/16 15:17 Urine Methadone Screen Presumptive negative 08/11/16 15:17 Acetaminophen < 15.0 ug/mL (10.0-30.0) 08/11/16 15:28 Ur Barbiturates Screen Presumptive negative 08/11/16 15:17 Ur Phencyclidine Scrn Presumptive negative 08/11/16 15:17 Ur Amphetamines Screen Presumptive negative 08/11/16 15:17 U Benzodiazepines Scrn Presumptive negative 08/11/16 15:17 Urine Cocaine Screen Presumptive negative 08/11/16 15:17 U Marijuana (THC) Screen Presumptive negative 08/11/16 15:17 Drugs of Abuse Note Disclamer 08/11/16 15:17 Plasma/Serum Alcohol < 0.01 gm% (0-0.07) 08/11/16 15:28 Blood Type B POSITIVE 08/11/16 19:45 Antibody Screen Negative 08/11/16 19:45 Crossmatch See Detail 08/11/16 19:45
[2016-08-29] MEDS: NOVOLOG SUB-Q SCH ×5 (00:29→18:10)
[2016-08-29] MEDS: VANCOMYCIN PO SCH ×4 (00:29→18:00)
[2016-08-29] MEDS ORDERED: ANCEF/STERILE WATER 2 GM/20 ML IV NR (08:00)
[2016-08-29] MEDS: LEVEMIR SUB-Q SCH (08:09)
--- NOTE | 2016-08-29 09:04 | Progress Note ---
Assessment and Plan Assessment and plan: -- Sepsis secondary to polymicrobial bacteremia and multiple antibiotics, Continue Meropenem : Positive blood cultures Klebsiella ESBL stopped 09/02/2016 Daptomycin : Positive VRE. Date 09/02/2016 Oral vancomycin : C. difficile colitis. Stop Date in 2 weeks --Leukocytosis; Significantly improved from the time of admission from 51K -21K Multifactorial secondary to sepsis, as well as C. difficile colitis Closely monitor --Previous permacath source (removed 08/15) Echocardiogram ejection fraction 45% no thrombus or vegetation repeat blood cultures negative so far -- C. difficile colitis, symptoms significantly improved Continue PO vanco, contact isolation and handwashing -- End-stage renal disease/past Converted to permacath today HD per schedule schedule , nephrology following , --History of CVA with left-sided hemiparesis Supportive care --History of seizure disorder; No new episodes of seizure, continue Keppra, seizure precautions -- Sacral decubitus- Continue wound and supportive care -- Diabetes type 2 Moderate control, Accu-Chek sliding scale coverage and ADA diet and insulin as needed --DVT prophylaxis ; with Lovenox --DC planning per case management possible discharge to SNF and cleared by nephrology and ID Plan of care discussed with the nurse as well as the case management History Interval history: Patient seen and evaluated in her room medical records reviewed Patient underwent hemodialysis catheter placement today No new events reported by the nursing staff Patient is noncommunicative comfortable vital signs are stable Hospitalist Physical - Constitutional Vitals: Temp Pulse Resp BP Pulse Ox 98.1 F 117 H 20 140/62 91 08/29/16 08:18 08/29/16 08:18 08/29/16 08:18 08/29/16 08:18 08/29/16 08:18 General appearance: Present: no acute distress, well-nourished, obese, other ( chronically ill looking) - EENT Eyes: Present: PERRL, EOM intact - Neck Neck: Present: supple, normal ROM - Respiratory Respiratory effort: normal Respiratory: bilateral: diminished, rales, negative: rhonchi, wheezing - Cardiovascular Rhythm: regular Heart Sounds: Present: S1 & S2 - Extremities Extremities: no ischemia, pulses intact, pulses symmetrical Peripheral Pulses: within normal limits - Abdominal General gastrointestinal: soft, non-tender, non-distended, normal bowel sounds, other (PEG tube in place) - Integumentary Integumentary: Present: clear, warm - Psychiatric Psychiatric: other (noncommunicative) - Neurologic Neurologic: other (noncommunicative) Results - Labs CBC & Chem 7: 08/27/16 06:09 08/27/16 06:09 Labs: Laboratory Last Values WBC 21.4 K/mm3 (4.5-11.0) H 08/27/16 06:09 RBC 3.18 M/mm3 (3.65-5.03) L 08/27/16 06:09 Hgb 9.1 gm/dl (10.1-14.3) L 08/27/16 06:09 Hct 29.5 % (30.3-42.9) L 08/27/16 06:09 MCV 93 fl (79-97) 08/27/16 06:09 MCH 29 pg (28-32) 08/27/16 06:09 MCHC 31 % (30-34) 08/27/16 06:09 RDW 19.7 % (13.2-15.2) H 08/27/16 06:09 Plt Count 310 K/mm3 (140-440) 08/27/16 06:09 Lymph % (Auto) 10.3 % (13.4-35.0) L 08/26/16 08:00 [place] % (Auto) 11.6 % (0.0-7.3) H 08/26/16 08:00 Eos % (Auto) 0.5 % (0.0-4.3) 08/26/16 08:00 Baso % (Auto) 0.5 % (0.0-1.8) 08/26/16 08:00 Lymph # 2.0 K/mm3 (1.2-5.4) 08/26/16 08:00 [place] # 2.2 K/mm3 (0.0-0.8) H 08/26/16 08:00 Eos # 0.1 K/mm3 (0.0-0.4) 08/26/16 08:00 Baso # 0.1 K/mm3 (0.0-0.1) 08/26/16 08:00 Add Manual Diff Complete 08/27/16 06:09 Total Counted 100 08/27/16 06:09 Seg Neutrophils % 77.1 % (40.0-70.0) H 08/26/16 08:00 Seg Neuts % (Manual) 77.0 % (40.0-70.0) H 08/27/16 06:09 Band Neutrophils % 5.0 % 08/27/16 06:09 Lymphocytes % (Manual) 9.0 % (13.4-35.0) L 08/27/16 06:09 Reactive Lymphs % (Man) 0 % 08/27/16 06:09 Monocytes % (Manual) 9.0 % (0.0-7.3) H 08/27/16 06:09 Eosinophils % (Manual) 0 % (0.0-4.3) 08/27/16 06:09 Basophils % (Manual) 0 % (0.0-1.8) 08/27/16 06:09 Metamyelocytes % 0 % 08/27/16 06:09 Myelocytes % 0 % 08/27/16 06:09 Promyelocytes % 0 % 08/27/16 06:09 Blast Cells % 0 % 08/27/16 06:09 Nucleated RBC % Not Reportable 08/27/16 06:09 Seg Neutrophils # 14.8 K/mm3 (1.8-7.7) H 08/26/16 08:00 Seg Neutrophils # Man 16.5 K/mm3 (1.8-7.7) H 08/27/16 06:09 Band Neutrophils # 1.1 K/mm3 08/27/16 06:09 Lymphocytes # (Manual) 1.9 K/mm3 (1.2-5.4) 08/27/16 06:09 Abs React Lymphs (Man) 0.0 K/mm3 08/27/16 06:09 Monocytes # (Manual) 1.9 K/mm3 (0.0-0.8) H 08/27/16 06:09 Eosinophils # (Manual) 0.0 K/mm3 (0.0-0.4) 08/27/16 06:09 Basophils # (Manual) 0.0 K/mm3 (0.0-0.1) 08/27/16 06:09 Metamyelocytes # 0.0 K/mm3 08/27/16 06:09 Myelocytes # 0.0 K/mm3 08/27/16 06:09 Promyelocytes # 0.0 K/mm3 08/27/16 06:09 Blast Cells # 0.0 K/mm3 08/27/16 06:09 Pathologist Review 08/19/16 12:23 WBC Morphology Not Reportable 08/27/16 06:09 Hypersegmented Neuts Not Reportable 08/27/16 06:09 Hyposegmented Neuts Not Reportable 08/27/16 06:09 Hypogranular Neuts Not Reportable 08/27/16 06:09 Smudge Cells Not Reportable 08/27/16 06:09 Toxic Granulation Not Reportable 08/27/16 06:09 Toxic Vacuolation Not Reportable 08/27/16 06:09 Dohle Bodies Not Reportable 08/27/16 06:09 Pelger-Huet Anomaly Not Reportable 08/27/16 06:09 Quynh Rods Not Reportable 08/27/16 06:09 Platelet Estimate Not Reportable 08/27/16 06:09 Clumped Platelets Not Reportable 08/27/16 06:09 Plt Clumps, EDTA Not Reportable 08/27/16 06:09 Large Platelets Not Reportable 08/27/16 06:09 Giant Platelets Not Reportable 08/27/16 06:09 Platelet Satelliting Not Reportable 08/27/16 06:09 Plt Morphology Comment Not Reportable 08/27/16 06:09 RBC Morphology Not Reportable 08/27/16 06:09 Dimorphic RBCs Not Reportable 08/27/16 06:09 Polychromasia Not Reportable 08/27/16 06:09 Hypochromasia Few 08/27/16 06:09 Poikilocytosis Not Reportable 08/27/16 06:09 Anisocytosis 1+ 08/27/16 06:09 Microcytosis Not Reportable 08/27/16 06:09 Macrocytosis Not Reportable 08/27/16 06:09 Spherocytes Not Reportable 08/27/16 06:09 Pappenheimer Bodies Not Reportable 08/27/16 06:09 Sickle Cells Not Reportable 08/27/16 06:09 Target Cells Not Reportable 08/27/16 06:09 Tear Drop Cells Not Reportable 08/27/16 06:09 Ovalocytes Not Reportable 08/27/16 06:09 Stomatocytes 1+ 08/24/16 05:49 Helmet Cells Not Reportable 08/27/16 06:09 [place] Bodies Not Reportable 08/27/16 06:09 [place] Rings Not Reportable 08/27/16 06:09 [place] Cells Not Reportable 08/27/16 06:09 Bite Cells Not Reportable 08/27/16 06:09 Crenated Cell Not Reportable 08/27/16 06:09 Elliptocytes Not Reportable 08/27/16 06:09 Acanthocytes (Spur) Not Reportable 08/27/16 06:09 Rouleaux Not Reportable 08/27/16 06:09 Hemoglobin C Crystals Not Reportable 08/27/16 06:09 Schistocytes Not Reportable 08/27/16 06:09 Malaria parasites Not Reportable 08/27/16 06:09 Percent Retic 2.01 % (0.78-2.58) 08/12/16 12:16 Vinny Bodies Not Reportable 08/27/16 06:09 Hem Pathologist Commnt No 08/27/16 06:09 D-Dimer 5042.20 ng/mlDDU (0-234) H 08/12/16 16:18 POC ABG pH 7.444 (7.35-7.45) 08/12/16 15:23 POC ABG pCO2 29.4 (35-45) L 08/12/16 15:23 POC ABG pO2 51 (80-105) L 08/12/16 15:23 POC ABG HCO3 20.2 08/12/16 15:23 POC ABG Total CO2 21 08/12/16 15:23 POC ABG O2 Sat 88 08/12/16 15:23 POC ABG Base Excess -4 08/12/16 15:23 FiO2 2 % 08/12/16 15:23 Sodium 143 mmol/L (137-145) 08/26/16 08:00 Potassium 3.5 mmol/L (3.6-5.0) L 08/26/16 08:00 Chloride 99.8 mmol/L (98-107) 08/26/16 08:00 Carbon Dioxide 23 mmol/L (22-30) 08/27/16 06:09 Anion Gap 20 mmol/L 08/26/16 08:00 BUN 77 mg/dL (7-17) H 08/27/16 06:09 Creatinine 3.5 mg/dL (0.7-1.2) H 08/27/16 06:09 Estimated GFR 16 ml/min 08/27/16 06:09 BUN/Creatinine Ratio 22.00 % 08/27/16 06:09 Glucose 127 mg/dL (65-100) H 08/27/16 06:09 POC Glucose 200 (70-105) H 08/29/16 05:52 Lactic Acid 2.0 mmol/L (0.7-2.0) 08/12/16 05:30 Calcium 8.2 mg/dL (8.4-10.2) L 08/27/16 06:09 Magnesium 2.2 mg/dL (1.7-2.3) 08/11/16 15:28 Iron 62 ug/dL (37-170) 08/12/16 12:16 TIBC 101 mcg/dL (250-450) L 08/12/16 12:16 Ferritin 2000.0 ng/mL (13.0-400.0) H 08/12/16 12:16 Total Bilirubin 1.0 mg/dL (0.1-1.2) 08/11/16 15:28 AST 258 units/L (5-40) H 08/11/16 15:28 ALT 201 units/L (7-56) H 08/11/16 15:28 Alkaline Phosphatase 458 units/L (35-129) H 08/11/16 15:28 Ammonia 49.0 umol/L (25-60) 08/15/16 06:00 Lactate Dehydrogenase 276 units/L (91-180) H 08/12/16 12:16 Total Creatine Kinase 172 units/L (30-135) H 08/27/16 06:09 C-Reactive Protein 37.70 mg/dL (0.00-1.30) H 08/11/16 15:28 Total Protein 7.1 g/dL (6.3-8.2) 08/11/16 15:28 Albumin 2.3 g/dL (3.9-5) L 08/11/16 15:28 Albumin/Globulin Ratio 0.5 % 08/11/16 15:28 Vitamin B12 1117 pg/mL (211-911) H 08/12/16 12:16 Folate 18.10 ng/mL (7.3-26.0) 08/12/16 12:16 TSH 1.360 mlU/mL (0.270-4.200) 08/11/16 15:28 Urine Color [place] (Yellow) 08/11/16 15:17 Urine Turbidity Turbid (Clear) 08/11/16 15:17 Urine pH 5.0 (5.0-7.0) 08/11/16 15:17 Ur Specific [place] 1.022 (1.003-1.030) 08/11/16 15:17 Urine Protein >500 mg/dL (Negative) 08/11/16 15:17 Urine Glucose (UA) Neg mg/dL (Negative) 08/11/16 15:17 Urine Ketones Tr mg/dL (Negative) 08/11/16 15:17 Urine Blood Sm (Negative) 08/11/16 15:17 Urine Nitrite Neg (Negative) 08/11/16 15:17 Ur Reducing Substances Not Reportable 08/11/16 15:17 Urine Bilirubin Neg (Negative) 08/11/16 15:17 Urine Ictotest Not Reportable 08/11/16 15:17 Urine Urobilinogen < 2.0 mg/dL (<2.0) 08/11/16 15:17 Ur Leukocyte Esterase Mod (Negative) 08/11/16 15:17 Urine WBC (Auto) > 182.0 /HPF (0.0-6.0) H 08/11/16 15:17 Urine RBC (Auto) 48.0 /HPF (0.0-6.0) 08/11/16 15:17 U Epithel Cells (Auto) 4.0 /HPF (0-13.0) 08/11/16 15:17 Urine Bacteria (Auto) 4+ /HPF (Negative) 08/11/16 15:17 Urine HCG, Qual Negative (Negative) 08/11/16 15:17 Random Vancomycin 13.7 ug/mL (0-40.0) 08/15/16 06:00 Salicylates < 0.3 mg/dL (2.8-20.0) L 08/11/16 15:28 Urine Opiates Screen Presumptive negative 08/11/16 15:17 Urine Methadone Screen Presumptive negative 08/11/16 15:17 Acetaminophen < 15.0 ug/mL (10.0-30.0) 08/11/16 15:28 Ur Barbiturates Screen Presumptive negative 08/11/16 15:17 Ur Phencyclidine Scrn Presumptive negative 08/11/16 15:17 Ur Amphetamines Screen Presumptive negative 08/11/16 15:17 U Benzodiazepines Scrn Presumptive negative 08/11/16 15:17 Urine Cocaine Screen Presumptive negative 08/11/16 15:17 U Marijuana (THC) Screen Presumptive negative 08/11/16 15:17 Drugs of Abuse Note Disclamer 08/11/16 15:17 Plasma/Serum Alcohol < 0.01 gm% (0-0.07) 08/11/16 15:28 Blood Type B POSITIVE 08/11/16 19:45 Antibody Screen Negative 08/11/16 19:45 Crossmatch See Detail 08/11/16 19:45
[2016-08-29] MEDS: DUONEB 0.5 MG-3 MG/3 ML SOLN IH SCH ×3 (09:39→20:50)
--- NOTE | 2016-08-29 09:47 | Progress Note ---
Assessment and Plan Impression: * ESRD * Sepsis * VRE and ESBL Klebsiella pneumoniae bacteremia * Sacral decubiti * DM type 2 * HTN * Anemia in ESRD Plan: * abx per ID * 08/19 and 08/23 cultures no growth * renal diet * strict i/os * avoid nephrotoxins * Patient is dialysis has been switched to Mondays, Wednesdays and Fridays * Patient is currently with a femoral Vas-Cath. Will need that to be converted to a PermCath after cleared by ID Subjective Date of service: 08/29/16 Principal diagnosis: Polymicrobial bacteremia and sepsis; C. difficile infection Interval history: Patient currently on a BiPAP. Remains nonverbal. Objective - Vital Signs Vital signs: Vital Signs - 12hr 08/28/16 08/28/16 08/28/16 22:00 23:12 23:35 Temperature Pulse Rate 113 H 101 H Pulse Rate [ 105 H From Monitor] Pulse Rate [ Left Radial] Pulse Rate [ Posterior Bilateral] Pulse Rate [ Right Radial] Respiratory 22 Rate Respiratory Rate [Posterior Bilateral] Blood Pressure [Left Arm] Blood Pressure [Right Arm] O2 Sat by Pulse 100 Oximetry 08/29/16 08/29/16 08/29/16 00:19 04:00 08:18 Temperature 97.9 F 98.2 F 98.1 F Pulse Rate Pulse Rate [ 110 H From Monitor] Pulse Rate [ 117 H Left Radial] Pulse Rate [ Posterior Bilateral] Pulse Rate [ 112 H Right Radial] Respiratory 18 18 20 Rate Respiratory Rate [Posterior Bilateral] Blood Pressure 140/62 [Left Arm] Blood Pressure 133/62 126/58 [Right Arm] O2 Sat by Pulse 96 97 91 Oximetry 08/29/16 09:40 Temperature Pulse Rate Pulse Rate [ From Monitor] Pulse Rate [ Left Radial] Pulse Rate [ 110 H Posterior Bilateral] Pulse Rate [ Right Radial] Respiratory Rate Respiratory 18 Rate [Posterior Bilateral] Blood Pressure [Left Arm] Blood Pressure [Right Arm] O2 Sat by Pulse Oximetry - General Appearance General appearance: well-developed, well-nourished, appears stated age EENT: PERRL, mucous membranes moist Neck: no JVD, no thyromegaly, no carotid bruit, supple Respiratory: Present: Clear to Ascultation Cardiology: regular, normal heart rate Gastrointestinal: normal, normoactive bowel sounds Integumentary: no rash, other (right femoral Vas-Cath in place) - Lab 08/27/16 06:09 08/27/16 06:09 Most recent lab results Calcium 8.2 mg/dL (8.4-10.2) L 08/27/16 06:09 Magnesium 2.2 mg/dL (1.7-2.3) 08/11/16 15:28
[2016-08-29] MEDS ORDERED: PROVENTIL IH PRN (09:53)
--- NOTE | 2016-08-29 10:10 | Progress Note ---
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 Admitting blood cultures are grew VRE faecium & ESBL Klebsiella. Problem list: 1. Polymicrobial bacteremia and sepsis -08/16 blood cultures were still positive for VRE faecium -08/11 blood cultures with 4/4 bottles with ESBL Klebsiella pneumoniae and Vancomycin resistant Enterococcus faecium -Previous permacath source (removed 08/15) -08/19 & 08/23 blood cultures sterile 2. Left chest wall permacath infection -Status post removal 08/15 -Tip culture grew Proteus mirabilis and VRE faecium 3. C. diff. infection -Toxin assay positive 08/13 -Diarrhea improved -Now on enteral vancomycin 4. Leukocytosis -Marked elevation to 51,000 on admission -Multifactorial with bacteremia & C diff infection -Slowly trending downward. 5. Presacral pressure sore -Uninfected at present 6. End-stage renal failure -Left chest PermCath - removal 08/15 7. Status post right hemispheral stroke -Left hemiplegia 8. Lactic acidosis -Secondary to #1 -Resolved 8. Type 2 DM PLAN: 1. Continue Meropenem versus the ESBL Klebsiella blood isolate. Plan 2 weeks of therapy after first negative blood cultures: Stop date 09/02 2. Continue daptomycin versus the VRE: Plan 2 weeks of therapy after first negative blood cultures: Stop date 09/02 3. Continue enteral vancomycin vs C diff infection 4. Glycemic control as per the primary team 5. Follow-up on repeat blood cultures which were drawn on 08/23 6. Continue C. difficile & VRE isolation precautions 7. If bacteremic again may need to consider NILSON Arash Prokesch MD [facility] Office: [phone] Subjective Date of service: 08/29/16 Principal diagnosis: Polymicrobial bacteremia and sepsis; C. difficile infection Interval history: No obvious complaints. No acute distress. Remains confused but not agitated at present. ROS: not obtainable secondary to her menatl status. Objective - Exam Narrative Exam: GENERAL: Well-developed, chronically ill-appearing female who is alert and in no acute distress, calling out for the nurse. HEENT: Pupils are equal reactive to light and accommodation. Conjunctiva clear. Bilateral arcus senilis. Oropharynx is normal with no evidence of oral candidiasis or pharyngitis. Patient is edentulous. NECK: Supple. No enlargement of the thyroid gland. No significant cervical lymphadenopathy. No jugular venous distention at 30. LUNGS: Clear with no adventitious sounds. CHEST: Previous left vas cath site with no signs of infection. Not tender to palpation and no drainage visible. HEART: Regular rate. S1 and S2 are normal. There are no gallops, clicks or rubs heard. II/ JOSEPHINE heard best over the LUSB. No diastolic murmur. ABDOMEN: Soft and nontender. Liver and spleen are not palpably enlarged or tender. No palpable masses. Bowel sounds are normoactive. PEG site is clean with no signs of infection. : Not examined today EXTREMITIES: No rash, peripheral lymphadenopathy, clubbing or edema. Right femoral vas cath in place with no signs of infection on exam. SKIN: Bilateral feet dressings intact. Presacral pressure sore not examined today. NEUROLOGIC: Left hemiplegia. Alert. Oriented to person only. - Constitutional Vitals: Vital Signs Temp Pulse Resp BP Pulse Ox 98.1 F 115 H 16 140/62 96 08/29/16 08:18 08/29/16 09:49 08/29/16 09:49 08/29/16 08:18 08/29/16 09:50 Temperature -Last 24 Hours Temperature 98.1 F Temperature 98.2 F Temperature 97.9 F Temperature 98.2 F Temperature 98.5 F Temperature 98.4 F - Labs CBC & Chem 7: 08/27/16 06:09 08/27/16 06:09 Labs: Abnormal lab results Microbiology 08/23/16 14:46 Peripheral/Venous Blood Culture - Preliminary NO GROWTH 08/23/16 11:18 Peripheral/Venous Blood Culture - Preliminary NO GROWTH 08/19/16 16:48 Peripheral/Venous Blood Culture - Preliminary NO GROWTH AFTER 4 DAYS 08/19/16 16:48 Peripheral/Venous Blood Culture - Preliminary NO GROWTH AFTER 4 DAYS 08/16/16 10:42 Peripheral/Venous Blood Culture - 2/2 bottles with Enterococcal faecium (Vancomycin & penicillin resistant) 08/16/16 10:28 Peripheral/Venous Blood Culture - 2/2 bottles with Enterococcal faecium (Vancomycin & penicillin resistant) 08/15/16 Unknown Vascular Cath Catheter Tip Culture Proteus mirabilis (only resistant to quinolones) Vancomycin resistant Enterococcus faecium 08/12/16 11:41 Vascular Cath Blood Culture - Preliminary Klebsiella Pneumoniae (ESBL strain, quinolone resistant, carbapenem sensitive) Enterococcus faecium (Vancomycin resistant) 08/12/16 11:41 Peripheral/Venous Blood Culture - 2/2 bottles with Enterococcus faecium (Vancomycin & penicillin resistant) 08/11/16 18:31 Peripheral/Venous Blood Culture - Preliminary Klebsiella Pneumoniae Enterococcus faecium 08/11/16 18:31 Peripheral/Venous Blood Culture - Preliminary Klebsiella Pneumoniae Enterococcus faecium 08/12/16 16:55 Stool C. difficile DNA Amplification - Positive Imagin/30: Abdominal films: No free air. No evidence of megacolon.
[2016-08-29] MEDS ORDERED: HEPARIN/NS 5000 UNIT/500ML(CATH LAB) 500 ML IR ONE (10:49)
[2016-08-29] MEDS ORDERED: XYLOCAINE 1%/ EPI 1:100,000 INFILTRATI ONE (10:50)
[2016-08-29] MEDS ORDERED: NACL 0.9% 250ML 250 ML ONE (11:09)
[2016-08-29] MEDS: CUBICIN IV SCH (11:10)
[2016-08-29] MEDS: KEPPRA PO SCH ×2 (11:10→20:19)
[2016-08-29] MEDS: NACL 0.9% IV SCH (11:10)
[2016-08-29] MEDS: HEPARIN SUB-Q SCH ×2 (11:10→20:21)
[2016-08-29] MEDS: PEPCID PO SCH (11:11)
[2016-08-29] MEDS: SODIUM BICARBONATE PO SCH ×2 (11:11→20:18)
[2016-08-29] MEDS: MERREM 1,000 MG in NACL 0.9% 100 ML IV SCH (11:11)
[2016-08-29] MEDS ORDERED: ANCEF/STERILE WATER 2 GM/20 ML 20 ML IV ONE (11:15)
[2016-08-29] MEDS: VERSED ONE ×4 (11:25→12:07)
[2016-08-29] MEDS: SUBLIMAZE ONE ×4 (11:26→12:08)
[2016-08-29 11:42] LABS: ISTAT Base Excess 2; ISTAT DEVICE 0; ISTAT HCO3 25.7; ISTAT PCO2 37.3 (35-45); ISTAT PH 7.446 (7.35-7.45); ISTAT PO2 60 (80-105); ISTAT SO2 92; ISTAT TCO2 27
--- NOTE | 2016-08-29 11:54 | XRay Report ---
CHEST 2 VIEWS: INDICATION: Follow-up pneumonia. COMPARISON: 08/19/16 FINDINGS: Frontal and crosstable lateral chest radiographs, 3 images, again demonstrate hypoinflation with exaggerated cardiomediastinal silhouette and increased perihilar markings and right more than left basilar atelectasis. No large pleural effusions or CHF. Pulmonary arterial hypertension suspected. Aortic knob calcifications. Stable right upper extremity PICC tip along the SVC. Some extrinsic artifacts. Stable bones with thoracic spondylosis. CONCLUSION: Stable hypoinflation, atelectasis and right upper extremity PICC, as described. Thank you for the opportunity to participate in this patient's care.
[2016-08-29] MEDS ORDERED: BENADRYL ONE (11:56)
[2016-08-29] MEDS: HEPARIN 10,000 UNITS/10 ML ONE ×2 (12:21→12:22)
--- NOTE | 2016-08-29 12:37 | Operative Report ---
Operative Report Operative Report: EXAM: 1. Ultrasound-guided puncture of the left internal jugular vein 2. Fluoroscopic-guided placement of a left internal jugular tunneled cuffed hemodialysis catheter. DATE: 08/29/16 INDICATION: End-stage renal disease requiring PermCath placement. MEDICATIONS: Please see nursing report for full details. DEVICES: 27 cm tip to cuff 15 Fr dual lumen hemodialysis catheter TRAFFIC CONTROL OFFICER: ADITHYA ANTOINE MD CONTRAST: None PROCEDURE: The risks, benefits, and alternatives were discussed and informed consent was obtained. The patient was transported to the angiography suite in satisfactory/ stable condition and was transported onto the angiography table. The patient's left internal jugular vein was assessed with ultrasound and determined to be patent prior to procedure. Right internal jugular vein was occluded. The patient was prepped and draped in a sterile fashion. The puncture site was anesthetized. Under sonographic guidance, the left internal jugular vein was punctured with a 21-gauge micropuncture needle and a 0.018 inch wire was advanced into the inferior vena cava. The micropuncture needle was exchanged for a transitional dilator and the wire was retracted into the right atrium to lucas intravascular distance. The wire and inner dilator were removed. 0.035 inch Amplatz wire was advanced through the transitional dilator could not be easily passed into the inferior vena cava. Transitional dilator was exchanged for vertebral catheter which was used to navigate the Amplatz wire into the inferior vena cava. Vertebral catheter was then exchanged for a transitional dilator. A suitable exit site was identified on the patient's chest inferior and lateral to the venotomy. The site was anesthetized with local anesthetic and the track was anesthetized. Dermatotomy was made. The PermCath was attached to the tunneling device and tunneled between the dermatotomy to the venotomy. Over the 0.035 inch wire, serial dilatation was performed with ultimate placement of a peel-away sheath. The catheter was advanced through the peel- away sheath after the wire was removed and positioned centrally under fluoroscopic guidance. The peel-away sheath was removed. There is a small kink in the catheter. 0.035 inch stiff Glidewire was advanced to the catheter and use to reduce the kink. Wire was removed. 4-0 Vicryl suture was used to close the venotomy and Dermabond was then applied. 2-0 Ethilon suture was used to secure the catheter at the dermatotomy. The catheter was charged with heparin thousand units per milliliter of space. The patient was transferred from the angiography suite back to the floor in stable condition. FINDINGS: 1. Excellent flow was obtained through the dialysis catheter with 20 mL syringes. 2. The catheter tip is in the right atrium. IMPRESSION: 1. Successful ultrasound and fluoroscopically guided placement of a left internal jugular tunneled cuffed hemodialysis catheter.
[2016-08-29] MEDS: PROCRIT IV PRN (18:22)
[2016-08-29] MEDS: HEPARIN IV PRN (18:23)
[2016-08-29] MEDS: MORPHINE IV PRN (20:19)
[2016-08-29] MEDS: ATIVAN IV PRN (20:34)
--- NOTE | 2016-08-29 20:36 | Progress Note ---
Assessment and Plan Patient awake , resting at this time On 1 litre O2.No acute respiratory distress. O2 satuaration 100% .Patient afebrile. - Patient Problems (1) Sepsis due to Klebsiella Current Visit: Yes Status: Acute Plan to address problem: 08/24/16 Patient is presently on merepenum and vancomycin. 08/27/16 Patient presently on daptomycin and vancomycin. and merepenum. (2) Septic shock Current Visit: Yes Status: Acute Plan to address problem: Improving. Patient is on norepinephrine. Continue present I/V Fluids NSS. Continue present antibiotics. Linozelid, merepenum and metranidazole. Continue Hydrocortizone. 08/19/16 Patient off the norepinephrine. 08/24/16 Patient off the norepinephrine Patient is on merepenum and vancomycin. 08/27/15 Patient presently on daptomycin, vancomycin and merepenum. (3) Clostridium difficile colitis Current Visit: Yes Status: Acute Plan to address problem: 08/24/16 Patient off the metranidazole. Management as per infectious diseases. (4) Altered mental status Current Visit: Yes Status: Acute Plan to address problem: Management as per primary care. (5) End stage renal disease Current Visit: Yes Status: Chronic Plan to address problem: Management as per nephrology. (6) Lactic acidosis Current Visit: Yes Status: Acute Plan to address problem: Bicarb is 16, patient compensated. Obtaining blood gases. 08/24/15 Improved. (7) Seizure disorder Current Visit: Yes Status: Chronic Plan to address problem: Patient is on Keppra. Subjective Date of service: 08/29/16 Principal diagnosis: Polymicrobial bacteremia and sepsis; C. difficile infection Interval history: Patient awake and resting on 2 litre O2..No acute respiratory distress. O2 satuaration 100% .Patient afebrile. Objective Vital Signs - 12hr 08/29/16 08/29/16 08/29/16 09:40 09:49 09:50 Temperature Pulse Rate Pulse Rate [ 110 H 115 H Posterior Bilateral] Pulse Rate [ Right Radial] Respiratory Rate Respiratory 18 16 Rate [Posterior Bilateral] Blood Pressure Blood Pressure [Right Arm] O2 Sat by Pulse 96 Oximetry 08/29/16 08/29/16 08/29/16 10:51 13:00 14:08 Temperature Pulse Rate 95 H Pulse Rate [ 109 H Posterior Bilateral] Pulse Rate [ Right Radial] Respiratory Rate Respiratory 16 Rate [Posterior Bilateral] Blood Pressure Blood Pressure [Right Arm] O2 Sat by Pulse 100 96 Oximetry 08/29/16 08/29/16 08/29/16 14:18 15:20 15:30 Temperature 98.1 F Pulse Rate 110 H 107 H Pulse Rate [ 113 H Posterior Bilateral] Pulse Rate [ Right Radial] Respiratory 18 Rate Respiratory 16 Rate [Posterior Bilateral] Blood Pressure 138/65 124/59 Blood Pressure [Right Arm] O2 Sat by Pulse Oximetry 08/29/16 08/29/16 08/29/16 15:45 16:00 16:15 Temperature Pulse Rate 107 H 107 H 114 H Pulse Rate [ Posterior Bilateral] Pulse Rate [ Right Radial] Respiratory Rate Respiratory Rate [Posterior Bilateral] Blood Pressure 123/59 131/60 134/55 Blood Pressure [Right Arm] O2 Sat by Pulse Oximetry 08/29/16 08/29/16 08/29/16 16:30 16:45 17:00 Temperature Pulse Rate 114 H 111 H 113 H Pulse Rate [ Posterior Bilateral] Pulse Rate [ Right Radial] Respiratory Rate Respiratory Rate [Posterior Bilateral] Blood Pressure 128/63 124/56 125/62 Blood Pressure [Right Arm] O2 Sat by Pulse Oximetry 08/29/16 08/29/16 08/29/16 17:15 17:30 17:45 Temperature Pulse Rate 110 H 120 H 115 H Pulse Rate [ Posterior Bilateral] Pulse Rate [ Right Radial] Respiratory Rate Respiratory Rate [Posterior Bilateral] Blood Pressure 118/57 130/64 112/54 Blood Pressure [Right Arm] O2 Sat by Pulse Oximetry 08/29/16 08/29/16 08/29/16 18:00 18:07 18:15 Temperature 98.2 F Pulse Rate 112 H 120 H Pulse Rate [ Posterior Bilateral] Pulse Rate [ 115 H Right Radial] Respiratory 18 Rate Respiratory Rate [Posterior Bilateral] Blood Pressure 103/58 140/64 Blood Pressure 112/54 [Right Arm] O2 Sat by Pulse Oximetry 08/29/16 08/29/16 08/29/16 18:30 18:45 20:19 Temperature 98.2 F Pulse Rate 122 H 120 H Pulse Rate [ Posterior Bilateral] Pulse Rate [ Right Radial] Respiratory 101 H 20 Rate Respiratory Rate [Posterior Bilateral] Blood Pressure 140/66 139/71 Blood Pressure [Right Arm] O2 Sat by Pulse Oximetry Constitutional: no acute distress, asleep, other (somnolent) Eyes: non-icteric ENT: oropharynx moist Neck: supple Effort: normal Ascultation: Bilateral: diminished breath sounds, rhonchi (scant in bases) Cardiovascular: regular rate and rhythm Gastrointestinal: normoactive bowel sounds, soft, non-tender, non-distended Integumentary: normal Extremities: no cyanosis, no edema, no ischemia or petechiae, other (dressings to feet) Neurologic: non-focal exam (grossly), pupils equal and round, motor strength normal and Psychiatric: other (unable to assess) CBC and BMP: 08/27/16 06:09 08/27/16 06:09 ABG, PT/INR, D-dimer: ABG POC ABG pH 7.446 (7.35-7.45) 08/29/16 10:51 POC ABG pCO2 37.3 (35-45) 08/29/16 10:51 POC ABG pO2 60 (80-105) L 08/29/16 10:51 POC ABG HCO3 25.7 08/29/16 10:51 POC ABG Total CO2 27 08/29/16 10:51 POC ABG O2 Sat 92 08/29/16 10:51 PT/INR, D-dimer D-Dimer 5042.20 ng/mlDDU (0-234) H 08/12/16 16:18 Abnormal lab findings: Abnormal Labs 08/11/16 08/11/16 08/12/16 19:45 23:01 02:35 WBC RBC Hgb Hct RDW Lymph % (Auto) [place] % (Auto) [place] # Seg Neutrophils % Seg Neuts % (Manual) Lymphocytes % (Manual) Monocytes % (Manual) Seg Neutrophils # Seg Neutrophils # Man Monocytes # (Manual) Eosinophils # (Manual) D-Dimer POC ABG pCO2 POC ABG pO2 Sodium Potassium Chloride Carbon Dioxide BUN Creatinine Glucose POC Glucose 307 H Lactic Acid 3.5 H* Calcium TIBC Ferritin Lactate Dehydrogenase Total Creatine Kinase Vitamin B12 Crossmatch See Detail 08/12/16 08/12/16 08/12/16 05:30 05:30 11:09 WBC 38.6 H RBC 3.14 L Hgb 8.7 L Hct 28.1 L D RDW 18.3 H Lymph % (Auto) [place] % (Auto) [place] # Seg Neutrophils % Seg Neuts % (Manual) Lymphocytes % (Manual) 9.0 L Monocytes % (Manual) 8.0 H Seg Neutrophils # Seg Neutrophils # Man 16.6 H Monocytes # (Manual) 3.1 H Eosinophils # (Manual) 1.2 H D-Dimer POC ABG pCO2 POC ABG pO2 Sodium 133 L Potassium 3.0 L Chloride 92.4 L Carbon Dioxide 21 L BUN 44 H Creatinine 2.3 H Glucose 270 H POC Glucose 247 H Lactic Acid Calcium 8.2 L TIBC Ferritin Lactate Dehydrogenase Total Creatine Kinase Vitamin B12 Crossmatch 08/12/16 08/12/16 08/12/16 12:16 12:16 12:16 WBC RBC Hgb Hct RDW Lymph % (Auto) [place] % (Auto) [place] # Seg Neutrophils % Seg Neuts % (Manual) Lymphocytes % (Manual) Monocytes % (Manual) Seg Neutrophils # Seg Neutrophils # Man Monocytes # (Manual) Eosinophils # (Manual) D-Dimer POC ABG pCO2 POC ABG pO2 Sodium Potassium Chloride Carbon Dioxide BUN Creatinine Glucose POC Glucose Lactic Acid Calcium TIBC Ferritin 2000.0 H Lactate Dehydrogenase 276 H Total Creatine Kinase Vitamin B12 1117 H Crossmatch 08/12/16 08/12/16 08/12/16 12:16 15:23 16:18 WBC RBC Hgb Hct RDW Lymph % (Auto) [place] % (Auto) [place] # Seg Neutrophils % Seg Neuts % (Manual) Lymphocytes % (Manual) Monocytes % (Manual) Seg Neutrophils # Seg Neutrophils # Man Monocytes # (Manual) Eosinophils # (Manual) D-Dimer 5042.20 H POC ABG pCO2 29.4 L POC ABG pO2 51 L Sodium Potassium Chloride Carbon Dioxide BUN Creatinine Glucose POC Glucose Lactic Acid Calcium TIBC 101 L Ferritin Lactate Dehydrogenase Total Creatine Kinase Vitamin B12 Crossmatch 08/12/16 08/12/16 08/13/16 17:45 23:36 06:58 WBC RBC Hgb Hct RDW Lymph % (Auto) [place] % (Auto) [place] # Seg Neutrophils % Seg Neuts % (Manual) Lymphocytes % (Manual) Monocytes % (Manual) Seg Neutrophils # Seg Neutrophils # Man Monocytes # (Manual) Eosinophils # (Manual) D-Dimer POC ABG pCO2 POC ABG pO2 Sodium Potassium Chloride Carbon Dioxide BUN Creatinine Glucose POC Glucose 196 H 170 H 199 H Lactic Acid Calcium TIBC Ferritin Lactate Dehydrogenase Total Creatine Kinase Vitamin B12 Crossmatch 08/13/16 08/13/16 08/13/16 11:25 16:29 21:10 WBC RBC Hgb Hct RDW Lymph % (Auto) [place] % (Auto) [place] # Seg Neutrophils % Seg Neuts % (Manual) Lymphocytes % (Manual) Monocytes % (Manual) Seg Neutrophils # Seg Neutrophils # Man Monocytes # (Manual) Eosinophils # (Manual) D-Dimer POC ABG pCO2 POC ABG pO2 Sodium Potassium Chloride Carbon Dioxide BUN Creatinine Glucose POC Glucose 267 H 277 H 203 H Lactic Acid Calcium TIBC Ferritin Lactate Dehydrogenase Total Creatine Kinase Vitamin B12 Crossmatch 08/13/16 08/13/16 08/14/16 Unknown Unknown 07:42 WBC 30.0 H RBC 2.75 L Hgb 7.8 L Hct 24.0 L RDW 18.4 H Lymph % (Auto) [place] % (Auto) [place] # Seg Neutrophils % Seg Neuts % (Manual) 75.0 H Lymphocytes % (Manual) 7.0 L Monocytes % (Manual) Seg Neutrophils # Seg Neutrophils # Man 22.5 H Monocytes # (Manual) Eosinophils # (Manual) D-Dimer POC ABG pCO2 POC ABG pO2 Sodium 133 L Potassium 3.4 L Chloride 95.2 L Carbon Dioxide 18 L BUN 58 H Creatinine 2.9 H Glucose 201 H POC Glucose 306 H Lactic Acid Calcium 8.2 L TIBC Ferritin Lactate Dehydrogenase Total Creatine Kinase Vitamin B12 Crossmatch 08/14/16 08/14/16 08/14/16 08:26 08:26 11:19 WBC 28.9 H RBC 2.92 L Hgb 8.2 L Hct 25.9 L RDW 18.8 H Lymph % (Auto) [place] % (Auto) [place] # Seg Neutrophils % Seg Neuts % (Manual) 85.5 H Lymphocytes % (Manual) 4.5 L Monocytes % (Manual) Seg Neutrophils # Seg Neutrophils # Man 24.7 H Monocytes # (Manual) 0.9 H Eosinophils # (Manual) D-Dimer POC ABG pCO2 POC ABG pO2 Sodium Potassium Chloride Carbon Dioxide 15 L BUN 77 H Creatinine 3.5 H Glucose 289 H POC Glucose 274 H Lactic Acid Calcium 8.3 L TIBC Ferritin Lactate Dehydrogenase Total Creatine Kinase Vitamin B12 Crossmatch 08/14/16 08/14/16 08/15/16 15:56 21:12 06:00 WBC 30.1 H RBC 2.67 L Hgb 7.8 L Hct 23.4 L RDW 18.4 H Lymph % (Auto) [place] % (Auto) [place] # Seg Neutrophils % Seg Neuts % (Manual) 86.0 H Lymphocytes % (Manual) 4.0 L Monocytes % (Manual) Seg Neutrophils # Seg Neutrophils # Man 25.9 H Monocytes # (Manual) 1.8 H Eosinophils # (Manual) D-Dimer POC ABG pCO2 POC ABG pO2 Sodium Potassium Chloride Carbon Dioxide BUN Creatinine Glucose POC Glucose 284 H 357 H Lactic Acid Calcium TIBC Ferritin Lactate Dehydrogenase Total Creatine Kinase Vitamin B12 Crossmatch 08/15/16 08/15/16 08/15/16 06:00 11:17 16:43 WBC RBC Hgb Hct RDW Lymph % (Auto) [place] % (Auto) [place] # Seg Neutrophils % Seg Neuts % (Manual) Lymphocytes % (Manual) Monocytes % (Manual) Seg Neutrophils # Seg Neutrophils # Man Monocytes # (Manual) Eosinophils # (Manual) D-Dimer POC ABG pCO2 POC ABG pO2 Sodium Potassium 3.5 L Chloride 96.6 L Carbon Dioxide 21 L BUN 51 H Creatinine 2.6 H Glucose 214 H POC Glucose 280 H 257 H Lactic Acid Calcium 8.3 L TIBC Ferritin Lactate Dehydrogenase Total Creatine Kinase Vitamin B12 Crossmatch 08/15/16 08/16/16 08/16/16 23:40 05:25 07:20 WBC RBC Hgb Hct RDW Lymph % (Auto) [place] % (Auto) [place] # Seg Neutrophils % Seg Neuts % (Manual) Lymphocytes % (Manual) Monocytes % (Manual) Seg Neutrophils # Seg Neutrophils # Man Monocytes # (Manual) Eosinophils # (Manual) D-Dimer POC ABG pCO2 POC ABG pO2 Sodium Potassium Chloride Carbon Dioxide BUN Creatinine Glucose POC Glucose 179 H 140 H 147 H Lactic Acid Calcium TIBC Ferritin Lactate Dehydrogenase Total Creatine Kinase Vitamin B12 Crossmatch 08/16/16 08/16/16 08/16/16 09:20 09:20 11:28 WBC 35.1 H RBC 2.78 L Hgb 7.9 L Hct 24.7 L RDW 18.5 H Lymph % (Auto) [place] % (Auto) [place] # Seg Neutrophils % Seg Neuts % (Manual) Lymphocytes % (Manual) Monocytes % (Manual) Seg Neutrophils # Seg Neutrophils # Man Monocytes # (Manual) Eosinophils # (Manual) D-Dimer POC ABG pCO2 POC ABG pO2 Sodium 136 L Potassium 3.5 L Chloride Carbon Dioxide 17 L BUN 62 H Creatinine 3.3 H Glucose 128 H POC Glucose 150 H Lactic Acid Calcium 7.7 L TIBC Ferritin Lactate Dehydrogenase Total Creatine Kinase Vitamin B12 Crossmatch 08/16/16 08/16/16 08/17/16 15:39 23:45 05:03 WBC RBC Hgb Hct RDW Lymph % (Auto) [place] % (Auto) [place] # Seg Neutrophils % Seg Neuts % (Manual) Lymphocytes % (Manual) Monocytes % (Manual) Seg Neutrophils # Seg Neutrophils # Man Monocytes # (Manual) Eosinophils # (Manual) D-Dimer POC ABG pCO2 POC ABG pO2 Sodium Potassium Chloride Carbon Dioxide BUN Creatinine Glucose POC Glucose 106 H 156 H 287 H Lactic Acid Calcium TIBC Ferritin Lactate Dehydrogenase Total Creatine Kinase Vitamin B12 Crossmatch 08/17/16 08/17/16 08/17/16 08:40 08:40 12:11 WBC 37.0 H RBC 2.91 L Hgb 8.3 L Hct 25.8 L RDW 18.5 H Lymph % (Auto) [place] % (Auto) [place] # Seg Neutrophils % Seg Neuts % (Manual) Lymphocytes % (Manual) Monocytes % (Manual) Seg Neutrophils # Seg Neutrophils # Man Monocytes # (Manual) Eosinophils # (Manual) D-Dimer POC ABG pCO2 POC ABG pO2 Sodium 136 L Potassium Chloride 96.0 L Carbon Dioxide 16 L BUN 78 H Creatinine 4.0 H Glucose 330 H POC Glucose 345 H Lactic Acid Calcium 8.3 L TIBC Ferritin Lactate Dehydrogenase Total Creatine Kinase Vitamin B12 Crossmatch 08/17/16 08/17/16 08/17/16 15:34 17:40 20:07 WBC RBC Hgb Hct RDW Lymph % (Auto) [place] % (Auto) [place] # Seg Neutrophils % Seg Neuts % (Manual) Lymphocytes % (Manual) Monocytes % (Manual) Seg Neutrophils # Seg Neutrophils # Man Monocytes # (Manual) Eosinophils # (Manual) D-Dimer POC ABG pCO2 POC ABG pO2 Sodium Potassium Chloride Carbon Dioxide BUN Creatinine Glucose POC Glucose < 40 L 403 H 439 H Lactic Acid Calcium TIBC Ferritin Lactate Dehydrogenase Total Creatine Kinase Vitamin B12 Crossmatch 08/18/16 08/18/16 08/18/16 00:16 05:03 12:34 WBC RBC Hgb Hct RDW Lymph % (Auto) [place] % (Auto) [place] # Seg Neutrophils % Seg Neuts % (Manual) Lymphocytes % (Manual) Monocytes % (Manual) Seg Neutrophils # Seg Neutrophils # Man Monocytes # (Manual) Eosinophils # (Manual) D-Dimer POC ABG pCO2 POC ABG pO2 Sodium Potassium Chloride Carbon Dioxide BUN Creatinine Glucose POC Glucose 457 H 388 H 313 H Lactic Acid Calcium TIBC Ferritin Lactate Dehydrogenase Total Creatine Kinase Vitamin B12 Crossmatch 08/18/16 08/18/16 08/19/16 13:16 17:50 02:14 WBC RBC Hgb Hct RDW Lymph % (Auto) [place] % (Auto) [place] # Seg Neutrophils % Seg Neuts % (Manual) Lymphocytes % (Manual) Monocytes % (Manual) Seg Neutrophils # Seg Neutrophils # Man Monocytes # (Manual) Eosinophils # (Manual) D-Dimer POC ABG pCO2 POC ABG pO2 Sodium Potassium Chloride Carbon Dioxide 15 L BUN 100 H Creatinine 4.5 H Glucose 286 H POC Glucose 195 H 118 H Lactic Acid Calcium 8.3 L TIBC Ferritin Lactate Dehydrogenase Total Creatine Kinase Vitamin B12 Crossmatch 08/19/16 08/19/16 08/19/16 12:23 12:23 17:35 WBC 30.9 H RBC 3.45 L Hgb 9.7 L Hct RDW 18.6 H Lymph % (Auto) [place] % (Auto) [place] # Seg Neutrophils % Seg Neuts % (Manual) 89.5 H Lymphocytes % (Manual) 6.0 L Monocytes % (Manual) Seg Neutrophils # Seg Neutrophils # Man 27.7 H Monocytes # (Manual) Eosinophils # (Manual) D-Dimer POC ABG pCO2 POC ABG pO2 Sodium Potassium Chloride Carbon Dioxide 16 L BUN 116 H Creatinine 5.0 H Glucose 102 H POC Glucose 181 H Lactic Acid Calcium TIBC Ferritin Lactate Dehydrogenase Total Creatine Kinase Vitamin B12 Crossmatch 08/19/16 08/20/16 08/20/16 23:56 06:03 06:31 WBC RBC Hgb Hct RDW Lymph % (Auto) [place] % (Auto) [place] # Seg Neutrophils % Seg Neuts % (Manual) Lymphocytes % (Manual) Monocytes % (Manual) Seg Neutrophils # Seg Neutrophils # Man Monocytes # (Manual) Eosinophils # (Manual) D-Dimer POC ABG pCO2 POC ABG pO2 Sodium Potassium Chloride Carbon Dioxide BUN Creatinine Glucose POC Glucose 239 H 278 H 286 H Lactic Acid Calcium TIBC Ferritin Lactate Dehydrogenase Total Creatine Kinase Vitamin B12 Crossmatch 08/20/16 08/20/16 08/20/16 07:55 07:55 12:53 WBC 28.6 H RBC 3.45 L Hgb 9.7 L Hct RDW 18.7 H Lymph % (Auto) [place] % (Auto) [place] # Seg Neutrophils % Seg Neuts % (Manual) 93.0 H Lymphocytes % (Manual) 5.5 L Monocytes % (Manual) Seg Neutrophils # Seg Neutrophils # Man 26.6 H Monocytes # (Manual) Eosinophils # (Manual) D-Dimer POC ABG pCO2 POC ABG pO2 Sodium Potassium Chloride Carbon Dioxide 15 L BUN 134 H Creatinine 5.1 H Glucose 284 H POC Glucose 242 H Lactic Acid Calcium 8.1 L TIBC Ferritin Lactate Dehydrogenase Total Creatine Kinase Vitamin B12 Crossmatch 08/21/16 08/21/16 08/21/16 00:32 04:00 11:55 WBC RBC Hgb Hct RDW Lymph % (Auto) [place] % (Auto) [place] # Seg Neutrophils % Seg Neuts % (Manual) Lymphocytes % (Manual) Monocytes % (Manual) Seg Neutrophils # Seg Neutrophils # Man Monocytes # (Manual) Eosinophils # (Manual) D-Dimer POC ABG pCO2 POC ABG pO2 Sodium Potassium Chloride 96.2 L Carbon Dioxide 18 L BUN 95 H Creatinine 3.6 H Glucose 208 H POC Glucose 210 H 316 H Lactic Acid Calcium 8.0 L TIBC Ferritin Lactate Dehydrogenase Total Creatine Kinase Vitamin B12 Crossmatch 08/21/16 08/21/16 08/22/16 21:20 Unknown 00:51 WBC 34.9 H RBC 3.56 L Hgb 10.0 L Hct RDW 18.2 H Lymph % (Auto) [place] % (Auto) [place] # Seg Neutrophils % Seg Neuts % (Manual) 94.0 H Lymphocytes % (Manual) 4.0 L Monocytes % (Manual) Seg Neutrophils # Seg Neutrophils # Man 32.8 H Monocytes # (Manual) Eosinophils # (Manual) D-Dimer POC ABG pCO2 POC ABG pO2 Sodium Potassium Chloride Carbon Dioxide BUN Creatinine Glucose POC Glucose 156 H 208 H Lactic Acid Calcium TIBC Ferritin Lactate Dehydrogenase Total Creatine Kinase Vitamin B12 Crossmatch 08/22/16 08/22/16 08/22/16 05:16 07:05 07:05 WBC 29.9 H RBC 2.98 L Hgb 8.7 L Hct 26.7 L RDW 18.3 H Lymph % (Auto) [place] % (Auto) [place] # Seg Neutrophils % Seg Neuts % (Manual) 73.0 H Lymphocytes % (Manual) Monocytes % (Manual) 10.0 H Seg Neutrophils # Seg Neutrophils # Man 21.8 H Monocytes # (Manual) 3.0 H Eosinophils # (Manual) D-Dimer POC ABG pCO2 POC ABG pO2 Sodium Potassium 3.2 L D Chloride Carbon Dioxide BUN 60 H Creatinine 3.1 H Glucose 213 H POC Glucose 218 H Lactic Acid Calcium 7.6 L TIBC Ferritin Lactate Dehydrogenase Total Creatine Kinase Vitamin B12 Crossmatch 08/22/16 08/22/16 08/22/16 12:23 18:15 23:57 WBC RBC Hgb Hct RDW Lymph % (Auto) [place] % (Auto) [place] # Seg Neutrophils % Seg Neuts % (Manual) Lymphocytes % (Manual) Monocytes % (Manual) Seg Neutrophils # Seg Neutrophils # Man Monocytes # (Manual) Eosinophils # (Manual) D-Dimer POC ABG pCO2 POC ABG pO2 Sodium Potassium Chloride Carbon Dioxide BUN Creatinine Glucose POC Glucose 165 H 64 L 55 L Lactic Acid Calcium TIBC Ferritin Lactate Dehydrogenase Total Creatine Kinase Vitamin B12 Crossmatch 08/23/16 08/23/16 08/23/16 05:42 05:42 11:48 WBC 34.2 H RBC 3.11 L Hgb 8.9 L Hct 27.8 L RDW 18.4 H Lymph % (Auto) [place] % (Auto) [place] # Seg Neutrophils % Seg Neuts % (Manual) 84.0 H Lymphocytes % (Manual) 11.0 L Monocytes % (Manual) Seg Neutrophils # Seg Neutrophils # Man 28.7 H Monocytes # (Manual) 1.0 H Eosinophils # (Manual) D-Dimer POC ABG pCO2 POC ABG pO2 Sodium Potassium 3.2 L Chloride Carbon Dioxide BUN 70 H Creatinine 3.6 H Glucose 45 L POC Glucose 179 H Lactic Acid Calcium 8.1 L TIBC Ferritin Lactate Dehydrogenase Total Creatine Kinase Vitamin B12 Crossmatch 08/23/16 08/23/16 08/24/16 18:50 23:46 05:49 WBC 27.0 H RBC 2.79 L Hgb 7.9 L Hct 25.2 L RDW 18.4 H Lymph % (Auto) [place] % (Auto) [place] # Seg Neutrophils % Seg Neuts % (Manual) 84.0 H Lymphocytes % (Manual) 7.5 L Monocytes % (Manual) Seg Neutrophils # Seg Neutrophils # Man 22.7 H Monocytes # (Manual) 1.8 H Eosinophils # (Manual) D-Dimer POC ABG pCO2 POC ABG pO2 Sodium Potassium Chloride Carbon Dioxide BUN Creatinine Glucose POC Glucose 191 H 172 H Lactic Acid Calcium TIBC Ferritin Lactate Dehydrogenase Total Creatine Kinase Vitamin B12 Crossmatch 08/24/16 08/24/16 08/25/16 05:49 12:21 00:23 WBC RBC Hgb Hct RDW Lymph % (Auto) [place] % (Auto) [place] # Seg Neutrophils % Seg Neuts % (Manual) Lymphocytes % (Manual) Monocytes % (Manual) Seg Neutrophils # Seg Neutrophils # Man Monocytes # (Manual) Eosinophils # (Manual) D-Dimer POC ABG pCO2 POC ABG pO2 Sodium Potassium 3.3 L Chloride Carbon Dioxide BUN 64 H Creatinine 3.1 H Glucose 183 H POC Glucose 239 H 147 H Lactic Acid Calcium 8.2 L TIBC Ferritin Lactate Dehydrogenase Total Creatine Kinase Vitamin B12 Crossmatch 08/25/16 08/25/16 08/25/16 04:36 08:00 08:00 WBC 21.7 H RBC 2.56 L Hgb 7.5 L Hct 23.3 L RDW 19.1 H Lymph % (Auto) [place] % (Auto) [place] # Seg Neutrophils % Seg Neuts % (Manual) 77.0 H Lymphocytes % (Manual) 9.0 L Monocytes % (Manual) 11.0 H Seg Neutrophils # Seg Neutrophils # Man 16.7 H Monocytes # (Manual) 2.4 H Eosinophils # (Manual) 0.7 H D-Dimer POC ABG pCO2 POC ABG pO2 Sodium Potassium 3.4 L Chloride 95.6 L Carbon Dioxide BUN 77 H Creatinine 4.1 H Glucose POC Glucose 128 H Lactic Acid Calcium 8.1 L TIBC Ferritin Lactate Dehydrogenase Total Creatine Kinase Vitamin B12 Crossmatch 08/25/16 08/25/16 08/25/16 16:49 20:08 20:17 WBC RBC Hgb Hct RDW Lymph % (Auto) [place] % (Auto) [place] # Seg Neutrophils % Seg Neuts % (Manual) Lymphocytes % (Manual) Monocytes % (Manual) Seg Neutrophils # Seg Neutrophils # Man Monocytes # (Manual) Eosinophils # (Manual) D-Dimer POC ABG pCO2 POC ABG pO2 Sodium Potassium Chloride Carbon Dioxide BUN Creatinine Glucose POC Glucose 62 L 54 L 207 H Lactic Acid Calcium TIBC Ferritin Lactate Dehydrogenase Total Creatine Kinase Vitamin B12 Crossmatch 08/26/16 08/26/16 08/27/16 08:00 08:00 05:57 WBC 19.2 H RBC 2.72 L Hgb 8.0 L Hct 24.7 L RDW 19.5 H Lymph % (Auto) 10.3 L [place] % (Auto) 11.6 H [place] # 2.2 H Seg Neutrophils % 77.1 H Seg Neuts % (Manual) Lymphocytes % (Manual) Monocytes % (Manual) Seg Neutrophils # 14.8 H Seg Neutrophils # Man Monocytes # (Manual) Eosinophils # (Manual) D-Dimer POC ABG pCO2 POC ABG pO2 Sodium Potassium 3.5 L Chloride Carbon Dioxide BUN 63 H Creatinine 3.1 H Glucose POC Glucose 180 H Lactic Acid Calcium TIBC Ferritin Lactate Dehydrogenase Total Creatine Kinase Vitamin B12 Crossmatch 08/27/16 08/27/16 08/27/16 06:09 06:09 06:09 WBC 21.4 H RBC 3.18 L Hgb 9.1 L Hct 29.5 L RDW 19.7 H Lymph % (Auto) [place] % (Auto) [place] # Seg Neutrophils % Seg Neuts % (Manual) 77.0 H Lymphocytes % (Manual) 9.0 L Monocytes % (Manual) 9.0 H Seg Neutrophils # Seg Neutrophils # Man 16.5 H Monocytes # (Manual) 1.9 H Eosinophils # (Manual) D-Dimer POC ABG pCO2 POC ABG pO2 Sodium Potassium Chloride Carbon Dioxide BUN 77 H Creatinine 3.5 H Glucose 127 H POC Glucose Lactic Acid Calcium 8.2 L TIBC Ferritin Lactate Dehydrogenase Total Creatine Kinase 172 H Vitamin B12 Crossmatch 08/27/16 08/27/16 08/27/16 12:33 21:29 23:40 WBC RBC Hgb Hct RDW Lymph % (Auto) [place] % (Auto) [place] # Seg Neutrophils % Seg Neuts % (Manual) Lymphocytes % (Manual) Monocytes % (Manual) Seg Neutrophils # Seg Neutrophils # Man Monocytes # (Manual) Eosinophils # (Manual) D-Dimer POC ABG pCO2 POC ABG pO2 Sodium Potassium Chloride Carbon Dioxide BUN Creatinine Glucose POC Glucose 142 H 43 L 67 L Lactic Acid Calcium TIBC Ferritin Lactate Dehydrogenase Total Creatine Kinase Vitamin B12 Crossmatch 08/28/16 08/28/16 08/29/16 06:51 18:48 00:28 WBC RBC Hgb Hct RDW Lymph % (Auto) [place] % (Auto) [place] # Seg Neutrophils % Seg Neuts % (Manual) Lymphocytes % (Manual) Monocytes % (Manual) Seg Neutrophils # Seg Neutrophils # Man Monocytes # (Manual) Eosinophils # (Manual) D-Dimer POC ABG pCO2 POC ABG pO2 Sodium Potassium Chloride Carbon Dioxide BUN Creatinine Glucose POC Glucose 64 L 132 H 156 H Lactic Acid Calcium TIBC Ferritin Lactate Dehydrogenase Total Creatine Kinase Vitamin B12 Crossmatch 08/29/16 08/29/16 08/29/16 05:52 10:51 13:33 WBC RBC Hgb Hct RDW Lymph % (Auto) [place] % (Auto) [place] # Seg Neutrophils % Seg Neuts % (Manual) Lymphocytes % (Manual) Monocytes % (Manual) Seg Neutrophils # Seg Neutrophils # Man Monocytes # (Manual) Eosinophils # (Manual) D-Dimer POC ABG pCO2 POC ABG pO2 60 L Sodium Potassium Chloride Carbon Dioxide BUN Creatinine Glucose POC Glucose 200 H 164 H Lactic Acid Calcium TIBC Ferritin Lactate Dehydrogenase Total Creatine Kinase Vitamin B12 Crossmatch Chest x-ray: report reviewed (Hypoinflation,Atelectasis.), image reviewed Allied health notes reviewed: nursing
[2016-08-30] MEDS: NOVOLOG SUB-Q SCH ×2 (01:45→07:04)
[2016-08-30] MEDS: HEPARIN SUB-Q SCH ×2 (05:51→10:40)
[2016-08-30] MEDS: SODIUM BICARBONATE PO SCH ×2 (05:52→10:41)
[2016-08-30] MEDS: KEPPRA PO SCH ×2 (05:52→10:41)
[2016-08-30] MEDS: VANCOMYCIN PO SCH ×4 (05:55→17:53)
[2016-08-30] MEDS: LEVEMIR SUB-Q SCH (08:00)
[2016-08-30] MEDS: DILAUDID IV PRN ×2 (08:26→17:31)
[2016-08-30] MEDS: DUONEB 0.5 MG-3 MG/3 ML SOLN IH SCH ×2 (08:41→14:33)
--- NOTE | 2016-08-30 08:48 | Vascular Lab Report ---
MISCELLANEOUS VESSEL IDENTIFICATION: COMMENTS ON THE SCAN: The left internal jugular vein was identified and under real-time ultrasound guidance was cannulated. IMPRESSION: Successful ultrasound guided vein cannulation.
--- NOTE | 2016-08-30 09:41 | Progress Note ---
Assessment and Plan Impression: * ESRD * Sepsis * VRE and ESBL Klebsiella pneumoniae bacteremia * Sacral decubiti * DM type 2 * HTN * Anemia in ESRD Plan: * abx per ID * 08/19 and 08/23 cultures no growth * renal diet * strict i/os * avoid nephrotoxins * Continue dialysis on Mondays, Wednesdays and Fridays schedule for now * Status post new PermCath placement on 08/29/16 Subjective Date of service: 08/30/16 Principal diagnosis: Polymicrobial bacteremia and sepsis; C. difficile infection Interval history: Patient is currently on BiPAP this morning. She appears comfortable. Remains nonverbal. She had a left IJ PermCath placed yesterday. Her right femoral Vas- Cath has been removed Objective - Vital Signs Vital signs: Vital Signs - 12hr 08/29/16 08/30/16 08/30/16 22:00 00:59 02:20 Temperature 98.2 F Pulse Rate 108 H Pulse Rate [ Anterior Bilateral Throughout] Pulse Rate [ 118 H Apical] Pulse Rate [ Posterior Bilateral] Respiratory 18 Rate Respiratory Rate [Anterior Bilateral Throughout] Respiratory Rate [Posterior Bilateral] Respiratory 22 Rate [sacrum] Blood Pressure 158/72 [Right Arm] O2 Sat by Pulse 96 Oximetry 08/30/16 08/30/16 08/30/16 03:49 05:52 08:10 Temperature 97.6 F 98.1 F Pulse Rate Pulse Rate [ Anterior Bilateral Throughout] Pulse Rate [ 111 H 116 H Apical] Pulse Rate [ Posterior Bilateral] Respiratory 18 18 Rate Respiratory Rate [Anterior Bilateral Throughout] Respiratory Rate [Posterior Bilateral] Respiratory 22 Rate [sacrum] Blood Pressure 148/68 187/83 [Right Arm] O2 Sat by Pulse 95 100 Oximetry 08/30/16 08/30/16 08:26 08:42 Temperature Pulse Rate Pulse Rate [ 107 H Anterior Bilateral Throughout] Pulse Rate [ Apical] Pulse Rate [ 107 H Posterior Bilateral] Respiratory 24 Rate Respiratory 20 Rate [Anterior Bilateral Throughout] Respiratory 20 Rate [Posterior Bilateral] Respiratory Rate [sacrum] Blood Pressure [Right Arm] O2 Sat by Pulse Oximetry - General Appearance General appearance: well-developed, well-nourished, appears stated age EENT: PERRL, mucous membranes moist Neck: no JVD, no thyromegaly, no carotid bruit, supple, other (left IJ PermCath in place) Respiratory: Present: Clear to Ascultation Cardiology: regular, normal heart rate Gastrointestinal: normal, normoactive bowel sounds, other (PEG tube in place) - Lab 08/27/16 06:09 08/27/16 06:09 Most recent lab results Calcium 8.2 mg/dL (8.4-10.2) L 08/27/16 06:09 Magnesium 2.2 mg/dL (1.7-2.3) 08/11/16 15:28
[2016-08-30] MEDS: PEPCID PO SCH (10:41)
[2016-08-30] MEDS: MERREM 1,000 MG in NACL 0.9% 100 ML IV SCH (10:55)
[2016-08-30] MEDS: NACL 0.9% IV SCH (12:46)
[2016-08-30] MEDS: CUBICIN IV SCH (12:46)
--- NOTE | 2016-08-30 13:26 | Progress Note ---
Subjective Date of service: 08/30/16 Principal diagnosis: Polymicrobial bacteremia and sepsis; C. difficile infection Interval history: Seen and examined at bedside; 24 hour events reviewed; nursing and respiratory care staff consulted; no adverse overnight events reported to me; Objective Vital Signs - 12hr 08/30/16 08/30/16 08/30/16 02:20 03:49 05:52 Temperature 97.6 F Pulse Rate 108 H Pulse Rate [ Anterior Bilateral Throughout] Pulse Rate [ 111 H Apical] Pulse Rate [ Posterior Bilateral] Respiratory 18 Rate Respiratory Rate [Anterior Bilateral Throughout] Respiratory Rate [Posterior Bilateral] Respiratory 22 Rate [sacrum] Blood Pressure 148/68 [Right Arm] O2 Sat by Pulse 95 Oximetry 08/30/16 08/30/16 08/30/16 08:10 08:26 08:42 Temperature 98.1 F Pulse Rate Pulse Rate [ 107 H Anterior Bilateral Throughout] Pulse Rate [ 116 H Apical] Pulse Rate [ 107 H Posterior Bilateral] Respiratory 18 24 Rate Respiratory 20 Rate [Anterior Bilateral Throughout] Respiratory 20 Rate [Posterior Bilateral] Respiratory Rate [sacrum] Blood Pressure 187/83 [Right Arm] O2 Sat by Pulse 100 Oximetry 08/30/16 08/30/16 08/30/16 08:54 09:55 11:41 Temperature 97.7 F Pulse Rate Pulse Rate [ 107 H Anterior Bilateral Throughout] Pulse Rate [ 108 H Apical] Pulse Rate [ Posterior Bilateral] Respiratory 20 Rate Respiratory 20 Rate [Anterior Bilateral Throughout] Respiratory Rate [Posterior Bilateral] Respiratory Rate [sacrum] Blood Pressure 131/60 [Right Arm] O2 Sat by Pulse 100 100 Oximetry Constitutional: no acute distress, asleep, other (somnolent) Eyes: non-icteric ENT: oropharynx moist Neck: supple Effort: normal Ascultation: Bilateral: clear, diminished breath sounds, rhonchi (scant in bases ) Cardiovascular: regular rate and rhythm Gastrointestinal: normoactive bowel sounds, soft, non-tender, non-distended Integumentary: normal Extremities: no cyanosis, no edema, no ischemia or petechiae, other (dressings to feet) Neurologic: non-focal exam (grossly), pupils equal and round, motor strength normal and Psychiatric: other (unable to assess) CBC and BMP: 08/27/16 06:09 08/27/16 06:09 ABG, PT/INR, D-dimer: ABG POC ABG pH 7.446 (7.35-7.45) 08/29/16 10:51 POC ABG pCO2 37.3 (35-45) 08/29/16 10:51 POC ABG pO2 60 (80-105) L 08/29/16 10:51 POC ABG HCO3 25.7 08/29/16 10:51 POC ABG Total CO2 27 08/29/16 10:51 POC ABG O2 Sat 92 08/29/16 10:51 PT/INR, D-dimer D-Dimer 5042.20 ng/mlDDU (0-234) H 08/12/16 16:18 Abnormal lab findings: Abnormal Labs 08/11/16 08/11/16 08/12/16 19:45 23:01 02:35 WBC RBC Hgb Hct RDW Lymph % (Auto) [place] % (Auto) [place] # Seg Neutrophils % Seg Neuts % (Manual) Lymphocytes % (Manual) Monocytes % (Manual) Seg Neutrophils # Seg Neutrophils # Man Monocytes # (Manual) Eosinophils # (Manual) D-Dimer POC ABG pCO2 POC ABG pO2 Sodium Potassium Chloride Carbon Dioxide BUN Creatinine Glucose POC Glucose 307 H Lactic Acid 3.5 H* Calcium TIBC Ferritin Lactate Dehydrogenase Total Creatine Kinase Vitamin B12 Crossmatch See Detail 08/12/16 08/12/16 08/12/16 05:30 05:30 11:09 WBC 38.6 H RBC 3.14 L Hgb 8.7 L Hct 28.1 L D RDW 18.3 H Lymph % (Auto) [place] % (Auto) [place] # Seg Neutrophils % Seg Neuts % (Manual) Lymphocytes % (Manual) 9.0 L Monocytes % (Manual) 8.0 H Seg Neutrophils # Seg Neutrophils # Man 16.6 H Monocytes # (Manual) 3.1 H Eosinophils # (Manual) 1.2 H D-Dimer POC ABG pCO2 POC ABG pO2 Sodium 133 L Potassium 3.0 L Chloride 92.4 L Carbon Dioxide 21 L BUN 44 H Creatinine 2.3 H Glucose 270 H POC Glucose 247 H Lactic Acid Calcium 8.2 L TIBC Ferritin Lactate Dehydrogenase Total Creatine Kinase Vitamin B12 Crossmatch 08/12/16 08/12/16 08/12/16 12:16 12:16 12:16 WBC RBC Hgb Hct RDW Lymph % (Auto) [place] % (Auto) [place] # Seg Neutrophils % Seg Neuts % (Manual) Lymphocytes % (Manual) Monocytes % (Manual) Seg Neutrophils # Seg Neutrophils # Man Monocytes # (Manual) Eosinophils # (Manual) D-Dimer POC ABG pCO2 POC ABG pO2 Sodium Potassium Chloride Carbon Dioxide BUN Creatinine Glucose POC Glucose Lactic Acid Calcium TIBC Ferritin 2000.0 H Lactate Dehydrogenase 276 H Total Creatine Kinase Vitamin B12 1117 H Crossmatch 08/12/16 08/12/16 08/12/16 12:16 15:23 16:18 WBC RBC Hgb Hct RDW Lymph % (Auto) [place] % (Auto) [place] # Seg Neutrophils % Seg Neuts % (Manual) Lymphocytes % (Manual) Monocytes % (Manual) Seg Neutrophils # Seg Neutrophils # Man Monocytes # (Manual) Eosinophils # (Manual) D-Dimer 5042.20 H POC ABG pCO2 29.4 L POC ABG pO2 51 L Sodium Potassium Chloride Carbon Dioxide BUN Creatinine Glucose POC Glucose Lactic Acid Calcium TIBC 101 L Ferritin Lactate Dehydrogenase Total Creatine Kinase Vitamin B12 Crossmatch 08/12/16 08/12/16 08/13/16 17:45 23:36 06:58 WBC RBC Hgb Hct RDW Lymph % (Auto) [place] % (Auto) [place] # Seg Neutrophils % Seg Neuts % (Manual) Lymphocytes % (Manual) Monocytes % (Manual) Seg Neutrophils # Seg Neutrophils # Man Monocytes # (Manual) Eosinophils # (Manual) D-Dimer POC ABG pCO2 POC ABG pO2 Sodium Potassium Chloride Carbon Dioxide BUN Creatinine Glucose POC Glucose 196 H 170 H 199 H Lactic Acid Calcium TIBC Ferritin Lactate Dehydrogenase Total Creatine Kinase Vitamin B12 Crossmatch 08/13/16 08/13/16 08/13/16 11:25 16:29 21:10 WBC RBC Hgb Hct RDW Lymph % (Auto) [place] % (Auto) [place] # Seg Neutrophils % Seg Neuts % (Manual) Lymphocytes % (Manual) Monocytes % (Manual) Seg Neutrophils # Seg Neutrophils # Man Monocytes # (Manual) Eosinophils # (Manual) D-Dimer POC ABG pCO2 POC ABG pO2 Sodium Potassium Chloride Carbon Dioxide BUN Creatinine Glucose POC Glucose 267 H 277 H 203 H Lactic Acid Calcium TIBC Ferritin Lactate Dehydrogenase Total Creatine Kinase Vitamin B12 Crossmatch 08/13/16 08/13/16 08/14/16 Unknown Unknown 07:42 WBC 30.0 H RBC 2.75 L Hgb 7.8 L Hct 24.0 L RDW 18.4 H Lymph % (Auto) [place] % (Auto) [place] # Seg Neutrophils % Seg Neuts % (Manual) 75.0 H Lymphocytes % (Manual) 7.0 L Monocytes % (Manual) Seg Neutrophils # Seg Neutrophils # Man 22.5 H Monocytes # (Manual) Eosinophils # (Manual) D-Dimer POC ABG pCO2 POC ABG pO2 Sodium 133 L Potassium 3.4 L Chloride 95.2 L Carbon Dioxide 18 L BUN 58 H Creatinine 2.9 H Glucose 201 H POC Glucose 306 H Lactic Acid Calcium 8.2 L TIBC Ferritin Lactate Dehydrogenase Total Creatine Kinase Vitamin B12 Crossmatch 08/14/16 08/14/16 08/14/16 08:26 08:26 11:19 WBC 28.9 H RBC 2.92 L Hgb 8.2 L Hct 25.9 L RDW 18.8 H Lymph % (Auto) [place] % (Auto) [place] # Seg Neutrophils % Seg Neuts % (Manual) 85.5 H Lymphocytes % (Manual) 4.5 L Monocytes % (Manual) Seg Neutrophils # Seg Neutrophils # Man 24.7 H Monocytes # (Manual) 0.9 H Eosinophils # (Manual) D-Dimer POC ABG pCO2 POC ABG pO2 Sodium Potassium Chloride Carbon Dioxide 15 L BUN 77 H Creatinine 3.5 H Glucose 289 H POC Glucose 274 H Lactic Acid Calcium 8.3 L TIBC Ferritin Lactate Dehydrogenase Total Creatine Kinase Vitamin B12 Crossmatch 08/14/16 08/14/16 08/15/16 15:56 21:12 06:00 WBC 30.1 H RBC 2.67 L Hgb 7.8 L Hct 23.4 L RDW 18.4 H Lymph % (Auto) [place] % (Auto) [place] # Seg Neutrophils % Seg Neuts % (Manual) 86.0 H Lymphocytes % (Manual) 4.0 L Monocytes % (Manual) Seg Neutrophils # Seg Neutrophils # Man 25.9 H Monocytes # (Manual) 1.8 H Eosinophils # (Manual) D-Dimer POC ABG pCO2 POC ABG pO2 Sodium Potassium Chloride Carbon Dioxide BUN Creatinine Glucose POC Glucose 284 H 357 H Lactic Acid Calcium TIBC Ferritin Lactate Dehydrogenase Total Creatine Kinase Vitamin B12 Crossmatch 08/15/16 08/15/16 08/15/16 06:00 11:17 16:43 WBC RBC Hgb Hct RDW Lymph % (Auto) [place] % (Auto) [place] # Seg Neutrophils % Seg Neuts % (Manual) Lymphocytes % (Manual) Monocytes % (Manual) Seg Neutrophils # Seg Neutrophils # Man Monocytes # (Manual) Eosinophils # (Manual) D-Dimer POC ABG pCO2 POC ABG pO2 Sodium Potassium 3.5 L Chloride 96.6 L Carbon Dioxide 21 L BUN 51 H Creatinine 2.6 H Glucose 214 H POC Glucose 280 H 257 H Lactic Acid Calcium 8.3 L TIBC Ferritin Lactate Dehydrogenase Total Creatine Kinase Vitamin B12 Crossmatch 08/15/16 08/16/16 08/16/16 23:40 05:25 07:20 WBC RBC Hgb Hct RDW Lymph % (Auto) [place] % (Auto) [place] # Seg Neutrophils % Seg Neuts % (Manual) Lymphocytes % (Manual) Monocytes % (Manual) Seg Neutrophils # Seg Neutrophils # Man Monocytes # (Manual) Eosinophils # (Manual) D-Dimer POC ABG pCO2 POC ABG pO2 Sodium Potassium Chloride Carbon Dioxide BUN Creatinine Glucose POC Glucose 179 H 140 H 147 H Lactic Acid Calcium TIBC Ferritin Lactate Dehydrogenase Total Creatine Kinase Vitamin B12 Crossmatch 08/16/16 08/16/16 08/16/16 09:20 09:20 11:28 WBC 35.1 H RBC 2.78 L Hgb 7.9 L Hct 24.7 L RDW 18.5 H Lymph % (Auto) [place] % (Auto) [place] # Seg Neutrophils % Seg Neuts % (Manual) Lymphocytes % (Manual) Monocytes % (Manual) Seg Neutrophils # Seg Neutrophils # Man Monocytes # (Manual) Eosinophils # (Manual) D-Dimer POC ABG pCO2 POC ABG pO2 Sodium 136 L Potassium 3.5 L Chloride Carbon Dioxide 17 L BUN 62 H Creatinine 3.3 H Glucose 128 H POC Glucose 150 H Lactic Acid Calcium 7.7 L TIBC Ferritin Lactate Dehydrogenase Total Creatine Kinase Vitamin B12 Crossmatch 08/16/16 08/16/16 08/17/16 15:39 23:45 05:03 WBC RBC Hgb Hct RDW Lymph % (Auto) [place] % (Auto) [place] # Seg Neutrophils % Seg Neuts % (Manual) Lymphocytes % (Manual) Monocytes % (Manual) Seg Neutrophils # Seg Neutrophils # Man Monocytes # (Manual) Eosinophils # (Manual) D-Dimer POC ABG pCO2 POC ABG pO2 Sodium Potassium Chloride Carbon Dioxide BUN Creatinine Glucose POC Glucose 106 H 156 H 287 H Lactic Acid Calcium TIBC Ferritin Lactate Dehydrogenase Total Creatine Kinase Vitamin B12 Crossmatch 08/17/16 08/17/16 08/17/16 08:40 08:40 12:11 WBC 37.0 H RBC 2.91 L Hgb 8.3 L Hct 25.8 L RDW 18.5 H Lymph % (Auto) [place] % (Auto) [place] # Seg Neutrophils % Seg Neuts % (Manual) Lymphocytes % (Manual) Monocytes % (Manual) Seg Neutrophils # Seg Neutrophils # Man Monocytes # (Manual) Eosinophils # (Manual) D-Dimer POC ABG pCO2 POC ABG pO2 Sodium 136 L Potassium Chloride 96.0 L Carbon Dioxide 16 L BUN 78 H Creatinine 4.0 H Glucose 330 H POC Glucose 345 H Lactic Acid Calcium 8.3 L TIBC Ferritin Lactate Dehydrogenase Total Creatine Kinase Vitamin B12 Crossmatch 08/17/16 08/17/16 08/17/16 15:34 17:40 20:07 WBC RBC Hgb Hct RDW Lymph % (Auto) [place] % (Auto) [place] # Seg Neutrophils % Seg Neuts % (Manual) Lymphocytes % (Manual) Monocytes % (Manual) Seg Neutrophils # Seg Neutrophils # Man Monocytes # (Manual) Eosinophils # (Manual) D-Dimer POC ABG pCO2 POC ABG pO2 Sodium Potassium Chloride Carbon Dioxide BUN Creatinine Glucose POC Glucose < 40 L 403 H 439 H Lactic Acid Calcium TIBC Ferritin Lactate Dehydrogenase Total Creatine Kinase Vitamin B12 Crossmatch 08/18/16 08/18/16 08/18/16 00:16 05:03 12:34 WBC RBC Hgb Hct RDW Lymph % (Auto) [place] % (Auto) [place] # Seg Neutrophils % Seg Neuts % (Manual) Lymphocytes % (Manual) Monocytes % (Manual) Seg Neutrophils # Seg Neutrophils # Man Monocytes # (Manual) Eosinophils # (Manual) D-Dimer POC ABG pCO2 POC ABG pO2 Sodium Potassium Chloride Carbon Dioxide BUN Creatinine Glucose POC Glucose 457 H 388 H 313 H Lactic Acid Calcium TIBC Ferritin Lactate Dehydrogenase Total Creatine Kinase Vitamin B12 Crossmatch 08/18/16 08/18/16 08/19/16 13:16 17:50 02:14 WBC RBC Hgb Hct RDW Lymph % (Auto) [place] % (Auto) [place] # Seg Neutrophils % Seg Neuts % (Manual) Lymphocytes % (Manual) Monocytes % (Manual) Seg Neutrophils # Seg Neutrophils # Man Monocytes # (Manual) Eosinophils # (Manual) D-Dimer POC ABG pCO2 POC ABG pO2 Sodium Potassium Chloride Carbon Dioxide 15 L BUN 100 H Creatinine 4.5 H Glucose 286 H POC Glucose 195 H 118 H Lactic Acid Calcium 8.3 L TIBC Ferritin Lactate Dehydrogenase Total Creatine Kinase Vitamin B12 Crossmatch 08/19/16 08/19/16 08/19/16 12:23 12:23 17:35 WBC 30.9 H RBC 3.45 L Hgb 9.7 L Hct RDW 18.6 H Lymph % (Auto) [place] % (Auto) [place] # Seg Neutrophils % Seg Neuts % (Manual) 89.5 H Lymphocytes % (Manual) 6.0 L Monocytes % (Manual) Seg Neutrophils # Seg Neutrophils # Man 27.7 H Monocytes # (Manual) Eosinophils # (Manual) D-Dimer POC ABG pCO2 POC ABG pO2 Sodium Potassium Chloride Carbon Dioxide 16 L BUN 116 H Creatinine 5.0 H Glucose 102 H POC Glucose 181 H Lactic Acid Calcium TIBC Ferritin Lactate Dehydrogenase Total Creatine Kinase Vitamin B12 Crossmatch 08/19/16 08/20/16 08/20/16 23:56 06:03 06:31 WBC RBC Hgb Hct RDW Lymph % (Auto) [place] % (Auto) [place] # Seg Neutrophils % Seg Neuts % (Manual) Lymphocytes % (Manual) Monocytes % (Manual) Seg Neutrophils # Seg Neutrophils # Man Monocytes # (Manual) Eosinophils # (Manual) D-Dimer POC ABG pCO2 POC ABG pO2 Sodium Potassium Chloride Carbon Dioxide BUN Creatinine Glucose POC Glucose 239 H 278 H 286 H Lactic Acid Calcium TIBC Ferritin Lactate Dehydrogenase Total Creatine Kinase Vitamin B12 Crossmatch 08/20/16 08/20/16 08/20/16 07:55 07:55 12:53 WBC 28.6 H RBC 3.45 L Hgb 9.7 L Hct RDW 18.7 H Lymph % (Auto) [place] % (Auto) [place] # Seg Neutrophils % Seg Neuts % (Manual) 93.0 H Lymphocytes % (Manual) 5.5 L Monocytes % (Manual) Seg Neutrophils # Seg Neutrophils # Man 26.6 H Monocytes # (Manual) Eosinophils # (Manual) D-Dimer POC ABG pCO2 POC ABG pO2 Sodium Potassium Chloride Carbon Dioxide 15 L BUN 134 H Creatinine 5.1 H Glucose 284 H POC Glucose 242 H Lactic Acid Calcium 8.1 L TIBC Ferritin Lactate Dehydrogenase Total Creatine Kinase Vitamin B12 Crossmatch 08/21/16 08/21/16 08/21/16 00:32 04:00 11:55 WBC RBC Hgb Hct RDW Lymph % (Auto) [place] % (Auto) [place] # Seg Neutrophils % Seg Neuts % (Manual) Lymphocytes % (Manual) Monocytes % (Manual) Seg Neutrophils # Seg Neutrophils # Man Monocytes # (Manual) Eosinophils # (Manual) D-Dimer POC ABG pCO2 POC ABG pO2 Sodium Potassium Chloride 96.2 L Carbon Dioxide 18 L BUN 95 H Creatinine 3.6 H Glucose 208 H POC Glucose 210 H 316 H Lactic Acid Calcium 8.0 L TIBC Ferritin Lactate Dehydrogenase Total Creatine Kinase Vitamin B12 Crossmatch 08/21/16 08/21/16 08/22/16 21:20 Unknown 00:51 WBC 34.9 H RBC 3.56 L Hgb 10.0 L Hct RDW 18.2 H Lymph % (Auto) [place] % (Auto) [place] # Seg Neutrophils % Seg Neuts % (Manual) 94.0 H Lymphocytes % (Manual) 4.0 L Monocytes % (Manual) Seg Neutrophils # Seg Neutrophils # Man 32.8 H Monocytes # (Manual) Eosinophils # (Manual) D-Dimer POC ABG pCO2 POC ABG pO2 Sodium Potassium Chloride Carbon Dioxide BUN Creatinine Glucose POC Glucose 156 H 208 H Lactic Acid Calcium TIBC Ferritin Lactate Dehydrogenase Total Creatine Kinase Vitamin B12 Crossmatch 08/22/16 08/22/16 08/22/16 05:16 07:05 07:05 WBC 29.9 H RBC 2.98 L Hgb 8.7 L Hct 26.7 L RDW 18.3 H Lymph % (Auto) [place] % (Auto) [place] # Seg Neutrophils % Seg Neuts % (Manual) 73.0 H Lymphocytes % (Manual) Monocytes % (Manual) 10.0 H Seg Neutrophils # Seg Neutrophils # Man 21.8 H Monocytes # (Manual) 3.0 H Eosinophils # (Manual) D-Dimer POC ABG pCO2 POC ABG pO2 Sodium Potassium 3.2 L D Chloride Carbon Dioxide BUN 60 H Creatinine 3.1 H Glucose 213 H POC Glucose 218 H Lactic Acid Calcium 7.6 L TIBC Ferritin Lactate Dehydrogenase Total Creatine Kinase Vitamin B12 Crossmatch 08/22/16 08/22/16 08/22/16 12:23 18:15 23:57 WBC RBC Hgb Hct RDW Lymph % (Auto) [place] % (Auto) [place] # Seg Neutrophils % Seg Neuts % (Manual) Lymphocytes % (Manual) Monocytes % (Manual) Seg Neutrophils # Seg Neutrophils # Man Monocytes # (Manual) Eosinophils # (Manual) D-Dimer POC ABG pCO2 POC ABG pO2 Sodium Potassium Chloride Carbon Dioxide BUN Creatinine Glucose POC Glucose 165 H 64 L 55 L Lactic Acid Calcium TIBC Ferritin Lactate Dehydrogenase Total Creatine Kinase Vitamin B12 Crossmatch 08/23/16 08/23/16 08/23/16 05:42 05:42 11:48 WBC 34.2 H RBC 3.11 L Hgb 8.9 L Hct 27.8 L RDW 18.4 H Lymph % (Auto) [place] % (Auto) [place] # Seg Neutrophils % Seg Neuts % (Manual) 84.0 H Lymphocytes % (Manual) 11.0 L Monocytes % (Manual) Seg Neutrophils # Seg Neutrophils # Man 28.7 H Monocytes # (Manual) 1.0 H Eosinophils # (Manual) D-Dimer POC ABG pCO2 POC ABG pO2 Sodium Potassium 3.2 L Chloride Carbon Dioxide BUN 70 H Creatinine 3.6 H Glucose 45 L POC Glucose 179 H Lactic Acid Calcium 8.1 L TIBC Ferritin Lactate Dehydrogenase Total Creatine Kinase Vitamin B12 Crossmatch 08/23/16 08/23/16 08/24/16 18:50 23:46 05:49 WBC 27.0 H RBC 2.79 L Hgb 7.9 L Hct 25.2 L RDW 18.4 H Lymph % (Auto) [place] % (Auto) [place] # Seg Neutrophils % Seg Neuts % (Manual) 84.0 H Lymphocytes % (Manual) 7.5 L Monocytes % (Manual) Seg Neutrophils # Seg Neutrophils # Man 22.7 H Monocytes # (Manual) 1.8 H Eosinophils # (Manual) D-Dimer POC ABG pCO2 POC ABG pO2 Sodium Potassium Chloride Carbon Dioxide BUN Creatinine Glucose POC Glucose 191 H 172 H Lactic Acid Calcium TIBC Ferritin Lactate Dehydrogenase Total Creatine Kinase Vitamin B12 Crossmatch 08/24/16 08/24/16 08/25/16 05:49 12:21 00:23 WBC RBC Hgb Hct RDW Lymph % (Auto) [place] % (Auto) [place] # Seg Neutrophils % Seg Neuts % (Manual) Lymphocytes % (Manual) Monocytes % (Manual) Seg Neutrophils # Seg Neutrophils # Man Monocytes # (Manual) Eosinophils # (Manual) D-Dimer POC ABG pCO2 POC ABG pO2 Sodium Potassium 3.3 L Chloride Carbon Dioxide BUN 64 H Creatinine 3.1 H Glucose 183 H POC Glucose 239 H 147 H Lactic Acid Calcium 8.2 L TIBC Ferritin Lactate Dehydrogenase Total Creatine Kinase Vitamin B12 Crossmatch 08/25/16 08/25/16 08/25/16 04:36 08:00 08:00 WBC 21.7 H RBC 2.56 L Hgb 7.5 L Hct 23.3 L RDW 19.1 H Lymph % (Auto) [place] % (Auto) [place] # Seg Neutrophils % Seg Neuts % (Manual) 77.0 H Lymphocytes % (Manual) 9.0 L Monocytes % (Manual) 11.0 H Seg Neutrophils # Seg Neutrophils # Man 16.7 H Monocytes # (Manual) 2.4 H Eosinophils # (Manual) 0.7 H D-Dimer POC ABG pCO2 POC ABG pO2 Sodium Potassium 3.4 L Chloride 95.6 L Carbon Dioxide BUN 77 H Creatinine 4.1 H Glucose POC Glucose 128 H Lactic Acid Calcium 8.1 L TIBC Ferritin Lactate Dehydrogenase Total Creatine Kinase Vitamin B12 Crossmatch 08/25/16 08/25/16 08/25/16 16:49 20:08 20:17 WBC RBC Hgb Hct RDW Lymph % (Auto) [place] % (Auto) [place] # Seg Neutrophils % Seg Neuts % (Manual) Lymphocytes % (Manual) Monocytes % (Manual) Seg Neutrophils # Seg Neutrophils # Man Monocytes # (Manual) Eosinophils # (Manual) D-Dimer POC ABG pCO2 POC ABG pO2 Sodium Potassium Chloride Carbon Dioxide BUN Creatinine Glucose POC Glucose 62 L 54 L 207 H Lactic Acid Calcium TIBC Ferritin Lactate Dehydrogenase Total Creatine Kinase Vitamin B12 Crossmatch 08/26/16 08/26/16 08/27/16 08:00 08:00 05:57 WBC 19.2 H RBC 2.72 L Hgb 8.0 L Hct 24.7 L RDW 19.5 H Lymph % (Auto) 10.[address] [place] % (Auto) 11.[address] [place] # 2.2 H Seg Neutrophils % 77.1 H Seg Neuts % (Manual) Lymphocytes % (Manual) Monocytes % (Manual) Seg Neutrophils # 14.8 H Seg Neutrophils # Man Monocytes # (Manual) Eosinophils # (Manual) D-Dimer POC ABG pCO2 POC ABG pO2 Sodium Potassium 3.5 L Chloride Carbon Dioxide BUN 63 H Creatinine 3.1 H Glucose POC Glucose 180 H Lactic Acid Calcium TIBC Ferritin Lactate Dehydrogenase Total Creatine Kinase Vitamin B12 Crossmatch 08/27/16 08/27/16 08/27/16 06:09 06:09 06:09 WBC 21.4 H RBC 3.18 L Hgb 9.1 L Hct 29.5 L RDW 19.7 H Lymph % (Auto) [place] % (Auto) [place] # Seg Neutrophils % Seg Neuts % (Manual) 77.0 H Lymphocytes % (Manual) 9.0 L Monocytes % (Manual) 9.0 H Seg Neutrophils # Seg Neutrophils # Man 16.5 H Monocytes # (Manual) 1.9 H Eosinophils # (Manual) D-Dimer POC ABG pCO2 POC ABG pO2 Sodium Potassium Chloride Carbon Dioxide BUN 77 H Creatinine 3.5 H Glucose 127 H POC Glucose Lactic Acid Calcium 8.2 L TIBC Ferritin Lactate Dehydrogenase Total Creatine Kinase 172 H Vitamin B12 Crossmatch 08/27/16 08/27/16 08/27/16 12:33 21:29 23:40 WBC RBC Hgb Hct RDW Lymph % (Auto) [place] % (Auto) [place] # Seg Neutrophils % Seg Neuts % (Manual) Lymphocytes % (Manual) Monocytes % (Manual) Seg Neutrophils # Seg Neutrophils # Man Monocytes # (Manual) Eosinophils # (Manual) D-Dimer POC ABG pCO2 POC ABG pO2 Sodium Potassium Chloride Carbon Dioxide BUN Creatinine Glucose POC Glucose 142 H 43 L 67 L Lactic Acid Calcium TIBC Ferritin Lactate Dehydrogenase Total Creatine Kinase Vitamin B12 Crossmatch 08/28/16 08/28/16 08/29/16 06:51 18:48 00:28 WBC RBC Hgb Hct RDW Lymph % (Auto) [place] % (Auto) [place] # Seg Neutrophils % Seg Neuts % (Manual) Lymphocytes % (Manual) Monocytes % (Manual) Seg Neutrophils # Seg Neutrophils # Man Monocytes # (Manual) Eosinophils # (Manual) D-Dimer POC ABG pCO2 POC ABG pO2 Sodium Potassium Chloride Carbon Dioxide BUN Creatinine Glucose POC Glucose 64 L 132 H 156 H Lactic Acid Calcium TIBC Ferritin Lactate Dehydrogenase Total Creatine Kinase Vitamin B12 Crossmatch 08/29/16 08/29/16 08/29/16 05:52 10:51 13:33 WBC RBC Hgb Hct RDW Lymph % (Auto) [place] % (Auto) [place] # Seg Neutrophils % Seg Neuts % (Manual) Lymphocytes % (Manual) Monocytes % (Manual) Seg Neutrophils # Seg Neutrophils # Man Monocytes # (Manual) Eosinophils # (Manual) D-Dimer POC ABG pCO2 POC ABG pO2 60 L Sodium Potassium Chloride Carbon Dioxide BUN Creatinine Glucose POC Glucose 200 H 164 H Lactic Acid Calcium TIBC Ferritin Lactate Dehydrogenase Total Creatine Kinase Vitamin B12 Crossmatch 08/29/16 08/30/16 08/30/16 17:56 00:06 06:45 WBC RBC Hgb Hct RDW Lymph % (Auto) [place] % (Auto) [place] # Seg Neutrophils % Seg Neuts % (Manual) Lymphocytes % (Manual) Monocytes % (Manual) Seg Neutrophils # Seg Neutrophils # Man Monocytes # (Manual) Eosinophils # (Manual) D-Dimer POC ABG pCO2 POC ABG pO2 Sodium Potassium Chloride Carbon Dioxide BUN Creatinine Glucose POC Glucose 196 H 290 H 236 H Lactic Acid Calcium TIBC Ferritin Lactate Dehydrogenase Total Creatine Kinase Vitamin B12 Crossmatch 08/30/16 12:05 WBC RBC Hgb Hct RDW Lymph % (Auto) [place] % (Auto) [place] # Seg Neutrophils % Seg Neuts % (Manual) Lymphocytes % (Manual) Monocytes % (Manual) Seg Neutrophils # Seg Neutrophils # Man Monocytes # (Manual) Eosinophils # (Manual) D-Dimer POC ABG pCO2 POC ABG pO2 Sodium Potassium Chloride Carbon Dioxide BUN Creatinine Glucose POC Glucose 272 H Lactic Acid Calcium TIBC Ferritin Lactate Dehydrogenase Total Creatine Kinase Vitamin B12 Crossmatch Allied health notes reviewed: nursing
--- NOTE | 2016-08-30 14:01 | Progress Note ---
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 Admitting blood cultures are grew VRE faecium & ESBL Klebsiella. Problem list: 1. Polymicrobial bacteremia and sepsis -08/16 blood cultures were still positive for VRE faecium -08/11 blood cultures with 4/4 bottles with ESBL Klebsiella pneumoniae and Vancomycin resistant Enterococcus faecium -Previous permacath source (removed 08/15) -08/19 & 08/23 blood cultures sterile 2. Left chest wall permacath infection -Status post removal 08/15 -Tip culture grew Proteus mirabilis and VRE faecium 3. C. diff. infection -Toxin assay positive 08/13 -Diarrhea improved -Now on enteral vancomycin 4. Leukocytosis -Marked elevation to 51,000 on admission -Multifactorial with bacteremia & C diff infection -Slowly trending downward. 5. Presacral pressure sore -Uninfected at present 6. End-stage renal failure -Left chest PermCath - removal 08/15 7. Status post right hemispheral stroke -Left hemiplegia 8. Lactic acidosis -Secondary to #1 -Resolved 8. Type 2 DM PLAN: 1. Continue Meropenem versus the ESBL Klebsiella blood isolate. Plan 2 weeks of therapy after first negative blood cultures: Stop date 09/02 2. Continue daptomycin versus the VRE: Plan 2 weeks of therapy after first negative blood cultures: Stop date 09/02 3. Continue enteral vancomycin vs C diff infection 4. Glycemic control as per the primary team 5. Follow-up on repeat blood cultures which were drawn on 08/23 6. Continue C. difficile & VRE isolation precautions Arash Bennett MD [facility] Office: [phone] Subjective Date of service: 08/30/16 Principal diagnosis: Polymicrobial bacteremia and sepsis; C. difficile infection Interval history: No obvious complaints. No acute distress. Remains confused but not agitated at present. Status post PermCath placement 08/29. ROS: not obtainable secondary to her menatl status. Objective - Exam Narrative Exam: GENERAL: Well-developed, chronically ill-appearing female who is alert and in no acute distress. Confused HEENT: Pupils are equal reactive to light and accommodation. Conjunctiva clear. Bilateral arcus senilis. Oropharynx is normal with no evidence of oral candidiasis or pharyngitis. Patient is edentulous. NECK: Supple. No enlargement of the thyroid gland. No significant cervical lymphadenopathy. No jugular venous distention at 30. LUNGS: Clear with no adventitious sounds. CHEST: Previous left vas cath site with no signs of infection. New right IJ PermCath in place. Not tender to palpation and no drainage visible. HEART: Regular rate. S1 and S2 are normal. There are no gallops, clicks or rubs heard. II/ JOSEPHINE heard best over the LUSB. No diastolic murmur. ABDOMEN: Soft and nontender. Liver and spleen are not palpably enlarged or tender. No palpable masses. Bowel sounds are normoactive. PEG site is clean with no signs of infection. : Not examined today EXTREMITIES: No rash, peripheral lymphadenopathy, clubbing or edema. Right femoral vas cath in place with no signs of infection on exam. SKIN: Bilateral feet dressings intact. Presacral pressure sore not examined today. NEUROLOGIC: Left hemiplegia. Alert. Oriented to person only. - Constitutional Vitals: Vital Signs Temp Pulse Resp BP Pulse Ox 97.7 F 108 H 20 131/60 100 08/30/16 11:41 08/30/16 11:41 08/30/16 11:41 08/30/16 11:41 08/30/16 11:41 Temperature -Last 24 Hours Temperature 97.7 F Temperature 98.1 F Temperature 97.6 F Temperature 98.2 F Temperature 97.6 F Temperature 98.2 F Temperature 98.2 F Temperature 98.1 F - Labs CBC & Chem 7: 08/27/16 06:09 08/27/16 06:09 Labs: Abnormal lab results Microbiology 08/23/16 14:46 Peripheral/Venous Blood Culture - Preliminary NO GROWTH 08/23/16 11:18 Peripheral/Venous Blood Culture - Preliminary NO GROWTH 08/19/16 16:48 Peripheral/Venous Blood Culture - Preliminary NO GROWTH AFTER 4 DAYS 08/19/16 16:48 Peripheral/Venous Blood Culture - Preliminary NO GROWTH AFTER 4 DAYS 08/16/16 10:42 Peripheral/Venous Blood Culture - 2/2 bottles with Enterococcal faecium (Vancomycin & penicillin resistant) 08/16/16 10:28 Peripheral/Venous Blood Culture - 2/2 bottles with Enterococcal faecium (Vancomycin & penicillin resistant) 08/15/16 Unknown Vascular Cath Catheter Tip Culture Proteus mirabilis (only resistant to quinolones) Vancomycin resistant Enterococcus faecium 08/12/16 11:41 Vascular Cath Blood Culture - Preliminary Klebsiella Pneumoniae (ESBL strain, quinolone resistant, carbapenem sensitive) Enterococcus faecium (Vancomycin resistant) 08/12/16 11:41 Peripheral/Venous Blood Culture - 2/2 bottles with Enterococcus faecium (Vancomycin & penicillin resistant) 08/11/16 18:31 Peripheral/Venous Blood Culture - Preliminary Klebsiella Pneumoniae Enterococcus faecium 08/11/16 18:31 Peripheral/Venous Blood Culture - Preliminary Klebsiella Pneumoniae Enterococcus faecium 08/12/16 16:55 Stool C. difficile DNA Amplification - Positive Imagin/30: Abdominal films: No free air. No evidence of megacolon.
--- NOTE | 2016-08-30 14:53 | Discharge Summary ---
Providers - Providers Date of Admission: 08/11/16 18:53 Date of discharge: 08/30/16 Attending physician: KITA PARKER 08/11/16 19:00 Consult to Physician [CONS] Routine Consulting Provider: EDGARDO ALTAMIRANO Reason For Exam: sepsis Place consult to:: answering service Notified:: y If yes, spoke with:: Time called:: 19:28 08/11/16 19:01 Consult to Wound/ET Nurse [CONS] Routine Reason For Exam: wound eval 08/11/16 19:10 Consult to Dietitian/Nutrition [CONS] Routine Physician Instructions: Reason For Exam: Reason for Consult: Write/Manage Tube Feeding 08/11/16 19:55 Consult to Dietitian/Nutrition [CONS] Routine Physician Instructions: Reason For Exam: Reason for Consult: Nutrition Recommendations Reason for Consult: Write/Manage Tube Feeding 08/11/16 20:23 Consult to Physician [CONS] Routine Consulting Provider: CRIS LONG Reason For Exam: septic shock Place consult to:: answering service Notified:: y If yes, spoke with:: Time called:: 20:28 08/14/16 10:16 Consult to Physician [CONS] Routine Consulting Provider: NOLVIA PRESLEY Reason For Exam: perm cath exchange Place consult to:: Notified:: yes Was contact made?: Yes If yes, spoke with:: oxana Time called:: 11:15 08/14/16 11:12 Consult to PICC Line RN [CONS] Routine Reason For Exam: PICC Type Line:: PICC 08/21/16 11:58 Physical Therapy Evaluation and Treat [CONS] Routine Comment: Reason For Exam: debility Primary care physician: DAJUAN PIPER Hospitalization Condition: Serious Disposition: DC/TX SNF W [facility] CERT Time spent for discharge: 40 min Core Measure Documentation - Palliative Care Palliative Care/ Comfort Measures: Not Applicable Exam - Constitutional Vitals: Temp Pulse Resp BP Pulse Ox 97.7 F 117 H 18 131/60 100 08/30/16 11:41 08/30/16 14:45 08/30/16 14:45 08/30/16 11:41 08/30/16 11:41 Plan Activity: advance as tolerated Diet: low cholesterol, low salt, diabetic, renal Follow up with: JAVON SERRANO MD [Staff Physician] - 7 Days MAHIN IQBAL MD [Staff Physician] - 7 Days LUL EASTMAN MD [Staff Physician] - 7 Days DAJUAN PIPER MD [Primary Care Provider] - 3-5 Days Prescriptions: DAPTOmycin [Cubicin] 582.6 mg IV Q48H #3 vial Meropenem [Merrem] 1,000 mg IV Q24HR #5 vial Vancomycin 250 mg PO Q6HR 14 Days
[2016-08-30 18:38] VITALS: BP 118/56
== END 2016-08-30 18:04 | DRG 252 ==
LOC: ED 15:04 → CC1 18:53 → 4A 08-19 00:01
PROVIDERS: ADMIT Internal Medicine; ATTEND Internal Medicine
PROC: 06HM33Z Insertion of Infusion Device into Right Femoral Vein, Percutaneous Approach (ICD-10-PCS; principal; 2016-08-11)
PROC: 30233N1 Transfusion of Nonautologous Red Blood Cells into Peripheral Vein, Percutaneous Approach (ICD-10-PCS; 2016-08-11)
PROC: 5A12012 Performance of Cardiac Output, Single, Manual (ICD-10-PCS; 2016-08-11)
PROC: 5A09557 Assistance with Respiratory Ventilation, Greater than 96 Consecutive Hours, Continuous Positive Airway Pressure (ICD-10-PCS; 2016-08-12)
PROC: 5A1D60Z (ICD-10-PCS; 2016-08-14)
PROC: 05PY03Z Removal of Infusion Device from Upper Vein, Open Approach (ICD-10-PCS; 2016-08-15)
PROC: 06HM33Z Insertion of Infusion Device into Right Femoral Vein, Percutaneous Approach (ICD-10-PCS; 2016-08-20)
PROC: B51B1ZA Fluoroscopy of Right Lower Extremity Veins using Low Osmolar Contrast, Guidance (ICD-10-PCS; 2016-08-20)
PROC: B54BZZA Ultrasonography of Right Lower Extremity Veins, Guidance (ICD-10-PCS; 2016-08-20)
PROC: 05HN33Z Insertion of Infusion Device into Left Internal Jugular Vein, Percutaneous Approach (ICD-10-PCS; 2016-08-29)
PROC: B5141ZA Fluoroscopy of Left Jugular Veins using Low Osmolar Contrast, Guidance (ICD-10-PCS; 2016-08-29)
PROC: B544ZZA Ultrasonography of Left Jugular Veins, Guidance (ICD-10-PCS; 2016-08-29)
DX: T80.211A Bloodstream infection due to central venous catheter, initial encounter (principal); A41.50 Gram-negative sepsis, unspecified; R65.21 Severe sepsis with septic shock; G92 Toxic encephalopathy; N18.6 End stage renal disease; N39.0 Urinary tract infection, site not specified; J44.1 Chronic obstructive pulmonary disease with (acute) exacerbation; I13.2 Hypertensive heart and chronic kidney disease with heart failure and with stage 5 chronic kidney disease, or end stage renal disease; E87.1 Hypo-osmolality and hyponatremia; A04.7 Enterocolitis due to Clostridium difficile; I69.354 Hemiplegia and hemiparesis following cerebral infarction affecting left non-dominant side; I69.351 Hemiplegia and hemiparesis following cerebral infarction affecting right dominant side; I50.9 Heart failure, unspecified; E11.22 Type 2 diabetes mellitus with diabetic chronic kidney disease; F41.9 Anxiety disorder, unspecified; F32.9 Major depressive disorder, single episode, unspecified; J45.909 Unspecified asthma, uncomplicated; G89.29 Other chronic pain; F03.90 Unspecified dementia, unspecified severity, without behavioral disturbance, psychotic disturbance, mood disturbance, and anxiety; D63.1 Anemia in chronic kidney disease; G40.909 Epilepsy, unspecified, not intractable, without status epilepticus; E87.6 Hypokalemia; E11.65 Type 2 diabetes mellitus with hyperglycemia; R19.7 Diarrhea, unspecified; L89.159 Pressure ulcer of sacral region, unspecified stage; R13.12 Dysphagia, oropharyngeal phase; Z16.12 Extended spectrum beta lactamase (ESBL) resistance; Z16.21 Resistance to vancomycin; Z99.2 Dependence on renal dialysis; Z98.890 Other specified postprocedural states; Z79.82 Long term (current) use of aspirin; Z79.4 Long term (current) use of insulin; Z79.2 Long term (current) use of antibiotics; Z79.899 Other long term (current) drug therapy; Z91.041 Radiographic dye allergy status; Y93.89 Activity, other specified; Y92.89 Other specified places as the place of occurrence of the external cause; Y99.8 Other external cause status; R06.00 Dyspnea, unspecified; Z78.1 Physical restraint status
CPT/HCPCS: 36415; 36430; 36556; 36558; 36600; 71010; 71020; 74020; 76937; 77001; 80048; 80053; 80202; 80301; 80320; 81001; 81025; 82140; 82270; 82550; 82607; 82728; 82747; 82803; 82962; 83550; 83615; 83735; 84443; 85007; 85025; 85027; 85045; 85379; 86140; 86850; 86900; 86901; 86920; 87040; 87076; 87116; 87185; 87186; 87493; 93005; 93010; 93306; 93970; 94640; 94660; 94760; 96365; 96367; C1750; C1751; C1752; C1769; G0479; G0480; J0690; J0878; J0885; J1170; J1200; J1644; J1720; J1815; J1818; J1953; J2060; J2185; J2250; J2270; J2543; J2930; J3010; J3370; J7030; J7040; J7050; P9016

== ENCOUNTER 2016-09-23 12:44 | Inpatient (IN) | payer MEDICARE ==
--- NOTE | 2016-09-23 13:15 | Emergency Department Report ---
ED General Adult HPI - General Chief complaint: Medical Clearance Stated complaint: FLUID RETENTION/MISSED DIALYSIS Time Seen by Provider: 09/23/16 13:03 Source: EMS, RN notes reviewed Mode of arrival: Stretcher Limitations: Altered Mental Status - History of Present Illness Initial comments: 66-year-old female presents to the emergency department via EMS after missing dialysis yesterday. Per report family thinks the patient is retaining fluid. Patient states that she got scared this morning because [facility]. She denies chest pain or difficulty breathing. There are no other complaints. -: Gradual, days(s) (1) Severity scale (0 -10): 0 Consistency: constant Improves with: none Worsens with: none Associated Symptoms: other (back pain, chronic) Treatments Prior to Arrival: none - Related Data Home Medications Medication Instructions Recorded Confirmed Last Taken Acetaminophen [Acetaminophen TAB] 650 mg FEEDTUBE Q6HR PRN 03/10/16 08/11/16 Unknown Ascorbic Acid [Vitamin C] 500 mg FEEDTUBE BID 03/10/16 08/11/16 Unknown Diphenhydramine HCl [Benadryl 25 mg FEEDTUBE Q6H PRN 03/10/16 08/11/16 Unknown Allergy TAB] Duloxetine HCl [Cymbalta] 60 mg FEEDTUBE QDAY 03/10/16 08/11/16 Unknown Insulin Regular, Human [HumuLIN R] 100 units SQ ACHS 03/10/16 08/11/16 Unknown LORazepam [Ativan] 1 mg PO TID PRN 03/10/16 08/11/16 Unknown Metoprolol Tartrate 100 mg PO BID 03/10/16 08/11/16 Unknown amLODIPine [Norvasc] 10 mg FEEDTUBE QDAY 03/10/16 08/11/16 Unknown hydrALAZINE [Apresoline TAB] 100 mg FEEDTUBE TID 03/10/16 08/11/16 Unknown Insulin Aspart Prot/Aspart See Protocol SUB-Q ACHS 05/27/16 08/11/16 Unknown [NovoLOG Mix 70/30 VIAL] Insulin Glargine [Lantus VIAL] 10 unit SUB-Q QHS 05/27/16 08/11/16 Unknown Multivitamins Liq [Multiple 15 ml FEEDTUBE QDAY 05/27/16 08/11/16 Unknown Vitamin Liq (Theragran)] Nut.tx.gluc.intoler,Lac-Fr,Soy 50 ml FEEDTUBE CONT 05/27/16 08/11/16 Unknown [Glucerna 1.5 Eugene] Aspirin EC [Aspirin Enteric Coated 325 mg FEEDTUBE QDAY 08/11/16 08/11/16 Unknown TAB] Previous Rx's Medication Instructions Recorded Last Taken Type Bisacodyl [Dulcolax suppos] 10 mg [place] QDAY PRN #30 supp.rect 12/14/15 Unknown Rx levETIRAcetam [Keppra TAB] 500 mg PO Q12H tablet 12/14/15 Unknown Rx Lipase/Protease/Amylase [Pancreaze 1 each FEEDTUBE PRN PRN #1 capsule 05/31/16 Unknown Rx 10,500 Unit] Sennosides Tab [Senokot] 8.6 mg FEEDTUBE QDAY tablet 05/31/16 Unknown Rx Simple Syrup 15 ml FEEDTUBE PRN PRN #1 oral.liqd 05/31/16 Unknown Rx Simple Syrup 30 ml FEEDTUBE PRN PRN #1 oral.liqd 05/31/16 Unknown Rx Sodium Bicarbonate 325 mg FEEDTUBE PRN PRN #1 tablet 05/31/16 Unknown Rx DAPTOmycin [Cubicin] 582.6 mg IV Q48H #3 vial 08/28/16 Unknown Rx Famotidine [Pepcid] 20 mg PO DAILY tablet 08/28/16 Unknown Rx Insulin Detemir [Levemir] 30 units SUB-Q QDDIAB units 08/28/16 Unknown Rx Ipratropium/Albuterol Sulfate 1 ampul IH TIDRT ampul.neb 08/28/16 Unknown Rx [Duoneb 0.5 mg-3 mg/3 ml Soln] Meropenem [Merrem] 1,000 mg IV Q24HR #5 vial 08/28/16 Unknown Rx Vancomycin 250 mg PO Q6HR 14 Days 08/28/16 Unknown Rx Allergies Allergy/AdvReac Type Severity Reaction Status Date / Time Iodine and Iodide Containing Allergy Nausea Verified 05/29/15 12:33 Produc ED Review of Systems ROS: Stated complaint: FLUID RETENTION/MISSED DIALYSIS Other details as noted in HPI Comment: All other systems reviewed and negative Respiratory: denies: shortness of breath Cardiovascular: denies: chest pain Musculoskeletal: back pain ED Past Medical Hx - Past Medical History Previous Medical History?: Yes Hx Hypertension: Yes Hx CVA: Yes (left side deficits from cva) Hx Congestive Heart Failure: Yes Hx Diabetes: Yes Hx Renal Disease: Yes (Tues, Thurs, Sat) Hx Seizures: Yes Hx Psychiatric Treatment: Yes (anxiety, dementia) Hx Asthma: Yes Hx COPD: Yes Hx Dementia: Yes Hx HIV: No Additional medical history: NON TRAUMATIC INTRACEREBRAL HEM, pressure ulcers right ankle stage 4, pancreatitis, buttock ulcer, chonic pain, mood disorder, pressure ulcer left heel stage 4, hyperkalemia, sepsis, h/o MRSA,. Anemia - Surgical History Past Surgical History?: Yes Hx Pacemaker: No Hx Internal Defibrillator: No Additional Surgical History: toe surgery, PEG tube - Family History Family history: no significant - Social History Smoking Status: Never Smoker Substance Use Type: None - Medications Home Medications: Home Medications Medication Instructions Recorded Confirmed Last Taken Type Bisacodyl [Dulcolax suppos] 10 mg CA QDAY PRN #30 supp.rect 12/14/15 08/11/16 Unknown Rx levETIRAcetam [Keppra TAB] 500 mg PO Q12H tablet 12/14/15 08/11/16 Unknown Rx Acetaminophen [Acetaminophen TAB] 650 mg FEEDTUBE Q6HR PRN 03/10/16 08/11/16 Unknown History Ascorbic Acid [Vitamin C] 500 mg FEEDTUBE BID 03/10/16 08/11/16 Unknown History Diphenhydramine HCl [Benadryl 25 mg FEEDTUBE Q6H PRN 03/10/16 08/11/16 Unknown History Allergy TAB] Duloxetine HCl [Cymbalta] 60 mg FEEDTUBE QDAY 03/10/16 08/11/16 Unknown History Insulin Regular, Human [HumuLIN R] 100 units SQ ACHS 03/10/16 08/11/16 Unknown History LORazepam [Ativan] 1 mg PO TID PRN 03/10/16 08/11/16 Unknown History Metoprolol Tartrate 100 mg PO BID 03/10/16 08/11/16 Unknown History amLODIPine [Norvasc] 10 mg FEEDTUBE QDAY 03/10/16 08/11/16 Unknown History hydrALAZINE [Apresoline TAB] 100 mg FEEDTUBE TID 03/10/16 08/11/16 Unknown History Insulin Aspart Prot/Aspart See Protocol SUB-Q ACHS 05/27/16 08/11/16 Unknown History [NovoLOG Mix 70/30 VIAL] Insulin Glargine [Lantus VIAL] 10 unit SUB-Q QHS 05/27/16 08/11/16 Unknown History Multivitamins Liq [Multiple 15 ml FEEDTUBE QDAY 05/27/16 08/11/16 Unknown History Vitamin Liq (Theragran)] Nut.tx.gluc.intoler,Lac-Fr,Soy 50 ml FEEDTUBE CONT 05/27/16 08/11/16 Unknown History [Glucerna 1.5 Eugene] Lipase/Protease/Amylase [Pancreaze 1 each FEEDTUBE PRN PRN #1 capsule 05/31/16 08/11/16 Unknown Rx 10,500 Unit] Sennosides Tab [Senokot] 8.6 mg FEEDTUBE QDAY tablet 05/31/16 08/11/16 Unknown Rx Simple Syrup 15 ml FEEDTUBE PRN PRN #1 oral.liqd 05/31/16 08/11/16 Unknown Rx Simple Syrup 30 ml FEEDTUBE PRN PRN #1 oral.liqd 05/31/16 08/11/16 Unknown Rx Sodium Bicarbonate 325 mg FEEDTUBE PRN PRN #1 tablet 05/31/16 08/11/16 Unknown Rx Aspirin EC [Aspirin Enteric Coated 325 mg FEEDTUBE QDAY 08/11/16 08/11/16 Unknown History TAB] DAPTOmycin [Cubicin] 582.6 mg IV Q48H #3 vial 08/28/16 Unknown Rx Famotidine [Pepcid] 20 mg PO DAILY tablet 08/28/16 Unknown Rx Insulin Detemir [Levemir] 30 units SUB-Q QDDIAB units 08/28/16 Unknown Rx Ipratropium/Albuterol Sulfate 1 ampul IH TIDRT ampul.neb 08/28/16 Unknown Rx [Duoneb 0.5 mg-3 mg/3 ml Soln] Meropenem [Merrem] 1,000 mg IV Q24HR #5 vial 08/28/16 Unknown Rx Vancomycin 250 mg PO Q6HR 14 Days 08/28/16 Unknown Rx ED Physical Exam - General Limitations: Altered Mental Status General appearance: alert, in no apparent distress - Head Head exam: Present: atraumatic, normocephalic - Eye Eye exam: Present: normal appearance, PERRL, EOMI - ENT ENT exam: Present: normal exam, normal orophraynx, mucous membranes moist - Neck Neck exam: Present: normal inspection, full ROM. Absent: tenderness - Respiratory Respiratory exam: Present: normal lung sounds bilaterally. Absent: respiratory distress - Cardiovascular Cardiovascular Exam: Present: regular rate, normal rhythm, normal heart sounds - GI/Abdominal GI/Abdominal exam: Present: soft, normal bowel sounds. Absent: distended, tenderness - Extremities Exam Extremities exam: Present: normal inspection, full ROM. Absent: tenderness - Back Exam Back exam: Present: normal inspection, full ROM. Absent: tenderness - Neurological Exam Neurological exam: Present: alert, motor sensory deficit (left-sided weakness noted, at baseline per report) - Skin Skin exam: Present: warm, dry, intact ED Course Vital Signs 09/23/16 12:50 Temperature 98.1 F Pulse Rate 79 Respiratory 18 Rate Blood Pressure 153/47 O2 Sat by Pulse 100 Oximetry ED Medical Decision Making - Lab Data Result diagrams: 09/23/16 13:13 09/23/16 13:13 - EKG Data -: EKG Interpreted by Me EKG shows normal: sinus rhythm, axis, intervals, QRS complexes Rate: normal - EKG Data When compared to previous EKG there are: previous EKG unavailable Interpretation: nonspecific ST-T wave bessie - Radiology Data Radiology results: image reviewed interpreted by me: Chest x-ray shows hypoinflation with questionable early pulmonary congestion. - Medical Decision Making Lab and imaging results reviewed and discussed with the patient. I have spoken with Dr. Alvarez, nephrology. Patient is to be admitted by the hospitalist. - Differential Diagnosis volume overload, electrolyte abnormality Critical care attestation.: If time is entered above; I have spent that time in minutes in the direct care of this critically ill patient, excluding procedure time. ED Disposition Clinical Impression: End-stage renal disease needing dialysis Disposition: OP ADMITTED IP TO THIS HOSP Is pt being admited?: Yes Condition: Stable Time of Disposition: 14:54
--- NOTE | 2016-09-23 13:27 | XRay Report ---
Single view chest: Compared to 08/28/16. History: Missed dialysis fluid retention. Findings: Borderline cardiomegaly. Stable large venous catheter. Trachea is midline. Lower limb lungs. No significant pulmonary venous congestion. No significant interval change. Impression: No significant interval change.
[2016-09-23 13:34] LABS: Basophils % (Auto) 0.3 % (0.0-1.8); Eosinophils % (Auto) 5.8 % (0.0-4.3); Hemoglobin 8.9 gm/dl (10.1-14.3); Mean Corpuscular HGB Conc 34 % (30-34); Mean Corpuscular Hemoglobin 32 pg (28-32); Mean Corpuscular Volume 92 fl (79-97); Platelet Count 329 K/mm3 (140-440); Red Blood Count 2.83 M/mm3 (3.65-5.03); White Blood Count 17.2 K/mm3 (4.5-11.0)
[2016-09-23 13:44] LABS: BUN/Creatinine Ratio 14.44; Calcium 8.1 mg/dL (8.4-10.2); Chloride 92.2 mmol/L (98-107); Potassium 3.2 mmol/L (3.6-5.0)
[2016-09-23] MEDS ORDERED: PANCREAZE DR 10,500 UNIT FEEDTUBE PRN (16:07)
[2016-09-23] MEDS ORDERED: DULCOLAX PR PRN (16:07)
[2016-09-23] MEDS ORDERED: SIMPLE SYRUP FEEDTUBE PRN ×2 (16:07)
[2016-09-23] MEDS ORDERED: [UNRECOGNIZED DRUG - OTHER] FEEDTUBE SCH (16:15)
[2016-09-23] MEDS ORDERED: MEROPENEM 1000 MG IV SCH (16:15)
[2016-09-23] MEDS ORDERED: NUT TX GLUC INTOLER LAC FR SOY FEEDTUBE SCH (16:15)
[2016-09-23] MEDS ORDERED: KEPPRA PO SCH (17:00)
[2016-09-23] MEDS ORDERED: NACL 0.9% 1000 ML 100 ML IV PRN (17:32)
--- NOTE | 2016-09-23 17:32 | Consultation ---
History of Present Illness - Reason for Consult Consult date: 09/23/16 end stage renal disease Requesting physician: RAFITA MEEKS - History of Present Illness 66-year-old female presents to the emergency department via EMS after missing dialysis yesterday. Per report family thinks the patient is retaining fluid. Patient states that she got scared this morning because she saw a snake in her room at the care home. She denies chest pain or difficulty breathing. There are no other complaints. Patient is a poor historian. Unable to get much history from her. Patient states that she goes for dialysis at [facility] Past History Past Medical History: diabetes, dialysis, hypertension, stroke Social history: no significant social history Family history: no significant family history Medications and Allergies Allergies Allergy/AdvReac Type Severity Reaction Status Date / Time Iodine and Iodide Containing Allergy Nausea Verified 05/29/15 12:33 Produc Home Medications Medication Instructions Recorded Confirmed Last Taken Type Bisacodyl [Dulcolax suppos] 10 mg [place] QDAY PRN #30 supp.rect 12/14/15 08/11/16 Unknown Rx levETIRAcetam [Keppra TAB] 500 mg PO Q12H tablet 12/14/15 08/11/16 Unknown Rx Acetaminophen [Acetaminophen TAB] 650 mg FEEDTUBE Q6HR PRN 03/10/16 08/11/16 Unknown History Ascorbic Acid [Vitamin C] 500 mg FEEDTUBE BID 03/10/16 08/11/16 Unknown History Diphenhydramine HCl [Benadryl 25 mg FEEDTUBE Q6H PRN 03/10/16 08/11/16 Unknown History Allergy TAB] Duloxetine HCl [Cymbalta] 60 mg FEEDTUBE QDAY 03/10/16 08/11/16 Unknown History Insulin Regular, Human [HumuLIN R] 100 units SQ ACHS 03/10/16 08/11/16 Unknown History LORazepam [Ativan] 1 mg PO TID PRN 03/10/16 08/11/16 Unknown History Metoprolol Tartrate 100 mg PO BID 03/10/16 08/11/16 Unknown History amLODIPine [Norvasc] 10 mg FEEDTUBE QDAY 03/10/16 08/11/16 Unknown History hydrALAZINE [Apresoline TAB] 100 mg FEEDTUBE TID 03/10/16 08/11/16 Unknown History Insulin Aspart Prot/Aspart See Protocol SUB-Q ACHS 05/27/16 08/11/16 Unknown History [NovoLOG Mix 70/30 VIAL] Insulin Glargine [Lantus VIAL] 10 unit SUB-Q QHS 05/27/16 08/11/16 Unknown History Multivitamins Liq [Multiple 15 ml FEEDTUBE QDAY 05/27/16 08/11/16 Unknown History Vitamin Liq (Theragran)] Nut.tx.gluc.intoler,Lac-Fr,Soy 50 ml FEEDTUBE CONT 05/27/16 08/11/16 Unknown History [Glucerna 1.5 Eugene] Lipase/Protease/Amylase [Pancreaze 1 each FEEDTUBE PRN PRN #1 capsule 05/31/16 08/11/16 Unknown Rx 10,500 Unit] Sennosides Tab [Senokot] 8.6 mg FEEDTUBE QDAY tablet 05/31/16 08/11/16 Unknown Rx Simple Syrup 15 ml FEEDTUBE PRN PRN #1 oral.liqd 05/31/16 08/11/16 Unknown Rx Simple Syrup 30 ml FEEDTUBE PRN PRN #1 oral.liqd 05/31/16 08/11/16 Unknown Rx Sodium Bicarbonate 325 mg FEEDTUBE PRN PRN #1 tablet 05/31/16 08/11/16 Unknown Rx Aspirin EC [Aspirin Enteric Coated 325 mg FEEDTUBE QDAY 08/11/16 08/11/16 Unknown History TAB] DAPTOmycin [Cubicin] 582.6 mg IV Q48H #3 vial 08/28/16 Unknown Rx Famotidine [Pepcid] 20 mg PO DAILY tablet 08/28/16 Unknown Rx Insulin Detemir [Levemir] 30 units SUB-Q QDDIAB units 08/28/16 Unknown Rx Ipratropium/Albuterol Sulfate 1 ampul IH TIDRT ampul.neb 08/28/16 Unknown Rx [Duoneb 0.5 mg-3 mg/3 ml Soln] Meropenem [Merrem] 1,000 mg IV Q24HR #5 vial 08/28/16 Unknown Rx Vancomycin 250 mg PO Q6HR 14 Days 08/28/16 Unknown Rx Active Meds: Active Medications Albuterol/Ipratropium (Duoneb 0.5 Mg-3 Mg/3 Ml Soln) 1 ampul IH TIDRT [place] Amlodipine Besylate (Norvasc) 10 mg FEEDTUBE QDAY [place] Lipase/Protease/Amylase (Pancreaze Dr 10,500 Unit) 1 each FEEDTUBE PRN PRN PRN Reason: For Clogged Feeding Tube Ascorbic Acid (Vitamin C) 500 mg FEEDTUBE BID [place] Bisacodyl (Dulcolax) 10 mg [place] QDAY PRN PRN Reason: Constipation unrelieved by MOM Heparin Sodium (Porcine) (Heparin) 5,000 unit SUB-Q Q12HR [place] Hydralazine HCl (Apresoline) 100 mg FEEDTUBE TID [place] Levetiracetam (Keppra) 500 mg PO Q12H [place] Lorazepam (Ativan) 1 mg PO TID PRN PRN Reason: Agitation Miscellaneous Medication (Diphenhydramine Hcl [Benadryl Allergy Tab]) 25 mg FEEDTUBE Q6H PRN PRN Reason: Itching Miscellaneous Medication (Duloxetine Hcl [Cymbalta]) 60 mg FEEDTUBE QDAY [facility] Miscellaneous Medication (Insulin Glargine) 10 unit SUB-Q QHS [place] Miscellaneous Medication (Meropenem [Merrem]) 1,000 mg IV Q24HR [place] Miscellaneous Medication (Metoprolol Tartrate) 100 mg PO BID [place] Miscellaneous Medication (Nut.Tx.Gluc.Intoler,Lac-Fr,Soy [Glucerna 1.5 Eugene]) 50 ml FEEDTUBE CONT [place] Multivitamins (Centrum Liq) 15 ml FEEDTUBE QDAY [place] Senna (Senokot) 8.6 mg FEEDTUBE QDAY [place] Simple Syrup (Simple Syrup) 15 ml FEEDTUBE PRN PRN PRN Reason: Hypoglycemia Simple Syrup (Simple Syrup) 30 ml FEEDTUBE PRN PRN PRN Reason: Hypoglycemia Review of Systems ROS unobtainable: due to mental status Exam - Vital Signs Vital signs: Vital Signs Temp Pulse Resp BP Pulse Ox 98.1 F 79 18 153/47 100 09/23/16 12:50 09/23/16 12:50 09/23/16 12:50 09/23/16 12:50 09/23/16 12:50 - General Appearance General appearance: well-developed, well-nourished, appears stated age EENT: PERRL, mucous membranes moist Neck: Present: neck supple, trachea midline, Other (left IJ PermCath in place). Absent: JVD/HJR, Masses Respiratory: Clear to Ascultation Heart: regular, normal heart rate, S1S2, no murmurs Gastrointestinal: Present: normal, normoactive bowel sounds Integumentary: no rash, other (both her heels are wrapped with bandage) Neurologic: other (left-sided hemiparesis) Results - Lab Results 09/23/16 13:13 09/23/16 13:13 Most recent lab results Calcium 8.1 mg/dL (8.4-10.2) L 09/23/16 13:13 Assessment and Plan Impression * End-stage renal disease on maintenance hemodialysis * Leg wound * Leukocytosis * Hypertension * Diabetes * Hyponatremia Recommendations * No urgent indication for dialysis today. Shall arrange for hemodialysis tomorrow * Adjust diet and meds for ESRD state * Antibiotic therapy as per primary team * Procrit with dialysis * Binders with diet * Avoid nephrotoxins * Patient needs fluid restriction * Thank you very much for the consultation. Shall follow along with you
[2016-09-23] MEDS ORDERED: MERREM 1,000 MG in NACL 0.9% 100 ML IV SCH (20:00)
[2016-09-23] MEDS ORDERED: PROCRIT ONE (21:05)
[2016-09-23] MEDS: DUONEB 0.5 MG-3 MG/3 ML SOLN IH SCH (21:05)
[2016-09-23] MEDS ORDERED: NACL 0.9 (PRIMING MACHINE ONLY DIALYSIS) MC ONE (21:06)
[2016-09-23] MEDS: PROCRIT IV PRN (21:15)
[2016-09-23] MEDS: HEPARIN IV PRN (21:15)
[2016-09-23] MEDS: APRESOLINE FEEDTUBE SCH (21:52)
[2016-09-23] MEDS ORDERED: METOPROLOL TARTRATE 100 MG PO SCH (22:00)
[2016-09-23] MEDS ORDERED: VITAMIN C FEEDTUBE SCH (22:00)
[2016-09-23] MEDS ORDERED: INSULIN GLARGINE 10 UNIT SUB-Q SCH (22:00)
[2016-09-23] MEDS: ATIVAN PO PRN (23:31)
[2016-09-23] MEDS: LOPRESSOR PO SCH (23:32)
[2016-09-23] MEDS: VITAMIN C FEEDTUBE SCH (23:33)
[2016-09-23] MEDS: HEPARIN SUB-Q SCH (23:33)
[2016-09-23] MEDS: KEPPRA PO SCH (23:33)
[2016-09-23] MEDS: LEVEMIR SUB-Q SCH (23:34)
[2016-09-23] MEDS: NORVASC FEEDTUBE SCH (23:43)
[2016-09-23] MEDS: CYMBALTA FEEDTUBE SCH (23:44)
[2016-09-23] MEDS: SENOKOT FEEDTUBE SCH (23:44)
--- NOTE | 2016-09-24 00:35 | History and Physical Report ---
History of Present Illness Date of examination: 09/23/16 Date of admission: 09/23/16 15:10 Chief complaint: Missed HD - 2 days, AMS History of present illness: Patient is 66-year-old lady who has a history of stroke with left hemiparesis from intracranial hemorrhage in 2014, dementia and end-stage renal disease on hemodialysis. Patient missed her dialysis session yesterday. Furthermore became concerned aspirations became more altered in her mental status. The lymph node remember that he sees his neck in the house. Patient was then brought to the emergency department. BUN was found to be 29 and creatinine was 2.7. Patient had leukocytosis also. Admission was therefore requested. Past History Past Medical History: diabetes, dialysis, hypertension, stroke Social history: no significant social history Family history: no significant family history Medications and Allergies Allergies Allergy/AdvReac Type Severity Reaction Status Date / Time Iodine and Iodide Containing Allergy Nausea Verified 05/29/15 12:33 Produc Home Medications Medication Instructions Recorded Confirmed Last Taken Type Bisacodyl [Dulcolax suppos] 10 mg ND QDAY PRN #30 supp.rect 12/14/15 08/11/16 Unknown Rx levETIRAcetam [Keppra TAB] 500 mg PO Q12H tablet 12/14/15 08/11/16 Unknown Rx Acetaminophen [Acetaminophen TAB] 650 mg FEEDTUBE Q6HR PRN 03/10/16 08/11/16 Unknown History Ascorbic Acid [Vitamin C] 500 mg FEEDTUBE BID 03/10/16 08/11/16 Unknown History Diphenhydramine HCl [Benadryl 25 mg FEEDTUBE Q6H PRN 03/10/16 08/11/16 Unknown History Allergy TAB] Duloxetine HCl [Cymbalta] 60 mg FEEDTUBE QDAY 03/10/16 08/11/16 Unknown History Insulin Regular, Human [HumuLIN R] 100 units SQ ACHS 03/10/16 08/11/16 Unknown History LORazepam [Ativan] 1 mg PO TID PRN 03/10/16 08/11/16 Unknown History Metoprolol Tartrate 100 mg PO BID 03/10/16 08/11/16 Unknown History amLODIPine [Norvasc] 10 mg FEEDTUBE QDAY 03/10/16 08/11/16 Unknown History hydrALAZINE [Apresoline TAB] 100 mg FEEDTUBE TID 03/10/16 08/11/16 Unknown History Insulin Aspart Prot/Aspart See Protocol SUB-Q ACHS 05/27/16 08/11/16 Unknown History [NovoLOG Mix 70/30 VIAL] Insulin Glargine [Lantus VIAL] 10 unit SUB-Q QHS 05/27/16 08/11/16 Unknown History Multivitamins Liq [Multiple 15 ml FEEDTUBE QDAY 05/27/16 08/11/16 Unknown History Vitamin Liq (Theragran)] Nut.tx.gluc.intoler,Lac-Fr,Soy 50 ml FEEDTUBE CONT 05/27/16 08/11/16 Unknown History [Glucerna 1.5 Eugene] Lipase/Protease/Amylase [Pancreaze 1 each FEEDTUBE PRN PRN #1 capsule 05/31/16 08/11/[address] 10,500 Unit] Sennosides Tab [Senokot] 8.6 mg FEEDTUBE QDAY tablet 05/31/16 08/11/16 Unknown Rx Simple Syrup 15 ml FEEDTUBE PRN PRN #1 oral.liqd 05/31/16 08/11/16 Unknown Rx Simple Syrup 30 ml FEEDTUBE PRN PRN #1 oral.liqd 05/31/16 08/11/16 Unknown Rx Sodium Bicarbonate 325 mg FEEDTUBE PRN PRN #1 tablet 05/31/16 08/11/16 Unknown Rx Aspirin EC [Aspirin Enteric Coated 325 mg FEEDTUBE QDAY 08/11/16 08/11/16 Unknown History TAB] DAPTOmycin [Cubicin] 582.6 mg IV Q48H #3 vial 08/28/16 Unknown Rx Famotidine [Pepcid] 20 mg PO DAILY tablet 08/28/16 Unknown Rx Insulin Detemir [Levemir] 30 units SUB-Q QDDIAB units 08/28/16 Unknown Rx Ipratropium/Albuterol Sulfate 1 ampul IH TIDRT ampul.neb 08/28/16 Unknown Rx [Duoneb 0.5 mg-3 mg/3 ml Soln] Meropenem [Merrem] 1,000 mg IV Q24HR #5 vial 08/28/16 Unknown Rx Vancomycin 250 mg PO Q6HR 14 Days 08/28/16 Unknown Rx Active Meds: Active Medications Albuterol/Ipratropium (Duoneb 0.5 Mg-3 Mg/3 Ml Soln) 1 ampul IH TIDRT [facility] Last Admin: 09/23/16 21:05 Dose: Not Given Amlodipine Besylate (Norvasc) 10 mg FEEDTUBE QDAY [facility] Last Admin: 09/23/16 23:43 Dose: 10 mg Lipase/Protease/Amylase (Pancreaze Dr 10,500 Unit) 1 each FEEDTUBE PRN PRN PRN Reason: For Clogged Feeding Tube Ascorbic Acid (Vitamin C) 500 mg FEEDTUBE BID [facility] Last Admin: 09/23/16 23:33 Dose: 500 mg Bisacodyl (Dulcolax) 10 mg ND QDAY PRN PRN Reason: Constipation unrelieved by MOM Diphenhydramine HCl (Benadryl) 25 mg FEEDTUBE Q6H PRN PRN Reason: Itching Duloxetine HCl (Cymbalta) 60 mg FEEDTUBE QDAY [facility] [place] Last Admin: 09/23/16 23:44 Dose: 60 mg Epoetin Kulwinder (Procrit) 10,000 unit IV BRIANNE PRN PRN Reason: hemodialysis Last Admin: 09/23/16 21:15 Dose: 10,000 unit Heparin Sodium (Porcine) (Heparin) 5,000 unit SUB-Q Q12HR [facility] Last Admin: 09/23/16 23:33 Dose: 5,000 unit Heparin Sodium (Porcine) (Heparin) 5,000 unit IV BRIANNE PRN PRN Reason: hemodialysis Last Admin: 09/23/16 21:15 Dose: 5,000 unit Hydralazine HCl (Apresoline) 100 mg FEEDTUBE TID [facility] Last Admin: 09/23/16 21:52 Dose: Not Given Sodium Chloride (Nacl 0.9% 1000 Ml) 100 mls @ 999 mls/hr IV BRIANNE PRN PRN Reason: Hypotension Meropenem 1,000 mg/ Sodium (Chloride) 100 mls @ 100 mls/hr IV Q24H [facility] Last Admin: 09/23/16 22:15 Dose: 100 mls/hr Insulin Detemir (Levemir) 10 units SUB-Q QHS [facility] Last Admin: 09/23/16 23:34 Dose: 10 units Levetiracetam (Keppra) 500 mg PO Q12H [facility] Last Admin: 09/23/16 23:33 Dose: 500 mg Lorazepam (Ativan) 1 mg PO TID PRN PRN Reason: Agitation Last Admin: 09/23/16 23:31 Dose: 1 mg Metoprolol Tartrate (Lopressor) 100 mg PO BID [facility] Last Admin: 09/23/16 23:32 Dose: 100 mg Miscellaneous Medication (Nut.Tx.Gluc.Intoler,Lac-Fr,Soy [Glucerna 1.5 Eugene]) 50 ml FEEDTUBE CONT [place] Multivitamins (Centrum Liq) 15 ml FEEDTUBE QDAY [place] Oxycodone/Acetaminophen (Percocet 5/325) 1 tab PO Q4H PRN PRN Reason: Pain, Moderate (4-6) Senna (Senokot) 8.6 mg FEEDTUBE QDAY [facility] [place] Last Admin: 09/23/16 23:44 Dose: 8.6 mg Simple Syrup (Simple Syrup) 15 ml FEEDTUBE PRN PRN PRN Reason: Hypoglycemia Simple Syrup (Simple Syrup) 30 ml FEEDTUBE PRN PRN PRN Reason: Hypoglycemia Review of Systems ROS unobtainable: due to mental status (patient is altered in her mental status and therefore ROS could not be obtained) Exam - Constitutional Vitals: Temp Pulse Resp BP Pulse Ox 98.0 F 99 H 16 166/70 100 09/23/16 21:15 09/23/16 23:43 09/23/16 21:15 09/23/16 23:43 09/23/16 15:29 General appearance: Present: no acute distress, well-nourished - EENT Eyes: Present: PERRL ENT: hearing intact, clear oral mucosa - Neck Neck: Present: supple, normal ROM - Respiratory Respiratory effort: normal Respiratory: bilateral: CTA - Cardiovascular Heart Sounds: Present: S1 & S2. Absent: rub, click - Extremities Extremities: pulses symmetrical, No edema Peripheral Pulses: within normal limits - Abdominal General gastrointestinal: Present: soft, non-tender, non-distended, normal bowel sounds - Integumentary Integumentary: Present: clear, warm, dry - Musculoskeletal Musculoskeletal: left sided weakness - Psychiatric Psychiatric: no intact judgment & insight, other (consult was) - Neurologic Neurologic: CNII-XII intact, other (able to move the left upper and lower extremities) Results - Labs CBC & Chem 7: 09/23/16 13:13 09/23/16 13:13 Labs: Abnormal lab results 09/23/16 09/23/16 Range/Units 17:46 21:29 POC Glucose 119 H 126 H (70-105) Assessment and Plan Assessment 1. Metabolic encephalopathy 2. End-stage renal disease on hemodialysis 3. Anemia secondary to chronic kidney disease 4. History of cerebrovascular accident from intraventricular hemorrhage left hemiparesis 5. Electrolytes imbalance with hyponatremia and hypokalemia 6. Hypertension Plan Admit patient to medical floor, nephrology consult obtained to resume hemodialysis Anemia workup Continue aspirin, optimize her blood pressure control, We will defer to the child care nurse in correcting electrolytes imbalance Optimize blood pressure control. DVT prophylaxis with Protonix and GI with Pepcid Spent 31 minutes in direct patient care. LABORATORY and radiological data during this admission as well as discussing with a child care nurse.
[2016-09-24] MEDS: PERCOCET 5/325 PO PRN ×2 (00:57→11:50)
[2016-09-24] MEDS ORDERED: D50W (25GM) IV ONE (06:30)
[2016-09-24] MEDS: DUONEB 0.5 MG-3 MG/3 ML SOLN IH SCH ×3 (07:31→21:20)
[2016-09-24] MEDS ORDERED: D50W (25GM) IV PRN (08:35)
--- NOTE | 2016-09-24 08:41 | Progress Note ---
Assessment and Plan Assessment and plan: Patient was admitted for hallucination after she missed her dialysis - End-stage disease on hemodialysis - Dialyzed yesterday - We'll monitor BMP - Nephrology consult appreciated Hallucination - resolved Diabetes mellitus - On home insulin regimen and sliding scale insulin Hypertension - Continue home regimen - We'll monitor Prophylaxis - heparin Disposition Plan: we'll continue inpatient care History Interval history: And admitted for confusion, missed hemodialysis. Hallucination. Patient didn' t see any "snakes" here. She is oriented only to her name. Hospitalist Physical - Physical exam Narrative exam: Not in cardiopulmonary distress. Vital signs as documented. Head exam is unremarkable. No scleral icterus . Neck is without jugular venous distension, thyromegaly, or carotid bruits. Chest vasc cath on the right side Lungs are clear to auscultation. Cardiac exam reveals regular rate and Rhythm. First and second heart sounds normal. No murmurs, rubs or gallops. Abdominal PEG tube Extremities decubitus ulcers on the buttocks and bilateral heels. [employer] ASSURANCE SUPERVISOR FINAL: Sleepy, oriented only to self. Left upper extremity contracted. Could be her baseline - Constitutional Vitals: Temp Pulse Resp BP Pulse Ox 98.2 F 86 16 114/53 98 09/24/16 07:17 09/24/16 08:07 09/24/16 08:07 09/24/16 07:17 09/24/16 07:17 General appearance: Present: no acute distress, well-nourished Results - Labs CBC & Chem 7: 09/24/16 09:24 09/24/16 09:24 Labs: Laboratory Last Values WBC 17.2 K/mm3 (4.5-11.0) H 09/23/16 13:13 RBC 2.83 M/mm3 (3.65-5.03) L 09/23/16 13:13 Hgb 8.9 gm/dl (10.1-14.3) L 09/23/16 13:13 Hct 26.0 % (30.3-42.9) L 09/23/16 13:13 MCV 92 fl (79-97) 09/23/16 13:13 MCH 32 pg (28-32) 09/23/16 13:13 MCHC 34 % (30-34) 09/23/16 13:13 RDW 17.0 % (13.2-15.2) H 09/23/16 13:13 Plt Count 329 K/mm3 (140-440) 09/23/16 13:13 Lymph % (Auto) 19.0 % (13.4-35.0) 09/23/16 13:13 [place] % (Auto) 8.4 % (0.0-7.3) H 09/23/16 13:13 Eos % (Auto) 5.8 % (0.0-4.3) H 09/23/16 13:13 Baso % (Auto) 0.3 % (0.0-1.8) 09/23/16 13:13 Lymph # 3.3 K/mm3 (1.2-5.4) 09/23/16 13:13 [place] # 1.4 K/mm3 (0.0-0.8) H 09/23/16 13:13 Eos # 1.0 K/mm3 (0.0-0.4) H 09/23/16 13:13 Baso # 0.0 K/mm3 (0.0-0.1) 09/23/16 13:13 Seg Neutrophils % 66.5 % (40.0-70.0) 09/23/16 13:13 Seg Neutrophils # 11.4 K/mm3 (1.8-7.7) H 09/23/16 13:13 Sodium 129 mmol/L (137-145) L 09/23/16 13:13 Potassium 3.2 mmol/L (3.6-5.0) L 09/23/16 13:13 Chloride 92.2 mmol/L (98-107) L 09/23/16 13:13 Carbon Dioxide 25 mmol/L (22-30) 09/23/16 13:13 Anion Gap 15 mmol/L 09/23/16 13:13 BUN 39 mg/dL (7-17) H 09/23/16 13:13 Creatinine 2.7 mg/dL (0.7-1.2) H 09/23/16 13:13 Estimated GFR 21 ml/min 09/23/16 13:13 BUN/Creatinine Ratio 14.44 % 09/23/16 13:13 Glucose 71 mg/dL (65-100) 09/24/16 07:16 POC Glucose 75 (70-105) 09/24/16 07:14 Calcium 8.1 mg/dL (8.4-10.2) L 09/23/16 13:13 NT-Pro-B Natriuret Pep 9330 pg/mL (0-900) H 09/23/16 13:13
--- NOTE | 2016-09-24 09:14 | Progress Note ---
Assessment and Plan Impression * End-stage renal disease on maintenance hemodialysis * Leg wound * Leukocytosis * Hypertension * Diabetes * Hyponatremia Recommendations * HD q MWF * Adjust diet and meds for ESRD state * Antibiotic therapy as per primary team * Procrit with dialysis * Binders with diet * Avoid nephrotoxins * Patient needs fluid restriction Subjective Date of service: 09/24/16 Principal diagnosis: esrd Interval history: resting well in bed today Objective - Exam Narrative Exam: General appearance: well-developed, well-nourished, appears stated age EENT: PERRL, mucous membranes moist Neck: Present: neck supple, trachea midline, Other (left IJ PermCath in place). Absent: JVD/HJR, Masses Respiratory: Clear to Ascultation Heart: regular, normal heart rate, S1S2, no murmurs Gastrointestinal: Present: normal, normoactive bowel sounds Integumentary: no rash, other (both her heels are wrapped with bandage) Neurologic: other (left-sided hemiparesis) - Vital Signs Vital signs: Vital Signs - 12hr 09/23/16 09/23/16 09/23/16 21:15 23:32 23:43 Temperature 98.0 F Pulse Rate 94 H 90 99 H Pulse Rate [ Anterior Bilateral Throughout] Pulse Rate [ Right Radial] Respiratory 16 Rate Respiratory Rate [Anterior Bilateral Throughout] Blood Pressure 110/60 166/70 166/70 Blood Pressure [Right Arm] O2 Sat by Pulse Oximetry 09/24/16 09/24/16 09/24/16 04:10 07:17 07:33 Temperature 98.3 F 98.2 F Pulse Rate Pulse Rate [ 88 Anterior Bilateral Throughout] Pulse Rate [ 90 82 Right Radial] Respiratory 18 16 Rate Respiratory 16 Rate [Anterior Bilateral Throughout] Blood Pressure Blood Pressure 133/61 114/53 [Right Arm] O2 Sat by Pulse 98 98 Oximetry 09/24/16 08:07 Temperature Pulse Rate Pulse Rate [ 86 Anterior Bilateral Throughout] Pulse Rate [ Right Radial] Respiratory Rate Respiratory 16 Rate [Anterior Bilateral Throughout] Blood Pressure Blood Pressure [Right Arm] O2 Sat by Pulse Oximetry - Lab 09/23/16 13:13 09/24/16 07:16 Most recent lab results Calcium 8.1 mg/dL (8.4-10.2) L 09/23/16 13:13
--- NOTE | 2016-09-24 09:20 | Admit Criteria Form ---
Admission Criteria Documentation: RENAL FAILURE, CHRONIC Clinical Indications for Admission to Inpatient Care (Place 'X' for any and all applicable criteria): Admission is indicated for ANY ONE of the following (1)(2)(3)(4)(5): [X]I. Inpatient admission required rather than observation care (Use Renal Failure, Chronic: Observation Care Criteria as appropriate) because of ANY ONE of the following: [X]a) Volume overload or uremic symptoms (eg, clinically significant pulmonary edema, hypertension, pericarditis, acidosis) too severe for, or not responsive (eg, for over 24 hours) to emergency department or observation care dialysis or treatment regimen (11) [ ]b) Hemodynamic instability that is severe or persistent [ ]c) Respiratory distress that is severe or persistent (11) [X]d) Clinically significant electrolyte abnormality that requires inpatient care (eg,hyperkalemia with severe ECG findings)[B] [ ]e) Supplement O2 or respiratory therapy for over 24hrs that is performable only in acute inpatient setting [ ]f) Continuous IV infusion of anticoagulation, platelet inhibitor, vasoactive, or Antiarrhythmic medication (15), [ ]g) Pulmonary artery catheter monitoring [ ]h) Temporary pacemaker placement [ ]i) Emergent pericardiocentesis [ ]j) Other condition, treatment or monitoring requiring inpatient admission [ ]II. Unexplained syncope [A] [ ]III. Recurrent seizures [ ]IV. Severe infections not treatable in outpatient setting (eg, peritonitis)(9 ) [ ]V. Cardiac arrhythmias of immediate concern [ ]. Encephalopathy [ ]VII.Bleeding abnormalities (eg, platelet dysfunction) with active (eg, gastrointestinal) bleeding Extended stay beyond goal length of stay may be needed for (3)(4)(35)(36): [ ]a) Continuing uremic complications [ ]b) Comorbidities or complications The original [employer] content created by [employer] has been revised. The portions of the content which have been revised are identified through the use of italic text or in bold, and [email or web address] has neither reviewed nor approved the modified material. All other unmodified content is copyright [employer]. Please see references footnoted in the original [facility] edition 2016 Admission Criteria Met: Yes
[2016-09-24 10:00] LABS: Hematocrit 25.1 % (30.3-42.9); Mean Corpuscular HGB Conc 32 % (30-34); Mean Corpuscular Hemoglobin 30 pg (28-32); Mean Corpuscular Volume 93 fl (79-97); Platelet Count 383 K/mm3 (140-440); White Blood Count 15.3 K/mm3 (4.5-11.0)
[2016-09-24 10:16] LABS: BUN/Creatinine Ratio 12.72; Calcium 8.2 mg/dL (8.4-10.2); Chloride 97.4 mmol/L (98-107); Potassium 3.4 mmol/L (3.6-5.0)
[2016-09-24] MEDS ORDERED: PANCREAZE DR 10,500 UNIT FEEDTUBE PRN (10:48)
[2016-09-24] MEDS ORDERED: SIMPLE SYRUP FEEDTUBE PRN ×2 (10:48)
[2016-09-24] MEDS ORDERED: SODIUM BICARBONATE FEEDTUBE PRN (10:48)
[2016-09-24] MEDS: PEPCID IV SCH (11:48)
[2016-09-24] MEDS: SENOKOT FEEDTUBE SCH (11:48)
[2016-09-24] MEDS: VITAMIN C FEEDTUBE SCH ×2 (11:49→22:48)
[2016-09-24] MEDS: CYMBALTA FEEDTUBE SCH (11:50)
[2016-09-24] MEDS: Centrum Liq FEEDTUBE SCH ×2 (11:51→12:05)
[2016-09-24] MEDS: NORVASC FEEDTUBE SCH (12:01)
[2016-09-24] MEDS: LOPRESSOR PO SCH ×2 (12:01→22:48)
[2016-09-24] MEDS: APRESOLINE FEEDTUBE SCH ×2 (12:06→22:48)
[2016-09-24] MEDS: KEPPRA FEEDTUBE SCH ×2 (13:43→22:48)
[2016-09-24] MEDS: HEPARIN SUB-Q SCH ×2 (13:44→22:49)
[2016-09-24] MEDS: BENADRYL FEEDTUBE PRN (14:45)
--- NOTE | 2016-09-24 15:14 | Progress Note ---
Assessment and Plan - Patient Problems (1) End-stage renal disease needing dialysis Current Visit: Yes Status: Acute Plan to address problem: Patient was last dialyzed yesterday and will be receiving hemodialysis today. Monitor volume status. Hallucinations resolved. (2) Leukocytosis Current Visit: No Status: Acute (3) Pressure ulcer Current Visit: No Status: Acute Plan to address problem: Consult wound care. Multiple decub ulcers. (4) Anemia, chronic renal failure Current Visit: Yes Status: Acute Plan to address problem: Epogen as needed. (5) HTN (hypertension) Current Visit: No Status: Chronic Qualifiers: Hypertension type: essential hypertension Qualified Code(s): I10 - Essential (primary) hypertension Subjective Date of service: 09/24/16 Principal diagnosis: ESRD Interval history: Patient is a poor historian. Objective - Vital Signs Vital signs: Vital Signs - 12hr 09/24/16 09/24/16 09/24/16 04:10 07:17 07:33 Temperature 98.3 F 98.2 F Pulse Rate [ 88 Anterior Bilateral Throughout] Pulse Rate [ 90 82 Right Radial] Respiratory 18 16 Rate Respiratory 16 Rate [Anterior Bilateral Throughout] Blood Pressure Blood Pressure 133/61 114/53 [Right Arm] O2 Sat by Pulse 98 98 Oximetry 09/24/16 09/24/16 09/24/16 08:07 12:01 13:22 Temperature Pulse Rate [ 86 88 Anterior Bilateral Throughout] Pulse Rate [ Right Radial] Respiratory Rate Respiratory 16 16 Rate [Anterior Bilateral Throughout] Blood Pressure 142/52 Blood Pressure [Right Arm] O2 Sat by Pulse Oximetry 09/24/16 09/24/16 13:57 14:20 Temperature 98.3 F Pulse Rate [ 86 Anterior Bilateral Throughout] Pulse Rate [ 83 Right Radial] Respiratory 18 Rate Respiratory 16 Rate [Anterior Bilateral Throughout] Blood Pressure Blood Pressure 108/50 [Right Arm] O2 Sat by Pulse 97 Oximetry - General Appearance General appearance: well-developed, well-nourished, obese, other (no distress, left IJ tunnel catheter) EENT: mucous membranes moist Neck: supple Respiratory: Present: [place] Cardiology: regular, S1S2, no murmurs Gastrointestinal: normoactive bowel sounds, no tenderness, no distended, obese, other (PEG tube noted) Integumentary: other (sacral and bilateral LE ulcers noted) Neurologic: other (bilateral blindness, barely following any command) Musculoskeletal: other (no edema) - Lab 09/24/16 09:24 09/25/16 04:54 Most recent lab results Calcium 8.2 mg/dL (8.4-10.2) L 09/24/16 09:24
[2016-09-24] MEDS: PROCRIT IV PRN (19:10)
[2016-09-24] MEDS: KEPPRA PO SCH (20:01)
[2016-09-24] MEDS ORDERED: NOVOLOG SUB-Q SCH (22:00)
[2016-09-24] MEDS: ATIVAN PO PRN (22:56)
[2016-09-25] MEDS: LEVEMIR SUB-Q SCH ×2 (00:03→21:46)
[2016-09-25] MEDS: PERCOCET 5/325 PO PRN ×2 (00:03→04:25)
[2016-09-25 06:19] LABS: BUN/Creatinine Ratio 10.66; Calcium 8.5 mg/dL (8.4-10.2); Chloride 98.1 mmol/L (98-107); Potassium 3.4 mmol/L (3.6-5.0)
[2016-09-25] MEDS: APRESOLINE FEEDTUBE SCH ×4 (07:34→21:43)
[2016-09-25] MEDS: DUONEB 0.5 MG-3 MG/3 ML SOLN IH SCH ×3 (08:00→20:37)
--- NOTE | 2016-09-25 08:15 | Progress Note ---
Assessment and Plan - Patient Problems (1) End-stage renal disease needing dialysis Current Visit: Yes Status: Acute Plan to address problem: Patient was last dialyzed yesterday. 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 Volume status is better. (2) Vascular catheter infection Current Visit: Yes Status: Acute Plan to address problem: Purulent discharge was noted from the exit site. Culture is pending. Started on Vancomycin. Seen by Vascular. (3) Anemia, chronic renal failure Current Visit: Yes Status: Acute Plan to address problem: Epogen prn. (4) Pressure ulcer Current Visit: No Status: Acute Plan to address problem: Multiple decubitus ulcers. (5) Diabetes mellitus, type 2 Current Visit: No Status: Chronic Subjective Date of service: 09/25/16 Principal diagnosis: ESRD Interval history: Patient is a poor historian. Objective - Vital Signs Vital signs: Vital Signs - 12hr 09/24/16 09/24/16 09/24/16 20:30 20:45 22:47 Temperature 97.8 F 97.9 F Pulse Rate 77 77 Pulse Rate [ Anterior Bilateral Throughout] Pulse Rate [ 108 H Right Radial] Respiratory 20 18 Rate Respiratory Rate [Anterior Bilateral Throughout] Blood Pressure 131/53 131/53 Blood Pressure 173/76 [Right Arm] O2 Sat by Pulse 98 Oximetry 09/25/16 09/25/16 09/25/16 00:06 04:24 06:12 Temperature 98.1 F 98.2 F Pulse Rate Pulse Rate [ Anterior Bilateral Throughout] Pulse Rate [ 94 H 104 H 109 H Right Radial] Respiratory 18 18 Rate Respiratory Rate [Anterior Bilateral Throughout] Blood Pressure Blood Pressure 139/62 171/76 126/61 [Right Arm] O2 Sat by Pulse 99 99 Oximetry 09/25/16 09/25/16 07:21 08:00 Temperature 98.4 F Pulse Rate Pulse Rate [ 88 Anterior Bilateral Throughout] Pulse Rate [ 110 H Right Radial] Respiratory 22 Rate Respiratory 16 Rate [Anterior Bilateral Throughout] Blood Pressure Blood Pressure 134/67 [Right Arm] O2 Sat by Pulse 99 Oximetry - General Appearance General appearance: well-developed, well-nourished, obese, other (no distress, left IJ tunnel catheter) EENT: mucous membranes moist Neck: supple Respiratory: Present: Clear to Ascultation Cardiology: regular, S1S2, no murmurs Gastrointestinal: normoactive bowel sounds, no tenderness, no distended, other ( PEG tube noted) Integumentary: other (bilateral LE ulcers, sacral decubitus) Neurologic: other (not following command) Musculoskeletal: other (no edema) - Lab 09/24/16 09:24 09/25/16 04:54 Most recent lab results Calcium 8.5 mg/dL (8.4-10.2) 09/25/16 04:54
[2016-09-25] MEDS ORDERED: VANCOMYCIN PHARMACY TO DOSE IV SCH (09:00)
[2016-09-25] MEDS: Centrum Liq FEEDTUBE SCH (11:12)
[2016-09-25] MEDS: KEPPRA FEEDTUBE SCH ×2 (11:13→21:42)
[2016-09-25] MEDS: VANCOMYCIN VIAL 1,500 MG in NACL 0.9% 500 ML 500 ML IV ONE ×2 (11:13→12:00)
[2016-09-25] MEDS: VITAMIN C FEEDTUBE SCH ×2 (11:13→21:43)
[2016-09-25] MEDS: SENOKOT FEEDTUBE SCH (11:14)
[2016-09-25] MEDS: CYMBALTA FEEDTUBE SCH (11:14)
[2016-09-25] MEDS: PEPCID IV SCH (11:15)
[2016-09-25] MEDS: LOPRESSOR PO SCH ×2 (11:15→21:43)
[2016-09-25] MEDS: NORVASC FEEDTUBE SCH (11:15)
[2016-09-25] MEDS: HEPARIN SUB-Q SCH ×2 (11:16→22:07)
--- NOTE | 2016-09-25 14:46 | Consultation ---
History of Present Illness - Reason for Consult Consult date: 09/25/16 Requesting physician: WILL SALAZAR - History of Present Illness This patient is a 66-year-old -[place] female that was admitted on 09/23 due to altered mental status. She has end-stage renal disease and is on hemodialysis through a left internal jugular vein permacath. The Patient is afebrile but has a leukocytosis of 15,300. With concerns of a possible permacath infection A vascular surgery consult has been placed. Blood cultures were drawn on 09/24/2016 and are presently listed as results pending. She has a decubitus ulceration with a wound culture that grew gram positive cocci in pairs and budding yeast. The patient is well-known to our service, due to multiple previous catheter insertions. Her last procedure was on 08/29/2016. Where the left internal jugular vein permacath was placed. The patient is a poor historian and therefore history is taken from this and previous medical records. Past History Past Medical History: anemia, COPD, diabetes, dialysis, ESRD, heart failure, hypertension, seizures, stroke, other (dementia, Chronic pain syndrome, mood disorder) Past Surgical History: Other (she had multiple previous permacaths, partial toe amputation) Social history: denies: smoking (quit smoking 3 years ago), alcohol abuse, IV drug use Family history: diabetes, hypertension, stroke Medications and Allergies Allergies Allergy/AdvReac Type Severity Reaction Status Date / Time Iodine and Iodide Containing Allergy Nausea Verified 05/29/15 12:33 Produc Home Medications Medication Instructions Recorded Confirmed Last Taken Type Bisacodyl [Dulcolax suppos] 10 mg OK QDAY PRN #30 supp.rect 12/14/15 08/11/16 Unknown Rx levETIRAcetam [Keppra TAB] 500 mg PO Q12H tablet 12/14/15 08/11/16 Unknown Rx Acetaminophen [Acetaminophen TAB] 650 mg FEEDTUBE Q6HR PRN 03/10/16 08/11/16 Unknown History Ascorbic Acid [Vitamin C] 500 mg FEEDTUBE BID 03/10/16 08/11/16 Unknown History Diphenhydramine HCl [Benadryl 25 mg FEEDTUBE Q6H PRN 03/10/16 08/11/16 Unknown History Allergy TAB] Duloxetine HCl [Cymbalta] 60 mg FEEDTUBE QDAY 03/10/16 08/11/16 Unknown History Insulin Regular, Human [HumuLIN R] 100 units SQ ACHS 03/10/16 08/11/16 Unknown History LORazepam [Ativan] 1 mg PO TID PRN 03/10/16 08/11/16 Unknown History Metoprolol Tartrate 100 mg PO BID 03/10/16 08/11/16 Unknown History amLODIPine [Norvasc] 10 mg FEEDTUBE QDAY 03/10/16 08/11/16 Unknown History hydrALAZINE [Apresoline TAB] 100 mg FEEDTUBE TID 03/10/16 08/11/16 Unknown History Insulin Aspart Prot/Aspart See Protocol SUB-Q ACHS 05/27/16 08/11/16 Unknown History [NovoLOG Mix 70/30 VIAL] Insulin Glargine [Lantus VIAL] 10 unit SUB-Q QHS 05/27/16 08/11/16 Unknown History Multivitamins Liq [Multiple 15 ml FEEDTUBE QDAY 05/27/16 08/11/16 Unknown History Vitamin Liq (Theragran)] Nut.tx.gluc.intoler,Lac-Fr,Soy 50 ml FEEDTUBE CONT 05/27/16 08/11/16 Unknown History [Glucerna 1.5 [place]] Lipase/Protease/Amylase [Pancreaze 1 each FEEDTUBE PRN PRN #1 capsule 05/31/16 08/11/16 Unknown Rx 10,500 Unit] Sennosides Tab [Senokot] 8.6 mg FEEDTUBE QDAY tablet 05/31/16 08/11/16 Unknown Rx Simple Syrup 15 ml FEEDTUBE PRN PRN #1 oral.liqd 05/31/16 08/11/16 Unknown Rx Simple Syrup 30 ml FEEDTUBE PRN PRN #1 oral.liqd 05/31/16 08/11/16 Unknown Rx Sodium Bicarbonate 325 mg FEEDTUBE PRN PRN #1 tablet 05/31/16 08/11/16 Unknown Rx Aspirin EC [Aspirin Enteric Coated 325 mg FEEDTUBE QDAY 08/11/16 08/11/16 Unknown History TAB] DAPTOmycin [Cubicin] 582.6 mg IV Q48H #3 vial 08/28/16 Unknown Rx Famotidine [Pepcid] 20 mg PO DAILY tablet 08/28/16 Unknown Rx Insulin Detemir [Levemir] 30 units SUB-Q QDDIAB units 08/28/16 Unknown Rx Ipratropium/Albuterol Sulfate 1 ampul IH TIDRT ampul.neb 08/28/16 Unknown Rx [Duoneb 0.5 mg-3 mg/3 ml Soln] Meropenem [Merrem] 1,000 mg IV Q24HR #5 vial 08/28/16 Unknown Rx Vancomycin 250 mg PO Q6HR 14 Days 08/28/16 Unknown Rx Active Meds: Active Medications Albuterol/Ipratropium (Duoneb 0.5 Mg-3 Mg/3 Ml Soln) 1 ampul IH TIDRT [facility] Last Admin: 09/25/16 13:41 Dose: 1 ampul Amlodipine Besylate (Norvasc) 10 mg FEEDTUBE QDAY [facility] Last Admin: 09/25/16 11:15 Dose: 10 mg Lipase/Protease/Amylase ([place] Dr 10,500 Unit) 1 each FEEDTUBE PRN PRN PRN Reason: For Clogged Feeding Tube Ascorbic Acid (Vitamin C) 500 mg FEEDTUBE BID [facility] Last Admin: 09/25/16 11:13 Dose: 500 mg Bisacodyl (Dulcolax) 10 mg OK QDAY PRN PRN Reason: Constipation unrelieved by MOM Dextrose (D50w (25gm)) 50 ml IV PRN PRN PRN Reason: Hypoglycemia Diphenhydramine HCl (Benadryl) 25 mg FEEDTUBE Q6H PRN PRN Reason: Itching Last Admin: 09/24/16 14:45 Dose: 25 mg Duloxetine HCl (Cymbalta) 60 mg FEEDTUBE QDAY [facility] Last Admin: 09/25/16 11:14 Dose: 60 mg Epoetin Kulwinder (Procrit) 10,000 unit IV BRIANNE PRN PRN Reason: hemodialysis Last Admin: 09/24/16 19:10 Dose: 10,000 unit Famotidine (Pepcid) 20 mg IV QDAY [facility] Last Admin: 09/25/16 11:15 Dose: 20 mg Heparin Sodium (Porcine) (Heparin) 5,000 unit SUB-Q Q12HR [facility] Last Admin: 09/25/16 11:16 Dose: 5,000 unit Heparin Sodium (Porcine) (Heparin) 5,000 unit IV BRIANNE PRN PRN Reason: hemodialysis Last Admin: 09/23/16 21:15 Dose: 5,000 unit Hydralazine HCl (Apresoline) 100 mg FEEDTUBE TID [facility] Last Admin: 09/25/16 10:11 Dose: 100 mg Sodium Chloride (Nacl 0.9% 1000 Ml) 100 mls @ 999 mls/hr IV BRIANNE PRN PRN Reason: Hypotension Insulin Aspart (Novolog) 0 units SUB-Q QHS [facility] PRN Reason: Protocol Last Admin: 09/25/16 00:02 Dose: 1 units Insulin Detemir (Levemir) 10 units SUB-Q QHS [facility] Last Admin: 09/25/16 00:03 Dose: 10 units Levetiracetam (Keppra) 500 mg FEEDTUBE BID [facility] Last Admin: 09/25/16 11:13 Dose: 500 mg Lorazepam (Ativan) 1 mg PO TID PRN PRN Reason: Agitation Last Admin: 09/24/16 22:56 Dose: 1 mg Metoprolol Tartrate (Lopressor) 100 mg PO BID [facility] Last Admin: 09/25/16 11:15 Dose: 100 mg Multivitamins (Centrum Liq) 15 ml FEEDTUBE QDAY [facility] Last Admin: 09/25/16 11:12 Dose: 15 ml Oxycodone/Acetaminophen (Percocet 5/325) 1 tab PO Q4H PRN PRN Reason: Pain, Moderate (4-6) Last Admin: 09/25/16 04:25 Dose: 1 tab Senna (Senokot) 8.6 mg FEEDTUBE QDAY [facility] Last Admin: 09/25/16 11:14 Dose: 8.6 mg Simple Syrup (Simple Syrup) 15 ml FEEDTUBE PRN PRN PRN Reason: Hypoglycemia Simple Syrup (Simple Syrup) 30 ml FEEDTUBE PRN PRN PRN Reason: Hypoglycemia Vancomycin HCl (Vancomycin Pharmacy To Dose) 1 each IV PKCONSULT [facility] PRN Reason: Protocol Review of Systems ROS unobtainable: due to mental status Exam - Constitutional Vitals: Temp Pulse Resp BP Pulse Ox 98.3 F 107 H 16 137/59 96 09/25/16 14:34 09/25/16 14:34 09/25/16 14:34 09/25/16 14:34 09/25/16 14:34 General appearance: Present: no acute distress - EENT Eyes: Present: EOM intact - Neck Neck: Present: other (left chest permacath, no erythema or drainage noted from the exit site) - Respiratory Respiratory effort: normal - Psychiatric Psychiatric: no appropriate mood/affect, no intact judgment & insight, no cooperative - Neurologic Neurologic: no focal deficits Results - Labs CBC & Chem 7: 09/24/16 09:24 09/25/16 04:54 Labs: Abnormal lab results 09/24/16 09/24/16 09/25/16 Range/Units 14:43 23:56 04:54 Sodium 136 L (137-145) mmol/L Potassium 3.4 L (3.6-5.0) mmol/L Creatinine 1.5 H (0.7-1.2) mg/dL Glucose 163 H (65-100) mg/dL POC Glucose 65 L 151 H (70-105) 09/25/16 Range/Units 07:06 Sodium (137-145) mmol/L Potassium (3.6-5.0) mmol/L Creatinine (0.7-1.2) mg/dL Glucose (65-100) mg/dL POC Glucose 157 H (70-105) Assessment and Plan This patient was admitted with altered mental status. With concerns of a possible permacath infection a vascular surgery consult was placed. She has a leukocytosis, but appears to be afebrile at present. Blood cultures have been drawn and are pending. We'll await these results. If the patient is bacteremic, then we'll consider permacath removal as needed. - Patient Problems (1) Leukocytosis Current Visit: No Status: Acute (2) End-stage renal disease needing dialysis Current Visit: Yes Status: Acute (3) Altered mental status Current Visit: No Status: Acute (4) Diabetes mellitus Current Visit: No Status: Chronic (5) HTN (hypertension) Current Visit: No Status: Chronic Qualifiers: Hypertension type: essential hypertension Qualified Code(s): I10 - Essential (primary) hypertension
[2016-09-25] MEDS: BENADRYL FEEDTUBE PRN (14:54)
[2016-09-26] MEDS ORDERED: NOVOLOG SUB-Q SCH
[2016-09-26] MEDS: BENADRYL FEEDTUBE PRN (01:31)
[2016-09-26] MEDS: ATIVAN PO PRN (01:31)
[2016-09-26] MEDS: DUONEB 0.5 MG-3 MG/3 ML SOLN IH SCH ×2 (07:20→14:15)
[2016-09-26] MEDS: PROCRIT IV PRN (12:00)
[2016-09-26] MEDS: HEPARIN IV PRN (12:00)
--- NOTE | 2016-09-26 14:06 | Progress Note ---
Assessment and Plan - Patient Problems (1) Vascular catheter infection Current Visit: Yes Status: Acute Qualifiers: Encounter type: E Plan to address problem: IV abx, ivf, supportive care, Vascular surgery consulted, (2) End-stage renal disease needing dialysis Current Visit: Yes Status: Acute Plan to address problem: Nephrology consulted, dialysis as per renal service. (3) DVT prophylaxis Current Visit: Yes Status: Acute History Interval history: Pt resting in bed, Pt denies pain, no reported nursing events. Hospitalist Physical - Constitutional Vitals: Temp Pulse Resp BP Pulse Ox 100.1 F H 99 H 20 116/46 99 09/25/16 23:00 09/26/16 12:00 09/25/16 23:00 09/26/16 12:00 09/25/16 23:00 General appearance: Present: no acute distress, obese - EENT Eyes: Present: PERRL, EOM intact - Neck Neck: Present: supple - Respiratory Respiratory: bilateral: CTA - Cardiovascular Rhythm: regular Heart Sounds: Present: S1 & S2 - Extremities Extremities: no ischemia Extremity abnormal: edema Peripheral Pulses: within normal limits - Abdominal General gastrointestinal: soft, non-tender, non-distended - Integumentary Integumentary: Present: clear, dry - Psychiatric Psychiatric: no intact judgment & insight, no memory intact, cooperative - Neurologic Neurologic: CNII-XII intact Results - Labs CBC & Chem 7: 09/24/16 09:24 09/25/16 04:54 Labs: Laboratory Last Values WBC 15.3 K/mm3 (4.5-11.0) H 09/24/16 09:24 RBC 2.70 M/mm3 (3.65-5.03) L 09/24/16 09:24 Hgb 8.0 gm/dl (10.1-14.3) L 09/24/16 09:24 Hct 25.1 % (30.3-42.9) L 09/24/16 09:24 MCV 93 fl (79-97) 09/24/16 09:24 MCH 30 pg (28-32) 09/24/16 09:24 MCHC 32 % (30-34) 09/24/16 09:24 RDW 17.0 % (13.2-15.2) H 09/24/16 09:24 Plt Count 383 K/mm3 (140-440) 09/24/16 09:24 Lymph % (Auto) 19.0 % (13.4-35.0) 09/23/16 13:13 [place] % (Auto) 8.4 % (0.0-7.3) H 09/23/16 13:13 Eos % (Auto) 5.8 % (0.0-4.3) H 09/23/16 13:13 Baso % (Auto) 0.3 % (0.0-1.8) 09/23/16 13:13 Lymph # 3.3 K/mm3 (1.2-5.4) 09/23/16 13:13 [place] # 1.4 K/mm3 (0.0-0.8) H 09/23/16 13:13 Eos # 1.0 K/mm3 (0.0-0.4) H 09/23/16 13:13 Baso # 0.0 K/mm3 (0.0-0.1) 09/23/16 13:13 Seg Neutrophils % 66.5 % (40.0-70.0) 09/23/16 13:13 Seg Neutrophils # 11.4 K/mm3 (1.8-7.7) H 09/23/16 13:13 Sodium 136 mmol/L (137-145) L 09/25/16 04:54 Potassium 3.4 mmol/L (3.6-5.0) L 09/25/16 04:54 Chloride 98.1 mmol/L (98-107) 09/25/16 04:54 Carbon Dioxide 28 mmol/L (22-30) 09/25/16 04:54 Anion Gap 13 mmol/L 09/25/16 04:54 BUN 16 mg/dL (7-17) 09/25/16 04:54 Creatinine 1.5 mg/dL (0.7-1.2) H 09/25/16 04:54 Estimated GFR 42 ml/min 09/25/16 04:54 BUN/Creatinine Ratio 10.66 % 09/25/16 04:54 Glucose 163 mg/dL (65-100) H 09/25/16 04:54 POC Glucose 136 (70-105) H 09/26/16 11:39 Calcium 8.5 mg/dL (8.4-10.2) 09/25/16 04:54 NT-Pro-B Natriuret Pep 9330 pg/mL (0-900) H 09/23/16 13:13
--- NOTE | 2016-09-26 14:11 | Progress Note ---
Assessment and Plan - Patient Problems (1) Vascular catheter infection Current Visit: Yes Status: Acute Qualifiers: Encounter type: E Plan to address problem: IV abx, ivf, supportive care, Vascular surgery consulted, (2) End-stage renal disease needing dialysis Current Visit: Yes Status: Acute Plan to address problem: Nephrology consulted, dialysis as per renal service. (3) DVT prophylaxis Current Visit: Yes Status: Acute History Interval history: Pt resting in bed, Pt denies pain, no reported nursing events. Pt undergoing dialysis. Pt confused,unchanged, Pt more alert today. Hospitalist Physical - Constitutional Vitals: Temp Pulse Resp BP Pulse Ox 97.9 F 99 H 20 116/46 99 09/26/16 08:55 09/26/16 12:00 09/26/16 08:55 09/26/16 12:00 09/25/16 23:00 General appearance: Present: no acute distress, obese - EENT Eyes: Present: PERRL, EOM intact - Neck Neck: Present: supple - Respiratory Respiratory: bilateral: CTA - Cardiovascular Rhythm: regular Heart Sounds: Present: S1 & S2 - Extremities Extremities: no ischemia, abnormal (BLE pressure sores, present on admission) - Abdominal General gastrointestinal: soft, non-tender, non-distended - Integumentary Integumentary: Present: clear, dry - Psychiatric Psychiatric: no intact judgment & insight, no memory intact - Neurologic Neurologic: CNII-XII intact Results - Labs CBC & Chem 7: 09/24/16 09:24 09/25/16 04:54 Labs: Laboratory Last Values WBC 15.3 K/mm3 (4.5-11.0) H 09/24/16 09:24 RBC 2.70 M/mm3 (3.65-5.03) L 09/24/16 09:24 Hgb 8.0 gm/dl (10.1-14.3) L 09/24/16 09:24 Hct 25.1 % (30.3-42.9) L 09/24/16 09:24 MCV 93 fl (79-97) 09/24/16 09:24 MCH 30 pg (28-32) 09/24/16 09:24 MCHC 32 % (30-34) 09/24/16 09:24 RDW 17.0 % (13.2-15.2) H 09/24/16 09:24 Plt Count 383 K/mm3 (140-440) 09/24/16 09:24 Lymph % (Auto) 19.0 % (13.4-35.0) 09/23/16 13:13 [place] % (Auto) 8.4 % (0.0-7.3) H 09/23/16 13:13 Eos % (Auto) 5.8 % (0.0-4.3) H 09/23/16 13:13 Baso % (Auto) 0.3 % (0.0-1.8) 09/23/16 13:13 Lymph # 3.3 K/mm3 (1.2-5.4) 09/23/16 13:13 [place] # 1.4 K/mm3 (0.0-0.8) H 09/23/16 13:13 Eos # 1.0 K/mm3 (0.0-0.4) H 09/23/16 13:13 Baso # 0.0 K/mm3 (0.0-0.1) 09/23/16 13:13 Seg Neutrophils % 66.5 % (40.0-70.0) 09/23/16 13:13 Seg Neutrophils # 11.4 K/mm3 (1.8-7.7) H 09/23/16 13:13 Sodium 136 mmol/L (137-145) L 09/25/16 04:54 Potassium 3.4 mmol/L (3.6-5.0) L 09/25/16 04:54 Chloride 98.1 mmol/L (98-107) 09/25/16 04:54 Carbon Dioxide 28 mmol/L (22-30) 09/25/16 04:54 Anion Gap 13 mmol/L 09/25/16 04:54 BUN 16 mg/dL (7-17) 09/25/16 04:54 Creatinine 1.5 mg/dL (0.7-1.2) H 09/25/16 04:54 Estimated GFR 42 ml/min 09/25/16 04:54 BUN/Creatinine Ratio 10.66 % 09/25/16 04:54 Glucose 163 mg/dL (65-100) H 09/25/16 04:54 POC Glucose 136 (70-105) H 09/26/16 11:39 Calcium 8.5 mg/dL (8.4-10.2) 09/25/16 04:54 NT-Pro-B Natriuret Pep 9330 pg/mL (0-900) H 09/23/16 13:13
[2016-09-26 14:15] VITALS: BP 124/51
[2016-09-26] MEDS: KEPPRA FEEDTUBE SCH (14:25)
--- NOTE | 2016-09-26 15:16 | Discharge Summary ---
Providers - Providers Date of Admission: 09/23/16 15:10 Attending physician: REESE GALLAGHER 09/23/16 15:50 Consult to Physician [CONS] Routine Consulting Provider: JAVON SERRANO Reason For Exam: ESRD wih missed HD Place consult to:: Antonio Notified:: PLEASE CALL MD IN AM Was contact made?: Yes Comment:: said to place patient on list 09/24/16 09:42 Consult to Dietitian/Nutrition [CONS] Stat Physician Instructions: Reason For Exam: Reason for Consult: Write/Manage Tube Feeding 09/25/16 03:44 Consult to Wound/ET Nurse [CONS] Routine Reason For Exam: wound eval 09/25/16 08:18 Consult to Interventional Radiology [CONS] Routine Consulting Provider: ADITHYA GIBSON Reason For Exam: Infected Catheter Place consult to:: PEGGY Lieberman Notified:: DAVID Phone number called:: IN HOUSE Was contact made?: Yes If yes, spoke with:: DAVID Time called:: 09:47 Comment:: TYRESE NOTIFIED Physical Therapy Evaluation and Treat [CONS] Routine Comment: Reason For Exam: weak Primary care physician: [employer] Hospitalization Condition: Stable Hospital course: 66 YO Female admitted for sepsis, chronic decubitus ulcer infection. Pt treated IAW sepsis protocol: Pt treated with IV abx, IVF, and supportive care. Vascular surgery service consulted and permacath site evaluated . Nephrology team consulted for dialysis and patient underwent dialysis via permacath. Pt treated with supportive care which resulted in improvement in symptoms. Pt convalesced well during hospital course. Pt evaluated prior to discharge but no significant new physical exam findings since admission. Pt medically optimized. Pt subsequently discharged to SNF under care of medical claims processor. Pt instructed to f/u pcp 1wk, Nephrology as directed. 34 minutes dedicated to patient discharge and education. Pt to have repeat CBC and permacath reevaluation as outpatient as per vascular surgery. Pt to resume outpatient antibiotics as per SNF medical claims processor. Disposition: DC/TX HOME UNDER HOME HEALTH - Discharge Diagnoses (1) Vascular catheter infection Status: Acute Qualifiers: Encounter type: E (2) End-stage renal disease needing dialysis Status: Acute (3) DVT prophylaxis Status: Acute Core Measure Documentation - Palliative Care Palliative Care/ Comfort Measures: Not Applicable - Core Measures Any of the following diagnoses?: none Exam - Constitutional Vitals: Temp Pulse Resp BP Pulse Ox 97.9 F 102 H 98 H 124/51 99 09/26/16 12:15 09/26/16 14:16 09/26/16 14:16 09/26/16 12:15 09/25/16 23:00 General appearance: Present: no acute distress - EENT Eyes: Present: PERRL ENT: hearing intact - Neck Neck: Present: supple - Respiratory Respiratory: bilateral: diminished - Cardiovascular Rhythm: regular Heart Sounds: Present: S1 & S2 - Extremities Extremities: no ischemia Peripheral Pulses: within normal limits - Abdominal General gastrointestinal: Present: soft, non-tender, non-distended - Integumentary Integumentary: Present: clear, dry - Musculoskeletal Musculoskeletal: generalized weakness - Psychiatric Psychiatric: appropriate mood/affect, cooperative - Neurologic Neurologic: CNII-XII intact Plan Activity: advance as tolerated Diet: renal Follow up with: PRIMARY CAREMD [Primary Care Provider] - 3-5 Days
--- NOTE | 2016-09-26 17:55 | Progress Note ---
Assessment and Plan - Patient Problems (1) End-stage renal disease needing dialysis Status: Acute Plan to address problem: Patient was last dialyzed 2 days ago. Her usual schedule is TTS. Continue hemodialysis three times a week. (2) Vascular catheter infection Status: Acute Qualifiers: Encounter type: E Plan to address problem: Enterococcus bacteremia. On Vancomycin. (3) Anemia, chronic renal failure Status: Acute Qualifiers: Chronic kidney disease stage: C Plan to address problem: Epogen prn. (4) Pressure ulcer Status: Acute Qualifiers: Pressure ulcer stage: P (5) Diabetes mellitus, type 2 Status: Chronic Qualifiers: Diabetes mellitus complication status: D Diabetes mellitus complication detail: D Diabetic retinopathy severity: D Proliferative retinopathy type: P Diabetes mellitus macular edema: D Diabetes mellitus detention insulin use : D Laterality: L Chronic kidney disease stage: C Subjective Date of service: 09/26/16 Principal diagnosis: ESRD Interval history: Patient is a poor historian. Patient was seen and examined at bedside at 7:20 AM. Late entry due to [employer] downtime. Patient was discharged home. Objective - Vital Signs Vital signs: Vital Signs - 12hr 09/26/16 09/26/16 09/26/16 08:55 09:00 09:15 Temperature 97.9 F Pulse Rate 107 H 105 H 100 H Pulse Rate [ Anterior Bilateral Throughout] Respiratory 20 Rate Respiratory Rate [Anterior Bilateral Throughout] Blood Pressure 127/50 125/51 118/49 09/26/16 09/26/16 09/26/16 09:30 09:45 10:00 Temperature Pulse Rate 101 H 101 H 104 H Pulse Rate [ Anterior Bilateral Throughout] Respiratory Rate Respiratory Rate [Anterior Bilateral Throughout] Blood Pressure 136/50 110/52 137/54 09/26/16 09/26/16 09/26/16 10:15 10:30 10:45 Temperature Pulse Rate 102 H 103 H 110 H Pulse Rate [ Anterior Bilateral Throughout] Respiratory Rate Respiratory Rate [Anterior Bilateral Throughout] Blood Pressure 126/47 125/51 122/62 09/26/16 09/26/16 09/26/16 11:00 11:15 11:30 Temperature Pulse Rate 107 H 102 H 103 H Pulse Rate [ Anterior Bilateral Throughout] Respiratory Rate Respiratory Rate [Anterior Bilateral Throughout] Blood Pressure 133/55 119/50 115/52 09/26/16 09/26/16 09/26/16 11:45 12:00 12:15 Temperature 97.9 F Pulse Rate 100 H 99 H 98 H Pulse Rate [ Anterior Bilateral Throughout] Respiratory 20 Rate Respiratory Rate [Anterior Bilateral Throughout] Blood Pressure 129/59 116/46 124/51 09/26/16 09/26/16 14:16 14:25 Temperature Pulse Rate Pulse Rate [ 102 H 106 H Anterior Bilateral Throughout] Respiratory Rate Respiratory 18 19 Rate [Anterior Bilateral Throughout] Blood Pressure - General Appearance General appearance: well-developed, well-nourished, other (no distress) EENT: mucous membranes moist, hearing intact Neck: supple Respiratory: Present: Clear to Ascultation Cardiology: regular, S1S2, no murmurs Gastrointestinal: normoactive bowel sounds, no tenderness, no distended Integumentary: other (dressing over both legs) Neurologic: hemiplegic (left sided hemiplegia, confused) Musculoskeletal: other (bilateral LE wound) - Lab 09/24/16 09:24 09/25/16 04:54 Most recent lab results Calcium 8.5 mg/dL (8.4-10.2) 09/25/16 04:54
== END 2016-09-26 17:15 | disposition home or self-care (01) | DRG 314 ==
LOC: ED 12:44 → 3A 15:10
PROVIDERS: ADMIT Family Medicine; ATTEND Internal Medicine
PROC: 5A1D00Z (ICD-10-PCS; principal; 2016-09-24)
DX: T82.7XXA Infection and inflammatory reaction due to other cardiac and vascular devices, implants and grafts, initial encounter (principal); G93.41 Metabolic encephalopathy; N18.6 End stage renal disease; E87.1 Hypo-osmolality and hyponatremia; I13.2 Hypertensive heart and chronic kidney disease with heart failure and with stage 5 chronic kidney disease, or end stage renal disease; I69.354 Hemiplegia and hemiparesis following cerebral infarction affecting left non-dominant side; I50.9 Heart failure, unspecified; E11.22 Type 2 diabetes mellitus with diabetic chronic kidney disease; J45.909 Unspecified asthma, uncomplicated; F03.90 Unspecified dementia, unspecified severity, without behavioral disturbance, psychotic disturbance, mood disturbance, and anxiety; F41.9 Anxiety disorder, unspecified; J44.9 Chronic obstructive pulmonary disease, unspecified; D63.1 Anemia in chronic kidney disease; E87.6 Hypokalemia; L89.159 Pressure ulcer of sacral region, unspecified stage; G89.4 Chronic pain syndrome; Y92.89 Other specified places as the place of occurrence of the external cause; Z87.891 Personal history of nicotine dependence; Z83.3 Family history of diabetes mellitus; Z82.49 Family history of ischemic heart disease and other diseases of the circulatory system; Z82.3 Family history of stroke; Z91.041 Radiographic dye allergy status; Z79.4 Long term (current) use of insulin; Z98.890 Other specified postprocedural states; Z93.1 Gastrostomy status; Z99.2 Dependence on renal dialysis
CPT/HCPCS: 36415; 71010; 80048; 82947; 82962; 83880; 85025; 85027; 87040; 87076; 87116; 87185; 87186; 93005; 93010; 94640; 99285; J0885; J1644; J1815; J1818; J2185; J3370; J7030; J7040; Q0163

== ENCOUNTER 2016-11-15 15:49 | Inpatient (IN) | payer MEDICARE ==
--- NOTE | 2016-11-15 17:01 | Emergency Department Report ---
HPI - General Chief Complaint: Abdominal Pain Time Seen by Provider: 11/15/16 16:42 - HPI HPI: Room 8 The patient is a 66-year-old female presenting with a chief complaint of G-tube abnormality. Staff at [facility] states when the patient returned from hemodialysis today her G-tube. Patient cut shortened had a port placed on. They states they were unable to flush the 2 so they sent the patient to the ED for evaluation. 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 Anemia - Surgical History Past Surgical History?: Yes Additional Surgical History: toe surgery, PEG tube - Family History Family history: no significant - Social History Smoking Status: Never Smoker Substance Use Type: Prescribed - Medications Home Medications: Home Medications Medication Instructions Recorded Confirmed Last Taken Type Bisacodyl [Dulcolax suppos] 10 mg NC QDAY PRN #30 supp.rect 12/14/15 08/11/16 Unknown Rx levETIRAcetam [Keppra TAB] 500 mg PO Q12H tablet 12/14/15 08/11/16 Unknown Rx Acetaminophen [Acetaminophen TAB] 650 mg FEEDTUBE Q6HR PRN 03/10/16 08/11/16 Unknown History Ascorbic Acid [Vitamin C] 500 mg FEEDTUBE BID 03/10/16 08/11/16 Unknown History Diphenhydramine HCl [Benadryl 25 mg FEEDTUBE Q6H PRN 03/10/16 08/11/16 Unknown History Allergy TAB] Duloxetine HCl [Cymbalta] 60 mg FEEDTUBE QDAY 03/10/16 08/11/16 Unknown History Insulin Regular, Human [HumuLIN R] 100 units SQ ACHS 03/10/16 08/11/16 Unknown History LORazepam [Ativan] 1 mg PO TID PRN 03/10/16 08/11/16 Unknown History Metoprolol Tartrate 100 mg PO BID 03/10/16 08/11/16 Unknown History amLODIPine [Norvasc] 10 mg FEEDTUBE QDAY 03/10/16 08/11/16 Unknown History hydrALAZINE [Apresoline TAB] 100 mg FEEDTUBE TID 03/10/16 08/11/16 Unknown History Insulin Aspart Prot/Aspart See Protocol SUB-Q ACHS 05/27/16 08/11/16 Unknown History [NovoLOG Mix 70/30 VIAL] Insulin Glargine [Lantus VIAL] 10 unit SUB-Q QHS 05/27/16 08/11/16 Unknown History Multivitamins Liq [Multiple 15 ml FEEDTUBE QDAY 05/27/16 08/11/16 Unknown History Vitamin Liq (Theragran)] Nut.tx.gluc.intoler,Lac-Fr,Soy 50 ml FEEDTUBE CONT 05/27/16 08/11/16 Unknown History [Glucerna 1.5 [place]] Lipase/Protease/Amylase [Pancreaze 1 each FEEDTUBE PRN PRN #1 capsule 05/31/16 08/11/16 Unknown Rx 10,500 Unit] Sennosides Tab [Senokot] 8.6 mg FEEDTUBE QDAY tablet 05/31/16 08/11/16 Unknown Rx Simple Syrup 15 ml FEEDTUBE PRN PRN #1 oral.liqd 05/31/16 08/11/16 Unknown Rx Simple Syrup 30 ml FEEDTUBE PRN PRN #1 oral.liqd 05/31/16 08/11/16 Unknown Rx Sodium Bicarbonate 325 mg FEEDTUBE PRN PRN #1 tablet 05/31/16 08/11/16 Unknown Rx Aspirin EC [Aspirin Enteric Coated 325 mg FEEDTUBE QDAY 08/11/16 08/11/16 Unknown History TAB] Famotidine [Pepcid] 20 mg PO DAILY tablet 08/28/16 Unknown Rx Insulin Detemir [Levemir] 30 units SUB-Q QDDIAB units 08/28/16 Unknown Rx Ipratropium/Albuterol Sulfate 1 ampul IH TIDRT ampul.neb 08/28/16 Unknown Rx [Duoneb 0.5 mg-3 mg/3 ml Soln] Cholestyramine (with Sugar) 8 gm PO QD 7 Days 10/11/16 Unknown Rx [Questran] ED Review of Systems ROS: Stated complaint: GI TUBE OUT Other details as noted in HPI Comment: All other systems reviewed and negative Constitutional: denies: chills, fever Eyes: denies: eye pain, eye discharge, vision change ENT: denies: ear pain, throat pain Respiratory: denies: cough, shortness of breath, wheezing Cardiovascular: denies: chest pain, palpitations Endocrine: no symptoms reported Gastrointestinal: abdominal pain. denies: nausea, diarrhea Genitourinary: denies: urgency, dysuria, discharge Musculoskeletal: denies: back pain, joint swelling, arthralgia Skin: denies: rash, lesions Neurological: denies: headache, weakness, paresthesias Psychiatric: denies: anxiety, depression Hematological/Lymphatic: denies: easy bleeding, easy bruising Physical Exam - Physical Exam Vital Signs: Vital Signs 11/15/16 16:11 Temperature 97.8 F Pulse Rate 98 H Respiratory 16 Rate Blood Pressure 148/81 O2 Sat by Pulse 100 Oximetry Physical Exam: GENERAL: The patient is well-developed well-nourished female lying on stretcher in right lateral decubitus position not appearing to be in acute distress. [] HEENT: Normocephalic. Atraumatic. Patient has moist mucous membranes. NECK: Supple. Trachea midline CHEST/LUNGS: Clear to auscultation. There is no respiratory distress noted. HEART/CARDIOVASCULAR: Regular. There is no tachycardia. There is no gallop rub or murmur. ABDOMEN: Abdomen is soft, nontender. Patient has normal bowel sounds. There is no abdominal distention. There is a G-tube with a port in place SKIN: There is no rash. There is no edema. There is no diaphoresis. NEURO: The patient is awake and responsive. The patient is cooperative. The patient has normal speech MUSCULOSKELETAL: There is no evidence of acute injury. ED Course Vital Signs 11/15/16 16:11 Temperature 97.8 F Pulse Rate 98 H Respiratory 16 Rate Blood Pressure 148/81 O2 Sat by Pulse 100 Oximetry ED Medical Decision Making - Lab Data Result diagrams: 11/15/16 17:36 11/15/16 17:36 Laboratory Tests 11/15/16 03 17:36 17:36 WBC 13.6 H RBC 3.02 L Hgb 9.1 L Hct 28.4 L MCV 94 MCH 30 MCHC 32 RDW 17.3 H Plt Count 367 Lymph % (Auto) 18.0 [place] % (Auto) 8.8 H Eos % (Auto) 2.5 Baso % (Auto) 0.5 Lymph # 2.4 [place] # 1.2 H Eos # 0.3 Baso # 0.1 Seg Neutrophils % 70.2 H Seg Neutrophils # 9.5 H Sodium 130 L Potassium 3.1 L Chloride 92.8 L Carbon Dioxide 24 Anion Gap 16 BUN 27 H Creatinine 1.7 H Estimated GFR 37 BUN/Creatinine Ratio 15.88 Glucose 140 H Calcium 8.6 Total Bilirubin 0.3 AST 12 ALT 6 L Alkaline Phosphatase 157 H Total Protein 7.4 Albumin 2.4 L Albumin/Globulin Ratio 0.5 - Radiology Data Radiology results: report reviewed (CT abdomen and pelvis), image reviewed (CT abdomen pelvis) CT abdomen and pelvis (discussed with radiologist)- multiple new low density lesion scattered and liver. These were not visualized on the prior study 2015. Consider metastatic disease or multiple abscesses. Multiple low density lesions are also seen in the spleen. There is poor definition of the bones of the symphysis pubis and the inferior pubic ramus. I cannot exclude bony metastatic disease. Considerable body bone scan for further evaluation. Percutaneous gastrostomy tube has been pulled back and now lives in the subcutaneous soft tissues of the anterior abdominal wall and is not longer located within the stomach. - Differential Diagnosis dislodged G-tube Critical care attestation.: If time is entered above; I have spent that time in minutes in the direct care of this critically ill patient, excluding procedure time. ED Disposition Clinical Impression: Mass of multiple sites of liver, Splenic mass, Dislodged gastrostomy tube, Leukocytosis Disposition: OP ADMITTED IP TO THIS HOSP Is pt being admited?: Yes Does the pt Need Aspirin: Yes Condition: Serious Instructions: Abdominal Pain (ED) Referrals: PRIMARY CARE, [Primary Care Provider] - 3-5 Days Time of Disposition: 18:29 (hospitalist notified)
[2016-11-15 17:59] LABS: Basophils % (Auto) 0.5 % (0.0-1.8); Eosinophils % (Auto) 2.5 % (0.0-4.3); Hematocrit 28.4 % (30.3-42.9); Hemoglobin 9.1 gm/dl (10.1-14.3); Mean Corpuscular HGB Conc 32 % (30-34); Mean Corpuscular Hemoglobin 30 pg (28-32); Mean Corpuscular Volume 94 fl (79-97); Platelet Count 367 K/mm3 (140-440); Red Blood Count 3.02 M/mm3 (3.65-5.03); Red Cell Distribution Width 17.3 % (13.2-15.2); White Blood Count 13.6 K/mm3 (4.5-11.0)
[2016-11-15 18:09] LABS: Albumin 2.4 g/dL (3.9-5); Albumin/Globulin Ratio 0.5 %; BUN/Creatinine Ratio 15.88; Bilirubin,Total 0.3 mg/dL (0.1-1.2); Calcium 8.6 mg/dL (8.4-10.2); Chloride 92.8 mmol/L (98-107); Potassium 3.1 mmol/L (3.6-5.0); Total Protein 7.4 g/dL (6.3-8.2)
--- NOTE | 2016-11-15 18:15 | Cat Scan Report ---
FINAL REPORT PROCEDURE: CT ABDOMEN PELVIS WO CON TECHNIQUE: Computerized axial tomography of the abdomen and pelvis was performed without intravenous contrast. This study is performed without intravascular contrast material and its sensitivity for abdominal and pelvic pathology, including neoplasms, inflammation, abscess, free fluid, thrombosis, arterial dissection and infarction, is reduced compared with a contrast enhanced study. HISTORY: abd pain. Reported history of dislodged G-tube COMPARISON: Prior study 03/09/2016 FINDINGS: Lower Lung mcbride: There are linear bands of increased density in the lung bases right side greater than left suggesting bands of atelectasis. Calcifications incidentally noted in the coronary arteries indicating atherosclerotic disease. Lung bases otherwise are unremarkable. Upper Abdomen: There are multiple new low-density lesions seen in the liver. The largest is in the right lobe of the liver measuring 5.1 x 7.6 centimeter. Multiple other lesions seen scattered in the right and left lobes of the liver measuring up to 2.3 centimeters in greatest diameter. The liver is enlarged measuring up to 24 centimeters greatest craniocaudal dimension. There also appear to be several low-density lesions in the spleen measuring up to 3.5 centimeters. I cannot exclude metastatic disease. Gallbladder is distended. There is increased density dependently in the gallbladder suggesting cholelithiasis and/or sludge. The adrenal glands are unremarkable. The pancreas is unremarkable. There is a percutaneous gastrostomy tube in place however the balloon is inflated in the subcutaneous tissues near the anterior abdominal wall. There inflammation and gas bubbles in the vicinity which may be due to recent injection or could be due to localized infection. This is visualized on image 73 series 3 axial image and multiple adjacent images. Mild to moderate diffuse body wall edema is visualized. Kidneys, Ureters and Urinary bladder: Renal arterial calcifications are visualized bilaterally. I cannot exclude small nonobstructing calculi in both kidneys. There are no masses or hydronephrosis visualized. No ureteral calculi are seen. Urinary bladder is unremarkable. Low-density nodules again seen projecting anteriorly from the upper 3rd of the right kidney measuring 6.8 centimeter which appears represent a large renal cortical cyst. Retroperitoneum: Atherosclerotic changes are seen in the abdominal aorta. No aneurysm is visualized. Nonspecific subcentimeter lymph nodes are seen in the retroperitoneum. No pathologically enlarged lymph nodes are identified. Bowel: Mild sigmoid diverticulosis visualized. There are few scattered diverticuli in the transverse colon. No evidence of diverticulitis. There is also mild diverticulosis visualized in the right side of the colon. Normal-appearing appendix is seen in the right lower quadrant. Reproductive organs: Uterus is deviated to the left of midline otherwise unremarkable. There is an oval mass in the left adnexa measuring 5.2 x 4.1 centimeter. A portion of this contains adipose tissue additional portions inferiorly are intermediate density. This may have enlarged slightly since the prior study where it measured 4.5 x 3.9 centimeters. Other: The cortex of the symphysis pubis is now poorly defined. There is also less definition of the inferior pubic ramus cortex bilaterally. I cannot exclude metastatic disease to bone. IMPRESSION: Multiple new low-density lesions scattered in the liver. These were not visualized on the prior study 03/09/2016. Consider metastatic disease or multiple abscess. Multiple low-density lesions are also seen in the spleen as described. Dermoid or teratoma again visualize left ovary. This may have enlarged slightly since the prior exam. Mild colonic diverticulosis without evidence of diverticulitis. There is now poor definition of the bones of the symphysis pubis and the inferior pubic ramus. I cannot exclude bony metastatic disease. Consider whole-body bone scan for further evaluation. Percutaneous gastrostomy tube has been pulled back and now lies in the subcutaneous soft tissues of the anterior abdominal wall and is not longer located within the stomach... Please see above comments. .
--- NOTE | 2016-11-15 18:48 | Admit Criteria Form ---
Admission Criteria Documentation: GASTROENTEROLOGY GRG Clinical Indications for Admission to Inpatient Care (Place 'X' for any and all applicable criteria): Hospital admission is needed for appropriate care of the patient because of ANY ONE of the following: [ ]I. Hemoperitoneum(7) [ ]II. Ascites requiring acute treatment indicated by ANY ONE of the following( 8)(9): [ ]a) Hemodynamic instability remaining after emergency or observation level care (as appropriate) [ ]b) Peritoneal signs present (eg, abdominal rigidity, rebound tenderness, absent bowel sounds) [ ]c) Tachypnea, Hypoxemia, or other respiratory symptoms remain after emergency or observation level care (as appropriate) [ ]d) Suspected infected ascites as indicated by ANY ONE of the following: [ ]i) Temperature greater than 100 degrees F (37.8 degrees C) [ ]ii) Abdominal pain or tenderness not relieved by paracentesis [ ]iii) Systemic signs of infection (eg, elevated WBC count, fever) [ ]iv) Ascitic fluid analysis consistent with infection ( eg, elevated WBC count): [ ]v) Vital sign abnormality [ ]III. Suspected acute intra-abdominal process indicated by ANY ONE of the following(1)(2)(3)(4)(5): [ ]a) Hemodynamic instability [ ]b) Peritoneal signs present (eg, abdominal rigidity, rebound tenderness, absent bowel sounds) [ ]c) Bowel obstruction suspected (eg, severe vomiting, abdominal distension) [ ]d) Suspected mesenteric ischemia or ischemic colitis(6) [ ]e) Other signs or symptoms of acute abdominal disease (eg, severe pain, free air): [ ]IV. Severe liver disease indicated by ANY ONE of the following(8)(9)(10)(11)( 12)(13)(14): [ ]a) Acute hepatitis (eg, transaminase level greater than 1000 IU/L) [ ]b) Acute elevation of prothrombin time to more than 50% above normal or INR greater than 1.5 [ ]c) Bilirubin greater than 20 mg/dL (342 micromoles/L) (15) [ ]d) New-onset or worsening hepatic encephalopathy [ ]e) Acute liver necrosis [ ]f) Vomiting or dehydration that is severe of persistent [ ]g) Hemodynamic instability due to liver disease [ ]h) Acute renal failure [ ]i) Hepatic abscess [ ]j) Dehydration that is severe or persistent [ ]k) Hepatic hydrothorax(21) [ ]l) Other indications of severe liver disease (eg, persistent fever , ingestion of hepatotoxin) [ ]V. Severe diarrhea indicated by ANY ONE of the following(17)(18)(19)(20)(21)( 22)(23): [ ]a) High fever or other high-risk infection situation [ ]b) Intractable bloody diarrhea (eg, more than 6 bloody stools per day) [ ]c) Suspected Clostridium difficile-associated diarrhea(24) [ ]d) Change in mental status that persists after emergency or observation level care (as appropriate) [ ]e) Severe dehydration (eg, greater than 9% loss of body weight in children) [ ]f) Inability to maintain hydration [ ]g) Peritoneal signs present (eg, abdominal rigidity, rebound tenderness, absent bowel sounds) [ ]h) Abdominal ischemia suspected(6) [ ]i) Hemodynamic instability that persists after emergency or observation level care (as appropriate) [ ]j) Severe electrolyte abnormalities requiring inpatient care [ ]k) Acute renal failure [ ]. Suspected toxic megacolon(5)(6) [ ]VII.Severe dysphagia indicated by ANY ONE of the following(25)(26): [ ]a) Suspected esophageal perforation or fistula(27) [ ]b) Suspected cause that requires inpatient care (eg, caustic ingestion, severe esophagitis) (28) [ ]c) Severe dehydration (eg, greater than 9% loss of body weight in children) [ ]d) Inability to manage secretions or maintain hydration [ ]e) Hemodynamic instability that persists after emergency or observation level care (as appropriate) [ ]f) Severe electrolyte abnormalities requiring inpatient care [ ]g) Acute renal failure [ ]VIII.Vomiting and ANY ONE of the following (29)(30)(31)(32): [ ]a) High fever or other high-risk infection situation [ ]b) Change in mental status that persists after emergency or observation level care (as appropriate) [ ]c) Severe dehydration (e.g., greater than 9% loss of body weight in children) [ ]d) Peritoneal signs present (e.g., abdominal rigidity, rebound tenderness, absent bowel sounds) [ ]e) Hemodynamic instability that persists after emergency or observation level care (as appropriate) [ ]f) Severe electrolyte abnormalities requiring inpatient care [ ]g) Acute renal failure [ ]h) Bowel obstruction suspected (e.g., severe vomiting, abdominal distension) [ ]i) Vomiting that is severe or persistent after medical treatment [ ]IX. Significant dehydration indicated by ANY ONE of the following(23)(24)(25) [ ]a) Clinical findings of severe dehydration indicated by ANY ONE of the following: [ ]i) Acute loss of weight from baseline (5% of body weight in adults, 9% in pediatric patients) [ ]ii) Hemodynamic instability [ ]iii) Acute renal failure [ ]iv) Serum sodium greater than 150 mEq/L (mmol/L) [ ]b) Dehydration that is persistent indicated by ALL of the following: [ ]i) Oral rehydration therapy not tolerated or insufficient to adequately correct dehydration [ ]ii) Appropriate intravenous treatment (eg, fluids) does not readily correct dehydration hours of (ie, after 12 to 24 of treatment) [ ]X. Gastroparesis and ANY ONE of the following(37)(38)(39): [ ]a) Dehydration that is severe or persistent [ ]b) Severe electrolyte abnormalities requiring inpatient care [ ]c) Acute renal failure [ ]d) Vomiting that is severe or persistent [ ]XI. Complications of transplanted liver indicated by ANY ONE of the following (40)(41): [ ]a) Acute graft rejection requiring inpatient management (eg, intravenous immunosuppression)(42) [ ]b) Failure of transplanted liver as indicated by ANY ONE of the following: [ ]i) Acute hepatitis (eg, transaminase level greater than 1000 International Units per liter (IU/L)) [ ]ii) Acute elevation of prothrombin time to more than 50% above baseline or INR greater than 1.5 [ ]iii) Bilirubin greater than 20 mg/dL (342 micromoles/L) [ ]iv) New-onset or worsening hepatic encephalopathy [ ]v) Acute elevation of serum ammonia level (eg, greater than 210 mcg/dL (150 micromoles/L)) [ ]vi) Acute liver necrosis [ ]c) Infection requiring inpatient management (eg, Hemodynamic instability, need for intravenous antimicrobial treatment)(43)(44)(45)(46)(47)(48)(49)(50) [ ]d) Other complication of transplanted liver (eg, thrombosis, autoimmune hepatitis, variceal bleeding) requiring inpatient management(51)(52) [ ]XII Complications of transplanted pancreas indicated by ANY ONE of the following(53): [ ]a) Acute graft rejection requiring inpatient management (eg, intravenous immunosuppression)(42)(54) [ ]b) Failure of transplanted pancreas as indicated by ANY ONE of the following: [ ]i) Serum amylase greater than 3 times the upper limit of normal or baseline [ ]ii) Serum lipase greater than 3 times the upper limit of normal or baseline [ ]iii) Imaging findings consistent with pancreatic inflammation or necrosis [ ]c) Infection requiring inpatient management (eg, Hemodynamic instability, need for intravenous antimicrobial treatment)(43)(44)(45)(46)(47)(48)(49)(50) [ ]d) Other complication of transplanted liver (eg, thrombosis, autoimmune hepatitis, variceal bleeding) requiring inpatient management(51)(52) [X ]X. Gastroenterology condition and ALL of the following: [X ]a) Symptom or finding for which emergency and observation care have failed or are not considered appropriate (Also use General Criteria: Observation Care as appropriate) [X]b) Presence of ANY ONE of the following: [X ]i) A General Admission Criteria [ ]ii) A Pediatric General Admission Criteria. The original [facility] [employer] content created by [facility] [employer] has been revised. The portions of the content which have been revised are identified through the use of italic text or in bold,and [facility] has neither reviewed nor approved the modified material. All other unmodified content is copyright [facility]. Please see references footnoted in the original [facility] edition 2016 Admission Criteria Met: Yes
[2016-11-15] MEDS ORDERED: SODIUM BICARBONATE FEEDTUBE PRN (21:25)
[2016-11-15] MEDS ORDERED: SIMPLE SYRUP FEEDTUBE PRN ×2 (21:25)
[2016-11-15] MEDS ORDERED: TYLENOL FEEDTUBE PRN (21:25)
[2016-11-15] MEDS ORDERED: PANCREAZE DR 10,500 UNIT FEEDTUBE PRN (21:25)
[2016-11-15] MEDS ORDERED: ATIVAN PO PRN (21:25)
[2016-11-15] MEDS ORDERED: DULCOLAX PR PRN ×2 (21:25→21:30)
[2016-11-15] MEDS ORDERED: TYLENOL PO PRN (21:30)
[2016-11-15] MEDS ORDERED: NUT TX GLUC INTOLER LAC FR SOY FEEDTUBE SCH (21:30)
[2016-11-15] MEDS ORDERED: MILK OF MAGNESIA PO PRN (21:30)
[2016-11-15] MEDS ORDERED: [UNRECOGNIZED DRUG - OTHER] FEEDTUBE SCH (21:30)
[2016-11-15] MEDS ORDERED: ZOFRAN IV PRN (21:30)
[2016-11-15] MEDS ORDERED: NOVOLOG SUB-Q ONE (21:37)
--- NOTE | 2016-11-15 21:39 | History and Physical Report ---
History of Present Illness Date of examination: 11/15/16 Date of admission: 11/15/16 Chief complaint: G tube malfunction History of present illness: 66 y/o female with multiple medical problems including ESRD HTN DM and decub ulcers sent from [facility] for G tube malfunction.No fever or chills.No SOB chest pain etc Past History Past Medical History: COPD (Multiple dec ulcers incl R boston L heel and sacrum), diabetes, dialysis, ESRD, hypertension, renal failure, stroke, other Past Surgical History: Other (PEG tube) Social history: full code, other ([facility] resident) Medications and Allergies Allergies Allergy/AdvReac Type Severity Reaction Status Date / Time Iodine and Iodide Containing Allergy Nausea Verified 05/29/15 12:33 Produc Home Medications Medication Instructions Recorded Confirmed Last Taken Type Bisacodyl [Dulcolax suppos] 10 mg VA QDAY PRN #30 supp.rect 12/14/15 08/11/16 Unknown Rx levETIRAcetam [Keppra TAB] 500 mg PO Q12H tablet 12/14/15 08/11/16 Unknown Rx Acetaminophen [Acetaminophen TAB] 650 mg FEEDTUBE Q6HR PRN 03/10/16 08/11/16 Unknown History Ascorbic Acid [Vitamin C] 500 mg FEEDTUBE BID 03/10/16 08/11/16 Unknown History Diphenhydramine HCl [Benadryl 25 mg FEEDTUBE Q6H PRN 03/10/16 08/11/16 Unknown History Allergy TAB] Duloxetine HCl [Cymbalta] 60 mg FEEDTUBE QDAY 03/10/16 08/11/16 Unknown History Insulin Regular, Human [HumuLIN R] 100 units SQ ACHS 03/10/16 08/11/16 Unknown History LORazepam [Ativan] 1 mg PO TID PRN 03/10/16 08/11/16 Unknown History Metoprolol Tartrate 100 mg PO BID 03/10/16 08/11/16 Unknown History amLODIPine [Norvasc] 10 mg FEEDTUBE QDAY 03/10/16 08/11/16 Unknown History hydrALAZINE [Apresoline TAB] 100 mg FEEDTUBE TID 03/10/16 08/11/16 Unknown History Insulin Aspart Prot/Aspart See Protocol SUB-Q ACHS 05/27/16 08/11/16 Unknown History [NovoLOG Mix 70/30 VIAL] Insulin Glargine [Lantus VIAL] 10 unit SUB-Q QHS 05/27/16 08/11/16 Unknown History Multivitamins Liq [Multiple 15 ml FEEDTUBE QDAY 05/27/16 08/11/16 Unknown History Vitamin Liq (Theragran)] Nut.tx.gluc.intoler,Lac-Fr,Soy 50 ml FEEDTUBE CONT 05/27/16 08/11/16 Unknown History [Glucerna 1.5 [place]] Lipase/Protease/Amylase [Pancreaze 1 each FEEDTUBE PRN PRN #1 capsule 05/31/16 08/11/16 Unknown Rx 10,500 Unit] Sennosides Tab [Senokot] 8.6 mg FEEDTUBE QDAY tablet 05/31/16 08/11/16 Unknown Rx Simple Syrup 15 ml FEEDTUBE PRN PRN #1 oral.liqd 05/31/16 08/11/16 Unknown Rx Simple Syrup 30 ml FEEDTUBE PRN PRN #1 oral.liqd 05/31/16 08/11/16 Unknown Rx Sodium Bicarbonate 325 mg FEEDTUBE PRN PRN #1 tablet 05/31/16 08/11/16 Unknown Rx Aspirin EC [Aspirin Enteric Coated 325 mg FEEDTUBE QDAY 08/11/16 08/11/16 Unknown History TAB] Famotidine [Pepcid] 20 mg PO DAILY tablet 08/28/16 Unknown Rx Insulin Detemir [Levemir] 30 units SUB-Q QDDIAB units 08/28/16 Unknown Rx Ipratropium/Albuterol Sulfate 1 ampul IH TIDRT ampul.neb 08/28/16 Unknown Rx [Duoneb 0.5 mg-3 mg/3 ml Soln] Cholestyramine (with Sugar) 8 gm PO QD 7 Days 10/11/16 Unknown Rx [Questran] Review of Systems All systems: negative Constitutional: no weight loss, no weight gain Ears, nose, mouth and throat: no hoarseness, no sore throat, no swelling in mouth Breasts: deferred, mass Cardiovascular: no chest pain, no orthopnea, no palpitations, no rapid/ irregular heart beat, no syncope Respiratory: no cough with sputum, no excessive sputum, no hemoptysis Gastrointestinal: no nausea, no vomiting, no diarrhea, no constipation, no change in bowel habits, no hematemesis Genitourinary Female: no dysuria, no urinary frequency, no urgency Menstruation: ammenorrhea Musculoskeletal: no neck stiffness, no neck pain Integumentary: foot/leg ulcers (R ankle L heel sacral ), no rash, no pruritis Exam - Constitutional Vitals: Temp Pulse Resp BP Pulse Ox 97.8 F 97 H 20 149/61 97 11/15/16 16:11 11/15/16 19:58 11/15/16 19:58 11/15/16 19:58 11/15/16 19:58 General appearance: Present: no acute distress, well-nourished - EENT Eyes: Present: PERRL ENT: hearing intact, clear oral mucosa - Neck Neck: Present: supple, normal ROM - Respiratory Respiratory effort: normal Respiratory: bilateral: CTA - Cardiovascular Heart Sounds: Present: S1 & S2. Absent: rub, click - Extremities Extremities: pulses symmetrical, No edema Peripheral Pulses: within normal limits - Abdominal General gastrointestinal: Present: soft, non-tender, non-distended, normal bowel sounds Female genitourinary: Present: normal - Integumentary Integumentary: Present: clear, warm, dry - Musculoskeletal Musculoskeletal: gait normal, strength equal bilaterally - Psychiatric Psychiatric: appropriate mood/affect, intact judgment & insight - Neurologic Neurologic: CNII-XII intact, moves all extremities Results - Labs CBC & Chem 7: 11/16/16 06:18 11/16/16 06:18 Labs: Laboratory Last Values WBC 13.6 K/mm3 (4.5-11.0) H 11/15/16 17:36 RBC 3.02 M/mm3 (3.65-5.03) L 11/15/16 17:36 Hgb 9.1 gm/dl (10.1-14.3) L 11/15/16 17:36 Hct 28.4 % (30.3-42.9) L 11/15/16 17:36 MCV 94 fl (79-97) 11/15/16 17:36 MCH 30 pg (28-32) 11/15/16 17:36 MCHC 32 % (30-34) 11/15/16 17:36 RDW 17.3 % (13.2-15.2) H 11/15/16 17:36 Plt Count 367 K/mm3 (140-440) 11/15/16 17:36 Lymph % (Auto) 18.0 % (13.4-35.0) 11/15/16 17:36 [place] % (Auto) 8.8 % (0.0-7.3) H 11/15/16 17:36 Eos % (Auto) 2.5 % (0.0-4.3) 11/15/16 17:36 Baso % (Auto) 0.5 % (0.0-1.8) 11/15/16 17:36 Lymph # 2.4 K/mm3 (1.2-5.4) 11/15/16 17:36 [place] # 1.2 K/mm3 (0.0-0.8) H 11/15/16 17:36 Eos # 0.3 K/mm3 (0.0-0.4) 11/15/16 17:36 Baso # 0.1 K/mm3 (0.0-0.1) 11/15/16 17:36 Seg Neutrophils % 70.2 % (40.0-70.0) H 11/15/16 17:36 Seg Neutrophils # 9.5 K/mm3 (1.8-7.7) H 11/15/16 17:36 Sodium 130 mmol/L (137-145) L 11/15/16 17:36 Potassium 3.1 mmol/L (3.6-5.0) L 11/15/16 17:36 Chloride 92.8 mmol/L (98-107) L 11/15/16 17:36 Carbon Dioxide 24 mmol/L (22-30) 11/15/16 17:36 Anion Gap 16 mmol/L 11/15/16 17:36 BUN 27 mg/dL (7-17) H 11/15/16 17:36 Creatinine 1.7 mg/dL (0.7-1.2) H 11/15/16 17:36 Estimated GFR 37 ml/min 11/15/16 17:36 BUN/Creatinine Ratio 15.88 % 11/15/16 17:36 Glucose 140 mg/dL (65-100) H 11/15/16 17:36 Calcium 8.6 mg/dL (8.4-10.2) 11/15/16 17:36 Total Bilirubin 0.3 mg/dL (0.1-1.2) 11/15/16 17:36 AST 12 units/L (5-40) 11/15/16 17:36 ALT 6 units/L (7-56) L 11/15/16 17:36 Alkaline Phosphatase 157 units/L (35-129) H 11/15/16 17:36 Total Protein 7.4 g/dL (6.3-8.2) 11/15/16 17:36 Albumin 2.4 g/dL (3.9-5) L 11/15/16 17:36 Albumin/Globulin Ratio 0.5 % 11/15/16 17:36 Short CBC 11/15/16 11/16/16 Range/Units 17:36 06:18 WBC 13.6 H 10.3 (4.5-11.0) K/mm3 Hgb 9.1 L 8.7 L (10.1-14.3) gm/dl Hct 28.4 L 27.5 L (30.3-42.9) % Plt Count 367 355 (140-440) K/mm3 BMP 11/15/16 11/16/16 17:36 06:18 Sodium 130 L 135 L Potassium 3.1 L 3.9 D Chloride 92.8 L 97.6 L Carbon Dioxide 24 25 BUN 27 H 32 H Creatinine 1.7 H 2.1 H Glucose 140 H 83 Calcium 8.6 9.0 Liver Function 11/15/16 11/16/16 Range/Units 17:36 06:18 Total Bilirubin 0.3 0.4 (0.1-1.2) mg/dL AST 12 11 (5-40) units/L ALT 6 L < 5 L (7-56) units/L Alkaline Phosphatase 157 H 137 H (35-129) units/L Albumin 2.4 L 2.5 L (3.9-5) g/dL - Imaging and Cardiology CT scan - abdomen: report reviewed (Multiple hypodensity lesions on liver.And bnormal pubic symphysis and inf ramus suspect for mets-Bone scan suggested) Assessment and Plan Advance Directives: Yes Plan of care discussed with patient/family: Yes - Patient Problems (1) Dislodged gastrostomy tube Current Visit: Yes Status: Acute Plan to address problem: Needs replacement of Peg tube. GI consulted (2) Mass of multiple sites of liver Current Visit: Yes Status: Acute Plan to address problem: Abscesses versus Mets.Not visualized in February 2016. Will treat as septic emboli with Zosyn. Bone scan for r/o metastases (3) CVA (cerebral vascular accident) Current Visit: No Status: Chronic Qualifiers: CVA mechanism: thrombosis Precerebral and cerebral artery: middle cerebral artery Laterality of affected vessel: unspecified Qualified Code(s): I63.319 - Cerebral infarction due to thrombosis of unspecified middle cerebral artery Plan to address problem: Supp care (4) HTN (hypertension) Current Visit: Yes Status: Chronic Qualifiers: Hypertension type: essential hypertension Qualified Code(s): I10 - Essential (primary) hypertension Plan to address problem: Cont antihypertensives in the form of Hydralazine metoprolol etc (5) ESRD (end stage renal disease) Current Visit: Yes Status: Chronic Plan to address problem: Needs HD (6) IDDM (insulin dependent diabetes mellitus) Current Visit: Yes Status: Chronic Plan to address problem: Cont Insulin and coverage (7) DVT prophylaxis Current Visit: No Status: Acute (8) Pressure ulcer Current Visit: No Status: Chronic Qualifiers: Pressure ulcer stage: stage II Qualified Code(s): L89.92 - Pressure ulcer of unspecified site, stage 2 Plan to address problem: Rt Ankle l heel and sacrum-Wound care
[2016-11-15] MEDS ORDERED: INSULIN GLARGINE 10 UNIT SUB-Q SCH (22:00)
[2016-11-15] MEDS ORDERED: ASPART SUB-Q SCH (22:00)
[2016-11-15] MEDS ORDERED: PEPCID IV SCH (22:00)
[2016-11-15] MEDS ORDERED: ZOSYN/NS 4.5GM/100ML 4.5 GM/100 ML VIAL IV SCH (22:00)
[2016-11-15] MEDS ORDERED: INSULIN ASPART PROT SUB-Q SCH (22:00)
[2016-11-15] MEDS ORDERED: D5/0.45NS 1,000 ML IV SCH (22:00)
[2016-11-15] MEDS: KCL 10MEQ/100ML 10 MEQ/100 ML BAG IV SCH (23:18)
[2016-11-15] MEDS ORDERED: KCL 10MEQ/100ML 10 MEQ/100 ML BAG IV ONE (23:19)
[2016-11-16] MEDS: KCL 10MEQ/100ML 10 MEQ/100 ML BAG IV SCH ×3 (01:28→04:02)
[2016-11-16] MEDS: KEPPRA PO SCH ×3 (02:11→21:33)
[2016-11-16] MEDS: NORVASC FEEDTUBE SCH ×2 (02:13→19:36)
[2016-11-16] MEDS: LOPRESSOR PO SCH ×3 (02:13→21:22)
[2016-11-16] MEDS: QUESTRAN PO SCH ×2 (02:13→19:35)
[2016-11-16] MEDS: VITAMIN C FEEDTUBE SCH ×3 (02:14→21:22)
[2016-11-16] MEDS: ZOSYN/NS 2.25 GM/50ML 2.25 GM/50 ML BAG IV SCH ×4 (02:14→21:26)
[2016-11-16 06:50] LABS: Basophils % (Auto) 0.7 % (0.0-1.8); Eosinophils % (Auto) 4.1 % (0.0-4.3); Hematocrit 27.5 % (30.3-42.9); Hemoglobin 8.7 gm/dl (10.1-14.3); Mean Corpuscular HGB Conc 32 % (30-34); Mean Corpuscular Hemoglobin 30 pg (28-32); Mean Corpuscular Volume 95 fl (79-97); Platelet Count 355 K/mm3 (140-440); Red Blood Count 2.89 M/mm3 (3.65-5.03); Red Cell Distribution Width 17.2 % (13.2-15.2); White Blood Count 10.3 K/mm3 (4.5-11.0)
[2016-11-16 07:11] LABS: Albumin 2.5 g/dL (3.9-5); Albumin/Globulin Ratio 0.5 %; Alkaline Phosphatase 137 units/L (35-129); Anion Gap 16 mmol/L; BUN/Creatinine Ratio 15.23; Bilirubin,Total 0.4 mg/dL (0.1-1.2); Blood Urea Nitrogen 32 mg/dL (7-17); Carbon Dioxide 25 mmol/L (22-30); Chloride 97.6 mmol/L (98-107); Glucose 83 mg/dL (65-100); Sodium 135 mmol/L (137-145); Total Protein 7.4 g/dL (6.3-8.2)
[2016-11-16 07:23] LABS: Potassium 3.9 mmol/L (3.6-5.0)
[2016-11-16 07:24] LABS: Alanine Aminotransferase < 5 units/L (7-56)
[2016-11-16] MEDS: NOVOLOG SUB-Q SCH ×4 (08:00→21:36)
[2016-11-16] MEDS: APRESOLINE FEEDTUBE SCH ×3 (08:00→23:29)
[2016-11-16] MEDS: DILAUDID IV PRN (10:42)
[2016-11-16] MEDS ORDERED: SIMPLE SYRUP FEEDTUBE PRN ×2 (14:00)
[2016-11-16] MEDS ORDERED: PANCREAZE DR 10,500 UNIT FEEDTUBE PRN (14:00)
[2016-11-16] MEDS ORDERED: SODIUM BICARBONATE FEEDTUBE PRN (14:00)
--- NOTE | 2016-11-16 15:39 | Progress Note ---
Assessment and Plan Assessment and plan: Dislodged gastrostomy tube - Needs replacement of Peg tube. - GI consulted and likely to have the procedure next week - will place on dobhoff for tube feeding Mass of multiple sites of liver - Abscesses versus Mets. Not visualized in February 2016. - Will cont treat as septic emboli with Zosyn. - obtain blood cx - Bone scan for possible metastases - CT guided liver biopsy CVA (cerebral vascular accident) - cont Supp care HTN (hypertension) - Cont antihypertensives and adjust meds as necessary ESRD (end stage renal disease) - Needs HD, nephro consulted IDDM (insulin dependent diabetes mellitus) - Cont Insulin and coverage with tube feeding Pressure ulcer - present on Rt Ankle heel and sacrum -Wound care History Interval history: Patient seen and examined. Medical records and medication list reviewed. No acute event overnight noted by the RN. Patient denies any chest pain or difficulty breathing. Status post removal of old PEG tube, GI was unable to put a new one. Discussed plan of care at bedside with patient and her son. Hospitalist Physical - Physical exam Narrative exam: GENERAL: elderly AAF lying on bed appeared to be in no discomfort. HEENT: Normocephalic. Atraumatic. No conjunctival congestion or icterus. Patient has moist mucous membranes. NECK: Supple. Trachea midline. CHEST/LUNGS: Clear to auscultated bilaterally, breathing nonlabored. No wheezes crackles or rhonchi. HEART/CARDIOVASCULAR: Regular in rate and rhythm. S1 and S2 positive. ABDOMEN: Abdomen is soft, nontender. Patient has normal bowel sounds. wound dressing on place on the middle of abdomen SKIN: There is no rash. Warm and dry. NEURO: Follows command. EXTRIMITY: No edema PSYCH: Cooperative. - Constitutional Vitals: Temp Pulse Resp BP Pulse Ox 98.3 F 88 18 138/62 18 L 11/16/16 08:00 11/16/16 08:00 11/16/16 08:00 11/16/16 08:00 11/16/16 08:00 General appearance: Present: no acute distress, well-nourished Results - Labs CBC & Chem 7: 11/16/16 06:18 11/16/16 06:18 Labs: Laboratory Last Values WBC 10.3 K/mm3 (4.5-11.0) 11/16/16 06:18 RBC 2.89 M/mm3 (3.65-5.03) L 11/16/16 06:18 Hgb 8.7 gm/dl (10.1-14.3) L 11/16/16 06:18 Hct 27.5 % (30.3-42.9) L 11/16/16 06:18 MCV 95 fl (79-97) 11/16/16 06:18 MCH 30 pg (28-32) 11/16/16 06:18 MCHC 32 % (30-34) 11/16/16 06:18 RDW 17.2 % (13.2-15.2) H 11/16/16 06:18 Plt Count 355 K/mm3 (140-440) 11/16/16 06:18 Lymph % (Auto) 29.6 % (13.4-35.0) 11/16/16 06:18 [place] % (Auto) 9.3 % (0.0-7.3) H 11/16/16 06:18 Eos % (Auto) 4.1 % (0.0-4.3) 11/16/16 06:18 Baso % (Auto) 0.7 % (0.0-1.8) 11/16/16 06:18 Lymph # 3.0 K/mm3 (1.2-5.4) 11/16/16 06:18 [place] # 1.0 K/mm3 (0.0-0.8) H 11/16/16 06:18 Eos # 0.4 K/mm3 (0.0-0.4) 11/16/16 06:18 Baso # 0.1 K/mm3 (0.0-0.1) 11/16/16 06:18 Seg Neutrophils % 56.3 % (40.0-70.0) 11/16/16 06:18 Seg Neutrophils # 5.8 K/mm3 (1.8-7.7) 11/16/16 06:18 Sodium 135 mmol/L (137-145) L 11/16/16 06:18 Potassium 3.9 mmol/L (3.6-5.0) D 11/16/16 06:18 Chloride 97.6 mmol/L (98-107) L 11/16/16 06:18 Carbon Dioxide 25 mmol/L (22-30) 11/16/16 06:18 Anion Gap 16 mmol/L 11/16/16 06:18 BUN 32 mg/dL (7-17) H 11/16/16 06:18 Creatinine 2.1 mg/dL (0.7-1.2) H 11/16/16 06:18 Estimated GFR 29 ml/min 11/16/16 06:18 BUN/Creatinine Ratio 15.23 % 11/16/16 06:18 Glucose 83 mg/dL (65-100) 11/16/16 06:18 POC Glucose 105 (70-105) 11/16/16 11:57 Calcium 9.0 mg/dL (8.4-10.2) 11/16/16 06:18 Total Bilirubin 0.4 mg/dL (0.1-1.2) 11/16/16 06:18 AST 11 units/L (5-40) 11/16/16 06:18 ALT < 5 units/L (7-56) L 11/16/16 06:18 Alkaline Phosphatase 137 units/L (35-129) H 11/16/16 06:18 Total Protein 7.4 g/dL (6.3-8.2) 11/16/16 06:18 Albumin 2.5 g/dL (3.9-5) L 11/16/16 06:18 Albumin/Globulin Ratio 0.5 % 11/16/16 06:18 - Imaging and Cardiology CT scan - abdomen: report reviewed
--- NOTE | 2016-11-16 18:28 | Consultation ---
History of Present Illness - History of Present Illness thank you for the consultation Patient was seen today along with her son at the bedside Assessment and plan End-stage renal disease patient currently does not have any acute or emergent indication for renal replacement therapy electrolytes as stable she's breathing comfortably, According to her son she normally dialyzes on Saturday and Saturday and missed her dialysis treatment yesterday she does not appear to have any volume overload Patient has had hemodialysis yesterday Currently admitted with G-tube malfunction GI to see and follow Anemia and end-stage renal disease to monitor Secondary hyperparathyroidism to follow Appears to have metastatic disease based on the CT scan needs oncology input Leukocytosis currently better Follow-up make recommendations from renal standpoint likely will dialyze tomorrow morning Past History Past Medical History: COPD (Multiple dec ulcers incl R boston L heel and sacrum), diabetes, dialysis, ESRD, hypertension, renal failure, stroke, other Past Surgical History: Other (PEG tube) Social history: full code, other ([facility] resident) Medications and Allergies Allergies Allergy/AdvReac Type Severity Reaction Status Date / Time Iodine and Iodide Containing Allergy Nausea Verified 05/29/15 12:33 Produc Home Medications Medication Instructions Recorded Confirmed Last Taken Type Bisacodyl [Dulcolax suppos] 10 mg ID QDAY PRN #30 supp.rect 12/14/15 08/11/16 Unknown Rx levETIRAcetam [Keppra TAB] 500 mg PO Q12H tablet 12/14/15 08/11/16 Unknown Rx Acetaminophen [Acetaminophen TAB] 650 mg FEEDTUBE Q6HR PRN 03/10/16 08/11/16 Unknown History Ascorbic Acid [Vitamin C] 500 mg FEEDTUBE BID 03/10/16 08/11/16 Unknown History Diphenhydramine HCl [Benadryl 25 mg FEEDTUBE Q6H PRN 03/10/16 08/11/16 Unknown History Allergy TAB] Duloxetine HCl [Cymbalta] 60 mg FEEDTUBE QDAY 03/10/16 08/11/16 Unknown History Insulin Regular, Human [HumuLIN R] 100 units SQ ACHS 03/10/16 08/11/16 Unknown History LORazepam [Ativan] 1 mg PO TID PRN 03/10/16 08/11/16 Unknown History Metoprolol Tartrate 100 mg PO BID 03/10/16 08/11/16 Unknown History amLODIPine [Norvasc] 10 mg FEEDTUBE QDAY 03/10/16 08/11/16 Unknown History hydrALAZINE [Apresoline TAB] 100 mg FEEDTUBE TID 03/10/16 08/11/16 Unknown History Insulin Aspart Prot/Aspart See Protocol SUB-Q ACHS 05/27/16 08/11/16 Unknown History [NovoLOG Mix 70/30 VIAL] Insulin Glargine [Lantus VIAL] 10 unit SUB-Q QHS 05/27/16 08/11/16 Unknown History Multivitamins Liq [Multiple 15 ml FEEDTUBE QDAY 05/27/16 08/11/16 Unknown History Vitamin Liq (Theragran)] Nut.tx.gluc.intoler,Lac-Fr,Soy 50 ml FEEDTUBE CONT 05/27/16 08/11/16 Unknown History [Glucerna 1.5 [place]] Lipase/Protease/Amylase [Pancreaze 1 each FEEDTUBE PRN PRN #1 capsule 05/31/16 08/11/16 Unknown Rx 10,500 Unit] Sennosides Tab [Senokot] 8.6 mg FEEDTUBE QDAY tablet 05/31/16 08/11/16 Unknown Rx Simple Syrup 15 ml FEEDTUBE PRN PRN #1 oral.liqd 05/31/16 08/11/16 Unknown Rx Simple Syrup 30 ml FEEDTUBE PRN PRN #1 oral.liqd 05/31/16 08/11/16 Unknown Rx Sodium Bicarbonate 325 mg FEEDTUBE PRN PRN #1 tablet 05/31/16 08/11/16 Unknown Rx Aspirin EC [Aspirin Enteric Coated 325 mg FEEDTUBE QDAY 08/11/16 08/11/16 Unknown History TAB] Famotidine [Pepcid] 20 mg PO DAILY tablet 08/28/16 Unknown Rx Insulin Detemir [Levemir] 30 units SUB-Q QDDIAB units 08/28/16 Unknown Rx Ipratropium/Albuterol Sulfate 1 ampul IH TIDRT ampul.neb 08/28/16 Unknown Rx [Duoneb 0.5 mg-3 mg/3 ml Soln] Cholestyramine (with Sugar) 8 gm PO QD 7 Days 10/11/16 Unknown Rx [Questran] Active Meds: Active Medications Acetaminophen (Tylenol) 650 mg PO Q4H PRN PRN Reason: Pain MILD(1-3)/Fever >100.5/HUFF Amlodipine Besylate (Norvasc) 10 mg FEEDTUBE QDAY [facility] Last Admin: 11/16/16 02:13 Dose: Not Given Lipase/Protease/Amylase (Pancreaze Dr 10,500 Unit) 1 each FEEDTUBE PRN PRN PRN Reason: For Clogged Feeding Tube Ascorbic Acid (Vitamin C) 500 mg FEEDTUBE BID [facility] Last Admin: 11/16/16 02:14 Dose: Not Given Aspirin (Ecotrin) 325 mg PO QDAY [facility] Bisacodyl (Dulcolax) 10 mg ID QDAY PRN PRN Reason: Constipation unrelieved by MOM Cholestyramine Resin (Questran) 8 gm PO QDAY [facility] Last Admin: 11/16/16 02:13 Dose: Not Given Duloxetine HCl (Cymbalta) 60 mg FEEDTUBE QDAY [facility] Famotidine (Pepcid) 20 mg PO DAILY [facility] Heparin Sodium (Porcine) (Heparin) 5,000 unit SUB-Q Q8HR [facility] Hydralazine HCl (Apresoline) 100 mg FEEDTUBE TID [facility] Hydromorphone HCl (Dilaudid) 0.5 mg IV Q3H PRN PRN Reason: Pain , Severe (7-10) Last Admin: 11/16/16 10:42 Dose: 0.5 mg Piperacillin Sod/Tazobactam Sod (Zosyn/Ns 2.25 Gm/50ml) 2.25 gm in 50 mls @ 100 mls/hr IV Q8HR [facility] Insulin Aspart (Novolog) 6 units SUB-Q ACHS [facility] Insulin Detemir (Levemir) 30 units SUB-Q QDDIAB [facility] Insulin Detemir (Levemir) 10 units SUB-Q QHS [facility] Levetiracetam (Keppra) 500 mg PO Q12H [facility] Last Admin: 11/16/16 02:11 Dose: Not Given Lorazepam (Ativan) 1 mg PO TID PRN PRN Reason: Agitation Magnesium Hydroxide (Milk Of Magnesia) 30 ml PO Q4H PRN PRN Reason: Constipation Metoprolol Tartrate (Lopressor) 100 mg PO BID [facility] Last Admin: 11/16/16 02:13 Dose: Not Given Multivitamins (Centrum Liq) 15 ml FEEDTUBE QDAY [facility] Ondansetron HCl (Zofran) 4 mg IV Q8H PRN PRN Reason: N/V unrelieved by Evan Augirre (Senokot) 8.6 mg FEEDTUBE QDAY [facility] Simple Syrup (Simple Syrup) 15 ml FEEDTUBE PRN PRN PRN Reason: Hypoglycemia Simple Syrup (Simple Syrup) 30 ml FEEDTUBE PRN PRN PRN Reason: Hypoglycemia Sodium Bicarbonate (Sodium Bicarbonate) 325 mg FEEDTUBE PRN PRN PRN Reason: For Clogged Feeding Tube Zolpidem Tartrate (Ambien) 5 mg PO QHS PRN PRN Reason: Insomnia Exam - Vital Signs Vital signs: Vital Signs Pulse Ox 100 11/15/16 16:04 Results - Lab Results 11/16/16 06:18 11/16/16 06:18 Most recent lab results Calcium 9.0 mg/dL (8.4-10.2) 11/16/16 06:18 Assessment and Plan HD in am d/w son
[2016-11-16] MEDS: PEPCID PO SCH (19:35)
[2016-11-16] MEDS: SENOKOT FEEDTUBE SCH (19:35)
[2016-11-16] MEDS: LEVEMIR SUB-Q SCH ×2 (19:35→21:33)
[2016-11-16] MEDS: Centrum Liq FEEDTUBE SCH (19:36)
[2016-11-16] MEDS: ECOTRIN PO SCH (19:36)
[2016-11-16] MEDS: CYMBALTA FEEDTUBE SCH (19:36)
[2016-11-16] MEDS ORDERED: SANTYL TP ONE (20:37)
[2016-11-16] MEDS: HEPARIN SUB-Q SCH (21:27)
--- NOTE | 2016-11-16 22:38 | Consultation ---
REASON FOR CONSULTATION: Dysfunctional G-tube. HISTORY OF PRESENT ILLNESS: The patient is a 66-year-old woman who has been a residential resident for 2 years as a result of a CVA with left-sided hemiparesis. She was referred to the Emergency Room for dysfunctional G-tube. Apparently, it was cut short at [facility] and they were unable to flush the feeding tube and therefore the patient was brought to the Emergency Room. Here, a CT scan of the abdomen showed the bumper of the G-tube to be in the subcutaneous tissues and no longer in the gastric lumen. The CT also showed multiple new lesions in the liver that are hypodense and were not present in 02/2016. Because of the G-tube issue, we were consulted. I went up to the floor and was able to pull out the G-tube and noted that only 2.5 cm of tubing existed on the G-tube and the patient is obese. I attempted to reinsert an 18-[place] replacement G-tube which could not be advanced. Therefore, consultation is being done for this as well as the liver lesions. The patient is awake and alert and her son is in the room. There is no known history of malignancy. The patient denies any abdominal pain, nausea, or vomiting. She does have end-stage renal disease and has been on hemodialysis for the last 1 year. There have been no problems with feeding, bowel habits, or unexplained weight loss. The patient has been in and out of the hospital 3 times thus far this year with infections due to Port-A-Cath infections versus sacral decubitus infections, and C. diff diarrhea in 07/2016. This time around, there have been no fevers, chills, sweats, nausea, or vomiting. There has been no diarrhea. ALLERGIES: She is allergic to iodine. MEDICATIONS: Current hospital medications were reviewed and she is on Zosyn. At home, she is on Keppra, Apresoline, amlodipine, for the G-tube, Ativan p.r.n., insulin, Pepcid, Cymbalta, cholestyramine, and 325 mg aspirin. PAST MEDICAL HISTORY: She has a history of: 1. Right hemispheric CVA with left hemiplegia -- 2 years ago. 2. End-stage renal disease -- on dialysis. 3. Sacral decubiti. 4. Chronic indwelling [place]. 5. History of C. diff. 6. History of a recurrent infection and sepsis. FAMILY HISTORY: Noncontributory. SOCIAL HISTORY: She lives in a residential for the last 2 years. There is no tobacco or ethanol history currently. REVIEW OF SYSTEMS: As per above. There is no chest pain or shortness of breath. PHYSICAL EXAMINATION: GENERAL: This is a morbidly obese, middle-aged black female lying in bed in no apparent distress. VITAL SIGNS: Temperature is 98.3, pulse 88, blood pressure is . HEENT: She is anicteric. Pupils are round and reactive. Oropharynx is clear. NECK: Examination reveals left IJ Port-A-Cath insertion. LUNGS: Clear anteriorly bilaterally. CARDIOVASCULAR: Regular with no extra heart sounds. ABDOMEN: Soft and obese. G-tube site is consistent with a recent G-tube removal by myself. There is no fluctuance or expressible pus or warmth or erythema. EXTREMITIES: Show dried ulcers that are dressed on both of her lower extremities. There is no edema. LABORATORY DATA: White count is 10.3, hemoglobin 8.7, hematocrit 27.5, MCV of 95, platelet count of 355,000. Sodium 135, potassium 3.9, chloride 98, bicarbonate 25, BUN 32, creatinine 2.1, glucose is 83, AST is 11, ALT is less than 5, alkaline phosphatase is 137, total bilirubin is 0.4, albumin is 2.5. CT shows multiple lesions in the liver that are hypodense and were not present in 2016. The largest of these measures 5.1 x 7.6 cm. She also has a left ovarian dermoid or teratoma. IMPRESSION: 1. G-tube dislodgement -- G-tube was in the subcutaneous tissues and could not be readily replaced percutaneously. She will need endoscopic replacement of G-tube. I would defer that for several days to allow the current site to heal properly. 2. Multiple liver lesions -- etiology unclear. These could well represent infection or metastatic disease. The patient has had numerous infections and sepsis recently. However, currently, she is afebrile and has a normal white blood cell count. CT-guided evaluation would be appropriate as there is no indication of liver disease based on normal LFTs and no history. RECOMMENDATIONS: 1. Replacement of G-tube in several days. 2. Liver biopsy to assess lesions. [facility]# [id number] HRC/NTS
[2016-11-16] MEDS ORDERED: D5NS 1,000 ML IV SCH (23:45)
[2016-11-17] MEDS: ZOSYN/NS 2.25 GM/50ML 2.25 GM/50 ML BAG IV SCH ×3 (05:25→23:15)
[2016-11-17] MEDS: HEPARIN SUB-Q SCH ×3 (05:31→23:16)
[2016-11-17] MEDS: NOVOLOG SUB-Q SCH ×4 (07:58→23:39)
[2016-11-17] MEDS: LEVEMIR SUB-Q SCH ×2 (07:59→23:39)
[2016-11-17 08:26] LABS: BUN/Creatinine Ratio 13.57; Calcium 9.1 mg/dL (8.4-10.2); Chloride 97.2 mmol/L (98-107); Potassium 3.7 mmol/L (3.6-5.0)
[2016-11-17] MEDS: APRESOLINE FEEDTUBE SCH ×2 (09:42→17:18)
[2016-11-17] MEDS ORDERED: NACL 0.9% 100 ML IV PRN (10:57)
--- NOTE | 2016-11-17 10:58 | Progress Note ---
Subjective Interval history: patient was seen today Note has been dictated We'll continue to follow and make recommendation Judicious ultrafiltration with hemodialysis Objective - Vital Signs Vital signs: Vital Signs - 12hr 11/17/16 11/17/16 00:00 08:10 Temperature 99.4 F 98.1 F Pulse Rate [ 104 H 97 H Left Radial] Respiratory 20 20 Rate Blood Pressure 133/61 138/64 [Left Arm] O2 Sat by Pulse 96 100 Oximetry - Lab 11/16/16 06:18 11/17/16 07:27 Most recent lab results Calcium 9.1 mg/dL (8.4-10.2) 11/17/16 07:27
[2016-11-17] MEDS ORDERED: NACL 0.9 (PRIMING MACHINE ONLY DIALYSIS) MC ONE (11:53)
--- NOTE | 2016-11-17 12:16 | Gastroenterology Progress Note ---
Assessment and Plan 1. GI: pt s/p peg removal and will need new placement - possible peg placement Saturday - no changes 2. Liver: liver lesion, ?infectious vs malignant vs other - Ca markers - ct bx next week - will follow Subjective Date of service: 11/17/16 Interval history: - pt without problems overnight per staff Objective - Constitutional Vitals: Temp Pulse Resp BP Pulse Ox 98.1 F 97 H 20 138/64 100 11/17/16 08:10 11/17/16 08:10 11/17/16 08:10 11/17/16 08:10 11/17/16 08:10 General appearance: no acute distress - EENT Eyes: PERRL - Respiratory Respiratory: bilateral: CTA - Cardiovascular Rhythm: regular Heart Sounds: Present: S1 & S2 - Gastrointestinal General gastrointestinal: Present: soft, non-tender - Labs CBC & Chem 7: 11/16/16 06:18 11/17/16 07:27 Labs: Laboratory Results - last 24 hr 11/16/16 11/16/16 11/16/16 11:57 17:23 21:21 Sodium Potassium Chloride Carbon Dioxide Anion Gap BUN Creatinine Estimated GFR BUN/Creatinine Ratio Glucose POC Glucose 105 97 76 Calcium 11/17/16 07:27 Sodium 135 L Potassium 3.7 Chloride 97.2 L Carbon Dioxide 25 Anion Gap 17 BUN 38 H Creatinine 2.8 H Estimated GFR 21 BUN/Creatinine Ratio 13.57 Glucose 78 POC Glucose Calcium 9.1
[2016-11-17] MEDS: CYMBALTA FEEDTUBE SCH (14:03)
[2016-11-17] MEDS: ECOTRIN PO SCH (14:03)
[2016-11-17] MEDS: Centrum Liq FEEDTUBE SCH (14:03)
[2016-11-17] MEDS: KEPPRA PO SCH (14:03)
[2016-11-17] MEDS: LOPRESSOR PO SCH (14:04)
[2016-11-17] MEDS: QUESTRAN PO SCH (14:04)
[2016-11-17] MEDS: SENOKOT FEEDTUBE SCH (14:04)
[2016-11-17] MEDS: NORVASC FEEDTUBE SCH (14:04)
[2016-11-17] MEDS: PEPCID PO SCH (14:04)
[2016-11-17] MEDS: VITAMIN C FEEDTUBE SCH (14:04)
[2016-11-17] MEDS: HEPARIN IV PRN (14:38)
--- NOTE | 2016-11-17 16:10 | Progress Note ---
Assessment and Plan Assessment and plan: Dislodged gastrostomy tube - Needs replacement of Peg tube. - GI consulted and likely to have the procedure next week - cont on dobhoff for tube feeding Mass of multiple sites of liver - Abscesses versus Mets. Not visualized in February 2016. - Will cont treat as septic emboli with Zosyn. - follow blood cx - Bone scan for possible metastases - CT guided liver biopsy next week CVA (cerebral vascular accident) - cont Supp care HTN (hypertension) - Cont antihypertensives and adjust meds as necessary ESRD (end stage renal disease) - Needs HD, nephro consulted IDDM (insulin dependent diabetes mellitus) - Cont Insulin and coverage with tube feeding Pressure ulcer - present on Rt Ankle heel and sacrum -Wound care History Interval history: Patient seen and examined. Medical records and medication list reviewed. No acute event overnight noted by the RN. Patient denies any chest pain or difficulty breathing. getting HD now Status post removal of old PEG tube on 11/16/16, GI was unable to put a new one. Discussed plan of care at bedside with patient. Hospitalist Physical - Physical exam Narrative exam: GENERAL: elderly AAF lying on bed appeared to be in no discomfort. HEENT: Normocephalic. Atraumatic. No conjunctival congestion or icterus. Patient has moist mucous membranes. NECK: Supple. Trachea midline. CHEST/LUNGS: Clear to auscultated bilaterally, breathing nonlabored. No wheezes crackles or rhonchi. HEART/CARDIOVASCULAR: Regular in rate and rhythm. S1 and S2 positive. ABDOMEN: Abdomen is soft, nontender. Patient has normal bowel sounds. wound dressing on place on the middle of abdomen SKIN: There is no rash. Warm and dry. NEURO: Follows command. EXTRIMITY: No edema PSYCH: Cooperative. - Constitutional Vitals: Temp Pulse Resp BP Pulse Ox 98.0 F 98 H 18 118/56 100 11/17/16 11:35 11/17/16 14:45 11/17/16 11:35 11/17/16 14:45 11/17/16 08:10 General appearance: Present: no acute distress, well-nourished Results - Labs CBC & Chem 7: 11/16/16 06:18 11/17/16 07:27 Labs: Laboratory Last Values WBC 10.3 K/mm3 (4.5-11.0) 11/16/16 06:18 RBC 2.89 M/mm3 (3.65-5.03) L 11/16/16 06:18 Hgb 8.7 gm/dl (10.1-14.3) L 11/16/16 06:18 Hct 27.5 % (30.3-42.9) L 11/16/16 06:18 MCV 95 fl (79-97) 11/16/16 06:18 MCH 30 pg (28-32) 11/16/16 06:18 MCHC 32 % (30-34) 11/16/16 06:18 RDW 17.2 % (13.2-15.2) H 11/16/16 06:18 Plt Count 355 K/mm3 (140-440) 11/16/16 06:18 Lymph % (Auto) 29.6 % (13.4-35.0) 11/16/16 06:18 [place] % (Auto) 9.3 % (0.0-7.3) H 11/16/16 06:18 Eos % (Auto) 4.1 % (0.0-4.3) 11/16/16 06:18 Baso % (Auto) 0.7 % (0.0-1.8) 11/16/16 06:18 Lymph # 3.0 K/mm3 (1.2-5.4) 11/16/16 06:18 [place] # 1.0 K/mm3 (0.0-0.8) H 11/16/16 06:18 Eos # 0.4 K/mm3 (0.0-0.4) 11/16/16 06:18 Baso # 0.1 K/mm3 (0.0-0.1) 11/16/16 06:18 Seg Neutrophils % 56.3 % (40.0-70.0) 11/16/16 06:18 Seg Neutrophils # 5.8 K/mm3 (1.8-7.7) 11/16/16 06:18 Sodium 135 mmol/L (137-145) L 11/17/16 07:27 Potassium 3.7 mmol/L (3.6-5.0) 11/17/16 07:27 Chloride 97.2 mmol/L (98-107) L 11/17/16 07:27 Carbon Dioxide 25 mmol/L (22-30) 11/17/16 07:27 Anion Gap 17 mmol/L 11/17/16 07:27 BUN 38 mg/dL (7-17) H 11/17/16 07:27 Creatinine 2.8 mg/dL (0.7-1.2) H 11/17/16 07:27 Estimated GFR 21 ml/min 11/17/16 07:27 BUN/Creatinine Ratio 13.57 % 11/17/16 07:27 Glucose 78 mg/dL (65-100) 11/17/16 07:27 POC Glucose 76 (70-105) 11/16/16 21:21 Calcium 9.1 mg/dL (8.4-10.2) 11/17/16 07:27 Total Bilirubin 0.4 mg/dL (0.1-1.2) 11/16/16 06:18 AST 11 units/L (5-40) 11/16/16 06:18 ALT < 5 units/L (7-56) L 11/16/16 06:18 Alkaline Phosphatase 137 units/L (35-129) H 11/16/16 06:18 Total Protein 7.4 g/dL (6.3-8.2) 11/16/16 06:18 Albumin 2.5 g/dL (3.9-5) L 11/16/16 06:18 Albumin/Globulin Ratio 0.5 % 11/16/16 06:18
--- NOTE | 2016-11-17 20:22 | XRay Report ---
FINAL REPORT PROCEDURE: XR ABDOMEN 1V AP TECHNIQUE: Abdominal radiograph, single supine AP view. HISTORY: dobhoff placement COMPARISON: No prior studies are available for comparison. FINDINGS: Bowel gas pattern:Nonobstructive. Masses or calcifications:None. Bony structures:No significant abnormality. Other:Dobhoff tube is coiled in the stomach.. IMPRESSION: Doppler off tube is in the stomach. There is no acute bowel abnormality.
--- NOTE | 2016-11-17 23:16 | XRay Report ---
FINAL REPORT PROCEDURE: XR ABDOMEN 1V AP TECHNIQUE: Abdominal radiograph, single supine AP view. HISTORY: to confirm placement of dobhoff feeding tube. COMPARISON: No prior studies are available for comparison. FINDINGS: Bowel gas pattern:Nonobstructive. Masses or calcifications:None. Bony structures:No significant abnormality. Other:NG tube is in the stomach.. IMPRESSION: No acute abnormality. There is an NG tube in the stomach.
[2016-11-18] MEDS: APRESOLINE FEEDTUBE SCH ×4 (00:34→20:57)
[2016-11-18] MEDS: LOPRESSOR PO SCH ×3 (00:34→21:17)
[2016-11-18] MEDS: VITAMIN C FEEDTUBE SCH ×3 (00:35→21:15)
[2016-11-18] MEDS: KEPPRA PO SCH ×3 (00:35→21:14)
[2016-11-18] MEDS: HEPARIN SUB-Q SCH ×3 (06:30→21:19)
[2016-11-18] MEDS: ZOSYN/NS 2.25 GM/50ML 2.25 GM/50 ML BAG IV SCH ×3 (06:45→21:15)
[2016-11-18] MEDS: NOVOLOG SUB-Q SCH ×4 (08:15→22:45)
[2016-11-18] MEDS: LEVEMIR SUB-Q SCH ×2 (08:17→22:05)
--- NOTE | 2016-11-18 10:36 | Progress Note ---
Assessment and Plan End-stage renal disease patient is currently in maintenance dialysis on Saturday schedule Her current dialysis access is a permacath Patient admitted with malfunctioning feeding tube workup revealed multiple spots on liver possibility of metastatic disease is being ruled out Anemia and end-stage renal disease to monitor Secondary hyperparathyroidism to follow Judicious ultrafiltration with hemodialysis Patient appears to be encephalopathic since admission, oftentimes disoriented and confused, Leukocytosis currently normalized to follow Hypokalemia clinically doing better current progression 2.7 use higher potassium with dialysis bath Calcium is between 8.69.1 range We'll continue to follow and make recommendation from renal standpoint Subjective Interval history: Patient was seen today for follow-up she seems to be doing about the same no acute distress remains confused since the day of admission. Events of 24 hours vitals labs intake output medications were reviewed Objective - Vital Signs Vital signs: Vital Signs - 12hr 11/18/16 11/18/16 11/18/16 00:17 01:34 08:20 Temperature 97.9 F 98.8 F Pulse Rate [ 97 H Right Radial] Respiratory 18 20 22 Rate Blood Pressure 179/73 [Left Arm] Blood Pressure 146/61 [Right Arm] O2 Sat by Pulse 97 97 Oximetry - General Appearance General appearance: appears stated age EENT: mucous membranes moist Neck: no JVD Respiratory: Present: Clear to Ascultation (no rales or wheezes ) Cardiology: regular Gastrointestinal: other (nontender abdomen) Neurologic: other (alert awake confused) - Lab 11/16/16 06:18 11/17/16 07:27 Most recent lab results Calcium 9.1 mg/dL (8.4-10.2) 11/17/16 07:27
--- NOTE | 2016-11-18 11:48 | Gastroenterology Progress Note ---
Assessment and Plan 1. Liver: liver masses unclear etiology - cancer markers pending - for liver bx in am - further rec based on results 2. GI: for peg replacement later in week - will follow Subjective Date of service: 11/18/16 Interval history: - no changes overnight Objective - Constitutional Vitals: Temp Pulse Resp BP Pulse Ox 98.8 F 97 H 22 146/61 97 11/18/16 08:20 11/18/16 08:20 11/18/16 08:20 11/18/16 08:20 11/18/16 08:20 General appearance: no acute distress - Respiratory Respiratory: bilateral: CTA - Cardiovascular Rhythm: regular Heart Sounds: Present: S1 & S2 - Gastrointestinal General gastrointestinal: Present: soft, non-tender - Labs CBC & Chem 7: 11/16/16 06:18 11/17/16 07:27 Labs: Laboratory Results - last 24 hr 11/17/16 11/18/16 22:40 06:00 POC Glucose 114 H 112 H
[2016-11-18] MEDS: QUESTRAN PO SCH (13:19)
[2016-11-18] MEDS: ECOTRIN PO SCH (13:19)
[2016-11-18] MEDS: CYMBALTA FEEDTUBE SCH (13:19)
[2016-11-18] MEDS: NORVASC FEEDTUBE SCH (13:21)
[2016-11-18] MEDS: PEPCID PO SCH (13:21)
[2016-11-18] MEDS: Centrum Liq FEEDTUBE SCH (13:59)
[2016-11-18] MEDS: SENOKOT FEEDTUBE SCH (14:00)
--- NOTE | 2016-11-18 16:08 | Progress Note ---
Assessment and Plan Assessment and plan: 66 y/o female with multiple medical problems including ESRD HTN DM and decub ulcers sent from [facility] for G tube malfunction. Her Ct abdomen on admission showed hepatic lesion, concern for malignancy. Planned to have CT guided biopsy on saturday. Old g tube was removed on 11/16 but new one not placed yet. GI waiting on liver Biopsy. Dislodged gastrostomy tube - Needs replacement of Peg tube. - GI consulted and likely to have the procedure next week - cont on dobhoff for tube feeding Mass of multiple sites of liver - Abscesses versus Mets. Not visualized in CT abdomen February 2016. - Will cont treat as septic emboli with Zosyn. - follow blood cx - May need Bone scan for possible metastases - CT guided liver biopsy tomorrow - CEA, CA 19, CA125 pending CVA (cerebral vascular accident) - cont Supp care HTN (hypertension) - Cont antihypertensives and adjust meds as necessary ESRD (end stage renal disease) - Needs HD, nephro consulted IDDM (insulin dependent diabetes mellitus) - Cont Insulin and coverage with tube feeding Pressure ulcer - present on Rt Ankle heel and sacrum -Wound care History Interval history: Patient seen and examined. Medical records and medication list reviewed. No acute event overnight noted by the RN. Status post removal of old PEG tube on 11/16/16, GI was unable to put a new one. placed on dobhoff for tube feeding Discussed plan of care at bedside with patient. Hospitalist Physical - Physical exam Narrative exam: GENERAL: elderly AAF lying on bed appeared to be in no discomfort. HEENT: Normocephalic. Atraumatic. No conjunctival congestion or icterus. Patient has moist mucous membranes. dobhoff on place NECK: Supple. Trachea midline. CHEST/LUNGS: Clear to auscultated bilaterally, breathing nonlabored. No wheezes crackles or rhonchi. HEART/CARDIOVASCULAR: Regular in rate and rhythm. S1 and S2 positive. ABDOMEN: Abdomen is soft, nontender. Patient has normal bowel sounds. wound dressing on place on the middle of abdomen SKIN: There is no rash. Warm and dry. NEURO: Follows command. EXTRIMITY: No edema, rt foot with wound dressing PSYCH: Cooperative. - Constitutional Vitals: Temp Pulse Resp BP Pulse Ox 98.6 F 84 18 134/69 96 11/18/16 15:33 11/18/16 15:33 11/18/16 15:33 11/18/16 15:33 11/18/16 15:33 General appearance: Present: no acute distress, well-nourished Results - Labs CBC & Chem 7: 11/16/16 06:18 11/17/16 07:27 Labs: Laboratory Last Values WBC 10.3 K/mm3 (4.5-11.0) 11/16/16 06:18 RBC 2.89 M/mm3 (3.65-5.03) L 11/16/16 06:18 Hgb 8.7 gm/dl (10.1-14.3) L 11/16/16 06:18 Hct 27.5 % (30.3-42.9) L 11/16/16 06:18 MCV 95 fl (79-97) 11/16/16 06:18 MCH 30 pg (28-32) 11/16/16 06:18 MCHC 32 % (30-34) 11/16/16 06:18 RDW 17.2 % (13.2-15.2) H 11/16/16 06:18 Plt Count 355 K/mm3 (140-440) 11/16/16 06:18 Lymph % (Auto) 29.6 % (13.4-35.0) 11/16/16 06:18 Lane % (Auto) 9.3 % (0.0-7.3) H 11/16/16 06:18 Eos % (Auto) 4.1 % (0.0-4.3) 11/16/16 06:18 Baso % (Auto) 0.7 % (0.0-1.8) 11/16/16 06:18 Lymph # 3.0 K/mm3 (1.2-5.4) 11/16/16 06:18 Lane # 1.0 K/mm3 (0.0-0.8) H 11/16/16 06:18 Eos # 0.4 K/mm3 (0.0-0.4) 11/16/16 06:18 Baso # 0.1 K/mm3 (0.0-0.1) 11/16/16 06:18 Seg Neutrophils % 56.3 % (40.0-70.0) 11/16/16 06:18 Seg Neutrophils # 5.8 K/mm3 (1.8-7.7) 11/16/16 06:18 Sodium 135 mmol/L (137-145) L 11/17/16 07:27 Potassium 3.7 mmol/L (3.6-5.0) 11/17/16 07:27 Chloride 97.2 mmol/L (98-107) L 11/17/16 07:27 Carbon Dioxide 25 mmol/L (22-30) 11/17/16 07:27 Anion Gap 17 mmol/L 11/17/16 07:27 BUN 38 mg/dL (7-17) H 11/17/16 07:27 Creatinine 2.8 mg/dL (0.7-1.2) H 11/17/16 07:27 Estimated GFR 21 ml/min 11/17/16 07:27 BUN/Creatinine Ratio 13.57 % 11/17/16 07:27 Glucose 78 mg/dL (65-100) 11/17/16 07:27 POC Glucose 107 (70-105) H 11/18/16 11:26 Calcium 9.1 mg/dL (8.4-10.2) 11/17/16 07:27 Total Bilirubin 0.4 mg/dL (0.1-1.2) 11/16/16 06:18 AST 11 units/L (5-40) 11/16/16 06:18 ALT < 5 units/L (7-56) L 11/16/16 06:18 Alkaline Phosphatase 137 units/L (35-129) H 11/16/16 06:18 Total Protein 7.4 g/dL (6.3-8.2) 11/16/16 06:18 Albumin 2.5 g/dL (3.9-5) L 11/16/16 06:18 Albumin/Globulin Ratio 0.5 % 11/16/16 06:18
[2016-11-18] MEDS: AMBIEN PO PRN (21:15)
[2016-11-19] MEDS: ZOSYN/NS 2.25 GM/50ML 2.25 GM/50 ML BAG IV SCH ×3 (06:43→23:44)
[2016-11-19] MEDS: LEVEMIR SUB-Q SCH ×2 (08:00→23:36)
[2016-11-19] MEDS: NOVOLOG SUB-Q SCH ×3 (08:48→23:35)
[2016-11-19 09:27] LABS: INR 1.22 (0.87-1.13); Partial Thromboplastin Time 41.7 Sec. (24.2-36.6)
--- NOTE | 2016-11-19 10:18 | Progress Note ---
Assessment and Plan end-stage renal disease currently in maintenance or dialysis on Saturday and Saturday, patient will continue to dialyze on the current schedule ultrafiltration only as tolerated to keep systolic above 100 Anemia and end-stage renal disease to follow,erythropoietin as needed Encephalopathy in a patient who has had prior history of stroke currently remains unchanged,in my opinion she may benefit from a neurology consultation Noted to have multiple spots in her liver status post biopsy, discussed with dialysis nurse not to give any heparin during dialysis Malnutrition risk is high in dialysis patients she should be on high protein diet preferably 1.5 g protein per KG body weight Patient's mortality risk is high due to multiple comorbidities monitor phosphorus and PTH level periodically feeding tube issue needs to be resolved we'll continue to follow and make recommendation from renal standpoint Subjective Interval history: seen today for follow-up no acute distress remains encephalopathic has a feeding tube through her nose Events of 24 hours vitals labs intake and output medications reviewed Patient is currently being followed by gastroenterology service Objective - Vital Signs Vital signs: Vital Signs - 12hr 11/19/16 11/19/16 00:35 07:00 Temperature 97.9 F 97.6 F Pulse Rate [ 97 H 95 H Right Radial] Respiratory 22 22 Rate Blood Pressure 140/62 123/55 [Right Arm] O2 Sat by Pulse 99 Oximetry - General Appearance General appearance: well-nourished (encephalopathic) EENT: mucous membranes moist Neck: no JVD Respiratory: Present: Clear to Ascultation Cardiology: regular (S1 and S2 normal) Gastrointestinal: normal (soft nontender obese) Neurologic: other (encephalopathic) - Lab 11/19/16 11:05 11/19/16 11:05 Most recent lab results Calcium 9.1 mg/dL (8.4-10.2) 11/17/16 07:27
[2016-11-19] MEDS: VITAMIN C FEEDTUBE SCH ×2 (11:10→23:33)
[2016-11-19] MEDS: PEPCID PO SCH (11:10)
[2016-11-19] MEDS: CYMBALTA FEEDTUBE SCH (11:10)
[2016-11-19] MEDS: QUESTRAN PO SCH (11:10)
[2016-11-19] MEDS: SENOKOT FEEDTUBE SCH (11:11)
[2016-11-19] MEDS: Centrum Liq FEEDTUBE SCH (11:19)
[2016-11-19 11:24] LABS: Basophils % (Auto) 0.5 % (0.0-1.8); Eosinophils % (Auto) 3.8 % (0.0-4.3); Hematocrit 26.7 % (30.3-42.9); Hemoglobin 8.4 gm/dl (10.1-14.3); Mean Corpuscular HGB Conc 32 % (30-34); Mean Corpuscular Hemoglobin 30 pg (28-32); Mean Corpuscular Volume 95 fl (79-97); Platelet Count 359 K/mm3 (140-440); Red Cell Distribution Width 17.1 % (13.2-15.2); White Blood Count 12.2 K/mm3 (4.5-11.0)
[2016-11-19 11:43] LABS: Albumin/Globulin Ratio 0.4 %; Bilirubin,Total 0.3 mg/dL (0.1-1.2); Calcium 8.9 mg/dL (8.4-10.2); Chloride 103.1 mmol/L (98-107); Phosphorous 2.3 mg/dL (2.5-4.5); Potassium 3.7 mmol/L (3.6-5.0); Total Protein 7.2 g/dL (6.3-8.2)
[2016-11-19] MEDS ORDERED: SUBLIMAZE ONE ×2 (13:14→14:34)
[2016-11-19] MEDS ORDERED: VERSED IV ONE ×3 (13:15→14:34)
[2016-11-19] MEDS ORDERED: SUBLIMAZE IV ONE (14:08)
--- NOTE | 2016-11-19 14:29 | Event Note ---
Date: 11/19/16 - pt off floor for liver bx, will follow results - will schedule egd/peg for am - further rec based on progress
--- NOTE | 2016-11-19 14:38 | Progress Note ---
Assessment and Plan Assessment and plan: 66 y/o female with multiple medical problems including ESRD HTN DM and decub ulcers sent from [facility] for G tube malfunction. Her Ct abdomen on admission showed hepatic lesion, concern for malignancy. planned to have CT guided biopsy today. Old g tube was removed on 11/16 but new one not placed yet. GI was waiting on liver Biopsy, plan to put new PEG tomorrow. Dislodged gastrostomy tube - Needs replacement of Peg tube. - GI consulted and likely to have the procedure tomorrow - cont on dobhoff for tube feeding Mass of multiple sites of liver - Abscesses versus Mets. Not visualized in CT abdomen February 2016. - Will cont treat as septic emboli with Zosyn. - follow blood cx - May need Bone scan for possible metastases - CT guided liver biopsy today - CEA, CA 19, CA125 pending CVA (cerebral vascular accident) - cont Supp care - cont aspirin and lipitor HTN (hypertension) - Cont antihypertensives and adjust meds as necessary - on metoprolol, hydralazine and norvasc ESRD (end stage renal disease) - on HD, nephro following IDDM (insulin dependent diabetes mellitus) - Cont Insulin coverage with tube feeding Pressure ulcer - present on Rt Ankle heel and sacrum - Wound care History Interval history: Patient seen and examined. Medical records and medication list reviewed. No acute event overnight noted by the RN. Status post removal of old PEG tube on 11/16/16, GI was unable to put a new one. off tube feeding today, waiting for CT guided liver biopsy Discussed plan of care at bedside with patient. Hospitalist Physical - Physical exam Narrative exam: GENERAL: elderly AAF lying on bed appeared to be in no discomfort. HEENT: Normocephalic. Atraumatic. No conjunctival congestion or icterus. Patient has moist mucous membranes. dobhoff on place NECK: Supple. Trachea midline. CHEST/LUNGS: Clear to auscultated bilaterally, breathing nonlabored. No wheezes crackles or rhonchi. HEART/CARDIOVASCULAR: Regular in rate and rhythm. S1 and S2 positive. ABDOMEN: Abdomen is soft, nontender. Patient has normal bowel sounds. wound dressing on place on the middle of abdomen SKIN: There is no rash. Warm and dry. NEURO: Follows command. EXTRIMITY: No edema, rt foot with wound dressing PSYCH: Cooperative. - Constitutional Vitals: Temp Pulse Resp BP Pulse Ox 97.6 F 108 H 18 143/65 98 11/19/16 07:00 11/19/16 14:30 11/19/16 14:30 11/19/16 14:30 11/19/16 14:30 General appearance: Present: no acute distress, well-nourished Results - Labs CBC & Chem 7: 11/19/16 11:05 11/19/16 11:05 Labs: Laboratory Last Values WBC 12.2 K/mm3 (4.5-11.0) H 11/19/16 11:05 RBC 2.80 M/mm3 (3.65-5.03) L 11/19/16 11:05 Hgb 8.4 gm/dl (10.1-14.3) L 11/19/16 11:05 Hct 26.7 % (30.3-42.9) L 11/19/16 11:05 MCV 95 fl (79-97) 11/19/16 11:05 MCH 30 pg (28-32) 11/19/16 11:05 MCHC 32 % (30-34) 11/19/16 11:05 RDW 17.1 % (13.2-15.2) H 11/19/16 11:05 Plt Count 359 K/mm3 (140-440) 11/19/16 11:05 Lymph % (Auto) 25.0 % (13.4-35.0) 11/19/16 11:05 [place] % (Auto) 8.7 % (0.0-7.3) H 11/19/16 11:05 Eos % (Auto) 3.8 % (0.0-4.3) 11/19/16 11:05 Baso % (Auto) 0.5 % (0.0-1.8) 11/19/16 11:05 Lymph # 3.0 K/mm3 (1.2-5.4) 11/19/16 11:05 [place] # 1.1 K/mm3 (0.0-0.8) H 11/19/16 11:05 Eos # 0.5 K/mm3 (0.0-0.4) H 11/19/16 11:05 Baso # 0.1 K/mm3 (0.0-0.1) 11/19/16 11:05 Seg Neutrophils % 62.0 % (40.0-70.0) 11/19/16 11:05 Seg Neutrophils # 7.5 K/mm3 (1.8-7.7) 11/19/16 11:05 PT 15.3 Sec. (12.2-14.9) H 11/19/16 08:57 INR 1.22 (0.87-1.13) H 11/19/16 08:57 APTT 41.7 Sec. (24.2-36.6) H 11/19/16 08:57 Sodium 140 mmol/L (137-145) 11/19/16 11:05 Potassium 3.7 mmol/L (3.6-5.0) 11/19/16 11:05 Chloride 103.1 mmol/L (98-107) 11/19/16 11:05 Carbon Dioxide 24 mmol/L (22-30) 11/19/16 11:05 Anion Gap 17 mmol/L 11/19/16 11:05 BUN 26 mg/dL (7-17) H 11/19/16 11:05 Creatinine 2.6 mg/dL (0.7-1.2) H 11/19/16 11:05 Estimated GFR 22 ml/min 11/19/16 11:05 BUN/Creatinine Ratio 10.00 % 11/19/16 11:05 Glucose 96 mg/dL (65-100) 11/19/16 11:05 POC Glucose 156 (70-105) H 11/19/16 05:57 Calcium 8.9 mg/dL (8.4-10.2) 11/19/16 11:05 Phosphorus 2.3 mg/dL (2.5-4.5) L 11/19/16 11:05 Total Bilirubin 0.3 mg/dL (0.1-1.2) 11/19/16 11:05 AST 19 units/L (5-40) 11/19/16 11:05 ALT 6 units/L (7-56) L 11/19/16 11:05 Alkaline Phosphatase 147 units/L (35-129) H 11/19/16 11:05 Total Protein 7.2 g/dL (6.3-8.2) 11/19/16 11:05 Albumin 2.0 g/dL (3.9-5) L 11/19/16 11:05 Albumin/Globulin Ratio 0.4 % 11/19/16 11:05
--- NOTE | 2016-11-19 15:16 | Procedure Note ---
Date of procedure: 11/19/16 Pre-op diagnosis: Liver lesions Post-op diagnosis: other Procedure: Drainageof liver abscess Anesthesia: local Surgeon: NYDIA ALEMAN Estimated blood loss: none Specimen disposition: to lab Condition: stable Disposition: floor
--- NOTE | 2016-11-19 15:21 | Cat Scan Report ---
CT-guided liver biopsy and percutaneous drainage of liver abscess. Procedure: After survey examination, the patient's anterior abdominal skin surface was prepped and draped using sterile technique. Local anesthetic was injected into the skin. Using CT guidance, a 17-gauge sheath needle was advanced into a hypodense mass in the anterior aspect of the left lobe of the liver. Several cc of purulent fluid was aspirated. Since there are multiple hypodense lesions in the liver, I decided to drain the largest collection in the right lobe of the liver. The patient's skin surface was reprepped along the lateral abdominal wall. Local anesthetic was injected into the skin. Using CT guidance, a 10 [place] pigtail catheter was inserted into the fluid collection. Approximately 150 cc of foul-smelling purulent fluid was aspirated and sent for appropriate culture and sensitivities. Intravenous conscious sedation was used. Independent cardiorespiratory monitoring was performed by the outpatient procedure nurse for 45 minutes, supervised by me. The patient's vital signs at the end of the procedure were stable. The catheter was secured to the skin surface, and the patient was sent to the floor in satisfactory condition. I telephoned the patient's referring physician Dr. Thomas at the end of this procedure to advise him of these findings.
[2016-11-19] MEDS: APRESOLINE FEEDTUBE SCH ×3 (16:02→19:51)
[2016-11-19] MEDS: KEPPRA PO SCH (16:02)
[2016-11-19] MEDS: LOPRESSOR PO SCH (16:03)
[2016-11-19] MEDS: NORVASC FEEDTUBE SCH (19:51)
[2016-11-20] MEDS: KEPPRA PO SCH ×2 (00:01→10:00)
[2016-11-20] MEDS: LOPRESSOR PO SCH ×2 (00:06→10:00)
[2016-11-20] MEDS: TYLENOL FEEDTUBE PRN ×2 (03:30→21:46)
[2016-11-20] MEDS: ZOSYN/NS 2.25 GM/50ML 2.25 GM/50 ML BAG IV SCH ×3 (07:04→23:57)
[2016-11-20] MEDS: NOVOLOG SUB-Q SCH ×4 (07:30→22:54)
[2016-11-20] MEDS: APRESOLINE FEEDTUBE SCH ×2 (08:00→14:00)
[2016-11-20] MEDS: LEVEMIR SUB-Q SCH ×2 (08:00→23:57)
--- NOTE | 2016-11-20 09:45 | Progress Note ---
Assessment and Plan end-stage renal disease currently in maintenance or dialysis on Saturday and Saturday Anemia and end-stage renal disease to follow Encephalopathy in a patient who has had prior history of stroke currently remains unchanged Noted to have multiple spots in her liver status post biopsy, discussed with dialysis nurse not to give any heparin during dialysis Malnutrition risk is high in dialysis patients she should be on high protein diet preferably 1.5 g protein per KG body weight Patient's mortality risk is high due to multiple comorbidities monitor phosphorus and PTH level periodically feeding tube issue needs to be resolved Objective - Vital Signs Vital signs: Vital Signs - 12hr 11/19/16 11/19/16 11/20/16 22:00 23:00 00:06 Temperature 101.1 F H Pulse Rate 104 H Pulse Rate [ 111 H Right Radial] Respiratory 24 22 Rate Blood Pressure 102/52 Blood Pressure 108/53 [Right Arm] O2 Sat by Pulse 95 95 Oximetry 11/20/16 11/20/16 11/20/16 03:32 08:40 09:17 Temperature 99.4 F 98.8 F Pulse Rate Pulse Rate [ 92 H Right Radial] Respiratory 20 Rate Blood Pressure Blood Pressure 128/61 [Right Arm] O2 Sat by Pulse 95 Oximetry - General Appearance General appearance: well-developed (encephalopathic) EENT: mucous membranes moist Neck: no JVD Respiratory: Present: Clear to Ascultation (no crackles or also wheezes) Cardiology: regular (S1 and S2 normal) Gastrointestinal: normal ( soft nontender obeseLimited examination) Neurologic: other (arousable encephalopathic) - Lab 11/19/16 11:05 11/19/16 11:05 Most recent lab results Calcium 8.9 mg/dL (8.4-10.2) 11/19/16 11:05 Phosphorus 2.3 mg/dL (2.5-4.5) L 11/19/16 11:05
[2016-11-20] MEDS: Centrum Liq FEEDTUBE SCH (10:00)
[2016-11-20] MEDS: NORVASC FEEDTUBE SCH (10:00)
[2016-11-20] MEDS: CYMBALTA FEEDTUBE SCH (10:00)
[2016-11-20] MEDS: PEPCID PO SCH (10:00)
[2016-11-20] MEDS ORDERED: HEPARIN ONE (13:25)
--- NOTE | 2016-11-20 14:44 | Progress Note ---
Assessment and Plan Assessment and plan: Patient is a 66 y/o woman with multiple medical problems including ESRD, HTN, DM and decub ulcers sent from [facility] for G tube malfunction. Her Ct abdomen on admission showed hepatic lesion, concern for malignancy, CT guided liver biopsy done Saturday,11/19/16. The Old g tube was removed on 11/16 but new one not placed yet. PEG pending Dislodged gastrostomy tube - Needs replacement of Peg tube. - GI consulted and likely to have the procedure tomorrow - cont on dobhoff for tube feeding Mass of multiple sites of liver - Abscesses versus Mets. Not visualized in CT abdomen February 2016. - Will cont treat as septic emboli with Zosyn. - follow blood cx - May need Bone scan for possible metastases - CT guided liver biopsy today - CEA, CA 19, CA125 pending CVA (cerebral vascular accident) - cont Supp care - cont aspirin and lipitor HTN (hypertension) - Cont antihypertensives and adjust meds as necessary - on metoprolol, hydralazine and norvasc ESRD (end stage renal disease) - on HD, nephro following IDDM (insulin dependent diabetes mellitus) - Cont Insulin coverage with tube feeding Pressure ulcer, poa - present on Rt Ankle heel and sacrum - Wound care Liver biopsy done, follow results. PEG today History Interval history: Patient seen and examined. Follow up on PEG tube malfunction. Overnight uneventful. No cp, sob, n/v or severe headaches. Imaging, old records, testing, labs, nursing notes reviewed. Hospitalist Physical - Physical exam Narrative exam: GEN: Chronically debilitated NAD, AWAKE, ALERT, ORIENTATED 1 CVS: RRR, NORMAL S1S2 LUNGS/CHEST: CTA B, NORMAL CHEST EXPANSION B, GOOD AIR ENTRY B ABD: SOFT NTND, GBS, NO REBOUND OR GUARDING NEURO: CN 2-12 GROSSLY INTACT, NO new FOCAL DEFICITS PSY: CALM - Constitutional Vitals: Temp Pulse Resp BP Pulse Ox 98.8 F 100 H 20 98/53 95 11/20/16 10:30 11/20/16 13:54 11/20/16 10:30 11/20/16 14:00 11/20/16 09:17 General appearance: Present: no acute distress Results - Labs CBC & Chem 7: 11/19/16 11:05 11/19/16 11:05 Labs: Laboratory Last Values WBC 12.2 K/mm3 (4.5-11.0) H 11/19/16 11:05 RBC 2.80 M/mm3 (3.65-5.03) L 11/19/16 11:05 Hgb 8.4 gm/dl (10.1-14.3) L 11/19/16 11:05 Hct 26.7 % (30.3-42.9) L 11/19/16 11:05 MCV 95 fl (79-97) 11/19/16 11:05 MCH 30 pg (28-32) 11/19/16 11:05 MCHC 32 % (30-34) 11/19/16 11:05 RDW 17.1 % (13.2-15.2) H 11/19/16 11:05 Plt Count 359 K/mm3 (140-440) 11/19/16 11:05 Lymph % (Auto) 25.0 % (13.4-35.0) 11/19/16 11:05 [place] % (Auto) 8.7 % (0.0-7.3) H 11/19/16 11:05 Eos % (Auto) 3.8 % (0.0-4.3) 11/19/16 11:05 Baso % (Auto) 0.5 % (0.0-1.8) 11/19/16 11:05 Lymph # 3.0 K/mm3 (1.2-5.4) 11/19/16 11:05 [place] # 1.1 K/mm3 (0.0-0.8) H 11/19/16 11:05 Eos # 0.5 K/mm3 (0.0-0.4) H 11/19/16 11:05 Baso # 0.1 K/mm3 (0.0-0.1) 11/19/16 11:05 Seg Neutrophils % 62.0 % (40.0-70.0) 11/19/16 11:05 Seg Neutrophils # 7.5 K/mm3 (1.8-7.7) 11/19/16 11:05 PT 15.3 Sec. (12.2-14.9) H 11/19/16 08:57 INR 1.22 (0.87-1.13) H 11/19/16 08:57 APTT 41.7 Sec. (24.2-36.6) H 11/19/16 08:57 Sodium 140 mmol/L (137-145) 11/19/16 11:05 Potassium 3.7 mmol/L (3.6-5.0) 11/19/16 11:05 Chloride 103.1 mmol/L (98-107) 11/19/16 11:05 Carbon Dioxide 24 mmol/L (22-30) 11/19/16 11:05 Anion Gap 17 mmol/L 11/19/16 11:05 BUN 26 mg/dL (7-17) H 11/19/16 11:05 Creatinine 2.6 mg/dL (0.7-1.2) H 11/19/16 11:05 Estimated GFR 22 ml/min 11/19/16 11:05 BUN/Creatinine Ratio 10.00 % 11/19/16 11:05 Glucose 96 mg/dL (65-100) 11/19/16 11:05 POC Glucose 209 (70-105) H 11/20/16 06:27 Calcium 8.9 mg/dL (8.4-10.2) 11/19/16 11:05 Phosphorus 2.3 mg/dL (2.5-4.5) L 11/19/16 11:05 Total Bilirubin 0.3 mg/dL (0.1-1.2) 11/19/16 11:05 AST 19 units/L (5-40) 11/19/16 11:05 ALT 6 units/L (7-56) L 11/19/16 11:05 Alkaline Phosphatase 147 units/L (35-129) H 11/19/16 11:05 Total Protein 7.2 g/dL (6.3-8.2) 11/19/16 11:05 Albumin 2.0 g/dL (3.9-5) L 11/19/16 11:05 Albumin/Globulin Ratio 0.4 % 11/19/16 11:05 PTH Intact 18.53 pg/mL (15-65) 11/19/16 15:53
[2016-11-20] MEDS ORDERED: WATER FOR IRRIG STERILE IR ONE (15:03)
[2016-11-20] MEDS ORDERED: ANCEF/STERILE WATER 2 GM/20 ML 2 GM/20 ML SYRINGE IV NR (16:00)
[2016-11-20] MEDS ORDERED: NACL 0.9% 1000 ML 1,000 ML IV SCH (16:30)
--- NOTE | 2016-11-20 16:31 | Anesthesia Day of Surgery ---
Anesthesia Day of Surgery - Day of Surgery Patient Examined: Yes Patient H&P Reviewed: Yes Patient is NPO: Yes
--- NOTE | 2016-11-20 16:31 | Anesthesia Consultation ---
Anesthesia Consult and Med Hx Date of service: 11/20/16 - Airway ROM Head & Neck: Adequate Mental/Hyoid Distance: Adequate Mallampati Class: Class II Intubation Access Assessment: Probably Good - Pulmonary Exam CTA: Yes - Cardiac Exam Cardiac Exam: RRR - Pre-Operative Health Status ASA Pre-Surgery Classification: ASA4 Proposed Anesthetic Plan: MAC - Pulmonary Hx Smoking: No Hx Asthma: No COPD: No Hx Pneumonia: No - Cardiovascular System Hx Hypertension: Yes Hx Coronary Artery Disease: No Hx Pacemaker: No Hx Internal Defibrillator: No - Central Nervous System CVA: Yes - Endocrine Hx Renal Disease: Yes (left permacath, last dialysis today) Hx End Stage Renal Disease: Yes Hx Insulin Dependent Diabetes: Yes - Hematic Hx Anemia: Yes - Other Systems Hx Cancer: No Hx Obesity: Yes
--- NOTE | 2016-11-20 16:32 | Post Anesthesia Evaluation ---
- Post Anesthesia Evaluation Patient Participated: Yes Airway Patent: Yes Stable Respiratory Function: Yes Nausea/Vomiting: No Temp > 96.8F: Yes Pain Manageable: Yes Adequeate Hydration: Yes Anesthesia Complications: No Block Receding Appropriately: Not Applicable Patient on Ventilator: No
[2016-11-20] MEDS ORDERED: DIPRIVAN 10 MG/ML IV ONE ×2 (17:15)
--- NOTE | 2016-11-20 17:52 | Post Operative Note ---
Pre-op diagnosis: dysphagia Post-op diagnosis: same Findings: EGD: hiatal hernia - old peg noted - ulcer x 2 stomach - 20F pull peg placed, bumper at 3 1/2 cm Procedure: EGD/peg Anesthesia: MAC Surgeon: BLAIRE PAGAN Estimated blood loss: none Pathology: none Condition: stable Disposition: floor
--- NOTE | 2016-11-20 19:33 | Operative Report ---
PROCEDURE: Esophagogastroduodenoscopy with PEG tube placement. INDICATION: 1. PEG replacement. 2. Malfunction PEG. 3. Dysphagia. MEDICATIONS: Propofol per [employer]. COMPLICATIONS: None. DESCRIPTION OF PROCEDURE: The patient brought to procedure suite. The patient had the procedure discussed with her at length. All risks, complications, and benefits discussed after which the patient signed for the procedure to perform. The patient placed in supine position. Mouth block was placed in the patient's oral cavity. After adequate sedation medication as above, endoscope placed in the mouth and brought to the level of the second portion of duodenum. Retroflexion view performed. The patient's vital signs remained stable throughout the procedure. FINDINGS: There was noted to be a medium hiatal hernia at GE junction. The esophagus otherwise appeared to be normal. There are noted to be two wide based ulcers noted in the gastric body. There was an area of previous PEG tube site noted. Otherwise, intact. The duodenum appeared normal. Retroflexion showed no other pathology. After this especially using standard technique and transillumination, area for adequate PEG placement was found. A 20-Kinyarwanda pull PEG was then placed. Bump was noted at 3.5 cm. Post-procedure, the patient was satisfactory. The patient tolerated procedure well. No complications during the procedure. IMPRESSION: 1. Hiatal hernia. 2. Previous PEG site noted intact in the gastric body. 3. Two ulcers in the stomach. 4. Otherwise, normal esophagogastroduodenoscopy. 5. PEG tube placement without obvious complications. RECOMMENDATIONS: 1. Basic PEG tube management, see chart. 2. Watch for signs of bleeding and infection. 3. Nutrition consult. 4. We will follow up in a.m. JOB# [id number] [facility]/NT[facility]
[2016-11-20] MEDS: VITAMIN C FEEDTUBE SCH (21:47)
[2016-11-20] MEDS: DILAUDID IV PRN (23:59)
[2016-11-21] MEDS: LOPRESSOR PO SCH ×3 (00:19→23:29)
[2016-11-21] MEDS: APRESOLINE FEEDTUBE SCH ×4 (00:20→23:29)
[2016-11-21] MEDS: KEPPRA PO SCH ×3 (00:21→23:28)
[2016-11-21] MEDS: ZOSYN/NS 2.25 GM/50ML 2.25 GM/50 ML BAG IV SCH ×3 (06:49→23:26)
[2016-11-21] MEDS ORDERED: NACL 0.9% 1000 ML 1,000 ML ONE (07:18)
--- NOTE | 2016-11-21 08:07 | Progress Note ---
Assessment and Plan End-stage renal disease patient is currently in maintenance hemodialysis on Saturday and Saturday Encephalopathy appears to be somewhat better patient does have history of stroke according to the nurse she was following commands better than yesterday Anemia and end-stage renal disease to monitored erythropoietin with hemodialysis We'll avoid heparin with hemodialysis for now Multiple spots the liver currently being followed by gastroenterology service ? Teratoma of the ovary patient in my opinion will benefit from a SCALLOP BINDER evaluation to make sure she been on dealing with any form of malignancy, also would suggest doing a CA-125 level we'll continue to follow make recommendation from renal standpoint Subjective Interval history: patient is seen today for follow-up on multiple renal related issues she is currently much more alert and awake does follow some commands according to nurse She was dialyze yesterday which was uneventful patient has been noted to have abscess in her liver for which currently she's been followed by gastroenterology service Multiple vertebral markers have been ordered already Objective - Vital Signs Vital signs: Vital Signs - 12hr 11/20/16 11/20/16 11/20/16 21:46 22:00 22:46 Temperature Pulse Rate Pulse Rate [ 104 H Right Radial] Respiratory 20 20 20 Rate Respiratory 20 Rate [sacrum] Blood Pressure Blood Pressure [Right Arm] O2 Sat by Pulse Oximetry 11/20/16 11/20/16 11/21/16 23:00 23:59 00:19 Temperature 99.6 F Pulse Rate 104 H Pulse Rate [ 110 H Right Radial] Respiratory 22 24 Rate Respiratory Rate [sacrum] Blood Pressure 118/68 Blood Pressure 129/62 [Right Arm] O2 Sat by Pulse 96 Oximetry - General Appearance General appearance: appears stated age EENT: mucous membranes moist Neck: no JVD Respiratory: Present: Clear to Ascultation Cardiology: regular Gastrointestinal: normal (nontender) Neurologic: other (arousable and follows some commands) - Lab 11/21/16 10:48 11/21/16 10:48 Most recent lab results Calcium 8.9 mg/dL (8.4-10.2) 11/19/16 11:05 Phosphorus 2.3 mg/dL (2.5-4.5) L 11/19/16 11:05
[2016-11-21] MEDS: QUESTRAN PO SCH (10:06)
[2016-11-21] MEDS: Centrum Liq FEEDTUBE SCH (10:15)
[2016-11-21] MEDS: SENOKOT FEEDTUBE SCH (10:16)
[2016-11-21] MEDS: CYMBALTA FEEDTUBE SCH (10:17)
[2016-11-21] MEDS: VITAMIN C FEEDTUBE SCH ×2 (10:18→23:28)
--- NOTE | 2016-11-21 10:54 | Consultation ---
REASON FOR CONSULTATION: Management of end-stage renal disease in a patient who is currently dialysis dependent. SOURCE OF INFORMATION: From the patient's family at the bedside as well as the current chart. The patient is a very poor historian. She has a history of prior stroke. HISTORY OF PRESENT ILLNESS: The patient is a pleasant 66-year-old -[place] female, who was brought in from the [facility] after her G tube was not working well. The patient is currently dialysis dependent and has multiple comorbidities. 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 PAST MEDICAL HISTORY: Significant for, 1. End-stage renal disease. 2. Hypertension. 3. Diabetes. 4. Obesity. 5. Multiple decubitus ulcers in the right ankle and left heel. 6. History of stroke. CURRENT ALLERGIES: IODINE. HOME MEDICATIONS: Multiple including Dulcolax, Keppra, Tylenol, vitamin C, Benadryl, Cymbalta, Humulin, Ativan, metoprolol, amlodipine, hydralazine, 70/30 insulin, pancrelipase, and famotidine. SURGICAL HISTORY: Significant for PEG tube placement. SOCIAL HISTORY: She is full code, resident of [facility] [place]. REVIEW OF SYSTEMS: Unable to obtain due to altered mental status, prior stroke. PHYSICAL EXAMINATION: HEENT: Normocephalic, atraumatic skull. Extraocular movements could not be assessed well. Oral mucosa is moist. NECK: Supple without thyromegaly. No JVD. CHEST: Essentially clear to auscultation anteriorly and posteriorly. HEART: Regular rate and rhythm. S1, S2 heard. No S3 or S4. ABDOMEN: Soft, nontender. No voluntary guarding, rebound, organomegaly, or masses. G tube is in place. No renal bruits. EXTREMITIES: Examination approximately less than 1+ pretibial ankle edema. Peripheral pulses palpable. No discoloration or cyanosis. NEUROLOGIC: The patient is arousable, but does not answer appropriately, son is at the bedside. LABORATORIES AND X-RAYS: As of this admission, white cell count 13.6, hemoglobin 9.1, hematocrit is 28.4. Her sodium 130, potassium 3.1, chloride 92, bicarbonate 24, BUN 37, creatinine is 1.7, total bilirubin is around 0.4 with an albumin of 2.5. ASSESSMENT AND PLAN: 1. End-stage renal disease, currently on maintenance hemodialysis on Saturday, and Saturday. The patient does not appear to be acutely volume overloaded and can be considered for dialysis tomorrow morning. 2. Anemia on end-stage renal disease, currently hemoglobin is around 8.7, this will need to be monitored erythropoietin possibly with hemodialysis. 3. Hypertension appears to be stable at this time. 4. Mild volume overload. 5. Malfunctioning G-tube. 6. Ovarian ? teratoma, suspicion of metastatic disease to liver, currently being followed by GI as well as primary team. 7. Secondary hyperparathyroidism to follow. 8. Leukocytosis to be monitored. Plan of care discussed with the patient's son at the bedside. At this time, the patient will receive her hemodialysis tomorrow. There is no acute emergent indication. She does have low potassium so will use high k bath during dialysis. 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 The patient does have a history of prior stroke and symptoms above encephalopathy from that. Overall prognosis appears to be guarded to poor due to multiple comorbidities. We will continue to follow and make recommendations from renal standpoint. [facility]# [id number] MICHELE/DENZEL HALL
[2016-11-21] MEDS: PEPCID PO SCH (10:58)
[2016-11-21] MEDS: NORVASC FEEDTUBE SCH (10:59)
--- NOTE | 2016-11-21 11:21 | Progress Note ---
Assessment and Plan Assessment and plan: Patient is a 66 y/o woman with multiple medical problems including ESRD, HTN, DM and decub ulcers sent from [facility] for G tube malfunction. Her Ct abdomen on admission showed hepatic lesion, concern for malignancy, CT guided liver biopsy done Saturday,11/19/16. The Old g tube was removed on 11/16 and replaced 11/20 Dislodged gastrostomy tube - replaced Mass of multiple sites of liver - Abscesses, continue Zosyn. - follow blood cx - CEA, CA 19, CA125 pending CVA (cerebral vascular accident) - cont Supp care - cont aspirin and lipitor HTN (hypertension) - Cont antihypertensives and adjust meds as necessary - on metoprolol, hydralazine and norvasc ESRD (end stage renal disease) - on HD, nephro following IDDM (insulin dependent diabetes mellitus) - Cont Insulin coverage with tube feeding Pressure ulcer, poa - present on Rt Ankle heel and sacrum - Wound care Liver biopsy done, follow results==>no malignancy, nonviral infectious hepatitis , Abd fluid culture growing GNR, await defecation sensitivity prior to discharge PEG re-place yesterday 11/20/2016 EGD: hiatal hernia - old peg noted - ulcer x 2 stomach - 20F pull peg placed, bumper at 3 1/[address] Hans Keating History Interval history: Patient seen and examined. Follow up on PEG tube malfunction. Overnight uneventful. No cp, sob, n/v or severe headaches. Imaging, old records, testing, labs, nursing notes reviewed. Hospitalist Physical - Physical exam Narrative exam: GEN: Chronically debilitated NAD, AWAKE, ALERT, ORIENTATED 2 CVS: RRR, NORMAL S1S2 LUNGS/CHEST: CTA B, NORMAL CHEST EXPANSION B, GOOD AIR ENTRY B ABD: SOFT NTND, GBS, NO REBOUND OR GUARDING NEURO: CN 2-12 GROSSLY INTACT, NO new FOCAL DEFICITS PSY: CALM - Constitutional Vitals: Temp Pulse Resp BP Pulse Ox 98.0 F 96 H 20 116/56 98 11/21/16 08:24 11/21/16 10:15 11/21/16 08:24 11/21/16 08:24 11/21/16 08:24 General appearance: Present: no acute distress Results - Labs CBC & Chem 7: 11/19/16 11:05 11/19/16 11:05 Labs: Laboratory Last Values WBC 12.2 K/mm3 (4.5-11.0) H 11/19/16 11:05 RBC 2.80 M/mm3 (3.65-5.03) L 11/19/16 11:05 Hgb 8.4 gm/dl (10.1-14.3) L 11/19/16 11:05 Hct 26.7 % (30.3-42.9) L 11/19/16 11:05 MCV 95 fl (79-97) 11/19/16 11:05 MCH 30 pg (28-32) 11/19/16 11:05 MCHC 32 % (30-34) 11/19/16 11:05 RDW 17.1 % (13.2-15.2) H 11/19/16 11:05 Plt Count 359 K/mm3 (140-440) 11/19/16 11:05 Lymph % (Auto) 25.0 % (13.4-35.0) 11/19/16 11:05 [place] % (Auto) 8.7 % (0.0-7.3) H 11/19/16 11:05 Eos % (Auto) 3.8 % (0.0-4.3) 11/19/16 11:05 Baso % (Auto) 0.5 % (0.0-1.8) 11/19/16 11:05 Lymph # 3.0 K/mm3 (1.2-5.4) 11/19/16 11:05 [place] # 1.1 K/mm3 (0.0-0.8) H 11/19/16 11:05 Eos # 0.5 K/mm3 (0.0-0.4) H 11/19/16 11:05 Baso # 0.1 K/mm3 (0.0-0.1) 11/19/16 11:05 Seg Neutrophils % 62.0 % (40.0-70.0) 11/19/16 11:05 Seg Neutrophils # 7.5 K/mm3 (1.8-7.7) 11/19/16 11:05 PT 15.3 Sec. (12.2-14.9) H 11/19/16 08:57 INR 1.22 (0.87-1.13) H 11/19/16 08:57 APTT 41.7 Sec. (24.2-36.6) H 11/19/16 08:57 Sodium 140 mmol/L (137-145) 11/19/16 11:05 Potassium 3.7 mmol/L (3.6-5.0) 11/19/16 11:05 Chloride 103.1 mmol/L (98-107) 11/19/16 11:05 Carbon Dioxide 24 mmol/L (22-30) 11/19/16 11:05 Anion Gap 17 mmol/L 11/19/16 11:05 BUN 26 mg/dL (7-17) H 11/19/16 11:05 Creatinine 2.6 mg/dL (0.7-1.2) H 11/19/16 11:05 Estimated GFR 22 ml/min 11/19/16 11:05 BUN/Creatinine Ratio 10.00 % 11/19/16 11:05 Glucose 96 mg/dL (65-100) 11/19/16 11:05 POC Glucose 72 (70-105) 11/21/16 05:04 Calcium 8.9 mg/dL (8.4-10.2) 11/19/16 11:05 Phosphorus 2.3 mg/dL (2.5-4.5) L 11/19/16 11:05 Total Bilirubin 0.3 mg/dL (0.1-1.2) 11/19/16 11:05 AST 19 units/L (5-40) 11/19/16 11:05 ALT 6 units/L (7-56) L 11/19/16 11:05 Alkaline Phosphatase 147 units/L (35-129) H 11/19/16 11:05 Total Protein 7.2 g/dL (6.3-8.2) 11/19/16 11:05 Albumin 2.0 g/dL (3.9-5) L 11/19/16 11:05 Albumin/Globulin Ratio 0.4 % 11/19/16 11:05 CA 19-9 Antigen 57 U/mL (<34) H 11/18/16 08:00 CA 125 Antigen 26 U/mL (<35) 11/18/16 08:00 PTH Intact 18.53 pg/mL (15-65) 11/19/16 15:53
[2016-11-21 11:24] LABS: Hematocrit 27.1 % (30.3-42.9); Hemoglobin 8.8 gm/dl (10.1-14.3); Mean Corpuscular HGB Conc 32 % (30-34); Mean Corpuscular Hemoglobin 31 pg (28-32); Mean Corpuscular Volume 95 fl (79-97); Platelet Count 296 K/mm3 (140-440); Red Blood Count 2.86 M/mm3 (3.65-5.03); Red Cell Distribution Width 16.7 % (13.2-15.2); White Blood Count 15.3 K/mm3 (4.5-11.0)
[2016-11-21 11:27] LABS: Calcium 8.8 mg/dL (8.4-10.2); Chloride 101.4 mmol/L (98-107); Potassium 3.5 mmol/L (3.6-5.0)
--- NOTE | 2016-11-21 15:21 | Gastroenterology Progress Note ---
Assessment and Plan 1. Liver: liver lesions unclear etiology - Ca 19-9, Ca 125, benign - s/p Liver BS with no malignant cells identified per BX, c/w infectious process. - further rec based on results 2. GI: S/P PEG placement -site benign. Bumper offloaded from skin. -TF initiated per Nutrition protocol. - will follow Subjective Date of service: 11/21/16 Interval history: S/P PEG on 11/20/16. TF initiated. Objective - Constitutional Vitals: Temp Pulse Resp BP Pulse Ox 98.0 F 96 H 20 116/56 98 11/21/16 08:24 11/21/16 10:15 11/21/16 08:24 11/21/16 08:24 11/21/16 08:24 General appearance: no acute distress - Gastrointestinal General gastrointestinal: Present: soft, non-tender, normal bowel sounds, other (PEG site benign. Liver BX site benign.) - Integumentary Integumentary: Present: warm, dry - Neurologic Neurological: other (alert, restrained right hand. ) - Labs CBC & Chem 7: 11/21/16 10:48 11/21/16 10:48 Labs: Laboratory Results - last 24 hr 11/18/16 11/18/16 11/20/16 08:00 08:00 16:07 WBC RBC Hgb Hct MCV MCH MCHC RDW Plt Count Sodium Potassium Chloride Carbon Dioxide Anion Gap BUN Creatinine Estimated GFR BUN/Creatinine Ratio Glucose POC Glucose 107 H Calcium CA 19-9 Antigen 57 H CA 125 Antigen 26 11/20/16 11/21/16 11/21/16 21:36 01:58 05:04 WBC RBC Hgb Hct MCV MCH MCHC RDW Plt Count Sodium Potassium Chloride Carbon Dioxide Anion Gap BUN Creatinine Estimated GFR BUN/Creatinine Ratio Glucose POC Glucose 103 122 H 72 Calcium CA 19-9 Antigen CA 125 Antigen 11/21/16 11/21/16 11/21/16 10:48 10:48 11:34 WBC 15.3 H RBC 2.86 L Hgb 8.8 L Hct 27.1 L MCV 95 MCH 31 MCHC 32 RDW 16.7 H Plt Count 296 Sodium 140 Potassium 3.5 L Chloride 101.4 Carbon Dioxide 27 Anion Gap 15 BUN 25 H Creatinine 2.5 H Estimated GFR 23 BUN/Creatinine Ratio 10.00 Glucose 96 POC Glucose 107 H Calcium 8.8 CA 19-9 Antigen CA 125 Antigen
[2016-11-21] MEDS: NOVOLOG SUB-Q SCH (23:27)
[2016-11-21] MEDS: LEVEMIR SUB-Q SCH (23:34)
[2016-11-22] MEDS: ZOSYN/NS 2.25 GM/50ML 2.25 GM/50 ML BAG IV SCH ×3 (06:08→22:43)
--- NOTE | 2016-11-22 08:07 | Progress Note ---
Assessment and Plan End-stage renal disease patient is currently in maintenance hemodialysis Saturday and Saturday she will continue to receive her dialysis without heparin Anemia and end-stage renal disease to monitor and follow hemoglobin is improving Secondary hyperparathyroidism monitor phosphorus and PTH Malnutrition risk is high in dialysis patient in general please consider high- protein diet Liver abscess currently being followed by gastroenterology service Hypokalemia patient will be kept on relatively higher dialysis potassium bath ? Teratoma C1 25 is normal/CA 199 is elevated PTH is 18.5 calcium 8.9 phosphorus 2.3 History of prior CVA some encephalopathy but better Overall stable from renal standpoint, we'll continue to follow and make recommendations Subjective Interval history: Patient was seen today for follow-up Denies any complaints of chest pain pressure or shortness of breath Doing better more alert today Vitals labs intake output medications were reviewed Events at 24 hours were noted Objective - Vital Signs Vital signs: Vital Signs - 12hr 11/21/16 11/22/16 23:25 00:37 Temperature 98.3 F Pulse Rate [ 99 H Left Radial] Pulse Rate [ 113 H Right Radial] Respiratory 20 Rate Blood Pressure 132/62 144/64 [Right Arm] O2 Sat by Pulse 22 L Oximetry - General Appearance General appearance: well-developed EENT: mucous membranes moist Neck: no JVD Respiratory: Present: Clear to Ascultation Cardiology: regular Gastrointestinal: normal (non tender ) - Lab 11/21/16 10:48 11/21/16 10:48 Most recent lab results Calcium 8.8 mg/dL (8.4-10.2) 11/21/16 10:48 Phosphorus 2.3 mg/dL (2.5-4.5) L 11/19/16 11:05
[2016-11-22] MEDS: LEVEMIR SUB-Q SCH ×2 (08:39→22:41)
[2016-11-22] MEDS ORDERED: NACL 0.9 (PRIMING MACHINE ONLY DIALYSIS) MC ONE (09:32)
[2016-11-22] MEDS: NORVASC FEEDTUBE SCH (10:00)
[2016-11-22] MEDS: NOVOLOG SUB-Q SCH ×2 (10:00→18:00)
[2016-11-22] MEDS: KEPPRA PO SCH (10:00)
[2016-11-22] MEDS: SENOKOT FEEDTUBE SCH (10:00)
[2016-11-22] MEDS: QUESTRAN PO SCH (10:00)
[2016-11-22] MEDS: LOPRESSOR PO SCH ×2 (10:00→22:40)
--- NOTE | 2016-11-22 11:02 | Gastroenterology Progress Note ---
Assessment and Plan 1. Liver: Biopsy c/w abscess - Ca 19-9, Ca 125, benign - s/p Liver BS with no malignant cells identified per BX, c/w infectious process. - further rec based on results - JOSE LUIS drain to RUQ 2. GI: S/P PEG placement -site benign. Bumper offloaded from skin. -TF initiated per Nutrition protocol. - Recommend ID consult. Currently on Zosyn (sensitive) Subjective Date of service: 11/22/16 Interval history: S/P PEG on 11/20/16. TF initiated. Tolerating well. Currently in Dialysis. Objective - Constitutional Vitals: Temp Pulse Resp BP Pulse Ox 98.2 F 92 H 20 136/66 99 11/22/16 08:30 11/22/16 08:30 11/22/16 08:30 11/22/16 08:30 11/22/16 08:30 General appearance: no acute distress - EENT Eyes: EOM intact ENT: hearing intact - Cardiovascular Rhythm: regular Heart Sounds: Present: S1 & S2 - Gastrointestinal General gastrointestinal: Present: non-tender, non-distended, normal bowel sounds, other (PEG site benign. JOSE LUIS drain noted to RUQ with purulent drainage.) - Integumentary Integumentary: Present: warm, dry - Labs CBC & Chem 7: 11/21/16 10:48 11/21/16 10:48 Labs: Laboratory Results - last 24 hr 11/18/16 11/18/16 11/21/16 08:00 08:00 10:48 WBC 15.3 H RBC 2.86 L Hgb 8.8 L Hct 27.1 L MCV 95 MCH 31 MCHC 32 RDW 16.7 H Plt Count 296 Sodium Potassium Chloride Carbon Dioxide Anion Gap BUN Creatinine Estimated GFR BUN/Creatinine Ratio Glucose POC Glucose Calcium Tumor Marker AFP See scanned report Carcinoembryonic Ag See scanned report 11/21/16 11/21/16 11/21/16 10:48 11:34 16:18 WBC RBC Hgb Hct MCV MCH MCHC RDW Plt Count Sodium 140 Potassium 3.5 L Chloride 101.4 Carbon Dioxide 27 Anion Gap 15 BUN 25 H Creatinine 2.5 H Estimated GFR 23 BUN/Creatinine Ratio 10.00 Glucose 96 POC Glucose 107 H 156 H Calcium 8.8 Tumor Marker AFP Carcinoembryonic Ag 11/21/16 11/22/16 21:38 06:12 WBC RBC Hgb Hct MCV MCH MCHC RDW Plt Count Sodium Potassium Chloride Carbon Dioxide Anion Gap BUN Creatinine Estimated GFR BUN/Creatinine Ratio Glucose POC Glucose 191 H 194 H Calcium Tumor Marker AFP Carcinoembryonic Ag
--- NOTE | 2016-11-22 11:15 | Progress Note ---
Assessment and Plan Assessment and plan: Patient is a 66 y/o woman with multiple medical problems including ESRD, HTN, DM and decub ulcers sent from [facility] for G tube malfunction. Her Ct abdomen on admission showed hepatic lesion, concern for malignancy, CT guided liver biopsy done Saturday,11/19/16. The Old g tube was removed on 11/16 and replaced 11/20 Dislodged gastrostomy tube - replaced Mass of multiple sites of liver - Abscesses, continue Zosyn. - follow blood cx - CEA, CA 19, CA125 pending CVA (cerebral vascular accident) - cont Supp care - cont aspirin and lipitor HTN (hypertension) - Cont antihypertensives and adjust meds as necessary - on metoprolol, hydralazine and norvasc ESRD (end stage renal disease) - on HD, nephro following IDDM (insulin dependent diabetes mellitus) - Cont Insulin coverage with tube feeding Pressure ulcer, poa - present on Rt Ankle heel and sacrum - Wound care Liver biopsy done, follow results==>no malignancy, nonviral infectious hepatitis , Abd fluid culture growing GNR, await defecation sensitivity prior to discharge PEG re-place yesterday 11/20/2016 EGD: hiatal hernia - old peg noted - ulcer x 2 stomach - 20F pull peg placed, bumper at 3 1/[address] Hans Keating consult ID for K. pneumoniae with high MARK to zosyn History Interval history: Patient seen and examined. Follow up on PEG tube malfunction. Overnight uneventful. No cp, sob, n/v or severe headaches. Imaging, old records, testing, labs, nursing notes reviewed. Hospitalist Physical - Physical exam Narrative exam: GEN: Chronically debilitated NAD, AWAKE, ALERT, ORIENTATED 2 CVS: RRR, NORMAL S1S2 LUNGS/CHEST: CTA B, NORMAL CHEST EXPANSION B, GOOD AIR ENTRY B ABD: SOFT NTND, GBS, NO REBOUND OR GUARDING NEURO: CN 2-12 GROSSLY INTACT, NO new FOCAL DEFICITS PSY: CALM - Constitutional Vitals: Temp Pulse Resp BP Pulse Ox 98.2 F 86 16 144/66 99 11/22/16 10:30 11/22/16 10:30 11/22/16 10:30 11/22/16 10:30 11/22/16 08:30 General appearance: Present: no acute distress Results - Labs CBC & Chem 7: 11/21/16 10:48 11/21/16 10:48 Labs: Laboratory Last Values WBC 15.3 K/mm3 (4.5-11.0) H 11/21/16 10:48 RBC 2.86 M/mm3 (3.65-5.03) L 11/21/16 10:48 Hgb 8.8 gm/dl (10.1-14.3) L 11/21/16 10:48 Hct 27.1 % (30.3-42.9) L 11/21/16 10:48 MCV 95 fl (79-97) 11/21/16 10:48 MCH 31 pg (28-32) 11/21/16 10:48 MCHC 32 % (30-34) 11/21/16 10:48 RDW 16.7 % (13.2-15.2) H 11/21/16 10:48 Plt Count 296 K/mm3 (140-440) 11/21/16 10:48 Lymph % (Auto) 25.0 % (13.4-35.0) 11/19/16 11:05 [place] % (Auto) 8.7 % (0.0-7.3) H 11/19/16 11:05 Eos % (Auto) 3.8 % (0.0-4.3) 11/19/16 11:05 Baso % (Auto) 0.5 % (0.0-1.8) 11/19/16 11:05 Lymph # 3.0 K/mm3 (1.2-5.4) 11/19/16 11:05 [place] # 1.1 K/mm3 (0.0-0.8) H 11/19/16 11:05 Eos # 0.5 K/mm3 (0.0-0.4) H 11/19/16 11:05 Baso # 0.1 K/mm3 (0.0-0.1) 11/19/16 11:05 Seg Neutrophils % 62.0 % (40.0-70.0) 11/19/16 11:05 Seg Neutrophils # 7.5 K/mm3 (1.8-7.7) 11/19/16 11:05 PT 15.3 Sec. (12.2-14.9) H 11/19/16 08:57 INR 1.22 (0.87-1.13) H 11/19/16 08:57 APTT 41.7 Sec. (24.2-36.6) H 11/19/16 08:57 Sodium 140 mmol/L (137-145) 11/21/16 10:48 Potassium 3.5 mmol/L (3.6-5.0) L 11/21/16 10:48 Chloride 101.4 mmol/L (98-107) 11/21/16 10:48 Carbon Dioxide 27 mmol/L (22-30) 11/21/16 10:48 Anion Gap 15 mmol/L 11/21/16 10:48 BUN 25 mg/dL (7-17) H 11/21/16 10:48 Creatinine 2.5 mg/dL (0.7-1.2) H 11/21/16 10:48 Estimated GFR 23 ml/min 11/21/16 10:48 BUN/Creatinine Ratio 10.00 % 11/21/16 10:48 Glucose 96 mg/dL (65-100) 11/21/16 10:48 POC Glucose 194 (70-105) H 11/22/16 06:12 Calcium 8.8 mg/dL (8.4-10.2) 11/21/16 10:48 Phosphorus 2.3 mg/dL (2.5-4.5) L 11/19/16 11:05 Total Bilirubin 0.3 mg/dL (0.1-1.2) 11/19/16 11:05 AST 19 units/L (5-40) 11/19/16 11:05 ALT 6 units/L (7-56) L 11/19/16 11:05 Alkaline Phosphatase 147 units/L (35-129) H 11/19/16 11:05 Total Protein 7.2 g/dL (6.3-8.2) 11/19/16 11:05 Albumin 2.0 g/dL (3.9-5) L 11/19/16 11:05 Albumin/Globulin Ratio 0.4 % 11/19/16 11:05 Tumor Marker AFP See scanned report 11/18/16 08:00 Carcinoembryonic Ag See scanned report 11/18/16 08:00 CA 19-9 Antigen 57 U/mL (<34) H 11/18/16 08:00 CA 125 Antigen 26 U/mL (<35) 11/18/16 08:00 PTH Intact 18.53 pg/mL (15-65) 11/19/16 15:53
[2016-11-22] MEDS ORDERED: D50W (25GM) IV PRN (11:36)
[2016-11-22] MEDS ORDERED: SODIUM BICARBONATE FEEDTUBE PRN (11:51)
[2016-11-22] MEDS ORDERED: SIMPLE SYRUP FEEDTUBE PRN ×2 (11:51)
[2016-11-22] MEDS ORDERED: PANCREAZE DR 10,500 UNIT FEEDTUBE PRN (11:51)
[2016-11-22] MEDS: APRESOLINE FEEDTUBE SCH ×2 (14:00→14:24)
[2016-11-22] MEDS: HEPARIN IV PRN (14:57)
[2016-11-22] MEDS: PEPCID PO SCH (15:35)
[2016-11-22] MEDS: Centrum Liq FEEDTUBE SCH (15:36)
[2016-11-22] MEDS: CYMBALTA FEEDTUBE SCH (15:36)
[2016-11-22] MEDS: VITAMIN C FEEDTUBE SCH ×2 (15:38→22:40)
--- NOTE | 2016-11-22 20:13 | Consultation ---
History of Present Illness - Reason for Consult Consult date: 11/22/16 hepatic abscess Requesting physician: KARAN KHAN - History of Present Illness 66 y/o female with multiple medical problems including ESRD HTN DM and decub ulcers sent from [facility] for G tube malfunction.No fever or chills.No SOB chest pain. During hospital stay, a ct abdomen was done which revealed multiple liver lesions. CT duided drainage yielded large amount of pus. Infectious disease now called to evaluate appropriate management. Patient seen at bedside. She denied any symptoms. Past Medical History: COPD (Multiple dec ulcers incl R boston L heel and sacrum), diabetes, dialysis, ESRD, hypertension, renal failure, stroke, other PHYSICAL EXAM VS - Afebrile. chest - good air entry cvs - s1s2 abd - bs+ LABS Abscess culture grew - klebsiella pneumonia. ASSESSMENT. 1. Liver abscess 2. Dm2 3. ESRD on hd 4. COPD RECOMMENDATION 1. REPEAT CT ABDOMEN TO EVALUATE THE ABSCESSES. If there are still drainable abscesses, will recommend to drain 2. CONTINUE CURRENT IV ABX 3. Will need prolonged iv antibiotics until resolution of abscess. 4. Picc line placement. Please coordinate with safety glass installer. Past History Past Medical History: COPD (Multiple dec ulcers incl R boston L heel and sacrum), diabetes, dialysis, ESRD, hypertension, renal failure, stroke, other Past Surgical History: Other (PEG tube) Social history: full code, other ([facility] resident) Medications and Allergies Allergies Allergy/AdvReac Type Severity Reaction Status Date / Time Iodine and Iodide Containing Allergy Nausea Verified 05/29/15 12:33 Produc Home Medications Medication Instructions Recorded Confirmed Last Taken Type Bisacodyl [Dulcolax suppos] 10 mg NM QDAY PRN #30 supp.rect 12/14/15 11/17/16 Unknown Rx levETIRAcetam [Keppra TAB] 500 mg PO Q12H tablet 12/14/15 11/17/16 Unknown Rx Acetaminophen [Acetaminophen TAB] 650 mg FEEDTUBE Q6HR PRN 03/10/16 11/17/16 Unknown History Ascorbic Acid [Vitamin C] 500 mg FEEDTUBE BID 03/10/16 11/17/16 Unknown History Diphenhydramine HCl [Benadryl 25 mg FEEDTUBE Q6H PRN 03/10/16 11/17/16 Unknown History Allergy TAB] Duloxetine HCl [Cymbalta] 60 mg FEEDTUBE QDAY 03/10/16 11/17/16 Unknown History Insulin Regular, Human [HumuLIN R] 100 units SQ ACHS 03/10/16 11/17/16 Unknown History LORazepam [Ativan] 1 mg PO TID PRN 03/10/16 11/17/16 Unknown History Metoprolol Tartrate 100 mg PO BID 03/10/16 11/17/16 Unknown History amLODIPine [Norvasc] 10 mg FEEDTUBE QDAY 03/10/16 11/17/16 Unknown History hydrALAZINE [Apresoline TAB] 100 mg FEEDTUBE TID 03/10/16 11/17/16 Unknown History Insulin Aspart Prot/Aspart See Protocol SUB-Q ACHS 05/27/16 11/17/16 Unknown History [NovoLOG Mix 70/30 VIAL] Insulin Glargine [Lantus VIAL] 10 unit SUB-Q QHS 05/27/16 11/17/16 Unknown History Multivitamins Liq [Multiple 15 ml FEEDTUBE QDAY 05/27/16 11/17/16 Unknown History Vitamin Liq (Theragran)] Nut.tx.gluc.intoler,Lac-Fr,Soy 50 ml FEEDTUBE CONT 05/27/16 11/17/16 Unknown History [Glucerna 1.5 [place]] Lipase/Protease/Amylase [Pancreaze 1 each FEEDTUBE PRN PRN #1 capsule 05/31/16 11/17/[address] 10,500 Unit] Sennosides Tab [Senokot] 8.6 mg FEEDTUBE QDAY tablet 05/31/16 11/17/16 Unknown Rx Simple Syrup 15 ml FEEDTUBE PRN PRN #1 oral.liqd 05/31/16 11/17/16 Unknown Rx Simple Syrup 30 ml FEEDTUBE PRN PRN #1 oral.liqd 05/31/16 11/17/16 Unknown Rx Sodium Bicarbonate 325 mg FEEDTUBE PRN PRN #1 tablet 05/31/16 11/17/16 Unknown Rx Aspirin EC [Aspirin Enteric Coated 325 mg FEEDTUBE QDAY 08/11/16 11/17/16 Unknown History TAB] Famotidine [Pepcid] 20 mg PO DAILY tablet 08/28/16 11/17/16 Unknown Rx Insulin Detemir [Levemir] 30 units SUB-Q QDDIAB units 08/28/16 11/17/16 Unknown Rx Ipratropium/Albuterol Sulfate 1 ampul IH TIDRT ampul.neb 08/28/16 11/17/16 Unknown Rx [Duoneb 0.5 mg-3 mg/3 ml Soln] Cholestyramine (with Sugar) 8 gm PO QD 7 Days 10/11/16 11/17/16 Unknown Rx [Questran] Active Meds: Active Medications Acetaminophen (Tylenol) 650 mg FEEDTUBE Q4H PRN PRN Reason: Pain, Mild (1-3) Last Admin: 11/20/16 21:46 Dose: 650 mg Amlodipine Besylate (Norvasc) 10 mg FEEDTUBE QDAY [facility] Last Admin: 11/22/16 10:00 Dose: Not Given Lipase/Protease/Amylase (Pancreaze Dr 10,500 Unit) 1 each FEEDTUBE PRN PRN PRN Reason: For Clogged Feeding Tube Ascorbic Acid (Vitamin C) 500 mg FEEDTUBE BID [facility] Last Admin: 11/22/16 15:38 Dose: 500 mg Atorvastatin Calcium (Lipitor) 40 mg PO QHS [facility] Last Admin: 11/21/16 23:28 Dose: 40 mg Bisacodyl (Dulcolax) 10 mg NM QDAY PRN PRN Reason: Constipation unrelieved by MOM Cholestyramine Resin (Questran) 8 gm PO QDAY [facility] Last Admin: 11/22/16 10:00 Dose: Not Given Dextrose (D50w (25gm)) 50 ml IV PRN PRN PRN Reason: Hypoglycemia Duloxetine HCl (Cymbalta) 60 mg FEEDTUBE QDAY [facility] Last Admin: 11/22/16 15:36 Dose: 60 mg Famotidine (Pepcid) 20 mg PO DAILY [facility] Last Admin: 11/22/16 15:35 Dose: 20 mg Heparin Sodium (Porcine) (Heparin) 5,000 unit IV BRIANNE PRN PRN Reason: hemodialysis Last Admin: 11/22/16 14:57 Dose: 5,000 unit Hydralazine HCl (Apresoline) 100 mg FEEDTUBE TID [facility] Last Admin: 11/22/16 14:24 Dose: Not Given Hydromorphone HCl (Dilaudid) 0.5 mg IV Q3H PRN PRN Reason: Pain , Severe (7-10) Last Admin: 11/20/16 23:59 Dose: 0.5 mg Piperacillin Sod/Tazobactam Sod (Zosyn/Ns 2.25 Gm/50ml) 2.25 gm in 50 mls @ 100 mls/hr IV Q8HR [facility] Last Admin: 11/22/16 15:38 Dose: 100 mls/hr Sodium Chloride (Nacl 0.9%) 100 mls @ 999 mls/hr IV BRIANNE PRN PRN Reason: Hypotension Sodium Chloride (Nacl 0.9% 1000 Ml) 1,000 mls @ 50 mls/hr IV DIRECT LUCITA Insulin Aspart (Novolog) 0 units SUB-Q Q6HR [facility] PRN Reason: Protocol Last Admin: 11/22/16 10:00 Dose: Not Given Insulin Detemir (Levemir) 30 units SUB-Q QDDIAB [facility] Last Admin: 11/22/16 08:39 Dose: 30 units Insulin Detemir (Levemir) 10 units SUB-Q QHS [facility] Last Admin: 11/21/16 23:34 Dose: 10 units Levetiracetam (Keppra) 500 mg PO Q12H [facility] Last Admin: 11/22/16 10:00 Dose: Not Given Lorazepam (Ativan) 1 mg PO TID PRN PRN Reason: Agitation Magnesium Hydroxide (Milk Of Magnesia) 30 ml PO Q4H PRN PRN Reason: Constipation Metoprolol Tartrate (Lopressor) 100 mg PO BID [facility] Last Admin: 11/22/16 10:00 Dose: Not Given Multivitamins (Centrum Liq) 15 ml FEEDTUBE QDAY [facility] Last Admin: 11/22/16 15:36 Dose: 15 ml Ondansetron HCl (Zofran) 4 mg IV Q8H PRN PRN Reason: N/V unrelieved by Evan Aguirre (Senokot) 8.6 mg FEEDTUBE QDAY [facility] Last Admin: 11/22/16 10:00 Dose: Not Given Simple Syrup (Simple Syrup) 15 ml FEEDTUBE PRN PRN PRN Reason: Hypoglycemia Simple Syrup (Simple Syrup) 30 ml FEEDTUBE PRN PRN PRN Reason: Hypoglycemia Sodium Bicarbonate (Sodium Bicarbonate) 325 mg FEEDTUBE PRN PRN PRN Reason: For Clogged Feeding Tube Zolpidem Tartrate (Ambien) 5 mg PO QHS PRN PRN Reason: Insomnia Last Admin: 11/18/16 21:15 Dose: 5 mg Physical Examination - Constitutional Vitals: Vital Signs Temp Pulse Resp BP Pulse Ox 98.3 F 99 H 16 117/61 99 11/22/16 14:50 11/22/16 14:50 11/22/16 14:50 11/22/16 14:50 11/22/16 08:30 Temperature -Last 24 Hours Temperature 98.3 F Temperature 98.2 F Temperature 98.2 F Temperature 98.3 F Results - Labs CBC & Chem 7: 11/21/16 10:48 11/21/16 10:48 Labs: Abnormal lab results 11/21/16 11/22/16 Range/Units 21:38 06:12 POC Glucose 191 H 194 H (70-105)
--- NOTE | 2016-11-23 04:18 | Cat Scan Report ---
FINAL REPORT EXAM: CT ABDOMEN WO CON HISTORY: abscess s/p drainage 11-19-16 TECHNIQUE: A CT of the abdomen was performed. Images extend from the diaphragm to the iliac crests. Coronal and sagittal reformatted images were obtained. PRIORS: 11/15/2016 FINDINGS: There is interval placement of a percutaneous drainage tube in the liver. Large low-density lesion previously-seen is now significantly smaller. This is reportedly an abscess. Although margins not well seen, at it currently measures roughly 3 cm as opposed to over 7 cm largest dimension on the prior. There are multiple additional cysts liver and splenic lesions which are similar prior. These could be additional abscesses versus metastatic lesions. There is likely cholelithiasis. The gallbladder is partially contracted. There is an unchanged large right renal cyst. There are atherosclerotic calcifications involving aortoiliac vessels, celiac trunk/axis, SMA and renal arteries. There is no abdominal aortic aneurysm. There is diverticulosis seen in visualized right colon. There is no acute diverticulitis seen in the visualized abdomen. There is no evidence of intestinal obstruction. There is no free intraperitoneal air. There is a percutaneous gastrostomy tube present, now in the stomach. IMPRESSION: Interval drainage of large cystic lesion in the right lobe which is presumably an abscess. Is now much smaller measuring up to 3 cm as opposed to over 7 cm on the previous. There are additional low-density liver and splenic lesions seen which are unchanged. These could be metastatic lesions versus additional abscesses. Cholelithiasis Diverticulosis. No diverticulitis seen.
[2016-11-23] MEDS: NOVOLOG SUB-Q SCH ×3 (05:20→12:10)
[2016-11-23] MEDS: ZOSYN/NS 2.25 GM/50ML 2.25 GM/50 ML BAG IV SCH ×3 (05:49→21:44)
[2016-11-23] MEDS: APRESOLINE FEEDTUBE SCH (08:47)
[2016-11-23 10:36] LABS: Hematocrit 27.1 % (30.3-42.9); Hemoglobin 8.8 gm/dl (10.1-14.3); Mean Corpuscular HGB Conc 33 % (30-34); Mean Corpuscular Hemoglobin 31 pg (28-32); Mean Corpuscular Volume 94 fl (79-97); Platelet Count 304 K/mm3 (140-440); Red Blood Count 2.88 M/mm3 (3.65-5.03); Red Cell Distribution Width 16.7 % (13.2-15.2); White Blood Count 12.9 K/mm3 (4.5-11.0)
[2016-11-23 11:03] LABS: Albumin 2.5 g/dL (3.9-5); Albumin/Globulin Ratio 0.5 %; Alkaline Phosphatase 262 units/L (35-129); Anion Gap 18 mmol/L; BUN/Creatinine Ratio 12.27; Bilirubin,Total 0.4 mg/dL (0.1-1.2); Blood Urea Nitrogen 27 mg/dL (7-17); Calcium 8.8 mg/dL (8.4-10.2); Carbon Dioxide 26 mmol/L (22-30); Chloride 100.3 mmol/L (98-107); Glucose 105 mg/dL (65-100); Potassium 3.9 mmol/L (3.6-5.0); Sodium 140 mmol/L (137-145); Total Protein 7.6 g/dL (6.3-8.2)
--- NOTE | 2016-11-23 11:09 | Gastroenterology Progress Note ---
Assessment and Plan GI: s/p peg w/o complication - use as needed Liver: abscesses with Klebsiella - repeat ct scan with some improvement with drainage - continue antibiotics - management and other interventions per ID - will sign off, call if needed Subjective Date of service: 11/23/16 Interval history: - no problems overnight per staff Objective - Constitutional Vitals: Temp Pulse Resp BP Pulse Ox 98.6 F 102 H 18 137/65 99 11/23/16 08:00 11/23/16 08:00 11/23/16 08:00 11/23/16 08:00 11/23/16 08:00 General appearance: no acute distress - EENT Eyes: PERRL - Respiratory Respiratory: bilateral: CTA - Cardiovascular Rhythm: regular Heart Sounds: Present: S1 & S2 - Gastrointestinal General gastrointestinal: Present: soft, non-tender, non-distended - Labs CBC & Chem 7: 11/23/16 10:17 11/23/16 10:17 Labs: Laboratory Results - last 24 hr 11/22/16 11/23/16 11/23/16 16:35 00:13 05:52 WBC RBC Hgb Hct MCV MCH MCHC RDW Plt Count Sodium Potassium Chloride Carbon Dioxide Anion Gap BUN Creatinine Estimated GFR BUN/Creatinine Ratio Glucose POC Glucose 85 74 65 L Calcium Total Bilirubin AST Alkaline Phosphatase Total Protein Albumin Albumin/Globulin Ratio 11/23/16 11/23/16 11/23/16 07:43 10:17 10:17 WBC 12.9 H RBC 2.88 L Hgb 8.8 L Hct 27.1 L MCV 94 MCH 31 MCHC 33 RDW 16.7 H Plt Count 304 Sodium 140 Potassium 3.9 Chloride 100.3 Carbon Dioxide 26 Anion Gap 18 BUN 27 H Creatinine 2.2 H Estimated GFR 27 BUN/Creatinine Ratio 12.27 Glucose 105 H POC Glucose 136 H Calcium 8.8 Total Bilirubin 0.4 AST 15 Alkaline Phosphatase 262 H Total Protein 7.6 Albumin 2.5 L Albumin/Globulin Ratio 0.5
[2016-11-23 11:13] LABS: Alanine Aminotransferase < 5 units/L (7-56)
[2016-11-23] MEDS: LOPRESSOR PO SCH ×2 (11:55→22:00)
[2016-11-23] MEDS: VITAMIN C FEEDTUBE SCH ×2 (11:55→21:45)
[2016-11-23] MEDS: NORVASC FEEDTUBE SCH (11:55)
[2016-11-23] MEDS: PEPCID PO SCH (11:56)
[2016-11-23] MEDS: CYMBALTA FEEDTUBE SCH (11:56)
--- NOTE | 2016-11-23 11:56 | Progress Note ---
Assessment and Plan End-stage renal disease patient is currently in maintenance hemodialysis Saturday and Saturday she will continue to receive her dialysis without heparin, we'll continue to monitor dialysis-related labs Anemia and end-stage renal disease to monitor and follow hemoglobin is improving we will use erythropoietin during hemodialysis Secondary hyperparathyroidism monitor phosphorus and PTH Malnutrition risk is high in dialysis patient in general please consider high- protein diet and dietitian evaluation Liver abscess currently being followed by gastroenterology servicepatient is currently on antibiotics Hypokalemia patient will be kept on relatively higher dialysis potassium bath ? Teratoma C1 25 is normal/CA 199 is elevated PTH is 18.5 calcium 8.9 phosphorus 2.3 History of prior CVA some encephalopathy but better Overall stable from renal standpoint, we'll continue to follow and make recommendations Subjective Interval history: patient was seen today for follow-up she seems to be relatively more alert awake currently tolerating tube feeding She is also being placed on IV antibiotic for possible hepatic abscess Admitted with malfunctioning feeding tube CT scan showed multiple spots in her liver GI is currently following her she's tolerating tube feeds now well Objective - Vital Signs Vital signs: Vital Signs - 12hr 11/23/16 11/23/16 00:00 08:00 Temperature 98.9 F 98.6 F Pulse Rate [ 113 H 102 H Left Radial] Respiratory 20 18 Rate Blood Pressure 137/65 137/65 [Left Arm] O2 Sat by Pulse 99 99 Oximetry - General Appearance General appearance: appears stated age EENT: mucous membranes moist Neck: no JVD Respiratory: Present: Clear to Ascultation Cardiology: regular Gastrointestinal: other (nontender abdomen) Integumentary: no rash Neurologic: other (arousable but encephalopathic stable) - Lab 11/23/16 10:17 11/23/16 10:17 Most recent lab results Calcium 8.8 mg/dL (8.4-10.2) 11/23/16 10:17 Phosphorus 2.3 mg/dL (2.5-4.5) L 11/19/16 11:05
[2016-11-23] MEDS: QUESTRAN PO SCH ×2 (11:57→11:58)
[2016-11-23] MEDS: SENOKOT FEEDTUBE SCH (12:10)
[2016-11-23] MEDS: LEVEMIR SUB-Q SCH ×2 (12:10→22:05)
[2016-11-23] MEDS: Centrum Liq FEEDTUBE SCH (12:40)
[2016-11-23] MEDS: KEPPRA PO SCH ×2 (12:40→21:45)
--- NOTE | 2016-11-23 13:23 | Progress Note ---
Assessment and Plan Assessment and plan: Patient is a 66 y/o woman with multiple medical problems including ESRD, HTN, DM and decub ulcers sent from [facility] for G tube malfunction. Her Ct abdomen on admission showed hepatic lesion, concern for malignancy, CT guided liver biopsy done Saturday,11/19/16. The Old g tube was removed on 11/16 and replaced 11/20 Dislodged gastrostomy tube - replaced Mass of multiple sites of liver - Abscesses, continue Zosyn. - follow blood cx - CEA, CA 19, CA125 pending CVA (cerebral vascular accident) - cont Supp care - cont aspirin and lipitor HTN (hypertension) - Cont antihypertensives and adjust meds as necessary - on metoprolol, hydralazine and norvasc ESRD (end stage renal disease) - on HD, nephro following IDDM (insulin dependent diabetes mellitus) - Cont Insulin coverage with tube feeding Pressure ulcer, poa - present on Rt Ankle heel and sacrum - Wound care Liver biopsy done, follow results==>no malignancy, nonviral infectious hepatitis , Abd fluid culture growing K.pneumoniae PEG re-place yesterday 11/20/2016 EGD: hiatal hernia - old peg noted - ulcer x 2 stomach - 20F pull peg placed, bumper at 3 1/[address] Hans Keating consult ID for K. pneumoniae with high MARK to zosyn reviewed repeat ct a/p d/w bessy Osborn for picc if Infectious Disease needs it anticipate discharge back to [facility] (dma-6 signed today) over the weekend. History Interval history: Patient seen and examined. Follow up on PEG tube malfunction. Overnight uneventful. No cp, sob, n/v or severe headaches. Imaging, old records, testing, labs, nursing notes reviewed. Hospitalist Physical - Physical exam Narrative exam: GEN: Chronically debilitated NAD, AWAKE, ALERT, ORIENTATED 2 CVS: RRR, NORMAL S1S2 LUNGS/CHEST: CTA B, NORMAL CHEST EXPANSION B, GOOD AIR ENTRY B ABD: SOFT NTND, GBS, NO REBOUND OR GUARDING NEURO: CN 2-12 GROSSLY INTACT, NO new FOCAL DEFICITS PSY: CALM - Constitutional Vitals: Temp Pulse Resp BP Pulse Ox 98.6 F 102 H 18 118/61 99 11/23/16 08:00 11/23/16 08:00 11/23/16 08:00 11/23/16 11:55 11/23/16 08:00 General appearance: Present: no acute distress Results - Labs CBC & Chem 7: 11/23/16 10:17 11/23/16 10:17 Labs: Laboratory Last Values WBC 12.9 K/mm3 (4.5-11.0) H 11/23/16 10:17 RBC 2.88 M/mm3 (3.65-5.03) L 11/23/16 10:17 Hgb 8.8 gm/dl (10.1-14.3) L 11/23/16 10:17 Hct 27.1 % (30.3-42.9) L 11/23/16 10:17 MCV 94 fl (79-97) 11/23/16 10:17 MCH 31 pg (28-32) 11/23/16 10:17 MCHC 33 % (30-34) 11/23/16 10:17 RDW 16.7 % (13.2-15.2) H 11/23/16 10:17 Plt Count 304 K/mm3 (140-440) 11/23/16 10:17 Lymph % (Auto) 25.0 % (13.4-35.0) 11/19/16 11:05 [place] % (Auto) 8.7 % (0.0-7.3) H 11/19/16 11:05 Eos % (Auto) 3.8 % (0.0-4.3) 11/19/16 11:05 Baso % (Auto) 0.5 % (0.0-1.8) 11/19/16 11:05 Lymph # 3.0 K/mm3 (1.2-5.4) 11/19/16 11:05 [place] # 1.1 K/mm3 (0.0-0.8) H 11/19/16 11:05 Eos # 0.5 K/mm3 (0.0-0.4) H 11/19/16 11:05 Baso # 0.1 K/mm3 (0.0-0.1) 11/19/16 11:05 Seg Neutrophils % 62.0 % (40.0-70.0) 11/19/16 11:05 Seg Neutrophils # 7.5 K/mm3 (1.8-7.7) 11/19/16 11:05 PT 15.3 Sec. (12.2-14.9) H 11/19/16 08:57 INR 1.22 (0.87-1.13) H 11/19/16 08:57 APTT 41.7 Sec. (24.2-36.6) H 11/19/16 08:57 Sodium 140 mmol/L (137-145) 11/23/16 10:17 Potassium 3.9 mmol/L (3.6-5.0) 11/23/16 10:17 Chloride 100.3 mmol/L (98-107) 11/23/16 10:17 Carbon Dioxide 26 mmol/L (22-30) 11/23/16 10:17 Anion Gap 18 mmol/L 11/23/16 10:17 BUN 27 mg/dL (7-17) H 11/23/16 10:17 Creatinine 2.2 mg/dL (0.7-1.2) H 11/23/16 10:17 Estimated GFR 27 ml/min 11/23/16 10:17 BUN/Creatinine Ratio 12.27 % 11/23/16 10:17 Glucose 105 mg/dL (65-100) H 11/23/16 10:17 POC Glucose 122 (70-105) H 11/23/16 12:02 Calcium 8.8 mg/dL (8.4-10.2) 11/23/16 10:17 Phosphorus 2.3 mg/dL (2.5-4.5) L 11/19/16 11:05 Total Bilirubin 0.4 mg/dL (0.1-1.2) 11/23/16 10:17 AST 15 units/L (5-40) 11/23/16 10:17 ALT < 5 units/L (7-56) L 11/23/16 10:17 Alkaline Phosphatase 262 units/L (35-129) H 11/23/16 10:17 Total Protein 7.6 g/dL (6.3-8.2) 11/23/16 10:17 Albumin 2.5 g/dL (3.9-5) L 11/23/16 10:17 Albumin/Globulin Ratio 0.5 % 11/23/16 10:17 Tumor Marker AFP See scanned report 11/18/16 08:00 Carcinoembryonic Ag See scanned report 11/18/16 08:00 CA 19-9 Antigen 57 U/mL (<34) H 11/18/16 08:00 CA 125 Antigen 26 U/mL (<35) 11/18/16 08:00 PTH Intact 18.53 pg/mL (15-65) 11/19/16 15:53
--- NOTE | 2016-11-23 21:05 | Progress Note ---
Subjective Date of service: 11/23/16 Principal diagnosis: liver abscess Interval history: Patient seen and examined. She has no complaints. PHYSICAL EXAM VS - Afebrile. chest - good air entry cvs - s1s2 abd - bs+ LABS Abscess culture grew - klebsiella pneumonia. Repeat ct showed resolving abscess which has reduced in size from 7cm diameter to about 3cm. ASSESSMENT. 1. Liver abscess 2. Dm2 3. ESRD on hd 4. COPD RECOMMENDATION 1. D/C planning on IV ertapenem 1g daily for 2weeks, then repeat ct. If abscess resolves, d/c ertapenem. If not continue another 2weeks and repeat ct. 2. close follow up by pmd. Objective - Constitutional Vitals: Vital Signs Temp Pulse Resp BP Pulse Ox 99.3 F 94 H 18 119/56 98 11/23/16 15:24 11/23/16 15:24 11/23/16 15:24 11/23/16 15:24 11/23/16 15:24 Temperature -Last 24 Hours Temperature 99.3 F Temperature 98.6 F Temperature 98.9 F - Labs CBC & Chem 7: 11/23/16 10:17 11/23/16 10:17 Labs: Abnormal lab results 11/23/16 11/23/16 11/23/16 Range/Units 05:52 07:43 10:17 WBC 12.9 H (4.5-11.0) K/mm3 RBC 2.88 L (3.65-5.03) M/mm3 Hgb 8.8 L (10.1-14.3) gm/dl Hct 27.1 L (30.3-42.9) % RDW 16.7 H (13.2-15.2) % BUN (7-17) mg/dL Creatinine (0.7-1.2) mg/dL Glucose (65-100) mg/dL POC Glucose 65 L 136 H (70-105) ALT (7-56) units/L Alkaline Phosphatase (35-129) units/L Albumin (3.9-5) g/dL 11/23/16 11/23/16 11/23/16 Range/Units 10:17 12:02 16:46 WBC (4.5-11.0) K/mm3 RBC (3.65-5.03) M/mm3 Hgb (10.1-14.3) gm/dl Hct (30.3-42.9) % RDW (13.2-15.2) % BUN 27 H (7-17) mg/dL Creatinine 2.2 H (0.7-1.2) mg/dL Glucose 105 H (65-100) mg/dL POC Glucose 122 H 122 H (70-105) ALT < 5 L (7-56) units/L Alkaline Phosphatase 262 H (35-129) units/L Albumin 2.5 L (3.9-5) g/dL
[2016-11-23] MEDS: AMBIEN PO PRN (21:44)
[2016-11-24] MEDS: NOVOLOG SUB-Q SCH ×4 (04:41→19:08)
[2016-11-24] MEDS: ZOSYN/NS 2.25 GM/50ML 2.25 GM/50 ML BAG IV SCH ×3 (05:51→22:30)
--- NOTE | 2016-11-24 09:44 | Progress Note ---
Assessment and Plan Assessment and plan: 1. Dislodged gastrostomy tube - replaced 2. Liver Abscesses, continue Zosyn. Abscess culture grew - klebsiella pneumonia. -Repeat ct showed resolving abscess which has reduced in size from 7cm diameter to about 3cm. -Follow blood cx. ID recommends ertapenem IV for [address] scan. If abscess resolves, then DC ertapenem. 3. CVA - cont Supp care - cont aspirin and lipitor 4. HTN - Cont antihypertensives and adjust meds as necessary - on metoprolol, hydralazine and norvasc 5. ESRD - on HD, nephro following 6. IDDM - Cont Insulin coverage with tube feeding 7. Pressure ulcer, poa - present on Rt Ankle heel and sacrum - Wound care 8. Liver biopsy done, follow results==>no malignancy, nonviral infectious hepatitis- CEA, CA 19, CA125 pending -Abd fluid culture growing K.pneumoniae -PEG replaced 11/20/2016 -EGD: hiatal hernia - old peg noted - ulcer x 2 stomach - 20F pull peg placed, bumper at 3 1/[address] Hans Keating History Interval history: Patient is a 66 y/o woman with multiple medical problems including ESRD, HTN, DM and decub ulcers sent from [facility] for G tube malfunction. Her Ct abdomen on admission showed hepatic lesion, concern for malignancy, CT guided liver biopsy done Saturday,11/19/16. The Old g tube was removed on 11/16 and replaced 11/20. No new issues overnight. Hospitalist Physical - Constitutional Vitals: Temp Pulse Resp BP Pulse Ox 97.4 F L 93 H 18 137/67 100 11/24/16 08:00 11/24/16 08:00 11/24/16 08:00 11/24/16 08:00 11/24/16 08:00 General appearance: Present: no acute distress - EENT Eyes: Present: PERRL, EOM intact ENT: hearing intact, clear oral mucosa, dentition normal - Neck Neck: Present: supple, normal ROM - Respiratory Respiratory effort: normal Respiratory: bilateral: CTA - Cardiovascular Rhythm: regular Heart Sounds: Present: S1 & S2. Absent: gallop, rub - Extremities Extremities: no ischemia, No edema, Full ROM - Abdominal General gastrointestinal: soft, non-tender, non-distended, normal bowel sounds - Integumentary Integumentary: Present: clear, warm, dry - Neurologic Neurologic: CNII-XII intact, moves all extremities Results - Labs CBC & Chem 7: 11/23/16 10:17 11/23/16 10:17 Labs: Laboratory Last Values WBC 12.9 K/mm3 (4.5-11.0) H 11/23/16 10:17 RBC 2.88 M/mm3 (3.65-5.03) L 11/23/16 10:17 Hgb 8.8 gm/dl (10.1-14.3) L 11/23/16 10:17 Hct 27.1 % (30.3-42.9) L 11/23/16 10:17 MCV 94 fl (79-97) 11/23/16 10:17 MCH 31 pg (28-32) 11/23/16 10:17 MCHC 33 % (30-34) 11/23/16 10:17 RDW 16.7 % (13.2-15.2) H 11/23/16 10:17 Plt Count 304 K/mm3 (140-440) 11/23/16 10:17 Lymph % (Auto) 25.0 % (13.4-35.0) 11/19/16 11:05 [place] % (Auto) 8.7 % (0.0-7.3) H 11/19/16 11:05 Eos % (Auto) 3.8 % (0.0-4.3) 11/19/16 11:05 Baso % (Auto) 0.5 % (0.0-1.8) 11/19/16 11:05 Lymph # 3.0 K/mm3 (1.2-5.4) 11/19/16 11:05 [place] # 1.1 K/mm3 (0.0-0.8) H 11/19/16 11:05 Eos # 0.5 K/mm3 (0.0-0.4) H 11/19/16 11:05 Baso # 0.1 K/mm3 (0.0-0.1) 11/19/16 11:05 Seg Neutrophils % 62.0 % (40.0-70.0) 11/19/16 11:05 Seg Neutrophils # 7.5 K/mm3 (1.8-7.7) 11/19/16 11:05 PT 15.3 Sec. (12.2-14.9) H 11/19/16 08:57 INR 1.22 (0.87-1.13) H 11/19/16 08:57 APTT 41.7 Sec. (24.2-36.6) H 11/19/16 08:57 Sodium 140 mmol/L (137-145) 11/23/16 10:17 Potassium 3.9 mmol/L (3.6-5.0) 11/23/16 10:17 Chloride 100.3 mmol/L (98-107) 11/23/16 10:17 Carbon Dioxide 26 mmol/L (22-30) 11/23/16 10:17 Anion Gap 18 mmol/L 11/23/16 10:17 BUN 27 mg/dL (7-17) H 11/23/16 10:17 Creatinine 2.2 mg/dL (0.7-1.2) H 11/23/16 10:17 Estimated GFR 27 ml/min 11/23/16 10:17 BUN/Creatinine Ratio 12.27 % 11/23/16 10:17 Glucose 105 mg/dL (65-100) H 11/23/16 10:17 POC Glucose 209 (70-105) H 11/24/16 05:48 Calcium 8.8 mg/dL (8.4-10.2) 11/23/16 10:17 Phosphorus 2.3 mg/dL (2.5-4.5) L 11/19/16 11:05 Total Bilirubin 0.4 mg/dL (0.1-1.2) 11/23/16 10:17 AST 15 units/L (5-40) 11/23/16 10:17 ALT < 5 units/L (7-56) L 11/23/16 10:17 Alkaline Phosphatase 262 units/L (35-129) H 11/23/16 10:17 Total Protein 7.6 g/dL (6.3-8.2) 11/23/16 10:17 Albumin 2.5 g/dL (3.9-5) L 11/23/16 10:17 Albumin/Globulin Ratio 0.5 % 11/23/16 10:17 Tumor Marker AFP See scanned report 11/18/16 08:00 Carcinoembryonic Ag See scanned report 11/18/16 08:00 CA 19-9 Antigen 57 U/mL (<34) H 11/18/16 08:00 CA 125 Antigen 26 U/mL (<35) 11/18/16 08:00 PTH Intact 18.53 pg/mL (15-65) 11/19/16 15:53
--- NOTE | 2016-11-24 10:43 | XRay Report ---
Single view chest: Compared to 09/28/16. History: Right PICC line placement. Findings: Borderline cardiomegaly. Trachea is in normal position. Mild pulmonary venous congestion. Stable left permacath.. Impression: Mild pulmonary venous congestion. No acute consolidation.
[2016-11-24] MEDS: PEPCID PO SCH (11:30)
[2016-11-24] MEDS: CYMBALTA FEEDTUBE SCH (11:30)
[2016-11-24] MEDS: QUESTRAN PO SCH (11:31)
[2016-11-24] MEDS: Centrum Liq FEEDTUBE SCH (11:31)
[2016-11-24] MEDS: LOPRESSOR PO SCH ×2 (11:32→22:36)
[2016-11-24] MEDS: NORVASC FEEDTUBE SCH (11:32)
[2016-11-24] MEDS: LEVEMIR SUB-Q SCH (11:53)
[2016-11-24] MEDS: KEPPRA PO SCH ×3 (11:58→22:36)
[2016-11-24] MEDS: VITAMIN C FEEDTUBE SCH ×2 (11:58→22:35)
[2016-11-24] MEDS: COZAAR PO SCH (12:16)
--- NOTE | 2016-11-24 13:57 | Progress Note ---
Assessment and Plan Impression * End-stage renal disease on HD * Malfunctioning/dislodged PEG - replaced 11/20 * Liver abscess - Klebsiella * Hypertension * Type II DM * Anemia secondary to ESRD * Secondary hyperparathyroidism Plan: * Continue hemodialysis TTS * Abx per primary team/ID * GI following * Epogen w/ dialysis * Nutrition per primary team Subjective Date of service: 11/24/16 Principal diagnosis: liver abscess Interval history: No acute events overnight. Objective - Vital Signs Vital signs: Vital Signs - 12hr 11/24/16 11/24/16 08:00 11:32 Temperature 97.4 F L Pulse Rate [ 93 H Left Radial] Respiratory 18 Rate Blood Pressure 130/67 Blood Pressure 137/67 [Right Arm] O2 Sat by Pulse 100 Oximetry - General Appearance General appearance: well-developed, well-nourished EENT: ATNC Respiratory: Present: Clear to Ascultation Cardiology: regular, S1S2 Gastrointestinal: obese Integumentary: no rash Neurologic: other (somnolent) Musculoskeletal: other (no edema) - Lab 11/23/16 10:17 11/23/16 10:17 Most recent lab results Calcium 8.8 mg/dL (8.4-10.2) 11/23/16 10:17 Phosphorus 2.3 mg/dL (2.5-4.5) L 11/19/16 11:05
[2016-11-24] MEDS ORDERED: HEPARIN ONE ×2 (17:57→18:03)
--- NOTE | 2016-11-24 20:56 | Progress Note ---
Subjective Date of service: 11/24/16 Principal diagnosis: liver abscess Interval history: nO NEW ISSUES PHYSICAL EXAM VS - Afebrile. chest - good air entry cvs - s1s2 abd - bs+ LABS Abscess culture grew - klebsiella pneumonia. Repeat ct showed resolving abscess which has reduced in size from 7cm diameter to about 3cm. ASSESSMENT. 1. Liver abscess 2. Dm2 3. ESRD on hd 4. COPD RECOMMENDATION 1. D/C planning on IV ertapenem 1g daily for 2weeks, then repeat ct. If abscess resolves, d/c ertapenem. If not continue another 2weeks and repeat ct. 2. close follow up by pmd. 3. Will sign off. Please call if further ID input needed. Objective - Constitutional Vitals: Vital Signs Temp Pulse Resp BP Pulse Ox 99.1 F 98 H 20 123/54 100 11/24/16 19:25 11/24/16 19:25 11/24/16 19:25 11/24/16 19:25 11/24/16 08:00 Temperature -Last 24 Hours Temperature 99.1 F Temperature 97.4 F Temperature 97.4 F Temperature 98.4 F - Labs CBC & Chem 7: 11/23/16 10:17 11/23/16 10:17 Labs: Abnormal lab results 11/23/16 11/24/16 11/24/16 Range/Units 21:40 05:48 12:06 POC Glucose 180 H 209 H 254 H (70-105)
[2016-11-25] MEDS: NOVOLOG SUB-Q SCH ×4 (05:52→19:10)
[2016-11-25] MEDS: ZOSYN/NS 2.25 GM/50ML 2.25 GM/50 ML BAG IV SCH ×3 (06:47→22:42)
[2016-11-25 07:32] LABS: BUN/Creatinine Ratio 18.12; Calcium 8.3 mg/dL (8.4-10.2); Chloride 99.2 mmol/L (98-107); Potassium 3.4 mmol/L (3.6-5.0)
[2016-11-25 07:46] LABS: Basophils % (Auto) 0.6 % (0.0-1.8); Hematocrit 23.8 % (30.3-42.9); Hemoglobin 7.8 gm/dl (10.1-14.3); Mean Corpuscular HGB Conc 33 % (30-34); Mean Corpuscular Hemoglobin 31 pg (28-32); Mean Corpuscular Volume 94 fl (79-97); Platelet Count 265 K/mm3 (140-440); Red Blood Count 2.54 M/mm3 (3.65-5.03); Red Cell Distribution Width 16.4 % (13.2-15.2); White Blood Count 11.3 K/mm3 (4.5-11.0)
--- NOTE | 2016-11-25 10:01 | Progress Note ---
Assessment and Plan Assessment and plan: 1. Dislodged gastrostomy tube - replaced 2. Liver Abscesses, continue antibiotics. Abscess culture grew - klebsiella pneumonia. -Repeat ct showed resolving abscess which has reduced in size from 7cm diameter to about 3cm. -Follow blood cx. ID recommends ertapenem IV for [address] scan. If abscess resolves, then DC ertapenem. If not, then continue another 2 weeks of antibiotics. 3. CVA - cont Supp care - cont aspirin and lipitor 4. HTN - Cont antihypertensives and adjust meds as necessary - on metoprolol, hydralazine and norvasc 5. ESRD - on HD, nephro following 6. IDDM - Cont Insulin coverage with tube feeding 7. Pressure ulcer, poa - present on Rt Ankle heel and sacrum - Wound care 8. Liver biopsy done, follow results==>no malignancy, nonviral infectious hepatitis- CEA, CA 19, CA125 pending -Abd fluid culture growing K.pneumoniae -PEG replaced 11/20/2016 -EGD: hiatal hernia - old peg noted - ulcer x 2 stomach - 20F pull peg placed, bumper at 3 1/[address] Hans Keating 9. Disposition. Case management to arrange for antibiotics--L tach versus SNF versus home. History Interval history: Patient is a 66 y/o woman with multiple medical problems including ESRD, HTN, DM and decub ulcers sent from [facility] for G tube malfunction. Her Ct abdomen on admission showed hepatic lesion, concern for malignancy, CT guided liver biopsy done Saturday,11/19/16. The Old g tube was removed on 11/16 and replaced 11/20. No new issues overnight. Hospitalist Physical - Constitutional Vitals: Temp Pulse Resp BP Pulse Ox 98.6 F 96 H 20 124/57 96 11/25/16 08:23 11/25/16 08:23 11/25/16 08:23 11/25/16 08:23 11/25/16 08:23 General appearance: Present: no acute distress - EENT Eyes: Present: PERRL, EOM intact ENT: hearing intact, clear oral mucosa, dentition normal - Neck Neck: Present: supple, normal ROM - Respiratory Respiratory effort: normal Respiratory: bilateral: CTA - Cardiovascular Rhythm: regular Heart Sounds: Present: S1 & S2. Absent: gallop, rub - Extremities Extremities: no ischemia, No edema, Full ROM - Abdominal General gastrointestinal: soft, non-tender, non-distended, normal bowel sounds - Integumentary Integumentary: Present: clear, warm, dry - Neurologic Neurologic: CNII-XII intact, moves all extremities Results - Labs CBC & Chem 7: 11/25/16 07:05 11/25/16 07:05 Labs: Laboratory Last Values WBC 11.3 K/mm3 (4.5-11.0) H 11/25/16 07:05 RBC 2.54 M/mm3 (3.65-5.03) L 11/25/16 07:05 Hgb 7.8 gm/dl (10.1-14.3) L 11/25/16 07:05 Hct 23.8 % (30.3-42.9) L 11/25/16 07:05 MCV 94 fl (79-97) 11/25/16 07:05 MCH 31 pg (28-32) 11/25/16 07:05 MCHC 33 % (30-34) 11/25/16 07:05 RDW 16.4 % (13.2-15.2) H 11/25/16 07:05 Plt Count 265 K/mm3 (140-440) 11/25/16 07:05 Lymph % (Auto) 28.0 % (13.4-35.0) 11/25/16 07:05 [place] % (Auto) 10.1 % (0.0-7.3) H 11/25/16 07:05 Eos % (Auto) 4.0 % (0.0-4.3) 11/25/16 07:05 Baso % (Auto) 0.6 % (0.0-1.8) 11/25/16 07:05 Lymph # 3.2 K/mm3 (1.2-5.4) 11/25/16 07:05 [place] # 1.1 K/mm3 (0.0-0.8) H 11/25/16 07:05 Eos # 0.5 K/mm3 (0.0-0.4) H 11/25/16 07:05 Baso # 0.1 K/mm3 (0.0-0.1) 11/25/16 07:05 Seg Neutrophils % 57.3 % (40.0-70.0) 11/25/16 07:05 Seg Neutrophils # 6.5 K/mm3 (1.8-7.7) 11/25/16 07:05 PT 15.3 Sec. (12.2-14.9) H 11/19/16 08:57 INR 1.22 (0.87-1.13) H 11/19/16 08:57 APTT 41.7 Sec. (24.2-36.6) H 11/19/16 08:57 Sodium 139 mmol/L (137-145) 11/25/16 07:05 Potassium 3.4 mmol/L (3.6-5.0) L 11/25/16 07:05 Chloride 99.2 mmol/L (98-107) 11/25/16 07:05 Carbon Dioxide 28 mmol/L (22-30) 11/25/16 07:05 Anion Gap 15 mmol/L 11/25/16 07:05 BUN 29 mg/dL (7-17) H 11/25/16 07:05 Creatinine 1.6 mg/dL (0.7-1.2) H 11/25/16 07:05 Estimated GFR 39 ml/min 11/25/16 07:05 BUN/Creatinine Ratio 18.12 % 11/25/16 07:05 Glucose 104 mg/dL (65-100) H 11/25/16 07:05 POC Glucose 126 (70-105) H 11/25/16 06:36 Calcium 8.3 mg/dL (8.4-10.2) L 11/25/16 07:05 Phosphorus 2.3 mg/dL (2.5-4.5) L 11/19/16 11:05 Total Bilirubin 0.4 mg/dL (0.1-1.2) 11/23/16 10:17 AST 15 units/L (5-40) 11/23/16 10:17 ALT < 5 units/L (7-56) L 11/23/16 10:17 Alkaline Phosphatase 262 units/L (35-129) H 11/23/16 10:17 Total Protein 7.6 g/dL (6.3-8.2) 11/23/16 10:17 Albumin 2.5 g/dL (3.9-5) L 11/23/16 10:17 Albumin/Globulin Ratio 0.5 % 11/23/16 10:17 Tumor Marker AFP See scanned report 11/18/16 08:00 Carcinoembryonic Ag See scanned report 11/18/16 08:00 CA 19-9 Antigen 57 U/mL (<34) H 11/18/16 08:00 CA 125 Antigen 26 U/mL (<35) 11/18/16 08:00 PTH Intact 18.53 pg/mL (15-65) 11/19/16 15:53
[2016-11-25] MEDS: LEVEMIR SUB-Q SCH ×3 (10:36→19:25)
--- NOTE | 2016-11-25 11:31 | Progress Note ---
Assessment and Plan Impression * End-stage renal disease on HD * Malfunctioning/dislodged PEG - replaced 11/20 * Liver abscess - Klebsiella/Enterococcus * Hypertension * Type II DM * Anemia secondary to ESRD * Secondary hyperparathyroidism Plan: * Continue hemodialysis TTS * Abx per primary team/ID * GI following * Epogen w/ dialysis * Nutrition per primary team Subjective Date of service: 11/25/16 Principal diagnosis: liver abscess Interval history: No acute events overnight. Objective - Vital Signs Vital signs: Vital Signs - 12hr 11/25/16 11/25/16 00:00 08:23 Temperature 98.7 F 98.6 F Pulse Rate [ 101 H 96 H Right Radial] Respiratory 22 20 Rate Blood Pressure 137/63 124/57 [Right Arm] O2 Sat by Pulse 98 96 Oximetry - General Appearance General appearance: well-developed, well-nourished EENT: ATNC Respiratory: Present: Clear to Ascultation Cardiology: regular, S1S2 Gastrointestinal: normal, no tenderness, no distended Integumentary: no rash Neurologic: other (more interactive) Musculoskeletal: other (no edema) - Lab 11/25/16 07:05 11/25/16 07:05 Most recent lab results Calcium 8.3 mg/dL (8.4-10.2) L 11/25/16 07:05 Phosphorus 2.3 mg/dL (2.5-4.5) L 11/19/16 11:05
[2016-11-25] MEDS: CYMBALTA FEEDTUBE SCH (12:02)
[2016-11-25] MEDS: Centrum Liq FEEDTUBE SCH (12:02)
[2016-11-25] MEDS: PEPCID PO SCH (12:03)
[2016-11-25] MEDS: QUESTRAN PO SCH (12:03)
[2016-11-25] MEDS: LOPRESSOR PO SCH ×2 (12:05→22:45)
[2016-11-25] MEDS: COZAAR PO SCH (12:05)
[2016-11-25] MEDS: NORVASC FEEDTUBE SCH (12:06)
[2016-11-25] MEDS: KEPPRA PO SCH ×2 (12:32→22:51)
[2016-11-25] MEDS: SENOKOT FEEDTUBE SCH ×2 (12:32)
[2016-11-25] MEDS: VITAMIN C FEEDTUBE SCH ×2 (12:33→22:45)
[2016-11-26] MEDS: NOVOLOG SUB-Q SCH ×5 (03:19→19:35)
[2016-11-26] MEDS: LEVEMIR SUB-Q SCH ×3 (03:22→21:35)
[2016-11-26] MEDS: TYLENOL FEEDTUBE PRN (03:40)
[2016-11-26] MEDS: ZOSYN/NS 2.25 GM/50ML 2.25 GM/50 ML BAG IV SCH ×3 (05:48→21:23)
[2016-11-26 08:43] LABS: Basophils % (Auto) 0.5 % (0.0-1.8); Eosinophils % (Auto) 4.3 % (0.0-4.3); Hematocrit 26.5 % (30.3-42.9); Hemoglobin 8.5 gm/dl (10.1-14.3); Mean Corpuscular HGB Conc 32 % (30-34); Mean Corpuscular Hemoglobin 30 pg (28-32); Mean Corpuscular Volume 92 fl (79-97); Platelet Count 270 K/mm3 (140-440); Red Blood Count 2.87 M/mm3 (3.65-5.03); Red Cell Distribution Width 16.5 % (13.2-15.2); White Blood Count 12.9 K/mm3 (4.5-11.0)
--- NOTE | 2016-11-26 08:53 | Progress Note ---
Assessment and Plan Impression * End-stage renal disease on HD * Malfunctioning/dislodged PEG - replaced 11/20 * Liver abscess - Klebsiella/Enterococcus * Hypertension * Type II DM * Anemia secondary to ESRD * Secondary hyperparathyroidism Plan: * Continue hemodialysis TTS * Abx per primary team/ID * GI following * Epogen w/ dialysis * Nutrition per primary team Subjective Date of service: 11/26/16 Principal diagnosis: liver abscess Interval history: No acute events overnight. Objective - Vital Signs Vital signs: Vital Signs - 12hr 11/25/16 11/25/16 11/25/16 22:00 22:45 23:00 Temperature 98.6 F Pulse Rate 66 Pulse Rate [ 108 H Right Radial] Respiratory 22 Rate Blood Pressure 140/69 Blood Pressure 140/71 [Right Arm] O2 Sat by Pulse 96 108 H Oximetry 11/26/16 08:41 Temperature 97.3 F L Pulse Rate Pulse Rate [ 88 Right Radial] Respiratory 20 Rate Blood Pressure Blood Pressure 128/92 [Right Arm] O2 Sat by Pulse 99 Oximetry - General Appearance General appearance: well-developed, well-nourished EENT: ATNC Respiratory: Present: Clear to Ascultation Cardiology: regular, S1S2 Gastrointestinal: normal, no tenderness, no distended Integumentary: no rash Musculoskeletal: other (no edema) Psychiatric: cooperative - Lab 11/26/16 08:32 11/26/16 08:32 Most recent lab results Calcium 8.3 mg/dL (8.4-10.2) L 11/25/16 07:05 Phosphorus 2.3 mg/dL (2.5-4.5) L 11/19/16 11:05
[2016-11-26 09:08] LABS: BUN/Creatinine Ratio 19.16; Calcium 8.9 mg/dL (8.4-10.2); Chloride 97.5 mmol/L (98-107); Potassium 3.4 mmol/L (3.6-5.0)
--- NOTE | 2016-11-26 09:59 | Progress Note ---
Assessment and Plan Assessment and plan: 1. Dislodged gastrostomy tube - replaced 2. Liver Abscesses, continue antibiotics. Abscess culture grew - klebsiella pneumonia. -Repeat ct showed resolving abscess which has reduced in size from 7cm diameter to about 3cm. -Follow blood cx. ID recommends ertapenem IV for [address] scan. If abscess resolves, then DC ertapenem. If not, then continue another 2 weeks of antibiotics. 3. CVA - cont Supp care - cont aspirin and lipitor 4. HTN - Cont antihypertensives and adjust meds as necessary - on metoprolol, hydralazine and norvasc 5. ESRD - on HD, nephro following 6. IDDM - Cont Insulin coverage with tube feeding 7. Pressure ulcer, poa - present on Rt Ankle heel and sacrum - Wound care 8. Liver biopsy done, follow results==>no malignancy, nonviral infectious hepatitis- CEA, CA 19, CA125 pending -Abd fluid culture growing K.pneumoniae -PEG replaced 11/20/2016 -EGD: hiatal hernia - old peg noted - ulcer x 2 stomach - 20F pull peg placed, bumper at 3 1/[address] Hans Keating 9. Disposition. Case management to arrange for antibiotics--L tach versus SNF versus home. History Interval history: Patient is a 66 y/o woman with multiple medical problems including ESRD, HTN, DM and decub ulcers sent from [facility] for G tube malfunction. Her Ct abdomen on admission showed hepatic lesion, concern for malignancy, CT guided liver biopsy done Saturday,11/19/16. The Old g tube was removed on 11/16 and replaced 11/20. No new issues overnight. Hospitalist Physical - Constitutional Vitals: Temp Pulse Resp BP Pulse Ox 97.3 F L 88 20 128/92 99 11/26/16 08:41 11/26/16 08:41 11/26/16 08:41 11/26/16 08:41 11/26/16 08:41 General appearance: Present: no acute distress - EENT Eyes: Present: PERRL, EOM intact ENT: hearing intact, clear oral mucosa, dentition normal - Neck Neck: Present: supple, normal ROM - Respiratory Respiratory effort: normal Respiratory: bilateral: CTA - Cardiovascular Rhythm: regular Heart Sounds: Present: S1 & S2. Absent: gallop, rub - Extremities Extremities: no ischemia, No edema, Full ROM - Abdominal General gastrointestinal: soft, non-tender, non-distended, normal bowel sounds - Integumentary Integumentary: Present: clear, warm, dry - Neurologic Neurologic: CNII-XII intact, moves all extremities Results - Labs CBC & Chem 7: 11/26/16 08:32 11/26/16 08:32 Labs: Laboratory Last Values WBC 12.9 K/mm3 (4.5-11.0) H 11/26/16 08:32 RBC 2.87 M/mm3 (3.65-5.03) L 11/26/16 08:32 Hgb 8.5 gm/dl (10.1-14.3) L 11/26/16 08:32 Hct 26.5 % (30.3-42.9) L 11/26/16 08:32 MCV 92 fl (79-97) 11/26/16 08:32 MCH 30 pg (28-32) 11/26/16 08:32 MCHC 32 % (30-34) 11/26/16 08:32 RDW 16.5 % (13.2-15.2) H 11/26/16 08:32 Plt Count 270 K/mm3 (140-440) 11/26/16 08:32 Lymph % (Auto) 23.2 % (13.4-35.0) 11/26/16 08:32 [place] % (Auto) 8.7 % (0.0-7.3) H 11/26/16 08:32 Eos % (Auto) 4.3 % (0.0-4.3) 11/26/16 08:32 Baso % (Auto) 0.5 % (0.0-1.8) 11/26/16 08:32 Lymph # 3.0 K/mm3 (1.2-5.4) 11/26/16 08:32 [place] # 1.1 K/mm3 (0.0-0.8) H 11/26/16 08:32 Eos # 0.6 K/mm3 (0.0-0.4) H 11/26/16 08:32 Baso # 0.1 K/mm3 (0.0-0.1) 11/26/16 08:32 Seg Neutrophils % 63.3 % (40.0-70.0) 11/26/16 08:32 Seg Neutrophils # 8.2 K/mm3 (1.8-7.7) H 11/26/16 08:32 PT 15.3 Sec. (12.2-14.9) H 11/19/16 08:57 INR 1.22 (0.87-1.13) H 11/19/16 08:57 APTT 41.7 Sec. (24.2-36.6) H 11/19/16 08:57 Sodium 137 mmol/L (137-145) 11/26/16 08:32 Potassium 3.4 mmol/L (3.6-5.0) L 11/26/16 08:32 Chloride 97.5 mmol/L (98-107) L 11/26/16 08:32 Carbon Dioxide 27 mmol/L (22-30) 11/26/16 08:32 Anion Gap 16 mmol/L 11/26/16 08:32 BUN 46 mg/dL (7-17) H 11/26/16 08:32 Creatinine 2.4 mg/dL (0.7-1.2) H 11/26/16 08:32 Estimated GFR 25 ml/min 11/26/16 08:32 BUN/Creatinine Ratio 19.16 % 11/26/16 08:32 Glucose 104 mg/dL (65-100) H 11/26/16 08:32 POC Glucose 134 (70-105) H 11/26/16 05:52 Calcium 8.9 mg/dL (8.4-10.2) 11/26/16 08:32 Phosphorus 2.3 mg/dL (2.5-4.5) L 11/19/16 11:05 Total Bilirubin 0.4 mg/dL (0.1-1.2) 11/23/16 10:17 AST 15 units/L (5-40) 11/23/16 10:17 ALT < 5 units/L (7-56) L 11/23/16 10:17 Alkaline Phosphatase 262 units/L (35-129) H 11/23/16 10:17 Total Protein 7.6 g/dL (6.3-8.2) 11/23/16 10:17 Albumin 2.5 g/dL (3.9-5) L 11/23/16 10:17 Albumin/Globulin Ratio 0.5 % 11/23/16 10:17 Tumor Marker AFP See scanned report 11/18/16 08:00 Carcinoembryonic Ag See scanned report 11/18/16 08:00 CA 19-9 Antigen 57 U/mL (<34) H 11/18/16 08:00 CA 125 Antigen 26 U/mL (<35) 11/18/16 08:00 PTH Intact 18.53 pg/mL (15-65) 11/19/16 15:53
[2016-11-26] MEDS: Centrum Liq FEEDTUBE SCH (11:37)
[2016-11-26] MEDS: NORVASC FEEDTUBE SCH (11:42)
[2016-11-26] MEDS: CYMBALTA FEEDTUBE SCH (11:43)
[2016-11-26] MEDS: COZAAR PO SCH (11:46)
[2016-11-26] MEDS: PEPCID PO SCH (11:47)
[2016-11-26] MEDS: LOPRESSOR PO SCH ×2 (11:49→21:30)
[2016-11-26] MEDS: SENOKOT FEEDTUBE SCH (11:53)
[2016-11-26] MEDS: VITAMIN C FEEDTUBE SCH ×2 (11:54→21:30)
[2016-11-26] MEDS: QUESTRAN PO SCH (11:55)
[2016-11-26] MEDS: KEPPRA PO SCH (15:33)
[2016-11-26] MEDS: DILAUDID IV PRN (15:35)
[2016-11-27] MEDS: ZOSYN/NS 2.25 GM/50ML 2.25 GM/50 ML BAG IV SCH ×2 (05:53→15:41)
[2016-11-27] MEDS: KEPPRA PO SCH ×2 (05:58→10:00)
[2016-11-27 06:45] LABS: Basophils % (Auto) 0.6 % (0.0-1.8); Eosinophils % (Auto) 4.2 % (0.0-4.3); Hematocrit 25.3 % (30.3-42.9); Hemoglobin 8.2 gm/dl (10.1-14.3); Mean Corpuscular HGB Conc 32 % (30-34); Mean Corpuscular Hemoglobin 30 pg (28-32); Mean Corpuscular Volume 92 fl (79-97); Platelet Count 268 K/mm3 (140-440); Red Blood Count 2.75 M/mm3 (3.65-5.03); Red Cell Distribution Width 16.1 % (13.2-15.2); White Blood Count 13.2 K/mm3 (4.5-11.0)
[2016-11-27 07:12] LABS: BUN/Creatinine Ratio 19.06; Chloride 98.1 mmol/L (98-107); Potassium 3.8 mmol/L (3.6-5.0)
[2016-11-27] MEDS: NOVOLOG SUB-Q SCH ×3 (08:00→15:43)
[2016-11-27] MEDS: LEVEMIR SUB-Q SCH (08:00)
--- NOTE | 2016-11-27 08:12 | Discharge Summary ---
Providers - Providers Date of Admission: 11/15/16 21:30 Date of discharge: 11/27/16 Attending physician: KEZIA LINCOLN 11/16/16 07:23 Consult to Wound/ET Nurse [CONS] Routine Reason For Exam: wound eval 11/16/16 08:17 Consult to Physician [CONS] Routine Consulting Provider: KRISHNA PIKE Reason For Exam: peg tube malfunction Place consult to:: dr. pike Notified:: office Phone number called:: Was contact made?: Yes If yes, spoke with:: kin Cummings called:: 10:15 11/16/16 09:32 Consult to Physician [CONS] Routine Consulting Provider: SUZIE MIJARES Reason For Exam: dialysis Place consult to:: Suzie Mijares Notified:: [facility] service Phone number called:: [phone] Was contact made?: Yes 11/22/16 08:02 Consult to Physician [CONS] Routine Consulting Provider: DANIELLE MINAYA Reason For Exam: Liver abscess Place consult to:: Dr. Minaya Notified:: office Phone number called:: Was contact made?: Yes If yes, spoke with:: orlando Cummings called:: 11:38 11/22/16 11:37 Consult to Dietitian/Nutrition [CONS] Stat Physician Instructions: Reason For Exam: Reason for Consult: Write/Manage Tube Feeding 11/23/16 13:23 PICC Line Insertion [Consult to PICC Line RN] [CONS] Stat Reason For Exam: prolong ABX Type Line:: PICC Primary care physician: [employer]RA[employer] Hospitalization Reason for admission: G tube malfunction Condition: Serious Hospital course: Patient is a 66 y/o woman with multiple medical problems including ESRD, HTN, DM and decub ulcers sent from [facility] for G tube malfunction. Her Ct abdomen on admission showed hepatic lesion, concern for malignancy, CT guided liver biopsy done Saturday,11/19/16. The Old g tube was removed on 11/16 and replaced 11/20 via EGD. Liver biopsy was done which revealed no malignancy and nonviral infectious hepatitis. Abdominal fluid culture grew Klebsiella pneumonia. The patient was noted to have multiple liver abscesses treated with IV antibiotics. ID is following. The EGD done to replace the gastrostomy tube revealed hiatal hernia and ulcer 2 in the stomach. Other complications during hospital stay included management of medical problems such as hypertension, ESRD and IDDM. Patient was seen by nephrology consultation. Patient was maintained on metoprolol, hydralazine and Norvasc for blood pressure. Patient also was maintained on appropriate insulin coverage for diabetes. Patient has slow but significant improvement throughout hospitalization. Repeat CT scan show resolving abscess which reduced in size from 7 cm diameter to about 3 cm diameter. Patient eventually stabilized and was felt to have received maximal hospital benefit for discharge. Recommendations were for IV ertapenem 1 g daily for [address] scan. If abscess resolves, d/c ertapenem. If not continue another 2weeks and repeat ct. case management was consult and antibiotics are arranged for alf. Dedicated discharge time 35 minutes. Disposition: DC/TX SNF W [facility] Time spent for discharge: 35 - Discharge Diagnoses (1) Liver abscess Status: Acute (2) Dislodged gastrostomy tube Status: Acute (3) Leukocytosis Status: Acute Qualifiers: Leukocytosis type: L (4) Mass of multiple sites of liver Status: Acute (5) ESRD (end stage renal disease) Status: Chronic (6) HTN (hypertension) Status: Chronic Qualifiers: Hypertension type: essential hypertension Qualified Code(s): I10 - Essential (primary) hypertension (7) IDDM (insulin dependent diabetes mellitus) Status: Chronic (8) Acute and chronic respiratory failure with hypercapnia Status: Acute (9) Anemia, chronic renal failure Status: Acute Qualifiers: Chronic kidney disease stage: C (10) End-stage renal disease needing dialysis Status: Acute (11) History of stroke Status: Chronic Core Measure Documentation - Palliative Care Palliative Care/ Comfort Measures: Not Applicable - Core Measures Any of the following diagnoses?: none Exam - Constitutional Vitals: Temp Pulse Resp BP Pulse Ox 98.7 F 92 H 20 120/61 100 11/27/16 01:00 11/27/16 01:00 11/27/16 01:00 11/27/16 01:00 11/26/16 23:25 General appearance: Present: no acute distress, well-nourished - EENT Eyes: Present: PERRL ENT: hearing intact, clear oral mucosa - Neck Neck: Present: supple, normal ROM - Respiratory Respiratory effort: normal Respiratory: bilateral: CTA - Cardiovascular Heart Sounds: Present: S1 & S2. Absent: rub, click - Extremities Extremities: pulses symmetrical, No edema Peripheral Pulses: within normal limits - Abdominal General gastrointestinal: Present: soft, non-tender, non-distended, normal bowel sounds Female genitourinary: Present: normal - Integumentary Integumentary: Present: clear, warm, dry - Musculoskeletal Musculoskeletal: gait normal, strength equal bilaterally - Psychiatric Psychiatric: appropriate mood/affect, intact judgment & insight - Neurologic Neurologic: CNII-XII intact, moves all extremities Plan Activity: no restrictions Weight Bearing Status: Weight Bear as Tolerated Diet: diabetic Follow up with: PRIMARY CARE, [Primary Care Provider] - 3-5 Days DANIELLE MINAYA MD [Staff Physician] - 7 Days Prescriptions: Ertapenem (Nf) [[facility]] 1 gm IV QDAY 28 Days
--- NOTE | 2016-11-27 08:57 | Progress Note ---
Assessment and Plan Impression * End-stage renal disease on HD * Malfunctioning/dislodged PEG - replaced 11/20 * Liver abscess - Klebsiella/Enterococcus * Hypertension * Type II DM * Anemia secondary to ESRD * Secondary hyperparathyroidism Plan: * Continue hemodialysis TTS * Abx per primary team/ID * GI following * Epogen w/ dialysis * Nutrition per primary team Subjective Date of service: 11/27/16 Principal diagnosis: liver abscess Interval history: Patient seen resting comfortably Objective - Vital Signs Vital signs: Vital Signs - 12hr 11/26/16 11/26/16 11/27/16 21:30 23:25 01:00 Temperature 98.8 F 98.7 F Pulse Rate 103 H Pulse Rate [ 90 92 H Left Radial] Respiratory 20 20 Rate Blood Pressure 135/61 Blood Pressure 120/60 120/61 [Left Arm] O2 Sat by Pulse 100 Oximetry 11/27/16 07:15 Temperature 98.3 F Pulse Rate Pulse Rate [ 91 H Left Radial] Respiratory 20 Rate Blood Pressure Blood Pressure 109/56 [Left Arm] O2 Sat by Pulse 100 Oximetry - General Appearance General appearance: well-developed, well-nourished EENT: ATNC Neck: no JVD Respiratory: Present: Clear to Ascultation Cardiology: regular, S1S2 Gastrointestinal: normal, no tenderness, no distended Integumentary: warm and dry Musculoskeletal: other (no edema) Psychiatric: cooperative - Lab 11/27/16 05:00 11/27/16 05:00 Most recent lab results Calcium 9.0 mg/dL (8.4-10.2) 11/27/16 05:00 Phosphorus 2.3 mg/dL (2.5-4.5) L 11/19/16 11:05
[2016-11-27] MEDS: Centrum Liq FEEDTUBE SCH (10:00)
[2016-11-27] MEDS: NORVASC FEEDTUBE SCH (10:00)
[2016-11-27] MEDS: LOPRESSOR PO SCH (10:00)
[2016-11-27] MEDS: CYMBALTA FEEDTUBE SCH (10:00)
[2016-11-27] MEDS: COZAAR PO SCH (10:00)
[2016-11-27] MEDS ORDERED: NACL 0.9 (PRIMING MACHINE ONLY DIALYSIS) MC ONE (10:17)
[2016-11-27] MEDS ORDERED: HEPARIN ONE (10:33)
[2016-11-27] MEDS: PEPCID PO SCH (12:56)
[2016-11-27] MEDS: QUESTRAN PO SCH (12:56)
[2016-11-27] MEDS: SENOKOT FEEDTUBE SCH (12:56)
[2016-11-27] MEDS: VITAMIN C FEEDTUBE SCH (12:57)
[2016-11-27 14:43] VITALS: BP 98/47
[2016-11-27] MEDS: HEPARIN IV PRN (15:05)
== END 2016-11-27 18:15 | DRG 393 ==
LOC: ED 15:49 → 3A 21:30
PROVIDERS: ADMIT Internal Medicine; ATTEND Hospitalist
PROC: 0DW6XUZ Revision of Feeding Device in Stomach, External Approach (ICD-10-PCS; 2016-11-16)
PROC: 0F913ZX Drainage of Right Lobe Liver, Percutaneous Approach, Diagnostic (ICD-10-PCS; principal; 2016-11-19)
PROC: 0DH63UZ Insertion of Feeding Device into Stomach, Percutaneous Approach (ICD-10-PCS; 2016-11-19)
PROC: 3E0G76Z Introduction of Nutritional Substance into Upper GI, Via Natural or Artificial Opening (ICD-10-PCS; 2016-11-19)
PROC: 5A1D60Z (ICD-10-PCS; 2016-11-27)
DX: K94.23 Gastrostomy malfunction (principal); N18.6 End stage renal disease; K75.0 Abscess of liver; G93.40 Encephalopathy, unspecified; J96.22 Acute and chronic respiratory failure with hypercapnia; B19.9 Unspecified viral hepatitis without hepatic coma; I69.354 Hemiplegia and hemiparesis following cerebral infarction affecting left non-dominant side; I13.2 Hypertensive heart and chronic kidney disease with heart failure and with stage 5 chronic kidney disease, or end stage renal disease; I69.351 Hemiplegia and hemiparesis following cerebral infarction affecting right dominant side; N25.81 Secondary hyperparathyroidism of renal origin; E46 Unspecified protein-calorie malnutrition; I50.9 Heart failure, unspecified; M19.90 Unspecified osteoarthritis, unspecified site; F41.9 Anxiety disorder, unspecified; F03.90 Unspecified dementia, unspecified severity, without behavioral disturbance, psychotic disturbance, mood disturbance, and anxiety; J45.909 Unspecified asthma, uncomplicated; J44.9 Chronic obstructive pulmonary disease, unspecified; E11.22 Type 2 diabetes mellitus with diabetic chronic kidney disease; E66.9 Obesity, unspecified; K44.9 Diaphragmatic hernia without obstruction or gangrene; K25.9 Gastric ulcer, unspecified as acute or chronic, without hemorrhage or perforation; D63.8 Anemia in other chronic diseases classified elsewhere; Z68.34 Body mass index [BMI] 34.0-34.9, adult; B96.1 Klebsiella pneumoniae [K. pneumoniae] as the cause of diseases classified elsewhere; R16.0 Hepatomegaly, not elsewhere classified; L89.519 Pressure ulcer of right ankle, unspecified stage; L89.629 Pressure ulcer of left heel, unspecified stage; L89.159 Pressure ulcer of sacral region, unspecified stage; Z79.4 Long term (current) use of insulin; Z79.899 Other long term (current) drug therapy; Z99.2 Dependence on renal dialysis; Z91.041 Radiographic dye allergy status; Z79.82 Long term (current) use of aspirin
CPT/HCPCS: 10160; 36415; 47000; 71010; 74000; 74150; 74176; 77012; 80048; 80053; 82106; 82378; 82962; 83970; 84100; 85025; 85027; 85610; 85730; 86301; 86304; 87076; 87116; 87186; 88305; 88307; 88313; 88333; A9270-GY; J0690; J1170; J1644; J1815; J1818; J2250; J2543; J2704; J3010; J3480; J7030; J7042